=== PATIENT | male | born 1985 | race Caucasian/White ===

== ENCOUNTER 2022-05-22 08:07 | Emergency (ER) | payer BC, SELFPAY ==
[2022-05-22] VITALS (17 sets, daily range): BP systolic 123–155; BP diastolic 80–101; PULSE 76–88; RESP 14–30; TEMP 36.8; O2SAT 95–98; BMI 38.0; BMI 37.7
--- NOTE | 2022-05-22 08:13 | ED.RN ---
DR. ALEXIS AWARE
--- NOTE | 2022-05-22 08:29 | EKG12_ITS ---
Test Reason : DYSRHYTHMIA Blood Pressure : / mmHG Vent. Rate : 077 BPM Atrial Rate : 077 BPM P-R Int : 190 ms QRS Dur : 094 ms QT Int : 368 ms P-R-T Axes : 015 029 013 degrees QTc Int : 416 ms Normal sinus rhythm Normal ECG Confirmed by KESHA REZA, JESSE ([id number]), videotape editor DONNIE MULLER ([id number]) on 05/24/2022 6:23:59 AM Referred By: REUBEN Confirmed By:CIELO REBOLLEDO MD
--- NOTE | 2022-05-22 08:29 | CT_ITS ---
STUDY: CT HEAD STROKE PROTOCOL W/O CONTRAST INJECTION REASON FOR EXAM: Male, 36 years old. Neuro deficit, acute, stroke suspected; RUE weak RADIATION DOSAGE (If Supplied By Facility): CTDIvol = ( ) mGy, DLP = ( ) mGycm TECHNIQUE: Transaxial CT imaging of the brain was performed without administration of intravenous contrast material. Individualized dose optimization techniques were used for this CT. COMPARISON: No relevant priors. FINDINGS: Normal soft tissue structures. Normal calvarium. Normal size ventricles and extra-axial spaces for the patient''s age. Normal white matter tracts of the cerebral hemispheres. There is a 2 cm x 1.4 cm well-defined hematoma in the left basal ganglion in the anterior aspect of the thalamus and posterior aspect of the putamen. Normal brainstem. Normal cerebellum. There is no intracranial hemorrhage. There are no findings of an acute ischemic infarction. Normal visualized paranasal sinuses. ASPECT score: 8 CT/STROKE Brain/Head without Cont IMPRESSION: 2 cm x 1.4 cm well-defined hematoma in the left basal ganglia as described. N.B. : The above Results were Read Back by Rolo Parker MD to Armen Hsieh and understanding confirmed on 05/22/2022 09:15:55 (ET). Electronically Signed: Rolo Parker MD at 9:17 EST ,
--- NOTE | 2022-05-22 08:30 | ED.VIS.STROK ---
HPI History of Present Illness Chief Complaint: Neuro S/Sx Informant: patient and family (mother) Onset/Context/Timing Onset: Yesterday Context: - (Unknown onset, but noticed weakness in his right upper extremity last night 2029) Timing: Continuous Quality and Location: Positive for Right Facial Droop (According to mother) and Right Arm Weakness Current Severity: Moderate Maximum Severity: Moderate Worsened by: Nothing Relieved by: Nothing Associated Symptoms Associated Symptoms: Positive for Headache (Off and on but not unusual for him); Negative for Nausea, Vomiting or Chest Pain Narrative Narrative: Patient is a healthy 36-year-old male, he was normal at work yesterday, but today he was weak with his right upper extremity and having trouble writing. He is right-hand dominant. Mother is noticing a right facial droop, but she, the father, and the patient all agree that he is talking normally. He has had no trouble understand what others are saying or speaking. He has had no trouble walking or leg weakness. He denies any numbness or tingling. He first noticed this last night when he was trying to lift things up over his head, however he does not know when exactly the time of onset was. He has had no falls or injuries. No chest symptoms. He takes no medications and does not know substances/drugs. PFSH PFSH Medical History no medical history no medical history Home Medications NK 05/22/22 [History Last Taken Unknown] Allergy/AdvReac Type Severity Reaction Status Date / Time No Known Allergies Allergy Verified 05/22/22 08:08 Surgical History no surgical history no surgical history Social History Smoking Status: Never smoker ROS ROS ED Constitutional Constitutional ED: Denies chills or fever(s) Eyes Eyes: Denies change in vision or diplopia ENT ENT ED: Denies rhinorrhea or sore throat Cardiovascular Cardiovascular: Denies chest pain or palpitations Respiratory/Chest Respiratory/Chest: Denies cough or dyspnea Gastrointestinal Gastrointestinal: Denies abdominal pain, diarrhea, nausea or vomiting Genitourinary Genitourinary ED: Denies dysuria or hematuria Musculoskeletal Musculoskeletal: Denies back pain or neck pain Integumentary Denies abscess or rash Neurologic Neurologic: Reports as per HPI, headache(s) and weakness; Denies paresthesias Psychiatric Psychiatric: Denies anxiety or suicidal thoughts EXAM Physical Exam Const Vital Signs: 05/22/22 08:09 05/22/22 08:40 05/22/22 08:40 Temperature 98.2 F Temperature Source Temporal Pulse Rate 88 77 Respiratory Rate 14 30 H Blood Pressure 147/96 H 135/94 H Blood Pressure Mean 113 107 Pulse Ox 97 97 97 Oxygen Delivery Method Room Air Room Air Room Air 05/22/22 08:45 05/22/22 08:59 05/22/22 09:28 Temperature Temperature Source Pulse Rate 85 82 Respiratory Rate 20 H 20 H Blood Pressure 135/94 H 132/100 H Blood Pressure Mean 107 110 Pulse Ox 97 96 96 Oxygen Delivery Method Room Air Room Air Room Air 05/22/22 09:31 05/22/22 09:31 05/22/22 09:46 Temperature Temperature Source Pulse Rate 87 86 84 Respiratory Rate 28 H 18 18 Blood Pressure 152/93 H 152/93 H 150/101 H Blood Pressure Mean 112 112 117 Pulse Ox 97 97 97 Oxygen Delivery Method Room Air Room Air 05/22/22 09:59 05/22/22 10:01 05/22/22 10:13 Temperature Temperature Source Pulse Rate 82 78 76 Respiratory Rate 16 20 H 16 Blood Pressure 155/80 H 155/80 H 144/93 H Blood Pressure Mean 105 105 110 Pulse Ox 96 95 95 Oxygen Delivery Method Room Air Room Air Room Air 05/22/22 10:15 05/22/22 10:30 05/22/22 10:48 Temperature Temperature Source Pulse Rate 80 76 76 Respiratory Rate 18 18 18 Blood Pressure 140/88 H 130/93 H 151/99 H Blood Pressure Mean 105 105 116 Pulse Ox 95 98 96 Oxygen Delivery Method Room Air Room Air 05/22/22 10:45 05/22/22 11:00 05/22/22 11:00 Temperature Temperature Source Pulse Rate 76 81 83 Respiratory Rate 20 H 18 18 Blood Pressure 151/99 H 123/84 H 123/84 H Blood Pressure Mean 116 97 97 Pulse Ox 96 95 95 Oxygen Delivery Method Room Air Room Air Room Air 05/22/22 11:15 05/22/22 11:20 Temperature Temperature Source Pulse Rate 78 78 Respiratory Rate 16 16 Blood Pressure 123/81 H 123/81 H Blood Pressure Mean 95 95 Pulse Ox 96 98 Oxygen Delivery Method Room Air Positive well nourished and well developed General Appearance ED: well developed and NAD HEENT Reports moist mucous membranes normocephalic and atraumatic Eyes PERRL and EOMs intact bilaterally Neck full ROM and supple Resp normal respiratory effort and clear to auscultation bilaterally Cardio regular rate, regular rhythm and no murmurs GI non-tender and non-distended Auscultation: normoactive bowel sounds Palpation: soft Back/Spine no CVA tenderness General Back: other FROM Extremity normal to inspection General Extremety ED: Negative for edema, pulses abnormal or tenderness General Extremity: Negative for edema or pulses abnormal Neuro oriented x3, CN's II-XII intact bilaterally and no sensory deficits noted Neuro Narrative: Weakness with drift only, right upper extremity only. Slight right lower facial droop, it corrects when he smiles. Normal neurologic exam otherwise. Sensorium / Orientation: awake and alert Psych mental status grossly normal Skin no rashes or lesions noted and no wounds NIHSS NIHSS Initial: 1a Level of Consciousness: 0 1b LOC Questions (Score 2 if aphasic/stupor): 0 1c LOC Commands (Only score 1st attempt): 0 2 Best Gaze (If aphasic, use reflexive mvmts.): 0 3 Visual: 0 4 Facial Palsy: 1 5 Motor Arm Right (UN = amputation/fusion): 1 5 Motor Arm Left: 0 6 Motor Leg Right: 0 6 Motor Leg Left: 0 7 Limb ataxia (Only + if out of proportion): 0 8 Sensory (Aphasia/stupor=0 or 1, coma=2): 0 9 Best Language: 0 10 Dysarthria (mute, coma=2, intubated=UN): 0 11 Extinction and Inattention (only scored if +): 0 Total Score: 2 MDM MDM MDM Narrative Medical decision making narrative: Emergent stroke CT ordered, it shows a left basal ganglia bleed without mass-effect. I quickly discussed with family, they are okay going to [facility] for this, I discussed with radiologist. My interpretation of the CT agrees with that of the radiologist. Also discussed with Dr. Das on the hemorrhage line at [facility] who accepts the patient, agrees to get the patient there emergently via air, my clinical judgment is that the patient does not need airway protection via intubation at this time since he is awake and communicative and doing very well, and this started last night and there is no evidence of a quickly expanding large hemorrhage. There is no evidence of mass-effect/shift/herniation on the CT. Patient is getting angiography prior to transfer and we are sending the images, and calling for air transport. At this time his blood pressure is 132 systolic, prn antihypertensives are ordered to be given as needed to keep him out of below 140. CTA images reviewed, my interpretation of the CT agrees with that of the radiologist. Patient's blood pressure did end up climbing, so after several doses of antihypertensives were given and he climbed again, patient was placed on a nicardipine drip prior to transfer. Patient left in same condition as prior evaluation, stable airway and level of consciousness, conversive. Lab Data Attestation: I reviewed the patient's lab results. Labs: Laboratory Results - last 24 hr 05/22/22 05/22/22 05/22/22 08:42 08:42 08:42 WBC 7.6 RBC 5.72 Hgb 16.8 H Hct 49.5 MCV 86.5 MCH 29.4 MCHC 33.9 RDW Std Deviation 38.9 RDW Coeff of Jordi 12.4 Plt Count 272 MPV 9.0 Immature Gran % (Auto) 0.300 Neut % (Auto) 64.8 Lymph % (Auto) 23.7 [place] % (Auto) 8.3 Eos % (Auto) 2.1 Baso % (Auto) 0.8 Absolute Neuts (auto) 4.9 Absolute Lymphs (auto) 1.79 Nucleated RBC % 0 PT 13.5 INR 1.1 APTT 31.9 Sodium 139 Potassium 4.4 Chloride 106 Carbon Dioxide 30.0 Anion Gap 3 L BUN 16 Creatinine 1.05 Estim Creat Clear Calc 86.08 Est GFR (MDRD) Af Amer 101 Est GFR (MDRD) Non-Af 84 BUN/Creatinine Ratio 15.2 Glucose 121 H Calcium 9.4 Troponin I High Sens 7 POC Glucose 05/22/22 08:42 WBC RBC Hgb Hct MCV MCH MCHC RDW Std Deviation RDW Coeff of Jordi Plt Count MPV Immature Gran % (Auto) Neut % (Auto) Lymph % (Auto) [place] % (Auto) Eos % (Auto) Baso % (Auto) Absolute Neuts (auto) Absolute Lymphs (auto) Nucleated RBC % PT INR APTT Sodium Potassium Chloride Carbon Dioxide Anion Gap BUN Creatinine Estim Creat Clear Calc Est GFR (MDRD) Af Amer Est GFR (MDRD) Non-Af BUN/Creatinine Ratio Glucose Calcium Troponin I High Sens POC Glucose 117 H Radiography Diagnostic Testing: Clinical Impression(s) from Imaging Studies Brain CT 05/22/22 08:29 IMPRESSION: 2 cm x 1.4 cm well-defined hematoma in the left basal ganglia as described. N.B. : The above Results were Read Back by Rolo Parker MD to Armen Hsieh and understanding confirmed on 05/22/2022 09:15:55 (ET). Electronically Signed: Rolo Parker MD at 9:17 EST , ADDENDUM: 05/22/2224 IMPRESSION: 2 cm x 1.4 cm well-defined hematoma in the left basal ganglia as described. N.B. : The above Results were Read Back by Rolo Parker MD to Armen Hsieh and understanding confirmed on 05/22/2022 09:15:55 (ET). Electronically Signed: Rolo Parker MD at 9:17 EST , Chest X-Ray 05/22/22 09:00 IMPRESSION: Borderline cardiomegaly. The lungs are clear. Electronically Signed: Rolo Parker MD at 9:19 EST , Head/Neck CTA 05/22/22 09:15 IMPRESSION: 1.6 cm x 1.9 cm localized hyperdense mass in the left basal ganglion with the decreased caliber of the left anterior cerebral artery. The hyperdensity is fed by branches from the left middle cerebral artery. The differential diagnosis should include either localized bleed versus mass lesion. Less likely. This represents an aneurysm. N.B. : The above Results were Read Back by Rolo Parker MD to Armen Hsieh MD, and understanding confirmed on 05/22/2022 09:51:51 (ET). Electronically Signed: Rolo Parker MD at 9:53 EST , ADDENDUM: 05/22/22 0959 IMPRESSION: 1.6 cm x 1.9 cm localized hyperdense mass in the left basal ganglion with the decreased caliber of the left anterior cerebral artery. The hyperdensity is fed by branches from the left middle cerebral artery. The differential diagnosis should include either localized bleed versus mass lesion. Less likely. This represents an aneurysm. N.B. : The above Results were Read Back by Rolo Parker MD to Armen Hsieh MD, and understanding confirmed on 05/22/2022 09:51:51 (ET). Electronically Signed: Rolo Parker MD at 9:53 EST , Rhythm Strip Rhythm Strip: Sinus Rhythm Rate: 75 Ectopy: None EKG Initial EKG: Attestation: I personally reviewed and interpreted this EKG as follows: Interpretation: Sinus Rhythm and No Acute Injury Pattern Comments: normal EKG Stroke Documentation Questions Stroke Team Activated: No (Out of tPA window, no cortical symptoms) Was Patient considered for Endovascular Intervention?: No-CTA not indicated IV Alteplase (t-PA) Administered: No (Due to timing) Critical Care Time Critical Care Time: Yes Critical care time (excluding procedures): 30-74 minutes (40 min), Including time spent:, Discussing w/Patient &/or Family/Insect Control Aide, Discussing w/Consultants, Arranging Admission or Transfer and Performing Direct Patient Care at Bedside Discharge Plan Triage Chief Complaint: Neuro S/Sx ED Provider: Armen Hsieh Dx/Rx/DC Orders Clinical Impression: Hemorrhagic stroke Prescriptions: No Action NK Primary Care Provider: Mario Moreira Referrals: Mario Moreira DO [Primary Care Provider] - Disposition Disposition: Acute Care Hospital Discharge Location: [facility] Discharge Date/Time: 05/22/22 11:29
[2022-05-22 08:53] LABS: Absolute Lymphocyte Count 1.79 X10^3/uL (0.83-4.51); Absolute Neutrophil Count 4.9 X10^3/uL (2.0-7.7); Basophil# 0.06 X10^3/uL; Basophil% 0.8 % (0-1); Eosinophil# 0.16 X10^3/uL; Eosinophils% 2.1 % (0-5); Hematocrit 49.5 % (40-54); Hemoglobin 16.8 g/dL (13.0-16.5); Lymphocyte # 1.79 X10^3/ul (0.83-4.51); Lymphocyte % 23.7 % (19-41); Mean Corp Hgb Conc 33.9 g/dL (32-36); Mean Corpuscular Hgb 29.4 pg (27.0-32.0); Mean Corpuscular Volume 86.5 fL (80-94); Monocyte# 0.63 X10^3/uL; Monocyte% 8.3 % (0-10); NRBC Flagged by Analyzer 0 % (0-5); Neutrophil # 4.89 X10^3/uL (2.7-7.7); Neutrophil % 64.8 % (47-70); Platelet Count 272 K/mm3 (150-450); RBC Distribution Width CV 12.4 % (11.6-14.6); RBC Distribution Width SD 38.9 fl (35.1-43.9); Red Blood Count 5.72 M/mm3 (4.6-6.2); White Blood Count 7.6 K/mm3 (4.4-11.0)
--- NOTE | 2022-05-22 09:00 | RAD_ITS ---
STUDY: X-RAY CHEST REASON FOR EXAM: Male, 36 years old. Neuro deficit, acute, stroke suspected TECHNIQUE: Single AP portable view of the chest. COMPARISON: None. FINDINGS: EKG electrodes are seen. The lungs are clear and expanded. There is no demonstrated pleural abnormality. There is borderline cardiomegaly. Normal mediastinum and guilherme. Normal visualized pulmonary arteries. Normal visualized aortic arch and descending thoracic aorta. Normal visualized thoracic spine. Normal visualized ribs, clavicles, and shoulders. There is no demonstrated abnormality of the visualized soft tissue structures of the upper abdomen. RAD/Chest 1 View IMPRESSION: Borderline cardiomegaly. The lungs are clear. Electronically Signed: Rolo Parker MD at 9:19 EST ,
[2022-05-22 09:01] LABS: Bedside Glucose 117 mg/dL (74-106); International Normalized Ratio 1.1; Partial Thromboplast Time 31.9 Seconds (24.1-36.2); Prothrombin Time (Protime)PT. 13.5 SECONDS (11.7-14.9)
[2022-05-22 09:11] LABS: Anion Gap 3 (5-15); BUN 16 mg/dL (7-18); BUN/Creat Ratio 15.2 RATIO (10-20); Calcium,Total 9.4 mg/dL (8.5-10.1); Chloride 106 mmol/L (98-107); Creatinine, Serum 1.05 mg/dL (0.70-1.30); EST Glomerular Filtration Rate 84 mL/min (>60); Est Glom Filt Rate - Afr Amer 101 mL/min (>60); Estimated Creatinine Clearance 86.08 ml/min; Glucose 121 mg/dL (74-106); Potassium 4.4 mmol/L (3.5-5.1); Sodium Level 139 mmol/L (136-145); Troponin-I HS 7 pg/mL (3.0-78.0)
--- NOTE | 2022-05-22 09:15 | CT_ITS ---
STUDY: CTA HEAD AND NECK WITH CONTRAST REASON FOR EXAM: Male, 36 years old. ICH RADIATION DOSAGE (If Supplied By Facility): CTDIvol = ( 18.08 ) mGy, DLP = ( 755.19 ) mGycm TECHNIQUE: CT angiography was performed with a multi-detector CT scanner. Data acquisition was obtained from the skull base through the vertex following intravenous administration of IV 100mL [id number]-[id number]. MIP images were reconstructed from the axial data set. Post-processing of the angiographic images was performed, with multiplanar reformation and 3D reconstruction. Individualized dose optimization techniques were used for this CT. COMPARISON: No relevant priors. FINDINGS: Normal bilateral petrous carotid arteries. Normal right cavernous carotid artery with a normal supraclinoid bifurcation. Normal left cavernous carotid artery with a normal supraclinoid bifurcation. Normal right A1 segments of the anterior cerebral artery. There is hypoplastic development of the left A1 segment of the anterior cerebral arteries with an atretic but intact artery. Normal intact anterior communicating artery (ACOM). Normal bilateral A2 segments of the anterior cerebral arteries. Normal right M1 and M2 segments of the middle cerebral arteries, with a normal M1 bifurcation. Normal left M1 and M2 segments of the middle cerebral arteries, with a normal M1 bifurcation. Normal right posterior communicating artery (PCOM). Normal left posterior communicating artery (PCOM). Normal bilateral vertebral arteries. Normal basilar artery with a normal basilar bifurcation. The visualized bilateral superior cerebellar (SCA) arteries are normal. Normal bilateral P1, P2 and visualized P3 segments of the posterior cerebral arteries. There is no demonstrated aneurysm of the [place]. There is a 1.6 x 1.9 cm localized hyperdense mass in the left thalamus. This hyperdensity is fed by the left M1 segment. Correlation with MRI is recommended. AORTIC ARCH: Normal visualized aortic arch. Normal origins of the brachiocephalic, left common carotid, and left subclavian arteries. RIGHT CAROTID ARTERIES: Normal right common carotid artery (CCA). Normal right common carotid bulb. Normal origin of the right internal carotid (ICA) artery without a hemodynamically significant stenosis. Normal visualized cervical portion of the right internal carotid artery. Normal origin of the right external carotid artery (ECA). LEFT CAROTID ARTERIES: Normal left common carotid artery (CCA). Normal left common carotid bulb. Normal origin of the left internal carotid (ICA) artery without a hemodynamically significant stenosis. Normal visualized cervical portion of the left internal carotid artery. Normal origin of the left external carotid artery (ECA). VERTEBRAL ARTERIES: Normal bilateral vertebral arteries. CT/STROKE CTA Head AND Neck W/Con IMPRESSION: 1.6 cm x 1.9 cm localized hyperdense mass in the left basal ganglion with the decreased caliber of the left anterior cerebral artery. The hyperdensity is fed by branches from the left middle cerebral artery. The differential diagnosis should include either localized bleed versus mass lesion. Less likely. This represents an aneurysm. N.B. : The above Results were Read Back by Rolo Parker MD to Armen Hsieh MD, and understanding confirmed on 05/22/2022 09:51:51 (ET). Electronically Signed: Rolo Parker MD at 9:53 EST ,
[2022-05-22] MEDS: Labetalol (Prefilled) 20 MG/4 ML IV ×2 (09:56→10:12)
[2022-05-22] MEDS: Nicardipine HCl-0.9% Sod Chlor 20 MG/200 ML IV.SOLN 50 MG CONT INF (10:48)
== END 2022-05-22 11:29 | disposition short-term general hospital (02) ==
PROVIDERS: Emergency Provider Emergency Medicine; PCP Family Medicine; Visit Provider Emergency Medicine
DX: I63.9 Cerebral infarction, unspecified (principal); G83.21 Monoplegia of upper limb affecting right dominant side; R29.810 Facial weakness; R29.702 NIHSS score 2
CPT/HCPCS: 70450; 70496; 70498; 71045; 80048; 82962; 84484; 85025; 85610; 85730; 87426; 93005; 96365; 96375; 99285; Q9967; A4216

== ENCOUNTER 2022-06-07 16:42 | Inpatient (IN) | payer BC, SELFPAY ==
[2022-06-07 16:52] VITALS: BP 112/75; PULSE 84; RESP 16; TEMP 36.7; O2SAT 97; BMI 39.2
[2022-06-07 19:36] VITALS: BP 109/74; PULSE 83; RESP 16; TEMP 36.8; O2SAT 98
[2022-06-07] MEDS: Acetaminophen 325 MG Tablet 650 MG PO ×2 (20:04→23:00)
[2022-06-07] MEDS: 0.9% Saline Lock 10 ML Syringe IV ×2 (20:15→23:00)
[2022-06-07 22:00] VITALS: PULSE 83; RESP 16; O2SAT 98
[2022-06-07] MEDS: Menthol/Lanolin/Calamine/Znox 113 GM Tube 1 APPLIC TOPICAL (22:43)
[2022-06-07] MEDS: Atorvastatin Calcium 20 MG Tablet GT (22:46)
[2022-06-07] MEDS: APIXABAN 5 MG TABLET 10 MG GT (22:46)
[2022-06-07] MEDS: Carvedilol 3.125 MG TABLET GT (22:46)
[2022-06-08] MEDS: Acetaminophen 325 MG Tablet 650 MG PO ×4 (05:31→23:13)
[2022-06-08 06:53] LABS: Hemoglobin 11.8 g/dL (13.0-16.5); Mean Corp Hgb Conc 32.8 g/dL (32-36); Mean Corpuscular Hgb 30.5 pg (27.0-32.0); Mean Platelet Vol. 8.7 fl (6.2-12.0); Platelet Count 533 K/mm3 (150-450); RBC Distribution Width CV 15.3 % (11.6-14.6); RBC Distribution Width SD 51.1 fl (35.1-43.9); Red Blood Count 3.87 M/mm3 (4.6-6.2); White Blood Count 9.1 K/mm3 (4.4-11.0)
[2022-06-08 07:25] LABS: ALB/GLOB Ratio 0.7 RATIO (0.9-2.4); AST(SGOT) 52 U/L (15-37); Alanine Aminotransfer ALT/SGPT 59 U/L (16-61); Albumin, Serum 2.8 g/dL (3.2-5.0); Alkaline Phosphatase 99 U/L (45-117); Anion Gap 4 (5-15); BUN 21 mg/dL (7-18); BUN/Creat Ratio 30.1 RATIO (10-20); Calcium,Total 9.1 mg/dL (8.5-10.1); Chloride 100 mmol/L (98-107); EST Glomerular Filtration Rate 134 mL/min (>60); Est Glom Filt Rate - Afr Amer 163 mL/min (>60); Estimated Creatinine Clearance 129.12 ml/min; Glucose 113 mg/dL (74-106); Magnesium 2.2 mg/dL (1.6-2.6); Phosphorus 4.3 mg/dL (2.5-4.9); Potassium 4.3 mmol/L (3.5-5.1); Protein, Total 6.8 g/dL (6.4-8.2); Sodium Level 135 mmol/L (136-145)
[2022-06-08 07:56] VITALS: BP 111/75; PULSE 80; RESP 15; TEMP 36.4; O2SAT 97
[2022-06-08] MEDS: Carvedilol 3.125 MG TABLET GT ×2 (08:17→21:17)
[2022-06-08] MEDS: APIXABAN 5 MG TABLET 10 MG GT ×2 (08:17→21:18)
[2022-06-08] MEDS: Menthol/Lanolin/Calamine/Znox 113 GM Tube 1 APPLIC TOPICAL ×2 (08:17→21:16)
[2022-06-08] MEDS: Lisinopril 40 MG Tablet GT (08:17)
--- NOTE | 2022-06-08 11:38 | HP.PCM_ITS ---
[facility] - General General Date of Admission: 06/07/22 Date of Service: 06/08/22 Chief Complaint: Debility due to SAH, L MCA stroke, craniectomy. HPI Narrative ROMEO MARTÍNEZ, is a 36 M YO with no significant PMH and on no prescription medications who presented to the ED at [facility] on 05/22/22 With ANGUIANO and new onset R facial droop and R side weakness. the RUE weakness had started the preceding evening. Initial blood pressure was 147/96. Initial NIHSS score was 2 right facial droop and right upper extremity drift. Emergent noncontrast CT brain showed a left basal ganglia hematoma measuring 2cm X 1.4cm without mass-effect. CTA of the head and neck showed a 1.6 cm x 1.9 cm localized hyperdense mass in the left basal ganglion with decreased caliber of the left anterior cerebral artery. There was a broad necked unruptured L MCA aneurysm. The ER physician communicated with the cerebral hemorrhage hotline at [facility] and the pt was emergently transferred to [facility] by [facility]. He had been having intermittent ANGUIANO's for months prior to the bleed. There is no FH of cerebral aneurysms. He was immediately evaluated at [facility] by neurosurgery and was taken to surgery emergently. Clipping of the aneurysm was attempted but, failed. Noncontrast CT brain on 05/23/2022 showed hemorrhage in the fourth ventricle with some hydrocephalus and possible LF CVA. There was complete occlusion of the L MCA with distal reconstruction. Followup in 6H showed worsening edema and mass- effect with a midline shift of 7 mm. There was mild generalized herniation. On [address] head showed a midline shift that had increased up to 8.6 mm and the patient was taken to surgery for craniectomy. Postoperatively MRI of the brain showed a large left middle cerebral artery ischemic stroke. CT brain on 05/28/22 was stable with suspected mild petechial hemorrhage. Antiplatelet therapy with aspirin was started on 05/25/2022 per neurosurgery due to ischemic complication during an attempted aneurysm clipping. On 05/28/22 he passed a spontaneous breathing trial and was extubated. He had been intubated for 7 days. Significant lab at [facility] included a LDL of 178 and a HGBA1C of 5.5. He was started on a statin and SSI for stress hyperglycemia. He was started on Lisin opril to manage HTN. A transthoracic echocardiogram showed a normal left ventricular ejection fraction with no PFO or source of stroke identified. While on the ventilator he developed pneumonia and cultures were positive for Klebsiella Aerogenes. He was treated with 7 days of Cefepime. He had a Sheffield catheter which was inserted on 05/25/22 and removed on 05/29/22. PEG tube was inserted on 06/04/2022. [facility] Medical History (Updated 06/10/22 @ 19:[address] Kristyn Wallace DO) Aneurysm of middle cerebral artery Arterial ischemic stroke, MCA (middle cerebral artery), left, acute Hypertension Obesity (BMI 30-39.9) Stroke/cerebrovascular accident Subarachnoid hemorrhage Home Medications acetaminophen 325 mg tablet (Tylenol) 650 mg feeding tube Q6H pain 06/07/22 [History Last Taken Unknown] apixaban 5 mg tablet (Eliquis) 10 mg feeding tube BID blood thinner 06/07/22 [History Last Taken Unknown] atorvastatin 20 mg tablet 20 mg feeding tube QHS reduce cholesterol 06/07/22 [History Last Taken Unknown] carvedilol 3.125 mg tablet 3.125 mg feeding tube BID bp 06/07/22 [History Last Taken Unknown] lisinopril 40 mg tablet 40 mg feeding tube DAILY bp 06/07/22 [History Last Taken Unknown] senna-docusate sodium tablet 2 tab PO BID PRN Constipation 06/07/22 [History Last Taken Unknown] Allergy/AdvReac Type Severity Reaction Status Date / Time No Known Allergies Allergy Verified 05/22/22 08:08 Surgical History (Updated 06/08/22 @ 13:[address] Kristyn Wallace DO) Status post aneurysm repair Status post craniotomy Social History Smoking Status: Never smoker ROS Review of Systems ROS Unobtainable: other Details: due to severe global aphasia Vital Signs Vital Signs Vital Signs: 06/07/22 16:52 06/07/22 19:36 06/07/22 22:00 Temperature 98.0 F 98.2 F Temperature Source Oral Temporal Pulse Rate 84 83 83 Respiratory Rate 16 16 16 Respiratory Effort Normal Respiratory Depth Normal Respiratory Pattern Normal Blood Pressure 112/75 109/74 Blood Pressure Mean 87 85 Blood Pressure Source Monitor Monitor Blood Pressure Position Semi-Fowlers Sitting Blood Pressure Location Left Arm Left Arm Pulse Ox 97 98 98 Oxygen Delivery Method Room Air Room Air Room Air 06/08/22 07:56 06/08/22 10:00 Temperature 97.6 F L Temperature Source Oral Pulse Rate 80 Respiratory Rate 15 Respiratory Effort Normal Non-Labored Respiratory Depth Normal Respiratory Pattern Normal Blood Pressure 111/75 Blood Pressure Mean 87 Blood Pressure Source Monitor Blood Pressure Position Semi-Fowlers Blood Pressure Location Left Arm Pulse Ox 97 Oxygen Delivery Method Room Air Room Air Weight Weight: 243 lb Body Mass Index (BMI) 39.2 Indicators for Scoring Admitted with or Primary Diagnosis of CVA/Stroke: Yes Hx of CVA/Stroke: No Modified Mildred Score MRS Score at time of Evaluation: 5-Severe disability NIHSS NIHSS 1a. Level of Consciousness: Alert; keenly responsive 1b. LOC Questions: Answers neither question correctly. (he is aphasic) 1c. LOC Commands: Performs both tasks correctly. 2. Best Gaze: Normal 3. Visual: No visual loss 4. Facial Palsy: Minor paralysis (flattened nasolabial fold, asymmetry on smiling) 5a. Left Arm: No drift; arm holds 90 (or 45) degrees for full 10 seconds 5b. Right Arm: No movement 6a. Left Leg: No drift; leg holds 30-degree position for full 5 seconds 6b. Right Leg: No movement 8. Sensory: [id number] sensory loss; (R side) 9. Best Language: Severe aphasia; 10. Dysarthria: [id number]-[id number] dysarthria; 11. Extinction and Inattention: Visual, tactile, auditory, spatial, or personal inattention Total: 16 Stroke Questions Stroke Team Activated: No Physical Exam Const alert and no apparent distress Constitutional Narrative: No SOB lying almost flat in bed. Tearful during my exam. Pt and family ag reeable to an antidepressant. General Appearance: cooperative HEENT HEENT Narrative: L frontotemporal craniotomy scar - intact with no lorenza-incisional erythema, no dehiscence, no purulent DC. He has some cerebral edema. Mouth: dry mucous membranes Eyes PERRL and EOMs intact bilaterally Eyes Narrative: No discharge from the eyes, no scleral injection, no mattering of the eyelids, no scleral icterus. Neck no JVD, No nodes and no carotid bruits General: trachea midline Resp normal respiratory effort and clear to auscultation bilaterally Effort and Inspection: Negative for tachypneic or respiratory distress Auscultation: Negative for rales, rhonchi or wheezes Cardio regular rate, regular rhythm and no gallops GI normal to inspection, nondistended, normoactive bowel sounds, soft to palpation and non-tender GI Narrative: .No guarding with palpation. PEG site has no discharge and there is no erythema. He had no pain with palpation around the site. Extremity normal capillary refill General Extremity: Negative for clubbing, cyanosis or edema Skin Rashes: no rashes Wounds: wounds noted other He has a stage II decubitus ulcer on the right buttock with no odor and no increased warmth to touch or DC. I suspect this is related to friction/shear from pulling him up in bed. Neuro Neuro Narrative: Right side neglect. Leans heavily to the right when sitting edge of bed. Able to follow simple commands most of the time......some slowness in processing time. No gaze preference. No nystagmus. R facial droop, R hemiparesis. See NIHSS scoring Psych cooperative; Negative for thought process normal Attitude: No agitated Mood & Affect: flat affect Results Lab / Micro Data Result Diagrams: 06/11/22 05:19 06/11/22 05:19 Labs: Laboratory Results - last 24 hr 06/08/22 06:16: WBC 9.1, RBC 3.87 L, Hgb 11.8 L, Hct 36.0 L, MCV 93.0, MCH 30.5, MCHC 32.8, RDW Std Deviation 51.1 H, RDW Coeff of Jordi 15.3 H, Plt Count 533 H, MPV 8.7 06/08/22 06:16: Sodium 135 L, Potassium 4.3, Chloride 100, Carbon Dioxide 31.0, Anion Gap 4 L, BUN 21 H, Creatinine 0.70, Estim Creat Clear Calc 129.12, Est GFR (MDRD) Af Amer 163, Est GFR (MDRD) Non-Af 134, BUN/Creatinine Ratio 30.1 H, Glucose 113 H, Calcium 9.1, Phosphorus 4.3, Magnesium 2.2, Total Bilirubin 0.30, AST 52 H, ALT 59, Alkaline Phosphatase 99, Total Protein 6.8, Albumin 2.8 L, Globulin 4.0, Albumin/Globulin Ratio 0.7 L Assessment & Plan Assessment/Plan (1) Debility: (2) Subarachnoid hemorrhage: PLAN: Presented with this to the ED due to a leaking L MCA aneurysm. (3) Status post aneurysm repair: PLAN: There was an attempt to clip LMCA aneurysm but, it failed and the artery dissected. (4) Arterial ischemic stroke, MCA (middle cerebral artery), left, acute: PLAN: Due to dissection of the L MCA during attempt to clip aneurysm of the L MCA. (5) Dissection of cerebral artery: PLAN: L MCA causing an ischemic CVA (6) Status post craniotomy: (7) Acquired skull defect: (8) Cerebral edema: (9) Cognitive dysfunction due to stroke: (10) Raymond-inattention: (11) Dysphagia: (12) Global aphasia: (13) Acute blood loss anemia: (14) DVT (deep venous thrombosis): (15) Current use of intermediate manager anticoagulation: PLAN: For DVT (16) Hypertension: (17) Elevated blood sugar: (18) Hyponatremia: (19) Thrombocytosis: (20) Obesity (BMI 30-39.9): (21) Presence of externally removable percutaneous endoscopic gastrostomy (PEG) tube: PLAN: Plan PLAN PT for gait stability OT for ADL's ST for evaluation Analgesics as needed Bowel protocol Fall precautions Assess for Anxiety/Depression GI prophylaxis-not at this time however if the hemoglobin drops we will check a Hemoccult stool and if it is positive start a PPI. DVT prophylaxis -he is currently on Eliquis with a loading dose for DVT Follow up with neurosurgery, neurology, PCP following DC from [facility] AM lab including CMP, CBC, Mag and Phos - was personally reviewed NACL tabs for hyponatremia Recheck an HH and a BMP on 06/11 I discussed starting an antidepressant with the pt and the family and they are agreeable. Romeo is tearful and I would expect him to be depressed......his has had a catastrophic change in his life and likely will always be disabled to some degree. Charges/Coding Visit Charges Inpatient E&M: 54321 Init Hosp L3
--- NOTE | 2022-06-08 13:32 | REHABEVAL_ITS ---
Admission Information Primary Diagnosis:: Post stroke debility with R hemiparesis, dysphagia, aphasia and R side neglect. Status Changes from Prescreening?: No changes Identified Actual Problem List:: Pain, ALteration in Cmfrt, Cognitve Impr/Memory Loss, Depression, Bladder Incontinence, Alteration in Sleep, Mobility Impaired, Self Care Deficit, BP, Hypertension and Alteration-Leisure Activ. Potential Problem List:: DVT, Bleeding, Infection, UTI, Aspiration, Falls, Skin Integrity and Depression Risk of Complications DVT: ABNER Hose and - (Eliquis 5 mg twice daily following loading doses) Bleeding: Monitor Lab Values, Nursing to Teach Precautions for anti-coagulation therapy., Wound, if applicable, to be assessed every shift. and Stroke patients assessed for lethargy or change in status. Infection: Clinical Staff to Monitor for S/S of infection: and S/S of infection include fever, redness, warmth, etc. Urinary Tract Infection: Monitor for frequency, burning, discomfort, or incontinence. and Nursing will obtain urine sample for urinalysis and C&S when ordered. Aspiration: Clinical staff will monitor for coughing, drooling, congestion., Speech will evaluate swallowing and dsyphasia. and Nursing will monitor patient swallowing during meals. Falls: Patient will be evaluated for Fall Precautions and Patient will be placed on Fall Precautions as indicated per protocol. Skin Breakdown: Nursing will assess skin daily using assessment tool. and Nursing will place on Skin Breakdown Precautions as indicated. Pain: Clinical staff will assess patient's pain level per protocol., Medications will be given, if needed, and the pain level reassessed. and Other methods: Massage, distraction, decrease stimulus, etc. used PRN. Plan of Care Patient requires physician specializing in physical medicine and rehab oversight to provide close medical supervision of rehab issues including: Pain Management, Sleep Problems, Bowel and Bladder, Medical and co-morbidity Management, DVT prophylaxis, Rehabilitation Leadership and Coordination of treatment team Patient needs Physical Therapy: For a minimum of 1 hour and At least 5 out of 7 days Patient needs Physical Therapy to improve:: Mobility, Strengthening, Transfers, Stretching, ROM, Endurance, Stairs, Gait and Balance Patient needs Occupational Therapy: For a minimum of 1 hour and At least 5 out of 7 days Patient needs Occupational Therapy to improve ADL's incl.: Eating, Grooming, Bathing, Dressing, Toileting, Toilet transfers, Community Reintegration, Higher functioning activities, Household tasks, Adaptive Equipment, Splinting and Other activities as determined Patient requires speech therapy: For a minimum of 1 hour and At least 5 out of 7 days Patient requires speech therapy for: Swallowing, Cognition, Language Skills and Compensatory Strategies Patient requires 24/ Rehabilitation Nursing for: Pain Issues, Identifying and preventing risk factors, Monitoring and reporting current medical conditions, Assisting with ambulation, transfer, and all ADL's, Teaching patients about disease process and medications, Family teaching, Providing safe environment, Bowel and Bladder Issues, Skin integrity and Medication Management Patient needs Network Control Supervisor/ Case Management for: Discharge Planning, Arranging Home Equipment or Services and Family Interventions Patient needs Dietary and Nutrition Services for: Adequate Nutrition, Nutritional Supplements and Nutritional Education Goals Patient will remain: free from falls Patient will perform bed mobility at: - (Min assist of 1 person) Patient will complete transfers from bed to chair at: - (Min assist x1) Patient will ambulate: - (25 feet with a hemiwalker at mod assist x1) Patient will propel wheelchair: - (150 feet with left upper extremity and left lower extremity at contact-guard assist of 1) Patient will complete upper body dressing at: - (Contact-guard assist at edge of bed) Patient will complete lower body dressing at: - (Mod assist) Patient will complete toileting at: - (Moderate assistance) Patient will perform bathing at: - (Moderate assistance) Patient will complete grooming at: - (Contact-guard assist) Patient will have pain level of: of 3 or less Patient's skin will: remain intact Patient will receive: adequate nutrition. Discharge Planning Pt Prognosis for Sig. Practical Improv. w/in Reasonable Time: Good Estimated Length of stay (days): 42 Anticipated D/C Destination: Home w/ family or friends (And home health care) Was Preadmission Assessment Accurate?: Yes
[2022-06-08 16:37] LABS: Bacteria 0 SEEN /hpf (None Seen); Mucous, Urine 0 SEEN /hpf (<or=2+); Squamous Epithelial Cells - UA 0 SEEN /hpf (0-5); White Blood Cells 0 SEEN /hpf (0-5)
[2022-06-08 16:56] LABS: Color, Urine Straw (Yellow); Glucose, Dipstick Normal (Normal); Ketone-Dipstick Negative (Negative); Leukocyte Esterase-Dipstick Negative /ul (Negative); Nitrite-Dipstick Negative (Negative); Occult Blood-Urine 50 /ul (Negative); Protein-Dipstick Negative (Negative); Urine Bilirubin Dipstick Negative (Negative); Urine Clarity Clear (Clear); Urine Urobilinogen Normal (Normal); Urine pH 6.5 (5.0 - 8.0)
[2022-06-08 17:06] LABS: Red Blood Cells-Urine 0-5 SEEN /hpf (0-5)
[2022-06-08 20:04] VITALS: O2SAT 96
[2022-06-08 20:09] VITALS: BP 103/67; PULSE 87; RESP 16; TEMP 36.5; O2SAT 96
[2022-06-08 21:00] VITALS: O2SAT 96
[2022-06-08] MEDS: Sodium Chloride 1 GM Tablet PO (21:16)
[2022-06-08] MEDS: Atorvastatin Calcium 20 MG Tablet GT (21:17)
[2022-06-09] MEDS: Acetaminophen 325 MG Tablet 650 MG PO ×4 (05:07→23:16)
[2022-06-09 07:55] VITALS: BP 118/71; PULSE 85; RESP 16; TEMP 36.6; O2SAT 97
[2022-06-09] MEDS: APIXABAN 5 MG TABLET 10 MG GT ×2 (08:21→21:00)
[2022-06-09] MEDS: Carvedilol 3.125 MG TABLET GT ×2 (08:21→17:06)
[2022-06-09] MEDS: Sodium Chloride 1 GM Tablet PO ×2 (08:21→21:00)
[2022-06-09] MEDS: Lisinopril 40 MG Tablet GT (08:21)
[2022-06-09] MEDS: Sertraline 100 MG Tablet PO (08:21)
[2022-06-09] MEDS: Menthol/Lanolin/Calamine/Znox 113 GM Tube 1 APPLIC TOPICAL ×2 (12:33→20:59)
[2022-06-09 19:44] VITALS: BP 116/81; PULSE 97; RESP 18; TEMP 36.9; O2SAT 92
[2022-06-09 21:00] VITALS: O2SAT 93
[2022-06-09] MEDS: Atorvastatin Calcium 20 MG Tablet GT (21:00)
[2022-06-10] MEDS: Acetaminophen 325 MG Tablet 650 MG PO ×4 (05:08→23:50)
[2022-06-10 07:04] VITALS: BP 127/83; PULSE 81; RESP 15; TEMP 36.4; O2SAT 98
--- NOTE | 2022-06-10 10:55 | CASEMGMT ---
Social Work Unable to complete assessment with pt. Contacted mother to complete. Mother answered questions but stated father is more involved in the medical and financial aspect. Offered for father to contact this worker after his work hours to ask questions. Educated to [facility] insurance and continued stay is not guaranteed with each review. Educated to Team meetings. Family anticipates being present, but if not, mother requests to be involved via conference call. SW confirmed. SW broached topic if pt is unable to DC home directly from , SW to assist with alternate plan. Mother stated family works at [employer] and that would be first choice. SW inquired about financial situation with not currently working. 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 SW noted pt will be eligible for Medicaid, but will discuss further financial liability for SNF when family is more acclimated from stay. Mother stated father would ask those questions. Mother appreciative. SW contacted [employer] to notify of pt's admission and several family members are employees. Admissions aware of situation and agreeable to referral at the time. Educated to no JAYLENE, but unknown financial situation to apy privately. SW to continue to follow. See SW assessment for further details. Fabienne Peter, [employer] COUPLER [employer] CRUSHER
[2022-06-10] MEDS: Sodium Chloride 1 GM Tablet PO ×2 (11:14→22:05)
[2022-06-10] MEDS: Lisinopril 40 MG Tablet GT (11:14)
[2022-06-10] MEDS: Carvedilol 3.125 MG TABLET GT ×2 (11:14→18:14)
[2022-06-10] MEDS: APIXABAN 5 MG TABLET 10 MG GT ×2 (11:14→22:05)
[2022-06-10] MEDS: Menthol/Lanolin/Calamine/Znox 113 GM Tube 1 APPLIC TOPICAL (11:20)
--- NOTE | 2022-06-10 19:20 | PCM.PROGNOTE ---
Subjective Subjective Afebrile VSS Maintaining appropriate oxygen saturation on RA Oral intake is good. Oral intake was 1320 yesterday. Incontinent of urine Discussed with nursing - no problems that need addressed Reviewed the PT/OT/ST notes Medication list reviewed. ROS not possible due to severe aphasia. does not appear to be in pain. He is alert. Not restless. not grimacing. Not tachypneic and does not appear to be in any resp distress. Objective Data Objective Data Vital Signs: Vital Signs Temp Pulse Resp BP Pulse Ox O2 Del Method 97.5 F L 81 15 127/83 H 98 Room Air 06/10/22 07:04 06/10/22 07:04 06/10/22 07:04 06/10/22 07:04 06/10/22 07:04 06/10/22 08:29 Oxygen Delivery Method Room Air Weight: 211 lb 3.245 oz Body Mass Index (BMI) 39.2 Intake & Output: Intake and Output for Last 24 Hours 06/08/22 06/09/22 06/10/22 23:59 23:59 23:59 Intake Total 1480 / 1480 1750 / 1750 1350 / 1350 Output Total 300 / 300 Balance 1180 / 1180 1750 / 1750 1350 / 1350 Lab / Micro Data Result Diagrams: 06/11/22 05:19 06/11/22 05:19 Physical Exam Const alert and no apparent distress General Appearance: cooperative HEENT HEENT Narrative: He has marked muscle spasm in the R trapezius and SCM leading to torticollis to the Right. Mouth: dry mucous membranes Eyes PERRL and EOMs intact bilaterally Resp normal respiratory effort and clear to auscultation bilaterally Effort and Inspection: Negative for tachypneic or respiratory distress Cardio regular rate, regular rhythm and no gallops GI normal to inspection, nondistended, normoactive bowel sounds and soft to palpation GI Narrative: .No guarding with palpation. PEG site has no discharge and there is no erythema. He had no pain with palpation around the site. Extremity General Extremity: Negative for edema Skin Rashes: no rashes Wound Narrative: stage II decub on the R buttock......turning Q 2H to offload and has a Mepilex to cover the area and Calmoseptine around that. Psych cooperative Assessment & Plan Assessment/Plan (1) Debility: (2) Subarachnoid hemorrhage: PLAN: Presented with this to the ED due to a leaking L MCA aneurysm. (3) Status post aneurysm repair: PLAN: There was an attempt to clip LMCA aneurysm but, it failed and the artery dissected. (4) Arterial ischemic stroke, MCA (middle cerebral artery), left, acute: PLAN: Due to dissection of the L MCA during attempt to clip aneurysm of the L MCA. (5) Dissection of cerebral artery: PLAN: L MCA causing an ischemic CVA (6) Status post craniotomy: (7) Acquired skull defect: (8) Cerebral edema: (9) Cognitive dysfunction due to stroke: (10) Raymond-inattention: (11) Dysphagia: (12) Global aphasia: (13) Acute blood loss anemia: (14) DVT (deep venous thrombosis): (15) Current use of medical terminologist anticoagulation: PLAN: For DVT (16) Hypertension: (17) Elevated blood sugar: (18) Hyponatremia: (19) Thrombocytosis: (20) Obesity (BMI 30-39.9): (21) Presence of externally removable percutaneous endoscopic gastrostomy (PEG) tube: PLAN: Plan 1. Continue therapy 2. Consider a trigger point injection into the trapezius if this persists after we try stretching and repositioning 3. Recheck an HH and a BMP in the AM Charges/Coding Visit Charges Inpatient E&M: 98347 Subs Hosp L2
[2022-06-10 19:37] VITALS: BP 121/76; PULSE 79; RESP 14; TEMP 36.3; O2SAT 98
[2022-06-10] MEDS: Atorvastatin Calcium 20 MG Tablet GT (22:05)
[2022-06-11] MEDS: Acetaminophen 325 MG Tablet 650 MG PO ×4 (05:05→23:47)
[2022-06-11 05:44] LABS: Hematocrit 37.3 % (40-54); Hemoglobin 12.3 g/dL (13.0-16.5)
[2022-06-11 06:07] LABS: Anion Gap 7 (5-15); BUN 20 mg/dL (7-18); BUN/Creat Ratio 25.4 RATIO (10-20); Calcium,Total 9.2 mg/dL (8.5-10.1); Chloride 101 mmol/L (98-107); Creatinine, Serum 0.79 mg/dL (0.70-1.30); EST Glomerular Filtration Rate 117 mL/min (>60); Est Glom Filt Rate - Afr Amer 142 mL/min (>60); Estimated Creatinine Clearance 114.41 ml/min; Glucose 102 mg/dL (74-106); Potassium 4.3 mmol/L (3.5-5.1); Sodium Level 138 mmol/L (136-145)
[2022-06-11 06:34] VITALS: O2SAT 97
[2022-06-11 07:49] VITALS: BP 109/75; PULSE 87; RESP 174; TEMP 37.1; O2SAT 97
[2022-06-11] MEDS: APIXABAN 5 MG TABLET 10 MG GT ×2 (08:57→21:20)
[2022-06-11] MEDS: Sodium Chloride 1 GM Tablet PO ×2 (08:57→21:21)
[2022-06-11] MEDS: Lisinopril 40 MG Tablet GT (08:57)
[2022-06-11] MEDS: Carvedilol 3.125 MG TABLET GT ×2 (08:57→18:26)
[2022-06-11] MEDS: Menthol/Lanolin/Calamine/Znox 113 GM Tube 1 APPLIC TOPICAL ×2 (09:10→21:23)
--- NOTE | 2022-06-11 13:48 | PCM.PROGNOTE ---
Subjective Subjective Afebrile VSS Maintaining appropriate oxygen saturation on RA Oral intake is good. Discussed with nursing - no problems that need addressed Reviewed the PT/OT/ST notes Medication list reviewed. All lab was personally reviewed. Hemoglobin is stable at 12.3 with a hematocrit of 37.3. Sodium is 138 today and the potassium is 4.3. BUN is stable at 20 with a creatinine of 0.79. Romeo has severe expressive aphasia > receptive aphasia. He answers everything I ask him with no or a little bit. He does not appear to be in any distress. He is not in respiratory distress. He is not restless and there is no facial grimacing when I examine him. Objective Data Objective Data Vital Signs: Vital Signs Temp Pulse Resp BP Pulse Ox O2 Del Method 98.7 F 87 174 H 109/75 97 Room Air 06/11/22 07:49 06/11/22 07:49 06/11/22 07:49 06/11/22 07:49 06/11/22 07:49 06/11/22 07:49 Oxygen Delivery Method Room Air Weight: 213 lb 2.992 oz Body Mass Index (BMI) 39.2 Intake & Output: Intake and Output for Last 24 Hours 06/09/22 06/10/22 06/11/22 23:59 23:59 23:59 Intake Total 1750 / 1750 1525 / 1625 755 / 755 Balance 1750 / 1750 1525 / 1625 755 / 755 Lab / Micro Data Result Diagrams: 06/11/22 05:19 06/11/22 05:19 Labs: Laboratory Results - last 24 hr 06/11/22 05:19: Hgb 12.3 L, Hct 37.3 L 06/11/22 05:19: Sodium 138, Potassium 4.3, Chloride 101, Carbon Dioxide 30.0, Anion Gap 7, BUN 20 H, Creatinine 0.79, Estim Creat Clear Calc 114.41, Est GFR (MDRD) Af Amer 142, Est GFR (MDRD) Non-Af 117, BUN/Creatinine Ratio 25.4 H, Glucose 102, Calcium 9.2 Physical Exam Const alert and no apparent distress General Appearance: cooperative Resp normal respiratory effort and clear to auscultation bilaterally Effort and Inspection: Negative for tachypneic or respiratory distress Cardio regular rate, regular rhythm and no gallops GI normal to inspection, nondistended, normoactive bowel sounds and soft to palpation Extremity General Extremity: Negative for edema Skin Rashes: no rashes Wound Narrative: stage II decub on the R buttock......turning Q 2H to offload and has a Mepilex to cover the area and Calmoseptine around that. Assessment & Plan Assessment/Plan (1) Debility: (2) Arterial ischemic stroke, MCA (middle cerebral artery), left, acute: PLAN: Due to dissection of the L MCA during attempt to clip aneurysm of the L MCA. (3) Status post craniotomy: (4) Acquired skull defect: (5) Cerebral edema: (6) Cognitive dysfunction due to stroke: (7) Raymond-inattention: (8) Dysphagia: (9) Global aphasia: (10) Acute blood loss anemia: PLAN: Stable (11) DVT (deep venous thrombosis): PLAN: On Eliquis (12) Current use of continuous churn buttermaker anticoagulation: PLAN: For DVT (13) Hyponatremia: PLAN: resolved (14) Obesity (BMI 30-39.9): (15) Presence of externally removable percutaneous endoscopic gastrostomy (PEG) tube: (16) Torticollis, acquired: PLAN: This is less today than yesterday. Continue passive stretching PLAN: Plan 1. Continue therapy 2. Receiving very little TF. BUN is increased. May need to add some regular water flushes. 3. I received a VM from his mother stating she changed her mind and she would like the antidepressant discontinued. Done. 4. Continue to monitor for any refusal of therapy, lack of motivation, frequent crying, loss of appetite and if any of these occur will revisit antidepressants with the pt and the family. Charges/Coding Visit Charges Inpatient E&M: 95296 Subs Hosp L2
[2022-06-11 20:55] VITALS: O2SAT 97
[2022-06-11] MEDS: Atorvastatin Calcium 20 MG Tablet GT (21:20)
[2022-06-11 22:00] VITALS: BP 114/77; PULSE 89; RESP 15; TEMP 37.1; O2SAT 96
[2022-06-12] MEDS: Acetaminophen 325 MG Tablet 650 MG PO ×4 (06:26→22:53)
[2022-06-12 07:28] VITALS: BP 107/68; PULSE 72; RESP 16; TEMP 36.1; O2SAT 100
[2022-06-12] MEDS: Carvedilol 3.125 MG TABLET GT ×2 (09:03→16:56)
[2022-06-12] MEDS: Menthol/Lanolin/Calamine/Znox 113 GM Tube 1 APPLIC TOPICAL ×2 (09:03→22:53)
[2022-06-12] MEDS: APIXABAN 5 MG TABLET PO ×2 (09:05→22:53)
[2022-06-12] MEDS: Sodium Chloride 1 GM Tablet PO ×2 (09:05→22:53)
[2022-06-12] MEDS: Lisinopril 40 MG Tablet GT (09:05)
--- NOTE | 2022-06-12 10:51 | PCM.PROGNOTE ---
Subjective Subjective Afebrile VSS Maintaining appropriate oxygen saturation on RA Oral intake - He took 1320 yesterday He is incontinent of urine Discussed with nursing - no problems that need addressed Reviewed the PT/OT/ST notes Medication list reviewed. Objective Data Objective Data Vital Signs: Vital Signs Temp Pulse Resp BP Pulse Ox O2 Del Method 97 F L 72 16 107/68 100 Room Air 06/12/22 07:28 06/12/22 07:28 06/12/22 07:28 06/12/22 07:28 06/12/22 07:28 06/12/22 07:28 Oxygen Delivery Method Room Air Weight: 209 lb 3.499 oz Body Mass Index (BMI) 39.2 Intake & Output: Intake and Output for Last 24 Hours 06/10/22 06/11/22 06/12/22 23:59 23:59 23:59 Intake Total 1525 / 1625 1935 / 1935 200 / 200 Balance 1525 / 1625 1935 / 1935 200 / 200 Lab / Micro Data Result Diagrams: 06/11/22 05:19 06/11/22 05:19
[2022-06-12 22:45] VITALS: BP 101/73; PULSE 86; RESP 18; TEMP 36.5; O2SAT 96
[2022-06-12] MEDS: Atorvastatin Calcium 20 MG Tablet GT (22:52)
[2022-06-12] MEDS: Senna/Docusate Sodium 1 Tablet 2 TABLET PO (22:53)
--- NOTE | 2022-06-13 04:04 | NURSING ---
Reviewed and agree with Atiya BAR, documentation and assessment charting.
[2022-06-13] MEDS: Acetaminophen 325 MG Tablet 650 MG PO ×3 (06:30→17:06)
[2022-06-13 07:50] VITALS: BP 147/66; PULSE 94; RESP 16; TEMP 36.9; O2SAT 97
[2022-06-13] MEDS: Senna/Docusate Sodium 1 Tablet 2 TABLET PO (08:15)
[2022-06-13] MEDS: Lisinopril 40 MG Tablet GT (08:15)
[2022-06-13] MEDS: Menthol/Lanolin/Calamine/Znox 113 GM Tube 1 APPLIC TOPICAL ×2 (08:16→20:32)
[2022-06-13] MEDS: Sodium Chloride 1 GM Tablet PO ×2 (08:16→20:32)
[2022-06-13] MEDS: Carvedilol 3.125 MG TABLET GT ×2 (08:16→17:06)
[2022-06-13] MEDS: APIXABAN 5 MG TABLET PO ×2 (08:16→20:32)
--- NOTE | 2022-06-13 15:01 | CASEMGMT ---
Social Work IDT met with patient, mother and family friend for Team meeting. Discussed patient's progress in PT/OT/ST/SN. Educated to [facility] insurance with NRD 06/14 and continued stay is not guaranteed with each review.? If pt is unable to return home at [place], goal is for pt to DC to [facility]. SW educated to private pay if insurance does not approve skilled stay. Mother expressed understanding. The goal remains ongoing therapy in [place], but IDT noting pt can have difficulty participating in all three hours/day of therapy. educated family to pt being apathetic and depressed. Pt agreed to some depression. requested to start pt on antidepressant, and educated to benefits of improved mood, i.e. increase in energy, increase in participation in therapy, etc. stated to get full effects of medication, it takes about 4-6 weeks of being on medication and Dr prefers to start meds in the beginning of pt's stay. Mother responded with hesitation and requested pt pursue holistic, natural approaches prior to starting new medications. Mother inquired to about natural supplement that promotes benefits to improve depression and it is sprinkled on pt's food each day. . hesitant about health supplement and discussed antidepressant further with the potential benefit to help increase energy and motivation. reviewed again the RU requirement for three hours of therapy and if unable to tolerate will need to pursue discharge. Mother expressed understanding and still requesting to pursue natural approaches, stating especially if the med will take 4-6 weeks to affect, she would like the pt to start with the supplement. educated to [facility] needing to approve supplement first, and if approved, it will be administered to pt. Mother expressed appreciation. SW to continue to follow for DC planning and support as needed. Will ReTeam weekly. Fabienne Peter, DARIEN PRODUCTION EDITOR
--- NOTE | 2022-06-13 19:19 | PN_ITS ---
Subjective Subjective Romeo was seen on team rounds today. His mother and [id number] were present in the room. All questions were answered to their satisfaction. Afebrile VSS Maintaining appropriate oxygen saturation on RA Oral intake is good. He is eating 75 to 100% of his meals but he is a total feed. He is able to use his left hand and the occupational therapist is encouraging nursing and his family to allow Romeo to attempt to feed himself. Discussed with nursing - no problems that need addressed Reviewed the PT/OT/ST notes - OT reports that Romeo did not want to participate in bathing today and he would not feed himself or even attempt with the left hand. He is off and on Apathetic which may be related to the L frontal lobe component of the stroke and also to depression. Medication list reviewed. Romeo admits to feeling a little depressed. His mother continues to refuse an antidepressant. I explained why it is important and that if he does not participate with therapy and does not progress he can not stay in the rehab unit. She takes a Life Factor Extract - It is composed of some Vitamins and peptides and supposedly will fix him right up. It says it promotes immune health. We sent it to pharmacy and they could find no literature about this product and they do not recommend using it. I do not have any objection but, I can not see that anything contained in this product is going to help depression. Romeo is embarrassed at being incontinent and needing help to clean himself. He seems kind of withdrawn. He denies ANGUIANO, CP, SOB, lightheadedness, nausea and abdominal pain. Objective Data Objective Data Vital Signs: Vital Signs Temp Pulse Resp BP Pulse Ox O2 Del Method 98.4 F 94 16 147/66 H 97 Room Air 06/13/22 07:50 06/13/22 07:50 06/13/22 07:50 06/13/22 07:50 06/13/22 07:50 06/13/22 07:50 Oxygen Delivery Method Room Air Weight: 207 lb 7.28 oz Body Mass Index (BMI) 39.2 Intake & Output: Intake and Output for Last 24 Hours 06/11/22 06/12/22 06/13/22 23:59 23:59 23:59 Intake Total 1934 2910 / 2910 1530 / 1530 Balance 1934 2910 / 2910 1530 / 1530 Lab / Micro Data Result Diagrams: 06/11/22 05:19 06/11/22 05:19 Physical Exam Const alert and no apparent distress Constitutional Narrative: he is sitting in the recliner at the bedside.....he slides down in the chair often and needs to be repostioned. General Appearance: cooperative HEENT HEENT Narrative: torticollis continues to improve. Eyes PERRL and EOMs intact bilaterally Eyes Narrative: no gaze preference Resp clear to auscultation bilaterally Resp Narrative: No cough. Not tachypneic. No labored breathing. Cardio regular rate, regular rhythm, no murmurs and no gallops GI normal to inspection, nondistended, normoactive bowel sounds, soft to palpation and non-tender GI Narrative: No guarding with palpation. The PEG site is free of erythema and there is no purulent discharge surrounding the tube. Extremity General Extremity: Negative for edema Skin Skin Narrative: the stage 2 decub on the R buttock is improving.....will continue the Mepilex. 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 Continue therapy 2. Continue to observe for lack of motivation/depression Charges/Coding Visit Charges Inpatient E&M: 58433 [facility] Hosp L1
[2022-06-13 19:48] VITALS: BP 102/71; PULSE 87; RESP 14; TEMP 36.8; O2SAT 98
[2022-06-13 20:00] VITALS: PULSE 87; RESP 14; O2SAT 98
[2022-06-13] MEDS: Atorvastatin Calcium 20 MG Tablet GT (20:32)
[2022-06-14] MEDS: Acetaminophen 325 MG Tablet 650 MG PO ×5 (00:52→20:44)
[2022-06-14 07:24] VITALS: BP 109/81; PULSE 77; RESP 16; TEMP 36.6; O2SAT 99
[2022-06-14] MEDS: Carvedilol 3.125 MG TABLET GT ×2 (08:42→17:23)
[2022-06-14] MEDS: Lisinopril 40 MG Tablet GT (08:42)
[2022-06-14] MEDS: Sodium Chloride 1 GM Tablet PO ×2 (08:42→20:44)
[2022-06-14] MEDS: APIXABAN 5 MG TABLET PO ×2 (08:42→20:44)
[2022-06-14] MEDS: Menthol/Lanolin/Calamine/Znox 113 GM Tube 1 APPLIC TOPICAL ×2 (08:45→20:45)
--- NOTE | 2022-06-14 09:44 | CASEMGMT ---
Addendum entered by Fabienne Peter 06/14/22 15:00: SW spoke with pt and updated him on NRD. Nurse confirmed pharmacy did not approve natural supplement. SW updated pt and inquired if he would like an antidepressant or not. SW broke down question and asked if pt would like mother to make that decision, pt replied yes. SW updated nursing. Original Note: Social Work Contacted mother to update on insurance approval with NRD 06/21. Mother appreciative. Fabienne Peter, DARIEN EDGER HAND
[2022-06-14 19:50] VITALS: BP 113/76; PULSE 88; RESP 14; TEMP 36.2; O2SAT 100
[2022-06-14] MEDS: Atorvastatin Calcium 20 MG Tablet GT (20:45)
[2022-06-15] MEDS: Acetaminophen 325 MG Tablet 650 MG PO ×4 (05:22→21:45)
[2022-06-15 07:25] VITALS: BP 110/74; PULSE 79; RESP 16; TEMP 36.7; O2SAT 98
[2022-06-15] MEDS: Carvedilol 3.125 MG TABLET GT ×2 (07:50→17:22)
[2022-06-15] MEDS: APIXABAN 5 MG TABLET PO ×2 (10:55→21:46)
[2022-06-15] MEDS: Lisinopril 40 MG Tablet GT (10:55)
[2022-06-15] MEDS: Sodium Chloride 1 GM Tablet PO ×2 (10:55→21:46)
[2022-06-15] MEDS: Menthol/Lanolin/Calamine/Znox 113 GM Tube 1 APPLIC TOPICAL ×2 (10:56→21:46)
[2022-06-15 19:00] VITALS: BP 105/74; PULSE 93; RESP 17; TEMP 37.1; O2SAT 97
[2022-06-15] MEDS: Senna/Docusate Sodium 1 Tablet 2 TABLET PO (21:45)
[2022-06-15] MEDS: Atorvastatin Calcium 20 MG Tablet GT (21:45)
[2022-06-16] MEDS: Carvedilol 3.125 MG TABLET GT ×2 (06:54→17:40)
[2022-06-16] MEDS: Acetaminophen 325 MG Tablet 650 MG PO ×4 (06:54→22:45)
[2022-06-16 07:41] VITALS: BP 124/68; PULSE 66; RESP 18; TEMP 36.8; O2SAT 97
[2022-06-16] MEDS: Sodium Chloride 1 GM Tablet PO (08:37)
[2022-06-16] MEDS: Menthol/Lanolin/Calamine/Znox 113 GM Tube 1 APPLIC TOPICAL ×2 (08:37→22:45)
[2022-06-16] MEDS: Lisinopril 40 MG Tablet GT (08:37)
[2022-06-16] MEDS: APIXABAN 5 MG TABLET PO (08:37)
--- NOTE | 2022-06-16 14:31 | NURSING ---
Nursing staff has offered to get patient up in recliner to visit with visitors several times today and patient has refused. Patient is comfortable in his bed and has been turned and repositioned by nursing staff today. Bed scale weight not working and weight not completed today.
[2022-06-16 21:01] VITALS: BP 101/72; PULSE 83; RESP 16; TEMP 36.2; O2SAT 98
[2022-06-16] MEDS: APIXABAN 5 MG TABLET GT (22:44)
[2022-06-16] MEDS: Senna/Docusate Sodium 1 Tablet 2 TABLET GT (22:44)
[2022-06-16] MEDS: Atorvastatin Calcium 20 MG Tablet GT (22:45)
[2022-06-17] MEDS: Acetaminophen 325 MG Tablet 650 MG PO ×3 (06:48→17:43)
[2022-06-17 07:42] VITALS: BP 114/77; PULSE 82; RESP 16; TEMP 37.2; O2SAT 97
[2022-06-17] MEDS: Lisinopril 40 MG Tablet GT (09:32)
[2022-06-17] MEDS: APIXABAN 5 MG TABLET GT ×2 (09:32→20:21)
[2022-06-17] MEDS: Sodium Chloride 1 GM Tablet PO ×2 (09:32→20:22)
[2022-06-17] MEDS: Carvedilol 3.125 MG TABLET GT ×2 (09:32→17:22)
[2022-06-17] MEDS: Menthol/Lanolin/Calamine/Znox 113 GM Tube 1 APPLIC TOPICAL ×2 (09:47→20:22)
--- NOTE | 2022-06-17 12:03 | PCM.PROGNOTE ---
Subjective Subjective Afebrile VSS Maintaining appropriate oxygen saturation on RA Oral intake is good Weight is down approximately 6 pounds since admission. Discussed with nursing - no problems that need addressed Reviewed the PT/OT/ST notes Medication list reviewed. Aphasic so not able to do ROS verbally. Objective Data Objective Data Vital Signs: Vital Signs Temp Pulse Resp BP Pulse Ox O2 Del Method 98.9 F 82 16 114/77 97 Room Air 06/17/22 07:42 06/17/22 07:42 06/17/22 07:42 06/17/22 07:42 06/17/22 07:42 06/17/22 07:42 Oxygen Delivery Method Room Air Weight: 207 lb 3.752 oz Body Mass Index (BMI) 39.2 Intake & Output: Intake and Output for Last 24 Hours 06/15/22 06/16/22 06/17/22 23:59 23:59 23:59 Intake Total 1805 / 1905 1760 / 1760 360 / 360 Output Total 700 / 1200 1950 / 2450 1300 / 1300 Balance 1105 / 705 -190 / -690 -940 / -940 Lab / Micro Data Result Diagrams: 06/11/22 05:19 06/11/22 05:19 Physical Exam Const alert and no apparent distress Constitutional Narrative: He is sitting in the recliner at the bedside.....he slides down in the chair often and needs to be repositioned. This is likely what caused the stage II decub on the R buttock. General Appearance: cooperative HEENT Mouth: dry mucous membranes Eyes PERRL and EOMs intact bilaterally Eyes Narrative: no gaze preference Neck Neck Narrative: Still with some torticollis........head is more often than not tilted to the R but, he is able to hold his head up straighter when asked to. Resp clear to auscultation bilaterally Resp Narrative: No cough. Not tachypneic. No labored breathing. Cardio regular rate, regular rhythm and no gallops Cardio Narrative: No ectopy GI normal to inspection, nondistended, normoactive bowel sounds, soft to palpation and non-tender GI Narrative: No guarding with palpation. The PEG site is free of erythema and there is no purulent discharge surrounding the tube. Having regular BM's but, remains incontinent of both urine and stool. Extremity Extremity Narrative: No grimacing with compression of the calf. Good cap refill. General Extremity: Negative for edema Skin Skin Narrative: the decub on the R buttock is shrinking. There is no increased warmth to touch and no DC. Continue with Calmoseptine and Mepilex. Rashes: no rashes Psych cooperative Psych Narrative: Affect is normal and not flat. He is no longer tearful. No agitation, not restless, smiling at times. Assessment & Plan Assessment/Plan (1) Debility: (2) Arterial ischemic stroke, MCA (middle cerebral artery), left, acute: (3) Status post craniotomy: (4) Acquired skull defect: (5) Cognitive dysfunction due to stroke: (6) Raymond-inattention: (7) Dysphagia: (8) Global aphasia: PLAN: Plan 1. Continue therapy 2. Continue the current medication regimen 3. Continue Calmoseptine in the perianal area and Mepilex to the stage II decub on the right buttock. Charges/Coding Visit Charges Inpatient E&M: 50661 Subs Hosp L2
[2022-06-17] MEDS: Metoclopramide 10 MG Tablet PO (17:37)
[2022-06-17 19:45] VITALS: BP 96/58; PULSE 77; RESP 18; TEMP 36.8; O2SAT 99
[2022-06-17] MEDS: Atorvastatin Calcium 20 MG Tablet GT (20:22)
[2022-06-18] MEDS: Acetaminophen 325 MG Tablet 650 MG PO ×3 (00:21→16:12)
[2022-06-18 07:11] VITALS: BP 109/77; PULSE 82; RESP 16; TEMP 36.8; O2SAT 97
[2022-06-18] MEDS: APIXABAN 5 MG TABLET GT ×2 (08:34→22:17)
[2022-06-18] MEDS: Carvedilol 3.125 MG TABLET GT ×2 (08:34→16:12)
[2022-06-18] MEDS: Sodium Chloride 1 GM Tablet PO ×2 (08:34→22:17)
[2022-06-18] MEDS: Lisinopril 40 MG Tablet GT (08:34)
[2022-06-18] MEDS: Menthol/Lanolin/Calamine/Znox 113 GM Tube 1 APPLIC TOPICAL ×2 (08:39→22:18)
[2022-06-18 21:45] VITALS: BP 139/68; PULSE 78; PULSE 81; RESP 17; RESP 18; TEMP 36.1; O2SAT 97; O2SAT 99
[2022-06-18] MEDS: Atorvastatin Calcium 20 MG Tablet GT (22:17)
[2022-06-19] MEDS: Acetaminophen 325 MG Tablet 650 MG PO ×5 (00:14→23:00)
--- NOTE | 2022-06-19 02:51 | NURSING ---
Reviewed and agree with Atiya BAR, documentation and assessment charting.
[2022-06-19] MEDS: Carvedilol 3.125 MG TABLET GT ×2 (08:05→17:59)
[2022-06-19 08:11] VITALS: BP 113/74; PULSE 76; RESP 18; TEMP 36.3; O2SAT 98
[2022-06-19] MEDS: Lisinopril 40 MG Tablet GT (10:01)
[2022-06-19] MEDS: Menthol/Lanolin/Calamine/Znox 113 GM Tube 1 APPLIC TOPICAL ×2 (10:01→23:01)
[2022-06-19] MEDS: Sodium Chloride 1 GM Tablet PO ×2 (10:01→23:00)
[2022-06-19] MEDS: APIXABAN 5 MG TABLET GT ×2 (10:01→23:00)
--- NOTE | 2022-06-19 17:14 | PCM.PROGNOTE ---
Subjective Subjective Afebrile VSS Maintaining appropriate oxygen saturation on RA Oral intake is good. He is eating 75 to 100% of his meals. Family wants to know if they can bring food in from home........He is not ready for that yet.......possibly after the next MBS. Still on thickened liquids and minced and moist foods. Still incontinent of both feces and urine. Can not tell when he has to go. Getting better with having the nurses clean him up......not as embarrassed. Discussed with nursing - no problems that need addressed Reviewed the PT/OT/ST notes Medication list reviewed. Romeo remains aphasic and I am not sure his yes and no answers are consistently what he truly means. He does not appear to be in any distress. No grimacing as if he is in pain. Eating well with no vomiting or apparent nausea. No cough and he is not tachypneic. Objective Data Objective Data Vital Signs: Vital Signs Temp Pulse Resp BP Pulse Ox O2 Del Method 97.3 F L 76 18 113/74 98 Room Air 06/19/22 08:11 06/19/22 08:11 06/19/22 08:11 06/19/22 08:11 06/19/22 08:11 06/19/22 08:11 Oxygen Delivery Method Room Air Weight: 205 lb 0.478 oz Body Mass Index (BMI) 39.2 Intake & Output: Intake and Output for Last 24 Hours 06/17/22 06/18/22 06/19/22 23:59 23:59 23:59 Intake Total 1620 / 1620 2600 / 2600 570 / 570 Output Total 1999 2450 / 2450 600 / 600 Balance -380 / -380 150 / 150 -30 / -30 Lab / Micro Data Result Diagrams: 06/11/22 05:19 06/11/22 05:19 Physical Exam Const alert and no apparent distress Constitutional Narrative: he is sitting in the recliner at the bedside.....he slides down in the chair often and needs to be repostioned. General Appearance: cooperative HEENT HEENT Narrative: torticollis continues to improve. Eyes PERRL and EOMs intact bilaterally Eyes Narrative: no gaze preference Resp clear to auscultation bilaterally Resp Narrative: No cough. Not tachypneic. No labored breathing. Cardio regular rate, regular rhythm, no murmurs and no gallops GI normal to inspection, nondistended, normoactive bowel sounds, soft to palpation and non-tender GI Narrative: No guarding with palpation. The PEG site is free of erythema and there is no purulent discharge surrounding the tube. Extremity General Extremity: Negative for edema Skin Skin Narrative: the stage 2 decub on the R buttock is improving.....will continue the Mepilex. 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 Continue therapy 2. Romeo is young and healthy prior to the stroke. He is doing well and progressing in therapy. Family is very happy with his progress and committed to Romeo going home with them when he has reached his plateau. Will discuss TCU with the SW as a possibility after he is cut from rehab if he is still needing additional therapy prior to going home. 3. No changes to the drug regimen at this time 4. Continue to monitor for any signs of depression. Charges/Coding Visit Charges Inpatient E&M: 43475 Subs Hosp L1
[2022-06-19 19:23] VITALS: BP 98/70; PULSE 75; RESP 17; TEMP 36.8; O2SAT 98
[2022-06-19 22:00] VITALS: PULSE 75; RESP 17; O2SAT 98
[2022-06-19] MEDS: Atorvastatin Calcium 20 MG Tablet GT (23:00)
[2022-06-20] MEDS: Acetaminophen 325 MG Tablet 650 MG PO ×3 (08:02→17:52)
[2022-06-20] MEDS: Carvedilol 3.125 MG TABLET GT ×2 (08:03→17:52)
[2022-06-20] MEDS: APIXABAN 5 MG TABLET GT ×2 (08:03→21:16)
[2022-06-20] MEDS: Lisinopril 40 MG Tablet GT (08:04)
[2022-06-20] MEDS: Sodium Chloride 1 GM Tablet PO ×2 (08:04→21:16)
[2022-06-20] MEDS: Menthol/Lanolin/Calamine/Znox 113 GM Tube 1 APPLIC TOPICAL ×2 (08:54→21:16)
[2022-06-20 09:06] VITALS: BP 118/68; PULSE 99; RESP 16; TEMP 36.6; O2SAT 98
--- NOTE | 2022-06-20 13:12 | CASEMGMT ---
Social Work IDT met with patient, mother, dtr then dtr via conference call for Team meeting. Discussed patient's progress in PT/OT/ST/SN. Educated to [facility] insurance with NRD 2/3 and continued stay is not guaranteed with each review. Pt is making progress and ST to complete MBS 2/3. DC plan remains transfer to SNF. Family requested referral to TCU as first choice then [facility] second. SW educated to precert for insurance and private pay costs for both facilities. Educated to TCU may not accept pt's insurance. Family expressed understanding. Will ReTeam weekly. SW to continue to follow. Fabienne Peter, SAIL CUTTER PANTOGRAPH OPERATOR
[2022-06-20 19:56] VITALS: BP 108/68; PULSE 95; RESP 16; TEMP 37.1; O2SAT 97
[2022-06-20] MEDS: Atorvastatin Calcium 20 MG Tablet GT (21:16)
--- NOTE | 2022-06-20 21:31 | PN_ITS ---
Subjective Subjective Romeo was seen on team rounds today. His mother and sister were present in the room and his other sister participated by phone. Afebrile VSS Maintaining appropriate oxygen saturation on RA Oral intake is good Remains incontinent. Discussed with nursing - no problems that need addressed Reviewed the PT/OT/ST notes - making excellent progress. Was able to put his shirt on by himself. Walking 18 ft on the wall rail 2 X's during every PT session. Standing more erect and better able to maintain his balance. Medication list reviewed. Denies pain. He is sleeping well and eating well. Never refuses therapy. Smiling much more than at admission. Follows the conversation when the different therapists are speaking. Making good eye contact. No vomiting. Having regular BM's. Denies lightheadedness. To have a MBS tomorrow. Objective Data Objective Data Vital Signs: Vital Signs Temp Pulse Resp BP Pulse Ox O2 Del Method 98.8 F 95 16 108/68 97 Room Air 06/20/22 19:56 06/20/22 19:56 06/20/22 19:56 06/20/22 19:56 06/20/22 19:56 06/20/22 19:56 Oxygen Delivery Method Room Air Weight: 205 lb 14.588 oz Body Mass Index (BMI) 39.2 Intake & Output: Intake and Output for Last 24 Hours 06/18/22 06/19/22 06/20/22 23:59 23:59 23:59 Intake Total 2600 / 2600 1070 / 1070 1380 / 1380 Output Total 2450 / 2450 1700 / 1700 900 / 900 Balance 150 / 150 -630 / -630 480 / 480 Lab / Micro Data Result Diagrams: 06/11/22 05:19 06/11/22 05:19 Physical Exam Const alert and no apparent distress Constitutional Narrative: he is sitting in the recliner at the bedside.....he slides down in the chair often and needs to be repostioned. General Appearance: cooperative HEENT HEENT Narrative: torticollis continues to improve. Eyes PERRL and EOMs intact bilaterally Eyes Narrative: no gaze preference Resp clear to auscultation bilaterally Resp Narrative: No cough. Not tachypneic. No labored breathing. Cardio regular rate, regular rhythm, no murmurs and no gallops GI normal to inspection, nondistended, normoactive bowel sounds, soft to palpation and non-tender GI Narrative: No guarding with palpation. The PEG site is free of erythema and there is no purulent discharge surrounding the tube. Extremity General Extremity: Negative for edema Skin Skin Narrative: the stage 2 decub on the R buttock is improving.....will continue the Mepilex. 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 Continue therapy 2. Romeo is making excellent progress. 3. His family wants him to be home when he reaches a plateau. They are very supportive and are agreeable to come in for family training prior to DC. 4. No sign of depression. Eating well, sleeping well, smiling a lot, motivated to do therapy and get better, attitude/affect is more upbeat now that he sees that he has gotten better and there is potential for good quality of life post stroke. 5. check lab on Friday. Charges/Coding Visit Charges Inpatient E&M: 08532 Subs Hosp L2
[2022-06-21] MEDS: Acetaminophen 325 MG Tablet 650 MG PO ×3 (06:05→17:40)
[2022-06-21 07:49] VITALS: BP 110/76; PULSE 77; RESP 16; TEMP 36.8; O2SAT 98
[2022-06-21] MEDS: Sodium Chloride 1 GM Tablet PO ×2 (09:42→21:31)
[2022-06-21] MEDS: Carvedilol 3.125 MG TABLET GT ×2 (09:42→17:40)
[2022-06-21] MEDS: Lisinopril 40 MG Tablet GT (09:42)
[2022-06-21] MEDS: APIXABAN 5 MG TABLET GT ×2 (09:43→21:32)
--- NOTE | 2022-06-21 09:45 | SP.MBSS_ITS ---
Modified Barium Swallow - Patient Information Study Date: 06/21/22 Study Time: 09:00 Direct Billable Minutes: 80 Total Minutes procedure & reportin Diagnosis: Dysphagia/CVA Referring Physician: Kristyn Wallace Reason for Referral: Referred for objective assessment of swallow function under fluoroscopy prior to liquid advancement d/t known history of silent aspiration w/ FEES Medical History: ANAND MARTÍNEZ, is a 36 M YO with no significant PMH and on no prescription medications who presented to the ED at [facility] on 05/22/22 With ANGUIANO and new onset R facial droop and R side weakness. the RUE weakness had started the preceding evening. Initial blood pressure was 147/96. Initial NIHSS score was 2 right facial droop and right upper extremity drift. Emergent noncontrast CT brain showed a left basal ganglia hematoma measuring 2cm X 1.4cm without mass-effect. CTA of the head and neck showed a 1.6 cm x 1.9 cm localized hyperdense mass in the left basal ganglion with decreased caliber of the left anterior cerebral artery. There was a broad necked unruptured L MCA aneurysm. The ER physician communicated with the cerebral hemorrhage hotline at [facility] and the pt was emergently transferred to [facility] by [facility]. He had been having intermittent ANGUIANO's for months prior to the bleed. There is no FH of cerebral aneurysms. He was immediately evaluated at [facility] by neurosurgery and was taken to surgery emergently. Clipping of the aneurysm was attempted but, failed. Noncontrast CT brain on 05/23/2022 showed hemorrhage in the fourth ventricle with some hydrocephalus and possible LF CVA. There was complete occlusion of the L MCA with distal reconstruction. Followup in 6H showed worsening edema and mass- effect with a midline shift of 7 mm. There was mild generalized herniation. On [address] head showed a midline shift that had increased up to 8.6 mm and the patient was taken to surgery for craniectomy. Postoperatively MRI of the brain showed a large left middle cerebral artery ischemic stroke. CT brain on 05/28/22 was stable with suspected mild petechial hemorrhage. Antiplatelet therapy with aspirin was started on 05/25/2022 per neurosurgery due to ischemic complication during an attempted aneurysm clipping. On 05/28/22 he passed a spontaneous breathing trial and was extubated. He had been intubated for 7 days. Significant lab at [facility] included a LDL of 178 and a HGBA1C of 5.5. He was started on a statin and SSI for stress hyperglycemia. He was started on Lisinopril to manage HTN. A transthoracic echocardiogram showed a normal left ventricular ejection fraction with no PFO or source of stroke identified. While on the ventilator he developed pneumonia and cultures were positive for Klebsiella Aerogenes. He was treated with 7 days of Cefepime. He had a Sheffield catheter which was inserted on 05/25/22 and removed on 05/29/22. PEG tube was inserted on 06/04/2022. PT underwent FEES while at [facility] and was placed on a pureed texture/mildly thick liquid diet w/ recommendation for MBS to be compelted prior to advancing liquid consistency d/t observation of silent aspiration w/ thin liquids during FEES. Current Diet Ordered: minced & moist/mildly thick Dentition: Natural Teeth Mental Status: Impaired - able to sufficiently follow commands for participation in MBS Respiratory Status: Oxygenating on Room Air - Penetration-Aspiration Scale Penetration-Aspiration Scale: OBJECTIVE ASSESSMENT OF SWALLOW FUNCTION (QUANTITATIVE ? PER TRIAL): PENETRATION / ASPIRATION SCALE (VILLEGAS): 1 = does not enter airway 2 = enters airway/above vocal folds/ejected 3 = enters airway/above vocal folds/not ejected 4 = enters airway/contacts vocal folds/ejected 5 = enters airway/contacts vocal folds/not ejected 6 = enters airway/below vocal folds/ejected 7 = enters airway/below vocal folds/not ejected despite effort 8 = enters airway/below vocal folds/no effort VIDEOFLOROSCOPIC SCALE SCORE (VILLEGAS): Grade I = aspiration of material that has penetrated into the laryngeal vestibule, intact cough reflex Grade II = aspiration < 10 % of the bolus, intact cough reflex Grade III = aspiration of < 10 % of the bolus, reduced cough reflex or aspiration of > 10 % of the bolus, intact cough reflex Grade IV = aspiration of > 10 % of the bolus, reduced cough reflex - Penetration-Aspiration Scale Score Thin Liquid via teaspoon Result: 1= does not enter airway Thin Liquid via teaspoon Trial 2 Result: 1= does not enter airway Thin Liquid via small single sip from cup Result: 2= enter airway/above vocal folds/ejected Thin Liquid via small single sip from cup Trial 2 Result: 4= enters airway/contacts vocal folds/ejected Thin Liquid via small single sip from cup Effortful swallow Result: 1= does not enter airway Thin Liquid via small single sip from cup Effortful swallow Trial 2 Result: 1= does not enter airway Thin Liquid via single sip from straw Result: 1= does not enter airway Pudding Result: 1= does not enter airway Cookie Result: 1= does not enter airway Thin Liquid via small single sip from cup Trial 3 Result: 1= does not enter airway Thin Liquid via sequential sips from cup Result: 1= does not enter airway - Oral Phase Labial Seal: Escape progressing to mid-chin Tongue Control During Bolus Hold: Cohesive bolus between tongue to palatal seal Bolus Preparation/Mastication: Timely and efficient chewing and mashing Bolus Transport/Lingual Motion: Slowed tongue motion Oral Residue: Trace residue lining oral structures - Pharyngeal Phase Initiation of Pharyngeal Swallow: Bolus head in pyriforms Soft Palate Elevation: No bolus between soft palate and pharyngeal wall Laryngeal Elevation: Comp. Superior move thyroid cart w/comp. apprx arytenoid cart-epig pet Anterior Hyoid Excursion: Partial anterior movement Epiglottic Movement: Complete inversion Laryngeal Vestibule Closure at Height of Swallow: Incomplete; narrow column of air/contrast in laryngeal vestibule Pharyngeal Stripping Wave: Present - complete Pharyngoesophageal Segment Opening: Complete distension and complete duration; no obstruction of flow Tongue Base Retraction: Trace column of contrast between tongue base & post. pharyngeal wall Pharyngeal Residue: Complete pharyngeal clearance - Esophageal Phase Esophageal Clearance: Complete clearance - Diagnosis/Impression Diagnosis: mild oropharyngeal dysphagia Impression: The oral phase is characterized by: -impaired labial seal w/ anterior liquid bolus leakage -timely mastication -somewhat slowed lingual motion for A-P bolus transportation -trace oral residue lining the oral tongue The pharyngeal/esophageal phase is characterized by: - delayed pharyngeal swallow onset timing w/ thin liquid boluses spilling to the pyriforms prior to swallow onset and subsequently resulting in laryngeal vestibule penetration from the pyriform sinuses into the laryngeal vestibule during the swallow inconsistently -reduced anterior hyoid movement -use of an effortful swallow was effective to improve swallow onset timing w/ the bolus head in the valleculae rather than pyriforms at swallow onset, effectively eliminating laryngeal vestibule penetration -adequate pharyngeal contraction w/ complete pharyngeal bolus clearance -the esophageal phase was unremarkable - Recommendations Comment: Soft & Bite Sized Textures/Thin Liquids Compensatory Strategies: No Straws, Sitting upright, Assist with verbal cues to use recommended strategies - EFFORTFUL SWALLLOW with liquids Supervision: 1:1 Close Supervision Recommend Repeat Modified Barium Swallow: No Need for Skilled Speech Therapy Services: Yes Comment: This patient requires continued skilled ST intervention to assess diet tolerance, use of compensatory strategies and instruct w/ oropharyngeal strengthening exercises (targeting labial/lingual strength and swallow onset timing). Education Completed: 1. Described result of evaluation., 2. Pt understands evaluation & agrees with goals and treatment plan. - Status Active ST Patient: Active - Contact Information [facility] Speech Therapy:: Raeann Lawson M.A., CCC-DOPE HEATER [address] [place] [address] x [phone] [email or web address]
[2022-06-21] MEDS: Menthol/Lanolin/Calamine/Znox 113 GM Tube 1 APPLIC TOPICAL ×2 (09:49→21:33)
[2022-06-21] MEDS: Atorvastatin Calcium 20 MG Tablet GT (21:32)
[2022-06-21] MEDS: Senna/Docusate Sodium 1 Tablet 2 TABLET GT (21:32)
[2022-06-21 21:35] VITALS: BP 112/76; PULSE 70; RESP 17; TEMP 36.9; O2SAT 95
[2022-06-22] MEDS: Acetaminophen 325 MG Tablet 650 MG PO ×5 (00:32→23:13)
[2022-06-22 06:52] LABS: Mean Corp Hgb Conc 32.5 g/dL (32-36); Mean Corpuscular Hgb 29.2 pg (27.0-32.0); Mean Corpuscular Volume 89.9 fL (80-94); Mean Platelet Vol. 9.3 fl (6.2-12.0); Platelet Count 206 K/mm3 (150-450); RBC Distribution Width CV 13.8 % (11.6-14.6); RBC Distribution Width SD 45.8 fl (35.1-43.9); Red Blood Count 4.45 M/mm3 (4.6-6.2); White Blood Count 6.2 K/mm3 (4.4-11.0)
[2022-06-22 07:24] LABS: Anion Gap 9 (5-15); BUN 20 mg/dL (7-18); BUN/Creat Ratio 28.4 RATIO (10-20); Calcium,Total 9.2 mg/dL (8.5-10.1); Chloride 102 mmol/L (98-107); EST Glomerular Filtration Rate 133 mL/min (>60); Est Glom Filt Rate - Afr Amer 161 mL/min (>60); Estimated Creatinine Clearance 129.12 ml/min; Glucose 96 mg/dL (74-106); Potassium 4.1 mmol/L (3.5-5.1); Sodium Level 138 mmol/L (136-145)
[2022-06-22 08:26] VITALS: BP 110/75; PULSE 76; RESP 16; TEMP 36.6; O2SAT 97
[2022-06-22] MEDS: Carvedilol 3.125 MG TABLET GT ×2 (08:48→17:20)
[2022-06-22] MEDS: Sodium Chloride 1 GM Tablet PO ×2 (08:48→23:14)
[2022-06-22] MEDS: APIXABAN 5 MG TABLET GT ×2 (08:49→23:14)
[2022-06-22] MEDS: Lisinopril 40 MG Tablet GT (08:50)
[2022-06-22] MEDS: Senna/Docusate Sodium 1 Tablet 2 TABLET GT (08:51)
[2022-06-22] MEDS: Menthol/Lanolin/Calamine/Znox 113 GM Tube 1 APPLIC TOPICAL (08:51)
[2022-06-22 20:29] VITALS: BP 101/72; PULSE 91; RESP 16; TEMP 36.8; O2SAT 97
[2022-06-22] MEDS: Atorvastatin Calcium 20 MG Tablet GT (23:14)
[2022-06-23] MEDS: Acetaminophen 325 MG Tablet 650 MG PO ×4 (05:57→23:11)
[2022-06-23 08:00] VITALS: BP 105/80; PULSE 68; RESP 15; TEMP 36.6; O2SAT 99
[2022-06-23] MEDS: Sodium Chloride 1 GM Tablet PO ×2 (08:09→21:24)
[2022-06-23] MEDS: Lisinopril 40 MG Tablet GT (08:09)
[2022-06-23] MEDS: Carvedilol 3.125 MG TABLET GT ×2 (08:09→17:42)
[2022-06-23] MEDS: Menthol/Lanolin/Calamine/Znox 113 GM Tube 1 APPLIC TOPICAL ×3 (08:10→21:24)
[2022-06-23] MEDS: APIXABAN 5 MG TABLET GT ×2 (08:11→21:23)
[2022-06-23 19:39] VITALS: BP 105/65; PULSE 95; RESP 16; TEMP 36.7; O2SAT 98
[2022-06-23] MEDS: Atorvastatin Calcium 20 MG Tablet GT (21:23)
[2022-06-24] MEDS: Acetaminophen 325 MG Tablet 650 MG PO ×3 (06:00→16:48)
[2022-06-24 07:43] VITALS: BP 98/68; PULSE 72; RESP 16; TEMP 36.8; O2SAT 97
[2022-06-24] MEDS: Lisinopril 40 MG Tablet GT (08:07)
[2022-06-24] MEDS: Sodium Chloride 1 GM Tablet PO ×2 (08:07→22:13)
[2022-06-24] MEDS: APIXABAN 5 MG TABLET GT ×2 (08:07→22:13)
[2022-06-24] MEDS: Carvedilol 3.125 MG TABLET GT ×2 (08:07→16:47)
[2022-06-24] MEDS: Menthol/Lanolin/Calamine/Znox 113 GM Tube 1 APPLIC TOPICAL ×2 (08:08→22:13)
--- NOTE | 2022-06-24 18:46 | PN_ITS ---
Subjective Subjective Afebrile VSS Maintaining appropriate oxygen saturation on RA Oral intake is [] Discussed with nursing - no problems that need addressed Reviewed the PT/OT/ST notes Medication list reviewed. Romeo has no complaints today and he does not look to be in any distress. Objective Data Objective Data Vital Signs: Vital Signs Temp Pulse Resp BP Pulse Ox O2 Del Method 98.2 F 72 16 98/68 97 Room Air 06/24/22 07:43 06/24/22 07:43 06/24/22 07:43 06/24/22 07:43 06/24/22 07:43 06/24/22 07:43 Oxygen Delivery Method Room Air Weight: 206 lb 9.17 oz Body Mass Index (BMI) 39.2 Intake & Output: Intake and Output for Last 24 Hours 06/22/22 06/23/22 06/24/22 23:59 23:59 23:59 Intake Total 1500 / 1500 1620 / 1620 1480 / 1480 Output Total 700 / 950 2200 / 2200 300 / 300 Balance 800 / 550 -580 / -580 1180 / 1180 Lab / Micro Data Result Diagrams: 07/16/22 05:18 07/16/22 05:18 Physical Exam Const alert and no apparent distress General Appearance: cooperative Resp clear to auscultation bilaterally Cardio regular rate, regular rhythm and no gallops GI normal to inspection, nondistended, normoactive bowel sounds, soft to palpation and non-tender Extremity General Extremity: Negative for edema Skin Rashes: no rashes Assessment & Plan Assessment/Plan (1) Debility: (2) Cerebral aneurysm: PLAN: L MCA - unruptured at presentation to [facility] ED. He also had a L basal ganglia hematoma at presentation to [facility] ED. (3) Cerebral aneurysm rupture: PLAN: t The rupture occurred during failed attempt to clip the aneurysm of the L MCA . (4) Status post aneurysm repair: PLAN: Failed attempt to clip the aneurysm. (5) Subarachnoid hemorrhage: (6) Dissection of cerebral artery: PLAN: This occurred during the procedure to clip the aneurysm. (7) Status post craniotomy: PLAN: On 05/24/22 for increasing cerebral edema with a 8.6 midline shift and generalized herniation. Post op an MRI showed a large L MCA ischemic stroke. (8) Arterial ischemic stroke, MCA (middle cerebral artery), left, acute: PLAN: Due to complete occlusion of the L MCA. There was distal reconstruction of the MCA. (9) Acquired skull defect: PLAN: Will follow up at for replacement of the bone flap. (10) Global aphasia: PLAN: He understands more than he can speak. Has a limited vocabulary but, has made progress with speech therapy and he will need to continue with ST going forward. 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 (16) Urinary incontinence: PLAN: Uses a condom cath at night to keep him dry. Recent UA negative for infection and has not had a urinary tract infection during his time on rehab. (17) DVT (deep venous thrombosis): PLAN: The clot was in the R brachial vein. Would repeat a venous US of the R arm in mid August and if the clot has resolved would DC Eliquis. I suspect he had a PICC at [facility] and this caused the DVT. (18) Current use of senior care anticoagulation: PLAN: He is on Eliquis currently for provoked DVT in the R brachial vein. (19) Hypertension: PLAN: Lisinopril was discontinued. He remains on Coreg 3.125 mg BID. BP on the day of DC is 118/82. May be able to DC the Coreg if the BP stays in this range post DC. PLAN: Plan 1. Continue therapy Charges/Coding Visit Charges Inpatient E&M: 52451 Subs Hosp L1
[2022-06-24 20:14] VITALS: BP 121/71; PULSE 92; RESP 16; TEMP 36.9; O2SAT 100
[2022-06-24] MEDS: Atorvastatin Calcium 20 MG Tablet GT (22:13)
[2022-06-25] MEDS: Acetaminophen 325 MG Tablet 650 MG PO ×4 (00:38→18:20)
[2022-06-25] MEDS: Sodium Chloride 1 GM Tablet PO ×2 (07:57→21:51)
[2022-06-25] MEDS: Carvedilol 3.125 MG TABLET GT ×2 (07:57→18:20)
[2022-06-25] MEDS: Senna/Docusate Sodium 1 Tablet 2 TABLET GT (07:57)
[2022-06-25] MEDS: APIXABAN 5 MG TABLET GT ×2 (07:57→21:51)
[2022-06-25] MEDS: Lisinopril 40 MG Tablet GT (07:57)
[2022-06-25] MEDS: Menthol/Lanolin/Calamine/Znox 113 GM Tube 1 APPLIC TOPICAL ×2 (08:06→21:51)
[2022-06-25 08:43] VITALS: BP 107/72; PULSE 79; RESP 16; TEMP 36.9; O2SAT 94
[2022-06-25] MEDS: Atorvastatin Calcium 20 MG Tablet GT (21:50)
[2022-06-25 22:00] VITALS: BP 138/75; PULSE 95; RESP 18; TEMP 36.6; O2SAT 96
[2022-06-26] MEDS: Acetaminophen 325 MG Tablet 650 MG PO ×5 (00:47→23:34)
[2022-06-26 07:27] VITALS: BP 103/70; PULSE 81; RESP 16; TEMP 36.9; O2SAT 96
[2022-06-26] MEDS: Carvedilol 3.125 MG TABLET GT ×2 (08:18→16:05)
[2022-06-26] MEDS: Senna/Docusate Sodium 1 Tablet 2 TABLET GT (08:18)
[2022-06-26] MEDS: Lisinopril 40 MG Tablet GT (08:19)
[2022-06-26] MEDS: APIXABAN 5 MG TABLET GT ×2 (08:19→20:34)
[2022-06-26] MEDS: Sodium Chloride 1 GM Tablet PO ×2 (08:19→20:34)
[2022-06-26] MEDS: Menthol/Lanolin/Calamine/Znox 113 GM Tube 1 APPLIC TOPICAL ×2 (08:25→20:44)
[2022-06-26] MEDS: Atorvastatin Calcium 20 MG Tablet GT (20:34)
[2022-06-26 20:35] VITALS: BP 103/71; PULSE 80; RESP 14; TEMP 36.6; O2SAT 99
[2022-06-27] MEDS: Acetaminophen 325 MG Tablet 650 MG PO ×4 (05:20→23:43)
[2022-06-27 07:39] VITALS: BP 113/77; PULSE 77; RESP 16; TEMP 36.2; O2SAT 98
[2022-06-27] MEDS: Carvedilol 3.125 MG TABLET GT ×2 (07:52→17:02)
[2022-06-27] MEDS: APIXABAN 5 MG TABLET GT ×2 (10:10→20:01)
[2022-06-27] MEDS: Sodium Chloride 1 GM Tablet PO ×2 (10:11→20:00)
[2022-06-27] MEDS: Senna/Docusate Sodium 1 Tablet 2 TABLET GT (10:11)
[2022-06-27] MEDS: Lisinopril 40 MG Tablet GT (10:11)
[2022-06-27] MEDS: Menthol/Lanolin/Calamine/Znox 113 GM Tube 1 APPLIC TOPICAL ×2 (13:06→20:01)
--- NOTE | 2022-06-27 13:41 | CASEMGMT ---
Social Work IDT met with patient, mother and sister for Team meeting. Discussed patient's progress in PT/OT/ST/SN. Educated to [employer] insurance with [employer]D 06/27 and continued stay is not guaranteed. If pt is denied, the plan is for TCU to submit precert. If denied, pt to transfer to [facility] private pay. SW educated to daily rate. Will ReTeam weekly. SW to continue to follow. Fabienne Peter, SENIOR TELECOMMUNICATIONS ENGINEER [employer]IEF
--- NOTE | 2022-06-27 19:37 | PCM.PROGNOTE ---
Subjective Subjective Romeo was seen on team rounds today. His mother and sister were present in the room. Afebrile VSS Maintaining appropriate oxygen saturation on RA Oral intake is good and Romeo is feeding himself. Still incontinent of both urine and stool. Discussed with nursing - no problems that need addressed Reviewed the PT/OT/ST notes -Romeo was able to stand for 7 minutes without losing his balance today and while doing a puzzle with his left hand. He is now ambulating at the wall rail with no wheelchair follow and has better exercise tolerance. Medication list reviewed. Review of systems is abbreviated due to severe expressive aphasia but patient understands what I am saying to him and he denies chest pain, shortness of breath, cough, abdominal pain and burning with urination. Objective Data Objective Data Vital Signs: Vital Signs Temp Pulse Resp BP Pulse Ox O2 Del Method 97.2 F L 77 16 113/77 98 Room Air 06/27/22 07:39 06/27/22 07:39 06/27/22 07:39 06/27/22 07:39 06/27/22 07:39 06/27/22 07:39 Oxygen Delivery Method Room Air Weight: 206 lb 5.643 oz Body Mass Index (BMI) 39.2 Intake & Output: Intake and Output for Last 24 Hours 06/25/22 06/26/22 06/27/22 23:59 23:59 23:59 Intake Total 1740 / 1740 2140 / 2140 1580 / 1580 Output Total 300 / 300 1200 / 1200 300 / 300 Balance 1440 / 1440 940 / 940 1280 / 1280 Lab / Micro Data Result Diagrams: 06/22/22 06:20 06/22/22 06:20 Physical Exam Const alert and no apparent distress General Appearance: cooperative Resp clear to auscultation bilaterally Resp Narrative: No cough. Not tachypneic. No labored breathing. Cardio regular rate, regular rhythm, no murmurs and no gallops GI normal to inspection, nondistended, normoactive bowel sounds, soft to palpation and non-tender GI Narrative: No guarding with palpation. The PEG site is free of erythema and there is no purulent discharge surrounding the tube. Extremity General Extremity: Negative for edema Skin Rashes: no rashes Wound Narrative: The craniotomy incision is intact with no lorenza-incisional erythema and no discharge. Cerebral edema has decreased significantly since admission. There is some dried blood crusts over the incision which will fall off on their own. Neuro Neuro Narrative: Vocabulary is increasing. When given printed words and asked to point to the picture he is doing so >50% of the time. Strength is improving and he is ambulating at the wall rail with no wheelchair follow and is able to do it a few times with each physical therapy session. Less right side neglect. Psych Psych Narrative: Affect is good and he is smiling often and communicating with staff regularly. Assessment & Plan Assessment/Plan (1) Debility: (2) Arterial ischemic stroke, MCA (middle cerebral artery), left, acute: (3) Status post craniotomy: (4) Acquired skull defect: (5) Cognitive dysfunction due to stroke: (6) Raymond-inattention: (7) Dysphagia: (8) Global aphasia: PLAN: Plan 1. Continue therapy. Romeo is making great progress and is working very hard in therapy. 2. Recheck a BMP in the a.m. 3. Blood pressure is adequate but is a little on the low side at times. Will decrease the lisinopril to 30 mg daily from 40 mg daily. Continue Coreg 3.125 mg twice daily. Charges/Coding Visit Charges Inpatient E&M: 72555 Subs Hosp L2
[2022-06-27 19:55] VITALS: BP 103/68; PULSE 68; RESP 18; TEMP 36.7; O2SAT 97
[2022-06-27] MEDS: Atorvastatin Calcium 20 MG Tablet GT (20:00)
[2022-06-28] MEDS: Acetaminophen 325 MG Tablet 650 MG PO ×4 (05:20→23:26)
[2022-06-28 05:57] LABS: Hematocrit 43.6 % (40-54); Hemoglobin 13.7 g/dL (13.0-16.5)
[2022-06-28 06:29] LABS: Anion Gap 6 (5-15); BUN 18 mg/dL (7-18); BUN/Creat Ratio 21.3 RATIO (10-20); Calcium,Total 9.5 mg/dL (8.5-10.1); Chloride 103 mmol/L (98-107); Creatinine, Serum 0.85 mg/dL (0.70-1.30); EST Glomerular Filtration Rate 107 mL/min (>60); Est Glom Filt Rate - Afr Amer 130 mL/min (>60); Estimated Creatinine Clearance 106.33 ml/min; Glucose 104 mg/dL (74-106); Potassium 4.5 mmol/L (3.5-5.1); Sodium Level 139 mmol/L (136-145)
[2022-06-28 07:22] VITALS: BP 108/73; PULSE 77; RESP 16; TEMP 36.8; O2SAT 97
[2022-06-28] MEDS: APIXABAN 5 MG TABLET GT ×2 (10:26→22:24)
[2022-06-28] MEDS: Carvedilol 3.125 MG TABLET GT ×2 (10:26→17:53)
[2022-06-28] MEDS: Sodium Chloride 1 GM Tablet PO ×2 (10:26→22:24)
[2022-06-28] MEDS: Lisinopril 10 MG Tablet 30 MG GT (10:27)
[2022-06-28] MEDS: Menthol/Lanolin/Calamine/Znox 113 GM Tube 1 APPLIC TOPICAL ×2 (12:53→21:00)
[2022-06-28 19:37] VITALS: BP 118/70; PULSE 80; RESP 17; TEMP 36.4; O2SAT 97
[2022-06-28 20:10] VITALS: O2SAT 97
[2022-06-28] MEDS: Atorvastatin Calcium 20 MG Tablet GT (22:24)
[2022-06-29] MEDS: Acetaminophen 325 MG Tablet 650 MG PO ×4 (06:06→23:07)
[2022-06-29 07:40] VITALS: BP 103/71; PULSE 64; RESP 14; TEMP 36.8; O2SAT 98
[2022-06-29] MEDS: Carvedilol 3.125 MG TABLET GT ×2 (08:18→17:41)
[2022-06-29] MEDS: Senna/Docusate Sodium 1 Tablet 2 TABLET GT (08:18)
[2022-06-29] MEDS: Lisinopril 10 MG Tablet 30 MG GT (08:18)
[2022-06-29] MEDS: Sodium Chloride 1 GM Tablet PO ×2 (08:19→21:07)
[2022-06-29] MEDS: APIXABAN 5 MG TABLET GT ×2 (08:19→21:07)
[2022-06-29] MEDS: Menthol/Lanolin/Calamine/Znox 113 GM Tube 1 APPLIC TOPICAL ×2 (08:20→21:07)
[2022-06-29 21:00] VITALS: BP 114/78; PULSE 82; RESP 16; TEMP 36.4; O2SAT 97
[2022-06-29] MEDS: Atorvastatin Calcium 20 MG Tablet GT (21:07)
[2022-06-30] MEDS: Acetaminophen 325 MG Tablet 650 MG PO ×4 (06:12→23:27)
[2022-06-30 07:05] VITALS: BP 118/77; PULSE 74; RESP 14; TEMP 36.6; O2SAT 97
[2022-06-30] MEDS: Carvedilol 3.125 MG TABLET GT ×2 (09:34→17:16)
[2022-06-30] MEDS: APIXABAN 5 MG TABLET GT ×2 (09:35→20:45)
[2022-06-30] MEDS: Menthol/Lanolin/Calamine/Znox 113 GM Tube 1 APPLIC TOPICAL ×2 (09:35→20:45)
[2022-06-30] MEDS: Sodium Chloride 1 GM Tablet PO ×2 (09:35→20:45)
[2022-06-30] MEDS: Lisinopril 10 MG Tablet 30 MG GT (09:35)
[2022-06-30] MEDS: Senna/Docusate Sodium 1 Tablet 2 TABLET GT (09:36)
[2022-06-30] MEDS: Tobram/Dexam 2.5ML OPTH.BTL 1 DRP RIGHT EYE ×3 (14:50→20:46)
--- NOTE | 2022-06-30 17:40 | NURSING ---
pt stated his eye was hurting and right eye noted to be red slightly swollen, dr was notified.
[2022-06-30 20:25] VITALS: BP 102/77; PULSE 78; RESP 18; TEMP 36.8; O2SAT 97
[2022-06-30] MEDS: Atorvastatin Calcium 20 MG Tablet GT (20:45)
[2022-07-01] MEDS: Acetaminophen 325 MG Tablet 650 MG PO ×4 (06:16→23:18)
[2022-07-01] MEDS: Tobram/Dexam 2.5ML OPTH.BTL 1 DRP RIGHT EYE ×5 (06:16→22:09)
[2022-07-01] MEDS: Sodium Chloride 1 GM Tablet PO ×2 (09:58→22:09)
[2022-07-01] MEDS: APIXABAN 5 MG TABLET GT ×2 (09:58→22:09)
[2022-07-01] MEDS: Carvedilol 3.125 MG TABLET GT ×2 (09:58→19:06)
[2022-07-01] MEDS: Lisinopril 10 MG Tablet 30 MG GT (09:59)
[2022-07-01 10:00] VITALS: BP 110/81; PULSE 78; RESP 16; TEMP 36.7; O2SAT 96
[2022-07-01] MEDS: Menthol/Lanolin/Calamine/Znox 113 GM Tube 1 APPLIC TOPICAL ×2 (10:03→22:09)
--- NOTE | 2022-07-01 16:12 | PCM.PROGNOTE ---
Subjective Subjective Afebrile VSS Maintaining appropriate oxygen saturation on RA Oral intake is good Remains incontinent of both urine and stool and has no perception of when he has to go. Discussed with nursing - no problems that need addressed Reviewed the PT/OT/ST notes - Today I observed him ambulating in the norton with a hemiwalker and asist of 1. PT moves the R foot forward but, Romeo was able to move the hemiwalker and his left foot forward without assist. On the first trial he needed voice cues to move the hemiwalker and his left foot forward but on the second trial he received no voice cues and he was able to move the walker and his left foot with no cues. Still not able to follow simple commands consistently. Does not use the call light. Medication list reviewed. No complaints today. Vocabulary is still limited and he mostly says A little bit. He does not seem to be in any distress. He is not tachypneic and has no tachycardia. He is eating well and feeding himself. He is sleeping well at night. He never refuses therapy. He smiles a lot. Objective Data Objective Data Vital Signs: Vital Signs Temp Pulse Resp BP Pulse Ox O2 Del Method 98.0 F 78 16 110/81 H 96 Room Air 07/01/22 10:00 07/01/22 10:00 07/01/22 10:07/01/22 10:00 07/01/22 10:00 06/30/22 20:25 Oxygen Delivery Method Room Air Weight: 209 lb 3.499 oz Body Mass Index (BMI) 39.2 Intake & Output: Intake and Output for Last 24 Hours 06/29/22 06/30/22 07/01/22 23:59 23:59 23:59 Intake Total 1680 / 1680 750 / 750 780 / 780 Output Total 2650 / 2650 850 / 850 600 / 600 Balance -970 / -970 -100 / -100 180 / 180 Lab / Micro Data Result Diagrams: 06/28/22 05:43 06/28/22 05:43 Micro: Microbiology 07/01/22 06:15 Other - Eye Gram Stain - Final Physical Exam Const alert and no apparent distress General Appearance: cooperative Resp clear to auscultation bilaterally Resp Narrative: No cough. Not tachypneic. No labored breathing. Cardio regular rate, regular rhythm, no murmurs and no gallops Cardio Narrative: No ectopy GI normal to inspection, nondistended, normoactive bowel sounds, soft to palpation and non-tender GI Narrative: No guarding with palpation. The PEG site is free of erythema and there is no purulent discharge surrounding the tube. Extremity Extremity Narrative: No grimacing with compression of the calf. Good cap refill. General Extremity: Negative for edema Skin Rashes: no rashes Assessment & Plan Assessment/Plan (1) Debility: (2) Arterial ischemic stroke, MCA (middle cerebral artery), left, acute: (3) Status post craniotomy: (4) Acquired skull defect: (5) Cognitive dysfunction due to stroke: (6) Raymond-inattention: (7) Dysphagia: PLAN: Much improved. We have not been using the PEG. (8) Global aphasia: PLAN: Plan 1. Continue therapy. He is making progress and today was standing tall and walking in the norton, not on the wall rail with a hemiwalker and assist of 1. the second walk he did not even require voice cuing to move the left foot forward and the hemiwalker forward. 2. Lisinopril was decreased to 30 mg daily last Friday and his blood pressure remains well controlled. His family is alarmed when the systolic blood pressure is less than 110 but Romeo has no lightheadedness and is functioning well. May be able to decrease to 20 mg daily if blood pressures remain where they are for the remainder of the week. Charges/Coding Visit Charges Inpatient E&M: 27107 Subs Hosp L2
[2022-07-01 21:00] VITALS: BP 121/80; PULSE 72; RESP 16; TEMP 36.1; O2SAT 98
[2022-07-01] MEDS: Atorvastatin Calcium 20 MG Tablet GT (22:08)
--- NOTE | 2022-07-02 04:06 | NURSING ---
Reviewed and agree with Atiya BAR, documentation and assessment charting.
[2022-07-02] MEDS: Tobram/Dexam 2.5ML OPTH.BTL 1 DRP RIGHT EYE ×5 (06:51→20:57)
[2022-07-02] MEDS: Acetaminophen 325 MG Tablet 650 MG PO ×4 (06:52→23:29)
[2022-07-02] MEDS: Carvedilol 3.125 MG TABLET GT ×2 (08:05→16:56)
[2022-07-02 10:00] VITALS: BP 99/55; PULSE 81; RESP 15; TEMP 36.9; O2SAT 97
[2022-07-02] MEDS: Lisinopril 10 MG Tablet 30 MG GT (10:00)
[2022-07-02] MEDS: Sodium Chloride 1 GM Tablet PO ×2 (10:01→20:57)
[2022-07-02] MEDS: Senna/Docusate Sodium 1 Tablet 2 TABLET GT (10:01)
[2022-07-02] MEDS: Menthol/Lanolin/Calamine/Znox 113 GM Tube 1 APPLIC TOPICAL ×2 (10:09→20:58)
[2022-07-02] MEDS: APIXABAN 5 MG TABLET GT ×2 (10:09→20:57)
--- NOTE | 2022-07-02 11:58 | PCM.PN.BLA ---
Progress Note Afebrile VSS - BP is 99/55 this AM. Maintaining appropriate oxygen saturation on RA Oral intake is good Discussed with nursing - no problems that need addressed Reviewed the PT/OT/ST notes Medication list reviewed. Culture of discharge from the right eye is growing 1+ gram-positive cocci, final report pending. Continue TobraDex. Romeo denies painful right eye, itchy right eye, change in vision. He denies pain. Physical Exam Const alert Constitutional Narrative: Sitting in the recliner at the bedside dressed and appears in no acute distress. He is smiling and responds to me quickly when I ask him a question. HEENT HEENT Narrative: Conjunctiva on the right is clear now with no injection. There is no discharge from the eye and there is no mattering of the eyelids. This is day 3 of TobraDex. Resp clear to auscultation bilaterally Cardio Rate: regular rate Rhythm: regular rhythm GI normal to inspection, nondistended, normoactive bowel sounds, soft to palpation and non-tender GI Narrative: No guarding with palpation Extremity no calf tenderness and no pedal edema Assessment & Plan Assessment/Plan (1) Debility: (2) Arterial ischemic stroke, MCA (middle cerebral artery), left, acute: (3) Status post craniotomy: (4) Acquired skull defect: (5) Cognitive dysfunction due to stroke: (6) Raymond-inattention: (7) Dysphagia: (8) Global aphasia: (9) Conjunctivitis: (10) Hypertension: PLAN: Plan 1. Continue therapy 2. Continue TobraDex until final culture is available. 3. Decrease lisinopril to 20 mg daily Visit Charges Inpatient E&M: 30066 Subs Hosp L1
[2022-07-02 20:29] VITALS: BP 105/68; PULSE 78; RESP 14; TEMP 37.2; O2SAT 97
[2022-07-02 20:50] VITALS: PULSE 78; RESP 14
[2022-07-02] MEDS: Atorvastatin Calcium 20 MG Tablet GT (20:57)
[2022-07-03] MEDS: Tobram/Dexam 2.5ML OPTH.BTL 1 DRP RIGHT EYE ×5 (05:36→20:39)
[2022-07-03] MEDS: Acetaminophen 325 MG Tablet 650 MG PO ×4 (05:37→23:14)
[2022-07-03] MEDS: Sodium Chloride 1 GM Tablet PO ×2 (07:58→20:38)
[2022-07-03] MEDS: Carvedilol 3.125 MG TABLET GT ×2 (07:59→17:30)
[2022-07-03] MEDS: Menthol/Lanolin/Calamine/Znox 113 GM Tube 1 APPLIC TOPICAL ×2 (07:59→20:40)
[2022-07-03] MEDS: APIXABAN 5 MG TABLET GT ×2 (07:59→20:38)
[2022-07-03] MEDS: Lisinopril 20 MG Tablet GT (08:00)
[2022-07-03 09:13] VITALS: BP 104/72; PULSE 68; RESP 16; TEMP 36.4; O2SAT 98
[2022-07-03 19:39] VITALS: BP 96/66; PULSE 80; RESP 16; TEMP 37; O2SAT 100
[2022-07-03] MEDS: Atorvastatin Calcium 20 MG Tablet GT (20:38)
[2022-07-03] MEDS: Senna/Docusate Sodium 1 Tablet 2 TABLET GT (20:39)
[2022-07-04] MEDS: Tobram/Dexam 2.5ML OPTH.BTL 1 DRP RIGHT EYE ×5 (05:58→22:09)
[2022-07-04] MEDS: Acetaminophen 325 MG Tablet 650 MG PO ×4 (06:00→23:03)
[2022-07-04 07:34] VITALS: BP 105/73; PULSE 70; RESP 15; TEMP 36.4; O2SAT 98
[2022-07-04] MEDS: APIXABAN 5 MG TABLET GT (08:49)
[2022-07-04] MEDS: Lisinopril 20 MG Tablet GT (08:49)
[2022-07-04] MEDS: Carvedilol 3.125 MG TABLET GT (08:49)
[2022-07-04] MEDS: Sodium Chloride 1 GM Tablet PO ×2 (08:49→22:10)
[2022-07-04] MEDS: Menthol/Lanolin/Calamine/Znox 113 GM Tube 1 APPLIC TOPICAL ×2 (09:17→22:13)
--- NOTE | 2022-07-04 12:57 | CASEMGMT ---
Social Work IDT met with patient and family for Team meeting. Discussed patient's progress in PT/OT/ST/SN. Educated to [place] insurance with NRD 07/04 and continued stay is not guaranteed with each review. Reviewed DC plans as family is expressing more interest in taking pt home. Sister stated she quit her job to become pt's primary caregiver. Family would like pt to DC home if insurance does not cover continued therapy. Pt continues to progress with intensive therapy. Once insurance issues DC, submit precert for TCU, if approved, pt to transfer to TCU. If denied, family will take pt home vs paying privately at [facility]. Offered to begin shared care with sister. Sister can begin 07/10. Answered sister's questions. SW to coordinate hospital bed, HHC vs OP at DC. Will ReTeam weekly. SW to continue to follow for DC planning. DARIEN HillW
--- NOTE | 2022-07-04 15:24 | PCM.PROGNOTE ---
Subjective Subjective Romeo was seen on team rounds today. His mother and 2 sisters were present in the room for rounds. All questions were answered. Afebrile VSS Maintaining appropriate oxygen saturation on RA Oral intake is good Discussed with nursing - no problems that need addressed Reviewed the PT/OT/ST notes Medication list reviewed. Objective Data Objective Data Vital Signs: Vital Signs Temp Pulse Resp BP Pulse Ox O2 Del Method 97.6 F L 70 15 105/73 98 Room Air 07/04/22 07:34 07/04/22 07:34 07/04/22 07:34 07/04/22 07:34 07/04/22 07:34 07/04/22 07:34 Oxygen Delivery Method Room Air Weight: 206 lb 12.697 oz Body Mass Index (BMI) 39.2 Intake & Output: Intake and Output for Last 24 Hours 07/02/22 07/03/22 07/04/22 23:59 23:59 23:59 Intake Total 1520 / 1520 1870 / 1870 1020 / 1020 Output Total 1400 / 1400 1250 / 1250 200 / 200 Balance 120 / 120 620 / 620 820 / 820 Lab / Micro Data Result Diagrams: 06/28/22 05:43 06/28/22 05:43 Micro: Microbiology 07/01/22 06:15 Other - Eye Gram Stain - Final 07/01/22 06:15 Other - Eye Eye Culture - Final Staphylococcus epidermidis#2 Staphylococcus epidermidis Physical Exam Const alert and no apparent distress General Appearance: cooperative HEENT HEENT Narrative: No conjunctival injection, no discharge from the right eye and no mattering of the eyelashes. Conjunctivitis has resolved. Eyes PERRL and EOMs intact bilaterally Eyes Narrative: no gaze preference Resp clear to auscultation bilaterally Resp Narrative: No cough. Not tachypneic. No labored breathing. Cardio regular rate, regular rhythm, no murmurs and no gallops Cardio Narrative: No ectopy GI normal to inspection, nondistended, normoactive bowel sounds, soft to palpation and non-tender GI Narrative: No guarding with palpation Extremity no calf tenderness and no pedal edema Extremity Narrative: No grimacing with compression of the calf. Good cap refill. Skin Rashes: no rashes Wound Narrative: The craniotomy incision is intact with no lorenza-incisional erythema and no discharge. Cerebral edema has decreased significantly since admission. There is some dried blood crusts over the incision which will fall off on their own. Psych cooperative Psych Narrative: Affect is good and he is smiling often and communicating with staff regularly. 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 Continue therapy, he is making progress 2. Get him up in the chair with meals - he prefers to be in bed. Not initiating activity. He was able to have a BM on the toilet once but, he does not notify nursing when he has to go. Will have nursing put him on the toilet twice a day.......in the morning and after supper to try and have a BM. 3. Family wants to take him home if he insurance will not pay for TCU and they are going to start family training. His sister has quit her job to take care of Romeo. 4. Check a BMP on Friday. If the BP is still less than 120 on Friday will decrease the Lisinopril to 10 mg daily. 5. DC the Tobradex after the last dose tomorrow. Conjunctivitis has resolved. Charges/Coding Visit Charges Inpatient E&M: 83291 Subs Hosp L2
[2022-07-04] MEDS: Carvedilol 3.125 MG TABLET PO (17:24)
[2022-07-04 19:20] VITALS: BP 104/67; PULSE 81; RESP 16; TEMP 37; O2SAT 96
[2022-07-04 22:00] VITALS: RESP 16; O2SAT 98
[2022-07-04] MEDS: Senna/Docusate Sodium 1 Tablet 2 TABLET PO (22:11)
[2022-07-04] MEDS: APIXABAN 5 MG TABLET PO (22:12)
[2022-07-04] MEDS: Atorvastatin Calcium 20 MG Tablet PO (22:13)
[2022-07-05] MEDS: Acetaminophen 325 MG Tablet 650 MG PO ×3 (06:52→17:17)
[2022-07-05] MEDS: Tobram/Dexam 2.5ML OPTH.BTL 1 DRP RIGHT EYE ×5 (06:52→21:12)
[2022-07-05 07:41] VITALS: BP 114/78; PULSE 85; RESP 16; TEMP 36.2; O2SAT 97
[2022-07-05] MEDS: Menthol/Lanolin/Calamine/Znox 113 GM Tube 1 APPLIC TOPICAL ×2 (08:02→21:11)
[2022-07-05] MEDS: Lisinopril 20 MG Tablet PO (08:02)
[2022-07-05] MEDS: APIXABAN 5 MG TABLET PO ×2 (08:03→21:11)
[2022-07-05] MEDS: Carvedilol 3.125 MG TABLET PO ×2 (08:03→17:14)
[2022-07-05] MEDS: Sodium Chloride 1 GM Tablet PO ×2 (08:03→21:11)
--- NOTE | 2022-07-05 08:27 | CASEMGMT ---
Social Work Left voicemail for sister to update on insurance approval with [employer]D 07/11. SW updated [facility] that the plan is pt for to DC home vs TCU and can be removed from waiting list. Fabienne Peter, FINISHER SCREWDOWN METER MAKER
[2022-07-05 20:30] VITALS: BP 110/76; PULSE 77; RESP 15; TEMP 36.4; O2SAT 97
[2022-07-05] MEDS: Atorvastatin Calcium 20 MG Tablet PO (21:11)
[2022-07-06] MEDS: Acetaminophen 325 MG Tablet 650 MG PO ×4 (00:06→18:06)
[2022-07-06] MEDS: Lisinopril 20 MG Tablet PO (08:04)
[2022-07-06] MEDS: Carvedilol 3.125 MG TABLET PO ×2 (08:04→18:06)
[2022-07-06] MEDS: APIXABAN 5 MG TABLET PO ×2 (08:04→21:04)
[2022-07-06] MEDS: Sodium Chloride 1 GM Tablet PO ×2 (08:04→21:04)
[2022-07-06] MEDS: Menthol/Lanolin/Calamine/Znox 113 GM Tube 1 APPLIC TOPICAL ×2 (08:05→21:05)
[2022-07-06 08:17] VITALS: BP 111/76; PULSE 68; RESP 17; TEMP 36.2; O2SAT 98
[2022-07-06 20:13] VITALS: BP 97/66; PULSE 82; RESP 18; TEMP 37.1; O2SAT 98
[2022-07-06] MEDS: Atorvastatin Calcium 20 MG Tablet PO (21:03)
[2022-07-07] MEDS: Acetaminophen 325 MG Tablet 650 MG PO ×5 (00:03→23:53)
[2022-07-07 07:27] VITALS: BP 111/80; PULSE 74; RESP 16; TEMP 36.2; O2SAT 97
[2022-07-07] MEDS: Carvedilol 3.125 MG TABLET PO ×2 (08:27→18:10)
[2022-07-07] MEDS: APIXABAN 5 MG TABLET PO ×2 (08:27→20:54)
[2022-07-07] MEDS: Sodium Chloride 1 GM Tablet PO ×2 (08:27→20:54)
[2022-07-07] MEDS: Lisinopril 20 MG Tablet PO (08:27)
[2022-07-07] MEDS: Menthol/Lanolin/Calamine/Znox 113 GM Tube 1 APPLIC TOPICAL ×2 (08:28→20:53)
[2022-07-07 19:45] VITALS: BP 108/68; PULSE 81; RESP 17; TEMP 37; O2SAT 98
[2022-07-07] MEDS: Atorvastatin Calcium 20 MG Tablet PO (20:54)
[2022-07-08] MEDS: Acetaminophen 325 MG Tablet 650 MG PO ×3 (05:18→18:03)
[2022-07-08 05:54] LABS: Anion Gap 6 (5-15); BUN 20 mg/dL (7-18); BUN/Creat Ratio 25.9 RATIO (10-20); Calcium,Total 9.5 mg/dL (8.5-10.1); Chloride 101 mmol/L (98-107); Creatinine, Serum 0.77 mg/dL (0.70-1.30); EST Glomerular Filtration Rate 120 mL/min (>60); Est Glom Filt Rate - Afr Amer 145 mL/min (>60); Estimated Creatinine Clearance 117.38 ml/min; Glucose 108 mg/dL (74-106); Potassium 4.1 mmol/L (3.5-5.1); Sodium Level 137 mmol/L (136-145)
[2022-07-08] MEDS: Sodium Chloride 1 GM Tablet PO ×2 (07:44→21:31)
[2022-07-08] MEDS: APIXABAN 5 MG TABLET PO ×2 (07:44→21:30)
[2022-07-08] MEDS: Carvedilol 3.125 MG TABLET PO ×2 (07:44→18:03)
[2022-07-08] MEDS: Lisinopril 20 MG Tablet PO (07:45)
[2022-07-08] MEDS: Menthol/Lanolin/Calamine/Znox 113 GM Tube 1 APPLIC TOPICAL ×2 (07:45→21:31)
[2022-07-08 10:00] VITALS: BP 109/76; PULSE 96; RESP 16; TEMP 36.1; O2SAT 97
--- NOTE | 2022-07-08 12:17 | PCM.PROGNOTE ---
Subjective Subjective Afebrile VSS Maintaining appropriate oxygen saturation on RA Oral intake is good Discussed with nursing - no problems that need addressed. He is still incontinent of urine and stool. Reviewed the PT/OT/ST notes Medication list reviewed. All lab from today was personally reviewed. The sodium is normal at 137 and potassium is normal at 4.1. The BUN is 20 with a stable creatinine of 0.77. Romeo has no complaints. He denies pain, nausea, SOB. He does not look to be in any distress. Objective Data Objective Data Vital Signs: Vital Signs Temp Pulse Resp BP Pulse Ox O2 Del Method 97 F L 96 16 109/76 97 Room Air 07/08/22 10:00 07/08/22 10:00 07/08/22 10:00 07/08/22 10:00 07/08/22 10:00 07/08/22 10:00 Oxygen Delivery Method Room Air Weight: 208 lb 15.971 oz Body Mass Index (BMI) 39.2 Intake & Output: Intake and Output for Last 24 Hours 07/06/22 07/07/22 07/08/22 23:59 23:59 23:59 Intake Total 900 / 900 1090 / 1090 600 / 600 Output Total 2550 / 2550 1300 / 1300 600 / 600 Balance -1650 / -1650 -210 / -210 0 / 0 Lab / Micro Data Result Diagrams: 06/28/22 05:43 07/08/22 05:25 Labs: Laboratory Results - last 24 hr 07/08/22 05:25: Sodium 137, Potassium 4.1, Chloride 101, Carbon Dioxide 30.0, Anion Gap 6, BUN 20 H, Creatinine 0.77, Estim Creat Clear Calc 117.38, Est GFR (MDRD) Af Amer 145, Est GFR (MDRD) Non-Af 120, BUN/Creatinine Ratio 25.9 H, Glucose 108 H, Calcium 9.5 Micro: Microbiology 07/01/22 06:15 Other - Eye Gram Stain - Final 07/01/22 06:15 Other - Eye Eye Culture - Final Staphylococcus epidermidis#2 Staphylococcus epidermidis 07/01/22 06:15 Other - Eye Anaerobic Culture - Final Anaerobic cocci Physical Exam Const alert General Appearance: cooperative HEENT HEENT Narrative: Moist MM. No thrush Resp normal respiratory effort and clear to auscultation bilaterally Cardio regular rate, regular rhythm and no gallops GI normal to inspection, nondistended, normoactive bowel sounds, soft to palpation and non-tender GI Narrative: No guarding with palpation. Extremity Extremity Narrative: No grimacing when I squeeze his calves and he denies pain General Extremity: Negative for edema Skin General Skin Exam: no breakdown Rashes: no rashes Neuro Neuro Narrative: no obvious edema where the craniotomy bone flap was removed. Usually with 1 word answers or a 3-4 word phrase. Stilling saying a little bit Assessment & Plan Assessment/Plan (1) Debility: (2) Arterial ischemic stroke, MCA (middle cerebral artery), left, acute: (3) Status post craniotomy: (4) Acquired skull defect: (5) Cognitive dysfunction due to stroke: (6) Raymond-inattention: (7) Dysphagia: (8) Global aphasia: (9) Conjunctivitis: PLAN: Resolved (10) Hypertension: PLAN: I have been weaning the meds down and the BP is still a bit on the low side although he is asymptomatic. Will DC the Lisinopril today and if the BP increases will increase the Coreg and try to maintain on only 1 antihypertensive medication. PLAN: Plan 1. Continue therapy 2. Begin a toileting routine and get him on the BSC or the toilet after meals. 3. Continue the NACL tabs Charges/Coding Visit Charges Inpatient E&M: 37133 Subs Hosp L2
[2022-07-08 19:26] VITALS: BP 111/76; PULSE 79; RESP 18; TEMP 36.6; O2SAT 99
[2022-07-08] MEDS: Atorvastatin Calcium 20 MG Tablet PO (21:30)
[2022-07-08 22:00] VITALS: RESP 17
[2022-07-09 06:00] VITALS: BMI 33.7
[2022-07-09 07:21] VITALS: BP 97/73; PULSE 89; RESP 16; TEMP 36.3; O2SAT 97
[2022-07-09] MEDS: APIXABAN 5 MG TABLET PO ×2 (08:13→21:28)
[2022-07-09] MEDS: Lisinopril 20 MG Tablet PO (08:13)
[2022-07-09] MEDS: Sodium Chloride 1 GM Tablet PO ×2 (08:13→21:28)
[2022-07-09] MEDS: Carvedilol 3.125 MG TABLET PO ×2 (08:13→16:33)
[2022-07-09 19:18] VITALS: BP 100/60; PULSE 78; RESP 16; TEMP 36.6; O2SAT 99
[2022-07-09] MEDS: Atorvastatin Calcium 20 MG Tablet PO (21:28)
[2022-07-09 22:00] VITALS: PULSE 78; RESP 15; O2SAT 99
[2022-07-10 06:00] VITALS: BMI 33.6
[2022-07-10 07:37] VITALS: BP 116/68; PULSE 78; RESP 17; TEMP 36.6; O2SAT 100
[2022-07-10] MEDS: Sodium Chloride 1 GM Tablet PO ×2 (08:20→20:46)
[2022-07-10] MEDS: Carvedilol 3.125 MG TABLET PO ×2 (08:21→16:04)
[2022-07-10] MEDS: APIXABAN 5 MG TABLET PO ×2 (08:21→20:46)
--- NOTE | 2022-07-10 14:51 | PCM.PN.BLA ---
Progress Note Afebrile VSS -lisinopril was discontinued and the blood pressure is 116/68 this morning. Maintaining appropriate oxygen saturation on RA Oral intake is good Discussed with nursing - no problems that need addressed Reviewed the PT/OT/ST notes - He is able to advance his R foot without the PT pushing it forward for him. He was placed on the toilet 2 times today and did not go either time. He is incontinent of urine. Medication list reviewed. Romeo denies chest pain, shortness of breath, cough, nausea, lightheadedness. He has no complaints today. Also denies cephalgia. Physical Exam Const alert, oriented x3 and no apparent distress General Appearance: cooperative and comfortable Resp normal respiratory effort, no use of accessory muscles and clear to auscultation bilaterally Cardio regular rate, regular rhythm, S1 normal heart sound, S2 normal heart sound, no murmurs, no rub and no gallops GI normal to inspection, nondistended, normoactive bowel sounds, non-tender and non-distended GI Narrative: no guarding with palpation Extremity no clubbing, cyanosis or edema Skin no rashes or lesions noted, no wounds and no jaundice Neuro oriented x3, CN's II-XII intact bilaterally and no focal motor deficits Sensorium / Orientation: alert Psych affect normal Psych Narrative: appropriate, makes good eye contact Assessment & Plan Assessment/Plan (1) Debility: (2) Arterial ischemic stroke, MCA (middle cerebral artery), left, acute: (3) Status post craniotomy: (4) Acquired skull defect: (5) 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 Continue therapy. Family will be coming in several days this week for family training on how best to assist Romeo. 2. I have been weaning the meds down and the BP is still a bit on the low side although he is asymptomatic. Will DC the Lisinopril today and if the BP increases will increase the Coreg and try to maintain on only 1 antihypertensive medication. 3. We will trial Romeo with Car transfers later this week. 4. Plan is for home at [place]. Visit Charges Inpatient E&M: 87687 Subs Hosp L2
[2022-07-10 19:36] VITALS: BP 108/69; PULSE 83; RESP 17; TEMP 36.2; O2SAT 98
[2022-07-10] MEDS: Senna/Docusate Sodium 1 Tablet 2 TABLET PO (20:46)
[2022-07-10] MEDS: Atorvastatin Calcium 20 MG Tablet PO (20:46)
[2022-07-10 21:00] VITALS: O2SAT 98
[2022-07-11 06:04] VITALS: BMI 33.7
[2022-07-11 07:49] VITALS: BP 109/79; PULSE 78; RESP 16; TEMP 36.8; O2SAT 97
[2022-07-11] MEDS: Carvedilol 3.125 MG TABLET PO ×2 (08:29→15:37)
[2022-07-11] MEDS: Sodium Chloride 1 GM Tablet PO ×2 (08:29→21:14)
[2022-07-11] MEDS: APIXABAN 5 MG TABLET PO ×2 (08:29→21:14)
--- NOTE | 2022-07-11 12:24 | PCM.PROGNOTE ---
Subjective Subjective Romeo was seen on team rounds today. His family was present in the room and they have been coming in this week for family training in preparation for Romeo going home. Afebrile VSS Maintaining appropriate oxygen saturation on RA Oral intake is very good Discussed with nursing - no problems that need addressed Reviewed the PT/OT/ST notes Medication list reviewed. No complaints from Romeo. therapy tells me that Romeo is very regular with BM's and goes almost every day after breakfast......will make every effort to get him on the toilet or BSC prior to him being incontinent. Objective Data Objective Data Vital Signs: Vital Signs Temp Pulse Resp BP Pulse Ox O2 Del Method 98.2 F 78 16 109/79 97 Room Air 07/11/22 07:49 07/11/22 07:49 07/11/22 07:49 07/11/22 07:49 07/11/22 07:49 07/11/22 07:49 Oxygen Delivery Method Room Air Weight: 208 lb 15.971 oz Body Mass Index (BMI) 33.7 Intake & Output: Intake and Output for Last 24 Hours 07/09/22 07/10/22 07/11/22 23:59 23:59 23:59 Intake Total 1770 / 1770 1300 / 1300 760 / 760 Output Total 1925 / 1925 400 / 400 800 / 800 Balance -155 / -155 900 / 900 -40 / -40 Lab / Micro Data Result Diagrams: 06/28/22 05:43 07/08/22 05:25 Micro: Microbiology 07/01/22 06:15 Other - Eye Gram Stain - Final 07/01/22 06:15 Other - Eye Eye Culture - Final Staphylococcus epidermidis#2 Staphylococcus epidermidis 07/01/22 06:15 Other - Eye Anaerobic Culture - Final Anaerobic cocci Physical Exam Const alert and no apparent distress Constitutional Narrative: Sitting in the recliner at the bedside dressed and appears in no acute distress. He is smiling and responds to me quickly when I ask him a question. General Appearance: cooperative and comfortable Eyes PERRL and EOMs intact bilaterally Eyes Narrative: no gaze preference Neck Neck Narrative: Still with some torticollis........head is more often than not tilted to the R but, he is able to hold his head up straighter when asked to. Resp normal respiratory effort, no use of accessory muscles and clear to auscultation bilaterally Resp Narrative: No cough. Not tachypneic. No labored breathing. Cardio regular rate, regular rhythm, S1 normal heart sound, S2 normal heart sound, no murmurs, no rub and no gallops Cardio Narrative: No ectopy Rate: regular rate Rhythm: regular rhythm GI normal to inspection, nondistended, normoactive bowel sounds, non-tender and non-distended GI Narrative: no guarding with palpation Extremity no clubbing, cyanosis or edema Extremity Narrative: No grimacing when I squeeze his calves and he denies pain General Extremity: Negative for edema Skin no rashes or lesions noted, no wounds and no jaundice Skin Narrative: the decub on the R buttock is shrinking. There is no increased warmth to touch and no DC. Continue with Calmoseptine and Mepilex. General Skin Exam: no breakdown Rashes: no rashes Wound Narrative: The craniotomy incision is intact with no lorenza-incisional erythema and no discharge. Cerebral edema has decreased significantly since admission. There is some dried blood crusts over the incision which will fall off on their own. Neuro oriented x3, CN's II-XII intact bilaterally and no focal motor deficits Neuro Narrative: no obvious edema where the craniotomy bone flap was removed. Usually with 1 word answers or a 3-4 word phrase. 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 Continue therapy. Family will be coming in several days this week for family training on how best to assist Romeo. 2. Blood pressure remains good off lisinopril and on Coreg 3.125 mg twice daily. If the systolic stays in the 100-110 range will try discontinuing Coreg prior to discharge to see if the blood pressure remains within normal limits. 3. The family has a hemiwalker at home but will need a hospital bed and a 3 in 1 commode. 4. Plan is for discharge home, possibly near the end of next week if he continues to improve. 5. He was able to successfully complete getting into a car today. Family is very supportive. (10) Fecal incontinence: (11) Urinary incontinence: (12) Hyponatremia:
--- NOTE | 2022-07-11 13:20 | CASEMGMT ---
Social Work IDT met with patient and family for Team meeting. Discussed patient's progress in PT/OT/ST/SN. Educated to [place] CM insurance with [employer] 07/11 and continued to stay is not guaranteed. Discussed DC plans. Family is helping patient during the day. Offered to begin planning for transition home. Family agrees they would like to take him straight home. Reviewed DC needs: hospital bed, BSC, and skilled HHC. SW to begin coordinating those needs. If insurance approves another week, pt will DC shortly after that timeframe. SW to continue to follow. Fabienne Peter, SCALE RECLAMATION TENDER THROUGH FREIGHT ENGINEER
[2022-07-11] MEDS: Atorvastatin Calcium 20 MG Tablet PO (21:14)
[2022-07-11 21:15] VITALS: BP 113/78; PULSE 82; RESP 17; TEMP 36.6; O2SAT 97
[2022-07-11] MEDS: Ipratropium Bromide 0.06% NASAL SPRAY 2 SPRAY NASAL (21:15)
[2022-07-12 06:00] VITALS: BMI 34.0
[2022-07-12 08:28] VITALS: BP 114/81; PULSE 80; RESP 16; TEMP 36; O2SAT 97
[2022-07-12] MEDS: Ipratropium Bromide 0.06% NASAL SPRAY 2 SPRAY NASAL ×2 (08:30→21:14)
[2022-07-12] MEDS: APIXABAN 5 MG TABLET PO ×2 (08:30→21:14)
[2022-07-12] MEDS: Sodium Chloride 1 GM Tablet PO ×2 (08:30→21:14)
[2022-07-12] MEDS: Carvedilol 3.125 MG TABLET PO ×2 (08:30→16:28)
--- NOTE | 2022-07-12 16:03 | CASEMGMT ---
Addendum entered by Fabienne Peter 07/15/22 11:21: Error in dates: NRD 07/18, DC 07/19 Original Note: Social Work Spoke with pt's sister and insurance approved with [employer]D 07/19. Offered to set DC 07/20. Sister and family in agreement. Confirmed DME needs. Referral sent to [facility] [place] via [employer]. SW made several referrals for [facility] d/t to insurance and location, via [employer]. Many denied but [facility] can accept. Family stated they can transport pt. IDT updated. Plan: DC home with family 07/20, [facility] PT/OT/ST/SN, hospital bed, BSC Fabienne Peter, BIOINFORMATICS ENGINEER NUTRITION COUNSELOR
[2022-07-12 19:46] VITALS: BP 114/74; PULSE 81; RESP 18; TEMP 37.3; O2SAT 99
[2022-07-12 21:00] VITALS: PULSE 81; RESP 18; TEMP 36.6; O2SAT 99
[2022-07-12] MEDS: Atorvastatin Calcium 20 MG Tablet PO (21:14)
[2022-07-12] MEDS: Menthol/Lanolin/Calamine/Znox 113 GM Tube 1 APPLIC TOPICAL (21:15)
[2022-07-13 06:00] VITALS: BMI 34.0
[2022-07-13 07:37] VITALS: BP 126/61; PULSE 83; RESP 17; TEMP 36.7; O2SAT 100
[2022-07-13] MEDS: Carvedilol 3.125 MG TABLET PO ×2 (08:17→17:02)
[2022-07-13] MEDS: Ipratropium Bromide 0.06% NASAL SPRAY 2 SPRAY NASAL ×2 (08:17→22:21)
[2022-07-13] MEDS: APIXABAN 5 MG TABLET PO ×2 (08:18→22:21)
[2022-07-13] MEDS: Sodium Chloride 1 GM Tablet PO ×2 (08:19→22:22)
[2022-07-13] MEDS: Senna/Docusate Sodium 1 Tablet 2 TABLET PO ×2 (08:21→22:22)
[2022-07-13] MEDS: Menthol/Lanolin/Calamine/Znox 113 GM Tube 1 APPLIC TOPICAL ×2 (08:22→22:22)
[2022-07-13 19:01] VITALS: BP 105/75; PULSE 90; RESP 16; TEMP 36.5; O2SAT 96
[2022-07-13 21:59] VITALS: PULSE 90; RESP 16; O2SAT 96
[2022-07-13] MEDS: Atorvastatin Calcium 20 MG Tablet PO (22:22)
[2022-07-14 06:00] VITALS: BMI 34.0
[2022-07-14 07:37] VITALS: BP 110/81; PULSE 76; RESP 15; TEMP 36.3; O2SAT 98
[2022-07-14] MEDS: Carvedilol 3.125 MG TABLET PO ×2 (09:00→18:13)
[2022-07-14] MEDS: Ipratropium Bromide 0.06% NASAL SPRAY 2 SPRAY NASAL ×2 (09:00→22:24)
[2022-07-14] MEDS: Senna/Docusate Sodium 1 Tablet 2 TABLET PO ×2 (09:01→22:25)
[2022-07-14] MEDS: APIXABAN 5 MG TABLET PO ×2 (09:01→22:24)
[2022-07-14] MEDS: Sodium Chloride 1 GM Tablet PO ×2 (09:02→22:25)
[2022-07-14] MEDS: Menthol/Lanolin/Calamine/Znox 113 GM Tube 1 APPLIC TOPICAL ×2 (09:04→22:30)
[2022-07-14 19:18] VITALS: BP 116/83; PULSE 83; RESP 14; TEMP 36.3; O2SAT 99
[2022-07-14 22:00] VITALS: PULSE 83; RESP 15; O2SAT 97
[2022-07-14] MEDS: Atorvastatin Calcium 20 MG Tablet PO (22:25)
[2022-07-15 06:00] VITALS: BMI 34.0
[2022-07-15 07:38] VITALS: BP 115/85; PULSE 77; RESP 16; TEMP 36.2; O2SAT 100
[2022-07-15] MEDS: Ipratropium Bromide 0.06% NASAL SPRAY 2 SPRAY NASAL ×2 (08:01→22:58)
[2022-07-15] MEDS: Senna/Docusate Sodium 1 Tablet 2 TABLET PO (08:02)
[2022-07-15] MEDS: Carvedilol 3.125 MG TABLET PO ×2 (08:02→16:14)
[2022-07-15] MEDS: APIXABAN 5 MG TABLET PO ×2 (08:02→22:58)
[2022-07-15] MEDS: Sodium Chloride 1 GM Tablet PO ×2 (08:02→22:58)
[2022-07-15] MEDS: Menthol/Lanolin/Calamine/Znox 113 GM Tube 1 APPLIC TOPICAL ×2 (08:03→22:58)
--- NOTE | 2022-07-15 11:31 | PN_ITS ---
Subjective Subjective Afebrile VSS Maintaining appropriate oxygen saturation on RA Oral intake is good Discussed with nursing - no problems that need addressed Reviewed the PT/OT/ST notes Medication list reviewed. Family is here for training once again today. His Sister Gege has quit her job and will take care of Romeo. Family feels comfortable with taking Romeo home this coming Friday. Romeo has no complaints today. He denies pain, shortness of breath, lightheadedness. He appears comfortable and he is smiling and in no apparent distress. He is sleeping well at night and appetite is good. Objective Data Objective Data Vital Signs: Vital Signs Temp Pulse Resp BP Pulse Ox O2 Del Method 97.1 F L 77 16 115/85 H 100 Room Air 07/15/22 07:38 07/15/22 07:38 07/15/22 07:38 07/15/22 07:38 07/15/22 07:38 07/15/22 07:38 Oxygen Delivery Method Room Air Weight: 210 lb 15.718 oz Body Mass Index (BMI) 34.0 Intake & Output: Intake and Output for Last 24 Hours 07/13/22 07/14/22 07/15/22 23:59 23:59 23:59 Intake Total 1870 / 1870 1570 / 1830 800 / 800 Output Total 1400 / 1400 450 / 450 250 / 250 Balance 470 / 470 1120 / 1380 550 / 550 Lab / Micro Data Result Diagrams: 07/16/22 05:18 07/16/22 05:18 Micro: Microbiology 07/14/22 17:15 Gastric Tube (Gastrostomy) Wound Culture - Preliminary Coag Negative Staph 07/01/22 06:15 Other - Eye Gram Stain - Final 07/01/22 06:15 Other - Eye Eye Culture - Final Staphylococcus epidermidis#2 Staphylococcus epidermidis 07/01/22 06:15 Other - Eye Anaerobic Culture - Final Anaerobic cocci Physical Exam Const alert, no apparent distress and well nourished General Appearance: cooperative HEENT moist oral mucous membranes Resp clear to auscultation bilaterally Cardio regular rate, regular rhythm, no murmurs and no gallops GI normal to inspection, nondistended, normoactive bowel sounds and soft to palpation GI Narrative: No guarding with palpation and no grimacing. Extremity Extremity Narrative: No peripheral edema. Skin General Skin Exam: no breakdown Rashes: no rashes Psych affect normal Assessment & Plan Assessment/Plan (1) Debility: (2) Arterial ischemic stroke, MCA (middle cerebral artery), left, acute: (3) Status post craniotomy: (4) Acquired skull defect: (5) Cognitive dysfunction due to stroke: (6) Raymond-inattention: (7) Dysphagia: (8) Global aphasia: (9) Hypertension: (10) Fecal incontinence: (11) Urinary incontinence: (12) Hyponatremia: PLAN: Plan 1. Continue therapy 2. CBC with no differential and CMP in the AM. 3. Plan discharge for this coming Friday-Home with family. 4. Hospital bed for home is being arranged. He will also need a hemiwalker and a 3 in 1 commode. Romeo's family is very supportive and they have arranged for most of the equipment he will need. spinning room worker is arranging for the remainder. 5. Romeo has an upcoming appt at [facility] to arrange for replacement of the bone flap. I assured his family that if Romeo needs additional rehab following the surgery we will accept him back. Charges/Coding Visit Charges Inpatient E&M: 75470 Subs Hosp L2
[2022-07-15 19:42] VITALS: BP 119/85; PULSE 76; RESP 16; TEMP 36.1; O2SAT 99
[2022-07-15] MEDS: Atorvastatin Calcium 20 MG Tablet PO (22:58)
[2022-07-16 05:52] VITALS: BMI 33.6
[2022-07-16 06:00] LABS: Hematocrit 43.5 % (40-54); Hemoglobin 13.9 g/dL (13.0-16.5); Mean Corpuscular Hgb 28.8 pg (27.0-32.0); Mean Corpuscular Volume 90.1 fL (80-94); Mean Platelet Vol. 9.1 fl (6.2-12.0); Platelet Count 294 K/mm3 (150-450); RBC Distribution Width CV 12.5 % (11.6-14.6); RBC Distribution Width SD 41.4 fl (35.1-43.9); Red Blood Count 4.83 M/mm3 (4.6-6.2); White Blood Count 9.7 K/mm3 (4.4-11.0)
[2022-07-16 06:40] LABS: ALB/GLOB Ratio 0.9 RATIO (0.9-2.4); AST(SGOT) 16 U/L (15-37); Alanine Aminotransfer ALT/SGPT 68 U/L (16-61); Albumin, Serum 3.4 g/dL (3.2-5.0); Alkaline Phosphatase 146 U/L (45-117); Anion Gap 7 (5-15); BUN 21 mg/dL (7-18); BUN/Creat Ratio 23.6 RATIO (10-20); Calcium,Total 9.7 mg/dL (8.5-10.1); Chloride 104 mmol/L (98-107); Creatinine, Serum 0.89 mg/dL (0.70-1.30); EST Glomerular Filtration Rate 101 mL/min (>60); Est Glom Filt Rate - Afr Amer 123 mL/min (>60); Estimated Creatinine Clearance 101.55 ml/min; Globulin 3.8 g/dL (2.2-4.2); Glucose 101 mg/dL (74-106); Protein, Total 7.2 g/dL (6.4-8.2); Sodium Level 141 mmol/L (136-145)
[2022-07-16 07:24] VITALS: BP 125/85; PULSE 77; RESP 16; TEMP 37; O2SAT 97
[2022-07-16] MEDS: Ipratropium Bromide 0.06% NASAL SPRAY 2 SPRAY NASAL ×2 (08:25→20:47)
[2022-07-16] MEDS: Sodium Chloride 1 GM Tablet PO (08:25)
[2022-07-16] MEDS: Carvedilol 3.125 MG TABLET PO ×2 (08:25→16:44)
[2022-07-16] MEDS: APIXABAN 5 MG TABLET PO ×2 (08:26→20:47)
[2022-07-16] MEDS: Menthol/Lanolin/Calamine/Znox 113 GM Tube 1 APPLIC TOPICAL ×2 (08:34→20:48)
--- NOTE | 2022-07-16 10:46 | PCM.PROGNOTE ---
Subjective Subjective Afebrile VSS Maintaining appropriate oxygen saturation on RA Oral intake is good Remains incontinent of both stool and urine. We have been using a pure-Wick catheter to keep him dry at night. Will get a UA prior to DC. Discussed with nursing - A culture was taken from drainage around the PEG site on Friday and the results are still pending. We have not been using the PEG but we are still flushing. Reviewed the PT/OT/ST notes Medication list reviewed. All lab from this AM was personally reviewed. Hemoglobin is stable and within normal limits. White blood cell count and platelets are also within normal limits. Sodium is 141 and the potassium is within normal limits. BUN is increased and there is an increased BUN/creatinine ratio but the creatinine is stable. There is a mild elevation of ALT and alkaline phosphatase but the AST and bilirubin are normal. The elevations are mild and may be secondary to the statin which was added at the time of the stroke. No need to change medication at this time but would recheck liver profile and a lipid profile in 3 months. Romeo denies pain at the PEG site. He has no complaints today and he appears comfortable and in no distress. He is sleeping well at night and has a good appetite and intake. Objective Data Objective Data Vital Signs: Vital Signs Temp Pulse Resp BP Pulse Ox O2 Del Method 98.6 F 77 16 125/85 H 97 Room Air 07/16/22 07:24 07/16/22 07:24 07/16/22 07:24 07/16/22 07:24 07/16/22 07:24 07/16/22 07:24 Oxygen Delivery Method Room Air Weight: 208 lb 5.389 oz Body Mass Index (BMI) 33.6 Intake & Output: Intake and Output for Last 24 Hours 07/14/22 07/15/22 07/16/22 23:59 23:59 23:59 Intake Total 1570 / 1830 1740 / 1740 720 / 720 Output Total 450 / 450 750 / 750 Balance 1120 / 1380 990 / 990 720 / 720 Lab / Micro Data Result Diagrams: 07/16/22 05:18 07/16/22 05:18 Labs: Laboratory Results - last 24 hr 07/16/22 05:18: WBC 9.7, RBC 4.83, Hgb 13.9, Hct 43.5, MCV 90.1, MCH 28.8, MCHC 32.0, RDW Std Deviation 41.4, RDW Coeff of Jordi 12.5, Plt Count 294, MPV 9.1 07/16/22 05:18: Sodium 141, Potassium 4.0, Chloride 104, Carbon Dioxide 30.0, Anion Gap 7, BUN 21 H, Creatinine 0.89, Estim Creat Clear Calc 101.55, Est GFR (MDRD) Af Amer 123, Est GFR (MDRD) Non-Af 101, BUN/Creatinine Ratio 23.6 H, Glucose 101, Calcium 9.7, Total Bilirubin 0.60, AST 16, ALT 68 H, Alkaline Phosphatase 146 H, Total Protein 7.2, Albumin 3.4, Globulin 3.8, Albumin/Globulin Ratio 0.9 Micro: Microbiology 07/14/22 17:15 Gastric Tube (Gastrostomy) Gram Stain - Final 07/14/22 17:15 Gastric Tube (Gastrostomy) Wound Culture - Preliminary Coag Negative Staph Staphylococcus species 07/01/22 06:15 Other - Eye Gram Stain - Final 07/01/22 06:15 Other - Eye Eye Culture - Final Staphylococcus epidermidis#2 Staphylococcus epidermidis 07/01/22 06:15 Other - Eye Anaerobic Culture - Final Anaerobic cocci Physical Exam Const alert Constitutional Narrative: Able to follow simple commands. Smiling. NAD. General Appearance: cooperative HEENT HEENT Narrative: No thrush Mouth: dry mucous membranes Eyes PERRL and EOMs intact bilaterally Eyes Narrative: No conjunctival injection, no scleral icterus, no mattering of the eyelashes and no eye discharge. Neck Neck Narrative: Torticollis is much improved. Resp clear to auscultation bilaterally Auscultation: diminished lung sounds bilateral (Only moderate respiratory effort. No cough and he is not tachypneic.) Cardio regular rate, regular rhythm, no murmurs and no gallops GI normal to inspection, nondistended, normoactive bowel sounds, soft to palpation and non-tender GI Narrative: The PEG site is not reddened and there is only a small amount of DC. Awaiting the results of the culture of the drainage taken on 07/14/22. No odor to the discharge. Extremity General Extremity: Negative for edema Skin General Skin Exam: no breakdown Rashes: no rashes Assessment & Plan Assessment/Plan (1) Debility: (2) Arterial ischemic stroke, MCA (middle cerebral artery), left, acute: (3) Status post craniotomy: (4) Acquired skull defect: (5) Cognitive dysfunction due to stroke: (6) Global aphasia: (7) Hypertension: (8) Fecal incontinence: (9) Urinary incontinence: PLAN: Plan 1. Continue therapy 2. Continue atorvastatin despite mild elevations in ALT and alkaline phosphatase. They are not even twice the upper limits of normal. Will recommend recheck in 3 months of a lipid panel and liver panel. 3. Decrease the sodium chloride tablet to 1 p.o. daily. We may be able to discontinue this if the sodium remains normal. 4. Plan on discharge home this coming Friday. 5. BMP Friday AM 6. Will inquire whether there is a way to use a condom cath at night when he goes home to keep him dry at night and prevent skin breakdown. Charges/Coding Visit Charges Inpatient E&M: 87889 Subs Hosp L2
[2022-07-16 19:24] VITALS: BP 109/74; PULSE 74; RESP 14; TEMP 36.7; O2SAT 99
[2022-07-16 19:45] VITALS: O2SAT 98
[2022-07-16] MEDS: Atorvastatin Calcium 20 MG Tablet PO (20:47)
[2022-07-16] MEDS: Senna/Docusate Sodium 1 Tablet 2 TABLET PO (20:47)
[2022-07-17 05:46] VITALS: BMI 33.8
[2022-07-17 07:30] VITALS: BP 121/85; PULSE 73; RESP 16; TEMP 36.8; O2SAT 98
[2022-07-17] MEDS: Carvedilol 3.125 MG TABLET PO ×2 (07:59→17:11)
[2022-07-17] MEDS: Ipratropium Bromide 0.06% NASAL SPRAY 2 SPRAY NASAL ×2 (08:00→20:13)
[2022-07-17] MEDS: APIXABAN 5 MG TABLET PO ×2 (08:01→20:15)
[2022-07-17] MEDS: Menthol/Lanolin/Calamine/Znox 113 GM Tube 1 APPLIC TOPICAL ×2 (08:01→20:15)
[2022-07-17] MEDS: Sodium Chloride 1 GM Tablet PO (08:01)
[2022-07-17 14:17] LABS: Bacteria 0 SEEN /hpf (None Seen); Mucous, Urine 0 SEEN /hpf (<or=2+); Red Blood Cells-Urine 0 SEEN /hpf (0-5); Squamous Epithelial Cells - UA 0 SEEN /hpf (0-5); White Blood Cells 0 SEEN /hpf (0-5)
[2022-07-17 14:20] LABS: Color, Urine Yellow (Yellow); Glucose, Dipstick Normal (Normal); Ketone-Dipstick Negative (Negative); Leukocyte Esterase-Dipstick Negative /ul (Negative); Nitrite-Dipstick Negative (Negative); Occult Blood-Urine Negative /ul (Negative); Protein-Dipstick Negative (Negative); Specific Gravity, Urine 1.025 (1.002-1.030); Urine Bilirubin Dipstick Negative (Negative); Urine Clarity Clear (Clear); Urine Urobilinogen Normal (Normal)
[2022-07-17 20:06] VITALS: BP 121/71; PULSE 85; RESP 14; TEMP 36.8; O2SAT 97
[2022-07-17 20:07] VITALS: O2SAT 97
[2022-07-17] MEDS: Atorvastatin Calcium 20 MG Tablet PO (20:15)
[2022-07-17] MEDS: Senna/Docusate Sodium 1 Tablet 2 TABLET PO (20:15)
[2022-07-18 06:06] VITALS: BMI 34.0
[2022-07-18 08:19] VITALS: BP 115/85; PULSE 80; RESP 17; TEMP 36.9; O2SAT 97
[2022-07-18] MEDS: Ipratropium Bromide 0.06% NASAL SPRAY 2 SPRAY NASAL ×2 (08:25→21:09)
[2022-07-18] MEDS: Carvedilol 3.125 MG TABLET PO ×2 (08:26→16:12)
[2022-07-18] MEDS: Sodium Chloride 1 GM Tablet PO (08:26)
[2022-07-18] MEDS: APIXABAN 5 MG TABLET PO ×2 (08:26→21:09)
[2022-07-18] MEDS: Menthol/Lanolin/Calamine/Znox 113 GM Tube 1 APPLIC TOPICAL ×2 (08:27→21:09)
--- NOTE | 2022-07-18 12:24 | PN_ITS ---
Subjective Subjective Afebrile VSS -blood pressure is within goal with Coreg 3.125 mg twice daily. Maintaining appropriate oxygen saturation on RA Oral intake is very good Weight is stable. Discussed with nursing - no problems that need addressed Reviewed the PT/OT/ST notes Medication list reviewed. The UA from 07/17/2022 was negative for infection. Objective Data Objective Data Vital Signs: Vital Signs Temp Pulse Resp BP Pulse Ox O2 Del Method 98.4 F 80 17 115/85 H 97 Room Air 07/18/22 08:19 07/18/22 08:19 07/18/22 08:19 07/18/22 08:19 07/18/22 08:19 07/18/22 08:19 Oxygen Delivery Method Room Air Weight: 210 lb 12.191 oz Body Mass Index (BMI) 34.0 Intake & Output: Intake and Output for Last 24 Hours 07/16/22 07/17/22 07/18/22 23:59 23:59 23:59 Intake Total 1810 / 1810 3080 / 3080 210 / 210 Output Total 500 / 500 700 / 700 500 / 500 Balance 1310 / 1310 2380 / 2380 -290 / -290 Lab / Micro Data Result Diagrams: 07/16/22 05:18 07/16/22 05:18 Labs: Laboratory Results - last 24 hr 07/17/22 14:10: Urine Color Yellow, Urine Clarity Clear, Urine pH 5.0, Ur Specific [place] 1.025, Urine Protein Negative, Urine Glucose (UA) Normal, Urine Ketones Negative, Urine Occult Blood Negative, Urine Nitrite Negative, Urine Bilirubin Negative, Urine Urobilinogen Normal, Ur Leukocyte Esterase Negative, Urine RBC 0 SEEN, Urine WBC 0 SEEN, Ur Squamous Epith Cells 0 SEEN, Urine Bacteria 0 SEEN, Urine Mucus 0 SEEN Micro: Microbiology 07/14/22 17:15 Gastric Tube (Gastrostomy) Gram Stain - Final 07/14/22 17:15 Gastric Tube (Gastrostomy) Wound Culture - Final Staphylococcus epidermidis Marielyria rosea 07/01/22 06:15 Other - Eye Gram Stain - Final 07/01/22 06:15 Other - Eye Eye Culture - Final Staphylococcus epidermidis#2 Staphylococcus epidermidis 07/01/22 06:15 Other - Eye Anaerobic Culture - Final Anaerobic cocci Physical Exam Const alert Constitutional Narrative: Able to follow simple commands. Smiling. NAD. General Appearance: cooperative HEENT moist oral mucous membranes and oropharynx normal Eyes PERRL and EOMs intact bilaterally Eyes Narrative: No nystagmus. Conjunctiva is clear and there is no discharge from the eye. There is no mattering of the eyelids. Neck supple, no JVD, No nodes and no carotid bruits Neck Narrative: Torticollis is much improved. General: trachea midline Resp clear to auscultation bilaterally Resp Narrative: Airflow is diminished but I believe this is secondary to poor inspiratory effort. Romeo has some difficulty in following some commands and others he can do well. Taking a deep breath is 1 he does not do very well. He is not tachypneic and breathing is not labored. There is no accessory muscle use. Auscultation: diminished lung sounds bilateral (Only moderate respiratory effort. No cough and he is not tachypneic.) Cardio regular rate, regular rhythm and no gallops Cardio Narrative: No ectopy Rate: regular rate Rhythm: regular rhythm GI normal to inspection, nondistended, normoactive bowel sounds, soft to palpation and non-tender GI Narrative: No guarding with palpation. The PEG tube site has no erythema and no purulent discharge. Extremity no calf tenderness Extremity Narrative: No peripheral edema. General Extremity: Negative for edema Skin no rashes or lesions noted, no wounds and no jaundice Skin Narrative: the decub on the R buttock is shrinking. There is no increased warmth to touch and no DC. Continue with Calmoseptine and Mepilex. General Skin Exam: no breakdown Rashes: no rashes Wounds: Negative for wounds noted Wound Narrative: The craniotomy incision is intact with no lorenza-incisional erythema and no discharge. Cerebral edema has decreased significantly since admission. There is some dried blood crusts over the incision which will fall off on their own. Neuro oriented x3, CN's II-XII intact bilaterally and no focal motor deficits Neuro Narrative: Mild right facial droop. Flaccid right hemiplegia. Right foot drop. Expressive and receptive aphasia. Decreased sensation right face, right arm and right leg. No ataxia. Neglect is much better than at admission. Dysarthria has significantly improved and I can clearly understand what he is saying and he has good projection of his voice now. Remains incontinent of urine and stool. Sensorium / Orientation: alert Psych cooperative, affect normal, denies homicidal ideation and denies suicidal ideation Psych Narrative: appropriate, makes good eye contact Appearance: appropriate Assessment & Plan Assessment/Plan (1) Debility: (2) Cerebral aneurysm: PLAN: L MCA - unruptured at presentation to [facility] ED. He also had a L basal ganglia hematoma at presentation to [facility] ED. (3) Cerebral aneurysm rupture: PLAN: t The rupture occurred during failed attempt to clip the aneurysm of the L MCA . (4) Status post aneurysm repair: PLAN: Failed attempt to clip the aneurysm. (5) Subarachnoid hemorrhage: (6) Dissection of cerebral artery: PLAN: This occurred during the procedure to clip the aneurysm. (7) Status post craniotomy: PLAN: On 05/24/22 for increasing cerebral edema with a 8.6 midline shift and generalized herniation. Post op an MRI showed a large L MCA ischemic stroke. (8) Arterial ischemic stroke, MCA (middle cerebral artery), left, acute: PLAN: Due to complete occlusion of the L MCA. There was distal reconstruction of the MCA. (9) Acquired skull defect: PLAN: Will follow up at for replacement of the bone flap. (10) Global aphasia: PLAN: He understands more than he can speak. Has a limited vocabulary but, has made progress with speech therapy and he will need to continue with ST going forward. 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 (16) Urinary incontinence: PLAN: Uses a condom cath at night to keep him dry. Recent UA negative for infection and has not had a urinary tract infection during his time on rehab. (17) DVT (deep venous thrombosis): PLAN: The clot was in the R brachial vein. Would repeat a venous US of the R arm in mid August and if the clot has resolved would DC Eliquis. I suspect he had a PICC at [facility] and this caused the DVT. 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 (19) Hypertension: PLAN: Lisinopril was discontinued. He remains on Coreg 3.125 mg BID. BP on the day of DC is 118/82. May be able to DC the Coreg if the BP stays in this range post DC. PLAN: Plan 1. Continue therapy Charges/Coding Visit Charges Inpatient E&M: 57417 Subs Hosp L1
--- NOTE | 2022-07-18 14:11 | DCINST_ITS ---
Discharge Instructions Diet Discharge Diet: Low fat / Low cholesterol, 4000 mg Sodium Diet and - (small bites, no straws, encourage good fluid intake.....I would like him to drink 50 ounces of water a day......that is 1,500 cc) Activity Discharge Activity: May Not Drive, May Shower and - (use Hemiwalker for ambulation) Weight Bearing Status: Full weight bearing Dressing / Incision Call your doctor if you observe: Fever of 101 or Higher, Inability to urinate, Inability to have a bowel movement, Shortness of breath, Dizziness, Fainting spells, Chest pain, Increased palpitations (irregular heartbeat), Calf discomfort, Uncontrolled pain and - (any change in behavior such as lethargy, increased agitation, confusion. Nausea/vomiting. Cloudy urine. ) Cleanse incision/area with: - (Clean around the PEG tube with soap and water......if there is increasing redness around the PEG site call the doctor) Catheter: - (Condom cath to a [place] bag at night. Remove during the day. ) Drain: [place] Follow Up Care Please Follow Up With: Mario Moreira When: 07/24/22 Test Results: Test results from this visit will be discussed in further detail at your follow- up appointment, if applicable. You also have appts for the surgeon to put the bone flap back on the head. Pending Tests Upon Discharge: none Discharge Plan Admission Admit Date/Time: 06/07/22 16:42 Primary Reason for Your Visit: Debility due to SAH, L MCA stroke, craniectomy. Attending Provider: Kristyn Wallace Primary Care Provider: Mario Moreira Instructions Patient Instructions: Bleeding Brain Aneurysms, Discharge Instructions for Stroke, ED Bladder Infection, Male (Adult), Booklet - Understanding Stroke Additional Instructions / Restrictions: 1. There are 2 kinds of stroke. The most common is an ischemic stroke and this accounts for at least 80% of all strokes. With an ischemic stroke the artery becomes blocked with either clot or plaque and no blood flow gets past the blockage. The brain cells past the blockage do not get blood flow and oxygen and the cells and this causes neurologic deficits. The other kind of stroke is a hemorrhagic stroke where an artery bursts, either due to an aneurysm or to a very elevated BP and you bleed into your brain. When the artery bursts the blood flow to all brain cells distal to the rupture do not get enough blood flow or oxygen and the brain cells and cause neurologic deficits. 2. Romeo had 2 different kinds of stroke. The first stroke was a hemorrhagic stroke due to a ruptured aneurysm. The doctors tried to coil the aneurysm through a catheter to stop it from bleeding. This caused a dissection of the artery which occluded one of the arteries in his brain and he had a ischemic stroke. There were no other aneurysms in the brain when they looked at all the arteries in the head and neck. 3. I have stopped 1 of Romeo's BP medications and his BP is good. He is still on a low dose of a BP medication called Coreg (carvedilol). Oftentimes when people go home their blood pressure changes. Some people are more relaxed and the blood pressure goes down. Other people are more anxious when going home and their blood pressure goes up. I would like to continue Romeo's blood pressure m edication for 1 month and if his blood pressure is less than 120/80 at that time I think we should try and stop the Coreg. It would be a good idea to have a BP cuff at home and take Marisols BP a few times a day at different times of the day to see how it is trending. 4. We are trying to get Romeo to a point where he knows when he has to have a BM and he can get on the toilet rather than being incontinent. This will take some training. Iris taught Romeo how to bear down and which muscles he has to use but, he is not consistently doing this when we put him on the toilet........when Iris and Romeo were in the therapy unit and she was teaching him which muscles to contract he had a BM so this works......we have to keep up with the education/training and I suspect with some more coaching while he is on the toilet to bear down he will be successful at going on the toilet. 5. When urine first came to rehab the sodium in his blood was low. We have had him on salt tablets (also called sodium chloride) and I have been able to decrease the dose to 1 tablet a day. Would recheck the sodium in his blood in 2 to 4 weeks and if the sodium is good I would discontinue the sodium chloride tablets. 6. Romeo is on a blood thinner called Eliquis (also called apixaban). He takes this medication every 12 hours and it is an anticoagulant. This is because he had a blood clot in one of his veins. He will need to stay on this medication until mid August and then he will need another venous US to see if the clot has resolved. 7. Romeo has high cholesterol. This is a risk factor for a strokes. He is on a medication called Atorvastatin (also called Lipitor). This medication helps to control the cholesterol. He will need to have a lipid panel and a liver panel checked in 4-[address] Moreira can order this for you. 8. We have not been using the PEG tube but, it still needs to be flushed regularly. I has been 6 weeks since the PEG was inserted so it is safe to remove it. Please ask the surgeon who is going to replace the bone flap if Romeo can have the PEG removed while he is at . If not then you can follow up with Dr. Multani, Dr. Barr or Dr. Rodríguez here at the [facility] to remove the tube.......this can be done in the office. 9. Romeo has done exceptionally well in therapy.......much better than any of us expected. 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 Your attention to Romeo is truly heartwarming for all of us who work in rehab. If you have any questions are Romeo leaves rehab please do not hesitate to call me. OFFICE: [phone] CELL: [phone] I will send a copy of the discharge instructions to Dr. Moreira and also a copy of the discharge summary. You will also receive a copy of the discharge summary. We will make 2-3 copies so you can take a copy to the surgeon who is going to replace the bone flap. If Romeo needs additional therapy after the flap is replced We would be happy to have him back for a few weeks. Discharge Orders/Prescriptions Prescriptions: New atorvastatin 20 mg Tablet 20 mg PO QHS Qty: 30 0RF carvedilol 3.125 mg Tablet 3.125 mg PO BIDCM Qty: 60 0RF sennosides-docusate sodium [Lax Stool Softener With Senna] 8.6-50 mg tablet 1 tab-cap PO BID Qty: 60 0RF apixaban 5 mg tablet 5 mg PO BID Qty: 60 0RF Rx Instructions: 1 tab every 12 hours. ipratropium bromide 42 mcg (0.06 %) [place],Non-Aerosol 2 spray NASAL BID Qty: 1 0RF DermaSeptin 0.5-20.65 % ointment See Rx Instructions .ROUTE .COMPLEX Qty: 720 6RF Rx Instructions: apply topically to the lorenza-rectal area BID and after BM's sodium chloride 1,000 mg Tablet,Soluble 1,000 mg PO DAILY Qty: 30 0RF acetaminophen [Acetaminophen Pain Relief] 500 mg tablet 500 mg PO Q6H PRN (Reason: fever or pain) Qty: 90 6RF Rx Instructions: 1-2 tabs PO every 6 hours as needed for pain or fever Discontinued acetaminophen [Tylenol] 325 mg Tablet 650 mg feeding tube Q6H atorvastatin 20 mg Tablet 20 mg feeding tube QHS carvedilol 3.125 mg Tablet 3.125 mg feeding tube BID Rx Instructions: must administer with a meal/food lisinopril 40 mg Tablet 40 mg feeding tube DAILY senna-docusate sodium Tablet 2 tab PO BID PRN (Reason: Constipation) Eliquis 5 mg Tablet 10 mg feeding tube BID Referrals / Follow Up: [facility] [Other] - 07/30/22 11:00 am (Ct Scan ) Dr Anatoly Das [Other] - 07/30/22 12:45 pm [facility] [Other] - 08/02/22 5:30 am Mario Moreira DO [Primary Care Provider] - 07/24/22 10:00 am Disposition Disposition (needs filled in before D/C Order can be placed): Home Health Service
[2022-07-18 19:31] VITALS: BP 115/76; PULSE 81; RESP 17; TEMP 37.1; O2SAT 100
[2022-07-18 20:17] VITALS: PULSE 85; RESP 17; O2SAT 100
[2022-07-18] MEDS: Atorvastatin Calcium 20 MG Tablet PO (21:10)
[2022-07-18] MEDS: Senna/Docusate Sodium 1 Tablet 2 TABLET PO (21:10)
[2022-07-19 05:05] VITALS: BMI 34.1
[2022-07-19 08:05] VITALS: BP 118/82; PULSE 89; RESP 16; TEMP 36.7; O2SAT 96
[2022-07-19] MEDS: Menthol/Lanolin/Calamine/Znox 113 GM Tube 1 APPLIC TOPICAL (08:07)
[2022-07-19] MEDS: APIXABAN 5 MG TABLET PO (08:07)
[2022-07-19] MEDS: Carvedilol 3.125 MG TABLET PO (08:07)
[2022-07-19] MEDS: Sodium Chloride 1 GM Tablet PO (08:07)
--- NOTE | 2022-07-19 09:26 | PCM.DC.SUM ---
Providers Date of Admission: 06/07/22 Date of Discharge: 07/19/22 Primary Care Physician: Dr. Mario Moreira DO Reason For Visit: STROKE Diagnosis Discharge Diagnosis (1) Debility: Status: Acute Code(s): R53.81 - Other malaise (2) Cerebral aneurysm: Status: Acute Code(s): I67.1 - Cerebral aneurysm, nonruptured Plan: L MCA - unruptured at presentation to [facility] ED. He also had a L basal ganglia hematoma at presentation to [facility] ED. (3) Cerebral aneurysm rupture: Status: Acute Code(s): I60.7 - Nontraumatic subarachnoid hemorrhage from unspecified intracranial artery Plan: t The rupture occurred during failed attempt to clip the aneurysm of the L MCA . (4) Status post aneurysm repair: Status: Acute Code(s): Z98.890 - Other specified postprocedural states; Z86.79 - Personal history of other diseases of the circulatory system Plan: Failed attempt to clip the aneurysm. (5) Subarachnoid hemorrhage: Status: Acute Code(s): I60.9 - Nontraumatic subarachnoid hemorrhage, unspecified (6) Dissection of cerebral artery: Status: Acute Code(s): I67.0 - Dissection of cerebral arteries, nonruptured Plan: This occurred during the procedure to clip the aneurysm. (7) Status post craniotomy: Status: Acute Code(s): Z98.890 - Other specified postprocedural states Plan: On 05/24/22 for increasing cerebral edema with a 8.6 midline shift and generalized herniation. Post op an MRI showed a large L MCA ischemic stroke. (8) Arterial ischemic stroke, MCA (middle cerebral artery), left, acute: Status: Acute Code(s): I63.512 - Cerebral infarction due to unspecified occlusion or stenosis of left middle cerebral artery Plan: Due to complete occlusion of the L MCA. There was distal reconstruction of the MCA. (9) Acquired skull defect: Status: Acute Code(s): M95.2 - Other acquired deformity of head Plan: Will follow up at for replacement of the bone flap. (10) Global aphasia: Status: Acute Code(s): R47.01 - Aphasia Plan: He understands more than he can speak. Has a limited vocabulary but, has made progress with speech therapy and he will need to continue with ST going forward. (11) Flaccid hemiplegia: Status: Acute Code(s): G81.00 - Flaccid hemiplegia affecting unspecified side (12) Right foot drop: Status: Acute Code(s): M21.371 - Foot drop, right foot (13) Dysphagia: Status: Resolved Code(s): R13.10 - Dysphagia, unspecified (14) Cognitive dysfunction due to stroke: Status: Acute (15) Fecal incontinence: Status: Acute Code(s): R15.9 - Full incontinence of feces Plan: Working on toilet training. (16) Urinary incontinence: Status: Acute Code(s): R32 - Unspecified urinary incontinence Plan: Uses a condom cath at night to keep him dry. Recent UA negative for infection and has not had a urinary tract infection during his time on rehab. (17) Acute blood loss anemia: Status: Resolved Code(s): D62 - Acute posthemorrhagic anemia Plan: The last HGB was 13.9 on 07/16/22. (18) DVT (deep venous thrombosis): Status: Acute Code(s): I82.409 - Acute embolism and thrombosis of unspecified deep veins of unspecified lower extremity Plan: The clot was in the R brachial vein. Would repeat a venous US of the R arm in mid August and if the clot has resolved would DC Eliquis. I suspect he had a PICC at [facility] and this caused the DVT. 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 (20) Presence of externally removable percutaneous endoscopic gastrostomy (PEG) tube: Status: Acute Code(s): Z93.1 - Gastrostomy status Plan: The PEG can now be safely removed because it has been 6 weeks since it was placed. Hopefully they will remove when he is at to replace the bone flap but, if not he can follow up with Dr. Multani, Dr. Barr or Dr. Rodríguez to have it removed. This can be done in the office. (21) Hyponatremia: Status: Acute Code(s): E87.1 - Hypo-osmolality and hyponatremia Plan: Likely due to cerebral salt wasting. Resolved with salt tabs which we have been weaning down. He is currently on only 1GM daily of NACL. Would recheck a BMP in 1-2 weeks and if the sodium is within normal limits would DC the salt tab daily. (22) Hypertension: Status: Chronic Code(s): I10 - Essential (primary) hypertension Plan: Lisinopril was discontinued. He remains on Coreg 3.125 mg BID. BP on the day of DC is 118/82. May be able to DC the Coreg if the BP stays in this range post DC. Plan 1. DC home with family. His sister Gege will be caring for Romeo multimedia authoring specialist and she has had extensive family training prior to DC from rehab. 2. [facility] 3. Follow up with Dt. Moreira. 4. Follow up with surgeon at for replacement of the bone flap. 5. Venous US of JOSE in mid August and if no clot present can DC Eliquis. 6. Repeat a Lipid panel and a liver panel in 4-6 weeks. He has a mild increase in ALT and AP but, less than 2 times the highest normal value and he is asymptomatic. 7. Repeat a BMP in 1-2 weeks and if the Sodium is still WNL would DC the NACL tab and recheck in 1-2 weeks. 8. PEG can be removed at any time now. It has been 6 weeks since it was inserted and can be safely removed. We have not been using it. Romeo is eating well and dysphagia has resolved. 9. Return to [facility] acute rehab if additional tx is needed after replacing the bone flap. Medications at Discharge Home Medications acetaminophen 500 mg tablet (Acetaminophen Pain Relief) 500 mg PO Q6H PRN fever or pain #90 tabs 07/18/22 apixaban 5 mg tablet 5 mg PO BID #60 tabs 07/18/22 atorvastatin 20 mg tablet 20 mg PO QHS #30 tabs 07/18/22 carvedilol 3.125 mg tablet 3.125 mg PO BIDCM #60 tabs 07/18/22 ipratropium bromide 42 mcg (0.06 %) nasal spray 2 spray NASAL BID #1 BOTTLE 07/18/22 menthol-zinc oxide 0.5 %-20.65 % topical ointment (DermaSeptin) See Rx Instructions .Route .COMPLEX #720 grams 07/18/22 sennosides 8.6 mg-docusate sodium 50 mg tablet (Laxative Stool Softener With Senna) 1 tab-cap PO BID #60 tabs 07/18/22 sodium chloride 1,000 mg soluble tablet 1,000 mg PO DAILY #30 tabs 07/18/22 Hospital Course Operations None Procedures - (Modified barium swallow on 06/21/2022.) Summary of Care Provided Minutes Spent on Discharge: 50 Hospital Course: ? ROMEO MARTÍNEZ, is a 36 M YO with no significant PMH and on no prescription medications who presented to the ED at [facility] on 05/22/22 With ANGUIANO and new onset R facial droop and R side weakness.? The RUE weakness had started the preceding evening.?He had been having intermittent ANGUIANO's for months prior to presenting to the ED. Initial blood pressure was 147/96.? Initial NIHSS score was 2 for right facial droop and right upper extremity drift.? Emergent noncontrast CT brain showed a left basal ganglia hematoma measuring 2 cm X 1.4 cm? without mass-effect.? CTA of the head and neck showed a 1.6 cm x 1.9 cm localized hyperdense mass in the left basal ganglion (hematoma) with decreased caliber of the left anterior cerebral artery.? There was a broad necked unruptured L MCA aneurysm.? The ER physician communicated with the cerebral hemorrhage hotline at [facility] and the pt was emergently transferred to [facility] by [facility].? ? There is no FH of cerebral aneurysms.? He was immediately evaluated at [facility] by neurosurgery and was taken to surgery emergently.? Clipping of the aneurysm was attempted but, failed.? Noncontrast CT brain on 05/23/2022 showed hemorrhage in the fourth ventricle with some hydrocephalus and possible L frontal CVA.? There was complete occlusion of the L MCA with distal reconstruction. Followup in 6 hours showed worsening edema and mass-effect with a midline shift of 7 mm.? There was mild generalized herniation.? On 05/24/22 CT head showed a midline shift that had increased up to 8.6 mm and the patient was taken to surgery for craniectomy.? Postoperatively MRI of the brain showed a large left middle cerebral artery ischemic stroke.? CT brain on 05/28/22 was stable with suspected mild petechial hemorrhage.? Antiplatelet therapy with aspirin was started on 05/25/2022 per neurosurgery due to ischemic complication during attempted aneurysm clipping. Post op he remained intubated. While on the ventilator he developed pneumonia and cultures were positive for Klebsiella Aerogenes.? He was treated with appropriate antibiotics. On 05/28/22 he passed a spontaneous breathing trial and was extubated.? He had been intubated for 7 days. During his stay at [facility] he developed a DVT in the R Brachial vein and was started on anticoagulation. ?? ? Significant lab at [facility] included a LDL of 178 and a HGBA1C of 5.5. Mild hyperglycemia was likely due to stress. He was started on a statin and SSI for stress hyperglycemia. He was started on Lisinopril 40 mg and Coreg 3.125 mg BID to manage HTN.? A transthoracic echocardiogram showed a normal left ventricular ejection fraction with no PFO or source of stroke identified.? He was treated with 7 days of Cefepime.? He had a Sheffield catheter which was inserted on 05/25/22 and removed on 05/29/22. A PEG tube was inserted on 06/04/2022. While at [facility] Romeo was seen and evaluated by PT/OT/ST and acute inpt rehab was recommended at [facility]. He was transferred to [facility] acute inpt rehab on 06/07/22 for 3 hours of therapy daily to restore function at or near his level prior to the SAH and LMCA ischemic infarct. NIHSS at presentation to rehab was 16. While on rehab the sodium was low and work up was consistent with cerebral salt wasting. He was started on NACL tabs and the sodium normalized. We have been weaning the salt tabs down and at the time of DC he was on 1,000 mg of oral NACL per day. Romeo had a hemoglobin of 11.8 at presentation to rehab and at the time of discharge his hemoglobin had increased to 13.9. At presentation to rehab the liver panel showed an elevated AST at 52 with the other liver tests being within normal limits. On 07/16/2022 he had a repeat liver panel and the bilirubin and AST were normal but the ALT was elevated at 68, with the highest normal being 61, and the alkaline phosphatase was 146 with the highest normal being 117. The BUN/creatinine ratio is always elevated due to poor fluid intake. He has to be reminded to increase his fluids. He has excellent food intake and his weight has been stable. Blood sugars were initially mildly elevated and hemoglobin A1c was obtained and was normal at 5.5. He will need a repeat liver panel and lipid panel checked as an outpatient in 4 to 6 weeks. He has no complaints of muscle pain on atorvastatin 40 mg p.o. nightly. Romeo is a hard worker and has done amazingly well in therapy. Better than anyone expected at the time of admission. Prior to [facility] Romeo was supervision/set up for eating and required only minimal assistance with grooming. He requires moderate assistance with bathing and moderate assistance with tub/shower transfer. He is standby assist with upper body dressing but maximum assistance with lower body dressing. We able to get him on a 3 in 1 bedside toilet but he remains incontinent of both stool and urine. We have begun a toileting program and put him on the toilet every day after he eats breakfast. He occasionally has a bowel movement on the toilet. He needs to be reminded to bear down to have a bowel movement. At night we are using a condom catheter to keep him dry and protect his skin. He has had no urinary tract infections while in rehab and a urine analysis on 07/17/2022 was negative for infection. The specific gravity is increased at 1.025 because Romeo does not drink enough fluid. Romeo is able to do 11 sit to stands in 30 seconds at contact-guard assist/min assist from the wheelchair. He has ambulated 50 feet with a hemiwalker at contact-guard assist/min assist. We are still wrapping the right lower extremity into dorsiflexion but an AFO has been ordered for him. Therapist is still advancing his right lower extremity but no longer blocking the knee with ambulation. Romeo's family has been very supportive and his sister Gege has quit her job to be Romeo's caregiver. Gege has been coming in everyday for the past 2 weeks for family training. Romeo will be going home at [facility] and will have [facility]. He has an appt scheduled with his primary care provider, Dr. Mario Moreira, scheduled for 07/24/2022 at 10 AM. He has an appointment scheduled at the outpatient [facility] on 07/30/2022 at [address] scan and will follow-up with Dr. Anatoly Das at 12:45 PM. He also has an appointment scheduled with [facility] on 08/02/2022 at 5:30 AM in preparation for replacement of the left cerebral bone flap removed at the time of craniotomy. Physical Exam Const alert and no apparent distress General Appearance: cooperative and well developed HEENT moist oral mucous membranes and oropharynx normal HEENT Narrative: skull defect left cerebrum due to removal of a bone flap at the time of craniotomy. Eyes PERRL and EOMs intact bilaterally Eyes Narrative: No nystagmus. Conjunctiva is clear and there is no discharge from the eye. There is no mattering of the eyelids. Neck supple, no JVD, No nodes and no carotid bruits General: trachea midline Resp normal respiratory effort and clear to auscultation bilaterally Resp Narrative: Airflow is diminished but I believe this is secondary to poor inspiratory effort. Romeo has some difficulty in following some commands and others he can do well. Taking a deep breath is 1 he does not do very well. He is not tachypneic and breathing is not labored. There is no accessory muscle use. Cardio regular rate, regular rhythm, S1 normal heart sound, S2 normal heart sound, no murmurs, no rub and no gallops Cardio Narrative: No ectopy GI normal to inspection, nondistended, normoactive bowel sounds, soft to palpation and non-tender GI Narrative: No guarding with palpation. The PEG tube site has no erythema and no purulent discharge. Extremity no calf tenderness General Extremity: Negative for edema Skin General Skin Exam: no breakdown Rashes: no rashes Wounds: Negative for wounds noted Neuro Neuro Narrative: Mild right facial droop. Flaccid right hemiplegia. Right foot drop. Expressive and receptive aphasia. Decreased sensation right face, right arm and right leg. No ataxia. Neglect is much better than at admission. Dysarthria has significantly improved and I can clearly understand what he is saying and he has good projection of his voice now. Remains incontinent of urine and stool. Psych affect normal, denies homicidal ideation and denies suicidal ideation Appearance: appropriate Weight / BMI Weight Weight: 211 lb 10.3 oz Body Mass Index (BMI) 34.1 ABG / Lab / Microbiology Data Result Diagrams: 07/16/22 05:18 07/16/22 05:18 Microbiology: Microbiology 07/14/22 17:15 Gastric Tube (Gastrostomy) Gram Stain - Final 07/14/22 17:15 Gastric Tube (Gastrostomy) Wound Culture - Final Staphylococcus epidermidis Tricia craft 07/01/22 06:15 Other - Eye Gram Stain - Final 07/01/22 06:15 Other - Eye Eye Culture - Final Staphylococcus epidermidis#2 Staphylococcus epidermidis 07/01/22 06:15 Other - Eye Anaerobic Culture - Final Anaerobic cocci D/C Instructions Discharge Diet: Low fat / Low cholesterol, 4000 mg Sodium Diet and - (small bites, no straws, encourage good fluid intake.....I would like him to drink 50 ounces of water a day......that is 1,500 cc) Weight Bearing Status: Full weight bearing Call your doctor if you observe: Fever of 101 or Higher, Inability to urinate, Inability to have a bowel movement, Shortness of breath, Dizziness, Fainting spells, Chest pain, Increased palpitations (irregular heartbeat), Calf discomfort, Uncontrolled pain and - (any change in behavior such as lethargy, increased agitation, confusion. Nausea/vomiting. Cloudy urine. ) Cleanse incision/area with: - (Clean around the PEG tube with soap and water......if there is increasing redness around the PEG site call the doctor) Catheter: - (Condom cath to a Sheffield bag at night. Remove during the day. ) Drain: Flippin Pending Tests Upon Discharge: none Please Follow Up With: Mario Moreira When: 07/24/22 Meaningful Use Info Meaningful Use Diagnoses (Choose all that apply): Hemorrhagic CVA (Subarachnoid hemorrhage due to leaking/ruptured left MCA aneurysm followed by complete occlusion of the left MCA and ischemic stroke.), Ischemic CVA and VTE CVA Therapy Assessed for PT,OT and/or ST?: Yes Ischemic Stroke Antithrombotic order at d/c?: No Reason antithrombotic not ordered: Medical Contraindication (Going for surgery to replace a cerebral bone flap in the near future. ASA is being held for upcoming surgery. ) Dx of Atrial fib/flutter?: No Anticoagulant at discharge?: Yes Reason anticoagulant not ordered: Treatment not Indicated (The anticoagulant is for DVT ot the RUE and not for AF) Statins at discharge?: Yes Primary Dx Acute Ischemic CVA?: Yes IV tPA ordered during stay?: No Reason IV t-PA not ordered: Medical Contraindication (He had a SAH at the time of the L MCA ischemic stroke. ) VTE Anticoag overlap given w/in hospital stay or rx'd at dc?: No Pt receive overlap for 5 days?: No Reason overlap not ordered, prescribed, or given for 5 days: Treatment Not Indicated (Came to us on Eliquis 10 mg BID and then decreased to 5 mg BID after the loading doses were completed. The Eliquis is for DVT of the R Brachial vein. ) Discharge Plan Admission Admit Date/Time: 06/07/22 16:42 Primary Reason for Your Visit: Debility due to SAH, L MCA stroke, craniectomy. Attending Provider: Kristyn Wallace Primary Care Provider: Mario Moreira Instructions Patient Instructions: Bleeding Brain Aneurysms, Discharge Instructions for Stroke, ED Bladder Infection, Male (Adult), Booklet - Understanding Stroke Additional Instructions / Restrictions: 1. There are 2 kinds of stroke. The most common is an ischemic stroke and this accounts for at least 80% of all strokes. With an ischemic stroke the artery becomes blocked with either clot or plaque and no blood flow gets past the blockage. The brain cells past the blockage do not get blood flow and oxygen and the cells and this causes neurologic deficits. The other kind of stroke is a hemorrhagic stroke where an artery bursts, either due to an aneurysm or to a very elevated BP and you bleed into your brain. When the artery bursts the blood flow to all brain cells distal to the rupture do not get enough blood flow or oxygen and the brain cells and cause neurologic deficits. 2. Romeo had 2 different kinds of stroke. The first stroke was a hemorrhagic stroke due to a ruptured aneurysm. The doctors tried to coil the aneurysm through a catheter to stop it from bleeding. This caused a dissection of the artery which occluded one of the arteries in his brain and he had a ischemic stroke. There were no other aneurysms in the brain when they looked at all the arteries in the head and neck. 3. I have stopped 1 of Romeo's BP medications and his BP is good. He is still on a low dose of a BP medication called Coreg (carvedilol). Oftentimes when people go home their blood pressure changes. Some people are more relaxed and the blood pressure goes down. Other people are more anxious when going home and their blood pressure goes up. I would like to continue Romeo's blood pressure medication for 1 month and if his blood pressure is less than 120/80 at that time I think we should try and stop the Coreg. It would be a good idea to have a BP cuff at home and take Romeo's BP a few times a day at different times of the day to see how it is trending. 4. We are trying to get Romeo to a point where he knows when he has to have a BM and he can get on the toilet rather than being incontinent. This will take some training. Iris taught Romeo how to bear down and which muscles he has to use but, he is not consistently doing this when we put him on the toilet........when Iris and Romeo were in the therapy unit and she was teaching him which muscles to contract he had a BM so this works......we have to keep up with the education/training and I suspect with some more coaching while he is on the toilet to bear down he will be successful at going on the toilet. 5. When urine first came to rehab the sodium in his blood was low. We have had him on salt tablets (also called sodium chloride) and I have been able to decrease the dose to 1 tablet a day. Would recheck the sodium in his blood in 2 to 4 weeks and if the sodium is good I would discontinue the sodium chloride tablets. 6. Romeo is on a blood thinner called Eliquis (also called apixaban). He takes this medication every 12 hours and it is an anticoagulant. This is because he had a blood clot in one of his veins. He will need to stay on this medication until mid August and then he will need another venous US to see if the clot has resolved. 7. Romeo has high cholesterol. This is a risk factor for a strokes. He is on a medication called Atorvastatin (also called Lipitor). This medication helps to control the cholesterol. He will need to have a lipid panel and a liver panel checked in 4-[address] Moreira can order this for you. 8. We have not been using the PEG tube but, it still needs to be flushed regularly. I has been 6 weeks since the PEG was inserted so it is safe to remove it. Please ask the surgeon who is going to replace the bone flap if Romeo can have the PEG removed while he is at . If not then you can follow up with Dr. Multani, Dr. Barr or Dr. Rodríguez here at the [facility] to remove the tube.......this can be done in the office. 9. Romeo has done exceptionally well in therapy.......much better than any of us expected. 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 Your attention to Romeo is truly heartwarming for all of us who work in rehab. If you have any questions are Romeo leaves rehab please do not hesitate to call me. OFFICE: [phone] CELL: [phone] I will send a copy of the discharge instructions to Dr. Moreira and also a copy of the discharge summary. You will also receive a copy of the discharge summary. We will make 2-3 copies so you can take a copy to the surgeon who is going to replace the bone flap. If Romeo needs additional therapy after the flap is replced We would be happy to have him back for a few weeks. Discharge Orders/Prescriptions Prescriptions: New atorvastatin 20 mg Tablet 20 mg PO QHS Qty: 30 0RF carvedilol 3.125 mg Tablet 3.125 mg PO BIDCM Qty: 60 0RF sennosides-docusate sodium [Lax Stool Softener With Senna] 8.6-50 mg tablet 1 tab-cap PO BID Qty: 60 0RF apixaban 5 mg tablet 5 mg PO BID Qty: 60 0RF Rx Instructions: 1 tab every 12 hours. ipratropium bromide 42 mcg (0.06 %) [place],Non-Aerosol 2 spray NASAL BID Qty: 1 0RF DermaSeptin 0.5-20.65 % ointment See Rx Instructions .ROUTE .COMPLEX Qty: 720 6RF Rx Instructions: apply topically to the lorenza-rectal area BID and after BM's sodium chloride 1,000 mg Tablet,Soluble 1,000 mg PO DAILY Qty: 30 0RF acetaminophen [Acetaminophen Pain Relief] 500 mg tablet 500 mg PO Q6H PRN (Reason: fever or pain) Qty: 90 6RF Rx Instructions: 1-2 tabs PO every 6 hours as needed for pain or fever Discontinued acetaminophen [Tylenol] 325 mg Tablet 650 mg feeding tube Q6H atorvastatin 20 mg Tablet 20 mg feeding tube QHS carvedilol 3.125 mg Tablet 3.125 mg feeding tube BID Rx Instructions: must administer with a meal/food lisinopril 40 mg Tablet 40 mg feeding tube DAILY senna-docusate sodium Tablet 2 tab PO BID PRN (Reason: Constipation) Eliquis 5 mg Tablet 10 mg feeding tube BID Referrals / Follow Up: [facility] [Other] - 07/30/22 11:00 am (Ct Scan ) Dr Anatoly Das [Other] - 07/30/22 12:45 pm [facility] [Other] - 08/02/22 5:30 am Mario Moreira DO [Primary Care Provider] - 07/24/22 10:00 am Disposition Disposition (needs filled in before D/C Order can be placed): Home Health Service Charges/Coding Visit Charges Inpatient E&M: 28891 Disch Hosp >30min NIHSS NIHSS 1a. Level of Consciousness: Alert; keenly responsive 1b. LOC Questions: Answers BOTH questions correctly. 1c. LOC Commands: Performs both tasks correctly. 2. Best Gaze: Normal 3. Visual: No visual loss 4. Facial Palsy: Minor paralysis (flattened nasolabial fold, asymmetry on smiling) (Right side) 5a. Left Arm: No drift; arm holds 90 (or 45) degrees for full 10 seconds 5b. Right Arm: No movement 6a. Left Leg: No drift; leg holds 30-degree position for full 5 seconds 6b. Right Leg: No movement 7. Limb Ataxia: Absent 8. Sensory: Vzbm-xh-bbedapke sensory loss; (Right face, right leg, right arm.) 9. Best Language: Severe aphasia; 10. Dysarthria: Normal 11. Extinction and Inattention: Visual, tactile, auditory, spatial, or personal inattention (Tactile) Total: 13 Stroke Questions Stroke Team Activated: No Indicators for Scoring Admitted with or Primary Diagnosis of CVA/Stroke: Yes Hx of CVA/Stroke: No Modified Ferrum Score MRS Score at time of Evaluation: 4-Moderate/severe disability
[2022-07-19 13:30] VITALS: BP 118/82; PULSE 89; RESP 16; TEMP 36.7; O2SAT 96
--- NOTE | 2022-07-19 13:30 | NURSING ---
Family properly demonstrated transfer from bed to w/c for this nurse for patient to be discharged and patient did well. Family verbalized understanding of dc instruct and aware of appointments coming up. Script given for condom cath to sister.
== END 2022-07-19 13:30 | disposition home health service (06) | DRG 56 ==
PROVIDERS: Admitting Provider Internal Medicine; PCP Family Medicine; Visit Provider Internal Medicine
DX: I69.351 Hemiplegia and hemiparesis following cerebral infarction affecting right dominant side (principal); I67.0 Dissection of cerebral arteries, nonruptured; I82.621 Acute embolism and thrombosis of deep veins of right upper extremity; D62 Acute posthemorrhagic anemia; E87.1 Hypo-osmolality and hyponatremia; L89.312 Pressure ulcer of right buttock, stage 2; Z93.1 Gastrostomy status; M43.6 Torticollis; H10.9 Unspecified conjunctivitis; I10 Essential (primary) hypertension; I69.392 Facial weakness following cerebral infarction; I69.319 Unspecified symptoms and signs involving cognitive functions following cerebral infarction; I69.320 Aphasia following cerebral infarction; I69.322 Dysarthria following cerebral infarction; I69.30 Unspecified sequelae of cerebral infarction; M21.371 Foot drop, right foot; R15.9 Full incontinence of feces; Z79.01 Long term (current) use of anticoagulants; R73.9 Hyperglycemia, unspecified; E66.9 Obesity, unspecified; Z79.899 Other long term (current) drug therapy; Z68.39 Body mass index [BMI] 39.0-39.9, adult; R13.10 Dysphagia, unspecified; Z98.890 Other specified postprocedural states; R32 Unspecified urinary incontinence
CPT/HCPCS: 36415; 74230; 80048; 80053; 81001; 83735; 84100; 85014; 85018; 85027; 87070; 87075; 87077; 87186; 87205; 92507; 92523; 92526; 92610; 92611; 96125; 97110; 97112; 97116; 97140; 97163; 97167; 97530; 97535; 97542; 97802; 97803; 99252; A4216; G0463

== ENCOUNTER → 2022-07-24 | Outpatient (CLI) | payer BC, SELFPAY ==
[2022-07-24 10:40] LABS: Anion Gap 7 (5-15); BUN 12 mg/dL (7-18); BUN/Creat Ratio 14.4 RATIO (10-20); Calcium,Total 9.8 mg/dL (8.5-10.1); Chloride 101 mmol/L (98-107); Creatinine, Serum 0.83 mg/dL (0.70-1.30); EST Glomerular Filtration Rate 109 mL/min (>60); Est Glom Filt Rate - Afr Amer 132 mL/min (>60); Glucose 129 mg/dL (74-106); Potassium 4.6 mmol/L (3.5-5.1); Sodium Level 137 mmol/L (136-145)
== END | disposition home or self-care (01) ==
LOC: BFHLAB 09:24
PROVIDERS: PCP Family Medicine; Visit Provider Family Medicine
DX: E87.1 Hypo-osmolality and hyponatremia (principal)
CPT/HCPCS: 36415; 80048

== ENCOUNTER 2022-08-05 16:30 | Inpatient (IN) | payer BC, SELFPAY ==
[2022-08-05 16:50] VITALS: BP 130/91; PULSE 88; RESP 16; TEMP 37.2; O2SAT 99; BMI 34.0
[2022-08-05 19:28] VITALS: BP 131/84; PULSE 84; RESP 16; TEMP 37.1; O2SAT 98
[2022-08-05] MEDS: Ipratropium Bromide 0.06% NASAL SPRAY 2 SPRAY NASAL (21:43)
[2022-08-05] MEDS: Menthol/Lanolin/Calamine/Znox 113 GM Tube 1 APPLIC TOPICAL (21:44)
[2022-08-05] MEDS: Atorvastatin Calcium 20 MG Tablet PO (21:45)
[2022-08-05] MEDS: Acetaminophen 325 MG Tablet 650 MG PO (21:45)
[2022-08-05] MEDS: APIXABAN 5 MG TABLET PO (21:45)
[2022-08-06 01:27] VITALS: BP 128/88; PULSE 86; RESP 16; TEMP 36.9; O2SAT 98
[2022-08-06 05:51] LABS: Absolute Lymphocyte Count 1.65 X10^3/uL (0.83-4.51); Absolute Neutrophil Count 4.8 X10^3/uL (2.0-7.7); Basophil# 0.05 X10^3/uL; Basophil% 0.6 % (0-1); Eosinophil# 0.29 X10^3/uL; Eosinophils% 3.7 % (0-5); Hematocrit 40.3 % (40-54); Lymphocyte # 1.65 X10^3/ul (0.83-4.51); Lymphocyte % 21.1 % (19-41); Mean Corp Hgb Conc 32.3 g/dL (32-36); Mean Corpuscular Hgb 28.3 pg (27.0-32.0); Mean Corpuscular Volume 87.8 fL (80-94); Mean Platelet Vol. 8.4 fl (6.2-12.0); Monocyte# 1.05 X10^3/uL; Monocyte% 13.4 % (0-10); NRBC Flagged by Analyzer 0 % (0-5); Neutrophil # 4.75 X10^3/uL (2.7-7.7); Neutrophil % 60.9 % (47-70); Platelet Count 324 K/mm3 (150-450); RBC Distribution Width CV 12.1 % (11.6-14.6); RBC Distribution Width SD 38.9 fl (35.1-43.9); Red Blood Count 4.59 M/mm3 (4.6-6.2); White Blood Count 7.8 K/mm3 (4.4-11.0)
[2022-08-06 06:23] LABS: ALB/GLOB Ratio 0.8 RATIO (0.9-2.4); AST(SGOT) 26 U/L (15-37); Alanine Aminotransfer ALT/SGPT 72 U/L (16-61); Albumin, Serum 3.1 g/dL (3.2-5.0); Alkaline Phosphatase 148 U/L (45-117); Anion Gap 6 (5-15); BUN 15 mg/dL (7-18); BUN/Creat Ratio 16.3 RATIO (10-20); Calcium,Total 9.2 mg/dL (8.5-10.1); Chloride 100 mmol/L (98-107); Creatinine, Serum 0.92 mg/dL (0.70-1.30); EST Glomerular Filtration Rate 98 mL/min (>60); Est Glom Filt Rate - Afr Amer 118 mL/min (>60); Globulin 4.1 g/dL (2.2-4.2); Glucose 106 mg/dL (74-106); Magnesium 2.2 mg/dL (1.6-2.6); Phosphorus 4.8 mg/dL (2.5-4.9); Potassium 4.1 mmol/L (3.5-5.1); Protein, Total 7.2 g/dL (6.4-8.2); Sodium Level 136 mmol/L (136-145)
[2022-08-06] MEDS: Ipratropium Bromide 0.06% NASAL SPRAY 2 SPRAY NASAL ×2 (08:34→20:42)
[2022-08-06] MEDS: Carvedilol 3.125 MG TABLET PO ×2 (08:34→17:17)
[2022-08-06] MEDS: APIXABAN 5 MG TABLET PO ×2 (08:35→20:42)
[2022-08-06] MEDS: Menthol/Lanolin/Calamine/Znox 113 GM Tube 1 APPLIC TOPICAL ×2 (08:35→20:42)
[2022-08-06 09:50] VITALS: O2SAT 98
[2022-08-06 10:00] VITALS: BP 119/92; PULSE 87; RESP 18; TEMP 36.5; O2SAT 96
--- NOTE | 2022-08-06 10:05 | EX.PCM.HP.RE ---
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 Romeo returned to [facility] and had an elective surgery on 08/01/2022 to replace the bone flap and remove the PEG tube. Romeo's past medical history is significant for hypertension, obesity, hyperlipidemia, incontinence of urine and stool, right upper extremity DVT, chronic anticoagulation with Eliquis for DVT and aphasia. Post op course was unremarkable but, Romeo had declined since being discharged from rehab on 07/19/22. He had been ambulating and he was no longer doing that. His family did not feel that they could care for him at home without further PT/OT. They requested he be transferred from [facility] to [facility] acute rehab and PT/OT at [facility] was in agreement. Romeo was transferred to the acute inpt rehab unit at [facility] on 08/05/22 for 3 hours of therapy daily to restore function at his level prior to the recent cranioplasty to replace the bone flap. Lab at DC from [facility] showed a normal white blood cell count and hemoglobin of 13.4. Platelets were within normal limits. Sodium was 136 and the potassium was 4.1. Creatinine was 0.65 with a BUN of 14. LFTs were normal. Eliquis was restarted prior to discharge. All DC paperwork from [facility] was personally reviewed, including the therapy notes. All lab drawn this morning was personally reviewed. White blood cell count and platelets are within normal limits and the hemoglobin is 13. Sodium was 136 and the potassium was 4.1. BUN is 15 with a creatinine of 0.92. Phosphorus and magnesium are within normal limits. LFTs show an elevated ALT at 72 with a normal AST of 26 and an elevated alkaline phosphatase of 148. Interesting that the ALT and AP were elevated when they were normal at [facility] 1 day prior? [facility] Medical History (Updated 08/12/22 @ 10:[address] Kristyn Wallace, DO) Aphasia as late effect of stroke Arterial ischemic stroke, MCA (middle cerebral artery), left, acute Current use of termination clerk anticoagulation Debility Dissection of cerebral artery DVT (deep venous thrombosis) Fecal incontinence Hemiparesis affecting right side as late effect of cerebrovascular accident Hyperlipidemia Hypertension Ischemic cerebrovascular accident (CVA) Obesity (BMI 30-39.9) Stroke/cerebrovascular accident Subarachnoid hemorrhage Urinary incontinence Home Medications acetaminophen 500 mg tablet (Acetaminophen Pain Relief) 500 mg PO Q6H PRN fever or pain #90 tabs 07/18/22 [Rx Last Taken Unknown] sennosides 8.6 mg-docusate sodium 50 mg tablet (Laxative Stool Softener With Senna) 1 tab-cap PO BID #60 tabs 07/18/22 [Rx Last Taken Unknown] sodium chloride 1,000 mg soluble tablet 1,000 mg PO DAILY #30 tabs 07/18/22 [Rx Last Taken Unknown] acetaminophen 325 mg tablet (Tylenol) 650 mg PO Q4H PRN Pain 08/05/22 [History Last Taken Unknown] apixaban 5 mg tablet 5 mg PO BID Blood clots 08/05/22 [History Last Taken Unknown] atorvastatin 20 mg tablet 20 mg PO QHS cholesterol 08/05/22 [History Last Taken Unknown] carvedilol 3.125 mg tablet 3.125 mg PO BIDCM blood pressure 08/05/22 [History Last Taken Unknown] ipratropium bromide 42 mcg (0.06 %) nasal spray 2 spray NASAL BID airway 08/05/22 [History Last Taken Unknown] menthol 0.44 %-zinc oxide 20.6 % topical ointment (Calmoseptine) 1 applic topical BID redness 08/05/22 [History Last Taken Unknown] menthol-zinc oxide 0.5 %-20.65 % topical ointment (DermaSeptin) See Rx Instructions .ROUTE .COMPLEX redness 08/05/22 [History Last Taken Unknown] oxycodone-acetaminophen 5 mg-325 mg tablet 1 tab PO Q6H PRN Pain 08/05/22 [History Last Taken Unknown] Allergy/AdvReac Type Severity Reaction Status Date / Time No Known Allergies Allergy Verified 05/22/22 08:08 no significant family history Surgical History (Updated 08/12/22 @ 10:[address] Kristyn Wallace DO) Status post aneurysm repair Status post craniectomy Status post craniotomy Social History (Updated 08/12/22 @ 10:[address] Kristyn Wallace DO) adopted: No household members: family housing: house number of children: 0 current occupational status: disabled Smoking Status: Never smoker alcohol intake: never substance use type: does not use ROS Review of Systems ROS Unobtainable: other Details: Limited due to aphasia Constitutional Constitutional: Reports weakness; Denies anorexia, chills or fever(s) Eyes Eyes: Denies change in vision, double vision or eye pain ENT HEENT: Reports nasal discharge; Denies headache(s) Cardiovascular Cardiovascular: Denies chest pain Respiratory/Chest Respiratory/Chest: Denies cough or shortness of breath at rest Gastrointestinal Gastrointestinal: Reports other Details: Chronic fecal incontinence ; Denies abdominal pain, nausea or vomiting Musculoskeletal Musculoskeletal: Reports neck pain Integumentary Integumentary: Reports other Details: He has an incision Left cranium from the craniectomy to replace the bone flap on 08/01/22 ; Denies jaundice or rash Neurologic Neurologic: Reports abnormal speech and weakness; Denies headache(s) or seizures Psychiatric Psychiatric: Reports other; Denies anxiety or depression Endocrine Endocrinology: Denies change in body appearance Hematologic/Lymphatic Hematologic/Lymphatic: Reports easy bleeding and easy bruising Vital Signs Vital Signs Vital Signs: 08/05/22 16:50 08/05/22 18:56 08/05/22 19:28 Temperature 98.9 F 98.8 F Temperature Source Oral Temporal Pulse Rate 88 84 Respiratory Rate 16 16 Respiratory Effort Normal Non-Labored Respiratory Depth Normal Respiratory Pattern Normal Blood Pressure 130/91 H 131/84 H Blood Pressure Mean 104 99 Blood Pressure Source Monitor Monitor Blood Pressure Position Semi-Fowlers Semi-Fowlers Blood Pressure Location Left Arm Left Arm Pulse Ox 99 98 Oxygen Delivery Method Room Air Room Air Room Air 08/05/22 21:45 08/06/22 01:27 08/06/22 09:50 Temperature 98.5 F Temperature Source Temporal Pulse Rate 86 Respiratory Rate 16 Respiratory Effort Normal Non-Labored Respiratory Depth Respiratory Pattern Blood Pressure 128/88 H Blood Pressure Mean 101 Blood Pressure Source Blood Pressure Position Blood Pressure Location Pulse Ox 98 98 Oxygen Delivery Method Room Air Room Air Indicators for Scoring Admitted with or Primary Diagnosis of CVA/Stroke: No (Admitted for debility following left craniectomy to replace bone flap.) Hx of CVA/Stroke: Yes Modified Kenneth Score MRS Score at time of Evaluation: 4-Moderate/severe disability NIHSS NIHSS 1a. Level of Consciousness: Alert; keenly responsive 1b. LOC Questions: Answers BOTH questions correctly. 1c. LOC Commands: Performs both tasks correctly. 2. Best Gaze: Normal 3. Visual: No visual loss 4. Facial Palsy: Minor paralysis (flattened nasolabial fold, asymmetry on smiling) 5a. Left Arm: No drift; arm holds 90 (or 45) degrees for full 10 seconds 5b. Right Arm: No effort against gravity; arm falls 6a. Left Leg: No drift; leg holds 30-degree position for full 5 seconds 6b. Right Leg: Some effort against gravity; 7. Limb Ataxia: Absent 8. Sensory: Yldb-ip-sjwvzxcj sensory loss; 9. Best Language: Bjdx-vq-silreurc aphasia; 10. Dysarthria: Normal 11. Extinction and Inattention: Visual, tactile, auditory, spatial, or personal inattention Total: 9 Stroke Questions Stroke Team Activated: No Physical Exam Const alert and no apparent distress Constitutional Narrative: Lying in bed and his father is at the bedside and he is able to answer some of my questions when Romeo is not. euthymic, pleasant, smiling and tearful. General Appearance: cooperative and well developed HEENT normocephalic HEENT Narrative: There is an incision on the left side of the skull from the recent craniectomy to replace the bone flap. Having rhinorrhea........Atrovent nasal spray was not given at [facility] and Romeo has seasonal allergies. Mouth: dry mucous membranes Eyes PERRL and EOMs intact bilaterally Eyes Narrative: The conjunctiva is clear and he has no discharge from the eyes. There is no mattering of the eyelids. Neck Neck Narrative: He has torticollis of the neck and his head is rotated and side bent to the R. General: trachea midline; Negative for lymphadenopathy Resp normal respiratory effort, normal air movement and clear to auscultation bilaterally Effort and Inspection: Negative for tachypneic Cardio regular rate, regular rhythm, S1 normal heart sound, S2 normal heart sound, no murmurs, no rub and no gallops Cardio Narrative: No ectopy GI normal to inspection, nondistended, normoactive bowel sounds, soft to palpation and non-tender GI Narrative: No guarding with palpation Extremity no calf tenderness General Extremity: Negative for edema Skin No no jaundice Skin Narrative: The incision in the left side of the skull is intact with no discharge, no lorenza-incisional erythema and no significant increased warmth to touch. There is a small amount of edema around the incision. General Skin Exam: Negative for no breakdown Rashes: no rashes Neuro Neuro Narrative: Mild right facial droop. Persistent aphasia but more verbal than at his initial presentation to acute rehab. He is appropriate. Flaccid right upper extremity and right lower extremity with some effort against gravity. Sensory loss on the right side and still with some right-sided neglect. No visual loss. PERRLA and the EOMI Speech: speech abnormal Psych cooperative and denies suicidal ideation Appearance: appropriate Attitude: No agitated Mood & Affect: Negative for depressed, anxious or flat affect Results Lab / Micro Data Result Diagrams: 08/06/22 05:43 08/06/22 05:43 Labs: Laboratory Results - last 24 hr 08/06/22 05:43: WBC 7.8, RBC 4.59 L, Hgb 13.0, Hct 40.3, MCV 87.8, MCH 28.3, MCHC 32.3, RDW Std Deviation 38.9, RDW Coeff of Jordi 12.1, Plt Count 324, MPV 8.4, Immature Gran % (Auto) 0.300, Neut % (Auto) 60.9, Lymph % (Auto) 21.1, Casey % (Auto) 13.4 H, Eos % (Auto) 3.7, Baso % (Auto) 0.6, Absolute Neuts (auto) 4.8, Absolute Lymphs (auto) 1.65, Nucleated RBC % 0 08/06/22 05:43: Sodium 136, Potassium 4.1, Chloride 100, Carbon Dioxide 30.0, Anion Gap 6, BUN 15, Creatinine 0.92, Est GFR (MDRD) Af Amer 118, Est GFR (MDRD) Non-Af 98, BUN/Creatinine Ratio 16.3, Glucose 106, Calcium 9.2, Phosphorus 4.8, Magnesium 2.2, Total Bilirubin 0.40, AST 26, ALT 72 H, Alkaline Phosphatase 148 H, Total Protein 7.2, Albumin 3.1 L, Globulin 4.1, Albumin/Globulin Ratio 0.8 L Assessment & Plan Assessment/Plan (1) Debility: (2) Status post craniectomy: (3) Generalized weakness: (4) Hemiparesis affecting right side as late effect of cerebrovascular accident: (5) Urinary incontinence: (6) Fecal incontinence: (7) Cognitive dysfunction due to stroke: (8) Raymond-inattention: (9) Aphasia as late effect of stroke: (10) Hyperlipidemia: (11) DVT (deep venous thrombosis): (12) Current use of termination clerk anticoagulation: (13) Hypertension: (14) Torticollis, acquired: PLAN: Plan PLAN PT for gait stability OT for ADL's ST for evaluation Analgesics as needed Bowel protocol Fall precautions Assess for Anxiety/Depression GI prophylaxis not necessary at this time. He has no history of peptic ulcer disease and he denies nausea, epigastric pain, vomiting. DVT prophylaxis -he is currently on Eliquis 5 mg p.o. twice daily for treatment of a right upper extremity deep vein thrombosis of the brachial vein. Follow up with Dr. Mario Moreira and neurosurgery at [facility] following DC from [facility] AM lab including CMP, CBC, Mag and Phos-personally reviewed Charges/Coding Visit Charges Inpatient E&M: 16319 Init Hosp L3
--- NOTE | 2022-08-06 10:07 | PCM.RU.PYE ---
Admission Information Primary Diagnosis:: Post stroke debility. Status Changes from Prescreening?: No changes Identified Actual Problem List:: Cognitve Impr/Memory Loss, Bladder Incontinence, Bowel, Incontinence, Mobility Impaired, Self Care Deficit, Ineffective Communication, BP, Hypertension and Alteration-Leisure Activ. Potential Problem List:: DVT, Bleeding, Infection, UTI, Aspiration, Falls, Skin Integrity and Depression Risk of Complications DVT: ABNER Hose and Sequential Compression Device Bleeding: Monitor Lab Values, Nursing to Teach Precautions for anti-coagulation therapy., Wound, if applicable, to be assessed every shift. and Stroke patients assessed for lethargy or change in status. Infection: Clinical Staff to Monitor for S/S of infection: and S/S of infection include fever, redness, warmth, etc. Urinary Tract Infection: Monitor for frequency, burning, discomfort, or incontinence. and Nursing will obtain urine sample for urinalysis and C&S when ordered. Aspiration: Clinical staff will monitor for coughing, drooling, congestion., Speech will evaluate swallowing and dsyphasia. and Nursing will monitor patient swallowing during meals. Falls: Patient will be evaluated for Fall Precautions and Patient will be placed on Fall Precautions as indicated per protocol. Skin Breakdown: Nursing will assess skin daily using assessment tool. and Nursing will place on Skin Breakdown Precautions as indicated. Pain: Clinical staff will assess patient's pain level per protocol., Medications will be given, if needed, and the pain level reassessed. and Other methods: Massage, distraction, decrease stimulus, etc. used PRN. Plan of Care Patient requires physician specializing in physical medicine and rehab oversight to provide close medical supervision of rehab issues including: Pain Management, Sleep Problems, Bowel and Bladder, Medical and co-morbidity Management, DVT prophylaxis, Rehabilitation Leadership and Coordination of treatment team Patient needs Physical Therapy: For a minimum of 1 hour and At least 5 out of 7 days Patient needs Physical Therapy to improve:: Mobility, Strengthening, Transfers, Stretching, ROM, Endurance, Stairs, Gait and Balance Patient needs Occupational Therapy: For a minimum of 1 hour and At least 5 out of 7 days Patient needs Occupational Therapy to improve ADL's incl.: Eating, Grooming, Bathing, Dressing, Toileting, Toilet transfers, Community Reintegration, Higher functioning activities, Household tasks, Adaptive Equipment, Splinting and Other activities as determined Patient requires speech therapy: For a minimum of 1 hour and At least 5 out of 7 days Patient requires speech therapy for: Swallowing, Cognition, Language Skills and Compensatory Strategies Patient requires 24/ Rehabilitation Nursing for: Pain Issues, Identifying and preventing risk factors, Monitoring and reporting current medical conditions, Assisting with ambulation, transfer, and all ADL's, Teaching patients about disease process and medications, Family teaching, Providing safe environment, Bowel and Bladder Issues, Skin integrity and Medication Management Patient needs Manager Of Transportation/ Case Management for: Discharge Planning, Arranging Home Equipment or Services and Family Interventions Patient needs Dietary and Nutrition Services for: Adequate Nutrition, Nutritional Supplements and Nutritional Education Goals Patient will remain: free from falls Patient will perform bed mobility at: MOD I level of assist. Patient will complete transfers from bed to chair at: - (Contact-guard assist/standby assist) Patient will ambulate: 100 feet (With least restrictive device at contact-guard assist on various surfaces.) Patient will complete upper body dressing at: - (Minimal assistance) Patient will complete lower body dressing at: - (Moderate assistance with adaptive equipment as necessary.) Patient will complete toileting at: - (He is incontinent of both stool and urine and this is likely not going to change) Patient will perform bathing at: - (min assist) Patient will complete grooming at: - (Supervision/set up) Patient will achieve: - (1 curb step with least restrictive device at min assist) Patient will have pain level of: of 3 or less Patient's skin will: remain intact Patient will receive: adequate nutrition. Discharge Planning Pt Prognosis for Sig. Practical Improv. w/in Reasonable Time: Good Estimated Length of stay (days): 21 Anticipated D/C Destination: Home w/ family or friends Was Preadmission Assessment Accurate?: Yes
[2022-08-06 11:34] VITALS: BMI 34.0
[2022-08-06 11:41] VITALS: BMI 34.0
[2022-08-06] MEDS: Ensure Plus High Protein 120 ML LIQUID PO ×2 (12:09→17:17)
[2022-08-06 19:34] VITALS: BP 102/68; PULSE 99; RESP 18; TEMP 36.4; O2SAT 95
[2022-08-06] MEDS: oxyCODONE 5 MG Tablet PO (20:41)
[2022-08-06] MEDS: Atorvastatin Calcium 20 MG Tablet PO (20:42)
[2022-08-07] MEDS: Ipratropium Bromide 0.06% NASAL SPRAY 2 SPRAY NASAL ×3 (05:24→21:29)
[2022-08-07 07:33] VITALS: BP 122/85; PULSE 78; RESP 15; TEMP 37.2; O2SAT 97
[2022-08-07] MEDS: APIXABAN 5 MG TABLET PO ×2 (09:06→21:29)
[2022-08-07] MEDS: Carvedilol 3.125 MG TABLET PO ×2 (09:07→15:50)
[2022-08-07] MEDS: Ensure Plus High Protein 120 ML LIQUID PO ×3 (09:07→15:49)
[2022-08-07] MEDS: Menthol/Lanolin/Calamine/Znox 113 GM Tube 1 APPLIC TOPICAL ×2 (09:15→21:31)
[2022-08-07 09:26] VITALS: BMI 34.0
[2022-08-07 19:17] VITALS: BP 118/81; PULSE 89; RESP 18; TEMP 37.3; O2SAT 96
[2022-08-07 21:15] VITALS: O2SAT 95
[2022-08-07] MEDS: Atorvastatin Calcium 20 MG Tablet PO (21:28)
[2022-08-07] MEDS: Senna/Docusate Sodium 1 Tablet 2 TABLET PO (21:29)
[2022-08-08] MEDS: Ipratropium Bromide 0.06% NASAL SPRAY 2 SPRAY NASAL ×3 (05:32→21:28)
[2022-08-08 07:32] VITALS: BP 116/81; PULSE 84; RESP 16; TEMP 36.9; O2SAT 96
[2022-08-08] MEDS: Ensure Plus High Protein 120 ML LIQUID PO ×3 (07:51→16:44)
[2022-08-08] MEDS: Carvedilol 3.125 MG TABLET PO ×2 (07:51→16:44)
[2022-08-08] MEDS: Senna/Docusate Sodium 1 Tablet 2 TABLET PO ×2 (10:07→21:15)
[2022-08-08] MEDS: APIXABAN 5 MG TABLET PO ×2 (10:07→21:15)
[2022-08-08] MEDS: Menthol/Lanolin/Calamine/Znox 113 GM Tube 1 APPLIC TOPICAL ×2 (10:15→21:29)
[2022-08-08 10:49] VITALS: BMI 34.0
--- NOTE | 2022-08-08 12:25 | PN_ITS ---
Subjective Subjective Romeo was seen on team rounds today. His family was present in the room. Afebrile VSS-blood pressure is within goal. Maintaining appropriate oxygen saturation on RA Oral intake is good Discussed with nursing - no problems that need addressed Reviewed the PT/OT/ST notes Medication list reviewed. Romeo is complaining of some pain in the neck......torticollis is improving but, he still has some rotation to the R and side bending to the R. PT is utilizing massage. Romeo denies shortness of breath, chest pain, extremity pain, dysuria and lightheadedness. Objective Data Objective Data Vital Signs: Vital Signs Temp Pulse Resp BP Pulse Ox O2 Del Method 98.5 F 84 16 116/81 H 96 Room Air 08/08/22 07:32 08/08/22 07:32 08/08/22 07:32 08/08/22 07:32 08/08/22 07:32 08/08/22 07:32 Oxygen Delivery Method Room Air Weight: 211 lb 13.828 oz Body Mass Index (BMI) 34.0 Intake & Output: Intake and Output for Last 24 Hours 08/06/22 08/07/22 08/08/22 23:59 23:59 23:59 Intake Total 1590 / 1590 980 / 980 480 / 480 Output Total 250 / 250 400 / 400 350 / 350 Balance 1340 / 1340 580 / 580 130 / 130 Lab / Micro Data Result Diagrams: 08/06/22 05:43 08/06/22 05:43 Physical Exam Const alert and no apparent distress General Appearance: cooperative HEENT normocephalic Eyes PERRL and EOMs intact bilaterally Neck Neck Narrative: He has torticollis of the neck and his head is rotated and side bent to the R. Resp normal respiratory effort, normal air movement and clear to auscultation bilaterally Effort and Inspection: Negative for tachypneic Cardio regular rate, regular rhythm, no murmurs, no rub and no gallops Cardio Narrative: No ectopy GI normal to inspection, nondistended, normoactive bowel sounds, soft to palpation and non-tender GI Narrative: No guarding with palpation Extremity no calf tenderness General Extremity: Negative for edema Skin Skin Narrative: The incision in the left side of the skull is intact with no discharge, no lorenza- incisional erythema and no significant increased warmth to touch. There is a small amount of edema around the incision. General Skin Exam: Negative for no breakdown Rashes: no rashes Assessment & Plan Assessment/Plan (1) Debility: (2) Status post craniectomy: (3) Generalized weakness: (4) Hemiparesis affecting right side as late effect of cerebrovascular accident: (5) Urinary incontinence: (6) Fecal incontinence: (7) Cognitive dysfunction due to stroke: (8) Raymond-inattention: (9) Aphasia as late effect of stroke: (10) Hyperlipidemia: (11) DVT (deep venous thrombosis): (12) Current use of watermelon inspector anticoagulation: (13) Hypertension: (14) Torticollis, acquired: PLAN: Improving with massage. does not look to be in that much discomfort. Has only taking one dose of Oxy since admission and that was on the 21rst. PLAN: Plan 1. Continue therapy 2. Atrovent nasal spray has been restarted and he has less rhinorrhea. He is not coughing. 3. No changes to the drug regimen at this time. 4. Recheck LFTs and a lipid panel prior to discharge. Charges/Coding Visit Charges Inpatient E&M: 77965 Subs Hosp L2
--- NOTE | 2022-08-08 12:45 | CASEMGMT ---
Addendum entered by Fabienne Peter 08/08/22 13:50: Sister requesting transport w/c at DC and a list of respite stay options. SW provided printed list of SNFs and ALs in the area for respite stay options. Original Note: Social Work IDT met with patient, mother and sister then sister via conference call for Team meeting. Discussed patient's progress in PT/OT/ST/SN. Educated to [facility] insurance with [employer] 08/12 and continued stay is not guaranteed with each review. Pt's goal is to return home with family / care. Will ReTeam weekly. SW to continue to follow for DC planning. Fabienne Peter, [employer] ELECT[employer] CONTAINER TESTER
[2022-08-08 19:33] VITALS: BP 120/78; PULSE 78; RESP 16; TEMP 36.6; O2SAT 95
[2022-08-08] MEDS: Atorvastatin Calcium 20 MG Tablet PO (21:14)
[2022-08-08 21:25] VITALS: BMI 34.0
[2022-08-08 22:00] VITALS: PULSE 78; RESP 16; O2SAT 96
[2022-08-09] MEDS: Ipratropium Bromide 0.06% NASAL SPRAY 2 SPRAY NASAL ×3 (05:29→21:25)
[2022-08-09 07:28] VITALS: BP 121/94; PULSE 75; RESP 16; TEMP 36.5; O2SAT 97
[2022-08-09] MEDS: APIXABAN 5 MG TABLET PO ×2 (08:08→21:25)
[2022-08-09] MEDS: Carvedilol 3.125 MG TABLET PO ×2 (08:08→17:37)
[2022-08-09] MEDS: Ensure Plus High Protein 120 ML LIQUID PO ×3 (08:09→17:37)
[2022-08-09] MEDS: Menthol/Lanolin/Calamine/Znox 113 GM Tube 1 APPLIC TOPICAL ×2 (08:11→21:26)
[2022-08-09 16:51] VITALS: BMI 34.0
[2022-08-09] MEDS: Senna/Docusate Sodium 1 Tablet 2 TABLET PO (21:24)
[2022-08-09] MEDS: Atorvastatin Calcium 20 MG Tablet PO (21:24)
[2022-08-09 21:52] VITALS: BP 119/87; PULSE 78; RESP 18; TEMP 37.1; O2SAT 98
[2022-08-10 05:00] VITALS: BMI 34.0
[2022-08-10] MEDS: Ipratropium Bromide 0.06% NASAL SPRAY 2 SPRAY NASAL ×3 (05:30→20:52)
[2022-08-10 07:58] VITALS: BP 110/80; PULSE 72; RESP 16; TEMP 36.6; O2SAT 97
[2022-08-10] MEDS: Carvedilol 3.125 MG TABLET PO ×2 (08:44→16:59)
[2022-08-10] MEDS: Menthol/Lanolin/Calamine/Znox 113 GM Tube 1 APPLIC TOPICAL ×2 (08:44→21:05)
[2022-08-10] MEDS: Ensure Plus High Protein 120 ML LIQUID PO ×2 (08:44→16:59)
[2022-08-10] MEDS: APIXABAN 5 MG TABLET PO ×2 (08:46→20:53)
[2022-08-10] MEDS: Acetaminophen 325 MG Tablet 650 MG PO (12:15)
[2022-08-10 13:26] VITALS: BMI 34.0
[2022-08-10 19:43] VITALS: BP 117/82; PULSE 87; RESP 16; TEMP 37.1; O2SAT 98
[2022-08-10] MEDS: Atorvastatin Calcium 20 MG Tablet PO (20:53)
[2022-08-11 04:58] VITALS: BMI 34.0
[2022-08-11] MEDS: Ipratropium Bromide 0.06% NASAL SPRAY 2 SPRAY NASAL ×3 (05:48→20:55)
[2022-08-11 07:33] VITALS: BP 115/79; PULSE 84; RESP 16; TEMP 36.7; O2SAT 95
[2022-08-11 07:36] VITALS: O2SAT 95
[2022-08-11] MEDS: Menthol/Lanolin/Calamine/Znox 113 GM Tube 1 APPLIC TOPICAL ×2 (07:54→20:57)
[2022-08-11] MEDS: APIXABAN 5 MG TABLET PO ×2 (07:54→20:55)
[2022-08-11] MEDS: Ensure Plus High Protein 120 ML LIQUID PO ×3 (07:54→16:45)
[2022-08-11] MEDS: Carvedilol 3.125 MG TABLET PO ×2 (07:55→16:45)
[2022-08-11 09:29] VITALS: BMI 34.0
[2022-08-11 19:28] VITALS: BP 115/78; PULSE 85; RESP 16; TEMP 37.7; O2SAT 96
[2022-08-11] MEDS: Atorvastatin Calcium 20 MG Tablet PO (20:56)
[2022-08-12] MEDS: Ipratropium Bromide 0.06% NASAL SPRAY 2 SPRAY NASAL ×3 (05:50→21:54)
[2022-08-12 06:18] VITALS: BMI 34.0
[2022-08-12 07:11] VITALS: BP 123/84; PULSE 81; RESP 16; TEMP 36.9; O2SAT 98
[2022-08-12] MEDS: APIXABAN 5 MG TABLET PO ×2 (08:07→21:55)
[2022-08-12] MEDS: Menthol/Lanolin/Calamine/Znox 113 GM Tube 1 APPLIC TOPICAL ×2 (08:07→21:55)
[2022-08-12] MEDS: Carvedilol 3.125 MG TABLET PO ×2 (08:07→17:05)
[2022-08-12] MEDS: Ensure Plus High Protein 120 ML LIQUID PO ×2 (08:07→17:05)
[2022-08-12 17:00] VITALS: BMI 34.0
[2022-08-12 19:35] VITALS: BP 112/80; PULSE 81; RESP 16; TEMP 36.9; O2SAT 98
[2022-08-12] MEDS: Atorvastatin Calcium 20 MG Tablet PO (21:55)
[2022-08-13] MEDS: Ipratropium Bromide 0.06% NASAL SPRAY 2 SPRAY NASAL ×3 (06:13→21:25)
[2022-08-13 08:29] VITALS: BP 112/80; PULSE 82; RESP 18; TEMP 36.6; O2SAT 97
[2022-08-13] MEDS: APIXABAN 5 MG TABLET PO ×2 (09:08)
[2022-08-13] MEDS: Ensure Plus High Protein 120 ML LIQUID PO ×3 (09:08→17:12)
[2022-08-13] MEDS: Carvedilol 3.125 MG TABLET PO ×2 (09:09→17:12)
[2022-08-13] MEDS: Menthol/Lanolin/Calamine/Znox 113 GM Tube 1 APPLIC TOPICAL ×2 (09:15→21:24)
[2022-08-13 15:14] VITALS: BMI 34.0
[2022-08-13 21:15] VITALS: PULSE 84; RESP 18; O2SAT 96
[2022-08-13] MEDS: Atorvastatin Calcium 20 MG Tablet PO (21:25)
[2022-08-13 22:00] VITALS: BP 115/77; PULSE 84; RESP 18; TEMP 37.4; O2SAT 96; BMI 34.0
[2022-08-14 06:00] VITALS: BMI 34.1
[2022-08-14] MEDS: Ipratropium Bromide 0.06% NASAL SPRAY 2 SPRAY NASAL ×3 (06:02→21:21)
[2022-08-14 08:02] VITALS: BP 128/79; PULSE 74; RESP 17; TEMP 36.7; O2SAT 97
[2022-08-14] MEDS: APIXABAN 5 MG TABLET PO ×2 (08:29→21:21)
[2022-08-14] MEDS: Menthol/Lanolin/Calamine/Znox 113 GM Tube 1 APPLIC TOPICAL ×2 (08:29→21:22)
[2022-08-14] MEDS: Ensure Plus High Protein 120 ML LIQUID PO ×3 (08:29→16:07)
[2022-08-14] MEDS: Carvedilol 3.125 MG TABLET PO ×2 (08:29→15:58)
[2022-08-14 10:57] VITALS: BMI 34.1
--- NOTE | 2022-08-14 13:13 | PCM.PN.BLA ---
Progress Note This is a late entry note from 08/12/22......The note was documented on the wrong chart. Romeo has a low-grade increase in temperature occasionally and it usually occurs in the evenings. He has no evidence of infection. Blood pressure is well controlled. Currently he is only taking carvedilol 3.125 mg BID for HTN. Family asked if is able to come off this medication. Will DC while he is in rehab so that I can observe his BP's daily and restart if the BP shoots up. Romeo's only complaint today is neck pain/spasm. Denies shortness of breath, chest pain, lightheadedness, racing heart, painful urination, nausea/vomiting/abdominal pain and calf pain. Physical Exam Const alert Constitutional Narrative: Romeo is pleasant and smiling. He is always cooperative. Neck Neck Narrative: He has trapezius muscle spasms, R>L. He has decrease ROM with cervical rotation L and SB left. The head is side bent to the right although not as much as it was at admission. He has some tenderness to palpation of the R trap. Resp clear to auscultation bilaterally Cardio regular rate, regular rhythm, no murmurs, no rub and no gallops GI normal to inspection, nondistended, normoactive bowel sounds, soft to palpation and non-tender GI Narrative: No guarding with palpation. No suprapubic pain with palpation. Extremity no calf tenderness and no pedal edema Skin General Skin Exam: no breakdown Rashes: no rashes Wound Narrative: The cranial incision is intact with no significant swelling, no lorenza-incisional erythema and no purulent discharge. Psych cooperative, affect normal and activity/motor behavior normal Appearance: grossly normal Assessment & Plan Assessment/Plan (1) Debility: (2) Status post craniectomy: (3) Generalized weakness: (4) Hemiparesis affecting right side as late effect of cerebrovascular accident: (5) Urinary incontinence: (6) Fecal incontinence: (7) Cognitive dysfunction due to stroke: (8) Raymond-inattention: (9) Aphasia as late effect of stroke: (10) Hyperlipidemia: (11) DVT (deep venous thrombosis): (12) Current use of joint terminal attack controller anticoagulation: (13) Hypertension: (14) Torticollis, acquired: PLAN: Plan 1. Continue therapy 2. Add baclofen 5 mg BID for muscle spasms 3. Discuss a topical cream containing muscle relaxers only with the retail pharmacist in the a.m. Visit Charges Inpatient E&M: 94558 Subs Hosp L2
[2022-08-14 21:00] VITALS: BP 120/80; PULSE 78; RESP 18; TEMP 36.9; O2SAT 96; BMI 34.1
[2022-08-14] MEDS: Baclofen 10 MG Tablet 5 MG PO (21:21)
[2022-08-14] MEDS: Atorvastatin Calcium 20 MG Tablet PO (21:22)
--- NOTE | 2022-08-14 22:47 | PCM.PROGNOTE ---
Subjective Subjective Afebrile VSS Maintaining appropriate oxygen saturation on RA Oral intake is good Discussed with nursing - no problems that need addressed Reviewed the PT/OT/ST notes Medication list reviewed. Romeo's only complaint continues to be some stiffness in his neck and some neck discomfort. He continues to hold his head side bent to the right and mildly rotated to the right. It is not as bad as it was at admission. He denies lightheadedness, chest pain, shortness of breath, cough, abdominal pain, dysuria, calf pain and he is sleeping well. Objective Data Objective Data Vital Signs: Vital Signs Temp Pulse Resp BP Pulse Ox O2 Del Method 98.0 F 74 17 128/79 H 97 Room Air 08/14/22 08:02 08/14/22 08:02 08/14/22 08:02 08/14/22 08:02 08/14/22 08:02 08/14/22 08:02 Oxygen Delivery Method Room Air Weight: 212 lb 8.41 oz Body Mass Index (BMI) 34.1 Intake & Output: Intake and Output for Last 24 Hours 08/12/22 08/13/22 08/14/22 23:59 23:59 23:59 Intake Total 1710 / 1710 50 / 50 960 / 960 Output Total 300 / 300 450 / 450 450 / 450 Balance 1410 / 1410 -400 / -400 510 / 510 Lab / Micro Data Result Diagrams: 08/06/22 05:43 08/06/22 05:43 Physical Exam Const alert General Appearance: cooperative Resp clear to auscultation bilaterally Cardio regular rate, regular rhythm, no murmurs and no gallops GI normal to inspection, nondistended, normoactive bowel sounds, soft to palpation and non-tender Extremity no calf tenderness General Extremity: Negative for edema Skin General Skin Exam: no breakdown Rashes: no rashes Wound Narrative: The sutures have been removed and the incision remains intact with no erythema, no swelling and no purulent discharge. Assessment & Plan Assessment/Plan (1) Debility: (2) Status post craniectomy: (3) Generalized weakness: (4) Hemiparesis affecting right side as late effect of cerebrovascular accident: (5) Urinary incontinence: (6) Fecal incontinence: (7) Cognitive dysfunction due to stroke: (8) Ramyond-inattention: (9) Aphasia as late effect of stroke: (10) Hyperlipidemia: (11) DVT (deep venous thrombosis): (12) Current use of oil heaterman anticoagulation: (13) Hypertension: (14) Torticollis, acquired: PLAN: Plan 1. Continue therapy 2. Change baclofen to 5 mg nightly for muscle spasms 3. Prescribe arthritis compounded formula containing baclofen, lidocaine and Voltaren 3 times daily to the trapezius muscles and in the posterior cervical area to help with muscle spasm/pain/torticollis. I am okay with the baclofen at night but it makes him sleepy during the day and I think it affects his cognition. Would like to be able to control the torticollis/muscle spasm/pain with topical medications only. We are far enough away from the intracerebral hemorrhage that he should be able to tolerate a topical nonsteroidal anti-inflammatory without adverse side effects. Charges/Coding Visit Charges Inpatient E&M: 85056 [facility] Hosp L1
--- NOTE | 2022-08-15 02:32 | NURSING ---
REVIEWED AND AGREE WITH Atiya BAR, DOCUMENTATION AND ASSESSMENT CHARTING.
[2022-08-15] MEDS: Ipratropium Bromide 0.06% NASAL SPRAY 2 SPRAY NASAL ×3 (05:55→20:58)
[2022-08-15] MEDS: APIXABAN 5 MG TABLET PO ×2 (07:54→20:59)
[2022-08-15] MEDS: Baclofen 10 MG Tablet 5 MG PO ×2 (07:54→20:59)
[2022-08-15] MEDS: Carvedilol 3.125 MG TABLET PO (07:54)
[2022-08-15] MEDS: Ensure Plus High Protein 120 ML LIQUID PO ×3 (07:55→17:18)
[2022-08-15] MEDS: Menthol/Lanolin/Calamine/Znox 113 GM Tube 1 APPLIC TOPICAL ×2 (07:55→20:20)
[2022-08-15 07:58] VITALS: BP 110/75; PULSE 74; RESP 15; TEMP 36.8; O2SAT 95
[2022-08-15 10:54] VITALS: BMI 34.1
--- NOTE | 2022-08-15 12:37 | CASEMGMT ---
Social Work IDT met with patient, mother, sister Gege, then sister Joan, via conference call for Team meeting. Discussed patient's progress in PT/OT/ST/SN. Educated to [place] CM insurance with [employer] 08/16 and continued stay is not guaranteed with each review. All disciplines reporting pt progressing closer to baseline. Family requesting outpatient therapy at [facility] and IDT agreeable. SW to coordinate outpatient therapy at [facility] PT/OT/ST and a transport w/c at time of DC. Sister, Gege, has scheduled therapy training in preparation for DC home. Will continue to follow. Fabienne Peter, DARIEN REPLACER
[2022-08-15] MEDS: Arthritis Pain Compound 60 CLICK TUBE TOPICAL ×2 (14:53→20:57)
--- NOTE | 2022-08-15 15:33 | PN_ITS ---
Subjective Subjective Romeo was seen on team rounds today. His mother and his Sister Gege were present in the room and his Sister Joan participated by phone. All questions were answered. Afebrile VSS Maintaining appropriate oxygen saturation on RA Oral intake is good Discussed with nursing - no problems that need addressed Reviewed the PT/OT/ST notes - Romeo had a BM on the toilet today and told the OT he could of feel something while he was going. He has walked up to 60 ft and today he was able to do a step. Medication list reviewed. Romeo tells me that his neck still hurts but it is better with Baclofen. The arthritis cream helps. He still has some torticollis and the head is SB R and rotated L at rest. He is restricted ROM with rotation to the R and SB to the left. There is a lot of paracervical spasm in the neck.....amberly on the R. HRRR L - CTA ABD -soft, NT, ND, regular bowel function no calf tenderness with palpation and no edema Incision remains intact with no dehiscence, no erythema and no discharge. Impressions 1. Debility due to recent craniotomy to replace the bone flap from the craniectomy in June for ruptured L MCA aneurysm. 2. aphasia Expressive> receptive. 3. Fecal and urinary incontinence. He was able to have a bowel movement on the toilet today and said that he could feel something. 4. Right upper extremity is flaccid. Right lower extremity is weak but he is ambulating much better now and was able to do 1 step today. 5. He is progressing with speech therapy and the speech therapist discussed using a board so that Romeo could communicate with his family better because he is able to read. 6. Massage to the cervical area and the trapezius muscles BL and gentle stretch ing. Following tx his neck was straight and the chin was on the midline. Will re-evaluate in the AM. Objective Data Objective Data Vital Signs: Vital Signs Temp Pulse Resp BP Pulse Ox O2 Del Method 98.2 F 74 15 110/75 95 Room Air 08/15/22 07:58 08/15/22 07:58 08/15/22 07:58 08/15/22 07:58 08/15/22 07:58 08/15/22 07:58 Oxygen Delivery Method Room Air Weight: 212 lb 8.41 oz Body Mass Index (BMI) 34.1 Intake & Output: Intake and Output for Last 24 Hours 08/13/22 08/14/22 08/15/22 23:59 23:59 23:59 Intake Total 50 / 50 960 / 960 1230 / 1230 Output Total 450 / 450 450 / 450 250 / 250 Balance -400 / -400 510 / 510 980 / 980 Lab / Micro Data Result Diagrams: 08/06/22 05:43 08/06/22 05:43 Charges/Coding Visit Charges Inpatient E&M: 17007 Subs Hosp L2
[2022-08-15 19:14] VITALS: BP 111/76; PULSE 86; RESP 18; TEMP 37.1; O2SAT 98
[2022-08-15] MEDS: Atorvastatin Calcium 20 MG Tablet PO (20:59)
[2022-08-15] MEDS: Senna/Docusate Sodium 1 Tablet 2 TABLET PO (20:59)
[2022-08-16] MEDS: Arthritis Pain Compound 60 CLICK TUBE TOPICAL ×3 (05:17→21:18)
[2022-08-16] MEDS: Ipratropium Bromide 0.06% NASAL SPRAY 2 SPRAY NASAL ×3 (05:17→21:21)
[2022-08-16 07:38] VITALS: BP 117/78; PULSE 69; RESP 15; TEMP 36.5; O2SAT 97
[2022-08-16] MEDS: Ensure Plus High Protein 120 ML LIQUID PO ×3 (08:52→16:57)
[2022-08-16] MEDS: APIXABAN 5 MG TABLET PO ×2 (08:52→21:18)
[2022-08-16] MEDS: Senna/Docusate Sodium 1 Tablet 2 TABLET PO (08:52)
[2022-08-16] MEDS: Menthol/Lanolin/Calamine/Znox 113 GM Tube 1 APPLIC TOPICAL ×2 (08:53→21:18)
[2022-08-16 10:34] VITALS: BMI 34.1
[2022-08-16 19:31] VITALS: BP 112/71; PULSE 80; RESP 16; TEMP 36.7; O2SAT 97
[2022-08-16] MEDS: Baclofen 10 MG Tablet 5 MG PO (21:17)
[2022-08-16] MEDS: Atorvastatin Calcium 20 MG Tablet PO (21:18)
[2022-08-17] MEDS: Arthritis Pain Compound 60 CLICK TUBE TOPICAL ×3 (05:22→21:25)
[2022-08-17] MEDS: Ipratropium Bromide 0.06% NASAL SPRAY 2 SPRAY NASAL ×3 (05:23→21:26)
[2022-08-17 08:05] VITALS: BP 120/83; PULSE 78; RESP 16; TEMP 36.8; O2SAT 94
[2022-08-17] MEDS: Ensure Plus High Protein 120 ML LIQUID PO ×3 (08:09→16:52)
[2022-08-17] MEDS: APIXABAN 5 MG TABLET PO ×2 (08:09→21:26)
[2022-08-17] MEDS: Menthol/Lanolin/Calamine/Znox 113 GM Tube 1 APPLIC TOPICAL ×2 (08:10→21:26)
[2022-08-17 11:06] VITALS: BMI 34.1
[2022-08-17 19:01] VITALS: BP 123/83; PULSE 85; RESP 18; TEMP 36.8; O2SAT 98
[2022-08-17] MEDS: Baclofen 10 MG Tablet 5 MG PO (21:27)
[2022-08-17] MEDS: Atorvastatin Calcium 20 MG Tablet PO (21:29)
[2022-08-18] MEDS: Ipratropium Bromide 0.06% NASAL SPRAY 2 SPRAY NASAL ×3 (05:33→20:49)
[2022-08-18] MEDS: Arthritis Pain Compound 60 CLICK TUBE TOPICAL ×3 (05:34→20:48)
[2022-08-18 07:38] VITALS: BP 111/83; PULSE 72; RESP 15; TEMP 36.5; O2SAT 96
[2022-08-18] MEDS: Ensure Plus High Protein 120 ML LIQUID PO ×2 (08:29→17:24)
[2022-08-18] MEDS: APIXABAN 5 MG TABLET PO ×2 (08:30→20:48)
[2022-08-18] MEDS: Menthol/Lanolin/Calamine/Znox 113 GM Tube 1 APPLIC TOPICAL ×2 (08:30→20:49)
--- NOTE | 2022-08-18 10:30 | NURSING ---
Patient adjusted on his side to relieve pressure to buttocks (right) due to pressure area still there which was present on admit. Approximately 20 minutes later, this nurse went in room and patient had all the pillows thrown on the floor and he was back on his back on buttocks. Educated and readjusted again in bed.
[2022-08-18 13:40] VITALS: BMI 34.1
[2022-08-18 19:31] VITALS: BP 122/82; PULSE 94; RESP 17; TEMP 37; O2SAT 99
[2022-08-18] MEDS: Baclofen 10 MG Tablet 5 MG PO (20:47)
[2022-08-18] MEDS: Atorvastatin Calcium 20 MG Tablet PO (20:47)
[2022-08-19] MEDS: Arthritis Pain Compound 60 CLICK TUBE TOPICAL ×3 (05:06→20:25)
[2022-08-19] MEDS: Ipratropium Bromide 0.06% NASAL SPRAY 2 SPRAY NASAL ×3 (05:07→20:26)
[2022-08-19 07:38] VITALS: BP 119/86; PULSE 77; RESP 16; TEMP 36.3; O2SAT 95
[2022-08-19] MEDS: APIXABAN 5 MG TABLET PO ×2 (08:19→20:26)
[2022-08-19] MEDS: Ensure Plus High Protein 120 ML LIQUID PO ×2 (08:20→16:22)
[2022-08-19] MEDS: Menthol/Lanolin/Calamine/Znox 113 GM Tube 1 APPLIC TOPICAL ×2 (08:22→20:27)
--- NOTE | 2022-08-19 11:51 | PCM.PROGNOTE ---
Subjective Subjective Afebrile VSS-blood pressure has remained within goal with the discontinuation of Coreg. Heart rate is within normal limits. Maintaining appropriate oxygen saturation on RA Oral intake is very good Discussed with nursing - I am told he has an open area on the buttocks now. Reviewed the PT/OT/ST notes Medication list reviewed. Romeo is answering all my questions with the answer a little bit today. Expressive aphasia is worse than the receptive. He does not appear to be in any pain. He is not having labored breathing, he is not coughing and is not restless in the bed. He is smiling and in a good mood. Objective Data Objective Data Vital Signs: Vital Signs Temp Pulse Resp BP Pulse Ox O2 Del Method 97.4 F L 77 16 119/86 H 95 Room Air 08/19/22 07:38 08/19/22 07:38 08/19/22 07:38 08/19/22 07:38 08/19/22 07:38 08/19/22 07:38 Oxygen Delivery Method Room Air Weight: 212 lb 8.41 oz Body Mass Index (BMI) 34.1 Intake & Output: Intake and Output for Last 24 Hours 08/17/22 08/18/22 08/19/22 23:59 23:59 23:59 Intake Total 60 / 60 1520 / 1520 530 / 530 Output Total 500 / 500 750 / 750 200 / 200 Balance -440 / -440 770 / 770 330 / 330 Lab / Micro Data Result Diagrams: 08/06/22 05:43 08/06/22 05:43 Physical Exam Const alert, no apparent distress and well nourished Resp clear to auscultation bilaterally Cardio regular rate, regular rhythm and no gallops GI normal to inspection, nondistended, normoactive bowel sounds, soft to palpation and non-tender GI Narrative: No guarding with palpation Inspection: Negative for abdominal distention Extremity no calf tenderness General Extremity: Negative for edema Skin Rashes: no rashes Wound Narrative: He has an abrasion on the left buttock......more of an abrasion rather than a decub. It is more likely than not due to friction from pulling him up in bed. There is no erythema around the area and it is not swollen. There is an linear eschar present and there is no discharge. The wound is linear. Neuro Neuro Narrative: R arm is still flaccid. He is able to move his R leg forward while ambulating now. Facial droop is still present. He is able to pull himself over onto his R side by grabbing onto the bed rail with his left hand and pulling. He is able to get his shirt on without assist. Psych cooperative and affect normal Psych Narrative: Romeo does not look stressed or depressed. He is always smiling and attempts everything the therapists ask of him. He does not initiate activities on his own. Assessment & Plan Assessment/Plan (1) Debility: (2) Status post craniectomy: (3) Generalized weakness: PLAN: much improved since admission. (4) Hemiparesis affecting right side as late effect of cerebrovascular accident: (5) Urinary incontinence: (6) Fecal incontinence: (7) Cognitive dysfunction due to stroke: (8) Raymond-inattention: (9) Aphasia as late effect of stroke: (10) Hyperlipidemia: (11) DVT (deep venous thrombosis): (12) Current use of correction anticoagulation: (13) Hypertension: (14) Torticollis, acquired: PLAN: better.....he is now able to get his chin to the midline and the muscles of the posterior cervical area and the trapezius muscles are no longer in spasm. Romeo Sister Gege came in for family training today and she was taught therapeutic massage by the physical therapist. Romeo prefers to keep his head SB to the R and rotated to the left........Gege will try and get him to straighten his neck at home and avoid the SB and rotation. PLAN: Plan 1. Continue therapy 2. Plan discharge for this Friday to home with his family. 3. Gege had several questions for me. a. Can Romeo go to a chiropracter to help with his neck......YES b. Should he be put back on an antihypertensive when he is going home because she feels that he might be more stressed. I explained to her that Romeo exhibits no signs of anxiety. Since the stroke he has lost the ability to initiate activity but is able to follow instructions. His blood pressure off Coreg for the past 4 days has ranged from 110/77 to 123/83. I asked her to obtain a BP cuff and start taking Romeo's BP a few times a day and then take the record to his next visit with his PCP. If the systolic is consistently > 130 or the diastolic > 80 she will call me. The goal for Romeo's BP is < 130/80. c. Can Romeo have the US of his R arm to see if the DVT has resolved while he is in rehab. NO but, I did tell her I will give him a requisition to obtain an venous US as an OP following DC from rehab. d. I explained to Gege that she needs to let Romeo do the things he can do for himself to maintain his strength and function or he will decline. She is not to help with the things Romeo is able to do. This was explained by PT as well today. Charges/Coding Visit Charges Inpatient E&M: 66489 Subs Hosp L2
--- NOTE | 2022-08-19 16:22 | CASEMGMT ---
Addendum entered by Fabienne Peter 08/20/22 12:34: Faxed referral to [facility] and sent referral via [facility] to [facility]. Original Note: Social Work SW met with IDT to discuss pt's discharge plan. Pt has progressed with therapy and team feels pt will be ready for discharge on Friday. RAMSEY met with pt sister Gege and discussed discharge plan at length. After discussion and weighing options Gege is agreeable for d/c on Friday. Therapy is recommending continued therapy at [facility] and Gege is agreeable. Pt will need transport wheelchair at time of d/c. SW to arrange for continue therapy and DME. Gege states family Easter gathering is Friday and requesting d/c at 1000 so pt can be home for the holiday with family. IDT updated. Discharge Date: 08/24/22 NEREYDA Conley
[2022-08-19 17:00] VITALS: BMI 34.1
[2022-08-19 19:23] VITALS: BP 121/83; PULSE 66; RESP 14; TEMP 37.1; O2SAT 100
[2022-08-19 20:10] VITALS: PULSE 66; RESP 14; O2SAT 100; BMI 34.1
[2022-08-19] MEDS: Atorvastatin Calcium 20 MG Tablet PO (20:26)
[2022-08-19] MEDS: Baclofen 10 MG Tablet 5 MG PO (20:27)
--- NOTE | 2022-08-20 01:38 | NURSING ---
Reviewed and agree with Atiya BAR's documentation and assessment charting.
[2022-08-20] MEDS: Arthritis Pain Compound 60 CLICK TUBE TOPICAL ×3 (05:48→20:30)
[2022-08-20] MEDS: Ipratropium Bromide 0.06% NASAL SPRAY 2 SPRAY NASAL ×3 (05:48→20:30)
[2022-08-20 07:26] VITALS: BP 110/77; PULSE 66; RESP 15; TEMP 36.4; O2SAT 98
[2022-08-20] MEDS: Menthol/Lanolin/Calamine/Znox 113 GM Tube 1 APPLIC TOPICAL ×2 (08:21→20:31)
[2022-08-20] MEDS: APIXABAN 5 MG TABLET PO ×2 (08:21→20:29)
[2022-08-20] MEDS: Ensure Plus High Protein 120 ML LIQUID PO ×3 (08:21→16:53)
[2022-08-20 13:48] VITALS: BMI 34.1
[2022-08-20] MEDS: Senna/Docusate Sodium 1 Tablet 2 TABLET PO (20:27)
[2022-08-20] MEDS: Baclofen 10 MG Tablet 5 MG PO (20:28)
[2022-08-20] MEDS: Atorvastatin Calcium 20 MG Tablet PO (20:29)
[2022-08-20 22:00] VITALS: BP 114/75; PULSE 86; RESP 18; TEMP 36.8; O2SAT 96
[2022-08-20 22:53] VITALS: BMI 34.1
--- NOTE | 2022-08-21 02:10 | NURSING ---
Reviewed and agree with Syd BAR, documentation and assessment charting.
[2022-08-21 05:32] LABS: Hematocrit 43.5 % (40-54); Hemoglobin 14.2 g/dL (13.0-16.5); Mean Corp Hgb Conc 32.6 g/dL (32-36); Mean Corpuscular Volume 85.6 fL (80-94); Mean Platelet Vol. 8.8 fl (6.2-12.0); Platelet Count 337 K/mm3 (150-450); RBC Distribution Width CV 12.2 % (11.6-14.6); RBC Distribution Width SD 38.4 fl (35.1-43.9); Red Blood Count 5.08 M/mm3 (4.6-6.2)
[2022-08-21] MEDS: Ipratropium Bromide 0.06% NASAL SPRAY 2 SPRAY NASAL ×3 (05:55→21:24)
[2022-08-21] MEDS: Arthritis Pain Compound 60 CLICK TUBE TOPICAL ×3 (05:55→21:24)
[2022-08-21 06:00] LABS: ALB/GLOB Ratio 0.8 RATIO (0.9-2.4); AST(SGOT) 17 U/L (15-37); Alanine Aminotransfer ALT/SGPT 84 U/L (16-61); Albumin, Serum 3.2 g/dL (3.2-5.0); Alkaline Phosphatase 143 U/L (45-117); Anion Gap 3 (5-15); BUN 20 mg/dL (7-18); BUN/Creat Ratio 20.6 RATIO (10-20); Calcium,Total 9.2 mg/dL (8.5-10.1); Chloride 107 mmol/L (98-107); Creatinine, Serum 0.97 mg/dL (0.70-1.30); EST Glomerular Filtration Rate 92 mL/min (>60); Est Glom Filt Rate - Afr Amer 111 mL/min (>60); Estimated Creatinine Clearance 93.18 ml/min; Globulin 3.9 g/dL (2.2-4.2); Glucose 102 mg/dL (74-106); Potassium 4.2 mmol/L (3.5-5.1); Protein, Total 7.1 g/dL (6.4-8.2); Sodium Level 140 mmol/L (136-145)
[2022-08-21 07:58] VITALS: BMI 34.2
[2022-08-21 07:59] VITALS: BP 116/75; PULSE 75; RESP 16; TEMP 36.7; O2SAT 95
[2022-08-21] MEDS: Senna/Docusate Sodium 1 Tablet 2 TABLET PO (08:03)
[2022-08-21] MEDS: APIXABAN 5 MG TABLET PO ×2 (08:03→21:24)
[2022-08-21] MEDS: Ensure Plus High Protein 120 ML LIQUID PO ×3 (08:04→17:38)
[2022-08-21] MEDS: Menthol/Lanolin/Calamine/Znox 113 GM Tube 1 APPLIC TOPICAL ×2 (08:09→21:25)
[2022-08-21 09:03] LABS: Hemoglobin A1c 5.7 % (3.8-5.6)
[2022-08-21 14:36] VITALS: BMI 34.2
[2022-08-21 21:00] VITALS: BP 112/78; PULSE 91; RESP 14; TEMP 37; O2SAT 98; BMI 34.2
[2022-08-21] MEDS: Baclofen 10 MG Tablet 5 MG PO (21:24)
[2022-08-21] MEDS: Atorvastatin Calcium 20 MG Tablet PO (21:24)
[2022-08-22] MEDS: Arthritis Pain Compound 60 CLICK TUBE TOPICAL ×2 (05:24→14:42)
[2022-08-22] MEDS: Ipratropium Bromide 0.06% NASAL SPRAY 2 SPRAY NASAL ×3 (05:24→21:15)
[2022-08-22 07:19] VITALS: BP 124/83; PULSE 69; TEMP 36.4; O2SAT 97
[2022-08-22] MEDS: Menthol/Lanolin/Calamine/Znox 113 GM Tube 1 APPLIC TOPICAL ×2 (08:19→21:16)
[2022-08-22] MEDS: APIXABAN 5 MG TABLET PO ×2 (08:19→21:16)
[2022-08-22] MEDS: Ensure Plus High Protein 120 ML LIQUID PO ×3 (08:19→14:42)
[2022-08-22 10:48] VITALS: BMI 34.2
--- NOTE | 2022-08-22 12:04 | PCM.PROGNOTE ---
Subjective Subjective Romeo was seen on team rounds today. His Sister Gege was present in the room and has been coming in all week for family training. Afebrile VSS-blood pressure has remained within goal 1 week after discontinuing Coreg. Maintaining appropriate oxygen saturation on RA Oral intake is good Discussed with nursing - no problems that need addressed Reviewed the PT/OT/ST notes Medication list reviewed. All labs from 08/21/2022 was personally reviewed. The CBC is normal. The BMP is unremarkable with the exception of an elevated BUN at 20 with a creatinine of 0.97. The BUN/creatinine ratio is 20.6. Hemoglobin A1c is 5.7 which is consistent with glucose intolerance. He is currently on a regular diet. No complaints from Romeo. He appears comfortable and is smiling. Has had a few BM's on the toilet! Remains incontinent of urine. Objective Data Objective Data Vital Signs: Vital Signs Temp Pulse Resp BP Pulse Ox O2 Del Method 97.5 F L 69 14 124/83 H 97 Room Air 08/22/22 07:19 08/22/22 07:19 08/21/22 21:00 08/22/22 07:19 08/22/22 07:19 08/22/22 07:19 Oxygen Delivery Method Room Air Weight: 212 lb 15.465 oz Body Mass Index (BMI) 34.2 Intake & Output: Intake and Output for Last 24 Hours 08/20/22 08/21/22 08/22/22 23:59 23:59 23:59 Intake Total 340 / 340 820 / 820 Output Total 350 / 350 250 / 250 Balance -10 / -10 570 / 570 Lab / Micro Data Result Diagrams: 08/21/22 05:26 08/21/22 05:26 Physical Exam Const alert, oriented x3 and no apparent distress General Appearance: cooperative Eyes PERRL and EOMs intact bilaterally Neck Neck Narrative: more supple than at admission. Still wants to hold his head SB R and rotated L. Therapists have been doing daily massage and taught Gege what to do. Family plans on taking Romeo to a chiropractor after DC and I think this is an excellent idea. Resp normal respiratory effort, normal air movement and clear to auscultation bilaterally Effort and Inspection: Negative for tachypneic or labored Cardio regular rate, regular rhythm, no murmurs, no rub and no gallops GI normal to inspection, nondistended, normoactive bowel sounds, soft to palpation and non-tender GI Narrative: No guarding with palpation. No suprapubic pain. Denies dysuria. Extremity no calf tenderness General Extremity: Negative for edema Skin Rashes: no rashes Wound Narrative: The abrasion on the R buttock is smaller and healing. There is no erythema around the abrasion and there is no purulent drainage. There is a small amount of serosanguineous drainage on the dressing. He denies pain. Neuro Neuro Narrative: Still with facial droop. No drooling. No visual deficits. RUE flaccid. RLE weak but he is ambulating and requiring only minimal assistance with advancing the R LE. Yesterday he ambulated 72'. Can dress his UE's with supervision/st up. Max assist for lower body dressing. He requires only moderate assistance for showering and/bathing now. He is min assist with toilet transfer but total assist with toileting. 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 Continue therapy. 2. the HGBA1C is elevated at 5.7. Romeo is not very mobile due to the stroke and he is in bed a lot. He has glucose intolerance and his wt is gradually increasing. He is on Lipitor but, he is not on a low fat, low salt diet. Will discuss with the certified pharmacy technician changing the diet order and ask that she educate Gege about what Romeo should be eating. 3. Plan DC home Friday. 4. No antihypertensives needed at discharge but his Sister Gege will take his blood pressure at home and keep a record to take to his primary care doctor. Charges/Coding Visit Charges Inpatient E&M: 53268 Subs Hosp L2
--- NOTE | 2022-08-22 12:25 | CASEMGMT ---
Social Work IDT met with patient, sister and mother for Team meeting. Discussed patient's progress in PT/OT/ST/SN. Confirmed DC plan remains home with [email or web address] PT/OT/ST, transport w/c on 08/24. RAMSEY amin Yris is getting w/c shipped to [facility] and will update this worker on arrival. No other issues noted. Plan: DC home with family 08/24, [facility] PT/OT/ST, transport w/c DARIEN [facility]
[2022-08-22] MEDS: Baclofen 10 MG Tablet 5 MG PO (21:16)
[2022-08-22] MEDS: Atorvastatin Calcium 20 MG Tablet PO (21:17)
[2022-08-22 21:48] VITALS: BP 114/76; PULSE 81; RESP 16; TEMP 36.9; O2SAT 97
[2022-08-23] MEDS: Arthritis Pain Compound 60 CLICK TUBE TOPICAL ×3 (05:32→21:27)
[2022-08-23] MEDS: Ipratropium Bromide 0.06% NASAL SPRAY 2 SPRAY NASAL ×3 (05:32→21:26)
[2022-08-23 07:31] VITALS: BP 116/63; PULSE 75; RESP 16; TEMP 36.1; O2SAT 96
[2022-08-23] MEDS: Menthol/Lanolin/Calamine/Znox 113 GM Tube 1 APPLIC TOPICAL ×2 (08:00→21:28)
[2022-08-23] MEDS: APIXABAN 5 MG TABLET PO ×2 (08:00→21:28)
[2022-08-23 09:43] VITALS: BMI 34.2
--- NOTE | 2022-08-23 10:27 | PCM.DC ---
Discharge Instructions Diet Discharge Diet: - (2,000-2,200 calorie diet, carb consistent, low salt and low fat. ) Activity Discharge Activity: Return to Normal Activity, May Not Drive, May Shower and Use Walker (Use hemiwalker.) Weight Bearing Status: Full weight bearing Keep extremity elevated above heart level: Right Arm Dressing / Incision Call your doctor if your incision/area has: Increased Pain/ Swelling, Increased Redness, Foul Smelling Discharge and Swelling at the incision site Call your doctor if you observe: Fever of 101 or Higher, Inability to urinate, Inability to have a bowel movement, Shortness of breath, Dizziness, Fainting spells, Chest pain, Increased palpitations (irregular heartbeat), Calf discomfort, Uncontrolled pain and - (STROKE symptoms: facial droop, slurred speech, inability to get words out, weakness on 1 side of the body and not the other, numbness on 1 side of the body and not the other, inability to maintain your balance sitting or standing, vertigo. ) Suture Line Care: Avoid Pulling/Pushing and Avoid Pinching/Bending Change Dressing in: do not change dressing (No dressing needed on the incision. Change the Mepilex dressing on the abrasion of the R Buttock every 3 days and as needed for soiling) Cleanse incision/area with: Soap & Water and Keep Dressing Clean & Dry Follow Up Care Please Follow Up With: Mario Moreira DO When: 1-2 weeks Test Results: Test results from this visit will be discussed in further detail at your follow-up appointment, if applicable. Pending Tests Upon Discharge: none Discharge Plan Admission Admit Date/Time: 08/05/22 16:30 Primary Reason for Your Visit: Debility post craniotomy to replace bone flap. Attending Provider: Kristyn Wallace Primary Care Provider: Mario Moreira Instructions Additional Instructions / Restrictions: 1. It has been a pleasure getting to see you and your family again. You have done very well in therapy and we all look forward to your great smile. With stroke improvement takes time and is a gradual process with baby step improvement but, You are doing better all the time. I love your positive attitude. 2. Since you do need a significant amount of assistance for certain activities yet and Gege is a small person I would like you to try and lose some weight. Weight loss will also help with keep you off blood pressure medication and help prevent you from having diabetes since it does run in your family. It will also help control the cholesterol to consume a low fat diet. 3. You have a very mild elevation in your liver tests. I suspect this may be related to Atorvastatin. It is not so elevated that I would stop Atorvastatin but, it needs to be monitored every 3 months for the next year and if it continues to increase I would consider changing to another lipid lowering agent. 4. We have been using a compounded cream the pharmacist mixes up to help with the neck pain and muscle spasms. This cream contains a medication for pain control, a muscle relaxer and an anesthetic. Unfortunately insurance usually does not pay for this. I sent a prescription to the retail pharmacy for the cream. If you can not afford the medication you could use Voltaren Gel which is available over the counter at any pharmacy. 5. I am giving you a requisition to get an ultrasound of the R arm to see if the clot is still there or it has resolved. If there is no longer any clot you can stop the Eliquis. 6. Take care Romeo and Karan Coombs to you and your wonderful family. Please do not hesitate to call me with any questions after you leave rehab. I will send Dr. Moreira a copy of my discharge summary so he will know what progress you have made in rehab and some of the things we are still working on. OFFICE: [phone] CELL: [phone] Discharge Orders/Prescriptions Prescriptions: New Arthritis Pain Compound 3 click topical TID Qty: 2 3RF Continued acetaminophen [Acetaminophen Pain Relief] 500 mg tablet 500 mg PO Q6H PRN (Reason: fever or pain) Qty: 90 6RF Rx Instructions: 1-2 tabs PO every 6 hours as needed for pain or fever atorvastatin 20 mg tablet 20 mg PO QHS ipratropium bromide 42 mcg (0.06 %) spray,non-aerosol 2 spray NASAL BID DermaSeptin 0.5-20.65 % ointment See Rx Instructions .ROUTE .COMPLEX Rx Instructions: apply topically to the lorenza-rectal area BID and after BM's apixaban 5 mg tablet 5 mg PO BID Rx Instructions: 1 tab every 12 hours. Discontinued sennosides-docusate sodium [Lax Stool Softener With Senna] 8.6-50 mg tablet 1 tab-cap PO BID Qty: 60 0RF sodium chloride 1,000 mg Tablet,Soluble 1,000 mg PO DAILY Qty: 30 0RF acetaminophen [Tylenol] 325 mg Tablet 650 mg PO Q4H PRN (Reason: Pain) oxycodone-acetaminophen 5-325 mg Tablet 1 tab PO Q6H PRN (Reason: Pain) menthol-zinc oxide [Calmoseptine] 0.44-20.6 % Ointment 1 applic TOPICAL BID carvedilol 3.125 mg tablet 3.125 mg PO BIDCM Other Ambulatory Orders: Venous Duplex US, Unilateral (Routine) Facility: [facility] - Location: [facility] Ordered By: Dr. Kristyn Wallace Referrals / Follow Up: Anatoly Das-Neuro [Other] - 09/17/22 1:00 pm Mario Moreira DO [Primary Care Provider] - Disposition Disposition (needs filled in before D/C Order can be placed): Home, Self Care
--- NOTE | 2022-08-23 11:13 | PCM.DC.SUM ---
Providers Date of Admission: 08/05/22 Date of Discharge: 08/24/22 Primary Care Physician: Dr. Mario Moreira, DO none Reason For Visit: Debility due to craniotomy to replace bone flap Diagnosis Discharge Diagnosis (1) Debility: Status: Acute Code(s): R53.81 - Other malaise Plan: Back to baseline prior to recent craniotomy and is actually been able to improve some things. (2) Status post craniectomy: Status: Inactive Code(s): Z98.890 - Other specified postprocedural states Plan: To replace bone flap from the original craniotomy in May. (3) Generalized weakness: Status: Acute Code(s): R53.1 - Weakness Plan: This has improved since admission to rehab. We will continue outpatient therapy at [facility]. (4) Hemiparesis affecting right side as late effect of cerebrovascular accident: Status: Acute Code(s): I69.351 - Hemiplegia and hemiparesis following cerebral infarction affecting right dominant side Plan: Still with flaccid right upper extremity but he is now able to move the right leg forward with only minimal assistance when ambulating with a hemiwalker now. (5) Urinary incontinence: Status: Chronic Code(s): R32 - Unspecified urinary incontinence Plan: Due to neurogenic bladder which will likely be lifelong since it has persisted this long. (6) Fecal incontinence: Status: Chronic Code(s): R15.9 - Full incontinence of feces Plan: He is now able to have a bowel movement on the toilet sometimes. (7) Cognitive dysfunction due to stroke: Status: Acute Plan: Expressive aphasia is greater than receptive aphasia and Romeo is able to understand more than he can express. 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 Has been on Eliquis for almost 3 months now and will order an outpatient ultrasound of the right upper extremity. If there is no longer any clot would discontinue Eliquis. (12) Current use of fci anticoagulation: Status: Chronic Code(s): Z79.01 - prison (current) use of anticoagulants (13) Hypertension: Status: Chronic Code(s): I10 - Essential (primary) hypertension Plan: Romeo has been gradually weaned off all antihypertensives. His blood pressure is within goal and he is being discharged on no antihypertensives. His Sister Gege will be taking his blood pressure at home and keeping a record to present to Dr. Moreira at his next office visit. Goal for blood pressure is less than 130/80. (14) Torticollis, acquired: Status: Acute Code(s): M43.6 - Torticollis Plan: Some improvement with massage and a compounded pain cream applied to the neck and the upper trapezius muscles. Family plans to take him to a chiropractor and I certainly agree with this. (15) Elevated hemoglobin A1c: Status: Acute Code(s): R73.09 - Other abnormal glucose Plan: Hemoglobin A1c is 5.7% which is just above the normal cutoff. There is a family history of diabetes and Romeo's weight has been increasing. Romeo and his Sister Gege were counseled by the dietitian in a weight loss, carb consistent diet. 2000 to 2200 thalia a day was recommended with carb consistent intake and low-fat, low salt. Losing weight will make it easier for his Family to provide the care he needs. (16) Obesity (BMI 30.0-34.9): Status: Acute Code(s): E66.9 - Obesity, unspecified (17) Abnormal LFTs: Status: Acute Code(s): R79.89 - Other specified abnormal findings of blood chemistry Plan: ALT and alkaline phosphatase are both mildly elevated, less than 1-1/2 times the highest normal results. I suspect this is likely due to the atorvastatin. Would recheck liver enzymes every 3 months x1 year and if the values start to increase would discontinue the statin and consider other treatment for hyperlipidemia. He also needs to have a lipid panel as an outpatient. His last lipid panel at [facility] was in February 2017 and at that time his LDL was 97 with an HDL of 39. Plan 1. Discharge home on 08/24/2022 with outpatient PT/OT/ST at [facility]. The social work therapist has arranged delivery of a transport wheelchair on 08/24/2022. 2. Lipid panel as an OP. 3. Repeat LFT's every 3 months for 1 year and if they continue to trend up would get a US of the liver and consider discontinuing Atorvastatin and replacing it with another lipid lowering agent. 4. Advise weight loss to facilitate ability of family to care for him. Also needs carb consistent diet. HGBA1C is mildly elevated but, there is a + FH of DM and if he continues to gain weight I am fearful he may develop DM. 5. Given a requisition to obtain a venous US of the RUE to determine if DVT has resolved. It has been 3 months since he was placed on Eliquis for a right brachial vein DVT and if it has resolved Eliquis can be discontinued. 6. Gege will monitor Romeo's blood pressures at home and keep a record to take to Dr. Moreira at Romeo's next appointment. Medications at Discharge Home Medications acetaminophen 500 mg tablet (Acetaminophen Pain Relief) 500 mg PO Q6H PRN fever or pain #90 tabs 07/18/22 apixaban 5 mg tablet 5 mg PO BID Blood clots 08/05/22 atorvastatin 20 mg tablet 20 mg PO QHS cholesterol 08/05/22 ipratropium bromide 42 mcg (0.06 %) nasal spray 2 spray NASAL BID airway 08/05/22 menthol-zinc oxide 0.5 %-20.65 % topical ointment (DermaSeptin) See Rx Instructions .ROUTE .COMPLEX redness 08/05/22 Arthritis Pain Compound 3 click topical TID #2 BOTTLES 08/23/22 Hospital Course Operations - (08/01/22 craniotomy to replace the bone flap removed in craniotomy late May for decompression. ) Procedures None Summary of Care Provided Minutes Spent on Discharge: 45 Hospital Course: ? 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 Romeo returned to [facility] and had an elective surgery on 08/01/2022 to replace the bone flap and remove the PEG tube.? Romeo's past medical history is significant for hypertension, obesity, hyperlipidemia, incontinence of urine and stool, right upper extremity DVT, chronic anticoagulation with Eliquis for DVT and aphasia.? Post op course was unremarkable but, Romeo had declined since being discharged from rehab on 07/19/22.? He had been ambulating and he was no longer doing that. His family did not feel that they could care for him at home without further PT/OT.? They requested he be transferred from [facility] to [facility] acute rehab and PT/OT at [facility] was in agreement.? Romeo was transferred to the acute inpt rehab unit at [facility] on 08/05/22 for 3 hours of therapy daily to restore function at his level prior to the recent cranioplasty to replace the bone flap.? Lab at DC from [facility] showed a normal white blood cell count and hemoglobin of 13.4.? Platelets were within normal limits.? Sodium was 136 and the potassium was 4.1.? Creatinine was 0.65 with a BUN of 14.? LFTs were normal.?LFT'S done at discharge from rehab in July were mildly elevated with an ALT of 72 and an alkaline phosphatase of 148. AST and total bilirubin were within normal limits. Eliquis for right upper extremity brachial vein DVT was restarted prior to discharge from [facility].? All DC paperwork from [facility] was personally reviewed, including the therapy notes.? Repeat Lab done while he was on acute rehab shows a normal CBC. Serum sodium is 140 and he is off the salt tablets. Potassium is stable at 4.2. The BUN is elevated at 20 and the creatinine is 0.97 which is within his baseline. Hemoglobin A1c is elevated at 5.7% and Romeo has been gaining weight and has a family history of diabetes mellitus. Bilirubin and AST were normal but the ALT is now 84 and the alkaline phosphatase 143 which is stable. Since the AP and ALT were normal on 06/08/22 I presume the elevations are due to Atorvastatin. They are elevated but, less than 2 X's normal so no need to discontinue atorvastatin at this time. Would recheck a liver panel every 3 months for the next year and if the abnormal LFTs are greater than twice normal would give consideration to changing the lipid-lowering agent. Would also obtain an ultrasound of the liver. Romeo has been gaining weight since his first discharge from acute rehab. The current BMI is 34.4. Would like to see his BMI less than 30 to assist his family with being caring for him and will also help wo keep BP controlled and prevent development of DM II. The HGBA1C is only mildly elevated at 5.7 but, there is a FH of DM II. Both Romeo and Gege received education from the returns clerk about a carb controlled, heart healthy, wt loss diet. Further education as an OP is available if needed. Gege came in for family training several times during Romeo's stay on rehab. We encouraged her to allow Romeo to do the things he is able to do to involve Romeo in his own care and keep him active. As part of the stroke deficit Romeo lacks the motivation to initiate activity on his own. He must be told what to do but, then he happily does it. Romeo did quite well in rehab and is back to ambulating with no LOB. He sometimes requires assistance to advance the R leg with ambulation but, he is progressing toward moving the R leg by himself if given enough time. He is still incontinent of urine but, he is now sometimes able to have a BM on the toilet if you place him on the toilet after breakfast. Romeo was discharged home on 08/24/22 and will continue with OP PT/OT/ST at [facility]. HE will follow up with Dr. Moreira in the next 1-2 weeks. Physical Exam Const alert, no apparent distress and well nourished Constitutional Narrative: Romeo is pleasant and smiling. He is always cooperative. HEENT normocephalic Eyes PERRL and EOMs intact bilaterally Eyes Narrative: The conjunctiva is clear and he has no discharge from the eyes. There is no mattering of the eyelids. Neck Neck Narrative: more supple than at admission. Still wants to hold his head SB R and rotated L. Therapists have been doing daily massage and taught Gege what to do. Family plans on taking Romeo to a chiropractor after DC and I think this is an excellent idea. General: trachea midline; Negative for lymphadenopathy Resp normal respiratory effort, normal air movement and clear to auscultation bilaterally Effort and Inspection: Negative for tachypneic or labored Cardio regular rate, regular rhythm, S1 normal heart sound, S2 normal heart sound, no murmurs, no rub and no gallops Cardio Narrative: No ectopy GI normal to inspection, nondistended, normoactive bowel sounds, soft to palpation and non-tender GI Narrative: No guarding with palpation. No suprapubic pain. Denies dysuria. Extremity no calf tenderness and no pedal edema Skin No no jaundice Skin Narrative: The incision in the left side of the skull is intact with no discharge, no lorenza-incisional erythema and no significant increased warmth to touch. General Skin Exam: no breakdown Rashes: no rashes Wound Narrative: The abrasion on the R buttock is smaller and healing. There is no erythema around the abrasion and there is no purulent drainage. There is a small amount of serosanguineous drainage on the dressing. He denies pain. Neuro Neuro Narrative: Still with facial droop. No drooling. No visual deficits. RUE flaccid. RLE weak but he is ambulating and requiring only minimal assistance with advancing the R LE. Yesterday he ambulated 72'. Can dress his UE's with supervision/st up. Max assist for lower body dressing. He requires only moderate assistance for showering and/bathing now. He is min assist with toilet transfer but total assist with toileting. Speech: speech abnormal Psych cooperative, affect normal and activity/motor behavior normal Psych Narrative: Romeo does not look stressed or depressed. He is always smiling and attempts everything the therapists ask of him. He does not initiate activities on his own. Appearance: grossly normal and appropriate Attitude: No agitated Mood & Affect: Negative for depressed, anxious or flat affect Weight / BMI Weight Weight: 212 lb 15.465 oz Body Mass Index (BMI) 34.2 ABG / Lab / Microbiology Data Result Diagrams: 08/21/22 05:26 08/21/22 05:26 D/C Instructions Discharge Diet: - (2,000-2,200 calorie diet, carb consistent, low salt and low fat. ) Weight Bearing Status: Full weight bearing Keep extremity elevated above heart level: Right Arm Call your doctor if your incision/area has: Increased Pain/ Swelling, Increased Redness, Foul Smelling Discharge and Swelling at the incision site Call your doctor if you observe: Fever of 101 or Higher, Inability to urinate, Inability to have a bowel movement, Shortness of breath, Dizziness, Fainting spells, Chest pain, Increased palpitations (irregular heartbeat), Calf discomfort, Uncontrolled pain and - (STROKE symptoms: facial droop, slurred speech, inability to get words out, weakness on 1 side of the body and not the other, numbness on 1 side of the body and not the other, inability to maintain your balance sitting or standing, vertigo. ) Suture Line Care: Avoid Pulling/Pushing and Avoid Pinching/Bending Cleanse incision/area with: Soap & Water and Keep Dressing Clean & Dry Pending Tests Upon Discharge: none Please Follow Up With: Mario Moreira, DO When: 1-2 weeks Meaningful Use Info Meaningful Use Diagnoses (Choose all that apply): None applicable Discharge Plan Admission Admit Date/Time: 08/05/22 16:30 Primary Reason for Your Visit: Debility post craniotomy to replace bone flap. Attending Provider: Kristyn Wallace Primary Care Provider: Mario Moreira Instructions Additional Instructions / Restrictions: 1. It has been a pleasure getting to see you and your family again. You have done very well in therapy and we all look forward to your great smile. With stroke improvement takes time and is a gradual process with baby step improvement but, You are doing better all the time. I love your positive attitude. 2. Since you do need a significant amount of assistance for certain activities yet and Gege is a small person I would like you to try and lose some weight. Weight loss will also help with keep you off blood pressure medication and help prevent you from having diabetes since it does run in your family. It will also help control the cholesterol to consume a low fat diet. 3. You have a very mild elevation in your liver tests. I suspect this may be related to Atorvastatin. It is not so elevated that I would stop Atorvastatin but, it needs to be monitored every 3 months for the next year and if it continues to increase I would consider changing to another lipid lowering agent. 4. We have been using a compounded cream the pharmacist mixes up to help with the neck pain and muscle spasms. This cream contains a medication for pain control, a muscle relaxer and an anesthetic. Unfortunately insurance usually does not pay for this. I sent a prescription to the retail pharmacy for the cream. If you can not afford the medication you could use Voltaren Gel which is available over the counter at any pharmacy. 5. I am giving you a requisition to get an ultrasound of the R arm to see if the clot is still there or it has resolved. If there is no longer any clot you can stop the Eliquis. 6. Take care Romeo and Karan Matthieuer to you and your wonderful family. Please do not hesitate to call me with any questions after you leave rehab. I will send Dr. Moreira a copy of my discharge summary so he will know what progress you have made in rehab and some of the things we are still working on. OFFICE: [phone] CELL: [phone] Discharge Orders/Prescriptions Prescriptions: New Arthritis Pain Compound 3 click topical TID Qty: 2 3RF Continued acetaminophen [Acetaminophen Pain Relief] 500 mg tablet 500 mg PO Q6H PRN (Reason: fever or pain) Qty: 90 6RF Rx Instructions: 1-2 tabs PO every 6 hours as needed for pain or fever atorvastatin 20 mg tablet 20 mg PO QHS ipratropium bromide 42 mcg (0.06 %) spray,non-aerosol 2 spray NASAL BID DermaSeptin 0.5-20.65 % ointment See Rx Instructions .ROUTE .COMPLEX Rx Instructions: apply topically to the lorenza-rectal area BID and after BM's apixaban 5 mg tablet 5 mg PO BID Rx Instructions: 1 tab every 12 hours. Discontinued sennosides-docusate sodium [Lax Stool Softener With Senna] 8.6-50 mg tablet 1 tab-cap PO BID Qty: 60 0RF sodium chloride 1,000 mg Tablet,Soluble 1,000 mg PO DAILY Qty: 30 0RF acetaminophen [Tylenol] 325 mg Tablet 650 mg PO Q4H PRN (Reason: Pain) oxycodone-acetaminophen 5-325 mg Tablet 1 tab PO Q6H PRN (Reason: Pain) menthol-zinc oxide [Calmoseptine] 0.44-20.6 % Ointment 1 applic TOPICAL BID carvedilol 3.125 mg tablet 3.125 mg PO BIDCM Other Ambulatory Orders: Venous Duplex US, Unilateral (Routine) [facility] Location: [facility] Ordered By: Dr. Kristyn Wallace Referrals / Follow Up: Anatoly Das-Neuro [Other] - 09/17/22 1:00 pm Mario Moreira DO [Primary Care Provider] - Disposition Disposition (needs filled in before D/C Order can be placed): Home, Self Care Charges/Coding Visit Charges Inpatient E&M: 24275 Disch Hosp >30min
[2022-08-23 20:12] VITALS: BP 119/81; PULSE 92; RESP 18; TEMP 36.7; O2SAT 96
[2022-08-23] MEDS: Atorvastatin Calcium 20 MG Tablet PO (21:28)
[2022-08-23] MEDS: Baclofen 10 MG Tablet 5 MG PO (21:28)
[2022-08-24] MEDS: Arthritis Pain Compound 60 CLICK TUBE TOPICAL (05:40)
[2022-08-24] MEDS: Ipratropium Bromide 0.06% NASAL SPRAY 2 SPRAY NASAL (05:40)
[2022-08-24 07:32] VITALS: BP 113/79; PULSE 75; RESP 16; TEMP 36.7; O2SAT 99
[2022-08-24 08:40] VITALS: BMI 34.2
[2022-08-24] MEDS: APIXABAN 5 MG TABLET PO (09:15)
[2022-08-24] MEDS: Menthol/Lanolin/Calamine/Znox 113 GM Tube 1 APPLIC TOPICAL (09:28)
[2022-08-24 10:15] VITALS: BP 113/79; PULSE 88; RESP 18; TEMP 36.6; O2SAT 99
--- NOTE | 2022-08-24 10:15 | NURSING ---
Patient discharged home with family. Sister and patient verbalized understanding to dc instruct and family will make follow up PCP appointment.
== END 2022-08-24 10:15 | disposition home or self-care (01) | DRG 57 ==
PROVIDERS: Admitting Provider Internal Medicine; PCP Family Medicine; Visit Provider Internal Medicine
DX: I69.351 Hemiplegia and hemiparesis following cerebral infarction affecting right dominant side (principal); E66.9 Obesity, unspecified; I69.319 Unspecified symptoms and signs involving cognitive functions following cerebral infarction; M43.6 Torticollis; E78.5 Hyperlipidemia, unspecified; I10 Essential (primary) hypertension; I69.320 Aphasia following cerebral infarction; R15.9 Full incontinence of feces; Z79.01 Long term (current) use of anticoagulants; Z68.34 Body mass index [BMI] 34.0-34.9, adult; N31.9 Neuromuscular dysfunction of bladder, unspecified; Z79.899 Other long term (current) drug therapy; R32 Unspecified urinary incontinence; Z86.718 Personal history of other venous thrombosis and embolism; S30.810D Abrasion of lower back and pelvis, subsequent encounter; X58.XXXD Exposure to other specified factors, subsequent encounter
CPT/HCPCS: 36415; 80053; 83036; 83735; 84100; 85025; 85027; 92507; 92523; 97110; 97112; 97116; 97140; 97162; 97166; 97530; 97535; 97802; 97803

== ENCOUNTER → 2022-09-02 | Outpatient (CLI) | payer BC, SELFPAY ==
--- NOTE | 2022-09-02 09:43 | VDUE_ITS ---
Reason For Study: DVT Rt brachial vein 3 months prior Right Proximal Right jugular vein is spontaneous, widely patent, phasic, with no intraluminal echogenicity noted. Right subclavian vein is spontaneous, widely patent, phasic, with no intraluminal echogenicity noted. Right Lower Arm Right radial vein is compressible. Right ulnar vein is compressible. Right Arm Right axillary vein is spontaneous, patent, phasic, competent, compressible and demonstrates augmentation. Right brachial vein is compressible. Right cephalic vein is compressible. Right basilic vein is compressible. Patient Safety Preliminary report to PCP: Harish. VL/Venous Duplex US, Unilateral Interpretation Summary Deep veins of the right upper extremity are patent and compressible segmentally . There is no evidence of deep vein thrombosis. Superficial veins of the right upper extremity are patent and compressible segm entally. There is no evidence of superficial vein thrombosis. Ordering Physician: Kristyn Wallace Referring Physician: Mario Moreira Performed By: Angelika Martines RVT ???
--- NOTE | 2022-09-03 10:56 | PCM.PN.BLA ---
Progress Note Romeo had a venous US of the R arm yesterday and it is negative for clot. I called Gege and told her that Romeo can discontinue the Eliquis now. She told me that Romeo is now letting them know when he has to use the restroom now......more often than not. He is being more verbal.
== END | disposition home or self-care (01) ==
LOC: CVS 09:42
PROVIDERS: PCP Family Medicine; Referring Provider Internal Medicine; Visit Provider Internal Medicine
DX: Z03.89 Encounter for observation for other suspected diseases and conditions ruled out (principal); Z79.01 Long term (current) use of anticoagulants
CPT/HCPCS: 93971

== ENCOUNTER → 2022-10-19 | Outpatient (CLI) | payer BC, SELFPAY ==
[2022-10-19 09:20] LABS: Cholesterol 194 mg/dL (200); High Density Lipoprotein 38 mg/dL; Triglycerides 144 mg/dL; Very Low Density Lipoprotein 29 mg/dL (5-40)
== END | disposition home or self-care (01) ==
LOC: LAB 08:04
PROVIDERS: PCP Family Medicine; Referring Provider Family Medicine; Visit Provider Family Medicine
DX: Z00.00 Encounter for general adult medical examination without abnormal findings (principal)
CPT/HCPCS: 36415; 80061

== ENCOUNTER 2022-12-14 03:38 | Emergency (ER) | payer BC, SELFPAY ==
[2022-12-14 03:39] VITALS: BP 111/85; PULSE 83; RESP 18; TEMP 36.8; O2SAT 98; BMI 35.3
--- NOTE | 2022-12-14 03:55 | CT_ITS ---
We are attempting to reach an attending provider to discuss findings. An addendum with communication details will be sent when the communication is complete. EXAM: CT ABDOMEN AND PELVIS WITH INTRAVENOUS CONTRAST CLINICAL INDICATION: upper abd pain, n/v TECHNIQUE: Helically acquired images were obtained of the abdomen and pelvis with intravenous contrast. This CT exam was performed using one or more of the following dose reduction techniques: automated exposure control, adjustment of the mA and/or kV according to patient size, and/or use of iterative reconstruction technique. CONTRAST: IV 100mL Isovue-370 RADIATION DOSE: Total DLP: 1434.55 mGy-cm. COMPARISON: No relevant prior studies available. FINDINGS: LOWER THORAX: Dependent atelectasis noted at both lung bases. Wedge-shaped focus of groundglass opacity noted laterally within the lingula, suspicious for small pulmonary infarction. No pleural effusion. No coronary artery calcification is visualized. No significant pericardial effusion. ABDOMEN: LIVER: Unremarkable. Homogeneous. No focal mass. GALLBLADDER AND BILE DUCTS: Absent gallbladder. No biliary ductal dilatation. PANCREAS: Unremarkable. No focal cystic or solid mass. SPLEEN: Unremarkable. Normal size without focal cystic or solid mass. ADRENALS: Unremarkable. No nodules. KIDNEYS AND URETERS: Normal size kidneys with symmetric nephrograms. Small simple renal cysts which require no follow-up. No hydronephrosis or obstructing ureteral stone. STOMACH AND BOWEL: Unremarkable. No stomach or bowel distention. No focal inflammatory change. PELVIS: APPENDIX: Absent. BLADDER: Urinary bladder is nearly empty. REPRODUCTIVE: Unremarkable as visualized. No mass. ABDOMEN and PELVIS: INTRAPERITONEAL SPACE: Unremarkable. No ascites or other fluid collection. No free air. BONES/JOINTS: Lower lumbar degenerative disc space narrowing with broad-based annular bulges and surrounding posterior osteophytes. No acute osseous abnormality. No suspicious lytic or blastic abnormality. SOFT TISSUES: Small-moderate bilateral fat-filled inguinal hernias are present. Psoas muscles are symmetric. VASCULATURE: Even though motion artifact is present, a tubular filling defect is seen within the right middle lobe pulmonary artery and extending into its medial segmental branch. Additional branching filling defect noted within a posterior basilar segmental branch of the right lower lobe pulmonary artery, extending into subsegmental branches. On the left, hypodense thrombus is noted within segmental and subsegmental branches of the left lower lobe pulmonary artery. No findings of right ventricular strain. LYMPH NODES: A few small pericecal lymph nodes are present but these do not fulfill the size criteria for mesenteric adenitis. No para-aortic adenopathy. Additional scattered tiny lymph nodes are seen within these jejunal mesentery. CT/Abdomen/Pelvis W IV Cont ONLY IMPRESSION: 1. Findings of pulmonary thromboembolic disease identified within the right middle lobe and both lower lobes. No right ventricular strain. 2. No acute intra-abdominal abnormality identified. Nonstandard communication protocol initiated. Electronically Signed: Luis Jimenez MD at 5:43 EDT ,
--- NOTE | 2022-12-14 03:56 | ED.VIS.GI ---
HPI HPI - GI History of Present Illness Chief Complaint: Abd Pain Informant: patient Narrative Narrative: Patient with 1.5 hours of upper abdominal pain, nausea, dry heaving. Woke him up in the middle the night. He was sweaty. He states his abdomen is not hurting him anymore. Family concerned, he has a history of a stroke from a subarachnoid hemorrhage/ruptured cerebral aneurysm that was clipped, he is at baseline neurologically. History of cholecystectomy and appendectomy, some of the history is from the patient but most is from family. [facility] Medical History (Updated 12/14/22 @ 06:[address] Armen Hsieh MD) Aphasia as late effect of stroke Arterial ischemic stroke, MCA (middle cerebral artery), left, acute Current use of snf anticoagulation Debility Dissection of cerebral artery DVT (deep venous thrombosis) Fecal incontinence Generalized weakness Hemiparesis affecting right side as late effect of cerebrovascular accident Hyperlipidemia Hypertension Ischemic cerebrovascular accident (CVA) Obesity (BMI 30-39.9) Stroke/cerebrovascular accident Subarachnoid hemorrhage Urinary incontinence Home Medications acetaminophen 500 mg tablet (Acetaminophen Pain Relief) 500 mg PO Q6H PRN fever or pain #90 tabs 07/18/22 [Rx Last Taken Unknown] apixaban 5 mg tablet 5 mg PO BID Blood clots 08/05/22 [History Last Taken Unknown] atorvastatin 20 mg tablet 20 mg PO QHS cholesterol 08/05/22 [History Last Taken Unknown] ipratropium bromide 42 mcg (0.06 %) nasal spray 2 spray NASAL BID airway 08/05/22 [History Last Taken Unknown] menthol-zinc oxide 0.5 %-20.65 % topical ointment (DermaSeptin) See Rx Instructions .ROUTE .COMPLEX redness 08/05/22 [History Last Taken Unknown] Arthritis Pain Compound 3 click topical TID #2 BOTTLES 08/23/22 [Rx Last Taken Unknown] apixaban 5 mg (74 tabs) tablets in a dose pack (Eliquis DVT-PE Treat 30D Start) 5 mg PO BID #74 tabs 12/14/22 [Rx Last Taken Unknown] dicyclomine 10 mg capsule 20 mg (2 x 10 mg) PO Q6H PRN PRN abdominal pain #20 CAPSULES 12/14/22 [Rx Last Taken Unknown] ondansetron 4 mg disintegrating tablet 8 mg (2 x 4 mg) PO Q8H PRN PRN Nausea #20 tabs 12/14/22 [Rx Last Taken Unknown] Allergy/AdvReac Type Severity Reaction Status Date / Time No Known Allergies Allergy Verified 12/14/22 03:41 Surgical History (Updated 12/14/22 @ 03:[address] Armen Hsieh MD) History of appendectomy History of cholecystectomy Status post aneurysm repair Status post craniectomy Status post craniotomy Social History adopted: No household members: family housing: house number of children: 0 current occupational status: disabled Smoking Status: Never smoker alcohol intake: never substance use type: does not use ROS ROS ED Constitutional Constitutional ED: Reports sweats; Denies chills or fever(s) Eyes Eyes: Denies change in vision ENT ENT ED: Denies sore throat Cardiovascular Cardiovascular: Denies chest pain or palpitations Respiratory/Chest Respiratory/Chest: Denies cough or dyspnea Gastrointestinal Gastrointestinal: Reports abdominal pain, nausea and vomiting; Denies diarrhea Genitourinary Genitourinary ED: Denies dysuria or hematuria Musculoskeletal Musculoskeletal: Denies back pain or neck pain Integumentary Denies abscess or rash Neurologic Neurologic: Reports as per HPI and weakness; Denies headache(s) Psychiatric Psychiatric: Denies anxiety or suicidal thoughts EXAM Physical Exam Const Vital Signs: 12/14/22 03:39 Temperature 98.2 F Temperature Source Temporal Pulse Rate 83 Respiratory Rate 18 Blood Pressure 111/85 H Blood Pressure Mean 93 Pulse Ox 98 Oxygen Delivery Method Room Air Positive well nourished and well developed General Appearance ED: well developed and NAD HEENT Reports moist mucous membranes normocephalic and atraumatic Eyes PERRL and EOMs intact bilaterally Neck full ROM and supple Resp normal respiratory effort and clear to auscultation bilaterally Cardio regular rate, regular rhythm and no murmurs Rate: Negative for tachycardic GI GI Narrative: No distention. Subjectively tender throughout, nonfocal. No objective tenderness or wincing/guarding or rebound tenderness. Normal inspection no Mal[place] sign or Waller Fuentes sign. Auscultation: normoactive bowel sounds Palpation: soft Back/Spine no CVA tenderness General Back: other FROM Extremity normal to inspection General Extremety ED: Negative for edema, pulses abnormal or tenderness General Extremity: Negative for edema or pulses abnormal Neuro CN's II-XII intact bilaterally Neuro Narrative: Weak throughout right side worse in the arm than the leg, some trouble speaking, at baseline according to family. Sensorium / Orientation: awake and alert Skin no rashes or lesions noted and no wounds MDM MDM MDM Narrative Medical decision making narrative: Patient difficult to evaluate given his history of cognitive dysfunction from his stroke from subarachnoid hemorrhage, family in agreement. Subjectively tender diffusely with vomiting, which is apparently unusual for him. Labs obtained he does have a leukocytosis with a leftward trend/shift, no bandemia, and the rest of his labs are unremarkable including urinalysis. Sent him for CT of the abdomen/pelvis with IV contrast, bowel obstruction and differential as is multiple causes of intestinal pain, pancreatitis ruled out with normal lipase, hernias, etc. I reviewed the images of the CT as well as the radiologist's report, and I discussed with the radiologist and agree with him. Basically the abdomen/pelvis is unremarkable for anything acute, but incidentally he has luminal defects in branches of pulmonary arteries in both lower lobes, and radiology was able to confirm that there is no sign of any right heart strain. In discussing with the patient and family, he had a history of blood clots in the right upper extremity due to it being paralyzed, a couple months ago he had a negative ultrasound showing resolution of the clot and so his Eliquis was discontinued, and he no longer is on it. Given this, and the fact that we already gave him contrast for CT abdomen/pelvis, I am not obtaining an emergent CTA, however we have enough information with his normal vital signs, pulse ox 98% on room air, lack of any pulmonary symptoms even, and lack of any right heart strain that I think it would be reasonable to simply anticoagulate him and have him follow-up regarding this. Regarding his abdomen/pelvis, he was treated here with IV fluids, Zofran, dicyclomine. He felt better and rested the majority of the rest of his stay without any vomiting. Likely functional cause of his abdominal pain, constipation is a possibility as well as infectious gastroenteritis. Supportive care advised for now close a patient follow-up, he was given a 1.5 mg/kg subcutaneous injection of Lovenox anticoagulate him now, and that we will give them the day to get his Eliquis and start that tomorrow morning. Also given prescriptions for Zofran and dicyclomine to use as needed, we discussed reasons to return they are comfortable with that plan of following up. History & Record Review Discussion w/independent historian: Patient and Family Lab Data Attestation: I reviewed the patient's lab results. Labs: Laboratory Results - last 24 hr 12/14/22 12/14/22 04:12 04:28 WBC 15.1 H RBC 5.50 Hgb 14.9 Hct 46.0 MCV 83.6 MCH 27.1 MCHC 32.4 RDW Std Deviation 40.9 RDW Coeff of Jordi 13.4 Plt Count 325 MPV 8.7 Immature Gran % (Auto) 0.300 Neut % (Auto) 81.1 H Lymph % (Auto) 11.4 L [place] % (Auto) 5.4 Eos % (Auto) 1.3 Baso % (Auto) 0.5 Absolute Neuts (auto) 12.3 H Absolute Lymphs (auto) 1.72 Nucleated RBC % 0 Sodium 139 Potassium 4.2 Chloride 106 Carbon Dioxide 28.0 Anion Gap 5 BUN 15 Creatinine 1.03 Estim Creat Clear Calc 86.89 Est GFR (MDRD) Af Amer 103 Est GFR (MDRD) Non-Af 85 BUN/Creatinine Ratio 14.6 Glucose 147 H Calcium 9.4 Total Bilirubin 0.40 AST 12 L ALT 38 Alkaline Phosphatase 139 H Total Protein 7.9 Albumin 3.5 Globulin 4.4 H Albumin/Globulin Ratio 0.8 L Lipase 39 Urine Color Yellow Urine Clarity Clear Urine pH 5.0 Ur Specific [place] 1.030 Urine Protein 30 H Urine Glucose (UA) Normal Urine Ketones 5 H Urine Occult Blood Negative Urine Nitrite Negative Urine Bilirubin Negative Urine Urobilinogen 1 H Ur Leukocyte Esterase 25 H Urine RBC 0-5 SEEN Urine WBC 0 SEEN Ur Squamous Epith Cells 0 SEEN Urine Bacteria 1+ Urine Mucus 1+ Radiography Diagnostic Testing: Clinical Impression(s) from Imaging Studies Abdomen/Pelvis CT 12/14/22 03:55 IMPRESSION: 1. Findings of pulmonary thromboembolic disease identified within the right middle lobe and both lower lobes. No right ventricular strain. 2. No acute intra-abdominal abnormality identified. Nonstandard communication protocol initiated. Electronically Signed: Luis Jimenez MD at 5:43 EDT , ADDENDUM: 12/14/22 0602 IMPRESSION: 1. Findings of pulmonary thromboembolic disease identified within the right middle lobe and both lower lobes. No right ventricular strain. 2. No acute intra-abdominal abnormality identified. Nonstandard communication protocol initiated. N.B. : The above Results were Read Back by Luis Jimenez MD to Armen Hsieh MD, and understanding confirmed on 12/14/2022 05:56:02 (ET). Electronically Signed: Luis Jimenez MD at 5:43 EDT , Discharge Plan Triage Chief Complaint: Abd Pain ED Provider: Armen Hsieh Dx/Rx/DC Orders Clinical Impression: Abdominal pain, diffuse, Pulmonary embolism, Vomiting Instructions: Embolism Pulmonary Dc, ED Vomiting (Adult) Prescriptions: New Eliquis DVT-PE Treat 30D Start 5 mg (74 tabs) tablets,dose pack 5 mg PO BID Qty: 74 0RF Rx Instructions: use as directed dicyclomine 10 mg capsule 20 mg PO Q6H PRN PRN (Reason: abdominal pain) Qty: 20 0RF ondansetron [ondansetron] 4 mg tablet,disintegrating 8 mg PO Q8H PRN PRN (Reason: Nausea) Qty: 20 0RF No Action acetaminophen [Acetaminophen Pain Relief] 500 mg tablet 500 mg PO Q6H PRN (Reason: fever or pain) Qty: 90 6RF Rx Instructions: 1-2 tabs PO every 6 hours as needed for pain or fever atorvastatin 20 mg tablet 20 mg PO QHS ipratropium bromide 42 mcg (0.06 %) spray,non-aerosol 2 spray NASAL BID DermaSeptin 0.5-20.65 % ointment See Rx Instructions .ROUTE .COMPLEX Rx Instructions: apply topically to the lorenza-rectal area BID and after BM's apixaban 5 mg tablet 5 mg PO BID Rx Instructions: 1 tab every 12 hours. Arthritis Pain Compound 3 click topical TID Qty: 2 3RF Primary Care Provider: Mario Moreira Referrals: Mario Moreira, DO [Primary Care Provider] - As soon as possible (call Friday for an appt) Activity Restrictions/Additional Instructions: Start Eliquis tomorrow morning, 12/15 Disposition Disposition: Home, Self Care
[2022-12-14] MEDS: Dicyclomine 10 MG Capsule 20 MG PO (04:14)
[2022-12-14] MEDS: Ondansetron 4 MG/2 ML Vial IV (04:14)
[2022-12-14] MEDS: 0.9% Normal Saline 1,000 ML 15 ML IV (04:15)
[2022-12-14 04:18] LABS: Absolute Lymphocyte Count 1.72 X10^3/uL (0.83-4.51); Absolute Neutrophil Count 12.3 X10^3/uL (2.0-7.7); Basophil# 0.07 X10^3/uL; Basophil% 0.5 % (0-1); Eosinophils% 1.3 % (0-5); Hemoglobin 14.9 g/dL (13.0-16.5); Lymphocyte # 1.72 X10^3/ul (0.83-4.51); Lymphocyte % 11.4 % (19-41); Mean Corp Hgb Conc 32.4 g/dL (32-36); Mean Corpuscular Hgb 27.1 pg (27.0-32.0); Mean Corpuscular Volume 83.6 fL (80-94); Mean Platelet Vol. 8.7 fl (6.2-12.0); Monocyte# 0.81 X10^3/uL; Monocyte% 5.4 % (0-10); NRBC Flagged by Analyzer 0 % (0-5); Neutrophil # 12.26 X10^3/uL (2.7-7.7); Neutrophil % 81.1 % (47-70); Platelet Count 325 K/mm3 (150-450); RBC Distribution Width CV 13.4 % (11.6-14.6); RBC Distribution Width SD 40.9 fl (35.1-43.9); White Blood Count 15.1 K/mm3 (4.4-11.0)
[2022-12-14 04:37] LABS: Color, Urine Yellow (Yellow); Glucose, Dipstick Normal (Normal); Ketone-Dipstick 5 mg/dl (Negative); Leukocyte Esterase-Dipstick 25 /ul (Negative); Nitrite-Dipstick Negative (Negative); Occult Blood-Urine Negative /ul (Negative); Protein-Dipstick 30 mg/dl (Negative); Squamous Epithelial Cells - UA 0 SEEN /hpf (0-5); Urine Bilirubin Dipstick Negative (Negative); Urine Clarity Clear (Clear); Urine Urobilinogen 1 mg/dl (Normal); White Blood Cells 0 SEEN /hpf (0-5)
[2022-12-14 04:47] LABS: Bacteria 1+ /hpf (None Seen); Mucous, Urine 1+ /hpf (<or=2+); Red Blood Cells-Urine 0-5 SEEN /hpf (0-5)
[2022-12-14 04:53] LABS: ALB/GLOB Ratio 0.8 RATIO (0.9-2.4); AST(SGOT) 12 U/L (15-37); Alanine Aminotransfer ALT/SGPT 38 U/L (16-61); Albumin, Serum 3.5 g/dL (3.2-5.0); Alkaline Phosphatase 139 U/L (45-117); Anion Gap 5 (5-15); BUN 15 mg/dL (7-18); BUN/Creat Ratio 14.6 RATIO (10-20); Calcium,Total 9.4 mg/dL (8.5-10.1); Chloride 106 mmol/L (98-107); Creatinine, Serum 1.03 mg/dL (0.70-1.30); EST Glomerular Filtration Rate 85 mL/min (>60); Est Glom Filt Rate - Afr Amer 103 mL/min (>60); Estimated Creatinine Clearance 86.89 ml/min; Globulin 4.4 g/dL (2.2-4.2); Glucose 147 mg/dL (74-106); Lipase 39 U/L (13-75); Potassium 4.2 mmol/L (3.5-5.1); Protein, Total 7.9 g/dL (6.4-8.2); Sodium Level 139 mmol/L (136-145)
[2022-12-14] MEDS: Enoxaparin 150 MG/ML Syringe SC (06:13)
== END 2022-12-14 06:34 | disposition home or self-care (01) ==
PROVIDERS: Emergency Provider Emergency Medicine; PCP Family Medicine; Visit Provider Emergency Medicine
DX: R10.84 Generalized abdominal pain (principal); I69.351 Hemiplegia and hemiparesis following cerebral infarction affecting right dominant side; I26.99 Other pulmonary embolism without acute cor pulmonale; R11.10 Vomiting, unspecified; I69.320 Aphasia following cerebral infarction; I10 Essential (primary) hypertension; E78.5 Hyperlipidemia, unspecified; Z90.49 Acquired absence of other specified parts of digestive tract; Z79.899 Other long term (current) drug therapy
CPT/HCPCS: 74177; 80053; 81001; 83690; 85025; 96372; 96374; 99283; J7030; Q9967; A4216; J2405

== ENCOUNTER 2023-02-12 10:30 | Outpatient (RCR) | payer BC, SELFPAY ==
--- NOTE | 2022-08-26 16:50 | HP.OTEVAL_ITS ---
Patient's Visit Information ROMEO MARTÍNEZ is a 36 year old M, referred to Occupational Therapy by Dr. Kristyn Wallace DO, with a diagnosis of acquired skull defect, cerebral aneurysm rupture. Date of Evaluation: 08/26/22 Occupational Therapist: Natalia Chen - Subjective Lives with family and two sisters. Discharged from inpatient rehab 08/24/22. Lives in [place]. Arrived with sister Gege who provided information and is caregiving for Romeo at home. ADL's: able to don/doff shirt independently, toileting incontient completely, max assist for lower body help. Bathing - bed bath, patient able to help with stomach and right arm. They have a sliding tub transfer bench that he uses for bathing. Eating - regular diet, able to use utensils and drink from an open cup (sometimes difficulty telling if fork or spoon). 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 Drove independently. equipment: give ruddy sling for R hand, wheelchair, tub bench, kyalene cane, gait belt, hospital bed (electric), R AFO, scoop plate and bowls. home set-up: lives with parents and two sisters, ramp to enter, first floor set-up. - ROM ROM Comments: R side: no active range of motion noted. Some involuntary movements on the right side. 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 Disoriented when at [facility] hospital. - Transfers Transfers: Able to do stand pivot transfers with about moderate assistance with kaylene cane and gait belt. - Quick DASH-Disab of Arm,Shoulder& Hand Quick DASH Score: 61.3625 - Goals Goal:: Patient will demonstrate increased active range of motion of right upper extremity, evidenced by ability to palpate muscle contraction of any arm muscle on at least 5 different occasions. Goal:: Patient will demonstrate improved bimanual skills, evidenced by ability to use right arm as helper arm to stabilizer materials/containers 75% of the time. Goal:: Patient will improve visual attention to right side evidenced by attending to right side with mobility or seated work with less than 2 verbal cues on at least 3 separate occasions. Goal:: Patient will improve LB dressing independence, evidenced by ability to thread L LE and pull up pants without assistance by d/c. Goal:: Patient will participate in novel cognitive activity/game and provide teachback on a different date with less than 2 verbal cues. - Rehabilitation General Assessment: Arrived with sister after recently being discharged from [facility] for L CVA resulting in right-sided hemiparesis. Romeo presents in a wheelchair with no active movement of the right side. He has varying sensation in the right side as well. He has some difficulty managing secretions, cognitive deficits, right visual neglect, and complete bowel/bladder incontinen ce as well. He requires around the clock assistance for care. He does not need any equipment at this time. He intact passive range of motion in R arm up to 90 degrees shoulder flexion/abduction before he reports disomfort. No need for splinting R hand at this time. His right shoulder has begun to sublux and he is at risk for further subluxation and decreased range of motion due to lack of mobility. He would benefit from skilled occupational therapy to provide neuro re-education to improve right sided function, improve independence with ADL's, and improve independence with functional transfers. Rehabilitation Potential: Fair - Anticipated Interventions A/AAROM/PROM, Strengthening, Joint Protection/Energy Conservation, Fine Motor Coord/Jaguar, Neuro Reeducation, Sensory Stimulation, Visual/Perceptual Skills, Caregiver Training, Home Program Other Interventions: e-stim, mirror therapy - Visit Plan Frequency: 2x /Week Duration: 3 Months General Plan: 2x/week for 12 weeks - awaiting speech and PT evaluations to coordinate visits TEXT: Thank you for the opportunity to evaluate your patient. For Medicare and Medicare HMO plans, please review the plan of care and approve it. It will need to be FAXED BACK to us at [phone] for Medicare purposes. Please let me know if there are questions or concerns regarding this plan of care. Physician Signature: Date:
--- NOTE | 2022-08-28 14:02 | HP.PTEVAL_ITS ---
Patient's Visit Information ANAND MARTÍNEZ is a 36 year old M referred to Physical Therapy by Dr. Kristyn Wallace DO with a diagnosis of CVA, R hemiparesis. Date of Evaluation: 08/28/22 Physical Therapist: Fabian Conrad PT, ATC - Visit Plan Frequency: 2-3x /Week Duration: 4-6 Weeks Plan: R LE stretching and strengthening, core stab ex's, balance and proprio ex's, gait training, nustep, and HEP - Subjective CVA: 05/22/22. Pt was having surgery at the time secondary to an aneurysm when he had a stroke, which left him with speech deficits and R hemiparesis. 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 No prior Hx of CVA. Pt reports no deficits prior to having the surgery. Pt does not have any stairs he needs to negotiate at the home. Pt lives with with family including his mother and sister that help to take care of him. Pt feels weak in his R leg. Pt has been attempting to walk with the use of a hemiwalker but continues to have difficulty with advancing his R LE. Pt notes his R LE is pretty numb throughout. Pt is not in pain today. - Objective Neuro: R LE is numb to light touch. L LE sensation is WNL to light touch. ROM: B LE's are WNL with PROM. MMT: R LE 0/5 throughout. L LE is grossly 5/5 throughout. Gait: Pt is not able to ambulate at this time without assist. Pn needs help with progressing R LE. Transfers: Pt is able to perform sit to stand transfers with use of 1 UE and CGA - Balance/Special Test Scores Lower Extremity Functional Score: 7 - Goals Goal 1:: Increase R LE strength x 1 grade to aid with improving ease with ambulation Goal Time Frame: 4-6 Weeks Goal 2:: Pt will be able to ambulate 100 feet without help of propelling R LE to aid with I ambulation Goal Time Frame: 4-6 Weeks Goal 3:: Increase core strength x 1 grade to aid with ambulation Goal Time Frame: 4-6 Weeks Goal 4:: I with HEP Goal Time Frame: 4-6 Weeks - Rehabilitation Potential Physical Therapy Diagnosis: Pt has R LE weakness, difficulty with transfers, and inability to ambulate secondary to CVA Rehabilitation Potential: Good - Anticipated Interventions Patient/Client Instruction: Educate patient on: Condition, Plan of Care For the Purpose of:: To improve self management Therapeutic Exercise to Include: Strength training, Endurance training, Balance training, Flexibilty training, Gait and locomotor training, Dynamic Lumbar Stabilization For the Purpose of:: To increase ROM, To improve muscle performance and motor function, To improve balance Thank you for the opportunity to evaluate your patient. For Medicare and Medicare HMO plans, please review the plan of care and approve it. It will need to be FAXED BACK to us at [phone] for Medicare purposes. For Medicare only, by signing this I certify the plan of care. Please let me know if there are questions or concerns regarding this plan of care. Physician Signature: Date:
--- NOTE | 2022-08-28 16:59 | HP.SP.EV_ITS ---
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 The patient is fully alert and oriented consistently. Convergent naming w/ 5/12 accuracy independently, improving to 11/12 w/ cues. Completing 1 step commands w/ 90% accuracy when given extra time to process and execute, 100% w/ min cues. Confrontation naming w/ up to 60% accuracy this date, ranging from 40-60% t/o the week. Greatly benefits from initial phoneme cueing to assist w/ word retrieval. Able to read to himself and select the correct word to complete a sentence w/ 84% accuracy. Reading comprehension skills are greater than verbal expression skills. This patient requires continued skilled ST intervention as an outpatient following discharge to address remaining deficits in expressive language, and cognitive function. Extensive family education has taken place w/ sister and mother who will be this patient's primary caregivers upon discharge. Provided family w/ a packet of materials to work on at home outside of planned OP ST sessions. PT ADMITTED TO [facility] FOR SURGERY THEREFORE TWO INPATIENT REHAB ADMISSIONS. 07/18/22: Pt has participated in [address] intervention targeting expressive/receptive aphasia, oral apraxia and oropharyngeal dysphagia. Pt able to named up to 14/25 pictures independently (average 11-12). Answering complex/comparison ?s w/ 86-100% accuracy. Executing 1 step commands w/ 80% accuracy when given extra time to process and revise executions, increased to 100% w/ cues and [employer]ELOPER model. Pt's diet has been advanced to regular textures/thin liquids and is tolerating it well. Pt continues to require verbal/tactile cues for oral motor ROM exercises d/t apraxia. 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 This resulting in dx of acquired skull defect, cognitive dysfunction, craniotomy, hemiparesis, aphasia, and dysphagia. Romeo's sister and mom were present during session to help serve as historian - he also lives with them. Family reporting expressive language is still a barrier for Romeo along with cognitive skills such as problem solving and memory tasks. Romeo has completed a total of 7 weeks in inpatient rehab at [facility]. See above for speech therapy d/c summaries during both admissions and recommendations for co nt'd therapy. Family reporting his dysphagia is managed with a regular and thin liquid diet with no complications at this time - PEG has been removed. Pt will be receiving OP speech, OT, and PT at [facility]. 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 Smoking Status: Never smoker - Diagnosis Diagnosis: Moderate Expressive Aphasia; Cognitive Dysfunction - Pain Is pain an issue with your current prescribed condition?: No - Personal Preferred language: Telugu History - Pain Is pain an issue with your current prescribed condition?: No Patient Allergies - Allergies Allergies No Known Allergies Allergy (Verified 05/22/22 08:08) Subjective Dysphagia - Symptoms Reported Symptoms/Problems with: Drooling - Current Diet Solids Current Diet: Regular Other: Upgraded during hospital rehab - has been tolerating at home. - Current Diet Liquids Current Liquids: Thin Other: Upgraded during hospital rehab - has been tolerating at home. BDAE-3 - [place] Diagnostic Aphasia Examination BDAE-3 Administered: Yes BDAE-3: The BDAE-3 assesses communication in the areas of: conversational and expository speech, auditory comprehension, oral expression, reading and writing. Date: 08/28/22 - Rating Scale Profile of speech character Articulation Agility: 4 Detail: Facility at phoneme and syllable level ranges from 1 being unable to form speech sounds to 7 being never impaired Phrase length: 5 Detail: Longest occasional uninterrupted word runs Grammatical form: 5 Detail: Variety of grammatical constructions; use of grammatical mophemes: 1=nosyntactic word groupings ranging to 7 being normal range of syntax; normal facility with grammatical words Melodic Line (Prosody): 4 Detail: 1=word b word or aprosodic speech ranging to 7 being normal speech m elody Paraphasia in running speech: 5 Detail: 1 present in evrey utterance ranging to 7 s absent Word finding relative to fluency: 4 Detail: 1 is fluent but empty speech ranging to 7 as output primarily content words - Summary Profile Auditory Comprehension Basic word discrimination Percentile: 30 Commands Percentile: 20 Complex Ideational Material Percentile: 50 - Summary Profile Recitation Recitation automatized sequences Percentile: 100 - Summary Profile Repitition Words Percentile: 100 Sentences Percentile: 60 - Summary Profile Naming Responsive Naming Percentile: 100 [place] Naming Test Percentile: 55 Special Categories Percentile: 25 - Summary Profile Reading Matching cases and scripts: 100 Number matchin Picture - word matchin Oral word readin Oral sentence readin Oral sentence comprehension: 100 Sentences/Paragraph comprehension: 70 - Summary Profile Writing Form: to be continued Letter choice: to be continued Motor faclility: to be continued Primer words: to be continued Regular phonics: to be continued Common irregular words: to be continued Written picture naming: to be continued Narrative writing: to be continued - BDAE-3 Comments Free Conversation - Verbatim Transcript when asked what kind of work he was doing before --- Um. A. Oh what was it called? [cue given] [employer]. [cue] Parts calls. [cue] Pretty much just that.. - Verbatim Transcript when asked what he likes to do for fun --- Not sure. [cue] Singing.. - Verbatim Transcript when asked what happened to bring him here --- Had an aneurysm. [cue] At home. [cue] Had a stroke on the right side to make it fall down. Picture Description 'Karin [employer]' Verbatim Transcript --- [There's two] a boy and a girl. Holding a j-jar...candy. Looks like there's some spilling water onto the floor. [cue pointing to stool] Broken leg. The hand is...oh no. [cued name for stool] It's wobbling. Going to tip over. [cue] He's probably going to fall down. You already said about the broken handle (points to sink). [cue pointing to mom] Br-or uh what is that, mother, looks like he's sinking. [cue what is she doing] Not sure....drying dishes. Item Analysis Commands: 2 components (2/2 followed); 3 components (2/3 followed); 5 components (1/5 followed). Yes/No: Vidal questions with 75% acc. Auditory Comprehension following a short-story: 75% acc. Automatic Sentences: VALDEZ = 100%; Counting 1-21 = 100% (did count through to 25 demonstrating difficulty following directions). Repetition: Single Words = 100%; Sentences = 3 words was 100% and 9 words was 33% with Pt repeating only last 3 words. Naming: Responsive (What do we tell time with?) = 100%; Confrontation = 53% acc (octopus = sea turtle; [place] = chipmunk; palette = chipewwa which is a paraphasia for easel). Naming in Special Categories: Letters = 25% acc; Numbers = 100% acc; Colors = 75% acc. Basic Symbol Recognition: performing with 100% acc across matching cases and scripts, matching fingers to khmer numbers, and khmer numbers to dot patterns. Word Identification with Matching Picture: 50% acc. Reading: Single words = 60% acc benefiting from min visual and semantic cue to improve to 80%; Sentences = between 0-50% acc pending sentence length. Reading Comprehension = between 75 and 100% acc Plan - Plan Plan: Will recommend Pt for weekly outpatient speech therapy intervention address moderate expressive and receptive aphasia. Pt would benefit from skilled intervention to target fluency of expressive language. He would benefit from circumlocution training and immediate feedback to identify instances of paraphasia. Without skilled intervention Pt is at risk for difficulty returning to work at a level deemed appropriate for answering phone calls or communicating basic, medical, emergent, social wants & needs, and interacting with family/friends at home, during social interactions, and at work. 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 - Recommendations Treatment Warranted: Yes Treatment Warranted: Receptive/ Expressive Language, Dysphagia, Cognition Comment: Dysphagia PRN - Progress Prognosis: Good - Frequency Frequency: 2x /Week Additional (Frequency): 60 min. sessions for 2x/week for 12 weeks Duration: 3 Months - Goals that are Established Determination:: Goals will be added/modified as deemed necessary and appropriate. Therapy will be discontinued when results of re-evaluation indicate therapy is no longer needed or lack of progress has been documented. - Goal #1-5 Goal #1: Romeo will generate 3 sentences when given a target verb following WHO+verb+WHAT structure with 60% acc independently across 3 consecutively measured sessions. Goal #2: Romeo will generate 3 additional pieces of information answering WHERE/WHEN/WHY of one self-created WHO+verb+WHAT sentence with 2 of the 3 questions answered independently across 3 consecutively measured sessions. Goal #3: Romeo will demonstrate use of word finding strategies to complete biographical information and complex convergent/divergent naming tasks with 70% acc independently across 3 measured opportunities to improve word retrieval. Goal #4: Romeo will answer comprehension questions with 80% acc independently following either an orally presented short-story or reading it himself across 3 measured opportunities. Goal #5: Romeo will follow basic 3 or more component directions with 70% acc with min A verbal cues across 3 measured sessions. - Goal #6-10 Goal #6: Romeo will participate in cognitive testing to determine areas of need since inpatient admission. Education - Patient has Indicated that the Following Identified Educational Needs: None The Patient has indicated that they have no educational or learning abilities that may effect their care.: Yes - Patient Instruction Patient Education: Diagnosis, Treatment Plan, Goals Person Taught: Patient, Family Teaching Method: Discussion, Demonstration Response to teaching: Return demonstration, Verbalize understanding, Reinforcement needed
--- NOTE | 2022-09-26 14:02 | HP.PTREVAL ---
Dr. Kristyn Wallace, DO, It has been my pleasure to treat ANAND MARTÍNEZ over the last 8 visits for CVA, R hemiparesis. Please see the progress note below for an update on the physical therapy plan of care! Subjective: Pt reports no pain today. Feels like he is really improving. Objective/Function: Pt is now able to ambulate 170 feet with hemiwalker and no LE assist until feeling fatigued and needing to rest. L LE MMT is grossly 1/5 throughout. Pt still requires A with R LE while performing sit to stand transfers. Pt has made significant progress at this time but requires much needed PT for improvements in functional mobility at home and in community. Plan Plan: Continue with R LE stretching and strengthening. With gait, eliminate assistance with R LE. Work on sit to stand transfers from wheelchair to improve R LE strength. Continue with core strengthening. Balance/Gait/Functional tests - Balance/Special Test Scores Lower Extremity Functional Score: 11 Goals Goal 1:: Increase R LE strength x 1 grade to aid with improving ease with ambulation Goal Time Frame: 4-6 Weeks Goal Progress: Not Progressing Goal 2:: Pt will be able to ambulate 100 feet without help of propelling R LE to aid with I ambulation Goal Time Frame: 4-6 Weeks Goal Progress: Goal Met Goal 3:: Increase core strength x 1 grade to aid with ambulation Goal Time Frame: 4-6 Weeks Goal Progress: Goal Met Goal 4:: I with HEP Goal Time Frame: 4-6 Weeks Goal Progress: Goal Met Goal 5:: Pt will be able to ambulate greater than 300 feet with hemiwalker and no R LE assistance to aid with community ambulation Goal Progress: New goal Goal 6:: Pt will be able to sit to stand from wheelchair to hemiwalker I to aid with I at home Goal Progress: New goal Anticipated Interventions Patient/Client Instruction: Educate patient on: Condition, Plan of Care For the Purpose of:: To improve self management Therapeutic Exercise to Include: Strength training, Endurance training, Balance training, Flexibilty training, Gait and locomotor training, Dynamic Lumbar Stabilization For the Purpose of:: To increase ROM, To improve muscle performance and motor function, To improve balance Please do not hesitate to contact me at [phone] by phone or if you have questions or concerns regarding this new plan of care! Sincerely, Fabian Conrad, PT, ATC
--- NOTE | 2022-10-16 10:04 | HP.PTREVAL ---
Dr. Kristyn Wallace, DO, It has been my pleasure to treat ANAND MARTÍNEZ over the last 13 visits for CVA, R hemiparesis. Please see the progress note below for an update on the physical therapy plan of care! Subjective: Caregiver and pt both report significant improvements with pt at this time. Pt is now able to stand up and ambulate from his chair at home with SBAx1 Objective/Function: R hip flexion is now rated at 2-/5. Pt is able to ambulate 418 feet with CGAx1 and hemicane until needing to rest secondary to fatigue. Pt is able to negotiate 10 stairs with min Ax1 and VCing throughout for proper foot placement. Pt is showing significant functional improvements at this time but would benefit from further skilled therapy to focus on I with ambulation on even and uneven surfaces, and stair negotiation to aid with I at home and throughout community Plan Plan: Attempt to gain 12 more visits to focus on gait training and stair negotiation Balance/Gait/Functional tests - Balance/Special Test Scores Lower Extremity Functional Score: 15 Goals Goal 1:: Pt will be able to ambulate greater than 600 feet with SBA and LRD to aid with community ambulation Goal Time Frame: 4-6 Weeks Goal Progress: New goal Goal 2:: Pt will be able to negotiate 10 stairs with CGAx1 to aid with mobility in community and home Goal Time Frame: 4-6 Weeks Goal Progress: Goal Met Goal 3:: Increase core strength x 1 grade to aid with ambulation Goal Time Frame: 4-6 Weeks Goal Progress: Goal Met Goal 4:: I with HEP Goal Time Frame: 4-6 Weeks Goal Progress: Goal Met Goal 5:: Pt will be able to ambulate greater than 300 feet with hemiwalker and no R LE assistance to aid with community ambulation Goal Progress: Goal Met Goal 6:: Pt will be able to sit to stand from wheelchair to hemiwalker I to aid with I at home Goal Progress: Goal Met Anticipated Interventions Patient/Client Instruction: Educate patient on: Condition, Plan of Care For the Purpose of:: To improve self management Therapeutic Exercise to Include: Strength training, Endurance training, Balance training, Flexibilty training, Gait and locomotor training, Dynamic Lumbar Stabilization For the Purpose of:: To increase ROM, To improve muscle performance and motor function, To improve balance Please do not hesitate to contact me at [phone] by phone or if you have questions or concerns regarding this new plan of care! Sincerely, Fabian Conrad, PT, ATC
--- NOTE | 2022-10-24 11:32 | OTREVAL_ITS ---
Dr. Kristyn Wallace, DO, It has been my pleasure to treat ANAND MARTÍNEZ over the last 16 visits for acquired skull defect, cerebral aneurysm rupture. Please see the progress note below for an update on the occupational therapy plan of care! Subjective: Patient arrived on time with sister. Reports they went to PCP yesterday and the visit went well, they are happy with the progress. Submitted recert this date for additional visits. Objective/Function: Patient seen for last scheduled visit this date. This therapist going to request more visit approval due to patient continues to have need for therapy and demonstrating progress. Patient is able to activate R upper trap and rhomboid. He continues to have good function in the L side. He is now ambulating with SBA with use of kaylene cane with R UE in a givmohr sling. He continues to progress with independence with ADL's but is still requiring mostly moderate assistance with ADL's at home. He demonstrates deficits in sensation in the R UE as well as some flexor tone. He would benefit from continued occupational therapy services to continue to improve ADL independence, f unctional use of R side, and compensatory strategies to improve overall independence and cognitive performance. ROM: patient able to achieve full PROM in R side with the exception of R wrist/hand composite extension and external rotation of the shoulder. Patient is currently not using his R UE as a second assist for opening containers but he can use it for paper/pencil tasks to stablize paper. Plan Frequency: 2x /Week Duration: 3 Months Visits in this POC: 3 months (2x- week) Plan: CONT POC Goals - Goals Patient Goals: Regain Strength, Decrease Swelling/Stiffness, Improve Fine Motor Skills, Use Hand/Wrist/Arm Normally Again, Be More Independent in ADLS, Improve Visual/Perceptual Skills, Improve Transfer Skills Goal:: Patient will demonstrate increased active range of motion of right upper extremity, evidenced by ability to palpate muscle contraction of any arm muscle on at least 5 different occasions. Goal:: Patient will demonstrate improved bimanual skills, evidenced by ability to use right arm as helper arm to stabilizer materials/containers 75% of the time. Goal:: Patient will improve visual attention to right side evidenced by attending to right side with mobility or seated work with less than 2 verbal cues on at least 3 separate occasions. Goal:: Patient will improve LB dressing independence, evidenced by ability to thread L LE and pull up pants without assistance by d/c. Goal:: Patient will participate in novel cognitive activity/game and provide teachback on a different date with less than 2 verbal cues. Anticipated Interventions Anticipated Interventions: A/AAROM/PROM, Strengthening, Joint Protection/Energy Conservation, Fine Motor Coord/Jaguar, Neuro Reeducation, Sensory Stimulation, Visual/Perceptual Skills, Caregiver Training, Home Program Other Interventions: e-stim, mirror therapy Please do not hesitate to contact me at [phone] by phone or if you have questions or concerns regarding this new plan of care! Sincerely, Natalia Chen
--- NOTE | 2022-10-24 11:38 | OTREVAL_ITS ---
Dr. Kristyn Wallace, DO, It has been my pleasure to treat ANAND MARTÍNEZ over the last 16 visits for acquired skull defect, cerebral aneurysm rupture. Please see the progress note below for an update on the occupational therapy plan of care! Subjective: Patient arrived on time with sister. Reports they went to PCP yesterday and the visit went well, they are happy with the progress. Submitted recert this date for additional visits. Objective/Function: Patient seen for last scheduled visit this date. This therapist going to request more visit approval due to patient continues to have need for therapy and demonstrating progress. Patient is able to activate R upper trap and rhomboid. He continues to have good function in the L side. He is now ambulating with SBA with use of kaylene cane with R UE in a givmohr sling. He continues to progress with independence with ADL's but is still requiring mostly moderate assistance with ADL's at home. He demonstrates deficits in sensation in the R UE as well as some flexor tone. He would benefit from continued occupational therapy services to continue to improve ADL independence, f unctional use of R side, and compensatory strategies to improve overall independence and cognitive performance. ROM: patient able to achieve full PROM in R side with the exception of R wrist/hand composite extension and external rotation of the shoulder. Patient is currently not using his R UE as a second assist for opening containers but he can use it for paper/pencil tasks to stablize paper. Plan Frequency: 2x /Week Duration: 3 Months Visits in this POC: 3 months (2x- week) Plan: CONT POC Goals - Goals Patient Goals: Regain Strength, Decrease Swelling/Stiffness, Improve Fine Motor Skills, Use Hand/Wrist/Arm Normally Again, Be More Independent in ADLS, Improve Visual/Perceptual Skills, Improve Transfer Skills Goal:: Patient will participate in 2-3 part cognitive activity with ability to maintain sustained attention for at least 10 minutes and complete the activity with 100% accuracy with less than min A. Goal:: Patient will demonstrate increased active range of motion of right upper extremity, evidenced by ability to palpate muscle contraction of any arm muscle on at least 5 different occasions. Goal:: Patient will demonstrate improved bimanual skills, evidenced by ability to use right arm as helper arm to stabilizer materials/containers 75% of the time. Goal:: Patient will improve visual attention to right side evidenced by attending to right side with mobility or seated work with less than 2 verbal cues on at least 3 separate occasions. Goal:: Patient will improve LB dressing independence, evidenced by ability to thread L LE and pull up pants without assistance by d/c. Goal:: Patient will participate in novel cognitive activity/game and provide teachback on a different date with less than 2 verbal cues. Anticipated Interventions Anticipated Interventions: A/AAROM/PROM, Strengthening, Joint Protection/Energy Conservation, Fine Motor Coord/Jaguar, Neuro Reeducation, Sensory Stimulation, Visual/Perceptual Skills, Caregiver Training, Home Program Other Interventions: e-stim, mirror therapy Please do not hesitate to contact me at [phone] by phone or if you have questions or concerns regarding this new plan of care! Sincerely, Natalia Chen
--- NOTE | 2022-11-12 11:22 | HP.PTREVAL ---
Dr. Kristyn Wallace, DO, It has been my pleasure to treat ANAND MARTÍNEZ over the last 17 visits for CVA, R hemiparesis. Please see the progress note below for an update on the physical therapy plan of care! Subjective: Pt reports he has improved a lot, but still is limited with IADL's such as getting dressed Objective/Function: Gait: Pt is able to ambulate 984 feet with CGAx1 and hemiwalker. Pt can negotiate 10 stairs with 1 UE and one step at a time. Pt is still limited with most IADL's Plan Plan: Attempt to get 12 more visits approved to focus on ambulation on uneven terrain, stair negotiation, and progressive ex's Balance/Gait/Functional tests - Balance/Special Test Scores Lower Extremity Functional Score: 15 Goals Goal 1:: Pt will be able to ambulate greater than 600 feet with SBA and LRD to aid with community ambulation Goal Time Frame: 4-6 Weeks Goal Progress: Goal Met Goal 2:: Pt will be able to negotiate 10 stairs with CGAx1 to aid with mobility in community and home Goal Time Frame: 4-6 Weeks Goal Progress: Goal Met Goal 3:: Increase core strength x 1 grade to aid with ambulation Goal Time Frame: 4-6 Weeks Goal Progress: Goal Met Goal 4:: I with HEP Goal Time Frame: 4-6 Weeks Goal Progress: Goal Met Goal 5:: Pt will be able to ambulate greater than 300 feet with hemiwalker and no R LE assistance to aid with community ambulation Goal Progress: Goal Met Goal 6:: Pt will be able to sit to stand from wheelchair to hemiwalker I to aid with I at home Goal Progress: Goal Met Anticipated Interventions Patient/Client Instruction: Educate patient on: Condition, Plan of Care For the Purpose of:: To improve self management Therapeutic Exercise to Include: Strength training, Endurance training, Balance training, Flexibilty training, Gait and locomotor training, Dynamic Lumbar Stabilization For the Purpose of:: To increase ROM, To improve muscle performance and motor function, To improve balance Please do not hesitate to contact me at [phone] by phone or if you have questions or concerns regarding this new plan of care! Sincerely, Fabian Conrad, PT, ATC
--- NOTE | 2023-03-28 10:40 | HP.OT.NRP ---
Patient Information Patient Information: ANAND MARTÍNEZ was seen in my office for initial evaluation on 08/26/22. The following Plan of Care was established for this patient: POC Established Initial Frequency: 2x /Week Initial Duration: 3 Months Plan: cont POC, encouraged at home stretching program and considering botox in long finger flexors if tightness worsens Anticipated Interventions Anticipated Interventions: A/AAROM/PROM, Strengthening, Joint Protection/Energy Conservation, Fine Motor Coord/Jaguar, Neuro Reeducation, Sensory Stimulation, Visual/Perceptual Skills, Caregiver Training and Home Program Other Interventions: e-stim, mirror therapy Last Seen Last Seen: This patient was last seen in our office 08/26/22. Pertinent comments regarding their Occupational therapy will appear below: No further apts scheduled since august- pt on HEP Due to time lapse in services pt d/c. At this point I will be discontinuing this patient from occupational therapy. I would be happy to see this patient again in the future if found appropriate by the physician. Thank you! Erika Mercado, OTR/L, CHT
--- NOTE | 2023-04-29 11:53 | HP.SP.DC ---
ST Discharge Summary Discharged: Discharge: Romeo Gonzales was discharged from speech therapy at [facility] as of 04/29/23 as he requested discharge from therapy along with his family. He has a history of brain surgery and aneurysm clipping and suffered a stroke during the aneurysm surgery. He was evaluated on 08/28/22 with therapy completed from October to January twice weekly or once weekly. Family requested patient be placed on hold to determine if they wished to continue therapy after a two-month break. No further therapy sessions were scheduled. Therapy focused on increasing communication due to aphasia. His goal to create three sentences for complete sentences was met when he was given moderate cues. He could create a 6 word sentence independently given extra time. His next goal focused on giving answers to who/when/where questions in self-created sentences with ?who verb what?. He was able to give biographical information using this structure which was an additional goal. Romeo continues to have great difficulty in following multistep directions. Family was educated on giving him single steps at a time. Romeo continues to have significant deficits in communication and continues to exhibit receptive/expressive aphasia. Thank you for allowing me to participate in the care of this patient.
== END 2023-02-12 19:00 | disposition home or self-care (01) ==
LOC: SP 10:30
PROVIDERS: PCP Family Medicine; Referring Provider Internal Medicine; Visit Provider Internal Medicine
DX: M95.2 Other acquired deformity of head (principal); I69.392 Facial weakness following cerebral infarction; I69.351 Hemiplegia and hemiparesis following cerebral infarction affecting right dominant side; I69.320 Aphasia following cerebral infarction; I69.321 Dysphasia following cerebral infarction
CPT/HCPCS: 92507; 92523; 97110; 97112; 97116; 97161; 97164; 97166; 97530; 97760

== ENCOUNTER → 2023-02-17 | Outpatient (CLI) | payer BC, SELFPAY ==
[2023-02-17 12:08] LABS: Absolute Lymphocyte Count 1.95 X10^3/uL (0.83-4.51); Absolute Neutrophil Count 4.4 X10^3/uL (2.0-7.7); Basophil# 0.06 X10^3/uL; Basophil% 0.8 % (0-1); Eosinophil# 0.17 X10^3/uL; Eosinophils% 2.4 % (0-5); Hematocrit 48.5 % (40-54); Hemoglobin 15.5 g/dL (13.0-16.5); Lymphocyte # 1.95 X10^3/ul (0.83-4.51); Lymphocyte % 27.3 % (19-41); Mean Corpuscular Hgb 27.3 pg (27.0-32.0); Mean Corpuscular Volume 85.5 fL (80-94); Mean Platelet Vol. 9.1 fl (6.2-12.0); Monocyte# 0.58 X10^3/uL; Monocyte% 8.1 % (0-10); NRBC Flagged by Analyzer 0 % (0-5); Neutrophil # 4.37 X10^3/uL (2.7-7.7); Neutrophil % 61.1 % (47-70); Platelet Count 307 K/mm3 (150-450); RBC Distribution Width CV 13.6 % (11.6-14.6); RBC Distribution Width SD 42.5 fl (35.1-43.9); Red Blood Count 5.67 M/mm3 (4.6-6.2); White Blood Count 7.2 K/mm3 (4.4-11.0)
== END | disposition home or self-care (01) ==
LOC: BFHLAB 10:13
PROVIDERS: PCP Family Medicine; Referring Provider Family Medicine; Visit Provider Family Medicine
DX: Z51.81 Encounter for therapeutic drug level monitoring (principal)
CPT/HCPCS: 36415; 85025

== ENCOUNTER → 2023-03-27 | Outpatient (CLI) | payer BC, SELFPAY ==
--- NOTE | 2023-03-27 09:16 | RAD_ITS ---
STUDY: X-RAY - RIGHT HUMERUS REASON FOR EXAM: Male, 37 years old. FALL, TRAUMA TECHNIQUE: 2 view(s) of the humerus. COMPARISON: None. FINDINGS: Nondisplaced impacted fracture of the surgical neck of the proximal humerus with the extension to the greater tuberosity. Soft tissue swelling. RAD/Humerus min 2 Views IMPRESSION: Nondisplaced impacted fracture through the surgical neck of the proximal humerus with extension into the greater tuberosity. Electronically Signed: Rolo Parker MD at 10:12 EST ,
--- NOTE | 2023-03-27 09:17 | RAD_ITS ---
STUDY: X-RAY - RIGHT WRIST REASON FOR EXAM: Male, 37 years old. PAIN, FALL TECHNIQUE: 3 view(s) of the wrist were obtained. COMPARISON: None. FINDINGS: Normal visualized distal radius and ulna. Normal radiocarpal articulation. Normal distal radioulnar articulation. Normal carpal bones. Normal carpal articulations. Normal carpometacarpal articulation of the thumb. Normal second through fifth carpometacarpal articulations. Normal visualized metacarpal bones. Soft tissue swelling. RAD/Wrist min 3 Views IMPRESSION: Soft tissue swelling. Electronically Signed: Rolo Parker MD at 10:11 EST ,
--- NOTE | 2023-03-27 09:17 | RAD_ITS ---
STUDY: X-RAY - RIGHT RADIUS AND ULNA REASON FOR EXAM: Male, 37 years old. FALL, PAIN TECHNIQUE: 2 view(s) of the forearm. COMPARISON: None. FINDINGS: Soft tissue swelling. Normal visualized radius. Normal visualized ulna. RAD/Forearm 2 Views IMPRESSION: Normal x-ray examination of the radius and ulna. Electronically Signed: Rolo Parker MD at 10:11 EST ,
== END | disposition home or self-care (01) ==
LOC: MTRAD 09:14
PROVIDERS: PCP Family Medicine; Referring Provider Family Medicine; Visit Provider Family Medicine
DX: M79.601 Pain in right arm (principal); M25.531 Pain in right wrist
CPT/HCPCS: 73060; 73090; 73110

== ENCOUNTER 2023-04-08 16:57 | Emergency (ER) | payer BC, SELFPAY ==
[2023-04-08 16:58] VITALS: BP 130/100; BP 133/92; PULSE 92; RESP 18; TEMP 37; O2SAT 97
[2023-04-08 17:27] VITALS: BMI 35.5
--- NOTE | 2023-04-08 17:44 | CT_ITS ---
EXAMINATION : Head CT w/out contrast HISTORY : Head injury COMPARISON : None. TECHNIQUE : Multiple contiguous axial images were obtained from the skull base to the vertex without intravenous contrast. A radiation dose optimization technique was used for this scan. FINDINGS : There is no evidence for acute intracranial hemorrhage, mass effect, or midline shift. There is no extra-axial fluid collection. There are periventricular white matter changes consistent with chronic microvascular ischemic disease. There is sulcal widening and ventricular enlargement consistent with cerebral atrophy. There is normal forrest-white differentiation, without CT evidence of acute ischemia or infarct. Left hemispheric encephalomalacia. The skull base and calvarium are unremarkable. The orbits are unremarkable. The paranasal sinuses are clear. The mastoid air cells are well-aerated. The soft tissues are unremarkable. CT/Brain/Head without Contrast IMPRESSION: No acute intracranial abnormality. Left hemispheric encephalomalacia. Chronic involutional and ischemic changes of the brain. Electronically Signed: Edenilson Bailey MD at 19:03 [facility] ,
--- NOTE | 2023-04-08 17:52 | EX.ED.GENINJ ---
HPI History of Present Illness Chief Complaint: Head Injury Informant: patient and family Onset/Context/Timing Onset: Weeks (2) Mechanism/Context: Fall Worsened by: Nothing Relieved by: Nothing Associated Symptoms Associated Symptoms: Positive for Weakness; Negative for Parasthesias, Loss of consciousness or Amnesia Narrative Narrative: Presents after a fall that occurred 2 weeks ago. Patient fell and injured his right arm. Patient was diagnosed with a proximal humerus fracture at that time. Patient has been in a sling and swath. Family states that the patient has been less alert and aware over the past few days. Family states patient is having more difficulty with his balance. Patient has a history of brain surgery and aneurysm clipping. Patient suffered a stroke during the aneurysm surgery. Patient has right hemiparesis from this. Patient also has a history of pulmonary embolism and is on Eliquis. Because of this, family is concerned for intracranial bleeding. [facility] Medical History Aphasia as late effect of stroke Arterial ischemic stroke, MCA (middle cerebral artery), left, acute Current use of snf anticoagulation Debility Dissection of cerebral artery DVT (deep venous thrombosis) Fecal incontinence Generalized weakness Hemiparesis affecting right side as late effect of cerebrovascular accident Hyperlipidemia Hypertension Ischemic cerebrovascular accident (CVA) Obesity (BMI 30-39.9) Stroke/cerebrovascular accident Subarachnoid hemorrhage Urinary incontinence Home Medications acetaminophen 500 mg tablet (Acetaminophen Pain Relief) 500 mg PO Q6H PRN fever or pain #90 tabs 07/18/22 [Rx Last Taken Unknown] apixaban 5 mg tablet 5 mg PO BID Blood clots 08/05/22 [History Last Taken Unknown] atorvastatin 20 mg tablet 20 mg PO QHS cholesterol 08/05/22 [History Last Taken Unknown] ipratropium bromide 42 mcg (0.06 %) nasal spray 2 spray NASAL BID airway 08/05/22 [History Last Taken Unknown] menthol-zinc oxide 0.5 %-20.65 % topical ointment (DermaSeptin) See Rx Instructions .ROUTE .COMPLEX redness 08/05/22 [History Last Taken Unknown] Arthritis Pain Compound 3 click topical TID #2 BOTTLES 08/23/22 [Rx Last Taken Unknown] apixaban 5 mg (74 tabs) tablets in a dose pack (Eliquis DVT-PE Treat 30D Start) 5 mg PO BID #74 tabs 12/14/22 [Rx Last Taken Unknown] dicyclomine 10 mg capsule 20 mg (2 x 10 mg) PO Q6H PRN PRN abdominal pain #20 CAPSULES 12/14/22 [Rx Last Taken Unknown] ondansetron 4 mg disintegrating tablet 8 mg (2 x 4 mg) PO Q8H PRN PRN Nausea #20 tabs 12/14/22 [Rx Last Taken Unknown] Allergy/AdvReac Type Severity Reaction Status Date / Time No Known Allergies Allergy Verified 04/08/23 16:58 Surgical History History of appendectomy History of cholecystectomy Status post aneurysm repair Status post craniectomy Status post craniotomy Social History adopted: No household members: family housing: house number of children: 0 current occupational status: disabled Smoking Status: Never smoker alcohol intake: never substance use type: does not use ROS ROS ED Constitutional Constitutional ED: Denies chills or fever(s) Eyes Eyes: Denies blurry vision or change in vision ENT ENT ED: Denies rhinorrhea or sore throat Cardiovascular Cardiovascular: Denies chest pain or palpitations Respiratory/Chest Respiratory/Chest: Denies cough or dyspnea Gastrointestinal Gastrointestinal: Denies nausea or vomiting Genitourinary Genitourinary ED: Denies dysuria or hematuria Musculoskeletal Musculoskeletal: Denies back pain or neck pain Integumentary Denies abscess or rash Neurologic Neurologic: Reports headache(s) and weakness Allergic/Immunologic Allergic/Immunologic ED: Denies mouth swelling or urticaria EXAM Physical Exam Const Vital Signs: 04/08/23 16:58 04/08/23 17:27 04/08/23 16:58 Temperature 98.6 F Temperature Source Temporal Pulse Rate 92 Respiratory Rate 18 18 Blood Pressure 130/100 H 133/92 H Blood Pressure Mean 110 105 Pulse Ox 97 97 Oxygen Delivery Method Room Air Room Air Room Air Positive well nourished and well developed General Appearance ED: well developed and NAD Neck full ROM General: Negative for tenderness Resp normal respiratory effort and clear to auscultation bilaterally Cardio regular rhythm Rate: regular rate GI non-tender and non-distended Palpation: soft Neuro CN's II-XII intact bilaterally and no sensory deficits noted Neuro Narrative: There is right-sided hemiparesis due to prior stroke. Strength is 5/5 bilaterally in the left upper and lower extremities. There are no apparent sensory deficits noted. Sensorium / Orientation: alert Skin no rashes or lesions noted and no wounds MDM MDM MDM Narrative Medical decision making narrative: Differential diagnosis includes closed head injury, concussion, and intracranial bleeding. CT scan of the brain will be obtained to assess for intracranial bleeding. Radiography Diagnostic Testing: Clinical Impression(s) from Imaging Studies Brain CT 04/08/23 17:44 IMPRESSION: No acute intracranial abnormality. Left hemispheric encephalomalacia. Chronic involutional and ischemic changes of the brain. Electronically Signed: Edenilson Bailey MD at 19:03 EST , CT scan of the brain was obtained. There is no intracranial bleeding. There are chronic changes noted. This was interpreted by the radiologist and was also independently reviewed by myself. Treatment and Re-Evaluation Narrative: Patient and family were advised of the findings. Patient was instructed to follow-up with his primary care physician in 5 to 7 days. Patient was instructed return if worse in any way. Patient and family understood and were agreeable with the plan. All questions were answered. Discharge Plan Triage Chief Complaint: Head Injury ED Provider: Yovany Wheeler Dx/Rx/DC Orders Clinical Impression: Hemiparesis affecting right side as late effect of cerebrovascular accident, Closed head injury Instructions: ED Head Injury (Adult) Prescriptions: No Action acetaminophen [Acetaminophen Pain Relief] 500 mg tablet 500 mg PO Q6H PRN (Reason: fever or pain) Qty: 90 6RF Rx Instructions: 1-2 tabs PO every 6 hours as needed for pain or fever atorvastatin 20 mg tablet 20 mg PO QHS ipratropium bromide 42 mcg (0.06 %) spray,non-aerosol 2 spray NASAL BID DermaSeptin 0.5-20.65 % ointment See Rx Instructions .ROUTE .COMPLEX Rx Instructions: apply topically to the lorenza-rectal area BID and after BM's apixaban 5 mg tablet 5 mg PO BID Rx Instructions: 1 tab every 12 hours. Arthritis Pain Compound 3 click topical TID Qty: 2 3RF Eliquis DVT-PE Treat 30D Start 5 mg (74 tabs) tablets,dose pack 5 mg PO BID Qty: 74 0RF Rx Instructions: use as directed dicyclomine 10 mg capsule 20 mg PO Q6H PRN PRN (Reason: abdominal pain) Qty: 20 0RF ondansetron [ondansetron] 4 mg tablet,disintegrating 8 mg PO Q8H PRN PRN (Reason: Nausea) Qty: 20 0RF Primary Care Provider: Mario Moreira Referrals: Mario Moreira DO [Primary Care Provider] - 5-7 Days Disposition Disposition: Home, Self Care
[2023-04-08 19:25] VITALS: BP 132/91; O2SAT 97
== END 2023-04-08 19:41 | disposition home or self-care (01) ==
PROVIDERS: Emergency Provider Emergency Medicine; PCP Family Medicine; Visit Provider Emergency Medicine
DX: G81.91 Hemiplegia, unspecified affecting right dominant side (principal); S09.90XA Unspecified injury of head, initial encounter; Z79.01 Long term (current) use of anticoagulants; Z86.711 Personal history of pulmonary embolism; W19.XXXA Unspecified fall, initial encounter; Z86.718 Personal history of other venous thrombosis and embolism
CPT/HCPCS: 70450; 99282

== ENCOUNTER → 2023-05-07 | Outpatient (CLI) | payer BC, SELFPAY ==
--- NOTE | 2023-05-07 10:06 | MRI_ITS ---
STUDY: MRA OF THE HEAD WITHOUT CONTRAST REASON FOR EXAM: Male, 37 years old. MCA ANEURYSM TECHNIQUE: 3-D [id number] (TOF) imaging was performed with MIPs. The study was performed unenhanced. No contrast imaging. Contrast: No contrast administered. COMPARISON: CT of 04/08/2023 FINDINGS: CAROTID VESSELS: Normal bilateral petrous carotid arteries. Normal right cavernous carotid artery with a normal supraclinoid bifurcation. [Cavernous and petrous carotid vessels are small in size however no focal stenosis. ANTERIOR CEREBRAL ARTERIES: Normal right A1 segments of the anterior cerebral artery. Normal left A1 segments of the anterior cerebral artery. Normal intact anterior communicating artery (ACOM). Normal bilateral A2 segments of the anterior cerebral arteries. MIDDLE CEREBRAL ARTERIES: Normal right M1 and M2 segments of the middle cerebral arteries, with a normal M1 bifurcation. The LEFT MCA is occluded and corresponds to the areas of extensive encephalomalacic change involving the LEFT hemisphere. POSTERIOR COMMUNICATING ARTERIES: Posterior communicating vessels are not visualized. VERTEBRAL BASILAR SYSTEM: Normal bilateral vertebral arteries. Normal basilar artery with a normal basilar bifurcation. The visualized bilateral superior cerebellar (SCA) arteries are normal. POSTERIOR CEREBRAL ARTERIES Normal bilateral P1, P2 and visualized P3 segments of the posterior cerebral arteries. There is no demonstrated aneurysm of the nez perce of [place]. There is absence of the LEFT MCA corresponding to the area of remote infarct and encephalomalacia involving the LEFT hemisphere. The remaining elements of the nez perce of [place] are patent. MRI/MRA Head ONLY without Contrast IMPRESSION: 1. Chronic occlusion of the LEFT MCA. 2. Remaining elements of the nez perce of [place] are widely patent. No acute LVO identified. 3. No aneurysm identified. Electronically Signed: Maxx Sam MD at 23:43 EST ,
== END | disposition home or self-care (01) ==
LOC: MRI 10:03
PROVIDERS: PCP Family Medicine
DX: I67.1 Cerebral aneurysm, nonruptured (principal)
CPT/HCPCS: 70544

== ENCOUNTER 2023-09-10 10:00 | Outpatient (RCR) | payer BC, SELFPAY ==
--- NOTE | 2023-07-16 15:03 | HP.PTEVAL_ITS ---
Patient's Visit Information Visit Information Visit Information: ANAND MARTÍNEZ is a 37 year old M referred to Physical Therapy by Dr. Mario Moreira DO with a diagnosis of R hemiparesis. Date of Evaluation: 07/16/23 Physical Therapist: Fabian Conrad, PT, ATC Visit Plan Frequency: 1x/Week Duration: 2-4 Months Plan: R LE strengthening, balance and proprio, gait training with LRD, stair negotiation, core strengthening, and HEP Subjective Subjective: CVA: 06/11/22. Pt reports he has had R sided hemiparesis since that date. Pt notes he has had PT in the past for this issue, which has really helped, but notes he continues to experience falls and LOB as a result. Pt reports his last fall was on 03/26/23, which resulted in a R shoulder fracture. Pt notes he has fallen at least 3 times over the past year. Pt has been ambulating with a cane, but attempts to ambulate with no AD at home. Pt reports hsi major complaints at this time are standing up from a chair, balance with ambulation, and tolerance for ambulation. Pt reports he can feel his foot hit the ground, but he definitely has decreased sensation. Pt has stairs at home that he has to negotiate one step at a time to get to his basement. Pt reports another functional goal he is here for is to strengthen his mobility so he can return to work one day. Objective Objective: Neuro: B LE sensation is WNL to light touch. B patellar reflex= 2/3 Gait: Pt is able to ambulate 680 feet until needing to rest Sit to stand: Pt is able to perform 9 sit to stands in 30 seconds MMT: R LE is grossly 3/5 while L LE is grossly 5/5 throughout Balance/Special Test Scores Lower Extremity Functional Score: 19 Goals Goal 1:: Increase R LE strength x 1/2 muscle grade to aid with sit to stand transfers Goal Time Frame: 8-12 Weeks Goal 2:: Pt will perform 12 sit to stand transfers in 30 seconds Goal Time Frame: 8-12 Weeks Goal 3:: Pt will be able to ambulate greater than 1000' with LRD to aid with community ambulation Goal Time Frame: 8-12 Weeks Goal 4:: I with HEP Goal Time Frame: 8-12 Weeks Rehabilitation Potential Physical Therapy Diagnosis: Pt has R LE weakness, intolerance for prolonged ambulation, and difficulty with sit to stand transfers secondary to R hemiparesis Rehabilitation Potential: Good Anticipated Interventions Patient/Client Instruction: Educate patient on: Condition and Plan of Care For the Purpose of:: To improve self management Therapeutic Exercise to Include: Strength training, Endurance training, Balance training, Gait and locomotor training, Active ROM and Dynamic Lumbar Stabilization For the Purpose of:: To improve muscle performance and motor function, To increase tolerance to activity/condition/position and To improve ability of physical actions for home/community/work/leisure Text: Thank you for the opportunity to evaluate your patient. For Medicare and Medicare HMO plans, please review the plan of care and approve it. It will need to be FAXED BACK to us at [phone] for Medicare purposes. For Medicare only, by signing this I certify the plan of care. Please let me know if there are questions or concerns regarding this plan of care. Physician Signature: Date:
--- NOTE | 2023-09-10 10:56 | HP.PTDCSUM ---
Discharge Summary D/C summary: It has been my pleasure to treat ANAND MARTÍNEZ referred by Dr. Mario Moreira DO, with the diagnosis of R hemiparesis for a total of 8 visit(s). Discharge Date: Please see the following information for a summary of their discharge status. Subjective Subjective: Pt feels like he is ready to be finished with PT Overall Improvement % Improvement: 85 Objective Objective/Function: Pt is now I with HEP Pt is able to ambulate greater than 1000 feet with SBA and cane without difficulty Pt is able to perform 9 sit to stand transfers in 30 sec R LE strength 3/5 Goals Goal 1:: Increase R LE strength x 1/2 muscle grade to aid with sit to stand transfers Goal Progress: Not Progressing Goal 2:: Pt will perform 12 sit to stand transfers in 30 seconds Goal Progress: Not Progressing Goal 3:: Pt will be able to ambulate greater than 1000' with LRD to aid with community ambulation Goal Progress: Goal Met Goal 4:: I with HEP Goal Progress: Goal Met Plan Plan: Discontinue to HEP D/C Information d/c sentence: If there are questions or concerns regarding this patient's physical therapy, please feel free to call me at [phone]. Thank you for the referral of this patient. Sincerely, Fabian Conrad, PT, ATC Balance/Gait/Functional tests Balance/Special Test Scores Lower Extremity Functional Score: 32 Improvement % Improvement: 85
== END 2023-09-10 19:00 | disposition home or self-care (01) ==
LOC: PT 10:00
PROVIDERS: PCP Family Medicine; Referring Provider Family Medicine; Visit Provider Family Medicine
DX: I69.351 Hemiplegia and hemiparesis following cerebral infarction affecting right dominant side (principal)
CPT/HCPCS: 97110; 97161; 97164

== ENCOUNTER → 2024-01-01 | Outpatient (CLI) | payer BC, SELFPAY ==
[2024-01-01 10:37] LABS: Cholesterol 168 mg/dL (200); Glucose 108 mg/dL (74-106); High Density Lipoprotein 35 mg/dL; Triglycerides 153 mg/dL; Very Low Density Lipoprotein 31 mg/dL (5-40)
[2024-01-01 14:08] LABS: Hemoglobin A1c 5.3 % (3.8-5.6)
== END | disposition home or self-care (01) ==
PROVIDERS: PCP Family Medicine; Referring Provider Family Medicine; Visit Provider Family Medicine
DX: Z00.00 Encounter for general adult medical examination without abnormal findings (principal); R73.01 Impaired fasting glucose
CPT/HCPCS: 36415; 80061; 82947; 83036

== ENCOUNTER 2024-10-09 16:12 | Emergency (ER) | payer BC, SELFPAY ==
[2024-10-09 16:13] VITALS: BP 138/104; PULSE 89; RESP 15; TEMP 36.4; O2SAT 96
[2024-10-09 16:22] VITALS: BMI 35.4
--- NOTE | 2024-10-09 16:38 | EX.ED.GENINJ ---
HPI History of Present Illness Chief Complaint: Fall Informant: patient and family Narrative Narrative: Patient is a 38-year-old male with history of cerebral aneurysm status post rupture with secondary stroke with right sided deficits presenting from home after what sounds like mechanical fall. Patient was doing his daily exercises of walking up and down the driveway. Family found him kneeling on the driveway trying to get up. It seems like he slipped and fell. Patient does not remember exactly why he fell but states he just fell really fast. He denies hitting his head. He did not scratch his glasses or break them. He initially was complaining mostly of pain in his right ankle but since then he has had pain in his right knee as well. Addition he has some pain to his right hand and abrasion/milder pain to his left knee. 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 DVT (deep venous thrombosis) Subarachnoid hemorrhage Dissection of cerebral artery Obesity (BMI 30-39.9) Arterial ischemic stroke, MCA (middle cerebral artery), left, acute Stroke/cerebrovascular accident Hypertension Home Medications ?Medication ?Instructions ?Recorded ?Last Taken ?Type acetaminophen 500 mg tablet 500 mg PO Q6H PRN fever or pain 07/18/22 Unknown Rx (Acetaminophen Pain Relief) #90 tabs apixaban 5 mg tablet 5 mg PO BID Blood clots 08/05/22 Unknown History atorvastatin 20 mg tablet 20 mg PO QHS cholesterol 08/05/22 Unknown History ipratropium bromide 42 mcg (0.06 2 spray NASAL BID airway 08/05/22 Unknown History %) nasal spray menthol-zinc oxide 0.5 %-20.65 % See Rx Instructions .ROUTE 08/05/22 Unknown History topical ointment (DermaSeptin) .COMPLEX redness Arthritis Pain Compound 3 click topical TID #2 BOTTLES 08/23/22 Unknown Rx dicyclomine 10 mg capsule 20 mg (2 x 10 mg) PO Q6H PRN PRN 12/14/22 Unknown Rx abdominal pain #20 CAPSULES ondansetron 4 mg disintegrating 8 mg (2 x 4 mg) PO Q8H PRN PRN 12/14/22 Unknown Rx tablet Nausea #20 tabs hydrocodone-acetaminophen 5-325mg 1 tab PO Q6H PRN PRN Pain 3 days 10/09/24 Unknown Rx 5mg-325mg #12 TABLETS Allergy/AdvReac Type Severity Reaction Status Date / Time No Known Allergies Allergy Verified 10/09/24 16:13 Surgical History History of cholecystectomy History of appendectomy Status post craniectomy Status post aneurysm repair Status post craniotomy Social History adopted: No household members: family housing: house number of children: 0 current occupational status: disabled Smoking Status: Never smoker alcohol intake: never substance use type: does not use ROS ROS ED Constitutional Constitutional ED: Denies chills or fever(s) Eyes Eyes: Denies blurry vision Cardiovascular Cardiovascular: Denies chest pain Respiratory/Chest Respiratory/Chest: Denies dyspnea Gastrointestinal Gastrointestinal: Denies abdominal pain, nausea or vomiting Musculoskeletal Musculoskeletal: Reports arthralgias, myalgias and other Details: right hand, knee and ankle pain, left knee pain ; Denies back pain or neck pain Integumentary Reports Abrasions Neurologic Neurologic: Reports weakness; Denies headache(s) or paresthesias Hematologic/Lymphatic Hematologic/Lymphatic: Denies easy bleeding or easy bruising EXAM Physical Exam Const Vital Signs: 10/09/24 16:13 10/09/24 16:24 Temperature 97.5 F L Temperature Source Temporal Pulse Rate 89 Respiratory Rate 15 Respiratory Effort Normal Non-Labored Respiratory Depth Normal Respiratory Pattern Normal Blood Pressure 138/104 H Blood Pressure Mean 115 Pulse Ox 96 Oxygen Delivery Method Room Air Room Air Positive well nourished and well developed General Appearance ED: well developed and NAD HEENT Reports TM's clear atraumatic Tympanic Membrane ED: Yes TM's clear Eyes PERRL Chest Wall inspection of chest normal and palpation of chest normal Chest Narrative: No chest wall crepitus Resp normal respiratory effort and clear to auscultation bilaterally Cardio regular rhythm Cardio Narrative: 2+ radial DP pulses present Rate: regular rate GI normal to inspection, nondistended, normoactive bowel sounds and non-tender Back/Spine normal to inspection and no thoracic nor lumbar tenderness Extremity Extremity Narrative: Contracture of the right hand?chronic. No obvious deformity otherwise. Scattered abrasions over the fingers. No tenderness or deformity of the right upper extremity. Normal left upper extremity with sustained abrasions to the palm of the left hand. Pelvis is stable. Left lower extremity?mild abrasions over the left knee but normal range of motion. No pinpoint bony tenderness. No joint effusion present. No pain with range of motion of the hip with normal logroll. Normal range of motion of the ankle and foot. No bony tenderness. Normal extensor mechanism. Right lower extremity?abrasions over the right knee. Normal range of motion but pain with range of motion of the right knee. Joint effusion present of the right knee. Mild tenderness over the inferior aspect of the right knee but not specifically over the tibial plateau. No pain with range of motion of the right hip. Normal Nguyễn test. Normal extensor mechanism. Mild tenderness of the right ankle but no pinpoint bony tenderness over the medial lateral malleolus. No specific tenderness to the right foot. No obvious deformity of the foot. Neuro oriented x3 Neuro Narrative: Slightly slurred speech neurologic deficits consistent with prior stroke to the right side. No acute neurologic deficit per patient and family. Sensation intact in all extremities. Psych mental status grossly normal and thought process normal Skin Skin Narrative: Scattered abrasions to the right hand, bilateral knees and left palm Trauma: abrasion MDM MDM MDM Narrative Medical decision making narrative: Patient evaluated after mechanical fall. Patient is a good historian. Does have neurologic deficits at baseline from prior stroke. Differential includes tibial plateau fracture, right hand fracture, abrasions, patellar fracture on the right and right ankle fracture/right ankle sprain. X-ray of the right hand, right knee and ankle are obtained. These were reviewed by myself as well as radiology. Patient does have an acute horizontal fracture of the patella with a moderate joint effusion but no other acute fractures. Patient is given Tylenol and tetanus is obtained in the emergency room. He states his pain is improved with Tylenol. I did speak with Dr. Alexander, orthopedics on-call. He recommends weightbearing as tolerated, knee immobilizer will follow-up with the patient in office in a week. Patient and family agreeable with this. They feel comfortable being discharged home. They feel they have enough resources to take care of him at home and did not require admission. Will prescribe a short course of [place]field as needed for breakthrough pain but otherwise he can alternate ibuprofen and Tylenol. They are comfortable with this. Given return precautions. Discharged home in stable condition. Radiography Diagnostic Testing: Clinical Impression(s) from Imaging Studies Hand X-Ray 10/09/24 16:50 IMPRESSION: No obvious acute fracture. Reading Location: [facility] Knee X-Ray 10/09/24 16:50 IMPRESSION: Acute horizontal fracture of the patella. Moderate joint effusion. Reading Location: [facility] Ankle X-Ray 10/09/24 16:54 IMPRESSION: Severe diffuse osseous demineralization. No obvious acute fracture. Reading Location: [facility] Discharge Plan Triage Chief Complaint: Fall ED Provider: Fadia Warren Dx/Rx/DC Orders Clinical Impression: Closed fracture of right patella, Abrasions of multiple sites, Need for [id number] (Tdap) vaccine Instructions: ED Abrasion, ED Knee Immobilizer, ED Patella Fracture Prescriptions: New hydrocodone-acetaminophen 5-325 mg tablet 1 tab PO Q6H PRN PRN (Reason: Pain) 3 Days Qty: 12 0RF No Action acetaminophen [Acetaminophen Pain Relief] 500 mg tablet 500 mg PO Q6H PRN (Reason: fever or pain) Qty: 90 6RF Rx Instructions: 1-2 tabs PO every 6 hours as needed for pain or fever atorvastatin 20 mg tablet 20 mg PO QHS ipratropium bromide 42 mcg (0.06 %) spray,non-aerosol 2 spray NASAL BID DermaSeptin 0.5-20.65 % ointment See Rx Instructions .ROUTE .COMPLEX Rx Instructions: apply topically to the lorenza-rectal area BID and after BM's apixaban 5 mg tablet 5 mg PO BID Rx Instructions: 1 tab every 12 hours. Arthritis Pain Compound 3 click topical TID Qty: 2 3RF dicyclomine 10 mg capsule 20 mg PO Q6H PRN PRN (Reason: abdominal pain) Qty: 20 0RF ondansetron [ondansetron] 4 mg tablet,disintegrating 8 mg PO Q8H PRN PRN (Reason: Nausea) Qty: 20 0RF Primary Care Provider: Mario Moreira Referrals: Mario Moreira DO [Primary Care Provider] - Adonay Alexander MD [Med Staff - Active Staff] - Activity Restrictions/Additional Instructions: You have a break to your right patella. Please follow-up with Dr. Alexander, our orthopedist. Call the office on Friday to arrange follow-up. You might require surgery to your knee. In the meantime you need to wear the knee immobilizer at all times (accept when showering or changing) and keep your leg straight at all times. You may ice the area is much as you would like through the immobilizer. Alternate ibuprofen and Tylenol. If needed you may also take the G[place]field (hydrocodone with 325 mg of Tylenol) for breakthrough pain. Has been sent to your pharmacy. Print Language: Afghan
[2024-10-09] MEDS: Acetaminophen 325 MG Tablet 650 MG PO (16:40)
--- NOTE | 2024-10-09 16:50 | RAD_ITS ---
PROCEDURE: KNEE 1 OR 2 VIEWS 10/09/2024 REASON FOR EXAM: INJURY/PAIN TECHNIQUE: 2 view(s) of the right knee COMPARISON: None. FINDINGS: Bones: Acute horizontal fracture of the patella with mild distraction of the fracture fragments. No suspicious osseous lesion. Joints: Normal alignment. Mild degenerative changes. Effusion: Moderate joint effusion. Soft tissues: Mild soft tissue swelling. RAD/Knee 1 or 2 Views IMPRESSION: Acute horizontal fracture of the patella. Moderate joint effusion. Reading Location: [id number]
--- NOTE | 2024-10-09 16:50 | RAD_ITS ---
PROCEDURE: HAND MIN 3 VIEWS 10/09/2024 REASON FOR EXAM: INJURY/PAIN TECHNIQUE: 3 view(s) of the right hand COMPARISON: None. FINDINGS: Visualization is limited by patient positioning from chronic stroke. Bones: No obvious acute fracture. No aggressive osseous lesions. Joints: Normal alignment. Mild degenerative changes. Soft tissues: Soft tissues are unremarkable. RAD/Hand Min 3 Views IMPRESSION: No obvious acute fracture. Reading Location: [id number]
--- NOTE | 2024-10-09 16:54 | RAD_ITS ---
PROCEDURE: ANKLE MIN 3 VIEWS 10/09/2024 REASON FOR EXAM: INJURY/PAIN TECHNIQUE: 3 views of the right ankle COMPARISON: None. FINDINGS: Bones: Severe diffuse osseous demineralization. No obvious acute fracture. No aggressive osseous lesions. Joints: Normal alignment. Mortise appears grossly intact. Soft tissues: Soft tissues are unremarkable. RAD/Ankle min 3 Views IMPRESSION: Severe diffuse osseous demineralization. No obvious acute fracture. Reading Location: [id number]
--- NOTE | 2024-10-09 17:33 | CONS.ORTHO ---
HPI Consult Data Date of Consult: 10/09/24 HPI Narrative HPI Narrative: ANAND MARTÍNEZ, is a 38 M who presents with a patella fracture in a kaylene plegic patient. [facility] Medical History (Updated 10/09/24 @ 17:34 by Adonay Alexander MD) Patella fracture Aphasia as late effect of stroke Hemiparesis affecting right side as late effect of cerebrovascular accident Generalized weakness Hyperlipidemia Ischemic cerebrovascular accident (CVA) Fecal incontinence Urinary incontinence Debility Current use of long-term anticoagulation DVT (deep venous thrombosis) Subarachnoid hemorrhage Dissection of cerebral artery Obesity (BMI 30-39.9) Arterial ischemic stroke, MCA (middle cerebral artery), left, acute Stroke/cerebrovascular accident Hypertension Home Medications ?Medication ?Instructions ?Recorded ?Last Taken ?Type acetaminophen 500 mg tablet 500 mg PO Q6H PRN fever or pain 07/18/22 Unknown Rx (Acetaminophen Pain Relief) #90 tabs apixaban 5 mg tablet 5 mg PO BID Blood clots 08/05/22 Unknown History atorvastatin 20 mg tablet 20 mg PO QHS cholesterol 08/05/22 Unknown History ipratropium bromide 42 mcg (0.06 2 spray NASAL BID airway 08/05/22 Unknown History %) nasal spray menthol-zinc oxide 0.5 %-20.65 % See Rx Instructions .ROUTE 08/05/22 Unknown History topical ointment (DermaSeptin) .COMPLEX redness Arthritis Pain Compound 3 click topical TID #2 BOTTLES 08/23/22 Unknown Rx dicyclomine 10 mg capsule 20 mg (2 x 10 mg) PO Q6H PRN PRN 12/14/22 Unknown Rx abdominal pain #20 CAPSULES ondansetron 4 mg disintegrating 8 mg (2 x 4 mg) PO Q8H PRN PRN 12/14/22 Unknown Rx tablet Nausea #20 tabs Allergy/AdvReac Type Severity Reaction Status Date / Time No Known Allergies Allergy Verified 10/09/24 16:13 Surgical History History of cholecystectomy History of appendectomy Status post craniectomy Status post aneurysm repair Status post craniotomy Social History adopted: No household members: family housing: house number of children: 0 current occupational status: disabled Smoking Status: Never smoker alcohol intake: never substance use type: does not use Vital Signs Vital Signs Vital Signs: 10/09/24 16:13 10/09/24 16:24 Temperature 97.5 F L Temperature Source Temporal Pulse Rate 89 Respiratory Rate 15 Respiratory Effort Normal Non-Labored Respiratory Depth Normal Respiratory Pattern Normal Blood Pressure 138/104 H Blood Pressure Mean 115 Pulse Ox 96 Oxygen Delivery Method Room Air Room Air Weight Weight: 219 lb 5.759 oz Body Mass Index (BMI) 35.4 Imaging Radiology Impression Hand X-Ray 10/09/24 16:50 IMPRESSION: No obvious acute fracture. Reading Location: [facility] Knee X-Ray 10/09/24 16:50 IMPRESSION: Acute horizontal fracture of the patella. Moderate joint effusion. Reading Location: [facility] Ankle X-Ray 10/09/24 16:54 IMPRESSION: Severe diffuse osseous demineralization. No obvious acute fracture. Reading Location: [facility] Assessment & Plan Assessment/Plan (1) Patella fracture: PLAN: 38 yr M with patella fracture, transverse and displaced. Recommended for surgery. Asked Dr. Warren to arrange follow up this coming week to discuss with the patient his options. For now knee immobilizer and WBAT in full extension.
[2024-10-09] MEDS: Diphth,Pertuss(Acell),Tet Vac 0.5 ML Vial IM (17:46)
[2024-10-09 17:51] VITALS: BP 125/78; PULSE 98; RESP 16; TEMP 36.7; O2SAT 99
== END 2024-10-09 18:20 | disposition home or self-care (01) ==
PROVIDERS: Emergency Provider Emergency Medicine; PCP Family Medicine; Visit Provider Emergency Medicine
DX: S82.001A Unspecified fracture of right patella, initial encounter for closed fracture (principal); S80.212A Abrasion, left knee, initial encounter; S60.511A Abrasion of right hand, initial encounter; W01.0XXA Fall on same level from slipping, tripping and stumbling without subsequent striking against object, initial encounter; Z86.718 Personal history of other venous thrombosis and embolism; Z86.73 Personal history of transient ischemic attack (TIA), and cerebral infarction without residual deficits
CPT/HCPCS: 73130; 73560; 73610; 90471; 99284

== ENCOUNTER 2024-10-27 12:37 | Observation (INO) | payer OTHER, SELFPAY ==
--- NOTE | 2024-10-26 08:54 | EKG12_ITS ---
Test Reason : PREOP Blood Pressure : */* mmHG Vent. Rate : 82 BPM Atrial Rate : 82 BPM P-R Int : 178 ms QRS Dur : 94 ms QT Int : 360 ms P-R-T Axes : 23 60 2 degrees QTcB Int : 420 ms Normal sinus rhythm Normal ECG Confirmed by Roney Howell ([id number]), editorial assistant CORRINE QUIGLEY ([id number]) on 10/27/2024 10:13:54 AM Referred By: Adonay Alexander Confirmed By: Roney Howell
[2024-10-26 09:30] LABS: Hematocrit 47.6 % (40-54); Hemoglobin 16.2 g/dL (13.0-16.5); Mean Corpuscular Hgb 29.3 pg (27.0-32.0); Mean Corpuscular Volume 86.1 fL (80-94); Mean Platelet Vol. 8.7 fl (6.2-12.0); Platelet Count 271 K/mm3 (150-450); RBC Distribution Width CV 13.1 % (11.6-14.6); RBC Distribution Width SD 40.6 fl (35.1-43.9); Red Blood Count 5.53 M/mm3 (4.6-6.2); White Blood Count 8.6 K/mm3 (4.4-11.0)
[2024-10-26 10:03] LABS: Anion Gap 11 (5-15); BUN 16 mg/dL (4-19); BUN/Creat Ratio 17.1 RATIO (10-20); Calcium,Total 9.6 mg/dL (7.6-11.0); Carbon Dioxide 26.6 mmol/L (21.0-32.0); Chloride 104 mmol/L (98-108); Creatinine, Serum 0.93 mg/dL (0.70-1.20); EST Glomerular Filtration Rate 107 (>60); Glucose 82 mg/dL (70-99); Sodium Level 141 mmol/L (133-145)
[2024-10-27] VITALS (14 sets, daily range): BP systolic 124–143; BP diastolic 83–101; PULSE 77–110; RESP 16–18; TEMP 36.2–37.4; O2SAT 93–99; BMI 36.3
--- NOTE | 2024-10-27 09:51 | PCM.PRE.AN2 ---
ASA Classification* ASA Classification ASA Classification: 3 Assessment & Plan Anesthesia* Anesthesia Assessment Anesthesia Assessment: Discussed sedation and/or anesthesia options, risks, benefits, and alternatives with patient/parents/legal guardian/POA. Questions invited. The patient/parents/legal guardian/POA seems to understand and agrees to proceed with anesthesia plan. Reviewed the physical assessment, medical history, allergy history and patient home medications list prior to surgery/procedure/anesthetic and documented any changes. Performed airway and anesthesia risk assessments. Anesthesia Type Anesthesia Type: General (Block if requested by surgeon) Anesthesia Focused Assessment* Temperature: 98.8 F Pulse Rate: 77 Blood Pressure: 126/85 Respiratory Rate: 18 Pulse Ox: 98 Airway Assessment Mouth opens: >3 cm Mallampati Score: II Labs Anesthesia Preop lab: CBC WBC 8.6 K/mm3 (4.4-11.0) 10/26/24 09:10 10/26/24 RBC 5.53 M/mm3 (4.6-6.2) 10/26/24 09:10/26/24 Hgb 16.2 g/dL (13.0-16.5) 10/26/24 09:10 10/26/24 Hct 47.6 % (40-54) 10/26/24 09:10 10/26/24 Plt Count 271 K/mm3 (150-450) 10/26/24 09:10 10/26/24 CHEMISTRY Potassium 4.0 mmol/L (3.3-5.1) 10/26/24 09:10 10/26/24 Sodium 141 mmol/L (133-145) 10/26/24 09:10 10/26/24 Magnesium 2.2 mg/dL (1.6-2.6) 08/06/22 05:43 08/06/22 Phosphorus 4.8 mg/dL (2.5-4.9) 08/06/22 05:43 08/06/22 BUN 16 mg/dL (4-19) 10/26/24 09:10 10/26/24 Creatinine 0.93 mg/dL (0.70-1.20) 10/26/24 09:10 10/26/24 Glucose 82 mg/dL (70-99) 10/26/24 09:10 10/26/24 POC Glucose 117 mg/dL (74-106) H 05/22/22 08:42 05/22/22 COAG PT 13.5 SECONDS (11.7-14.9) 05/22/22 08:42 05/22/22 Pre-Assessment Diagnosis/Proposed Procedure Planned Operative Procedure(s): RIGHT PATELLA ORIF Anesthesia History 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 When Was Last Pacemaker Check QUESTION #4 FULL TEXT: You/Your Family Experience fever (hyperthermia) with Anesthesia Last Oral Intake Last Oral intake: Last Oral Intake NPO since Meds taken in AM with sips of water? Meds patient instructed to take am of surgery PONV PONV - agricultural agent: PONV - agricultural agent Female No 10/20/24 10:55 HX of Motion Sickness No 10/20/24 10:55 HX of N/V After Surgery No 10/20/24 10:55 Non-Smoker Yes 10/20/24 10:55 Duration of Surgery greater Yes 10/20/24 10:55 than 60 minutes Number of Risk Factors 2 10/20/24 10:55 PONV Score Moderate Risk 10/20/24 10:55 Height & Weight Height & Weight: Anesthesia: Height & Weight Height 5 ft 6 in 10/27/24 09:42 Weight: 102.058 kg 10/27/24 09:42 Body Mass Index (BMI) 36.3 10/27/24 09:42 Respiratory Assessment Respiratory Assessment - agricultural agent: Respiratory Tract Infection Hx - agricultural agent Hx Respiratory Tract Infection No 10/20/24 10:55 STOP Sleep Apnea STOP Sleep Apnea - agricultural agent: STOP Sleep Apnea - agricultural agent Hx Hypertension Yes: NO MEDS FOR 1 YR 10/20/24 10:55 Hx Sleep Apnea No 10/20/24 10:55 CPAP BIPAP Do you snore loudly (louder No 10/20/24 10:55 than talking or can be heard Do you often feel tired/ Yes 10/20/24 10:55 fatigued/ sleepy during daytime? Has anyone observed you stop No 10/20/24 10:55 breathing during sleep? STOP Results Positive 10/20/24 10:55 QUESTION #5 FULL TEXT : Do you snore loudly (louder than talking or can be heard through closed doors)? 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 Specify any problems Hx of Preganancy in last 3 N/A 10/20/24 10:55 Months Nurse Filling Out Transfusion DSCHRIBER 10/20/24 10:55 & Questions: Date: 10/20/24 10/20/24 10:55 Time: 10:58 10/20/24 10:55 Patient unable to answer at this time (ie. confused, unrespo /Reproduction History /Reproductive History - agricultural agent: /Reproductive Hx- agricultural agent Hx Now No 10/20/24 10:55 Gestational Age (in weeks): EDC: Hx Hx Para Hx Section SAB No 10/20/24 10:55 Active Medications Active Medications: Current Medications Generic Name Dose Route Start Last Admin Trade Name Freq PRN Reason Stop Dose Admin Cefazolin Sodium 2 gm/ Sodium 110 mls @ 150 mls/hr 10/27/24 11:00 Chloride IV 10/27/24 11:43 INTRAOP ONE Lactated Ringer's 1,000 mls @ 15 mls/hr 10/27/24 09:45 IV .Q48H FRANKLYN PFSH Medical History Wears glasses Anxiety Abrasion High cholesterol Pulmonary embolism Migraine headache Non-smoker History of pain when walking History of edema Ambulates with cane Patella fracture Aphasia as late effect of stroke Hemiparesis affecting right side as late effect of cerebrovascular accident Generalized weakness Hyperlipidemia Ischemic cerebrovascular accident (CVA) Fecal incontinence Urinary incontinence Debility Current use of assisted anticoagulation DVT (deep venous thrombosis) Subarachnoid hemorrhage Dissection of cerebral artery Obesity (BMI 30-39.9) Arterial ischemic stroke, MCA (middle cerebral artery), left, acute Stroke/cerebrovascular accident Hypertension Home Medications ?Medication ?Instructions ?Recorded ?Last Taken ?Type acetaminophen 500 mg tablet 500 mg PO Q6H PRN fever or pain 07/18/22 10/26/24 18:00 Rx (Acetaminophen Pain Relief) #90 tabs ipratropium bromide 42 mcg (0.06 2 spray NASAL BID airway 08/05/22 10/27/24 History %) nasal spray cholecalciferol (vitamin D3) 125 125 mcg PO QDAY 10/14/24 10/26/24 History mcg (5,000 unit) capsule omega 6-opz-lev-fish oil 60 mg-90 1 cap PO QDAY 10/14/24 10/26/24 History mg-500 mg capsule (Fish Oil) FOUR LIFE 2 tab PO DAILY 10/20/24 10/26/24 History TRANSFACTOR 1 tab PO DAILY 10/20/24 10/26/24 History multivitamin (Daily Multi-Vitamin 1 tab PO DAILY 10/20/24 10/26/24 History tablet) Allergy/AdvReac Type Severity Reaction Status Date / Time No Known Allergies Allergy Verified 10/27/24 09:33 Surgical History History of cholecystectomy History of appendectomy Status post craniectomy Status post aneurysm repair Status post craniotomy Social History adopted: No household members: family housing: house number of children: 0 current occupational status: disabled Smoking Status: Never smoker alcohol intake: never substance use type: does not use Review of Systems (Anesthesia) ROS Narrative System reviewed and no additional complaints, except as documented.
[2024-10-27] MEDS: Lactated Ringers 1,000 ML 15 ML IV (09:53)
--- NOTE | 2024-10-27 10:00 | RAD_ITS ---
PROCEDURE: KNEE 1 OR 2 VIEWS 10/27/2024 REASON FOR EXAM: RT PATELLA ORIF TECHNIQUE: 6 fluoroscopic views. Fluoroscopy time: 70.2 seconds. Radiation: 2.18 mGy. COMPARISON: 10/09/2024. FINDINGS: Fluoroscopic images are provided. Open reduction internal fixation of patellar fracture in good alignment. Unremarkable metallic hardware. RAD/Knee 1 or 2 Views IMPRESSION: Open reduction internal fixation of patellar fracture in good alignment. Reading Location: [facility]
--- NOTE | 2024-10-27 10:18 | PCM.HP.STD ---
HPI - General HPI Narrative ANAND MARTÍNEZ, is a 38 M who presents for right patella open reduction internal fixation. no change to h and p. here with mom and dad. rab, post op instructions and narcotic counselling. tends to avoid narcotics. getting SW involved they want to do inpatient rehab / PT since very familiar with them. pending full post op plan regarding coming into hospital. right knee marked. ok to proceed. MR#: [id number] Acct: [id number] Name: ANAND MARTÍNEZ Rep #: [id number] : 1985 Provider: Dr. Adonay Alexander MD Age/Sex: 38/M [place] [facility] [place]: Signed Intake Vital Signs 10/10/2515:13 Height 5 ft 6 in BP 138/104 H Respiration 15 Pulse 89 Temp 97.5 F L Temp Source Temporal Pulse Oximetry (%) 96 Intake Visit Reasons: RIGHT KNEE Chief Complaint: Right Knee ER Follow-Up Is patient in pain?: Yes Pain scale (1-10): 6 Allergies No Known Allergies Allergy (Verified 10/14/24 13:33) Medications ?Medication ?Instructions ?Recorded ?Confirmed ?Type acetaminophen 500 mg tablet 500 mg PO Q6H PRN fever or pain 07/18/22 10/14/24 Rx (Acetaminophen Pain Relief) #90 tabs ipratropium bromide 42 mcg (0.06 2 spray NASAL BID airway 08/05/22 10/14/24 History %) nasal spray cholecalciferol (vitamin D3) 125 125 mcg PO QDAY 10/14/24 10/14/24 History mcg (5,000 unit) capsule multivitamin combination no.56 tab PO DAILY 10/14/24 10/14/24 History omega 5-les-ljw-fish oil 60 mg-90 1 cap PO QDAY 10/14/24 10/14/24 History mg-500 mg capsule (Fish Oil) PFSH Medical History Patella fracture Aphasia as late effect of stroke Hemiparesis affecting right side as late effect of cerebrovascular accident Generalized weakness Hyperlipidemia Ischemic cerebrovascular accident (CVA) Fecal incontinence Urinary incontinence Debility Current use of termite helper anticoagulation DVT (deep venous thrombosis) Subarachnoid hemorrhage Dissection of cerebral artery Obesity (BMI 30-39.9) Arterial ischemic stroke, MCA (middle cerebral artery), left, acute Stroke/cerebrovascular accident Hypertension Surgical History History of cholecystectomy History of appendectomy Status post craniectomy Status post aneurysm repair Status post craniotomy Social History adopted: No household members: family housing: house number of children: 0 current occupational status: disabled Smoking Status: Never smoker alcohol intake: never substance use type: does not use HPI RIGHT KNEE Details: This documentation accurately reflects the service provided and the decisions made by me, Dr. Adonay Alexander MD 10/14/24 0922. Part of today?s visit was documented by [ ], acting as scribe. ANAND MARTÍNEZ is a 38 year old M here today for right patella fracture. Patient fell. He has right-sided weakness. He normally walks with a cane here with his dad who is his power of patent prosecution attorney. He normally uses a ankle brace. Patient continues to have the ankle pain as well as signficant knee pain. per ED 38-year-old male with history of cerebral aneurysm status post rupture with secondary stroke with right sided deficits presenting from home after what sounds like mechanical fall. Patient was doing his daily exercises of walking up and down the driveway. Family found him kneeling on the driveway trying to get up. It seems like he slipped and fell. Patient does not remember exactly why he fell but states he just fell really fast. He denies hitting his head. He did not scratch his glasses or break them. He initially was complaining mostly of pain in his right ankle but since then he has had pain in his right knee as well. Addition he has some pain to his right hand and abrasion/milder pain to his left knee. Supplemental Info [facility] Imaging Services [address], [place] [id number] Knee 1 or 2 Views MR#: [id number] Acct: [id number] Name: ANAND MARTÍNEZ Rep #: [id number] : 1985 M 38 From: Sarika Boucher MD PCP: Dr. Mario Moreira, DO Status: REG ER Study: Knee 1 or 2 Views Date of Exam: 10/09/24 Exam# [id number] Ordering Dr: Fadia Warren DO PROCEDURE: KNEE 1 OR 2 VIEWS 10/09/2024 REASON FOR EXAM: INJURY/PAIN TECHNIQUE: 2 view(s) of the right knee COMPARISON: None. FINDINGS: Bones: Acute horizontal fracture of the patella with mild distraction of the fracture fragments. No suspicious osseous lesion. Joints: Normal alignment. Mild degenerative changes. Effusion: Moderate joint effusion. Soft tissues: Mild soft tissue swelling. RAD/Knee 1 or 2 Views IMPRESSION: Acute horizontal fracture of the patella. Moderate joint effusion. Reading Location: [facility] I independently reviewed the imaging. Concur with radiologist report. Coding Level of Care Code Off vis,new,level 4 Diagnoses Closed fracture of right patella S82.001A Assessment and Plan Assessment and Plan (1) Closed fracture of right patella: Status: Acute Plan: 38-year-old man with a R knee transverse displaced right patella fracture. Given the disruption of the extensor mechanism this is recommended for surgical fixation. Conservative management nonoperative treatment not typically recommended this would be in the form of a extension brace or long-leg cast. Typically without surgery result in delayed or nonunion or weakness of the extensor mechanism. Higher chance of osteoarthritis that being said surgery has its own set of risks as well. There would be a higher chance of complications as this patient has chronic weakness on the right side from a hemorrhagic stroke. Not on any blood thinners. The his dad does want to go ahead with and signed the consent form for right patella open reduction internal fixation. Remain in the knee immobilizer until then he can be weightbearing as tolerated he can remove the knee immobilizer at rest and will get a preoperative clearance to go ahead with the surgery. Pros and cons risks and benefits were discussed with the patient including but not limited to infection, pain, stiffness, bleeding, damage to surrounding structures, neurovascular injury, recurrence or retear, failure or wear of hardware or fixation, instability, fracture, deep vein thrombosis and pulmonary embolism, anesthetic risks, , patient dissatisfaction, need for further surgery and other risks. Patient understood and wished to proceed with surgery, and signed the informed consent documentation. Ortho Exam General General: Yes no acute distress Neurologic: Yes alert and Yes oriented x3 Psychologic: Yes reasonable and appropriate Right Knee Skin/Wound: Yes CDI, No erythema, No ecchymosis and Yes swelling Examination: Yes Med jt line tenderness, Yes Lat jt line tenderness, Yes TTP inf pole patella and Yes TTP Patellar tendon Quad Atrophy: No Stability: NML: Anterior Drawer, NML: Valgus 0, NML: Valgus 30, NML: Varus 0 and NML: Varus 30 Patellar Tilt Normal: Yes KNEE: NVI, using a knee immobilizer wears an ankle brace. He is able to just have a flicker of motion at the ankle. [facility] Medical History Wears glasses Anxiety Abrasion High cholesterol Pulmonary embolism Migraine headache Non-smoker History of pain when walking History of edema Ambulates with cane Patella fracture Aphasia as late effect of stroke Hemiparesis affecting right side as late effect of cerebrovascular accident Generalized weakness Hyperlipidemia Ischemic cerebrovascular accident (CVA) Fecal incontinence Urinary incontinence Debility Current use of care home anticoagulation DVT (deep venous thrombosis) Subarachnoid hemorrhage Dissection of cerebral artery Obesity (BMI 30-39.9) Arterial ischemic stroke, MCA (middle cerebral artery), left, acute Stroke/cerebrovascular accident Hypertension Home Medications ?Medication ?Instructions ?Recorded ?Last Taken ?Type acetaminophen 500 mg tablet 500 mg PO Q6H PRN fever or pain 07/18/22 10/26/24 18:00 Rx (Acetaminophen Pain Relief) #90 tabs ipratropium bromide 42 mcg (0.06 2 spray NASAL BID airway 08/05/22 10/27/24 History %) nasal spray cholecalciferol (vitamin D3) 125 125 mcg PO QDAY 10/14/24 10/26/24 History mcg (5,000 unit) capsule omega 5-gel-mdp-fish oil 60 mg-90 1 cap PO QDAY 10/14/24 10/26/24 History mg-500 mg capsule (Fish Oil) FOUR LIFE 2 tab PO DAILY 10/20/24 10/26/24 History TRANSFACTOR 1 tab PO DAILY 10/20/24 10/26/24 History multivitamin (Daily Multi-Vitamin 1 tab PO DAILY 10/20/24 10/26/24 History tablet) Allergy/AdvReac Type Severity Reaction Status Date / Time No Known Allergies Allergy Verified 10/27/24 09:33 Surgical History History of cholecystectomy History of appendectomy Status post craniectomy Status post aneurysm repair Status post craniotomy Social History adopted: No household members: family housing: house number of children: 0 current occupational status: disabled Smoking Status: Never smoker alcohol intake: never substance use type: does not use Vital Signs Vital Signs Vital Signs: 10/27/24 09:35 10/27/24 09:42 10/27/24 09:52 Temperature 98.8 F 98.8 F Temperature Source Temporal Pulse Rate 77 77 Respiratory Rate 18 18 Respiratory Pattern Normal Blood Pressure 126/85 H 126/85 H Blood Pressure Mean 98 Blood Pressure Source Monitor Blood Pressure Position Semi-Fowlers Blood Pressure Location Left Arm Pulse Ox 98 98 Oxygen Delivery Method Room Air Weight Weight: 225 lb Body Mass Index (BMI) 36.3 Results Lab / Micro Data 10/26/24 09:10 10/26/24 09:10
[2024-10-27] MEDS: Cefazolin 2 GM in 0.9% Normal Saline (100mL Bag) 100 ML IV (10:45)
--- NOTE | 2024-10-27 12:23 | PCM.OPRPT ---
Problems Associated Problem List Diagnoses (1) Patella fracture: Procedures Musculoskeletal 20xxx-29xxx: Other Procedure See Report Operative Report (Standard) Operative Information Date of Procedure: 10/27/24 Pre-Operative Diagnosis: Right patella fracture Post-Operative Diagnosis: Same Surgery/Procedure Performed: Right patella open reduction internal fixation, knee arthroscopy diagnostic turkey picker: Yes Vending Machine Technician: yajaira Tasks completed by airline pilot/first officer: Retracting Additional assistant athletic trainer?: No Type of Anesthesia: Block,Regional and General RN Documented Start/Stop Times: Operation Date: 10/27/24 11:00 Case Time Into Pre-Op 10/27/24 09:32 Anesthesia Start 10/27/24 10:45 Into Room 10/27/24 10:45 Procedure Start 10/27/24 11:05 Procedure End 10/27/24 12:17 Procedure Start Time: 11:05 Procedure Stop Time: 12:17 Select all DRAINS/GRAFTS/IMPLANTS that apply: Implanted device Implanted device details: Arthrex 46 mm long patella screws 4.0 mm with suture cerclage tape x 2 Estimated Blood Loss: 50 Specimen collected: No Description of surgery: Patient brought to the operating room theater. Placed supine on table. General anesthesia induced. 2 g IV Ancef administered prior to the start of the case. Bump under the right hip. Tourniquet applied the right thigh appropriately padded. All bony prominences padded. SCD on the nonoperative leg. Lower extremity prepped and draped in the usual sterile fashion with chlorhexidine-based prep solution allowing over 3 minutes drying time prior to draping. Preoperative timeout performed to confirm the site patient and the surgery. Began by limiting limb inflated the tourniquet to 250 mmHg. Made a standard anterior midline incision. The dissection down through skin and subcutaneous tissue to meticulous hemostasis. Dissected down to the level of the patella fracture. Removed any interposed hematoma and fracture periosteal tissue. Thoroughly irrigated the joint. Extended the knee used 2 fracture reduction clamps with the knee in full extension. Took AP lateral and oblique x-rays to ensure appropriate reduction of the articular surface of the patella. The next passed 2 wires from the Arthrex set from inferior to superior pole co-linear through the mid aspect of the patella. Used the Arthrex Itzel scope intra-articularly did a thorough washout irrigation exam of the fracture site this appeared to have no steps or gaps. Next I overdrilled the wires and then passed 2 46 mm long 4.0 mm diameter screws from inferior to superior ensure that they were not overly long and that they achieve good compression of the fracture site. Next use the Arthrex cerclage suture tape 1 through each screw with the suture stack knot at the proximal end of the quads tendon. Appropriately tensioned the sutures using the intraoperative tensioner to 2 landon lines. Final radiographs were taken AP and lateral. Fracture appropriately reduced with good hardware placement. Tourniquet let down meticulous hemostasis achieved. The retinaculum closed with 2-0 Vicryl sutures as well as the split in the quadriceps tendon and the patellar tendon areas were closed. Subcutaneous tissue closed with 2-0 Vicryl suture and skin with 3-0 Monocryl. Skin cleaned with wet dry dressing followed application of Steri-Strips Adaptic 4 x 4 gauze ABD dressing and Jett wrap with a hinged knee brace locked in full extension. Patient woken up from the general anesthetic transferred off the operating table taken to postanesthetic care unit in stable condition. All sponge and measured counts were correct no complications found the patient likely to be admitted for inpatient rehabilitation due to difficulties with care in the chronic hemiplegic weakness. PLAN WBAT in full extension with brace locked. CPT 73751, 28601 Surgical Findings: As above Complications Complications: No Admit VTE Documentation VTE Present on Admission: Yes VTE Mechan Device Prophylaxis: SCD's VTE Pharm Prophylaxis ordered?: No Reason prophylaxis not ordered: Treatment Not Indicated
--- NOTE | 2024-10-27 12:30 | PCM.POST.ANE ---
Anesthesia: Postop Eval I Current Vital Signs Temperature: 97.8 F Pulse Rate: 82 Blood Pressure: 129/90 Respiratory Rate: 16 Pulse Ox: 96 Assessment Airway patent: Yes Spontaneous unlabored respirations: Yes nausea: No Vomiting: No Anesthesia Complication: No Fluid Hydration Crystalloid volume administer (ml): 1,100 Total IV fluid infused: 1,100 Progress Note Anesthesia document: Postop Eval 1 completed: Yes
--- NOTE | 2024-10-27 12:42 | CASEMGMT ---
Care Management Received call from WILL Clements in , that patient's family requesting to speak to a social security assessor. This designer/writer aware of this patient and family, as this designer/writer had received communication from Raysa, media services director of [facility] and RU, that patient/family had been in contact with media services director prior to surgery, of wish for patient to go to some type of post acute rehab after surgery. -Met with patient's parents in room. Patient in surgery with Dr. Alexander. -Parents remembered this designer/writer from prior interactions for this patient at [facility]. -Patient's parents, whom the patient lives with, report the family have been trying to assist patient at home, with the the help of patient's sister too. Reports patient fell on the driveway a couple of weeks ago, the fracture was reset but became displaced and now having surgery for correction. -[facility] in place with patient's father, mother, and sister respectively listed. -Parents expresses concern for patient post surgery, looking for some additional help to support patient's healing and recovery, and would like to see patient have a short term placement for rehab - to help manage/monitor pain control and mobility. -Family reports patient has been to [facility] RU before with good outcomes, and would feel comfortable with patient going to RU (preferred) and if not to TCU as a second choice. -No patient list choices provided as family had done pre-planning on disposition, prior to patient coming into the hospital, and have clearly expressed their wishes for disposition. -Educated that patient will need PT/OT evaluations and from there media services director can review for acceptance/precertification of post acute level of care. -Father reports, should insurance deny patient for RU or SNF LOC then would look at private paying. -Note, patient currently has [place] insurance, but on 11-16-2024 patient's Medicare will become effective with [place] as secondary supplement. Dr. Alexander to room as SW was ending conversation. Provider aware of and agreement with trying to seek out post acute rehab for this patient. Message to [facility] [employer] Secretary, Vivek Fuentes, with update. Referral to Raysa in admissions for RU/TCU, indicating preference for RU. Handoff to acute SW team of anticipated plan. Will need to follow up with patient to ensure patient has no additional thoughts or concerns regarding requested plan. -JEROMY Aguirre
--- NOTE | 2024-10-27 12:42 | PCM.CONS.GEN ---
Assessment & Plan Assessment/Plan (1) Status post open reduction and internal fixation (ORIF) of fracture of right patella: PLAN: Plan Patient is a 38-year-old male who presented [facility] on 10/27/2024 for planned patellar fracture repair. Medicine consulted postoperatively for medical management. 1. Right patellar fracture ? Orthopedic surgery primary. Recent mechanical fall with right patella fracture. S/p right patella ORIF with Dr. Alexander on 10/27. Tolerated procedure well, no intraoperative complications. Pain control, DVT prophylaxis and other postoperative management per orthopedics. PT/OT/case management following. 2. 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 Per history. Currently stable at baseline. Complicates hospital course, care and prognosis. 3. Class II obesity ? BMI 36. Complicates hospital course, care and prognosis. DVT prophylaxis: Defer to orthopedics Total clinical time spent by myself addressing the patient's medical issues, reviewing all the data, and collaborating with patient's care team: 35 minutes. HPI Consult Data Date of Consult: 10/27/24 HPI Narrative Reason for Consultation: Postoperative medical management HPI Narrative: ANAND MARTÍNEZ, is a 38 M who presented to [facility] on 10/27/2024 for planned patellar fracture repair. Medicine consulted postoperatively for medical management. S/p right patella ORIF with Dr. Alexander today. Patient tolerated well, no intraoperative complications noted. Saw patient at bedside this afternoon, mother and father present. Patient was sitting up comfortably in bedside chair, conversing normally and in no acute distress. Reported very mild knee pain currently and otherwise reported generalized weakness but no other pain or discomfort. Had just eaten a good late lunch when I saw him and tolerated this without issue. No other acute concerns at this time. [facility] Medical History Wears glasses Anxiety Abrasion High cholesterol Pulmonary embolism Migraine headache Non-smoker History of pain when walking History of edema Ambulates with cane Patella fracture Aphasia as late effect of stroke Hemiparesis affecting right side as late effect of cerebrovascular accident Generalized weakness Hyperlipidemia Ischemic cerebrovascular accident (CVA) Fecal incontinence Urinary incontinence Debility Current use of snf anticoagulation DVT (deep venous thrombosis) Subarachnoid hemorrhage Dissection of cerebral artery Obesity (BMI 30-39.9) Arterial ischemic stroke, MCA (middle cerebral artery), left, acute Stroke/cerebrovascular accident Hypertension Home Medications ?Medication ?Instructions ?Recorded ?Last Taken ?Type acetaminophen 500 mg tablet 500 mg PO Q6H PRN fever or pain 07/18/22 10/26/24 18:00 Rx (Acetaminophen Pain Relief) #90 tabs ipratropium bromide 42 mcg (0.06 2 spray NASAL BID airway 08/05/22 10/27/24 History %) nasal spray cholecalciferol (vitamin D3) 125 125 mcg PO QDAY 10/14/24 10/26/24 History mcg (5,000 unit) capsule omega 0-nnj-izk-fish oil 60 mg-90 1 cap PO QDAY 10/14/24 10/26/24 History mg-500 mg capsule (Fish Oil) FOUR LIFE 2 tab PO DAILY 10/20/24 10/26/24 History TRANSFACTOR 1 tab PO DAILY 10/20/24 10/26/24 History multivitamin (Daily Multi-Vitamin 1 tab PO DAILY 10/20/24 10/26/24 History tablet) Allergy/AdvReac Type Severity Reaction Status Date / Time No Known Allergies Allergy Verified 10/27/24 09:33 Surgical History History of cholecystectomy History of appendectomy Status post craniectomy Status post aneurysm repair Status post craniotomy Social History adopted: No household members: family housing: house number of children: 0 current occupational status: disabled Smoking Status: Never smoker alcohol intake: never substance use type: does not use ROS Constitutional Constitutional: Denies chills, fatigue, fever(s) or weakness Eyes Eyes: Denies change in vision Cardiovascular Cardiovascular: Denies chest pain Respiratory/Chest Respiratory/Chest: Denies shortness of breath at rest Gastrointestinal Gastrointestinal: Denies abdominal pain Musculoskeletal Musculoskeletal: Denies arthralgias or myalgias Physical Exam Const alert, oriented x3 and no apparent distress Constitutional Narrative: Pleasant middle-age male, sitting up comfortably in bedside chair, answering questions appropriately, in no acute distress. General Appearance: cooperative and comfortable HEENT normocephalic, head/scalp atraumatic, hearing grossly normal bilaterally, nasal mucous membranes and turbinates normal and moist oral mucous membranes Eyes PERRL, EOMs intact bilaterally and conjunctivae normal Neck full ROM Chest inspection of chest normal Resp normal respiratory effort, normal air movement, no use of accessory muscles and clear to auscultation bilaterally Cardio regular rate, regular rhythm, no murmurs and peripheral pulses 2+ throughout GI normal to inspection, nondistended, normoactive bowel sounds, soft to palpation, non-tender and non-distended Skin no rashes or lesions noted Neuro Neuro Narrative: Chronic right-sided hemiparesis noted. Psych mental status grossly normal Lab / Micro Data 10/26/24 09:10 10/26/24 09:10 Charges/Coding Visit Charges Inpatient E&M: 13776 Subs Hosp L2
--- NOTE | 2024-10-27 13:55 | POSTOPAN2_ITS ---
Anesthesia Postop Eval I Sum Postop Eval Completion status Anesthesia document: Postop Eval 1 completed: Yes Anesthesia Postop Eval I Summary Anesthesia Postop Eval I Summary: Anesthesia Postop Eval I: Assessment Summary Airway patent Yes 10/27/24 12:30 HEALTH CARE [email or web address] Spontaneous unlabored Yes 10/27/24 12:30 HEALTH CARE [email or web address] respirations Mental status nausea No 10/27/24 12:30 HEALTH CARE [email or web address] Vomiting No 10/27/24 12:30 HEALTH CARE [email or web address] Anesthesia Postop Eval I: Fluid Summary Crystalloid volume administer 1,100 10/27/24 12:30 HEALTH CARE [email or web address] (ml) Colloids volume administered ( ml) Blood Product volume administered (ml) Total IV fluid infused 1,100 10/27/24 12:30 HEALTH CARE [email or web address] Anesthesia Postop Eval I: Summary Notes Anesthesia Complication No 10/27/24 12:30 HEALTH CARE [email or web address] Anesthesia Complication Comment: Post-operative progress note Anesthesia: Postop Eval II Evaluation Mental status: Awake Pain Level: 2 nausea: No Vomiting: No
--- NOTE | 2024-10-27 13:55 | PCM.POSTANE2 ---
Anesthesia Postop Eval I Sum Postop Eval Completion status Anesthesia document: Postop Eval 1 completed: Yes Anesthesia Postop Eval I Summary Anesthesia Postop Eval I Summary: Anesthesia Postop Eval I: Assessment Summary Airway patent Yes 10/27/24 12:30 [email or web address] Spontaneous unlabored Yes 10/27/24 12:30 [email or web address] respirations Mental status nausea No 10/27/24 12:30 [email or web address] Vomiting No 10/27/24 12:30 [email or web address] Anesthesia Postop Eval I: Fluid Summary Crystalloid volume administer 1,100 10/27/24 12:30 [email or web address] (ml) Colloids volume administered ( ml) Blood Product volume administered (ml) Total IV fluid infused 1,100 10/27/24 12:30 [email or web address] Anesthesia Postop Eval I: Summary Notes Anesthesia Complication No 10/27/24 12:30 [email or web address] [email or web address] Anesthesia Complication Comment: Post-operative progress note Anesthesia: Postop Eval II Evaluation Mental status: Awake Pain Level: 2 nausea: No Vomiting: No
[2024-10-27] MEDS: HYDROcodone Bitartrate/Apap 5/325 Tablet PO ×2 (14:50→20:52)
[2024-10-28] VITALS (7 sets, daily range): BP systolic 126–132; BP diastolic 79–91; PULSE 89–96; RESP 16; TEMP 36.4–37.1; O2SAT 95–97
[2024-10-28 06:16] LABS: Hematocrit 44.2 % (40-54); Hemoglobin 15.1 g/dL (13.0-16.5); Mean Corp Hgb Conc 34.2 g/dL (32-36); Mean Corpuscular Volume 84.8 fL (80-94); Mean Platelet Vol. 8.9 fl (6.2-12.0); Platelet Count 290 K/mm3 (150-450); RBC Distribution Width CV 13.1 % (11.6-14.6); RBC Distribution Width SD 40.2 fl (35.1-43.9); Red Blood Count 5.21 M/mm3 (4.6-6.2); White Blood Count 12.2 K/mm3 (4.4-11.0)
[2024-10-28 06:51] LABS: Anion Gap 11 (5-15); BUN 12 mg/dL (4-19); BUN/Creat Ratio 15.1 RATIO (10-20); Calcium,Total 9.2 mg/dL (7.6-11.0); Carbon Dioxide 23.2 mmol/L (21.0-32.0); Chloride 104 mmol/L (98-108); Creatinine, Serum 0.79 mg/dL (0.70-1.20); EST Glomerular Filtration Rate 115 (>60); Estimated Creatinine Clearance 139.07 ml/min (50-250); Glucose 111 mg/dL (70-99); Potassium 4.3 mmol/L (3.3-5.1); Sodium Level 138 mmol/L (133-145)
[2024-10-28] MEDS: Multivitamins,Therapeutic Tablet 1 TABLET PO (08:12)
[2024-10-28] MEDS: Cholecalciferol (Vit D3) 125 MCG CAPSULE (5,000 UNITS) PO (08:12)
[2024-10-28] MEDS: Ipratropium Bromide 0.06% NASAL SPRAY 2 SPRAY NASAL ×2 (08:15→20:02)
[2024-10-28] MEDS: HYDROcodone Bitartrate/Apap 5/325 Tablet PO ×2 (08:15→20:09)
[2024-10-28] MEDS: Acetaminophen 325 MG Tablet 650 MG PO (13:01)
--- NOTE | 2024-10-28 13:52 | CASEMGMT ---
Social Work- RAMSEY collaborated with [facility] admissions regarding pt precert. RAMSEY met with pt and pt mother to provide updates on pending status. RAMSEY called pt sister to update. RAMSEY remains available to follow. NEREYDA Martin
--- NOTE | 2024-10-28 14:58 | CASEMGMT ---
Social Work- SW received notification that precert has been obtained. SW updated pt and family, as well as surgeon. SW remains available to follow. Plan: [facility]; skilled level of care NEREYDA Martin
[2024-10-29 02:58] VITALS: BP 126/96; PULSE 80; RESP 16; TEMP 36.5; O2SAT 95
[2024-10-29] MEDS: Cholecalciferol (Vit D3) 125 MCG CAPSULE (5,000 UNITS) PO (08:02)
[2024-10-29] MEDS: Ipratropium Bromide 0.06% NASAL SPRAY 2 SPRAY NASAL (08:02)
[2024-10-29] MEDS: Acetaminophen 325 MG Tablet 650 MG PO (08:02)
[2024-10-29] MEDS: Multivitamins,Therapeutic Tablet 1 TABLET PO (08:03)
[2024-10-29] MEDS: Lactated Ringers 1,000 ML 15 ML IV (08:19)
[2024-10-29] MEDS: 0.9% Saline Lock 10 ML Syringe IV (08:19)
--- NOTE | 2024-10-29 08:38 | NURSING ---
attempted to reach dr urbina for emelialy dc to rehab unit. left brief msg that pt in 319 needed to be dc'd early this am to rehab.
--- NOTE | 2024-10-29 08:53 | DCINST_ITS ---
Discharge Instructions Diet Discharge Diet: No restrictions DC O2, CPAP, BIPAP needs Home O2 Discharge instructions: No Dressing / Incision Discharge Activity: Use Crutches Weight Bearing Status: Weight bearing as tolerated Lifting Restrictions: weight bearing as tolerated with knee straight (in full extension in brace) Keep extremity elevated above heart level: Operative Extremity Additional Activity Instructions:: OK for passive ROM 0-30 week 0-2, then increase by 15 degrees a week Dressing / Incision Call your doctor if your incision/area has: Continuous Slow Oozing, Sudden Increased Bleeding, Increased Pain/ Swelling, Increased Redness, Foul Smelling Discharge and Swelling at the incision site Call your doctor if you observe: Fever of 101 or Higher, Coldness, Increased Pain and Numbness or Tingling Change Dressing in: 2 days Cleanse incision/area with: Do not get Incision Wet Follow Up Care Please Follow Up With: Adonay Alexander MD When: 2 weeks Test Results: Test results from this visit will be discussed in further detail at your follow- up appointment, if applicable. Discharge Plan Admission Admit Date/Time: 10/27/24 12:37 Primary Reason for Your Visit: post op patella ORIF needs rehab bed Attending Provider: Adonay Alexander Primary Care Provider: Mario Moreira Consulting Providers: Vinnie Felder; Jerry Lujan Discharge Orders/Prescriptions Prescriptions: No Action omega 0-ghu-hbi-fish oil [Fish Oil] 60-90-500 mg capsule 1 cap PO QDAY cholecalciferol (vitamin D3) 125 mcg (5,000 unit) capsule 125 mcg PO QDAY acetaminophen [Acetaminophen Pain Relief] 500 mg tablet 500 mg PO Q6H PRN (Reason: fever or pain) Qty: 90 6RF Rx Instructions: 1-2 tabs PO every 6 hours as needed for pain or fever ipratropium bromide 42 mcg (0.06 %) spray,non-aerosol 2 spray NASAL BID multivitamin [Daily Multi-Vitamin] Tablet 1 tab PO DAILY TRANSFACTOR 1 tab PO DAILY FOUR LIFE 2 tab PO DAILY Referrals / Follow Up: Mario Moreira DO [Primary Care Provider] - Adonay Alexander MD [Med Staff - Active Staff] - Disposition Disposition (needs filled in before D/C Order can be placed): [facility]
--- NOTE | 2024-10-29 08:59 | DS.PCM_ITS ---
Providers Date of Admission: 10/27/24 Primary Care Physician: Dr. Mario Moreira DO Consultations 10/27/24 12:40 Consult: Hospitalist Routine Consulting Provider: Jerry Lujan Reason for Consult: medical management post op EMERGENT Consult: No MD Notified: Yes Date Notified: 10/27/24 Time Notified: 12:40 Method of Notification: Verbal Reason For Visit: Right patella open reduction internal fixation Diagnosis Discharge Diagnosis (1) Status post open reduction and internal fixation (ORIF) of fracture of right patella: Status: Acute Code(s): Z98.890 - Other specified postprocedural states; Z87.81 - Personal history of (healed) traumatic fracture Medications at Discharge Home Medications acetaminophen 500 mg tablet (Acetaminophen Pain Relief) 500 mg PO Q6H PRN fever or pain #90 tabs 07/18/22 ipratropium bromide 42 mcg (0.06 %) nasal spray 2 spray NASAL BID airway 08/05/22 cholecalciferol (vitamin D3) 125 mcg (5,000 unit) capsule 125 mcg PO QDAY 10/14/24 omega 9-mmh-icc-fish oil 60 mg-90 mg-500 mg capsule (Fish Oil) 1 cap PO QDAY 10/14/24 FOUR LIFE 2 tab PO DAILY 10/20/24 TRANSFACTOR 1 tab PO DAILY 10/20/24 multivitamin (Daily Multi-Vitamin tablet) 1 tab PO DAILY 10/20/24 Hospital Course Summary of Care Provided Minutes Spent on Discharge: 15 Hospital Course: benign Physical Exam Narrative no concerns Weight / BMI Weight Weight: 225 lb Body Mass Index (BMI) 36.3 ABG / Lab / Microbiology Data 10/28/24 05:50 10/28/24 05:50 D/C Instructions Discharge Diet: No restrictions Weight Bearing Status: Weight bearing as tolerated Keep extremity elevated above heart level: Operative Extremity Additional Activity Instructions: OK for passive ROM 0-30 week 0-2, then increase by 15 degrees a week Call your doctor if your incision/area has: Continuous Slow Oozing, Sudden Increased Bleeding, Increased Pain/ Swelling, Increased Redness, Foul Smelling Discharge and Swelling at the incision site Call your doctor if you observe: Fever of 101 or Higher, Coldness, Increased Pain and Numbness or Tingling Cleanse incision/area with: Do not get Incision Wet DC O2, CPAP, BIPAP Needs Home O2 Discharge instructions: No Please Follow Up With: Adonay Alexander MD When: 2 weeks Meaningful Use Info Meaningful Use Meaningful Use Diagnoses (Choose all that apply): None applicable Ischemic Stroke Statin Dosing Therapy Reference: STATIN DOSE THERAPY REFERENCE: * Patients > 75 years receive moderate or high dose statin therapy. * Patients 75 years or YOUNGER should receive HIGH intensity statin dose unless contraindicated. You will be required to document reason for non-treatment if statin daily dose does not meet guidelines. HIGH DOSE STATIN THERAPY DAILY Atorvastatin > than or = to 40 mg Rosuvastatin > than or = to 20 mg Amlodipine + Atorvastatin > than or = to 2.5/40 mg Ezetimibe + Simvastatin 10/80 mg Simvastatin 80mg Discharge Plan Admission Admit Date/Time: 10/27/24 12:37 Primary Reason for Your Visit: post op patella ORIF needs rehab bed Attending Provider: Adonay Alexander Primary Care Provider: Mario Moreira Consulting Providers: Vinnie Felder; Jerry Lujan Discharge Orders/Prescriptions Prescriptions: No Action omega 4-jvk-sgk-fish oil [Fish Oil] 60-90-500 mg capsule 1 cap PO QDAY cholecalciferol (vitamin D3) 125 mcg (5,000 unit) capsule 125 mcg PO QDAY acetaminophen [Acetaminophen Pain Relief] 500 mg tablet 500 mg PO Q6H PRN (Reason: fever or pain) Qty: 90 6RF Rx Instructions: 1-2 tabs PO every 6 hours as needed for pain or fever ipratropium bromide 42 mcg (0.06 %) spray,non-aerosol 2 spray NASAL BID multivitamin [Daily Multi-Vitamin] Tablet 1 tab PO DAILY TRANSFACTOR 1 tab PO DAILY FOUR LIFE 2 tab PO DAILY Referrals / Follow Up: Mario Moreira DO [Primary Care Provider] - Adonay Alexander MD [Med Staff - Active Staff] - Disposition Disposition (needs filled in before D/C Order can be placed): [facility]
[2024-10-29 09:00] VITALS: BP 128/94; PULSE 91; RESP 16; TEMP 36.3; O2SAT 95
--- NOTE | 2024-10-29 09:37 | CASEMGMT ---
Social Work Pt has been approved to go to [facility]. Physician feels pt is ready for dc today and dc has been given. RAMSEY met with pt and pt mother Deana and confirmed dc plan and pt is agreeable. Raysa in [facility] notified of dc. RAMSEY updated RN. Disposition: Inpatient Rehab Unit NEREYDA Conley
== END 2024-10-29 13:55 | disposition home or self-care (01) ==
LOC: SDC 13:24 → MS3 13:24
PROVIDERS: Hospitalist; Student in an Organized Health Care Education/Training Program; Admitting Provider Orthopaedic Surgery Sports Medicine; PCP Family Medicine; Referring Provider Orthopaedic Surgery Sports Medicine; Visit Provider Orthopaedic Surgery Sports Medicine
PROC: (CPT 27524; principal; 2024-10-27 10:45)
DX: S82.001A Unspecified fracture of right patella, initial encounter for closed fracture (principal); I69.351 Hemiplegia and hemiparesis following cerebral infarction affecting right dominant side; W01.0XXA Fall on same level from slipping, tripping and stumbling without subsequent striking against object, initial encounter; I10 Essential (primary) hypertension; E78.00 Pure hypercholesterolemia, unspecified; M79.641 Pain in right hand; M25.571 Pain in right ankle and joints of right foot; Z79.899 Other long term (current) drug therapy; I69.320 Aphasia following cerebral infarction; Z86.718 Personal history of other venous thrombosis and embolism
CPT/HCPCS: 29870; 27524; 01392; 36415; 73560; 76000; 80048; 85027; 93005; 94668; 97116; 97162; 97167; 97530; 99221; C1713; A4216; G0378; J2405

== ENCOUNTER 2024-10-29 14:42 | Inpatient (IN) | payer OTHER, SELFPAY ==
[2024-10-29 14:46] VITALS: BP 140/98; PULSE 103; RESP 18; TEMP 37.2; O2SAT 95
--- NOTE | 2024-10-29 15:56 | HP.PCM_ITS ---
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 He returned to rehab in August 2022 following replacement of the bone flap that was removed at the time of the initial craniectomy. 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 Romeo was seen in the emergency room on 10/09/2024 after a mechanical ground- level fall at home while walking up and down his driveway. The right ankle showed severe diffuse osseous demineralization with no obvious fracture or dislocation. He was placed in a knee immobilizer and instructed to follow-up as an outpatient with Dr. Alexander. There was disruption of the extensor mechanism in the right knee and Dr. Alexander recommended surgical fixation. Romeo was admitted to [facility] on 10/27/2024 and underwent open reduction internal fixation of the right patella fracture. Romeo was transferred to the acute inpatient rehab unit at [facility] on 10/29/2024 for 3 hours of therapy daily to restore function/independence at or near his level prior to the recent fracture. He is weightbearing as tolerated and has a TROM brace on the R knee. The knee is braced into extension. [facility] Medical History (Updated 10/29/24 @ 18:[address] 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 DVT (deep venous thrombosis) Subarachnoid hemorrhage Dissection of cerebral artery Obesity (BMI 30-39.9) Arterial ischemic stroke, MCA (middle cerebral artery), left, acute Stroke/cerebrovascular accident Hypertension Home Medications ?Medication ?Instructions ?Recorded ?Last Taken ?Type ipratropium bromide 42 mcg (0.[address] 08/05/22 10/29/24 History %) nasal spray cholecalciferol (vitamin D3) 125 125 mcg PO QDAY suppl ement 10/14/24 10/29/24 History mcg (5,000 unit) capsule omega 6-asu-csz-fish oil 60 mg-90 1 cap PO QDAY supple ment 10/14/24 10/26/24 History mg-500 mg capsule (Fish Oil) FOUR LIFE 2 tab PO DAILY supplement 10/26/24 History Held on 10/29/24. Instructions: bring from home TRANSFACTOR 1 tab PO DAILY supplement 10/26/24 History Held on 10/29/24. Instructions: bring from home multivitamin (Daily Multi-Vitamin 1 tab PO DAILY suppl ement 10/20/24 10/29/24 History tablet) acetaminophen 500 mg tablet 1,000 mg PO Q8 apin 10/29/24 History (Acetaminophen Pain Relief) Allergy/AdvReac Type Severity Reaction Status Date / Time No Known Allergies Allergy Verified 10/27/24 09:33 Family History unable to obtain Surgical History History of cholecystectomy History of appendectomy Status post craniectomy Status post aneurysm repair Status post craniotomy Social History adopted: No household members: family housing: house number of children: 0 current occupational status: disabled Smoking Status: Never smoker alcohol intake: never substance use type: does not use ROS Review of Systems ROS Unobtainable: other Details: Limited due to persistent mild cognitive dysfunction since CVA in 2022. Able to answer simple questions. Constitutional Constitutional: Reports difficulty sleeping and other Details: Having some problems with sleeping now due to pain. ; Denies anorexia, change in weight, chills or frequent falls Vital Signs Vital Signs Vital Signs: 10/29/24 14:46 Temperature 98.9 F Temperature Source Temporal Pulse Rate 103 H Respiratory Rate 18 Blood Pressure 140/98 H Blood Pressure Mean 112 Blood Pressure Source Monitor Blood Pressure Position Sitting Blood Pressure Location Right Arm Pulse Ox 95 Oxygen Delivery Method Room Air Physical Exam Const alert and no apparent distress Constitutional Narrative: Sitting in the recliner with his legs elevated. Pleasant and appropriate. Makes good eye contact with me. General Appearance: cooperative, well kempt and well hydrated HEENT normocephalic, head/scalp atraumatic, hearing grossly normal bilaterally and moist oral mucous membranes Eyes PERRL, EOMs intact bilaterally, conjunctivae normal and no scleral icterus Eyes Narrative: No discharge from the eyes. General Eye: normal appearance of both eyes Neck supple, No nodes and no carotid bruits General: trachea midline Chest Chest: symmetrical chest wall rise Resp normal respiratory effort, normal air movement and clear to auscultation bilaterally Cardio regular rate, regular rhythm, S1 normal heart sound, S2 normal heart sound, no murmurs, no rub and no gallops Cardio Narrative: No ectopy GI normal to inspection, nondistended, normoactive bowel sounds and soft to palpation GI Narrative: No guarding with palpation. Denies nausea/vomiting/abdominal pain. Tells me he has not had a bowel movement in the past 2 days. no CVA tenderness Extremity no calf tenderness Extremity Narrative: No ankle edema. TROM brace is in place RLE Skin no jaundice General Skin Exam: no breakdown Rashes: no rashes Neuro moves all extremities Neuro Narrative: Persistent R hemiparesis since the CVA/intracerebral bleed in May. Alert and pleasant. Speech is slow but, easy to understand. Sensorium / Orientation: oriented to person and oriented to place Psych cooperative, affect normal and denies suicidal ideation Psych Narrative: He was tearful when getting up from the WC with PT......I suspect this was related to pain. Tells us he was only taking Tylenol for pain. Appearance: grossly normal, appropriate and well kempt Attitude: calm and engaged Activity / Motor Behavior: appropriate eye contact Speech: slow Mood & Affect: tearful; Negative for depressed, anxious or constricted affect Assessment & Plan Assessment/Plan (1) Physical debility: (2) Patella fracture: QUALIFIERS: Encounter type: subsequent encounter Fracture type: closed Fracture morphology: unspecified fracture morphology Fracture alignment: nondisplaced Laterality: right (3) Status post open reduction and internal fixation (ORIF) of fracture of right patella: (4) Other acute postprocedural pain: (5) Cognitive dysfunction due to stroke: (6) Obesity (BMI 30.0-34.9): (7) Urinary incontinence as sequela of cerebrovascular accident (CVA): PLAN: Plan PLAN PT for gait stability OT for ADL's Analgesics as needed Bowel protocol Fall precautions Assess for Anxiety/Depression GI prophylaxis -not necessary. Asymptomatic. DVT prophylaxis with aspirin 81 mg twice daily Follow up with PCP, Dr. Alexander following DC from IP Rehab AM lab including CMP, CBC, Mag and Phos Acetaminophen 1000 mg every 8 hours for pain control Oxycodone 5 to 10 mg every 4 hours as needed pain Tizanidine 2 mg 3 times daily for muscle spasms in the right leg Charges/Coding Visit Charges Inpatient E&M: 50354 Init Hosp L2
--- NOTE | 2024-10-29 18:56 | PCM.RU.PYE ---
Admission Information Primary Diagnosis:: Debility secondary to right patella fracture/ORIF Status Changes from Prescreening?: No changes Identified Actual Problem List:: Falls, Skin Intergrity, Pain, ALteration in Cmfrt, Cognitve Impr/Memory Loss, Bladder Incontinence, Alteration in Sleep, Mobility Impaired, Self Care Deficit and Alteration-Leisure Activ. Potential Problem List:: DVT, Bleeding, Infection, UTI, Aspiration, Falls, Skin Integrity and Depression Risk of Complications DVT: ABNER [place] and - (Aspirin 81 mg twice daily) Bleeding: Monitor Lab Values, Nursing to Teach Precautions for anti-coagulation therapy., Wound, if applicable, to be assessed every shift. and Stroke patients assessed for lethargy or change in status. Infection: Clinical Staff to Monitor for S/S of infection: and S/S of infection include fever, redness, warmth, etc. Urinary Tract Infection: Monitor for frequency, burning, discomfort, or incontinence. and Nursing will obtain urine sample for urinalysis and C&S when ordered. Aspiration: Clinical staff will monitor for coughing, drooling, congestion., Speech will evaluate swallowing and dsyphasia. and Nursing will monitor patient swallowing during meals. Falls: Patient will be evaluated for Fall Precautions and Patient will be placed on Fall Precautions as indicated per protocol. Skin Breakdown: Nursing will assess skin daily using assessment tool. and Nursing will place on Skin Breakdown Precautions as indicated. Pain: Clinical staff will assess patient's pain level per protocol., Medications will be given, if needed, and the pain level reassessed. and Other methods: Massage, distraction, decrease stimulus, etc. used PRN. Plan of Care Patient requires physician specializing in physical medicine and rehab oversight to provide close medical supervision of rehab issues including: Pain Management, Sleep Problems, Bowel and Bladder, Medical and co-morbidity Management, DVT prophylaxis, Rehabilitation Leadership and Coordination of treatment team Patient needs Physical Therapy: For a minimum of 1 hour and At least 5 out of 7 days Patient needs Physical Therapy to improve:: Mobility, Strengthening, Transfers, Stretching, ROM, Endurance, Stairs, Gait and Balance Patient needs Occupational Therapy: For a minimum of 1 hour and At least 5 out of 7 days Patient needs Occupational Therapy to improve ADL's incl.: Eating, Grooming, Bathing, Dressing, Toileting, Toilet transfers, Community Reintegration, Higher functioning activities, Household tasks, Adaptive Equipment, Splinting and Other activities as determined Patient requires 24/7 Rehabilitation Nursing for: Pain Issues, Identifying and preventing risk factors, Monitoring and reporting current medical conditions, Assisting with ambulation, transfer, and all ADL's, Teaching patients about disease process and medications, Family teaching, Providing safe environment, Bowel and Bladder Issues, Skin integrity and Medication Management Patient needs Retail 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 Patient will perform bed mobility at: MOD I level of assist. Patient will complete transfers from bed to chair at: - (Contact-guard assist/standby assist) Patient will ambulate: - (165 feet with least restrictive device at standby assist/contact-guard assist on various surfaces) Patient will complete upper body dressing at: - (Set up) Patient will complete lower body dressing at: - (Moderate assistance with adaptive equipment as needed) Patient will complete toilet transfer at: - (Supervision) Patient will complete toileting at: - (Supervision) Patient will perform bathing at: - (Upper body bathing at min assist and lower body bathing at min assist with adaptive equipment as needed) Patient will perform Tub/Shower transfer at: - (Supervision using DME as needed) Patient will complete grooming at: MOD I level of assist. (While seated at the sink) Patient will achieve: - (1 curb step with least restrictive device) Patient will have pain level of: of 3 or less Patient's skin will: remain intact Patient will receive: adequate nutrition. Discharge Planning Pt Prognosis for Sig. Practical Improv. w/in Reasonable Time: Good Estimated Length of stay (days): 28 Anticipated D/C Destination: Home w/ family or friends Was Preadmission Assessment Accurate?: Yes
--- OUTSIDE RECORDS SUMMARY | 2024-10-29 19:44 | XMS RPT_ITS | CCD ---
Author Organization [facility] Care Team Providers Care Director [employer] Name Role Phone KRISTYN WALLACE DO Attending Unava ilable DR ANDER NICHOLSON DO Primary Care Unavailab le Ander Nicholson DO Primary Care Provider Dr. Ander Nicholson Primary Care Provider [phone] Rodrigo, Dr. Kristyn Robles Admit Provider Rodrigo, Dr. Kristyn Robles Attending Provider Semenbea, Dr. Kristyn Robles Other Provider Dr. Yovany Hadley Attending Provider Sementi, Dr. Kristyn Robles Referring Provider Dr. Ander Nicholson Primary Care Provider Rodrigo, Dr. Kristyn Robles Admit Provider Rodrigo, Dr. Kristyn Robles Attending Provider Rodrigo, Dr. Kristyn Robles Other Provider Semenbea, Dr. Kristyn Robles Referring Provider Dr. Ander Nicholson Primary Care Provider Sementi, Dr. Kristyn Robles Admit Provider Semenbea, Dr. Kristyn Robles Attending Provider Rodrigo, Dr. Kristyn Robles Other Provider SELF, SELF Primary Care Unavailable EYAD MUJICA Admitting Unavailable EYAD MUJICA Attending Unavailable EYAD MUJICA Attending Unavailable SELF, SELF Primary Care Unavailable CONSULT, SURGERY - NEURO Consulting Unavail able ARMEN ALEXIS Referring Unavailable JAI KELLY Admitting Unavailable TIFFANIE RONQUILLO Attending Unavailable TIFFANIE RONQUILLO Referring Unavailable BHARAT, ANDER A Primary Care Unavailable LORRAINE PAYAN Referring Unavailable BHARAT, ANDER A Primary Care Unavailable EYAD MUJICA Attending Unavailable BHARAT, ANDER A Primary Care Unavailable BHARAT, ANDER A Referring Unavailable EYAD MUJICA Attending Unavailable Dr. Ander Nicholson DO Primary Care Provider [phone] Dr. Fadia Warren DO Emergency Provider Adonay Alexander MD Attending Provider Dr. Ander Nicholson DO Referring Provider Bharat, Ander Primary Care Unavailable Bharat, Ander Attending Unavailable Bharat, Ander Referring Unavailable Bharat, Ander Primary Care Unavailable Fadia Warren Attending Unavailable Bharat, Ander Referring Unavailable Bharat, Ander Primary Care Unavailable Mollison, Adonay Attending Unavailable Bharat, Ander Primary Care Unavailable Vinnie Felder Consulting Unavailable Adonay Alexander Attending Unavailable Adonay Alexander Referring Unavailable Catherine, Adonay Consulting Unavailable Jerry Lujan Attending Unavailable Bharat, Ander Primary Care Unavailable Vinnie Felder Consulting Unavailable Catherine, Adonay Referring Unavailable Adonay Alexander Admitting Unavailable Jerry Lujan Consulting Unavailable Mollison, Adonay Consulting Unavailable Bharat, Ander Primary Care Unavailable Catherine, Adonay Attending Unavailable Bharat, Ander Primary Care Unavailable Erika Boswell Attending Unavailabl e Bharat, Ander Referring Unavailable Adonay Alexander Attending Unavailable Dr. Fadia Warren DO Attending Provider Adonay Alexander MD Referring Provider [phone] Adonay Alexander MD Other Provider Dr. Vinnie Felder MD Other Provider Unavailable Adonay Alexander MD Admit Provider Dr. Jerry Lujan DO Other Provider Dr. Jerry Lujna DO Attending Provider Medications Current Medications Medication Drug Class(es) Dates Sig (Normalized) Sig (Original) cholecalciferol 0.125 mg oral capsule (3 sources) Vitamin D Start: 10-14-2024 take 1 capsule by mouth once daily Cholecalciferol (Vitamin D3) 125 mcg (5,000 unit) capsule Active 125 ug PO daily October 14, 2024 12:00am take 1 capsule by mouth once fadumo ly Cholecalciferol (vitamin D3) 125 MCG (5000 UT) capsule Take 1 capsule by mouth daily. 0 Active COLOSTRUM PO (1 source) COLOSTRUM PO Rajat e by mouth. 0 Active FOUR LIFE (1 source) Start: 10-20-2024 FOUR LIFE Active 2 {tbl} PO DAILY October 20, 2024 12:00am ipratropium bromide 0.042 mg/actuat metered dose nasal spray (20 sources) Anticholinergic Start: 07-18-2022 take 2 spray(s) nasal route twice daily Ipratropium 0.06 % Solution instill 2 sprays into each nostril twice a day 0 07/18/2022 Active Start: 07-18-2022 End: 08-05-2022 Ipratropium [place] 42 mcg ( 0.06 %) spray,non-aerosol Active 2 NMA NASAL TWICE A DAY August 05, 2022 5:20pm Start: 07-18-2022 End: 08-05-2022 Ipratropium [place] Active 2 SPRAY NASAL TWICE A DAY August 05, 2022 5:20pm lanolin 0.157 mg/mg / menthol 0.0044 mg/mg / petrolatum 0.24 mg/mg / zinc oxide 0.206 mg/mg topical ointment (4 sources) Start: 07-19-2022 Calmoseptine 0 .44-20.6 % Ointment APPLY TOPICALLY TO THE VERENA-RECTAL AREA TWICE A DAY AND AFTER BOWEL MOVEMENTS 0 07/19/2022 Active Multiple Vitamin (multivitamin) capsule (1 source) take 1 capsule by mouth once daily Multiple Vitamin (multivitamin) capsule Take 1 capsule by mouth daily. 0 Active Multivitamin (Daily Multi-Vitamin) tablet (1 source) Start: 10-20-2024 Multivitamin ( Daily Multi-Vitamin) tablet Active 1 {tbl} PO DAILY October 20, 2024 12:00am [place] 0-Imd-Xiv-Fish Oil (Fish Oil) 60-90-500 mg capsule (2 sources) Start: 10-14-2024 [place] 3-Dha-Ep a-Fish Oil (Fish Oil) 60-90-500 mg capsule Active 1 NMA PO daily October 14, 2024 12:00am omega-3 acid ethyl esters (senior living) 1000 mg oral capsule (1 source) take 2 capsules by mouth twice daily omega-3 acid ethyl esters 1 g capsule Take 2 capsules by mouth 2 times daily. 0 Active sennosides, senior living 17.2 mg oral tablet (6 sources) Start: 08-05-2022 take 1 tablet by mouth once daily as needed Sennosides 17.2 MG tablet Take 1 tablet by mouth daily as needed. 0 08/05/2022 Active Start: 08-02-2022 End: 08-05-2022 take 8.6 mg by mouth once daily 8.6 mg, Oral, DAILY, First dose on Fri08/02/22 at 0900, Until Discontinued, Post-op/Post-Proc Start: 06-07-2022 End: 08-05-2022 Senna 17.2 MG tablet 1 table t by Per G Tube route daily as needed. 0 06/07/2022 08/05/2022 Discontinued (Reorder) TRANSFACTOR (1 source) Start: 10-20-2024 TRANSFACTOR Ac tive 1 {tbl} PO DAILY October 20, 2024 12:00am Completed/Discontinued Medications Medication Drug Class(es) Dates Sig (Normalized) Sig (Original) acetaminophen 325 mg oral tablet (20 sources) Start: 08-05-2022 End: 08-23-2022 take 2 tablets by mouth every four hours as needed for pain Acetaminophen (Tylenol) 325 mg Tablet Discontinued 650 mg PO Q4H as needed for Pain August 05, 2022 12:00am August 23, 2022 10:50am Start: 08-01-2022 End: 08-05-2022 take 1 tablet by mouth every four hours as needed Acetaminophen (TYLENOL) tablet 650 mg Start: 07-18-2022 take 1 tablet by shelbi th every six hours as needed Acetaminophen (Acetaminophen Pain Relief) 500 mg tablet Active 500 mg PO EVERY 6 HOURS as needed for fever or pain July 18, 2022 1:00am 1-2 tabs PO every 6 hours as needed for pain or fever Start: 06-07-2022 End: 03-20-2023 Acetaminophen 325 MG tablet 2 tablets by PEG Tube route every 4 hours. 0 06/07/2022 08/05/2022 Discontinued (Stop Taking at Discharge) Start: 06-07-2022 End: 07-18-2022 Acetaminophen (Tylenol) 325 mg Tablet Discontinued 650 mg feeding tube EVERY 6 HOURS June 07, 2022 1:00am July 18, 2022 4:08pm acetaminophen 325 mg / HYDROcodone bitartrate 5 mg oral tablet (2 sources) Opioid Agonist Start: 10-09-2024 End: 10-14-2024 Hydrocodone-Acetaminophen 5- 325 mg tablet Discontinued 1 {tbl} PO EVERY 6 HOURS NEEDED as needed for Pain 04 20October 09, 2024 October 14, 2024 1:36pm acetaminophen 325 mg / oxyCODONE hydrochloride 5 mg oral tablet (14 sources) Opioid Agonist Start: 08-05-2022 End: 09-17-2022 Oxycodone-Acetaminophen 5-32 5 mg Tablet Discontinued 1 {tbl} PO EVERY 6 HOURS as needed for Pain August 05, 2022 12:00am August 23, 2022 10:52am Start: 08-05-2022 End: 08-23-2022 take 1 tablet by mouth every six hours Oxycodone-Acetaminophen Discontinued 1 TABLET PO EVERY 6 HOURS August 05, 2022 12:00am August 23, 2022 10:52am Start: 08-01-2022 End: 08-05-2022 take 1 tablet by mouth every six hours as needed oxyCODONE-acetaminophen (PERCOCET) 5-325 MG per tablet 1 tablet amoxicillin 500 mg oral tablet (2 sources) Penicillin-class Antibacterial Start: 02-14-2024 End: 02-24-2024 take 1 tablet by mouth twice daily Amoxicillin 500 mg tablet Discontinued 500 mg PO TWICE A DAY 07 03February 14, 2024 12:00am February 23, 2024 12:00am February 24, 2024 12:08am apixaban 5 mg oral tablet (20 sources) Factor Xa Inhibitor Start: 12-14-2022 End: 04-08-2023 take 1 tablet by mouth twice daily Apixaban (Eliquis Dvt-Pe Treat 30d Start) 5 mg (74 tabs) tablets,dose pack Discontinued 5 mg PO TWICE A DAY December 14, 2022 12:00am April 08, 2023 8:27pm use as directed Start: 08-05-2022 End: 08-05-2022 apixaban (ELIQUIS) tablet 5 mg Start: 07-18-2022 End: 10-14-2024 take 1 tablet by mouth every twelve hours Apixaban 5 mg tablet Discontinued 5 mg PO TWICE A DAY August 05, 2022 5:20pm October 14, 2024 1:34pm 1 tab every 12 hours. Start: 06-12-2022 End: 08-05-2022 apixaban 5 MG tablet Indicat ions: Venous Thromboembolism 1 tablet by Per G Tube route every 12 hours. 0 06/12/2022 08/05/2022 Discontinued (Reorder) Start: 06-07-2022 apixaban 5 MG tablet Indications: Venous Thromboembolism 2 tablets by Per G Tube route every 12 hours for 5 days. 20 tablet 0 06/07/2022 Active Start: 06-07-2022 End: 07-18-2022 Apixaban (Eliquis) 5 mg Tabl et Discontinued 10 mg feeding tube TWICE A DAY June 07, 2022 1:00am July 18, 2022 4:09pm Arthritis Pain Compound (11 sources) Start: 08-23-2022 End: 10-14-2024 Arthritis Pain Compound Disc ontinued 3 NMA TOPICAL THREE TIMES A DAY 2 August 23, 2022 12:00am October 14, 2024 1:36pm Start: 08-23-2022 Arthritis Pain Compound Active 3 CLICK topical THREE TIMES A DAY 2 August 22, 2022 11:00pm Start: 08-23-2022 Arthritis Pain Compound Active 3 CLICK topical THREE TIMES A DAY 2 August 23, 2022 12:00am atorvastatin 20 mg oral tablet (20 sources) HMG-CoA Reductase Inhibitor Start: 06-07-2022 End: 08-05-2022 atorvastatin 20 MG tablet 1 tablet by Per G Tube route at bedtime. 0 06/07/2022 08/05/2022 Discontinued (Reorder) Start: 06-07-2022 End: 10-14-2024 take 1 tablet by mouth at bedtime Atorvastatin 20 mg tablet Discontinued 20 mg PO AT BEDTIME August 05, 2022 5:20pm October 14, 2024 1:34pm carvedilol 3.125 mg oral tablet (20 sources) alpha-Adrenergic Julio, beta-Adrenergic Julio Start: 08-01-2022 End: 09-17-2022 take 1 tablet by mouth every twelve hours carveDILOL 3.125 MG tablet Take 1 tablet by mouth every 12 hours. 0 08/05/2022 09/17/2022 Discontinued Start: 06-07-2022 End: 08-05-2022 carveDILOL 3.125 MG tablet 1 tablet by Per G Tube route every 12 hours. 0 06/07/2022 08/05/2022 Discontinued (Reorder) Start: 06-07-2022 End: 08-23-2022 take 1 tablet by mouth twice daily at mealtime Carvedilol 3.125 mg tablet Discontinued 3.125 mg PO TWICE DAILY WITH MEALS August 05, 2022 5:20pm August 23, 2022 10:52am ceFAZolin 2000 mg injection (2 sources) Cephalosporin Antibacterial Start: 08-02-2022 End: 08-02-2022 ceFAZolin (ANCEF) 2 g in dextrose 100 mL premix IVPB Start: 08-01-2022 End: 08-01-2022 2 g, Intravenous, Administer over 30 Minutes, EVERY 8 HOURS, 3 doses, First dose on Carie 08/01/22 at 1700, Last dose on Fri08/02/22 at 0600, Post-op/Post-Proc dicyclomine hydrochloride 10 mg oral capsule (8 sources) Anticholinergic Start: 12-14-2022 End: 10-14-2024 take 2 capsules by mouth every six hours as needed for pain Dicyclomine 10 mg capsule Discontinued 20 mg PO EVERY 6 HOURS NEEDED as needed for abdominal pain December 14, 2022 6:05am October 14, 2024 1:36pm Start: 12-14-2022 take 20 mg by mouth every six hours as needed Dicyclomine Active 20 MG PO EVERY 6 HOURS NEEDED December 14, 2022 6:05am docusate sodium 100 mg oral capsule (1 source) Start: 08-01-2022 End: 08-05-2022 take 100 mg by mouth twice daily 100 mg, Oral, 2 TIMES DAILY, First dose on Carie 08/01/22 at 1700, Until Discontinued, Post-op/Post-Proc docusate sodium 50 mg / sennosides, senior living 8.6 mg oral tablet (11 sources) Start: 07-18-2022 End: 08-23-2022 Sennosides-Docusate Sodium (Lax Stool Softener With Senna) 8.6-50 mg tablet Discontinued 1 NMA PO TWICE A DAY 60 July 18, 2022 1:00am August 23, 2022 10:50am 0.4 ml enoxaparin sodium 100 mg/ml prefilled syringe (1 source) Low Molecular Weight Heparin Start: 08-02-2022 End: 08-05-2022 inject 40 mg by subcutaneous injection every twenty-four hours 40 mg, Subcutaneous, EVERY 24 HOURS, First dose on Fri08/02/22 at 0900, Until Discontinued Indications: DVT/PE prophylaxis, Post-op/Post-Proc 2 ml famotidine 10 mg/ml injection (1 source) Histamine-2 Receptor Antagonist Start: 08-01-2022 End: 08-01-2022 famotidine (PF) (PEPCID) injection 20 mg lisinopril 40 mg oral tablet (12 sources) Angiotensin Converting Enzyme Inhibitor Start: 06-08-2022 End: 07-30-2022 Lisinopril 40 MG tablet 1 tablet by Per G Tube route daily. 0 06/08/2022 07/30/2022 Discontinued (Therapy completed) Start: 06-07-2022 End: 07-18-2022 Lisinopril 40 mg Tablet Disc ontinued 40 mg feeding tube DAILY June 07, 2022 1:00am July 18, 2022 4:10pm magnesium oxide 400 mg oral tablet (2 sources) Start: 08-03-2022 End: 08-04-2022 magnesium oxide (MAG-OX) tab let 400 mg menthol 0.005 mg/mg / zinc oxide 0.207 mg/mg topical ointment (20 sources) Start: 08-05-2022 End: 08-23-2022 Menthol-Zinc Oxide (Calmosep viviana) 0.44-20.6 % Ointment Discontinued 1 NMA TOPICAL TWICE A DAY August 05, 2022 12:00am August 23, 2022 10:53am Start: 08-05-2022 End: 08-23-2022 Menthol-Zinc Oxide (Calmosep viviana) 0.44-20.6 % Ointment Discontinued 1 APPLIC TOPICAL TWICE A DAY August 04, 2022 11:00pm August 23, 2022 9:53am Start: 08-05-2022 End: 08-23-2022 Menthol-Zinc Oxide (Calmosep viviana) 0.44-20.6 % Ointment Discontinued 1 APPLIC TOPICAL TWICE A DAY August 05, 2022 12:00am August 23, 2022 10:53am Start: 07-18-2022 End: 10-14-2024 Menthol-Zinc Oxide (Dermasep tin) 0.5-20.65 % ointment Discontinued 0 .Route .COMPLEX August 05, 2022 5:20pm October 14, 2024 1:36pm apply topically to the verena-rectal area BID and after BM's Multivitamin Combination No. 56 tablet,chewable (2 sources) Start: 10-14-2024 End: 10-20-2024 Multivitamin Combination No. 56 tablet,chewable Discontinued {tbl} PO DAILY October 14, 2024 12:00am October 20, 2024 10:52am Start: 10-14-2024 Multivitamin C ombination No.56 tablet,chewable Active {tbl} PO DAILY October 14, 2024 12:00am Nutritional Supplements (Osmolite 1.2 thalia) Liquid (1 source) Start: 06-07-2022 End: 07-30-2022 Nutritional Supplements (Osmolite 1.2 thalia) Liquid 65 mL/hr by PEG Tube route continuous. 0 06/07/2022 07/30/2022 Discontinued (Therapy completed) ondansetron 4 mg disintegrating oral tablet (8 sources) Serotonin-3 Receptor Antagonist Start: 12-14-2022 End: 10-14-2024 take 2 tablets by mouth every eight hours as needed for nausea Ondansetron 4 mg tablet,disintegrat ing Discontinued 8 mg PO EVERY 8 HOURS NEEDED as needed for Nausea December 14, 2022 12:00am October 14, 2024 1:36pm Start: 12-14-2022 take 8 mg by mouth e very eight hours as needed Ondansetron Active 8 MG PO EVERY 8 HOURS NEEDED December 14, 2022 12:00am Ondansetron 4mg/2ml (ZOFRAN) injection 4 mg (1 source) Start: 08-01-2022 End: 08-05-2022 take 4 mg intravenously every six hours as needed Ondansetron 4mg/2ml (ZOFRAN) injection 4 mg polyethylene glycol [id number] mg powder for oral solution (1 source) Osmotic Laxative Start: 08-04-2022 End: 08-05-2022 Polyethylene glycol (MIRALAX) packet 17 g 1000 ml potassium chloride 0.02 meq/ml / sodium chloride 9 mg/ml injection (1 source) Start: 08-01-2022 End: 08-02-2022 Intravenous, at 75 mL/hr, CONTINUOUS, Starting on Carie 08/01/22 at 1600, Until 08/02/22 at 0729, Post-op/Post-Proc povidone-iodine (3M SKIN and NASAL ANTISEPTIC) 5 % topical solution 1 Application (1 source) Start: 08-01-2022 End: 08-01-2022 povidone-iodine (3M SKIN and NASAL ANTISEPTIC) 5 % topical solution 1 Application Senna-Docusate Sodium (9 sources) Start: 06-07-2022 End: 07-18-2022 take 2 tablets by mouth twice daily Senna-Docusate Sodium Discontinued 2 TABLET PO TWICE A DAY June 07, 2022 12:00am July 18, 2022 3:10pm Start: 06-07-2022 End: 07-18-2022 take 2 tablets by mouth twice daily Senna-Docusate Sodium Discontinued 2 TABLET PO TWICE A DAY June 07, 2022 1:00am July 18, 2022 4:10pm Senna-Docusate Sodium Tablet (2 sources) Start: 06-07-2022 End: 07-18-2022 Senna-Docusate Sodium Tablet Discontinued 2 {tbl} PO TWICE A DAY as needed for Constipation June 07, 2022 1:00am July 18, 2022 4:10pm 1000 ml sodium chloride 9 mg /ml injection (14 sources) Start: 08-01-2022 End: 08-05-2022 Intravenous, at 20 mL/hr, NEEDED, Starting on Carie 08/01/22 at 1527, Until 08/05/22 at 1629, Carrier Fluid - See Admin. Inst 250mL 0.9NS to be used as carrier fluid for intermittent small volume or piggyback medication administration as needed. Infusion rate of the carrier fluid should be set at 20 mL/hr unless the rate as the intermittent medication is less than 20 mL/hr. For intermittent medications with a rate less than 20 mL/hr set the carrier fluid at that rate of the intermittent or piggy back medication. Post-op/Post-Proc Start: 08-01-2022 End: 08-01-2022 Sodium chloride 0.9% IV solu tion Start: 07-18-2022 End: 07-30-2022 take 1 tablet by mouth once daily Sodium chloride 1 g tablet Take 1 tablet by mouth daily. 0 07/18/2022 07/30/2022 Discontinued Start: 07-18-2022 End: 08-23-2022 take 1 tablet by mouth once daily Sodium Chloride 1,000 mg Tablet,Soluble Discontinued 1000 mg PO DAILY July 18, 2022 1:00am August 23, 2022 10:50am Vancomycin HCl in NaCl (Vancocin) 1,250 mg 287.5 ml premade IVPB (1 source) Start: 08-01-2022 End: 08-01-2022 Vancomycin HCl in NaCl (Vancocin) 1,250 mg 287.5 ml premade IVPB water 1000 mg/ml irrigation solution (3 sources) Start: 06-07-2022 End: 08-05-2022 Water For Irrigation, Steril e (Water po liquid, free water,) Solution 120 mL by PEG Tube route 5 times daily. 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 hemorrhage, unspecified] Onset: 05-22-2022 05-30-2022 Chronic Comment on above: Due to leakage from a left MCA aneurysm Acute posthemorrhagic anemia (14 sources) Acute posthemorrhagic anemia; Translations: [Acute posthemorrhagic anemia] 07-27-2022 Episodic Aortic; peripheral; and visceral artery aneurysms (11 sources) Dissection of cerebral artery; 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, nonruptured] 08-12-2022 Chronic Comment on above: L MCA during attempt at clipping an aneurysm of the L MCA - causing an ischemic stroke Diabetes mellitus without complication (20 sources) Hyperglycemia; Translations: [Hyperglycemia, unspecified] 07-27-2022 Episodic Disorders of lipid metabolism (17 sources) Hyperlipidemia; Translations: [Hyperlipidemia, unspecified] Onset: 05-22-2022 06-07-2022 Chronic Disorders of teeth and jaw (4 sources) Dental caries; Translations: [Dental caries, unspecified] Onset: 02-14-2024 02-14-2024 Episodic Essential hypertension (20 sources) Hypertensive disorder; Translations: [Essential (primary) hypertension] Onset: 05-30-2022 06-03-2022 Chronic Comment on above: NO MEDS FOR 1 YR Fluid and electrolyte disorders (18 sources) Disorder of electrolytes; Translations: [Other disorders of electrolyte and fluid balance, not elsewhere classified] Onset: 05-24-2022 05-24-2022 Episodic Fracture of lower limb (8 sources) Fracture of patella; Translations: [Unspecified fracture of unspecified patella, initial encounter for closed fracture] Onset: 10-27-2024 10-09-2024 Episodic Genitourinary symptoms and ill-defined conditions (20 sources) Incontinence without sensory awareness; Translations: [Incontinence without sensory awareness] Onset: 08-05-2022 Chronic Comment on above: WEARS DEPENDS Immunizations and screening for infectious disease (2 sources) Requires diphtheria, tetanus and pertussis vaccination; Translations: [Encounter for immunization] 10-09-2024 Episodic Inflammation; infection of eye (except that caused by tuberculosis or sexually transmitteddisease) (14 sources) Conjunctivitis; Translations: [Unspecified conjunctivitis] 07-27-2022 Episodic Late effects of cerebrovascular disease (20 sources) Hemiparesis as late effect of cerebrovascular accident; Translations: [Hemiplegia and hemiparesis following cerebral infarction affecting right dominant side] Onset: 05-22-2022 Resolved: 09-17-2022 05-30-2022 Chronic Malaise and fatigue (20 sources) Asthenia; Translations: [Weakness] 08-12-2022 Episodic Nausea and vomiting (8 sources) Vomiting; Translations: [Vomiting, unspecified] 12-14-2022 Episodic Neoplasms of unspecified nature or uncertain behavior (14 sources) Thrombocytosis; Translations: [Thrombocythemia] 07-27-2022 Episodic Other acquired deformities (19 sources) Acquired defect of skull; Translations: [Other acquired deformity of head] Onset: 05-22-2022 Episodic Other aftercare (16 sources) Long-term current use of anticoagulant; Translations: [nursing home (current) use of anticoagulants] Onset: 06-05-2022 Resolved: 09-17-2022 06-05-2022 Episodic Comment on above: For DVT right brachi al vein Other aftercare (7 sources) pharmacist intern (current) use of anticoagulants; Translations: [Long-term (current) use of anticoagulants] 07-19-2022 Episodic Other and ill-defined cerebrovascular disease (5 sources) Aneurysm of middle cerebral artery; Translations: [Cerebral aneurysm, nonruptured] Onset: 05-22-2022 06-06-2022 Chronic Other and ill-defined cerebrovascular disease (11 sources) Intracranial aneurysm; Translations: [Cerebral aneurysm, nonruptured] 08-12-2022 Chronic Other gastrointestinal disorders (11 sources) PEG externally removable; Translations: [Gastrostomy status] 08-12-2022 Chronic Other gastrointestinal disorders (3 sources) Gastrostomy status; Translations: [Gastrostomy status] 07-19-2022 Chronic Other gastrointestinal disorders (11 sources) Dysphagia; Translations: [Dysphagia, unspecified] 07-27-2022 Episodic Other gastrointestinal disorders (11 sources) Incontinence of feces; Translations: [Full incontinence of feces] 08-12-2022 Episodic Comment on above: WEARS DEPENDS Other gastrointestinal disorders (7 sources) Full incontinence of feces; Translations: [Full incontinence of feces] 07-19-2022 Episodic Other gastrointestinal disorders (3 sources) Dysphagia, unspecified; Translations: [Dysphagia, unspecified] 07-19-2022 Episodic Other injuries and conditions due to external causes (5 sources) Closed injury of head; Translations: [Unspecified injury of head, initial encounter] 04-08-2023 Episodic Other injuries and conditions due to external causes (2 sources) Abrasion and/or friction burn of multiple sites; Translations: [Unspecified multiple injuries, initial encounter] 10-09-2024 Episodic Other injuries and conditions due to external causes (1 source) Personal history of (healed) traumatic fracture; Translations: [Personal history of (healed) traumatic fracture] Onset: 10-27-2024 Episodic Other nervous system disorders (12 sources) Cerebral edema; Translations: [Cerebral edema] Onset: 05-22-2022 07-27-2022 Chronic Other nervous system disorders (4 sources) Cerebral edema; Translations: [Cerebral edema] Onset: 05-22-2022 07-19-2022 Chronic Other nervous system disorders (11 sources) Kaylene-neglect; 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] 06-08-2022 Episodic Comment on above: R side Other nervous system disorders (7 sources) Neurologic neglect syndrome; 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] 07-19-2022 Episodic Other nervous system disorders (2 sources) Impaired cognition 06-08-2022 Episodic Other non-traumatic joint disorders (1 source) Pain in right ankle and joints of right foot; Translations: [Pain in right ankle and joints of right foot] Onset: 10-26-2024 Episodic Other nutritional; endocrine; and metabolic disorders (16 sources) Body mass index 30+ - obesity; Translations: [Obesity, unspecified] Onset: 05-30-2022 05-30-2022 Chronic Other nutritional; endocrine; and metabolic disorders (11 sources) Obese class I; Translations: [Obesity, unspecified] 08-23-2022 Chronic Other nutritional; endocrine; and metabolic disorders (4 sources) Obesity, unspecified; Translations: [Obesity, unspecified] 08-24-2022 Chronic Other screening for suspected conditions (not mental disorders or infectious disease) (16 sources) Liver function tests abnormal; Translations: [Other specified abnormal findings of blood chemistry] Onset: 05-22-2022 08-23-2022 Episodic Phlebitis; thrombophlebitis and thromboembolism (18 sources) Acute deep venous thrombosis of upper extremity; Translations: [Acute embolism and thrombosis of deep veins of right upper extremity] Onset: 06-05-2022 06-05-2022 Episodic Comment on above: Brachial vein right upper extremity Pulmonary heart disease (8 sources) Pulmonary embolism; Translations: [Other pulmonary embolism without acute cor pulmonale] 12-14-2022 Episodic Residual codes; unclassified (11 sources) History of cardiovascular surgery; Translations: [Other specified postprocedural states] 07-27-2022 Episodic Comment on above: Left middle cerebral artery-failed. R MCA dissected during the procedure. Residual codes; unclassified (20 sources) History of craniotomy; Translations: [Other specified postprocedural states] 08-12-2022 Episodic Comment on above: May 2022 08/01/2022 to replace the bone flap removed at the time of the first craniectomy in May 2022. Residual codes; unclassified (1 source) Other specified postprocedural states; Translations: [Other specified postprocedural states] Onset: 10-27-2024 Episodic Spondylosis; intervertebral disc disorders; other back problems (20 sources) Torticollis; Translations: [Torticollis] 08-12-2022 Episodic Unclassified (16 sources) Impaired cognition; Translations: [Cognitive dysfunction due to cerebrovascular accident (CVA)] 06-08-2022 Past or Other Problems Problem Classification Problem Date Documented Da te Episodic/Chronic Deficiency and other anemia (4 sources) Anemia; Translations: [Anemia, unspecified] Onset: 05-24-2022 05-24-2022 Episodic Other acquired deformities (4 sources) Other acquired deformity of head; Translations: [Other specified acquired deformity of head] Onset: 08-01-2022 07-19-2022 Episodic Other gastrointestinal disorders (3 sources) Complete fecal incontinence; Translations: [Full incontinence of feces] Onset: 08-05-2022 Resolved: 09-17-2022 Episodic Unclassified (1 source) Other acquired deformity of head; Translations: [Other acquired deformity of head] Onset: 08-01-2022 Unclassified (1 source) Nontraumatic intracranial hemorrhage, unspecified; Translations: [Nontraumatic intracranial hemorrhage, unspecified] Onset: 05-22-2022 Unclassified (1 source) Other abnormal findings on diagnostic imaging of central nervous system; Translations: [Other abnormal findings on diagnostic imaging of central nervous system] Onset: 05-22-2022 Results Test Name Value Interpretation Reference Range Facility Anion gap in Serum or Plasma Ordered By: Jerry Lujan on 10-28-2024 Anion gap [Moles/Vol] 11 mmol/L 5-15 [facility] BUN/creatinine ratioOrdered By: Jerry Lujan on 10-28-2024 Urea nitrogen/Creatinine [Mass ratio] 15.1 mg/mg 10-20 [facility] CBC-Complete Blood Cnt No Xochilt renee 10-28-2024 Erythrocyte distribution width (RBC) [Ratio] 13.1 % Normal 11.6-14.6 [facility] Comment on above: Performed By: #### L 100.0500 #### [facility] [address] [place], [address] Hematocrit (Bld) [Volume fraction] 44.2 % Normal 40-54 [facility] Comment on above: Performed By: #### L 100.0500 #### [facility] [address] [place], [address] Hemoglobin (Bld) [Mass/Vol] 15.1 g/dL Normal 13.0-16.5 [facility] Comment on above: Performed By: #### L 100.0500 #### [facility] [address] [place], [address] MCH (RBC) [Entitic mass] 29.0 pg Normal 27.0-32.0 [facility] Comment on above: Performed By: #### L 100.0500 #### [facility] [address] [place], [address] MCHC (RBC) [Mass/Vol] 34.2 g/dL Normal 32-36 [facility] Comment on above: Performed By: #### L 100.0500 #### [facility] [address] [place], [address] MCV (RBC) [Entitic vol] 84.8 fL Normal 80-94 [facility] Comment on above: Performed By: #### L 100.0500 #### [facility] [address] [place], [address] Platelet mean volume (Bld) [Entitic vol] 8.9 fL Normal 6.2-12.0 [facility] Comment on above: Performed By: #### L 100.0500 #### [facility] [address], [address] Platelets (Bld) [#/Vol] 290 10*3/uL Normal 150-450 [facility] Comment on above: Performed By: #### L 100.0500 #### [facility] [address] [place], [address] RBC (Bld) [#/Vol] 5.21 10*6/uL Normal 4.6-6.2 [facility] Comment on above: Performed By: #### L 100.0500 #### [facility] [address] [place], [address] RDW SD 40.2 fl Normal 35.1-43.9 [facility] Comment on above: Performed By: #### L 100.0500 #### [facility] [address] [place], [address] WBC (Bld) [#/Vol] 12.2 10*3/uL High 4.4-11.0 [facility] Comment on above: Performed By: #### L 100.0500 #### [facility] [address] [place], [address] Carbon dioxide, total [Moles /volume] in Central venous bloodOrdered By: Jerry Lujan on 10-28-2024 CO2 [Moles/Vol] 23.2 mmol/L 21.0-32.0 [facility] Chloride assayOrdered By: Chente Lujan on 10-28-2024 Chloride [Moles/Vol] 104 mmol/L 98-108 [facility] Erythrocyte distribution wid th ratioOrdered By: Jerry Lujan on 10-28-2024 Erythrocyte distribution width (RBC) [Ratio] 13.1 % 11.6-14.6 [facility] Erythrocyte distribution wid th standard deviationOrdered By: Jerry Lujan on 10-28-2024 Erythrocyte distribution width (RBC) [Ratio] 40.2 fl 35.1-43.9 [facility] Glomerular filtration rate ( GFR) estimation/1.73 sq m using serum, plasma, or whole bOrdered By: Jerry Lujan on 10-28-2024 GFR/1.73 sq M.predicted among non-blacks MDRD (S/P/Bld) [Vol rate/Area] 115 mL/min/{1.73_m2} >60 [facility] Comment on above: mL/min/1.73m2 CKD-EP I Creatinine Equation (2020) Hematocrit Auto (Bld) [Volum e fraction]Ordered By: Jerry Lujan on 10-28-2024 Hematocrit (Bld) [Volume fraction] 44.2 % 40-54 [facility] Hemoglobin measurementOrdere d By: Jerry Lujan on 10-28-2024 Hemoglobin (Bld) [Mass/Vol] 15.1 g/dL 13.0-16.5 [facility] MCV (mean corpuscular volume ) determinationOrdered By: Jerry Lujan on 10-28-2024 MCV (RBC) [Entitic vol] 84.8 fL 80-94 [facility] Mean corpuscular hemoglobin (MCH) determinationOrdered By: Jerry Lujan on 10-28-2024 MCH (RBC) [Entitic mass] 29.0 pg 27.0-32.0 [facility] Mean corpuscular hemoglobin concentration (MCHC) determinationOrdered By: Jerry Lujan on 10-28-2024 MCHC (RBC) [Mass/Vol] 34.2 g/dL 32-36 [facility] Mean platelet volume determi nationOrdered By: Jerry Lujan on 10-28-2024 Platelet mean volume (Bld) [Entitic vol] 8.9 fL 6.2-12.0 [facility] Platelet countOrdered By: Chente Lujan on 10-28-2024 Platelets (Bld) [#/Vol] 290 10*3/uL 150-450 [facility] Potassium measurement (mass/ volume)Ordered By: Jerry Lujan on 10-28-2024 Potassium (Unsp spec) [Mass/Vol] 4.3 mmol/L 3.3-5.1 [facility] RBC Auto (Bld) [#/Vol]Ordere d By: Jerry Lujan on 10-28-2024 RBC (Bld) [#/Vol] 5.21 10*6/uL 4.6-6.2 [facility] Serum creatinine measurement (mass/volume)Ordered By: Jerry Lujan on 10-28-2024 Creatinine [Mass/Vol] 0.79 mg/dL 0.70-1.20 [facility] Serum glucose measurement (m ass/volume)Ordered By: Jerry Lujan on 10-28-2024 Glucose [Mass/Vol] 111 mg/dL High 70-99 [facility] Serum or plasma calcium crystal urement (mass/volume)Ordered By: Jerry Lujan on 10-28-2024 Calcium [Mass/Vol] 9.2 mg/dL 7.6-11.0 [facility] Serum or plasma urea nitroge n measurement (mass/volume)Ordered By: Jerry Lujan on 10-28-2024 Urea nitrogen [Mass/Vol] 12 mg/dL 4-19 [facility] Sodium levelOrdered By: Titi Lujan on 10-28-2024 Sodium [Moles/Vol] 138 mmol/L 133-145 [facility] White blood cell (WBC) count Ordered By: Jerry Lujan on 10-28-2024 WBC (Bld) [#/Vol] 12.2 10*3/uL High 4.4-11.0 [facility] Consultation - [place] 10-27-2024 Consultation - Hospitalist [facility] Medical Records Department [address] [place] [address] Consultation - Hospitalist 10/27/24 1242 MR#: [id number] Acct: [id number] Name: ROMEO GONZALES Marilee Rep #: [id number] : 1985 38 From: Jerry Lujan DO PCP: Dr. Ander Nicholson, DO Status:ADM REINA [facility] Plan Assessment/Plan (1) Status post open reduction and internal fixation (ORIF) of fracture of right patella: PLAN: Plan Patient is a 38-year-old male who presented [facility] on 10/27/2024 for planned patellar fracture repair. Medicine consulted postoperatively for medical management. 1. Right patellar fracture ??? Orthopedic surgery primary. Recent mechanical fall with right patella fracture. S/p right patella ORIF with Dr. Alexander on 10/27. Tolerated procedure well, no intraoperative complications. Pain control, DVT prophylaxis and other postoperative management per orthopedics. PT/OT/case management following. 2. 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 Per history. Currently stable at baseline. Complicates hospital course, care and prognosis. 3. Class II obesity ??? BMI 36. Complicates hospital course, care and prognosis. DVT prophylaxis: Defer to orthopedics Total clinical time spent by myself addressing the patient's medical issues, reviewing all the data, and collaborating with patient's care team: 35 minutes. HPI Consult Data Date of Consult: 10/27/24 HPI Narrative Reason for Consultation: Postoperative medical management HPI Narrative: ROMEO GONZALES, is a 38 M who presented to [facility] on 10/27/2024 for planned patellar fracture repair. Medicine consulted postoperatively for medical management. S/p right patella ORIF with Dr. Alexander today. Patient tolerated well, no intraoperative complications noted. Saw patient at bedside this afternoon, mother and father present. Patient was sitting up comfortably in bedside chair, conversing normally and in no acute distress. Reported very mild knee pain currently and otherwise reported generalized weakness but no other pain or discomfort. Had just eaten a good late lunch when I saw him and tolerated this without issue. No other acute concerns at this time. [facility] Medical History Wears glasses Anxiety Abrasion High cholesterol Pulmonary embolism Migraine headache Non-smoker History of pain when walking History of edema Ambulates with cane Patella fracture Aphasia as late effect of stroke Hemiparesis affecting right side as late effect of cerebrovascular accident Generalized weakness Hyperlipidemia Ischemic cerebrovascular accident (CVA) Fecal incontinence Urinary incontinence Debility Current use of retirement anticoagulation DVT (deep venous thrombosis) Subarachnoid hemorrhage Dissection of cerebral artery Obesity (BMI 30-39.9) Arterial ischemic stroke, MCA (middle cerebral artery), left, acute Stroke/cerebrovascular accident Hypertension Home Medications ???Medication ???Instructions ???Recorded ???Last Taken ???Type acetaminophen 500 mg tablet 500 mg PO Q6H PRN fever or pain 10/26/24 18:00 Rx (Acetaminophen Pain Relief) #90 tabs ipratropium bromide 42 mcg (0.06 2 spray NASAL BID airway 08/05/22 10/27/24 History %) nasal spray cholecalciferol (vitamin D3) 125 125 mcg PO QDAY 10/14/24 10/26/24 History mcg (5,000 unit) capsule omega 4-upj-qfh-fish oil 60 mg-90 1 cap PO QDAY 10/14/24 10/26/24 H istory mg-500 mg capsule (Fish Oil) FOUR LIFE 2 tab PO DAILY 10/20/24 10/26/24 H istory TRANSFACTOR 1 tab PO DAILY 10/20/24 10/26/24 H istory multivitamin (Daily Multi-Vitamin 1 tab PO DAILY 10/20/24 10/26/24 History tablet) Allergy/AdvReac Type Severity Reaction Status Date / Time No Known Allergies Allergy Verified 10/27/24 09:33 Surgical History History of cholecystectomy History of appendectomy Status post craniectomy Status post aneurysm repair Status post craniotomy Social History adopted: No household members: family housing: house number of children: 0 current occupational status: disabled Smoking Status: Never smoker alcohol intake: never substance use type: does not use ROS Constitutional Constitutional: Denies chills, fatigue, fever(s) or weakness Eyes Eyes: Denies change in vision Cardiovascular Cardiovascular: Denies chest pain Respiratory/Chest Respiratory/Chest: Denies shortness of breath at rest Gastrointestinal Gastrointestinal: Denies abdominal pain Musculoskeletal Musculoskeletal: Denies arthralgias or myal (more content not included)... Normal [facility] Electrocardiogram reportOrde red By: Roney Howell on 10-27-2024 EKG study [facility] Services [address] [place] [address] 12 Lead EKG 10/26/24 0858 MR#: [id number] Acct: [id number] Name: ROMEO GONZALES Rep #:[id number] : 1985 38 From: Roney porter MD Attending Dr: Dr. Adonay Alexander MD [facility] Ordering Dr: Vinnie Felder MD Date: Location: Sex: M C Admitted: Test Reason : PREOP Blood Pressure : */* mmHG Vent. Rate : 82 BPM Atrial Rate : 82 BPM P-R Int : 178 ms QRS Dur : 94 ms QT Int : 360 ms P-R-T Axes : 23 60 2 degrees QTcB Int : 420 ms Normal sinus rhythm Normal ECG Confirmed by Roney Howell ([id number]), videotape editor CORRINE QUIGLEY ([id number]) on 10/27/2024 10:13:54 AM Referred By: Adonay Alexander Confirmed By: Roney Howell 10/27/24 1013 Date _ Roney Howell MD CC: Dr. Vinnie Felder MD; Dr. Ander Nicholson DO; Dr. Adonay Alexander MD ~ [facility] Other Phone: MR/POSTOP.[facility] 10-27-2024 MR/POSTOP.[facility] Medical Records Department [address] [place] [address] Anesthesia Postop Eval I 10/27/24 1230 MR#: [id number] Acct: [id number] Name: ROMEO GONZALES Rep #: [id number] : 1985 38 From: Jason Eduardo CRNA PCP: Dr. Ander Nicholson DO Status:REG SDC Y Race: C Location: [facility]07-17 Anesthesia: Postop Eval I Current Vital Signs Temperature: 97.8 F Pulse Rate: 82 Blood Pressure: 129/90 Respiratory Rate: 16 Pulse Ox: 96 Assessment Airway patent: Yes Spontaneous unlabored respirations: Yes nausea: No Vomiting: No Anesthesia Complication: No Fluid Hydration Crystalloid volume administer (ml): 1,100 Total IV fluid infused: 1,100 Progress Note Anesthesia document: Postop Eval 1 completed: Yes 10/27/24 1230 Date Jason Eduardo BEAD FORMING MACHINE OPERATOR Cosigner Signature: Date CC: Signed Normal [facility] MR/[id number] 10-27-2024 MR/POSTOPAN2 [facility] Medical Records Department [address] [place] [address] Anesthesia Postop Eval II 10/27/24 1355 MR#: [id number] Acct: [id number] Name: ROMEO GONZALES Rep #: [id number] : 1985 38 From: Ridge Kirby MD PCP: Dr. Ander Nicholson, DO Status:ADM REINA Y Race: C Location: [place] [id number] Anesthesia Postop Eval I Sum Postop Eval Completion status Anesthesia document: Postop Eval 1 completed: Yes Anesthesia Postop Eval I Summary Anesthesia Postop Eval I Summary: Anesthesia Postop Eval I: Assessment Summary Airway patent Yes 10/27/24 12:30 BEAD FORMING MACHINE OPERATOR.TNES Spontaneous unlabored Yes 10/27/24 12:30 BEAD FORMING MACHINE OPERATOR.TNES respirations Mental status nausea No 10/27/24 12:30 BEAD FORMING MACHINE OPERATOR.TNES Vomiting No 10/27/24 12:30 BEAD FORMING MACHINE OPERATOR.TNES Anesthesia Postop Eval I: Fluid Summary Crystalloid volume administer 1,100 10/27/24 12:30 BEAD FORMING MACHINE OPERATOR.TNES (ml) Colloids volume administered ( ml) Blood Product volume administered (ml) Total IV fluid infused 1,100 10/27/24 12:30 BEAD FORMING MACHINE OPERATOR.TNES Anesthesia Postop Eval I: Summary Notes Anesthesia Complication No 10/27/24 12:30 BEAD FORMING MACHINE OPERATOR.TNES Anesthesia Complication Comment: Post-operative progress note Anesthesia: Postop Eval II Evaluation Mental status: Awake Pain Level: 2 nausea: No Vomiting: No 10/27/24 135 Date Ridge Kirby MD Cosigner Signature: Date CC: Signed Normal [facility] Operative Reporton 5 Operative Report [facility] Medical Records Department [address] [place] [address] Operative Report 10/27/24 1223 MR#: [id number] Acct: [id number] Name: ROMEO GONZALES Rep #: [id number] : 1985 38 From: Adonay Alexander MD PCP: Dr. Ander Nicholson, DO Status:[facility] Location: [place] [address] Problems Associated Problem List Diagnoses (1) Patella fracture: Procedures Musculoskeletal 20xxx-29xxx: Other Procedure See Report Operative Report (Standard) Operative Information Date of Procedure: 10/27/24 Pre-Operative Diagnosis: Right patella fracture Post-Operative Diagnosis: Same Surgery/Procedure Performed: Right patella open reduction internal fixation, knee arthroscopy diagnostic custodial supervisor: Yes Wire Rope Sales Representative: yajaira Tasks completed by assistant credit manager: Retracting Additional legal support assistant?: No Type of Anesthesia: Block,Regional and General RN Documented Start/Stop Times: Operation Date: 10/27/24 11:00 Case Time Into Pre-Op 10/27/24 09:32 Anesthesia Start 10/27/24 10:45 Into Room 10/27/24 10:45 Procedure Start 10/27/24 11:05 Procedure End 10/27/24 12:17 Procedure Start Time: 11:05 Procedure Stop Time: 12:17 Select all DRAINS/GRAFTS/IMPLANTS that apply: Implanted device Implanted device details: Arthrex 46 mm long patella screws 4.0 mm with suture cerclage tape x 2 Estimated Blood Loss: 50 Specimen collected: No Description of surgery: Patient brought to the operating room theater. Placed supine on table. General anesthesia induced. 2 g IV Ancef administered prior to the start of the case. Bump under the right hip. Tourniquet applied the right thigh appropriately padded. All bony prominences padded. SCD on the nonoperative leg. Lower extremity prepped and draped in the usual sterile fashion with chlorhexidine-based prep solution allowing over 3 minutes drying time prior to draping. Preoperative timeout performed to confirm the site patient and the surgery. Began by limiting limb inflated the tourniquet to 250 mmHg. Made a standard anterior midline incision. The dissection down through skin and subcutaneous tissue to meticulous hemostasis. Dissected down to the level of the patella fracture. Removed any interposed hematoma and fracture periosteal tissue. Thoroughly irrigated the joint. Extended the knee used 2 fracture reduction clamps with the knee in full extension. Took AP lateral and oblique x-rays to ensure appropriate reduction of the articular surface of the patella. The next passed 2 wires from the Arthrex set from inferior to superior pole co-linear through the mid aspect of the patella. Used the Arthrex Itzel scope intra-articularly did a thorough washout irrigation exam of the fracture site this appeared to have no steps or gaps. Next I overdrilled the wires and then passed 2 46 mm long 4.0 mm diameter screws from inferior to superior ensure that they were not overly long and that they achieve good compression of the fracture site. Next use the Arthrex cerclage suture tape 1 through each screw with the suture stack knot at the proximal end of the quads tendon. Appropriately tensioned the sutures using the intraoperative tensioner to 2 landon lines. Final radiographs were taken AP and lateral. Fracture appropriately reduced with good hardware placement. Tourniquet let down meticulous hemostasis achieved. The retinaculum closed with 2-0 Vicryl sutures as well as the split in the quadriceps tendon and the patellar tendon areas were closed. Subcutaneous tissue closed with 2-0 Vicryl suture and skin with 3-0 Monocryl. Skin cleaned with wet dry dressing followed application of Steri-Strips Adaptic 4 x 4 gauze ABD dressing and Jett wrap with a hinged knee brace locked in full extension. Patient woken up from the general anesthetic transferred off the operating table taken to postanesthetic care unit in stable condition. All sponge and measured counts were correct no complications found the patient likely to be admitted for inpatient rehabilitation due to difficulties with care in the chronic hemiplegic weakness. PLAN WBAT in full extension with brace locked. CPT 59893, 66630 Surgical Findings: As above Complications Complications: No Admit VTE Documentation VTE Present on Admission: Yes VTE Mechan Device Prophylaxis: SCD's VTE Pharm Prophylaxis ordered?: No Reason prophylaxis not ordered: Treatment Not Indicated 10/27/24 1230 Cosigner Signature (if applicable): CC: Dr. Vinnie Felder MD; Dr. Ander Nicholson DO; Dr. Adonay Alexander MD Signed Normal [facility] 12 Lead EKGon 10-26-2024 12 Lead EKG [facility] [address] [place] [address] 12 Lead EKG 10/26/24 0858 MR#: [id number] Acct: [id number] Name: ROMEO GONZALES Rep #: [id number] : 1985 38 From: Roney Howell MD Attending Dr: Dr. Adonay Alexander MD Status: [facility] Ordering Dr: Vinnie Felder MD Date: 10/26/24 Location: Sex: M C Admitted: Test Reason : PREOP Blood Pressure : */* mmHG Vent. Rate : 82 BPM Atrial Rate : 82 BPM P-R Int : 178 ms QRS Dur : 94 ms QT Int : 360 ms P-R-T Axes : 23 60 2 degrees QTcB Int : 420 ms Normal sinus rhythm Normal ECG Confirmed by Roney Howell ([id number]), videotape editor CORRINE QUIGLEY ([id number]) on 10/27/2024 10:13:54 AM Referred By: Adonay Alexander Confirmed By: Roney Howell 10/27/24 1013 Date Roney Howell MD CC: Dr. Vinnie Felder MD; Dr. Ander Nicholson DO; Dr. Adonay Alexander MD Signed Normal [facility] Basic Metabolic Profile (BMP )on 10-26-2024 BUN/CRE 17.1 RATIO Normal 10-20 [facility] Comment on above: Performed By: #### L 100.0500, L500.2500 #### [facility] [address] [place], [address] Calcium [Mass/Vol] 9.6 mg/dL Normal 7.6-11.0 [facility] Comment on above: Performed By: #### L 100.0500, L500.2500 #### [facility] [address] [place], [address] Chloride [Moles/Vol] 104 mmol/L Normal 98-108 [facility] Comment on above: Performed By: #### L 100.0500, L500.2500 #### [facility] [address] [place], [address] CO2 [Moles/Vol] 26.6 mmol/L Normal 21.0-32.0 [facility] Comment on above: Performed By: #### L 100.0500, L500.2500 #### [facility] [address] [place], [address] Creatinine [Mass/Vol] 0.93 mg/dL Normal 0.70-1.20 [facility] Comment on above: Performed By: #### L 100.0500, L500.2500 #### [facility] [address] [place], [address] GAP 11 Normal 5-15 [facility] Comment on above: Performed By: #### L 100.0500, L500.2500 #### [facility] [address] [place], [address] GFR/1.73 sq M.predicted among non-blacks MDRD (S/P/Bld) [Vol rate/Area] 107 mL/min/{1.73_m2} Normal >60 [facility] Comment on above: Result Comment: mL/m in/1.73m2 CKD-EPI Creatinine Equation (2020) Performed By: #### L 100.0500, L500.2500 #### [facility] [address] [place], [address] Glucose [Mass/Vol] 82 mg/dL Normal 70-99 [facility] Comment on above: Performed By: #### L 100.0500, L500.2500 #### [facility] [address] [place], [address] Potassium [Moles/Vol] 4.0 mmol/L Normal 3.3-5.1 [facility] Comment on above: Performed By: #### L 100.0500, L500.2500 #### [facility] [address] [place], [address] Sodium [Moles/Vol] 141 mmol/L Normal 133-145 [facility] Comment on above: Performed By: #### L 100.0500, L500.2500 #### [facility] [facility] [address] [place], [address] Urea nitrogen [Mass/Vol] 16 mg/dL Normal 4-19 [facility] Comment on above: Performed By: #### L 100.0500, L500.2500 #### [facility] [address] [place], [address] CBC-Complete Blood Cnt No Di ffon 10-26-2024 Erythrocyte distribution width (RBC) [Ratio] 13.1 % Normal 11.6-14.6 [facility] Comment on above: Performed By: #### L 100.0500, L500.2500 #### [facility] [address] [place], [address] Hematocrit (Bld) [Volume fraction] 47.6 % Normal 40-54 [facility] Comment on above: Performed By: #### L 100.0500, L500.2500 #### [facility] [address] [place], [address] Hemoglobin (Bld) [Mass/Vol] 16.2 g/dL Normal 13.0-16.5 [facility] Comment on above: Performed By: #### L 100.0500, L500.2500 #### [facility] [address] [place], [address] MCH (RBC) [Entitic mass] 29.3 pg Normal 27.0-32.0 [facility] Comment on above: Performed By: #### L 100.0500, L500.2500 #### [facility] [address] [place], [address] MCHC (RBC) [Mass/Vol] 34.0 g/dL Normal 32-36 [facility] Comment on above: Performed By: #### L 100.0500, L500.2500 #### [facility] [address] [place], [address] MCV (RBC) [Entitic vol] 86.1 fL Normal 80-94 [facility] Comment on above: Performed By: #### L 100.0500, L500.2500 #### [facility] [address] [place], [address] Platelet mean volume (Bld) [Entitic vol] 8.7 fL Normal 6.2-12.0 [facility] Comment on above: Performed By: #### L 100.0500, L500.2500 #### [facility] [address] [place], [address] Platelets (Bld) [#/Vol] 271 10*3/uL Normal 150-450 [facility] Comment on above: Performed By: #### L 100.0500, L500.2500 #### [facility] [address] [place], [address] RBC (Bld) [#/Vol] 5.53 10*6/uL Normal 4.6-6.2 [facility] Comment on above: Performed By: #### L 100.0500, L500.2500 #### [facility] [address] [place], [address] RDW SD 40.6 fl Normal 35.1-43.9 [facility] Comment on above: Performed By: #### L 100.0500, L500.2500 #### [facility] [address] [place], [address] WBC (Bld) [#/Vol] 8.6 10*3/uL Normal 4.4-11.0 [facility] Comment on above: Performed By: #### L 100.0500, L500.2500 #### [facility] [address] [place], [address] Orthopedic Visit Reporton Orthopedic Visit Report [facility] [facility] [address] [place] [address] OFFICE VISIT Date of Service: 10/14/24 MR#: [id number] Acct: [id number] Name: ROMEO GONZALES Rep #: [id number] : 1985 Provider: Dr. Adonay terry MD Age/Sex: 38/M Location: [facility] [place] Status: Signed Intake Vital Signs 10/09/24 16:13 Height 5 ft 6 in BP 138/104 H Respiration 15 Pulse 89 Temp 97.5 F L Temp Source Temporal Pulse Oximetry (%) 96 Intake Visit Reasons: RIGHT KNEE Chief Complaint: Right Knee ER Follow-Up Is patient in pain?: Yes Pain scale (1-10): 6 Allergies No Known Allergies Allergy (Verified 10/14/24 13:33) Medications ???Medication ???Instructions ???Recorded ???Confirmed ???Type acetaminophen 500 mg tablet 500 mg PO Q6H PRN fever or pain 10/14/24 Rx (Acetaminophen Pain Relief) #90 tabs ipratropium bromide 42 mcg (0.06 2 spray NASAL BID airway 08/05/22 10/14/24 History %) nasal spray cholecalciferol (vitamin D3) 125 125 mcg PO QDAY 10/14/24 10/14/24 History mcg (5,000 unit) capsule multivitamin combination no.56 tab PO DAILY 10/14/24 10/14/24 His tory omega 5-emj-kdo-fish oil 60 mg-90 1 cap PO QDAY 10/14/24 10/14/24 H istory mg-500 mg capsule (Fish Oil) PFSH Medical History Patella fracture Aphasia as late effect of stroke Hemiparesis affecting right side as late effect of cerebrovascular accident Generalized weakness Hyperlipidemia Ischemic cerebrovascular accident (CVA) Fecal incontinence Urinary incontinence Debility Current use of retirement anticoagulation DVT (deep venous thrombosis) Subarachnoid hemorrhage Dissection of cerebral artery Obesity (BMI 30-39.9) Arterial ischemic stroke, MCA (middle cerebral artery), left, acute Stroke/cerebrovascular accident Hypertension Surgical History History of cholecystectomy History of appendectomy Status post craniectomy Status post aneurysm repair Status post craniotomy Social History adopted: No household members: family housing: house number of children: 0 current occupational status: disabled Smoking Status: Never smoker alcohol intake: never substance use type: does not use HPI RIGHT KNEE Details: This documentation accurately reflects the service provided and the decisions made by me, Dr. Adonay Alexander MD 10/14/24921. Part of today???s visit was documented by [ ], acting as scribe. ROMEO GONZALES is a 38 year old M here today for right patella fracture. Patient fell. He has right- sided weakness. He normally walks with a cane here with his dad who is his power of claims attorney. He normally uses a ankle brace. Patient continues to have the ankle pain as well as signficant knee pain. per ED 38-year-old male with history of cerebral aneurysm status post rupture with secondary stroke with right sided deficits presenting from home after what sounds like mechanical fall. Patient was doing his daily exercises of walking up and down the driveway. Family found him kneeling on the driveway trying to get up. It seems like he slipped and fell. Patient does not remember exactly why he fell but states he just fell really fast. He denies hitting his head. He did not scratch his glasses or break them. He initially was complaining mostly of pain in his right ankle but since then he has had pain in his right knee as well. Addition he has some pain to his right hand and abrasion/milder pain to his left knee. Supplemental Info [facility] [address] [place], [place] [id number] Knee 1 or 2 Views MR#: [id number] Acct: [id number] Name: ROMEO GONZALES Rep #: [id number] : 1985 M 38 From: Sarika Boucher MD PCP: Dr. Ander Nicholson DO Status: REG ER Study: Knee 1 or 2 Views Date of Exam: 10/09/24 Exam# [id number] Ordering Dr: Fadia Warren DO PROCEDURE: KNEE 1 OR 2 VIEWS 10/09/2024 REASON FOR EXAM: INJURY/PAIN TECHNIQUE: 2 view(s) of the right knee COMPARISON: None. FINDINGS: Bones: Acute horizontal fracture of the patella with mild distraction of the fracture fragments. No suspicious osseous lesion. Joints: Normal alignment. Mild degenerative changes. Effusion: Moderate joint effusion. Soft tissues: Mild soft tissue swelling. RAD/Knee 1 or 2 Views IMPRESSION: Acute horizontal fracture of the patella. Moderate joint effusion. Readin (more content not included)... Normal [facility] Ankle min 3 Viewson 10-10-19 Ankle min 3 Views [facility] [address] [place] [address] Ankle min 3 Views MR#: [id number] Acct: [id number] Name: ROMEO GONZALES Rep #: [id number] : 1985 M 38 From: Sarika Nelson nd, MD PCP: Dr. Ander Nicholson DO Status: REG ER Study: Ankle min 3 Views Date of Exam: 10/09/24 Exam# [id number] Ordering Dr: Fadia Warren DO PROCEDURE: ANKLE MIN 3 VIEWS 10/09/2024 REASON FOR EXAM: INJURY/PAIN TECHNIQUE: 3 views of the right ankle COMPARISON: None. FINDINGS: Bones: Severe diffuse osseous demineralization. No obvious acute fracture. No aggressive osseous lesions. Joints: Normal alignment. [place] appears grossly intact. Soft tissues: Soft tissues are unremarkable. RAD/Ankle min 3 Views IMPRESSION: Severe diffuse osseous demineralization. No obvious acute fracture. Reading Location: [id number] CC: Dr. Fadia Warren DO; Dr. Ander Nicholson DO Instructor Military Science: Signed Normal [facility] Consultation - Orthopedicson 10-09-2024 Consultation - Orthopedics [facility] Medical Records Department [address] [place] [address] Consultation - Orthopedics 10/09/24 1733 MR#: [id number] Acct: [id number] Name: ROMEO GONZALES Rep #: [id number] : 1985 38 From: Adonay Alexander MD PCP: Dr. Ander Nicholson, Status:REG ER Location: ED HPI Consult Data Date of Consult: 10/09/24 HPI Narrative HPI Narrative: ROMEO GONZALES, is a 38 M who presents with a patella fracture in a kaylene plegic patient. [facility] Medical History (Updated 10/09/24 @ 17:34 by Adonay Alexander MD) Patella fracture Aphasia as late effect of stroke Hemiparesis affecting right side as late effect of cerebrovascular accident Generalized weakness Hyperlipidemia Ischemic cerebrovascular accident (CVA) Fecal incontinence Urinary incontinence Debility Current use of retirement anticoagulation DVT (deep venous thrombosis) Subarachnoid hemorrhage Dissection of cerebral artery Obesity (BMI 30-39.9) Arterial ischemic stroke, MCA (middle cerebral artery), left, acute Stroke/cerebrovascular accident Hypertension Home Medications ???Medication ???Instructions ???Recorded ???Last Taken ???Type acetaminophen 500 mg tablet 500 mg PO Q6H PRN fever or pain Unknown Rx (Acetaminophen Pain Relief) #90 tabs apixaban 5 mg tablet 5 mg PO BID Blood clots 08/05/22 U nknown History atorvastatin 20 mg tablet 20 mg PO QHS cholesterol 08/05/22 Unknown History ipratropium bromide 42 mcg (0.06 2 spray NASAL BID airway 08/05/22 Unknown History %) nasal spray menthol-zinc oxide 0.5 %-20.65 % See Rx Instructions .ROUTE 3 Unknown History topical ointment (DermaSeptin) .COMPLEX redness Arthritis Pain Compound 3 click topical TID #2 BOTTLES 12/08 Unknown Rx dicyclomine 10 mg capsule 20 mg (2 x 10 mg) PO Q6H PRN PRN 0 12/14/22 Unknown Rx abdominal pain #20 CAPSULES ondansetron 4 mg disintegrating 8 mg (2 x 4 mg) PO Q8H PRN PRN Unknown Rx tablet Nausea #20 tabs Allergy/AdvReac Type Severity Reaction Status Date / Time No Known Allergies Allergy Verified 10/09/24 16:13 Surgical History History of cholecystectomy History of appendectomy Status post craniectomy Status post aneurysm repair Status post craniotomy Social History adopted: No household members: family housing: house number of children: 0 current occupational status: disabled Smoking Status: Never smoker alcohol intake: never substance use type: does not use Vital Signs Vital Signs Vital Signs: 10/09/24 16:13 10/09/24 16:24 Temperature 97.5 F L Temperature Source Temporal Pulse Rate 89 Respiratory Rate 15 Respiratory Effort Normal Non-Labored Respiratory Depth Normal Respiratory Pattern Normal Blood Pressure 138/104 H Blood Pressure Mean 115 Pulse Ox 96 Oxygen Delivery Method Room Air Room Air Weight Weight: 219 lb 5.759 oz Body Mass Index (BMI) 35.4 Imaging Radiology Impression Hand X-Ray 10/09/24 16:50 IMPRESSION: No obvious acute fracture. Reading Location: [facility] Knee X-Ray 10/09/24 16:50 IMPRESSION: Acute horizontal fracture of the patella. Moderate joint effusion. Reading Location: [facility] Ankle X-Ray 10/09/24 16:54 IMPRESSION: Severe diffuse osseous demineralization. No obvious acute fracture. Reading Location: [facility] Assessment Plan Assessment/Plan (1) Patella fracture: PLAN: 38 yr M with patella fracture, transverse and displaced. Recommended for surgery. Asked Dr. Warren to arrange follow up this coming week to discuss with the patient his options. For now knee immobilizer and WBAT in full extension. 10/09/24 4288 Cosigner Signature (if applicable): CC: Dr. Ander Nicholson DO Signed Normal [facility] Emergency Department Summary on 10-09-2024 Emergency Department Summary [facility] Medical Records Department [address] [place] [address] Emergency Department Summary 10/09/24 MR#: [id number] Acct: [id number] Name: ROMEO GONZALES Rep #: [id number] : 1985 38 From: Fadia Warren DO PCP: Dr. Ander Nicholson DO Status:REG ER Location: ED HPI History of Present Illness Chief Complaint: Fall Informant: patient and family Narrative Narrative: Patient is a 38-year-old male with history of cerebral aneurysm status post rupture with secondary stroke with right sided deficits presenting from home after what sounds like mechanical fall. Patient was doing his daily exercises of walking up and down the driveway. Family found him kneeling on the driveway trying to get up. It seems like he slipped and fell. Patient does not remember exactly why he fell but states he just fell really fast. He denies hitting his head. He did not scratch his glasses or break them. He initially was complaining mostly of pain in his right ankle but since then he has had pain in his right knee as well. Addition he has some pain to his right hand and abrasion/milder pain to his left knee. 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 DVT (deep venous thrombosis) Subarachnoid hemorrhage Dissection of cerebral artery Obesity (BMI 30-39.9) Arterial ischemic stroke, MCA (middle cerebral artery), left, acute Stroke/cerebrovascular accident Hypertension Home Medications ???Medication ???Instructions ???Recorded ???Last Taken ???Type acetaminophen 500 mg tablet 500 mg PO Q6H PRN fever or pain Unknown Rx (Acetaminophen Pain Relief) #90 tabs apixaban 5 mg tablet 5 mg PO BID Blood clots 08/05/22 U nknown History atorvastatin 20 mg tablet 20 mg PO QHS cholesterol 08/05/22 Unknown History ipratropium bromide 42 mcg (0.06 2 spray NASAL BID airway 08/05/22 Unknown History %) nasal spray menthol-zinc oxide 0.5 %-20.65 % See Rx Instructions .ROUTE 3 Unknown History topical ointment (DermaSeptin) .COMPLEX redness Arthritis Pain Compound 3 click topical TID #2 BOTTLES 12/08 Unknown Rx dicyclomine 10 mg capsule 20 mg (2 x 10 mg) PO Q6H PRN PRN 0 12/14/22 Unknown Rx abdominal pain #20 CAPSULES ondansetron 4 mg disintegrating 8 mg (2 x 4 mg) PO Q8H PRN PRN Unknown Rx tablet Nausea #20 tabs hydrocodone-acetaminophen 5-325mg 1 tab PO Q6H PRN PRN Pain 3 days 10/09/24 Unknown Rx 5mg-325mg #12 TABLETS Allergy/AdvReac Type Severity Reaction Status Date / Time No Known Allergies Allergy Verified 10/09/24 16:13 Surgical History History of cholecystectomy History of appendectomy Status post craniectomy Status post aneurysm repair Status post craniotomy Social History adopted: No household members: family housing: house number of children: 0 current occupational status: disabled Smoking Status: Never smoker alcohol intake: never substance use type: does not use ROS ROS ED Constitutional Constitutional ED: Denies chills or fever(s) Eyes Eyes: Denies blurry vision Cardiovascular Cardiovascular: Denies chest pain Respiratory/Chest Respiratory/Chest: Denies dyspnea Gastrointestinal Gastrointestinal: Denies abdominal pain, nausea or vomiting Musculoskeletal Musculoskeletal: Reports arthralgias, myalgias and other Details: right hand, knee and ankle pain, left knee pain ; Denies back pain or neck pain Integumentary Reports Abrasions Neurologic Neurologic: Reports weakness; Denies headache(s) or paresthesias Hematologic/Lymphatic Hematologic/Lymphatic: Denies easy bleeding or easy bruising EXAM Physical Exam Const Vital Signs: 10/09/24 16:13 10/09/24 16:24 Temperature 97.5 F L Temperature Source Temporal Pulse Rate 89 Respiratory Rate 15 Respiratory Effort Normal Non-Labored Respiratory Depth Normal Respiratory Pattern Normal Blood Pressure 138/104 H Blood Pressure Mean 115 Pulse Ox 96 Oxygen Delivery Method Room Air Room Air Positive well nourished and well developed General Appearance ED: well developed and NAD HEENT Reports TM's clear atraumatic Tympanic Membrane ED: Yes TM's clear Eyes PERRL Chest Wall inspection of chest normal and palpation of chest normal Chest Narrative: No chest wall crepitus Resp normal respiratory effort and clear to auscu (more content not included)... Normal [facility] Hand Min 3 Viewson Hand Min 3 Views [facility] [address] [place] [address] Hand Min 3 Views MR#: [id number] Acct: [id number] Name: ROMEO GONZALES Rep #: [id number] : 1985 M 38 From: Sarika Nelson nd, MD PCP: Dr. Ander Nicholson DO Status: REG ER Study: Hand Min 3 Views Date of Exam: 10/09/24 Exam# [id number] Ordering Dr: Fadia Warren DO PROCEDURE: HAND MIN 3 VIEWS 10/09/2024 REASON FOR EXAM: INJURY/PAIN TECHNIQUE: 3 view(s) of the right hand COMPARISON: None. FINDINGS: Visualization is limited by patient positioning from chronic stroke. Bones: No obvious acute fracture. No aggressive osseous lesions. Joints: Normal alignment. Mild degenerative changes. Soft tissues: Soft tissues are unremarkable. RAD/Hand Min 3 Views IMPRESSION: No obvious acute fracture. Reading Location: [facility] CC: Dr. Fadia Warren DO; Dr. Ander Nicholson DO Instructor Military Science: Signed Normal [facility] Knee 1 or 2 Viewson 10-10-19 Knee 1 or 2 Views [facility] [address] [place], [place] [id number] Knee 1 or 2 Views MR#: [id number] Acct: [id number] Name: ROMEO GONZALES Rep #: [id number] : 1985 M 38 From: Sarika Nelson nd, MD PCP: Dr. Ander Nicholson DO Status: REG ER Study: Knee 1 or 2 Views Date of Exam: 10/09/24 Exam# [id number] Ordering Dr: Fadia Warren DO PROCEDURE: KNEE 1 OR 2 VIEWS 10/09/2024 REASON FOR EXAM: INJURY/PAIN TECHNIQUE: 2 view(s) of the right knee COMPARISON: None. FINDINGS: Bones: Acute horizontal fracture of the patella with mild distraction of the fracture fragments. No suspicious osseous lesion. Joints: Normal alignment. Mild degenerative changes. Effusion: Moderate joint effusion. Soft tissues: Mild soft tissue swelling. RAD/Knee 1 or 2 Views IMPRESSION: Acute horizontal fracture of the patella. Moderate joint effusion. Reading Location: [id number] CC: Dr. Fadia Warren DO; Dr. Ander Nicholson DO Instructor Military Science: Signed Normal [facility] Office Visit Reporton 2023 Office Visit Report [facility] [address] [place] [address] OFFICE VISIT Date of Service: 02/14/24 MR#: [id number] Acct: [id number] Patient: ROMEO GONZALES Rep #: [id number] : 1985 Provider: IRENA Ernst Age/Sex: 38/M Location: [facility] [place] Status: Signed Intake Vital Signs 04/08/23 16:58 02/14/24 09:17 Height 5 ft 6 in 5 ft 6 in Weight: 218 lb BMI 35.2 BP 126/82 H Blood Pressure Location Lt brachial Position Sitting Respiration 14 Pulse 88 Pulse Source Monitor Temp 99.1 F Temp Source Temporal Pulse Oximetry (%) 97 Oxygen Delivery Method room air Intake Visit Reasons: L SIDED FACIAL SWELLING/PAIN Chief Complaint: acquired skull defect Allergies No Known Allergies Allergy (Verified 02/14/24 09:18) [facility] Medical History Aphasia as late effect of stroke Arterial ischemic stroke, MCA (middle cerebral artery), left, acute 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 Debility Dissection of cerebral artery DVT (deep venous thrombosis) Fecal incontinence Generalized weakness Hemiparesis affecting right side as late effect of cerebrovascular accident Hyperlipidemia Hypertension Ischemic cerebrovascular accident (CVA) Obesity (BMI 30-39.9) Stroke/cerebrovascular accident Subarachnoid hemorrhage Urinary incontinence Surgical History History of appendectomy History of cholecystectomy Status post aneurysm repair Status post craniectomy Status post craniotomy Social History adopted: No household members: family housing: house number of children: 0 current occupational status: disabled Smoking Status: Never smoker alcohol intake: never substance use type: does not use HPI HPI Chief Complaint: acquired skull defect Details: ROMEO GONZALES, is a 38 M who presents to the office today for left-sided facial swelling. Patient does have a history of dental caries with infections. He awoke this morning with the swelling on the left side of his face. It is slightly painful. They have not done anything else for this. He denies fevers, chills, body aches, fatigue. ROS Const Constitutional: Positive for other (ROS negative x 6 except what is described above) Exam Const General: cooperative, healthy appearing and no acute distress Nutritional Appearance: average body habitus Orientation: alert, awake and oriented x3 Other: right-sided weakness from stroke. HENMT Head: normal to inspection and atraumatic Ears: hearing grossly normal bilaterally Nose: external nose normal Face and sinus: other (Left-sided facial swelling) Mouth: oral mucosae normal Teeth and gingiva: gingiva abnormal (Redness and swelling on left upper jaw, dental caries noted around teeth th) and poor dentition Eyes General: appearance normal, both eyes and all related structures Resp Effort Inspection: normal respiratory effort Auscultation: Bilateral: Clear to Auscultation Cardio Palpation: normal PMI Rate: regular rate Rhythm: regular rhythm Heart Sounds: S1 normal, S2 normal, no gallops, no murmurs and no rubs GI Inspection: normal to inspection Auscultation: normal bowel sounds Palpation: soft, no hepatosplenomegaly and nontender Neuro General: patient alert, patient awake, patient oriented x3 and CN's II-XI intact bilaterally Coding Level of Care Code Off vis,est,level 3 Diagnoses Infected dental caries K02.9; K04.7 Assessment and Plan Assessment and Plan (1) Infected dental caries: Status: Acute Plan: Will treat with amoxicillin. Advised to call dentist on Friday. 02/14/24 0924 A> Date Erika Robison Signature: Date (if applicable) CC: Normal [facility] Glucoseon 01-01-2024 Glucose [Mass/Vol] 108 mg/dL High 74-106 [facility] Comment on above: Result Comment: Fast ing Glucose result from 100 to 125 mg/dL suggests IMPAIRED HOMEOSTASIS per A.D.A. criteria. Performed By: #### L 500.4100, L501.0100, L501.9985 #### [facility] [address] [place], [place], [id number] Hemoglobin A1con 01-01-2024 HbA1c (Bld) [Mass fraction] 5.3 % Normal 3.8-5.6 [facility] Comment on above: Result Comment: Norm al < 5.7 % Prediabetic 5.7 - 6.4 % Diabetic >or= 6.5 % Please note range changes. Performed By: #### L 500.4100, L501.0100, L501.9985 #### [facility] [address] [place], [place], [id number] Lipid Profileon 01-01-2024 Cholesterol [Mass/Vol] 168 mg/dL Normal 200 [facility] Comment on above: Result Comment: <200 mg/dL Desirable 200-240 mg/dL Borderline >240 mg/dL High Risk Performed By: #### L 500.4100, L501.0100, L501.9985 #### [facility] [address] [place], [place], [address] Cholesterol in HDL [Mass/Vol] 35 mg/dL Low [facility] Comment on above: Result Comment: The drugs N-Acetylcysteine and Metamizole may falsely depress this assay. Reference Range HDL <40 mg/dL Low HDL Cholesterol HDL >or= 60 mg/dL High HDL Cholesterol Performed By: #### L 500.4100, L501.0100, L501.9985 #### [facility] [address] [place], [address] Cholesterol in LDL [Mass/Vol] 102 mg/dL Normal 0-130 [facility] Comment on above: Performed By: #### L 500.4100, L501.0100, L501.9985 #### [facility] [address] [place], [address] Cholesterol in VLDL [Mass/Vol] 31 mg/dL Normal 5-40 [facility] Comment on above: Performed By: #### L 500.4100, L501.0100, L501.9985 #### [facility] [address] [place], [address] Triglyceride [Mass/Vol] 153 mg/dL Normal [facility] Comment on above: Result Comment: The drugs N-Acetylcysteine and Metamizole may falsely depress this assay. Serum Triglycerides Reference Interval Normal <150 mg/dL Borderline high 150 - 199 mg/dL High 200 - 499 mg/dL Very High > or = 500 mg/dL Performed By: #### L 500.4100, L501.0100, L501.9985 #### [facility] [address] [place], [address] Absolute lymphocyte countOrd ered By: Ander Nicholson on 02-17-2023 Lymphocytes Auto (Unsp spec) [#/Vol] 1.95 10*3/uL 0.83-4.51 [facility] Basophil percentageOrdered B y: Ander KoBharat on 02-17-2023 Basophils/100 WBC (Bld) 0.8 % 0-1 [facility] Eosinophils/100 WBC (Bld) 2.4 % 0-5 [facility] Neutrophils (Bld) [#/Vol] 4.4 10*3/uL 2.0-7.7 [facility] Neutrophils/100 WBC (Bld) 61.1 % 47-70 [facility] WBC (Bld) [#/Vol] 7.2 10*3/uL 4.4-11.0 [facility] Blood erythrocytes count (nu mber/volume)Ordered By: Ander Nicholson on 02-17-2023 RBC (Bld) [#/Vol] 5.67 10*6/uL 4.6-6.2 [facility] Blood hemoglobin measurement (mass/volume)Ordered By: Adner Nicholson on 02-17-2023 Hemoglobin (Bld) [Mass/Vol] 15.5 g/dL 13.0-16.5 [facility] Blood lymphocytes/100 leukoc ytesOrdered By: Ander Nicholson on 02-17-2023 Lymphocytes/100 WBC (Bld) 27.3 % 19-41 [facility] Blood monocytes/100 leukocyt esOrdered By: Ander Nicholson on 02-17-2023 Monocytes/100 WBC (Bld) 8.1 % 0-10 [facility] Blood platelet mean volumeOr dered By: Ander Nicholson on 02-17-2023 Platelet mean volume (Bld) [Entitic vol] 9.1 fL 6.2-12.0 [facility] Determination of erythrocyte mean corpuscular volume (MCV)Ordered By: Ander Nicholson on 02-17-2023 MCV (RBC) [Entitic vol] 85.5 fL 80-94 [facility] Hematocrit Auto (Bld) [Volum e fraction]Ordered By: Ander Nicholson on 02-17-2023 Hematocrit (Bld) [Volume fraction] 48.5 % 40-54 [facility] Laboratory - Hematology and Cell countsOrdered By: Ander Nicholson on 02-17-2023 Erythrocyte distribution width (RBC) [Entitic vol] 42.5 fL 35.1-43.9 [facility] Erythrocyte distribution width (RBC) [Ratio] 13.6 % 11.6-14.6 [facility] Immature granulocytes/100 WBC (Bld) 0.300 % 0.0-0.9 [facility] Comment on above: IG% - Immature Granu locytes (promyelocytes, myelocytes and metamyelocytes) > 1% indicates that a LEFT SHIFT is Present. MCH (RBC) [Entitic mass] 27.3 pg 27.0-32.0 [facility] Nucleated RBC/100 WBC (Bld) [Ratio] 0 % 0-5 [facility] MCHC Auto (RBC) [Mass/Vol]Or dered By: Ander Bharat on 02-17-2023 MCHC (RBC) [Mass/Vol] 32.0 g/dL 32-36 [facility] Platelets bldOrdered By: Caity Nicholson on 02-17-2023 Platelets (Bld) [#/Vol] 307 10*3/uL 150-450 [facility] Absolute lymphocyte countOrd ered By: Armen Alexis on 12-14-2022 Lymphocytes Auto (Unsp spec) [#/Vol] 1.72 10*3/uL 0.83-4.51 [facility] Basophil percentageOrdered B y: Armen Alexis on 12-14-2022 Basophil percentage 0 SEEN /hpf 0-5 [facility] Basophils/100 WBC (Bld) 0.5 % 0-1 [facility] Bilirubin [Mass/Vol] 0.40 mg/dL 0.20-1.00 [facility] Comment on above: For patients on eltr ombopag therapy, use of Dimension [place] TBIL is not recommended. Chloride [Moles/Vol] 106 mmol/L 98-107 [facility] Eosinophils/100 WBC (Bld) 1.3 % 0-5 [facility] Glucose [Mass/Vol] 147 mg/dL 74-106 [facility] Comment on above: Fasting Glucose resu lt greater than or equal to 126 mg/dL suggests DIABETES MELLITUS per A.D.A. criteria. Neutrophils (Bld) [#/Vol] 12.3 10*3/uL 2.0-7.7 [facility] Neutrophils/100 WBC (Bld) 81.1 % 47-70 [facility] Potassium [Moles/Vol] 4.2 mmol/L 3.5-5.1 [facility] Protein [Mass/Vol] 7.9 g/dL 6.4-8.2 [facility] Sodium [Moles/Vol] 139 mmol/L 136-145 [facility] WBC (Bld) [#/Vol] 15.1 10*3/uL 4.4-11.0 [facility] Bilirubin Test strip Ql (U)O rdered By: Armen Alexis on 12-14-2022 Bilirubin Ql (U) Negative Negative [facility] Blood erythrocytes count (nu mber/volume)Ordered By: Armen Alexis on 12-14-2022 RBC (Bld) [#/Vol] 5.50 10*6/uL 4.6-6.2 [facility] Blood hemoglobin measurement (mass/volume)Ordered By: Armen Alexis on 12-14-2022 Hemoglobin (Bld) [Mass/Vol] 14.9 g/dL 13.0-16.5 [facility] Blood lymphocytes/100 leukoc ytesOrdered By: Armen Alexis on 12-14-2022 Lymphocytes/100 WBC (Bld) 11.4 % 19-41 [facility] Blood monocytes/100 leukocyt esOrdered By: Armen Alexis on 12-14-2022 Monocytes/100 WBC (Bld) 5.4 % 0-10 [facility] Blood platelet mean volumeOr dered By: Armen Alexis on 12-14-2022 Platelet mean volume (Bld) [Entitic vol] 8.7 fL 6.2-12.0 [facility] Determination of erythrocyte mean corpuscular volume (MCV)Ordered By: Armen Alexis on 12-14-2022 MCV (RBC) [Entitic vol] 83.6 fL 80-94 [facility] Hematocrit Auto (Bld) [Volum e fraction]Ordered By: Armen Alexis on 12-14-2022 Hematocrit (Bld) [Volume fraction] 46.0 % 40-54 [facility] Ketones Test strip Ql (U)Ord ered By: Armen Alexis on 12-14-2022 Ketones Ql (U) 5 mg/dl Negative [facility] Laboratory - Chemistry and C hemistry - challengeOrdered By: Armen Alexis on 12-14-2022 ALP [Catalytic activity/Vol] 139 U/L 45-117 [facility] ALT [Catalytic activity/Vol] 38 U/L 16-61 [facility] CO2 [Moles/Vol] 28.0 mmol/L 21.0-32.0 [facility] Globulin (S) [Mass/Vol] 4.4 g/dL 2.2-4.2 [facility] Lipase [Catalytic activity/Vol] 39 U/L 13-75 [facility] Comment on above: Please note:LIPASE r evised reference range effective 22. New Lipase methodology. Expected to produce lower values than the previous assay method. NEW Reference Range: 13 - 75 U/L Urea nitrogen/Creatinine [Mass ratio] 14.6 mg/mg 10-20 [facility] - Hematology and Cell countsOrdered By: Armen Alexis on 12-14-2022 Erythrocyte distribution width (RBC) [Entitic vol] 40.9 fL 35.1-43.9 [facility] Erythrocyte distribution width (RBC) [Ratio] 13.4 % 11.6-14.6 [facility] Immature granulocytes/100 WBC (Bld) 0.300 % 0.0-0.9 [facility] Comment on above: IG% - Immature Granu locytes (promyelocytes, myelocytes and metamyelocytes) > 1% indicates that a LEFT SHIFT is Present. MCH (RBC) [Entitic mass] 27.1 pg 27.0-32.0 [facility] Nucleated RBC/100 WBC (Bld) [Ratio] 0 % 0-5 [facility] MCHC Auto (RBC) [Mass/Vol]Or dered By: Armen Alexis on 12-14-2022 MCHC (RBC) [Mass/Vol] 32.4 g/dL 32-36 [facility] Mucus LM Ql (Urine sed)Order ed By: Armen Alexis on 12-14-2022 Mucus Ql (Urine sed) 1+ /hpf [facility] Nitrite Test strip Ql (U)Ord ered By: Armen Alexis on 12-14-2022 Nitrite Ql (U) Negative Negative [facility] No Panel InformationOrdered By: Armen Alexis on 12-14-2022 Estimated Creatinine Clearance Calc 86.89 ml/min [facility] Estimated GFR (MDRD) Amer 103 mL/min >60 [facility] Comment on above: GFR Calc Estimated GFR (MDRD) Non-Af Amer 85 mL/min >60 [facility] Comment on above: Non- GFR Calc Platelets bldOrdered By: Nikky Alexis on 12-14-2022 Platelets (Bld) [#/Vol] 325 10*3/uL 150-450 [facility] Protein Test strip Ql (U)Ord ered By: Armen Alexis on 12-14-2022 Protein Ql (U) 30 mg/dl Negative [facility] Serum or plasma albumin crystal urement (mass/volume)Ordered By: Armen Alexis on 12-14-2022 Albumin [Mass/Vol] 3.5 g/dL 3.2-5.0 [facility] Serum or plasma albumin/glob ulin mass ratioOrdered By: Armen Alexis on 12-14-2022 Albumin/Globulin [Mass ratio] 0.8 {ratio} 0.9-2.4 [facility] Serum or plasma calcium crystal urement (mass/volume)Ordered By: Armen Alexis on 12-14-2022 Calcium [Mass/Vol] 9.4 mg/dL 8.5-10.1 [facility] Serum or plasma creatinine m easurement (mass/volume)Ordered By: Armen Alexis on 12-14-2022 Creatinine [Mass/Vol] 1.03 mg/dL 0.70-1.30 [facility] Comment on above: The validity of the calculated GFR & GFRAA in patients over 70 years has not been determined. Clinical correlation is essential. Serum or plasma urea nitroge n measurement (mass/volume)Ordered By: Armen Alexis on 12-14-2022 Urea nitrogen [Mass/Vol] 15 mg/dL 7-18 [facility] Squamous epithelial cells de tection in urine sediment by light microscopyOrdered By: Armen Alexis on 12-14-2022 Epithelial cells.squamous LM Ql (Urine sed) 0 SEEN /hpf 0-5 [facility] Thin prep Papanicolaou smear with manual screeningOrdered By: Armen Alexis on 12-14-2022 Thin prep Papanicolaou smear with manual screening 12 U/L 15-37 [facility] Thin prep Papanicolaou smear with manual screening 5 5-15 [facility] Urine blood detectionOrdered By: Armen Alexis on 12-14-2022 RBC Ql (U) Negative Negative [facility] RBC Ql (U) 0-5 SEEN /hpf 0-5 [facility] Urine clarityOrdered By: Nikky Alexis on 12-14-2022 Clarity (U) Clear Clear [facility] Urine color determinationOrd ered By: Armen Alexis on 12-14-2022 Color (U) Yellow Yellow [facility] Urine glucose detectionOrder ed By: Armen Alexis on 12-14-2022 Glucose Ql (U) Normal mg/dl Normal [facility] Urine leukocyte esterase det ection by dipstickOrdered By: Armen Alexis on 12-14-2022 Leukocyte esterase Test strip Ql (U) 25 /ul Negative [facility] Urine pHOrdered By: Armen Alexis on 12-14-2022 pH (U) 5.0 [pH] 5.0 - 8.0 [facility] Urine sediment bacteria coun t by microscopy (number/high power field)Ordered By: Armen Alexis on 12-14-2022 Bacteria LM.HPF (Urine sed) [#/Area] 1 /[HPF] None Seen [facility] Urine specific gravity measu rementOrdered By: Armen Alexis on 12-14-2022 Specific gravity (U) [Rel density] 1.030 1.002-1.030 [facility] Urobilinogen Auto test strip Ql (U)Ordered By: Armen Alexis on 12-14-2022 Urobilinogen Ql (U) 1 mg/dl Normal [facility] Basophil percentageOrdered B y: Dr. Nicholson on 10-19-2022 Cholesterol [Mass/Vol] 194 mg/dL <200 [facility] Comment on above: <200 mg/dL Desirable 200-240 mg/dL Borderline >240 mg/dL High Risk Triglyceride [Mass/Vol] 144 mg/dL <199 [facility] Comment on above: The drugs N-Acetylcy steine and Metamizole may falsely depress this assay.Serum Triglycerides Reference Interval Normal <150 mg/dL Borderline high 150 - 199 mg/dL High 200 - 499 mg/dL Very High > or = 500 mg/dL Serum or plasma cholesterol in HDL measurement (mass/volume)Ordered By: Dr. Nicholson on 10-19-2022 Cholesterol in HDL [Mass/Vol] 38 mg/dL >40 [facility] Comment on above: The drugs N-Acetylcy steine and Metamizole may falsely depress this assay. Reference Range HDL <40 mg/dL Low HDL Cholesterol HDL >or= 60 mg/dL High HDL Cholesterol Serum or plasma cholesterol in VLDL measurement (mass/volume)Ordered By: Dr. Nicholson on 10-19-2022 Cholesterol in VLDL [Mass/Vol] 29 mg/dL 5-40 [facility] Serum or plasma low density lipoprotein (LDL) cholesterol measurement (mass/volume)Ordered By: Dr. Nicholson on 10-19-2022 Cholesterol in LDL [Mass/Vol] 127 mg/dL 0-130 [facility] Basophil percentageOrdered B y: Dr. Wallace on 08-21-2022 Bilirubin [Mass/Vol] 0.40 mg/dL 0.20-1.00 [facility] Comment on above: For patients on eltr ombopag therapy, use of Dimension [place] TBIL is not recommended. Chloride [Moles/Vol] 107 mmol/L 98-107 [facility] Glucose [Mass/Vol] 102 mg/dL 74-106 [facility] Comment on above: Fasting Glucose resu lt from 100 to 125 mg/dL suggests IMPAIRED HOMEOSTASIS per A.D.A. criteria. Potassium [Moles/Vol] 4.2 mmol/L 3.5-5.1 [facility] Protein [Mass/Vol] 7.1 g/dL 6.4-8.2 [facility] Sodium [Moles/Vol] 140 mmol/L 136-145 [facility] WBC (Bld) [#/Vol] 8.0 10*3/uL 4.4-11.0 [facility] Blood erythrocytes count (nu mber/volume)Ordered By: Dr. Wallace on 08-21-2022 RBC (Bld) [#/Vol] 5.08 10*6/uL 4.6-6.2 [facility] Blood hemoglobin measurement (mass/volume)Ordered By: Dr. Wallace on 08-21-2022 Hemoglobin (Bld) [Mass/Vol] 14.2 g/dL 13.0-16.5 [facility] Blood platelet mean volumeOr dered By: Dr. Wallace on 08-21-2022 Platelet mean volume (Bld) [Entitic vol] 8.8 fL 6.2-12.0 [facility] Determination of erythrocyte mean corpuscular volume (MCV)Ordered By: Dr. Wallace on 08-21-2022 MCV (RBC) [Entitic vol] 85.6 fL 80-94 [facility] Hematocrit Auto (Bld) [Volum e fraction]Ordered By: Dr. Wallace on 08-21-2022 Hematocrit (Bld) [Volume fraction] 43.5 % 40-54 [facility] Laboratory - Chemistry and C hemistry - challengeOrdered By: Dr. Wallace on 08-21-2022 ALP [Catalytic activity/Vol] 143 U/L 45-117 [facility] ALT [Catalytic activity/Vol] 84 U/L 16-61 [facility] CO2 [Moles/Vol] 30.0 mmol/L 21.0-32.0 [facility] Globulin (S) [Mass/Vol] 3.9 g/dL 2.2-4.2 [facility] Urea nitrogen/Creatinine [Mass ratio] 20.6 mg/mg 10-20 [facility] - Hematology and Cell countsOrdered By: Dr. Wallace on 08-21-2022 Erythrocyte distribution width (RBC) [Entitic vol] 38.4 fL 35.1-43.9 [facility] Erythrocyte distribution width (RBC) [Ratio] 12.2 % 11.6-14.6 [facility] MCH (RBC) [Entitic mass] 28.0 pg 27.0-32.0 [facility] MCHC Auto (RBC) [Mass/Vol]Or dered By: Dr. Wallace on 08-21-2022 MCHC (RBC) [Mass/Vol] 32.6 g/dL 32-36 [facility] No Panel InformationOrdered By: Dr. Wallace on 08-21-2022 Estimated Creatinine Clearance Calc 93.18 ml/min [facility] Estimated GFR (MDRD) Amer 111 mL/min >60 [facility] Comment on above: GFR Calc Estimated GFR (MDRD) Non-Af Amer 92 mL/min >60 [facility] Comment on above: Non- GFR Calc Platelets bldOrdered By: Dr. Wallace on 08-21-2022 Platelets (Bld) [#/Vol] 337 10*3/uL 150-450 [facility] Serum or plasma albumin crystal urement (mass/volume)Ordered By: Dr. Wallace on 08-21-2022 Albumin [Mass/Vol] 3.2 g/dL 3.2-5.0 [facility] Serum or plasma albumin/glob ulin mass ratioOrdered By: Dr. Wallace on 08-21-2022 Albumin/Globulin [Mass ratio] 0.8 {ratio} 0.9-2.4 [facility] Serum or plasma calcium crystal urement (mass/volume)Ordered By: Dr. Wallace on 08-21-2022 Calcium [Mass/Vol] 9.2 mg/dL 8.5-10.1 [facility] Serum or plasma creatinine m easurement (mass/volume)Ordered By: Dr. Wallace on 08-21-2022 Creatinine [Mass/Vol] 0.97 mg/dL 0.70-1.30 [facility] Comment on above: The validity of the calculated GFR & GFRAA in patients over 70 years has not been determined. Clinical correlation is essential. Serum or plasma urea nitroge n measurement (mass/volume)Ordered By: Dr. Wallace on 08-21-2022 Urea nitrogen [Mass/Vol] 20 mg/dL 7-18 [facility] Thin prep Papanicolaou smear with manual screeningOrdered By: Dr. Wallace on 08-21-2022 Thin prep Papanicolaou smear with manual screening 17 U/L 15-37 [facility] Thin prep Papanicolaou smear with manual screening 3 5-15 [facility] Whole blood hemoglobin A1c/t otal hemoglobin ratio (mass fraction)Ordered By: Dr. Wallace on 08-21-2022 HbA1c (Bld) [Mass fraction] 5.7 % 3.8-5.6 [facility] Comment on above: Normal < 5.7 % Predi abetic 5.7 - 6.4 % Diabetic >or= 6.5 % Please note range changes. Absolute lymphocyte countOrd ered By: Dr. Wallace on 08-06-2022 Lymphocytes Auto (Unsp spec) [#/Vol] 1.65 10*3/uL 0.83-4.51 [facility] Basophil percentageOrdered B y: Dr. Wallace on 08-06-2022 Basophil percentage 4.8 mg/dL 2.5-4.9 [facility] Basophils/100 WBC (Bld) 0.6 % 0-1 [facility] Eosinophils/100 WBC (Bld) 3.7 % 0-5 [facility] Neutrophils (Bld) [#/Vol] 4.8 10*3/uL 2.0-7.7 [facility] Neutrophils/100 WBC (Bld) 60.9 % 47-70 [facility] Blood lymphocytes/100 leukoc ytesOrdered By: Dr. Wallace on 08-06-2022 Lymphocytes/100 WBC (Bld) 21.1 % 19-41 [facility] Blood monocytes/100 leukocyt esOrdered By: Dr. Wallace on 08-06-2022 Monocytes/100 WBC (Bld) 13.4 % 0-10 [facility] - Chemistry and C hemistry - challengeOrdered By: Dr. Wallace on 08-06-2022 Magnesium [Mass/Vol] 2.2 mg/dL 1.6-2.6 [facility] Laboratory - Hematology and Cell countsOrdered By: Dr. Wallace on 08-06-2022 Immature granulocytes/100 WBC (Bld) 0.300 % 0.0-0.9 [facility] Comment on above: IG% - Immature Granu locytes (promyelocytes, myelocytes and metamyelocytes) > 1% indicates that a LEFT SHIFT is Present. Nucleated RBC/100 WBC (Bld) [Ratio] 0 % 0-5 [facility] CALCIUMon 08-05-2022 Calcium [Mass/Vol] 9.3 mg/dL Normal 8.6-10.5 [facility] Comment on above: Performed By: #### I PB, MGO, CA, CHM7 ####[facility] (DEFAULT)[address] [place] [address] Calcium [Mass/Vol] 9.3 mg/dL 8.6 - 10. 5 mg/dL [facility] CBC AND ELECTRONIC DIFFon Basophils (Bld) [#/Vol] 0.06 10*3/uL Normal 0.00-0.09 [facility] Comment on above: Performed By: #### L [id number] ####[facility] (DEFAULT)[address] [place] [address] Basophils/100 WBC (Bld) 0.8 % Normal [facility] Comment on above: Performed By: #### L [id number] ####[facility] (DEFAULT)[address] [facility] [place] [address] DIFF STATUS Electronic Differential Normal [facility] Comment on above: Performed By: #### L [id number] ####[facility] (DEFAULT)[address] [facility] [place] [address] Eosinophils (Bld) [#/Vol] 0.30 10*3/uL Normal 0.00-0.48 [facility] Comment on above: Performed By: #### L [id number] ####[facility] (DEFAULT)[address] [facility] [place] [address] Eosinophils/100 WBC (Bld) 4.0 % Normal [facility] Comment on above: Performed By: #### L [id number] ####[facility] (DEFAULT)[address] [facility] [place] [address] Hematocrit (Bld) [Volume fraction] 39.6 % Normal 39.6-48.8 [facility] Comment on above: Performed By: #### L [id number] ####[facility] (DEFAULT)[address] [facility] [place] [address] Hemoglobin (Bld) [Mass/Vol] 13.4 g/dL Normal 13.4-16.8 [facility] Comment on above: Performed By: #### L [id number] ####[facility] (DEFAULT)[address] [facility] [place] [address] Immature Grans % 0.3 % Normal [facility] Comment on above: Performed By: #### L [id number] ####[facility] (DEFAULT)[address] [facility] [place] [address] Immature Grans Absolute < Normal <=0.07 [facility] Comment on above: Performed By: #### L [id number] ####[facility] (DEFAULT)[address] [facility] [place] [address] Lymphocytes (Bld) [#/Vol] 1.47 10*3/uL Normal 0.83-3.57 [facility] Comment on above: Performed By: #### L [id number] ####[facility] (DEFAULT)[address] [facility] [place] [address] Lymphocytes/100 WBC (Bld) 19.4 % Normal [facility] Comment on above: Performed By: #### L [id number] ####[facility] (DEFAULT)[address] [facility] [place] [address] MCV (RBC) [Entitic vol] 84.8 fL Normal 79.0-94.5 [facility] Comment on above: Performed By: #### L [id number] ####[facility] (DEFAULT)[address] [facility] [place] [address] Mean Cell Hgb 28.7 pg Normal 26.1-33.3 [facility] Comment on above: Performed By: #### L [id number] ####[facility] (DEFAULT)[address] [facility] [place] [address] Mean Cell Hgb Conc 33.8 g/dL Normal 31.9-36.5 [facility] Comment on above: Performed By: #### L [id number] ####[facility] (DEFAULT)[address] [place] [address] Monocytes (Bld) [#/Vol] 1.02 10*3/uL High 0.24-0.93 [facility] Comment on above: Performed By: #### L [id number] ####[facility] (DEFAULT)[address] [place] [address] Monocytes/100 WBC (Bld) 13.5 % Normal [facility] Comment on above: Performed By: #### L [id number] ####[facility] (DEFAULT)[address] [place] [address] Nucleated RBC 0.0 /100 WBC Normal <=0.2 [facility] Comment on above: Performed By: #### L [id number] ####[facility] (DEFAULT)[address] [facility] [place] [place] [address] Platelet mean volume (Bld) [Entitic vol] 8.6 fL Low 8.7-12.3 [facility] Comment on above: Performed By: #### L [id number] ####[facility] (DEFAULT)[address] [facility] [place] [place] [address] Platelets (Bld) [#/Vol] 320 10*3/uL Normal 146-337 [facility] Comment on above: Performed By: #### L [id number] ####[facility] (DEFAULT)[address] [facility] [place] [address] RBC (Bld) [#/Vol] 4.67 10*6/uL Normal 4.38-5.83 [facility] Comment on above: Performed By: #### L [id number] ####[facility] (DEFAULT)[address] [facility] [place] [address] RBC Distribution 12.4 % Normal 10.9-14.3 [facility] Comment on above: Performed By: #### L [id number] ####[facility] (DEFAULT)[address] [facility] [place] [address] Segs + Bands Auto 62.0 % Normal [facility] Comment on above: Performed By: #### L [id number] ####[facility] (DEFAULT)[address] [facility] [place] [address] Segs + Bands,Absolute Auto 4.70 K/uL Normal 1.57-6.19 [facility] Comment on above: Performed By: #### L [id number] ####[facility] (DEFAULT)[address] [place] [address] WBC (Bld) [#/Vol] 7.57 10*3/uL Normal 3.73-10.10 [facility] Comment on above: Performed By: #### L [id number] ####[facility] (DEFAULT)[address] [place] [address] Basophils (Bld) [#/Vol] 0.06 10*3/uL 0.00 - 0.09 K/uL [facility] Basophils/100 WBC (Bld) 0.8 % [facility] Differential cell count method Nom (Bld) Electronic Differential [facility] Eosinophils (Bld) [#/Vol] 0.30 10*3/uL 0.00 - 0.48 K/uL [facility] Eosinophils/100 WBC (Bld) 4.0 % [facility] Erythrocyte distribution width (RBC) [Ratio] 12.4 % 10.9 - 14.3 % [facility] Hematocrit (Bld) [Volume fraction] 39.6 % 39.6 - 48.8 % [facility] Hemoglobin (Bld) [Mass/Vol] 13.4 g/dL 13.4 - 16.8 g/dL [facility] Immature granulocytes (Bld) [#/Vol] K/uL NINF - 0.07 K/uL [facility] Immature granulocytes/100 WBC (Bld) 0.3 % [facility] Interpretation and review of laboratory results Abnormal [facility] Lymphocytes (Bld) [#/Vol] 1.47 10*3/uL 0.83 - 3.57 K/uL [facility] Lymphocytes/100 WBC (Bld) 19.4 % [facility] MCH (RBC) [Entitic mass] 28.7 pg 26.1 - 33.3 pg [facility] MCHC (RBC) [Mass/Vol] 33.8 g/dL 31.9 - 36.5 g/dL [facility] MCV (RBC) [Entitic vol] 84.8 fL 79.0 - 94.5 fL [facility] Monocytes (Bld) [#/Vol] 1.02 10*3/uL High 0.24 - 0.93 K/uL [facility] Monocytes/100 WBC (Bld) 13.5 % [facility] Neutrophils (Bld) [#/Vol] 4.70 10*3/uL 1.57 - 6.19 K/uL [facility] Nucleated RBC/100 WBC (Bld) [Ratio] 0.0 % NINF [facility] Platelet mean volume (Bld) [Entitic vol] 8.6 fL Low 8.7 - 12.3 fL [facility] Platelets (Bld) [#/Vol] 320 10*3/uL 146 - 337 K/uL [facility] RBC (Bld) [#/Vol] 4.67 10*6/uL [facility] Segmented neutrophils/100 WBC (Bld) 62.0 % [facility] WBC (Bld) [#/Vol] 7.57 10*3/uL 3.73 - 10. 10 K/uL [facility] CHEM 7 (LYTES,BUN,CREA,GLUC) on 08-05-2022 Anion gap [Moles/Vol] 15 mmol/L Normal 7-17 [facility] Comment on above: Performed By: #### I PB, MGO, CA, CHM7 ####[facility] (DEFAULT)[address] [place] [address] Chloride [Moles/Vol] 102 mmol/L Normal 98-108 [facility] Comment on above: Performed By: #### I PB, MGO, [place], CHM7 ####[facility] (DEFAULT)[address] [place] [address] CO2 [Moles/Vol] 23 mmol/L Normal 21-31 [facility] Comment on above: Performed By: #### I PB, MGO, CA, CHM7 ####[facility] (DEFAULT)[address] [facility] [place] [address] Creatinine [Mass/Vol] 0.65 mg/dL Low 0.70-1.30 [facility] Comment on above: Performed By: #### I PB, MGO, CA, CHM7 ####[facility] (DEFAULT)[address] [place] [address], [place] [address] eGFR, CKD-EPI, Male > Normal >=60 [facility] Comment on above: Result Comment: Repo rted eGFR is based on the CKD-EPI 2020 equation using creatinine, age, and sex. Performed By: #### I PB, MGO, CA, CHM7 ####[facility] (DEFAULT)[address] [place] [id number] Glucose [Mass/Vol] 98 mg/dL Normal 70-99 [facility] Comment on above: Performed By: #### I PB, MGO, CA, CHM7 ####[facility] (DEFAULT)[address] [place] [address], [place] [address] Osmolality [Osmolality] 286 mosm/kg Normal 278-305 [facility] Comment on above: Performed By: #### I PB, MGO, CA, CHM7 ####[facility] (DEFAULT)[address] [place] [address], [place] [address] Potassium [Moles/Vol] 4.1 mmol/L Normal 3.5-5.0 [facility] Comment on above: Performed By: #### I PB, MGO, CA, CHM7 ####[facility] (DEFAULT)[address] [place] [address], [place] [address] Sodium [Moles/Vol] 136 mmol/L Normal 135-145 [facility] Comment on above: Performed By: #### I PB, MGO, CA, CHM7 ####[facility] (DEFAULT)[address] [facility] [place] [address] Urea nitrogen [Mass/Vol] 14 mg/dL Normal 7-25 [facility] Comment on above: Performed By: #### I PB, MGO, CA, CHM7 ####[facility] (DEFAULT)[address] [facility] [place] [address] Urea nitrogen/Creatinine [Mass ratio] 22 mg/mg Normal [facility] Comment on above: Performed By: #### I PB, MGO, CA, CHM7 ####[facility] (DEFAULT)[address] [place] [address] Anion gap [Moles/Vol] 15 mmol/L 7 - 17 [facility] Chloride [Moles/Vol] 102 mmol/L 98 - 10 8 mmol/L [facility] CO2 [Moles/Vol] 23 mmol/L 21 - 31 mmol/L [facility] Creatinine [Mass/Vol] 0.65 mg/dL Low 0.70 - 1.30 mg/dL [facility] GFR/1.73 sq M.predicted CKD-EPI (S/P/Bld) [Vol rate/Area] - PINF [facility] Comment on above: Reported eGFR is bas ed on the CKD-EPI 2020 equation using creatinine, age, and sex. Glucose [Mass/Vol] 98 mg/dL 70 - 99 mg/dL [facility] Interpretation and review of laboratory results Abnormal [facility] Osmolality Calc [Osmolality] 286 [facility] Potassium [Moles/Vol] 4.1 mmol/L 3.5 - 5.0 mmol/L [facility] Sodium [Moles/Vol] 136 mmol/L 135 - 145 mmol/L [facility] Urea nitrogen [Mass/Vol] 14 mg/dL 7 - 25 mg/dL [facility] Urea nitrogen/Creatinine [Mass ratio] 22 mg/mg [facility] CT HEAD WITHOUT CONTRASTon 0 08-05-2022 CT HEAD WITHOUT CONTRAST Normal [facility] CT Head WO contraston 2022 IMPRESSION: 1. Evolving changes status post left hemispheric cranioplasty, as interval removal of the subgaleal drains. 2. A small focus of recent hemorrhage along the anterior margin of the chronic left MCA infarct has become less dense. No progressing intracranial hemorrhage. 3. Stable ventriculomegaly. OLOGY EXAM: CT HEAD WITHOU T CONTRAST, 08/05/2022 5:07 AM COMPARISON: CT head dated August 01, 2022 CLINICAL INDICATIONS: 36 years Male follow up; RELEVANT CLINICAL HISTORY: TECHNIQUE: A series of transaxial computerized tomographic images are obtained from base of skull to vertex without intravenous contrast. Axial whole-head and thin section posterior fossa slices are provided. Reformats: Sagittal and coronal. FINDINGS: Postoperative changes are again present following left hemispheric cranioplasty. Soft tissue swelling over the cranioplasty site has improved. The subgaleal drain is been removed and there is no enlarging soft tissue fluid collection. Tiny focus of pneumocephalus over the left hemisphere. No enlarging extra-axial fluid collection. Large focus of encephalomalacia is again present in the left MCA. The small curvilinear focus of recent hemorrhage along the far anterior margin has mildly improved as seen on series 3 image 9. No progressing intracranial hemorrhage is present. No interval loss of landon-white differentiation. No progressing parenchymal edema. 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 Stable size and configuration of the lateral ventricles with diffuse ventriculomegaly. No progressing hydrocephalus. Intracranial structures are otherwise unremarkable. RADIOLOGY Yovany Rust MD - 08/05/2022 EXAM: CT HEAD WITHOUT CONTRAST, 08/05/2022 5:07 AM COMPARISON: CT head dated August 01, 2022 CLINICAL INDICATIONS: 36 years Male follow up; RELEVANT CLINICAL HISTORY: TECHNIQUE: A series of transaxial computerized tomographic images are obtained from base of skull to vertex without intravenous contrast. Axial whole-head and thin section posterior fossa slices are provided. Reformats: Sagittal and coronal. FINDINGS: Postoperative changes are again present following left hemispheric cranioplasty. Soft tissue swelling over the cranioplasty site has improved. The subgaleal drain is been removed and there is no enlarging soft tissue fluid collection. Tiny focus of pneumocephalus over the left hemisphere. No enlarging extra-axial fluid collection. Large focus of encephalomalacia is again present in the left MCA. The small curvilinear focus of recent hemorrhage along the far anterior margin has mildly improved as seen on series 3 image 9. No progressing intracranial hemorrhage is present. No interval loss of landon-white differentiation. No progressing parenchymal edema. 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 Stable size and configuration of the lateral ventricles with diffuse ventriculomegaly. No progressing hydrocephalus. Intracranial structures are otherwise unremarkable. IMPRESSION IMPRESSION: 1. Evolving changes status post left hemispheric cranioplasty, as interval removal of the subgaleal drains. 2. A small focus of recent hemorrhage along the anterior margin of the chronic left MCA infarct has become less dense. No progressing intracranial hemorrhage. 3. Stable ventriculomegaly. [facility] Radiology Study observation (narrative) [facility] MAGNESIUMon 08-05-2022 Magnesium [Mass/Vol] 1.9 mg/dL Normal 1.6-2.6 [facility] Comment on above: Performed By: #### I PB, MGO, CA, CHM7 ####[facility] (DEFAULT)[address] [place] [address] Magnesium [Mass/Vol] 1.9 mg/dL 1.6 - 2 .6 mg/dL [facility] No Panel Informationon 08-05 Interpretation and review of laboratory results Normal [facility] PHOSPHATE, INORGANICon 08-05 Phosphorous 4.3 mg/dL Normal 2.2-4.6 [facility] Comment on above: Performed By: #### I PB, MGO, CA, CHM7 ####[facility] (DEFAULT)[address] [place] [address] Phosphate [Mass/Vol] 4.3 mg/dL 2.2 - 4 .6 mg/dL [facility] CALCIUMon 08-04-2022 Calcium [Mass/Vol] 9.3 mg/dL Normal 8.6-10.5 [facility] Comment on above: Performed By: #### C HM7, IPB, MGO, CA ####[facility] (DEFAULT)[address] [facility] [place] [address] Calcium [Mass/Vol] 9.3 mg/dL 8.6 - 10. 5 mg/dL [facility] CBC AND ELECTRONIC DIFFon Basophils (Bld) [#/Vol] 0.04 10*3/uL Normal 0.00-0.09 [facility] Comment on above: Performed By: #### L AB980 ####[facility] (DEFAULT)[address] [facility] [place] [address] Basophils/100 WBC (Bld) 0.4 % Normal [facility] Comment on above: Performed By: #### L AB980 ####[facility] (DEFAULT)[address] [facility] [place] [address] DIFF STATUS Electronic Differential Normal [facility] Comment on above: Performed By: #### L [id number] ####[facility] (DEFAULT)[address] [place] [address] Eosinophils (Bld) [#/Vol] 0.24 10*3/uL Normal 0.00-0.48 [facility] Comment on above: Performed By: #### L AB980 ####[facility] (DEFAULT)[address] [facility] [place] [address] Eosinophils/100 WBC (Bld) 2.2 % Normal [facility] Comment on above: Performed By: #### L AB980 ####[facility] (DEFAULT)[address] [place] [address] Hematocrit (Bld) [Volume fraction] 39.7 % Normal 39.6-48.8 [facility] Comment on above: Performed By: #### L AB980 ####[facility] (DEFAULT)[address] [place] [address] Hemoglobin (Bld) [Mass/Vol] 13.1 g/dL Low 13.4-16.8 [facility] Comment on above: Performed By: #### L AB980 ####[facility] (DEFAULT)[address] [facility] [place] [address] Immature Grans % 0.4 % Normal [facility] Comment on above: Performed By: #### L AB980 ####[facility] (DEFAULT)[address] [facility] [place] [address] Immature Grans Absolute 0.04 K/uL Normal <=0.07 [facility] Comment on above: Performed By: #### L AB980 ####[facility] (DEFAULT)[address] [facility] [place] [address] Lymphocytes (Bld) [#/Vol] 1.68 10*3/uL Normal 0.83-3.57 [facility] Comment on above: Performed By: #### L AB980 ####[facility] (DEFAULT)[address] [facility] [place] [address] Lymphocytes/100 WBC (Bld) 15.3 % Normal [facility] Comment on above: Performed By: #### L AB980 ####[facility] (DEFAULT)[address] [facility] [place] [address] MCV (RBC) [Entitic vol] 84.8 fL Normal 79.0-94.5 [facility] Comment on above: Performed By: #### L AB980 ####[facility] (DEFAULT)[address] [facility] [place] [address] Mean Cell Hgb 28.0 pg Normal 26.1-33.3 [facility] Comment on above: Performed By: #### L AB980 ####[facility] (DEFAULT)[address] [facility] [place] [address] Mean Cell Hgb Conc 33.0 g/dL Normal 31.9-36.5 [facility] Comment on above: Performed By: #### L AB980 ####[facility] (DEFAULT)[address] [facility] [place] [address] Monocytes (Bld) [#/Vol] 1.06 10*3/uL High 0.24-0.93 [facility] Comment on above: Performed By: #### L AB980 ####[facility] (DEFAULT)[address] [facility] [place] [address] Monocytes/100 WBC (Bld) 9.6 % Normal [facility] Comment on above: Performed By: #### L AB980 ####[facility] (DEFAULT)[address] [facility] [place] [address] Nucleated RBC 0.0 /100 WBC Normal <=0.2 [facility] Comment on above: Performed By: #### L AB980 ####[facility] (DEFAULT)[address] [facility] [place] [address] Platelet mean volume (Bld) [Entitic vol] 8.7 fL Normal 8.7-12.3 [facility] Comment on above: Performed By: #### L AB980 ####[facility] (DEFAULT)[address] [facility] [place] [address] Platelets (Bld) [#/Vol] 303 10*3/uL Normal 146-337 [facility] Comment on above: Performed By: #### L AB980 ####[facility] (DEFAULT)[address] [facility] [place] [address] RBC (Bld) [#/Vol] 4.68 10*6/uL Normal 4.38-5.83 [facility] Comment on above: Performed By: #### L AB980 ####[facility] (DEFAULT)[address] [place] [address] RBC Distribution 12.4 % Normal 10.9-14.3 [facility] Comment on above: Performed By: #### L AB980 ####[facility] (DEFAULT)[address] [facility] [place] [address] Segs + Bands Auto 72.1 % Normal [facility] Comment on above: Performed By: #### L AB980 ####[facility] (DEFAULT)[address] [facility] [place] [address] Segs + Bands,Absolute Auto 7.94 K/uL High 1.57-6.19 [facility] Comment on above: Performed By: #### L AB980 ####[facility] (DEFAULT)[address] [facility] [place] [address] WBC (Bld) [#/Vol] 11.00 10*3/uL High 3.73-10.10 [facility] Comment on above: Performed By: #### L AB980 ####[facility] (DEFAULT)[address] [place] [address] Basophils (Bld) [#/Vol] 0.04 10*3/uL 0.00 - 0.09 K/uL [facility] Basophils/100 WBC (Bld) 0.4 % [facility] Differential cell count method Nom (Bld) Electronic Differential [facility] Eosinophils (Bld) [#/Vol] 0.24 10*3/uL 0.00 - 0.48 K/uL [facility] Eosinophils/100 WBC (Bld) 2.2 % [facility] Erythrocyte distribution width (RBC) [Ratio] 12.4 % 10.9 - 14.3 % [facility] Hematocrit (Bld) [Volume fraction] 39.7 % 39.6 - 48.8 % [facility] Hemoglobin (Bld) [Mass/Vol] 13.1 g/dL Low 13.4 - 16.8 g/dL [facility] Immature granulocytes (Bld) [#/Vol] 0.04 10*3/uL NINF - 0.07 K/uL [facility] Immature granulocytes/100 WBC (Bld) 0.4 % [facility] Interpretation and review of laboratory results Abnormal [facility] Lymphocytes (Bld) [#/Vol] 1.68 10*3/uL 0.83 - 3.57 K/uL [facility] Lymphocytes/100 WBC (Bld) 15.3 % [facility] MCH (RBC) [Entitic mass] 28.0 pg 26.1 - 33.3 pg [facility] MCHC (RBC) [Mass/Vol] 33.0 g/dL 31.9 - 36.5 g/dL [facility] MCV (RBC) [Entitic vol] 84.8 fL 79.0 - 94.5 fL [facility] Monocytes (Bld) [#/Vol] 1.06 10*3/uL High 0.24 - 0.93 K/uL [facility] Monocytes/100 WBC (Bld) 9.6 % [facility] Neutrophils (Bld) [#/Vol] 7.94 10*3/uL High 1.57 - 6.19 K/uL [facility] Nucleated RBC/100 WBC (Bld) [Ratio] 0.0 % NINF [facility] Platelet mean volume (Bld) [Entitic vol] 8.7 fL 8.7 - 12.3 fL [facility] Platelets (Bld) [#/Vol] 303 10*3/uL 146 - 337 K/uL [facility] RBC (Bld) [#/Vol] 4.68 10*6/uL [facility] Segmented neutrophils/100 WBC (Bld) 72.1 % [facility] WBC (Bld) [#/Vol] 11.00 10*3/uL High 3.73 - 10 .10 K/uL [facility] CHEM 7 (LYTES,BUN,CREA,GLUC) on 08-04-2022 Anion gap [Moles/Vol] 13 mmol/L Normal 7-17 [facility] Comment on above: Performed By: #### C HM7, IPB, MGO, CA ####[facility] (DEFAULT)[address] [place] [address] Chloride [Moles/Vol] 102 mmol/L Normal 98-108 [facility] Comment on above: Performed By: #### C HM7, IPB, MGO, CA ####[facility] (DEFAULT)[address] [place] [address] CO2 [Moles/Vol] 25 mmol/L Normal 21-31 [facility] Comment on above: Performed By: #### C HM7, IPB, MGO, CA ####U [facility] (DEFAULT)[address] [place] [address] Creatinine [Mass/Vol] 0.69 mg/dL Low 0.70-1.30 [facility] Comment on above: Performed By: #### C HM7, IPB, MGO, CA ####[facility] (DEFAULT)[address] [place] [address] eGFR, CKD-EPI, Male > Normal >=60 [facility] Comment on above: Result Comment: Repo rted eGFR is based on the CKD-EPI 2020 equation using creatinine, age, and sex. Performed By: #### C HM7, IPB, MGO, CA ####Ena [facility] (DEFAULT)[address] [place] [address] Glucose [Mass/Vol] 114 mg/dL High 70-99 [facility] Comment on above: Performed By: #### C HM7, IPB, MGO, CA ####U [facility] (DEFAULT)[address] [place] [address] Osmolality [Osmolality] 287 mosm/kg Normal 278-305 [facility] Comment on above: Performed By: #### C HM7, IPB, MGO, CA ####[facility] (DEFAULT)[address] [place] [address] Potassium [Moles/Vol] 4.1 mmol/L Normal 3.5-5.0 [facility] Comment on above: Performed By: #### C DAYANA DELACRUZ MGO, CA ####[facility] (DEFAULT)[address] [place] [address] Sodium [Moles/Vol] 136 mmol/L Normal 135-145 [facility] Comment on above: Performed By: #### DAYANA VALDERRAMA MGO, CA ####[facility] (DEFAULT)[address] [facility] [place] [address] Urea nitrogen [Mass/Vol] 14 mg/dL Normal 7-25 [facility] Comment on above: Performed By: #### DAYANA VALDERRAMA MGO, CA ####[facility] (DEFAULT)[address] [facility] [place] [address] Urea nitrogen/Creatinine [Mass ratio] 20 mg/mg Normal [facility] Comment on above: Performed By: #### DAYANA VALDERRAMA MGO, CA ####[facility] (DEFAULT)[address] [facility] [place] [address] Anion gap [Moles/Vol] 13 mmol/L 7 - 17 mmol/L [facility] Chloride [Moles/Vol] 102 mmol/L 98 - 10 8 mmol/L [facility] CO2 [Moles/Vol] 25 mmol/L 21 - 31 mmol/L [facility] Creatinine [Mass/Vol] 0.69 mg/dL Low 0.70 - 1.30 mg/dL [facility] GFR/1.73 sq M.predicted CKD-EPI (S/P/Bld) [Vol rate/Area] - PINF [facility] Comment on above: Reported eGFR is bas ed on the CKD-EPI 2020 equation using creatinine, age, and sex. Glucose [Mass/Vol] 114 mg/dL High 70 - 99 mg/dL [facility] Interpretation and review of laboratory results Abnormal [facility] Osmolality Calc [Osmolality] 287 [facility] Potassium [Moles/Vol] 4.1 mmol/L 3.5 - 5.0 mmol/L [facility] Sodium [Moles/Vol] 136 mmol/L 135 - 145 mmol/L [facility] Urea nitrogen [Mass/Vol] 14 mg/dL 7 - 25 mg/dL [facility] Urea nitrogen/Creatinine [Mass ratio] 20 mg/mg [facility] MAGNESIUMon 08-04-2022 Magnesium [Mass/Vol] 1.9 mg/dL Normal 1.6-2.6 [facility] Comment on above: Performed By: #### C HM7, IPB, MGO, CA ####[facility] (DEFAULT)[address] [place] [address] Magnesium [Mass/Vol] 1.9 mg/dL 1.6 - 2 .6 mg/dL [facility] No Panel Informationon 08-04 Interpretation and review of laboratory results Normal [facility] PHOSPHATE, INORGANICon 08-04 Phosphorous 3.7 mg/dL Normal 2.2-4.6 [facility] Comment on above: Performed By: #### C HM7, IPB, MGO, CA ####[facility] (DEFAULT)[address] [facility] [place] [address] Phosphate [Mass/Vol] 3.7 mg/dL 2.2 - 4 .6 mg/dL [facility] CALCIUMon 08-03-2022 Calcium [Mass/Vol] 8.7 mg/dL Normal 8.6-10.5 [facility] Comment on above: Performed By: #### C HM7, CA, MGO, IPB ####[facility] (DEFAULT)[address] [facility] [place] [address] Calcium [Mass/Vol] 8.7 mg/dL 8.6 - 10. 5 mg/dL [facility] CBC AND ELECTRONIC DIFFon Basophils (Bld) [#/Vol] 0.05 10*3/uL Normal 0.00-0.09 [facility] Comment on above: Performed By: #### L AB980 ####[facility] (DEFAULT)[address] [facility] [place] [address] Basophils/100 WBC (Bld) 0.4 % Normal [facility] Comment on above: Performed By: #### L AB980 ####[facility] (DEFAULT)[address] [facility] [place] [address] DIFF STATUS Electronic Differential Normal [facility] Comment on above: Performed By: #### L AB980 ####[facility] (DEFAULT)[address] [facility] [place] [address] Eosinophils (Bld) [#/Vol] 0.19 10*3/uL Normal 0.00-0.48 [facility] Comment on above: Performed By: #### L AB980 ####[facility] (DEFAULT)[address] [facility] [place] [address] Eosinophils/100 WBC (Bld) 1.7 % Normal [facility] Comment on above: Performed By: #### L AB980 ####[facility] (DEFAULT)[address] [facility] [place] [address] Hematocrit (Bld) [Volume fraction] 38.4 % Low 39.6-48.8 [facility] Comment on above: Performed By: #### L AB980 ####[facility] (DEFAULT)[address] [facility] [place] [address] Hemoglobin (Bld) [Mass/Vol] 12.3 g/dL Low 13.4-16.8 [facility] Comment on above: Performed By: #### L AB980 ####[facility] (DEFAULT)[address] [facility] [place] [address] Immature Grans % 0.3 % Normal [facility] Comment on above: Performed By: #### L AB980 ####[facility] (DEFAULT)[address] [place] [address] Immature Grans Absolute 0.04 K/uL Normal <=0.07 [facility] Comment on above: Performed By: #### L AB980 ####[facility] (DEFAULT)[address] [facility] [place] [address] Lymphocytes (Bld) [#/Vol] 2.12 10*3/uL Normal 0.83-3.57 [facility] Comment on above: Performed By: #### L AB980 ####[facility] (DEFAULT)[address] [facility] [place] [address] Lymphocytes/100 WBC (Bld) 18.5 % Normal [facility] Comment on above: Performed By: #### L AB980 ####[facility] (DEFAULT)[address] [facility] [place] [address] MCV (RBC) [Entitic vol] 87.3 fL Normal 79.0-94.5 [facility] Comment on above: Performed By: #### L AB980 ####[facility] (DEFAULT)[address] [facility] [place] [address] Mean Cell Hgb 28.0 pg Normal 26.1-33.3 [facility] Comment on above: Performed By: #### L AB980 ####[facility] (DEFAULT)[address] [facility] [place] [address] Mean Cell Hgb Conc 32.0 g/dL Normal 31.9-36.5 [facility] Comment on above: Performed By: #### L AB980 ####[facility] (DEFAULT)[address] [facility] [place] [address] Monocytes (Bld) [#/Vol] 1.05 10*3/uL High 0.24-0.93 [facility] Comment on above: Performed By: #### L AB980 ####[facility] (DEFAULT)[address] [facility] [place] [address] Monocytes/100 WBC (Bld) 9.2 % Normal [facility] Comment on above: Performed By: #### L AB980 ####[facility] (DEFAULT)[address] [facility] [place] [address] Nucleated RBC 0.0 /100 WBC Normal <=0.2 [facility] Comment on above: Performed By: #### L [id number] ####[facility] (DEFAULT)[address] [facility] [place] [address] Platelet mean volume (Bld) [Entitic vol] 8.7 fL Normal 8.7-12.3 [facility] Comment on above: Performed By: #### L [id number] ####[facility] (DEFAULT)[address] [facility] [place] [address] Platelets (Bld) [#/Vol] 286 10*3/uL Normal 146-337 [facility] Comment on above: Performed By: #### L AB980 ####[facility] (DEFAULT)[address] [facility] [place] [address] RBC (Bld) [#/Vol] 4.40 10*6/uL Normal 4.38-5.83 [facility] Comment on above: Performed By: #### L AB980 ####[facility] (DEFAULT)[address] [facility] [place] [address] RBC Distribution 12.5 % Normal 10.9-14.3 [facility] Comment on above: Performed By: #### L AB980 ####[facility] (DEFAULT)[address] [facility] [place] [address] Segs + Bands Auto 69.9 % Normal [facility] Comment on above: Performed By: #### L [id number] ####[facility] (DEFAULT)[address] [address] [facility] [place] [address] Segs + Bands,Absolute Auto 8.02 K/uL High 1.57-6.19 [facility] Comment on above: Performed By: #### L AB980 ####[facility] (DEFAULT)[address] [place] [address] WBC (Bld) [#/Vol] 11.47 10*3/uL High 3.73-10.10 [facility] Comment on above: Performed By: #### L AB980 ####[facility] (DEFAULT)[address] [place] [address] Basophils (Bld) [#/Vol] 0.05 10*3/uL 0.00 - 0.09 K/uL [facility] Basophils/100 WBC (Bld) 0.4 % [facility] Differential cell count method Nom (Bld) Electronic Differential [facility] Eosinophils (Bld) [#/Vol] 0.19 10*3/uL 0.00 - 0.48 K/uL [facility] Eosinophils/100 WBC (Bld) 1.7 % [facility] Erythrocyte distribution width (RBC) [Ratio] 12.5 % 10.9 - 14.3 % [facility] Hematocrit (Bld) [Volume fraction] 38.4 % Low 39.6 - 48.8 % [facility] Hemoglobin (Bld) [Mass/Vol] 12.3 g/dL Low 13.4 - 16.8 g/dL [facility] Immature granulocytes (Bld) [#/Vol] 0.04 10*3/uL NINF - 0.07 K/uL [facility] Immature granulocytes/100 WBC (Bld) 0.3 % [facility] Interpretation and review of laboratory results Abnormal [facility] Lymphocytes (Bld) [#/Vol] 2.12 10*3/uL 0.83 - 3.57 K/uL [facility] Lymphocytes/100 WBC (Bld) 18.5 % [facility] MCH (RBC) [Entitic mass] 28.0 pg 26.1 - 33.3 pg [facility] MCHC (RBC) [Mass/Vol] 32.0 g/dL 31.9 - 36.5 g/dL [facility] MCV (RBC) [Entitic vol] 87.3 fL 79.0 - 94.5 fL [facility] Monocytes (Bld) [#/Vol] 1.05 10*3/uL High 0.24 - 0.93 K/uL [facility] Monocytes/100 WBC (Bld) 9.2 % [facility] Neutrophils (Bld) [#/Vol] 8.02 10*3/uL High 1.57 - 6.19 K/uL [facility] Nucleated RBC/100 WBC (Bld) [Ratio] 0.0 % [facility] Platelet mean volume (Bld) [Entitic vol] 8.7 fL 8.7 - 12.3 fL [facility] Platelets (Bld) [#/Vol] 286 10*3/uL 146 - 337 K/uL [facility] RBC (Bld) [#/Vol] 4.40 10*6/uL [facility] Segmented neutrophils/100 WBC (Bld) 69.9 % [facility] WBC (Bld) [#/Vol] 11.47 10*3/uL High 3.73 - 10 .10 K/uL [facility] CHEM 7 (LYTES,BUN,CREA,GLUC) on 08-03-2022 Anion gap [Moles/Vol] 14 mmol/L Normal 7-17 [facility] Comment on above: Performed By: #### C HM7, CA, MGO, IPB ####[facility] (DEFAULT)[address] [place] [address] Chloride [Moles/Vol] 103 mmol/L Normal 98-108 [facility] Comment on above: Performed By: #### C HM7, CA, MGO, IPB ####[facility] (DEFAULT)[address] [place] [address] CO2 [Moles/Vol] 22 mmol/L Normal 21-31 [facility] Comment on above: Performed By: #### C HM7, CA, MGO, IPB ####[facility] (DEFAULT)[address] [place] [address] Creatinine [Mass/Vol] 0.57 mg/dL Low 0.70-1.30 [facility] Comment on above: Performed By: #### C HM7, CA, MGO, IPB ####[facility] (DEFAULT)[address] [place] [address] eGFR, CKD-EPI, Male > Normal >=60 [facility] Comment on above: Result Comment: Repo rted eGFR is based on the CKD-EPI 2020 equation using creatinine, age, and sex. Performed By: #### C HM7, CA, MGO, IPB ####[facility] (DEFAULT)[address] [facility] [place] [address] Glucose [Mass/Vol] 99 mg/dL Normal 70-99 [facility] Comment on above: Performed By: #### C HM7, CA, MGO, IPB ####[facility] (DEFAULT)[address] [place] [address] Osmolality [Osmolality] 285 mosm/kg Normal 278-305 [facility] Comment on above: Performed By: #### C HM7, CA, MGO, IPB ####[facility] (DEFAULT)[address] [place] [address] Potassium [Moles/Vol] 4.2 mmol/L Normal 3.5-5.0 [facility] Comment on above: Performed By: #### C HM7, CA, MGO, IPB ####[facility] (DEFAULT)[address] [place] [address] Sodium [Moles/Vol] 135 mmol/L Normal 135-145 [facility] Comment on above: Performed By: #### C HM7, CA, MGO, IPB ####[facility] (DEFAULT)[address] [place] [address] Urea nitrogen [Mass/Vol] 15 mg/dL Normal 7-25 [facility] Comment on above: Performed By: #### C JAYME, CA, MGO, DOMONIQUEB ####[facility] (DEFAULT)[address] [place] [address] Urea nitrogen/Creatinine [Mass ratio] 26 mg/mg Normal [facility] Comment on above: Performed By: #### C HM7, CA, MGO, IPB ####U [facility] (DEFAULT)[address] [place] [address] Anion gap [Moles/Vol] 14 mmol/L 7 - 17 mmol/L [facility] Chloride [Moles/Vol] 103 mmol/L 98 - 10 8 mmol/L [facility] CO2 [Moles/Vol] 22 mmol/L 21 - 31 mmol/L [facility] Creatinine [Mass/Vol] 0.57 mg/dL Low 0.70 - 1.30 mg/dL [facility] GFR/1.73 sq M.predicted CKD-EPI (S/P/Bld) [Vol rate/Area] - PINF [facility] Comment on above: Reported eGFR is bas ed on the CKD-EPI 2020 equation using creatinine, age, and sex. Glucose [Mass/Vol] 99 mg/dL 70 - 99 mg/dL [facility] Interpretation and review of laboratory results Abnormal [facility] Osmolality Calc [Osmolality] 285 [facility] Potassium [Moles/Vol] 4.2 mmol/L 3.5 - 5.0 mmol/L [facility] Sodium [Moles/Vol] 135 mmol/L 135 - 145 mmol/L [facility] Urea nitrogen [Mass/Vol] 15 mg/dL 7 - 25 mg/dL [facility] Urea nitrogen/Creatinine [Mass ratio] 26 mg/mg [facility] MAGNESIUMon 08-03-2022 Magnesium [Mass/Vol] 1.9 mg/dL Normal 1.6-2.6 [facility] Comment on above: Performed By: #### C HM7, CA, MGO, IPB ####[facility] (DEFAULT)[address] [facility] [place] [address] Magnesium [Mass/Vol] 1.9 mg/dL 1.6 - 2 .6 mg/dL [facility] No Panel Informationon 08-03 Interpretation and review of laboratory results Normal [facility] PHOSPHATE, INORGANICon 08-03 Phosphorous 3.2 mg/dL Normal 2.2-4.6 [facility] Comment on above: Performed By: #### C HM7, CA, MGO, IPB ####[facility] (DEFAULT)[address] [facility] [place] [address] Phosphate [Mass/Vol] 3.2 mg/dL 2.2 - 4 .6 mg/dL [facility] CALCIUMon 08-02-2022 Calcium [Mass/Vol] 8.8 mg/dL Normal 8.6-10.5 [facility] Comment on above: Performed By: #### M GO, IPB, CHM7, CA ####[facility] (DEFAULT)[address] [facility] [place] [address] Calcium [Mass/Vol] 8.8 mg/dL 8.6 - 10. 5 mg/dL [facility] CBC AND ELECTRONIC DIFFon Abs Baso Auto < Normal 0.00-0.09 [facility] Comment on above: Performed By: #### L AB980 ####[facility] (DEFAULT)[address] [facility] [place] [address] Basophils/100 WBC (Bld) 0.3 % Normal [facility] Comment on above: Performed By: #### L AB980 ####[facility] (DEFAULT)[address] [facility] [place] [address] DIFF STATUS Electronic Differential Normal [facility] Comment on above: Performed By: #### L AB980 ####[facility] (DEFAULT)[address] [facility] [place] [address] Eosinophils (Bld) [#/Vol] 0.09 10*3/uL Normal 0.00-0.48 [facility] Comment on above: Performed By: #### L AB980 ####[facility] (DEFAULT)[address] [place] [address] Eosinophils/100 WBC (Bld) 0.8 % Normal [facility] Comment on above: Performed By: #### L AB980 ####[facility] (DEFAULT)[address] [facility] [place] [address] Hematocrit (Bld) [Volume fraction] 38.6 % Low 39.6-48.8 [facility] Comment on above: Performed By: #### L AB980 ####[facility] (DEFAULT)[address] [facility] [place] [address] Hemoglobin (Bld) [Mass/Vol] 12.9 g/dL Low 13.4-16.8 [facility] Comment on above: Performed By: #### L AB980 ####[facility] (DEFAULT)[address] [place] [address], [place] [address] Immature Grans % 0.4 % Normal [facility] Comment on above: Performed By: #### L AB980 ####[facility] (DEFAULT)[address] [facility] [place] [address] Immature Grans Absolute 0.04 K/uL Normal <=0.07 [facility] Comment on above: Performed By: #### L AB980 ####[facility] (DEFAULT)[address] [facility] [place] [address] Lymphocytes (Bld) [#/Vol] 1.52 10*3/uL Normal 0.83-3.57 [facility] Comment on above: Performed By: #### L AB980 ####[facility] (DEFAULT)[address] [facility] [place] [address] Lymphocytes/100 WBC (Bld) 13.3 % Normal [facility] Comment on above: Performed By: #### L AB980 ####[facility] (DEFAULT)[address] [facility] [place] [address] MCV (RBC) [Entitic vol] 85.8 fL Normal 79.0-94.5 [facility] Comment on above: Performed By: #### L AB980 ####[facility] (DEFAULT)[address] [facility] [place] [address] Mean Cell Hgb 28.7 pg Normal 26.1-33.3 [facility] Comment on above: Performed By: #### L AB980 ####[facility] (DEFAULT)[address] [facility] [place] [address] Mean Cell Hgb Conc 33.4 g/dL Normal 31.9-36.5 [facility] Comment on above: Performed By: #### L AB980 ####[facility] (DEFAULT)[address] [facility] [place] [address] Monocytes (Bld) [#/Vol] 1.10 10*3/uL High 0.24-0.93 [facility] Comment on above: Performed By: #### L AB980 ####[facility] (DEFAULT)[address] [facility] [place] [address] Monocytes/100 WBC (Bld) 9.7 % Normal [facility] Comment on above: Performed By: #### L AB980 ####[facility] (DEFAULT)[address] [facility] [place] [address] Nucleated RBC 0.0 /100 WBC Normal <=0.2 [facility] Comment on above: Performed By: #### L AB980 ####[facility] (DEFAULT)[address] [facility] [place] [address] Platelet mean volume (Bld) [Entitic vol] 8.9 fL Normal 8.7-12.3 [facility] Comment on above: Performed By: #### L AB980 ####[facility] (DEFAULT)[address] [facility] [place] [address] Platelets (Bld) [#/Vol] 319 10*3/uL Normal 146-337 [facility] Comment on above: Performed By: #### L AB980 ####[facility] (DEFAULT)[address] [facility] [place] [address] RBC (Bld) [#/Vol] 4.50 10*6/uL Normal 4.38-5.83 [facility] Comment on above: Performed By: #### L AB980 ####[facility] (DEFAULT)[address] [facility] [place] [address] RBC Distribution 12.3 % Normal 10.9-14.3 [facility] Comment on above: Performed By: #### L AB980 ####[facility] (DEFAULT)[address] [facility] [place] [address] Segs + Bands Auto 75.5 % Normal [facility] Comment on above: Performed By: #### L AB980 ####[facility] (DEFAULT)[address] [facility] [place] [address] Segs + Bands,Absolute Auto 8.61 K/uL High 1.57-6.19 [facility] Comment on above: Performed By: #### L AB980 ####[facility] (DEFAULT)[address] [facility] [place] [address] WBC (Bld) [#/Vol] 11.39 10*3/uL High 3.73-10.10 [facility] Comment on above: Performed By: #### L AB980 ####[facility] (DEFAULT)[address] [facility] [place] [address] Basophils (Bld) [#/Vol] K/uL 0.00 - 0.09 K/uL [facility] Basophils/100 WBC (Bld) 0.3 % [facility] Differential cell count method Nom (Bld) Electronic Differential [facility] Eosinophils (Bld) [#/Vol] 0.09 10*3/uL 0.00 - 0.48 K/uL [facility] Eosinophils/100 WBC (Bld) 0.8 % [facility] Erythrocyte distribution width (RBC) [Ratio] 12.3 % 10.9 - 14.3 % [facility] Hematocrit (Bld) [Volume fraction] 38.6 % Low 39.6 - 48.8 % [facility] Hemoglobin (Bld) [Mass/Vol] 12.9 g/dL Low 13.4 - 16.8 g/dL [facility] Immature granulocytes (Bld) [#/Vol] 0.04 10*3/uL NINF - 0.07 K/uL [facility] Immature granulocytes/100 WBC (Bld) 0.4 % [facility] Interpretation and review of laboratory results Abnormal [facility] Lymphocytes (Bld) [#/Vol] 1.52 10*3/uL 0.83 - 3.57 K/uL [facility] Lymphocytes/100 WBC (Bld) 13.3 % [facility] MCH (RBC) [Entitic mass] 28.7 pg 26.1 - 33.3 pg [facility] MCHC (RBC) [Mass/Vol] 33.4 g/dL 31.9 - 36.5 g/dL [facility] MCV (RBC) [Entitic vol] 85.8 fL 79.0 - 94.5 fL [facility] Monocytes (Bld) [#/Vol] 1.10 10*3/uL High 0.24 - 0.93 K/uL [facility] Monocytes/100 WBC (Bld) 9.7 % [facility] Neutrophils (Bld) [#/Vol] 8.61 10*3/uL High 1.57 - 6.19 K/uL [facility] Nucleated RBC/100 WBC (Bld) [Ratio] 0.0 % [facility] Platelet mean volume (Bld) [Entitic vol] 8.9 fL 8.7 - 12.3 fL [facility] Platelets (Bld) [#/Vol] 319 10*3/uL 146 - 337 K/uL [facility] RBC (Bld) [#/Vol] 4.50 10*6/uL [facility] Segmented neutrophils/100 WBC (Bld) 75.5 % [facility] WBC (Bld) [#/Vol] 11.39 10*3/uL High 3.73 - 10 .10 K/uL [facility] CHEM 7 (LYTES,BUN,CREA,GLUC) on 08-02-2022 Anion gap [Moles/Vol] 13 mmol/L Normal - [facility] Comment on above: Performed By: #### DAYANA PRATT, CHM7, CA ####[facility] (DEFAULT)[address] [place] [address] Chloride [Moles/Vol] 105 mmol/L Normal 98-108 [facility] Comment on above: Performed By: #### DAYANA PRATT, CHM7, CA ####[facility] (DEFAULT)[address] [place] [address] CO2 [Moles/Vol] 23 mmol/L Normal 21-31 [facility] Comment on above: Performed By: #### DAYANA PRATT, CHM7, CA ####[facility] (DEFAULT)[address] [place] [address] Creatinine [Mass/Vol] 0.62 mg/dL Low 0.70-1.30 [facility] Comment on above: Performed By: #### DOMONIQUE PRATTB, CHM7, CA ####[facility] (DEFAULT)[address] [place] [address] eGFR, CKD-EPI, Male > Normal >=60 [facility] Comment on above: Result Comment: Repo rted eGFR is based on the CKD-EPI 2020 equation using creatinine, age, and sex. Performed By: #### M GO IPB, CHM7, CA ####[facility] (DEFAULT)[address] [place] [address] Glucose [Mass/Vol] 112 mg/dL High 70-99 [facility] Comment on above: Performed By: #### M GO IPB, CHM7, CA ####[facility] (DEFAULT)[address] [place] [address] Osmolality [Osmolality] 289 mosm/kg Normal 278-305 [facility] Comment on above: Performed By: #### M GO IPB, CHM7, CA ####[facility] (DEFAULT)[address] [place] [address] Potassium [Moles/Vol] 4.2 mmol/L Normal 3.5-5.0 [facility] Comment on above: Performed By: #### M GO IPB, CHM7, CA ####[facility] (DEFAULT)[address] [place] [address] Sodium [Moles/Vol] 137 mmol/L Normal 135-145 [facility] Comment on above: Performed By: #### M GO IPB, CHM7, CA ####[facility] (DEFAULT)[address] [place] [address] Urea nitrogen [Mass/Vol] 14 mg/dL Normal 7-25 [facility] Comment on above: Performed By: #### M GO, IPB, CHM7, CA ####[facility] (DEFAULT)[address] [place] [address] Urea nitrogen/Creatinine [Mass ratio] 23 mg/mg Normal [facility] Comment on above: Performed By: #### M GO, IPB, CHM7, CA ####[facility] (DEFAULT)[address] [place] [address] Anion gap [Moles/Vol] 13 mmol/L 7 - 17 mmol/L [facility] Chloride [Moles/Vol] 105 mmol/L 98 - 10 8 mmol/L [facility] CO2 [Moles/Vol] 23 mmol/L 21 - 31 mmol/L [facility] Creatinine [Mass/Vol] 0.62 mg/dL Low 0.70 - 1.30 mg/dL [facility] GFR/1.73 sq M.predicted CKD-EPI (S/P/Bld) [Vol rate/Area] - PINF [facility] Comment on above: Reported eGFR is bas ed on the CKD-EPI 2020 equation using creatinine, age, and sex. Glucose [Mass/Vol] 112 mg/dL High 70 - 99 mg/dL [facility] Interpretation and review of laboratory results Abnormal [facility] Osmolality Calc [Osmolality] 289 [facility] Potassium [Moles/Vol] 4.2 mmol/L 3.5 - 5.0 mmol/L [facility] Sodium [Moles/Vol] 137 mmol/L 135 - 145 mmol/L [facility] Urea nitrogen [Mass/Vol] 14 mg/dL 7 - 25 mg/dL [facility] Urea nitrogen/Creatinine [Mass ratio] 23 mg/mg [facility] MAGNESIUMon 08-02-2022 Magnesium [Mass/Vol] 1.8 mg/dL Normal 1.6-2.6 [facility] Comment on above: Performed By: #### M DAYANA PALUMBO, DIMA, CA ####[facility] (DEFAULT)[address] [place] [address] Magnesium [Mass/Vol] 1.8 mg/dL 1.6 - 2 .6 mg/dL [facility] No Panel Informationon 08-02 Interpretation and review of laboratory results Normal [facility] PHOSPHATE, INORGANICon 08-02 Phosphorous 4.1 mg/dL Normal 2.2-4.6 [facility] Comment on above: Performed By: #### M DAYANA PALUMBO, DIMA, CA ####[facility] (DEFAULT)[address] [place] [address] Phosphate [Mass/Vol] 4.1 mg/dL 2.2 - 4 .6 mg/dL [facility] CALCIUMon 08-01-2022 Calcium [Mass/Vol] 9.5 mg/dL Normal 8.6-10.5 [facility] Comment on above: Performed By: #### M GO, CA, IPB, CHM7 ####[facility] (DEFAULT)[address] [place] [address] Calcium [Mass/Vol] 9.5 mg/dL 8.6 - 10. 5 mg/dL [facility] CBC AND ELECTRONIC DIFFon Abs Baso Auto < Normal 0.00-0.09 [facility] Comment on above: Performed By: #### L AB980 ####[facility] (DEFAULT)[address] [facility] [place] [address] Abs Eos Auto < Normal 0.00-0.48 [facility] Comment on above: Performed By: #### L AB980 ####[facility] (DEFAULT)[address] [facility] [place] [address] Basophils/100 WBC (Bld) 0.2 % Normal [facility] Comment on above: Performed By: #### L AB980 ####[facility] (DEFAULT)[address] [facility] [place] [address] DIFF STATUS Electronic Differential Normal [facility] Comment on above: Performed By: #### L AB980 ####[facility] (DEFAULT)[address] [place] [address], [place] [address] Eosinophils/100 WBC (Bld) 0.1 % Normal [facility] Comment on above: Performed By: #### L AB980 ####[facility] (DEFAULT)[address] [facility] [place] [address] Hematocrit (Bld) [Volume fraction] 42.6 % Normal 39.6-48.8 [facility] Comment on above: Performed By: #### L AB980 ####[facility] (DEFAULT)[address] [facility] [place] [address] Hemoglobin (Bld) [Mass/Vol] 14.2 g/dL Normal 13.4-16.8 [facility] Comment on above: Performed By: #### L AB980 ####[facility] (DEFAULT)[address] [facility] [place] [address] Immature Grans % 0.3 % Normal [facility] Comment on above: Performed By: #### L AB980 ####[facility] (DEFAULT)[address] [facility] [place] [address] Immature Grans Absolute 0.05 K/uL Normal <=0.07 [facility] Comment on above: Performed By: #### L AB980 ####[facility] (DEFAULT)[address] [place] [address], [place] [address] Lymphocytes (Bld) [#/Vol] 1.14 10*3/uL Normal 0.83-3.57 [facility] Comment on above: Performed By: #### L AB980 ####[facility] (DEFAULT)[address] [facility] [place] [address] Lymphocytes/100 WBC (Bld) 7.9 % Normal [facility] Comment on above: Performed By: #### L AB980 ####[facility] (DEFAULT)[address] [place] [address], [place] [address] MCV (RBC) [Entitic vol] 85.4 fL Normal 79.0-94.5 [facility] Comment on above: Performed By: #### L AB980 ####[facility] (DEFAULT)[address] [facility] [place] [address] Mean Cell Hgb 28.5 pg Normal 26.1-33.3 [facility] Comment on above: Performed By: #### L AB980 ####[facility] (DEFAULT)[address] [facility] [place] [address] Mean Cell Hgb Conc 33.3 g/dL Normal 31.9-36.5 [facility] Comment on above: Performed By: #### L AB980 ####[facility] (DEFAULT)[address] [facility] [place] [address] Monocytes (Bld) [#/Vol] 0.56 10*3/uL Normal 0.24-0.93 [facility] Comment on above: Performed By: #### L AB980 ####[facility] (DEFAULT)[address] [facility] [place] [address] Monocytes/100 WBC (Bld) 3.9 % Normal [facility] Comment on above: Performed By: #### L AB980 ####[facility] (DEFAULT)[address] [facility] [place] [address] Nucleated RBC 0.0 /100 WBC Normal <=0.2 [facility] Comment on above: Performed By: #### L AB980 ####[facility] (DEFAULT)[address] [facility] [place] [address] Platelet mean volume (Bld) [Entitic vol] 8.8 fL Normal 8.7-12.3 [facility] Comment on above: Performed By: #### L AB980 ####[facility] (DEFAULT)[address] [facility] [place] [address] Platelets (Bld) [#/Vol] 346 10*3/uL High 146-337 [facility] Comment on above: Performed By: #### L AB980 ####[facility] (DEFAULT)[address] [facility] [place] [address] RBC (Bld) [#/Vol] 4.99 10*6/uL Normal 4.38-5.83 [facility] Comment on above: Performed By: #### L AB980 ####[facility] (DEFAULT)[address] [facility] [place] [address] RBC Distribution 12.5 % Normal 10.9-14.3 [facility] Comment on above: Performed By: #### L AB980 ####[facility] (DEFAULT)[address] [facility] [place] [address] Segs + Bands Auto 87.6 % Normal [facility] Comment on above: Performed By: #### L AB980 ####[facility] (DEFAULT)[address] [facility] [place] [address] Segs + Bands,Absolute Auto 12.69 K/uL High 1.57-6.19 [facility] Comment on above: Performed By: #### L AB980 ####[facility] (DEFAULT)[address] [facility] [place] [address] WBC (Bld) [#/Vol] 14.48 10*3/uL High 3.73-10.10 [facility] Comment on above: Performed By: #### L AB980 ####[facility] (DEFAULT)[address] [facility] [place] [address] Basophils (Bld) [#/Vol] K/uL 0.00 - 0.09 K/uL [facility] Basophils/100 WBC (Bld) 0.2 % [facility] Differential cell count method Nom (Bld) Electronic Differential [facility] Eosinophils (Bld) [#/Vol] K/uL 0.00 - 0.48 K/uL [facility] Eosinophils/100 WBC (Bld) 0.1 % [facility] Erythrocyte distribution width (RBC) [Ratio] 12.5 % 10.9 - 14.3 % [facility] Hematocrit (Bld) [Volume fraction] 42.6 % 39.6 - 48.8 % [facility] Hemoglobin (Bld) [Mass/Vol] 14.2 g/dL 13.4 - 16.8 g/dL [facility] Immature granulocytes (Bld) [#/Vol] 0.05 10*3/uL NINF - 0.07 K/uL [facility] Immature granulocytes/100 WBC (Bld) 0.3 % [facility] Interpretation and review of laboratory results Abnormal [facility] Lymphocytes (Bld) [#/Vol] 1.14 10*3/uL 0.83 - 3.57 K/uL [facility] Lymphocytes/100 WBC (Bld) 7.9 % [facility] MCH (RBC) [Entitic mass] 28.5 pg 26.1 - 33.3 pg [facility] MCHC (RBC) [Mass/Vol] 33.3 g/dL 31.9 - 36.5 g/dL [facility] MCV (RBC) [Entitic vol] 85.4 fL 79.0 - 94.5 fL [facility] Monocytes (Bld) [#/Vol] 0.56 10*3/uL 0.24 - 0.93 K/uL [facility] Monocytes/100 WBC (Bld) 3.9 % [facility] Neutrophils (Bld) [#/Vol] 12.69 10*3/uL High 1.57 - 6.19 K/uL [facility] Nucleated RBC/100 WBC (Bld) [Ratio] 0.0 % [facility] Platelet mean volume (Bld) [Entitic vol] 8.8 fL 8.7 - 12.3 fL [facility] Platelets (Bld) [#/Vol] 346 10*3/uL High 146 - 337 K/uL [facility] RBC (Bld) [#/Vol] 4.99 10*6/uL [facility] Segmented neutrophils/100 WBC (Bld) 87.6 % [facility] WBC (Bld) [#/Vol] 14.48 10*3/uL High 3.73 - 10 .10 K/uL [facility] Basophils (Bld) [#/Vol] 0.05 10*3/uL Normal 0.00-0.09 [facility] Comment on above: Performed By: #### L [id number] ####[facility] (DEFAULT)[address] [place] [address] Basophils/100 WBC (Bld) 0.6 % Normal [facility] Comment on above: Performed By: #### L [id number] ####[facility] (DEFAULT)[address] [facility] [place] [address] DIFF STATUS Electronic Differential Normal [facility] Comment on above: Performed By: #### L [id number] ####[facility] (DEFAULT)[address] [facility] [place] [address] Eosinophils (Bld) [#/Vol] 0.24 10*3/uL Normal 0.00-0.48 [facility] Comment on above: Performed By: #### L [id number] ####[facility] (DEFAULT)[address] [facility] [place] [address] Eosinophils/100 WBC (Bld) 2.9 % Normal [facility] Comment on above: Performed By: #### L [id number] ####[facility] (DEFAULT)[address] [facility] [place] [address] Hematocrit (Bld) [Volume fraction] 43.9 % Normal 39.6-48.8 [facility] Comment on above: Performed By: #### L [id number] ####[facility] (DEFAULT)[address] [facility] [place] [address] Hemoglobin (Bld) [Mass/Vol] 14.4 g/dL Normal 13.4-16.8 [facility] Comment on above: Performed By: #### L [id number] ####[facility] (DEFAULT)[address] [facility] [place] [address] Immature Grans % 0.2 % Normal [facility] Comment on above: Performed By: #### L [id number] ####[facility] (DEFAULT)[address] [facility] [place] [address] Immature Grans Absolute < Normal <=0.07 [facility] Comment on above: Performed By: #### L [id number] ####[facility] (DEFAULT)[address] [facility] [place] [address] Lymphocytes (Bld) [#/Vol] 1.80 10*3/uL Normal 0.83-3.57 [facility] Comment on above: Performed By: #### L [id number] ####[facility] (DEFAULT)[address] [facility] [place] [address] Lymphocytes/100 WBC (Bld) 21.7 % Normal [facility] Comment on above: Performed By: #### L [id number] ####[facility] (DEFAULT)[address] [facility] [place] [address] MCV (RBC) [Entitic vol] 86.2 fL Normal 79.0-94.5 [facility] Comment on above: Performed By: #### L [id number] ####[facility] (DEFAULT)[address] [facility] [place] [address] Mean Cell Hgb 28.3 pg Normal 26.1-33.3 [facility] Comment on above: Performed By: #### L AB980 ####[facility] (DEFAULT)[address] [facility] [place] [address] Mean Cell Hgb Conc 32.8 g/dL Normal 31.9-36.5 [facility] Comment on above: Performed By: #### L [id number] ####[facility] (DEFAULT)[address] [facility] [place] [address] Monocytes (Bld) [#/Vol] 0.56 10*3/uL Normal 0.24-0.93 [facility] Comment on above: Performed By: #### L [id number] ####[facility] (DEFAULT)[address] [facility] [place] [address] Monocytes/100 WBC (Bld) 6.8 % Normal [facility] Comment on above: Performed By: #### L [id number] ####[facility] (DEFAULT)[address] [facility] [place] [address] Nucleated RBC 0.0 /100 WBC Normal <=0.2 [facility] Comment on above: Performed By: #### L [id number] ####[facility] (DEFAULT)[address] [facility] [place] [address] Platelet mean volume (Bld) [Entitic vol] 8.8 fL Normal 8.7-12.3 [facility] Comment on above: Performed By: #### L [id number] ####[facility] (DEFAULT)[address] [place], [place] [address], [place] [address] Platelets (Bld) [#/Vol] 320 10*3/uL Normal 146-337 [facility] Comment on above: Performed By: #### L [id number] ####[facility] (DEFAULT)[address] [facility] [place] [address] RBC (Bld) [#/Vol] 5.09 10*6/uL Normal 4.38-5.83 [facility] Comment on above: Performed By: #### L [id number] ####[facility] (DEFAULT)[address] [facility] [place] [address] RBC Distribution 12.3 % Normal 10.9-14.3 [facility] Comment on above: Performed By: #### L [id number] ####[facility] (DEFAULT)[address] [facility] [place] [address] Segs + Bands Auto 67.8 % Normal [facility] Comment on above: Performed By: #### L [id number] ####[facility] (DEFAULT)[address] [facility] [place] [address] Segs + Bands,Absolute Auto 5.62 K/uL Normal 1.57-6.19 [facility] Comment on above: Performed By: #### L [id number] ####[facility] (DEFAULT)[address] [place] [address] WBC (Bld) [#/Vol] 8.29 10*3/uL Normal 3.73-10.10 [facility] Comment on above: Performed By: #### L [id number] ####[facility] (DEFAULT)[address] [place] [address] Basophils (Bld) [#/Vol] 0.05 10*3/uL 0.00 - 0.09 K/uL [facility] Basophils/100 WBC (Bld) 0.6 % [facility] Differential cell count method Nom (Bld) Electronic Differential [facility] Eosinophils (Bld) [#/Vol] 0.24 10*3/uL 0.00 - 0.48 K/uL [facility] Eosinophils/100 WBC (Bld) 2.9 % [facility] Erythrocyte distribution width (RBC) [Ratio] 12.3 % 10.9 - 14.3 % [facility] Hematocrit (Bld) [Volume fraction] 43.9 % 39.6 - 48.8 % [facility] Hemoglobin (Bld) [Mass/Vol] 14.4 g/dL 13.4 - 16.8 g/dL [facility] Immature granulocytes (Bld) [#/Vol] K/uL NINF - 0.07 K/uL [facility] Immature granulocytes/100 WBC (Bld) 0.2 % [facility] Lymphocytes (Bld) [#/Vol] 1.80 10*3/uL 0.83 - 3.57 K/uL [facility] Lymphocytes/100 WBC (Bld) 21.7 % [facility] MCH (RBC) [Entitic mass] 28.3 pg 26.1 - 33.3 pg [facility] MCHC (RBC) [Mass/Vol] 32.8 g/dL 31.9 - 36.5 g/dL [facility] MCV (RBC) [Entitic vol] 86.2 fL 79.0 - 94.5 fL [facility] Monocytes (Bld) [#/Vol] 0.56 10*3/uL 0.24 - 0.93 K/uL [facility] Monocytes/100 WBC (Bld) 6.8 % [facility] Neutrophils (Bld) [#/Vol] 5.62 10*3/uL 1.57 - 6.19 K/uL [facility] Nucleated RBC/100 WBC (Bld) [Ratio] 0.0 % NINF [facility] Platelet mean volume (Bld) [Entitic vol] 8.8 fL 8.7 - 12.3 fL [facility] Platelets (Bld) [#/Vol] 320 10*3/uL 146 - 337 K/uL [facility] RBC (Bld) [#/Vol] 5.09 10*6/uL [facility] Segmented neutrophils/100 WBC (Bld) 67.8 % [facility] WBC (Bld) [#/Vol] 8.29 10*3/uL 3.73 - 10. 10 K/uL [facility] CHEM 7 (LYTES,BUN,CREA,GLUC) on 08-01-2022 Anion gap [Moles/Vol] 16 mmol/L Normal 7-17 [facility] Comment on above: Performed By: #### M GO, CA, IPB, CHM7 ####[facility] (DEFAULT)[address] [place] [address] Chloride [Moles/Vol] 102 mmol/L Normal 98-108 [facility] Comment on above: Performed By: #### M GO, CA, IPB, CHM7 ####[facility] (DEFAULT)[address] [place] [address] CO2 [Moles/Vol] 26 mmol/L Normal 21-31 [facility] Comment on above: Performed By: #### M GO, CA, IPB, CHM7 ####[facility] (DEFAULT)[address] [place] [address] Creatinine [Mass/Vol] 0.70 mg/dL Normal 0.70-1.30 [facility] Comment on above: Performed By: #### M LINWOOD CA, IPB, CHM7 ####[facility] (DEFAULT)[address] [place] [address] eGFR, CKD-EPI, Male > Normal >=60 [facility] Comment on above: Result Comment: Repo rted eGFR is based on the CKD-EPI 2020 equation using creatinine, age, and sex. Performed By: #### M GO CA, IPB, CHM7 ####Ena [facility] (DEFAULT)[address] [facility] [place] [address] Glucose [Mass/Vol] 130 mg/dL High 70-99 [facility] Comment on above: Performed By: #### Aneta PALUMBO CA, IPB, CHM7 ####Ena [facility] (DEFAULT)[address] [place] [address] Osmolality [Osmolality] 294 mosm/kg Normal 278-305 [facility] Comment on above: Performed By: #### Aneta PALUMBO CA, IPB, CHM7 ####U [facility] (DEFAULT)[address] [place] [address] Potassium [Moles/Vol] 4.5 mmol/L Normal 3.5-5.0 [facility] Comment on above: Performed By: #### Aneta GO CA, IPB, CHM7 ####U [facility] (DEFAULT)[address] [facility] [place] [address] Sodium [Moles/Vol] 139 mmol/L Normal 135-145 [facility] Comment on above: Performed By: #### M GO CA, IPB, CHM7 ####U [facility] (DEFAULT)[address] [facility] [place] [address] Urea nitrogen [Mass/Vol] 13 mg/dL Normal 7-25 [facility] Comment on above: Performed By: #### M CHRISTINA PALUMBO, IPB, CHM7 ####[facility] (DEFAULT)[address] [place] [address] Urea nitrogen/Creatinine [Mass ratio] 19 mg/mg Normal [facility] Comment on above: Performed By: #### M CHRISTINA PALUMBO, IPB, CHM7 ####[facility] (DEFAULT)[address] [place] [address] Anion gap [Moles/Vol] 16 mmol/L 7 - 17 [facility] Chloride [Moles/Vol] 102 mmol/L 98 - 10 8 mmol/L [facility] CO2 [Moles/Vol] 26 mmol/L 21 - 31 mmol/L [facility] Creatinine [Mass/Vol] 0.70 mg/dL 0.70 - 1.30 mg/dL [facility] GFR/1.73 sq M.predicted CKD-EPI (S/P/Bld) [Vol rate/Area] - [facility] Comment on above: Reported eGFR is bas ed on the CKD-EPI 2020 equation using creatinine, age, and sex. Glucose [Mass/Vol] 130 mg/dL High 70 - 99 mg/dL [facility] Osmolality Calc [Osmolality] 294 [facility] Potassium [Moles/Vol] 4.5 mmol/L 3.5 - 5.0 mmol/L [facility] Sodium [Moles/Vol] 139 mmol/L 135 - 145 mmol/L [facility] Urea nitrogen [Mass/Vol] 13 mg/dL 7 - 25 mg/dL [facility] Urea nitrogen/Creatinine [Mass ratio] 19 mg/mg [facility] Anion gap [Moles/Vol] 12 mmol/L Normal 7-17 [facility] Comment on above: Performed By: #### C HM7 ####[facility] (DEFAULT)[address] [place] [address] Chloride [Moles/Vol] 103 mmol/L Normal 98-108 [facility] Comment on above: Performed By: #### C HM7 ####[facility] (DEFAULT)[address] [facility] [place] [address] CO2 [Moles/Vol] 30 mmol/L Normal 21-31 [facility] Comment on above: Performed By: #### C HM7 ####[facility] (DEFAULT)[address] [facility] [place] [address] Creatinine [Mass/Vol] 0.84 mg/dL Normal 0.70-1.30 [facility] Comment on above: Performed By: #### C HM7 ####[facility] (DEFAULT)[address] [facility] [place] [address] eGFR, CKD-EPI, Male > Normal >=60 [facility] Comment on above: Result Comment: Repo rted eGFR is based on the CKD-EPI 2020 equation using creatinine, age, and sex. Performed By: #### C HM7 ####[facility] (DEFAULT)[address] [facility] [place] [address] Glucose [Mass/Vol] 97 mg/dL Normal 70-99 [facility] Comment on above: Performed By: #### C HM7 ####U [facility] (DEFAULT)[address] [facility] [place] [address] Osmolality [Osmolality] 296 mosm/kg Normal 278-305 [facility] Comment on above: Performed By: #### C HM7 ####[facility] (DEFAULT)[address] [facility] [place] [address] Potassium [Moles/Vol] 4.4 mmol/L Normal 3.5-5.0 [facility] Comment on above: Performed By: #### C HM7 ####[facility] (DEFAULT)[address] [facility] [place] [address] Sodium [Moles/Vol] 141 mmol/L Normal 135-145 [facility] Comment on above: Performed By: #### C HM7 ####[facility]na [facility] (DEFAULT)[address] [place] [address] Urea nitrogen [Mass/Vol] 15 mg/dL Normal 7-25 [facility] Comment on above: Performed By: #### C HM7 ####[facility] (DEFAULT)[address] [place] [address] Urea nitrogen/Creatinine [Mass ratio] 18 mg/mg Normal [facility] Comment on above: Performed By: #### C HM7 ####U [facility] (DEFAULT)[address] [place] [address] Anion gap [Moles/Vol] 12 mmol/L 7 - 17 mmol/L [facility] Chloride [Moles/Vol] 103 mmol/L 98 - 10 8 mmol/L [facility] CO2 [Moles/Vol] 30 mmol/L 21 - 31 mmol/L [facility] Creatinine [Mass/Vol] 0.84 mg/dL 0.70 - 1.30 mg/dL [facility] GFR/1.73 sq M.predicted CKD-EPI (S/P/Bld) [Vol rate/Area] - [facility] Comment on above: Reported eGFR is bas ed on the CKD-EPI 2020 equation using creatinine, age, and sex. Glucose [Mass/Vol] 97 mg/dL 70 - 99 mg/dL [facility] Osmolality Calc [Osmolality] 296 [facility] Potassium [Moles/Vol] 4.4 mmol/L 3.5 - 5.0 mmol/L [facility] Sodium [Moles/Vol] 141 mmol/L 135 - 145 mmol/L [facility] Urea nitrogen [Mass/Vol] 15 mg/dL 7 - 25 mg/dL [facility] Urea nitrogen/Creatinine [Mass ratio] 18 mg/mg [facility] CT HEAD WITHOUT CONTRASTon 0 08-01-2022 CT HEAD WITHOUT CONTRAST Normal [facility] CT Head WO contraston 2022 IMPRESSION: 1. Postoperative changes are seen following left-sided cranioplasty. Good reapproximation of the calvarium across the prior craniectomy defect. 2. Interval development of a subcentimeter oblong hyperdensity along the anterior margin of the chronic left MCA infarct, possibly a small volume of postoperative blood products. Recommend close attention on follow-up imaging. 3. No significant extra axial fluid collection adjacent to the cranioplasty. OLOGY EXAM: CT HEAD WITHOU T CONTRAST, 08/01/2022 12:45 PM COMPARISON: CT head dated July 30, 2022 CLINICAL INDICATIONS: 36 years Male postop eval; RELEVANT CLINICAL HISTORY: TECHNIQUE: A series of transaxial computerized tomographic images are obtained from base of skull to vertex without intravenous contrast. Axial whole-head and thin section posterior fossa slices are provided. Reformats: Sagittal and coronal. FINDINGS: Postoperative changes are seen following interval left-sided cranioplasty, the calvarium is a proximal aided well to the adjacent calvarium. There is a small amount of pneumocephalus adjacent to the cranium without significant scalp fluid collection. There is a small volume of air deep to the cranioplasty, but no significant extra axial fluid collections are seen adjacent to the cranioplasty. 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 The thrombosed aneurysm sac is again visualized on noncontrast CT but does not appear to have significantly changed from the prior study. 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 There is no interval loss of landon-white differentiation. There is a small oblong hyperdensity along the anterior aspect of the prior left MCA infarct which measures about 9 x 4 mm on series 6 image 45. This may be a small volume of post surgical hemorrhage. The artifact from [employer] preoperative planning acquisition on the prior head CT obscures this area. Stable size and configuration of the ventricles, with ex vacuo dilatation of the left lateral ventricle. Posterior fossa remains unremarkable. Paranasal sinuses mastoid air cells are clear without fluid levels. Orbits are unremarkable. RADIOLOGY Yovany Rust MD - 08/01/2022 EXAM: CT HEAD WITHOUT CONTRAST, 08/01/2022 12:45 PM COMPARISON: CT head dated July 30, 2022 CLINICAL INDICATIONS: 36 years Male postop eval; RELEVANT CLINICAL HISTORY: TECHNIQUE: A series of transaxial computerized tomographic images are obtained from base of skull to vertex without intravenous contrast. Axial whole-head and thin section posterior fossa slices are provided. Reformats: Sagittal and coronal. FINDINGS: Postoperative changes are seen following interval left-sided cranioplasty, the calvarium is a proximal aided well to the adjacent calvarium. There is a small amount of pneumocephalus adjacent to the cranium without significant scalp fluid collection. There is a small volume of air deep to the cranioplasty, but no significant extra axial fluid collections are seen adjacent to the cranioplasty. 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 The thrombosed aneurysm sac is again visualized on noncontrast CT but does not appear to have significantly changed from the prior study. 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 There is no interval loss of landon-white differentiation. There is a small oblong hyperdensity along the anterior aspect of the prior left MCA infarct which measures about 9 x 4 mm on series 6 image 45. This may be a small volume of post surgical hemorrhage. The artifact from [employer] preoperative planning acquisition on the prior head CT obscures this area. Stable size and configuration of the ventricles, with ex vacuo dilatation of the left lateral ventricle. Posterior fossa remains unremarkable. Paranasal sinuses mastoid air cells are clear without fluid levels. Orbits are unremarkable. IMPRESSION IMPRESSION: 1. Postoperative changes are seen following left-sided cranioplasty. Good reapproximation of the calvarium across the prior craniectomy defect. 2. Interval development of a subcentimeter oblong hyperdensity along the anterior margin of the chronic left MCA infarct, possibly a small volume of postoperative blood products. Recommend close attention on follow-up imaging. 3. No significant extra axial fluid collection adjacent to the cranioplasty. [facility] Radiology Study observation (narrative) [facility] CT Head WO contrastOrdered B y: Yovany Rust on 08-01-2022 [facility] Work Phone: GLUCOSE POCon 08-01-2022 Glucose [Mass/Vol] 94 mg/dL 70 - 99 mg/dL [facility] POC Sample Type VENO [place] Test performed at ad dress of the patient encounter. [facility] MAGNESIUMon 08-01-2022 Magnesium [Mass/Vol] 1.9 mg/dL Normal 1.6-2.6 [facility] Comment on above: Performed By: #### M CHRISTINA PALUMBO, DAYANA, CHM7 ####[facility] (DEFAULT)[address] [facility] [place] [address] Magnesium [Mass/Vol] 1.9 mg/dL 1.6 - 2 .6 mg/dL [facility] No Panel Informationon 08-01 Interpretation and review of laboratory results Abnormal [facility] Interpretation and review of laboratory results Normal [facility] PHOSPHATE, INORGANICon 08-01 Phosphorous 4.8 mg/dL High 2.2-4.6 [facility] Comment on above: Performed By: #### M CHRISTINA PALUMBO, DAYANA, CHM7 ####[facility] (DEFAULT)[address] [facility] [place] [address] Phosphate [Mass/Vol] 4.8 mg/dL High 2.2 - 4 .6 mg/dL [facility] PT,INR,PTTon 08-01-2022 aPTT Coag (Bld) [Time] 31.7 s Normal 24.0-34.3 [facility] Comment on above: Performed By: #### P TPTT ####[facility] (DEFAULT)[address] [facility] [place] [address] INR Coag (PPP) [Relative time] 1.0 {INR} Normal 0.9-1.1 [facility] Comment on above: Performed By: #### P TPTT ####[facility] (DEFAULT)[address] [facility] [place] [address] PT Coag (PPP) [Time] 13.7 s Normal 11.9-14.2 [facility] Comment on above: Performed By: #### P TPTT ####[facility] (DEFAULT)[address] [facility] [place] [address] aPTT Coag (PPP) [Time] 31.7 s [facility] INR Coag (Bld) [Relative time] 1.0 {INR} 0.9 - 1.1 [facility] Interpretation and review of laboratory results Normal [facility] PT Coag (PPP) [Time] 13.7 s [facility] SCREEN: MRSA/MSSAOrdered By: Dorian Costa on 08-01-2022 Interpretation and review of laboratory results Normal [facility] Methicillin Resistant S. Aureus By Pcr Negative Negative [facility] Staphylococcus Aureus By Pcr Negative Negative [facility] This test was perfor med using a real time PCR assay. Results should be interpreted in conjunction with other clinical and laboratory findings. A positive result does not necessarily indicate the presence of viable organism. This test should not be used as a test of cure. For E-swab specimens, this test was developed and its performance characteristics determined by the Clinical Microbiology Laboratory at [facility]. It has not been cleared or approved by the FDA.The laboratory is regulated under CLIA as qualified to perform high-complexity testing. This test is used for clinical purposes. It should not be regarded as investigational or for research. [facility] SCREEN: MRSA/MSSAon 08-02-19 Methicillin Resistant S. Aureus By Pcr Negative Normal Negative [facility] Comment on above: Order Comment: Colle ct with an ESWAB - Anterior Nares for MRSA + MSSAThis test was performed using a real time PCR assay. Results should be interpreted in conjunction with other clinical and laboratory findings. A positive result does not necessarily indicate the presence of viable organism. This test should not be used as a test of cure. For E-swab specimens, this test was developed and its performance characteristics determined by the Clinical Microbiology Laboratory at [facility]. It has not been cleared or approved by the FDA.The laboratory is regulated under CLIA as qualified to perform high-complexity testing. This test is used for clinical purposes. It should not be regarded as investigational or for research. Performed By: #### S CRSB ####[facility] (DEFAULT)[address] [place] [id number] Staphylococcus Aureus By Pcr Negative Normal Negative [facility] Comment on above: Order Comment: Colle ct with an ESWAB - Anterior Nares for MRSA + MSSAThis test was performed using a real time PCR assay. Results should be interpreted in conjunction with other clinical and laboratory findings. A positive result does not necessarily indicate the presence of viable organism. This test should not be used as a test of cure. For E-swab specimens, this test was developed and its performance characteristics determined by the Clinical Microbiology Laboratory at [facility]. It has not been cleared or approved by the FDA.The laboratory is regulated under CLIA as qualified to perform high-complexity testing. This test is used for clinical purposes. It should not be regarded as investigational or for research. Performed By: #### S CRSB ####[facility] (DEFAULT)[address] [place] [address] TYPE AND SCREENon 08-01-2022 ABO/RH(D) TYPE Positive Normal [facility] Comment on above: Performed By: #### X M ####[facility] (DEFAULT)[address] [address] ABO/RH(D) TYPE Positive [facility] CT STEALTH HEAD WITHOUT CONT RASTon 07-31-2022 CT STEALTH HEAD WITHOUT CONTRAST Normal [facility] CARDIAC RHYTHM (SCANNED)on 0 07-30-2022 [facility] Basophil percentageOrdered B y: Dr. Nicholson on 07-24-2022 Chloride [Moles/Vol] 101 mmol/L 98-107 [facility] Glucose [Mass/Vol] 129 mg/dL 74-106 [facility] Comment on above: Fasting Glucose resu lt greater than or equal to 126 mg/dL suggests DIABETES MELLITUS per A.D.A. criteria. Potassium [Moles/Vol] 4.6 mmol/L 3.5-5.1 [facility] Sodium [Moles/Vol] 137 mmol/L 136-145 [facility] Laboratory - Chemistry and C hemistry - challengeOrdered By: Dr. Nicholson on 07-24-2022 CO2 [Moles/Vol] 29.0 mmol/L 21.0-32.0 [facility] Urea nitrogen/Creatinine [Mass ratio] 14.4 mg/mg 10-20 [facility] No Panel InformationOrdered By: Dr. Nicholson on 07-24-2022 Estimated GFR (MDRD) Amer 132 mL/min >60 [facility] Comment on above: GFR Calc Estimated GFR (MDRD) Non-Af Amer 109 mL/min >60 [facility] Comment on above: Non- GFR Calc Serum or plasma calcium crystal urement (mass/volume)Ordered By: Dr. Nicholson on 07-24-2022 Calcium [Mass/Vol] 9.8 mg/dL 8.5-10.1 [facility] Serum or plasma creatinine m easurement (mass/volume)Ordered By: Dr. Nicholson on 07-24-2022 Creatinine [Mass/Vol] 0.83 mg/dL 0.70-1.30 [facility] Comment on above: The validity of the calculated GFR & GFRAA in patients over 70 years has not been determined. Clinical correlation is essential. Serum or plasma urea nitroge n measurement (mass/volume)Ordered By: Dr. Nicholson on 07-24-2022 Urea nitrogen [Mass/Vol] 12 mg/dL 7-18 [facility] Thin prep Papanicolaou smear with manual screeningOrdered By: Dr. Nicholson on 07-24-2022 Thin prep Papanicolaou smear with manual screening 7 5-15 [facility] Bacteria identified Cx Nom ( Wound)Ordered By: Dr. Wallace on 07-18-2022 Wound Culture Staphylococcus epidermidis [facility] Wound Culture Kocuria rosea [facility] Basophil percentageOrdered B y: Dr. Wallace on 07-17-2022 Basophil percentage 0 SEEN /hpf 0-5 [facility] Bilirubin Test strip Ql (U)O rdered By: Dr. Wallace on 07-17-2022 Bilirubin Ql (U) Negative Negative [facility] Ketones Test strip Ql (U)Ord ered By: Dr. Wallace on 07-17-2022 Ketones Ql (U) Negative Negative [facility] Mucus LM Ql (Urine sed)Order ed By: Dr. Wallace on 07-17-2022 Mucus Ql (Urine sed) 0 SEEN /hpf [facility] Nitrite Test strip Ql (U)Ord ered By: Dr. Wallace on 07-17-2022 Nitrite Ql (U) Negative Negative [facility] Protein Test strip Ql (U)Ord ered By: Dr. Wallace on 07-17-2022 Protein Ql (U) Negative Negative [facility] Squamous epithelial cells de tection in urine sediment by light microscopyOrdered By: Dr. Wallace on 07-17-2022 Epithelial cells.squamous LM Ql (Urine sed) 0 SEEN /hpf 0-5 [facility] Urine blood detectionOrdered By: Dr. Wallace on 07-17-2022 RBC Ql (U) Negative Negative [facility] RBC Ql (U) 0 SEEN /hpf 0-5 [facility] Urine clarityOrdered By: Dr. Wallace on 07-17-2022 Clarity (U) Clear Clear [facility] Urine color determinationOrd ered By: Dr. Wallace on 07-17-2022 Color (U) Yellow Yellow [facility] Urine glucose detectionOrder ed By: Dr. Wallace on 07-17-2022 Glucose Ql (U) Normal mg/dl Normal [facility] Urine leukocyte esterase det ection by dipstickOrdered By: Dr. Wallace on 07-17-2022 Leukocyte esterase Test strip Ql (U) Negative Negative [facility] Urine pHOrdered By: Dr. Quan hare on 07-17-2022 pH (U) 5.0 [pH] 5.0 - 8.0 [facility] Urine sediment bacteria coun t by microscopy (number/high power field)Ordered By: Dr. Wallace on 07-17-2022 Bacteria LM.HPF (Urine sed) [#/Area] 0 /[HPF] None Seen [facility] Urine specific gravity measu rementOrdered By: Dr. Wallace on 07-17-2022 Specific gravity (U) [Rel density] 1.025 1.002-1.030 [facility] Urobilinogen Auto test strip Ql (U)Ordered By: Dr. Wallace on 07-17-2022 Urobilinogen Ql (U) Normal mg/dl Normal [facility] Basophil percentageOrdered B y: Dr. Wallace on 07-16-2022 Bilirubin [Mass/Vol] 0.60 mg/dL 0.20-1.00 [facility] Comment on above: For patients on eltr ombopag therapy, use of Dimension [place] TBIL is not recommended. Chloride [Moles/Vol] 104 mmol/L 98-107 [facility] Glucose [Mass/Vol] 101 mg/dL 74-106 [facility] Comment on above: Fasting Glucose resu lt from 100 to 125 mg/dL suggests IMPAIRED HOMEOSTASIS per A.D.A. criteria. Potassium [Moles/Vol] 4.0 mmol/L 3.5-5.1 [facility] Protein [Mass/Vol] 7.2 g/dL 6.4-8.2 [facility] Sodium [Moles/Vol] 141 mmol/L 136-145 [facility] WBC (Bld) [#/Vol] 9.7 10*3/uL 4.4-11.0 [facility] Blood erythrocytes count (nu mber/volume)Ordered By: Dr. Wallace on 07-16-2022 RBC (Bld) [#/Vol] 4.83 10*6/uL 4.6-6.2 [facility] Blood hemoglobin measurement (mass/volume)Ordered By: Dr. Wallace on 07-16-2022 Hemoglobin (Bld) [Mass/Vol] 13.9 g/dL 13.0-16.5 [facility] Blood platelet mean volumeOr dered By: Dr. Wallace on 07-16-2022 Platelet mean volume (Bld) [Entitic vol] 9.1 fL 6.2-12.0 [facility] Determination of erythrocyte mean corpuscular volume (MCV)Ordered By: Dr. Wallace on 07-16-2022 MCV (RBC) [Entitic vol] 90.1 fL 80-94 [facility] Hematocrit Auto (Bld) [Volum e fraction]Ordered By: Dr. Wallace on 07-16-2022 Hematocrit (Bld) [Volume fraction] 43.5 % 40-54 [facility] Laboratory - Chemistry and C hemistry - challengeOrdered By: Dr. Wallace on 07-16-2022 ALP [Catalytic activity/Vol] 146 U/L 45-117 [facility] ALT [Catalytic activity/Vol] 68 U/L 16-61 [facility] CO2 [Moles/Vol] 30.0 mmol/L 21.0-32.0 [facility] Globulin (S) [Mass/Vol] 3.8 g/dL 2.2-4.2 [facility] Urea nitrogen/Creatinine [Mass ratio] 23.6 mg/mg 10-20 [facility] Laboratory - Hematology and Cell countsOrdered By: Dr. Wallace on 07-16-2022 Erythrocyte distribution width (RBC) [Entitic vol] 41.4 fL 35.1-43.9 [facility] Erythrocyte distribution width (RBC) [Ratio] 12.5 % 11.6-14.6 [facility] MCH (RBC) [Entitic mass] 28.8 pg 27.0-32.0 [facility] MCHC Auto (RBC) [Mass/Vol]Or dered By: Dr. Wallace on 07-16-2022 MCHC (RBC) [Mass/Vol] 32.0 g/dL 32-36 [facility] No Panel InformationOrdered By: Dr. Wallace on 07-16-2022 Estimated Creatinine Clearance Calc 101.55 ml/min [facility] Estimated GFR (MDRD) Amer 123 mL/min >60 [facility] Comment on above: GFR Calc Estimated GFR (MDRD) Non-Af Amer 101 mL/min >60 [facility] Comment on above: Non- GFR Calc Platelets bldOrdered By: Dr. Wallace on 07-16-2022 Platelets (Bld) [#/Vol] 294 10*3/uL 150-450 [facility] Serum or plasma albumin crystal urement (mass/volume)Ordered By: Dr. Wallace on 07-16-2022 Albumin [Mass/Vol] 3.4 g/dL 3.2-5.0 [facility] Serum or plasma albumin/glob ulin mass ratioOrdered By: Dr. Wallace on 07-16-2022 Albumin/Globulin [Mass ratio] 0.9 {ratio} 0.9-2.4 [facility] Serum or plasma calcium crystal urement (mass/volume)Ordered By: Dr. Wallace on 07-16-2022 Calcium [Mass/Vol] 9.7 mg/dL 8.5-10.1 [facility] Serum or plasma creatinine m easurement (mass/volume)Ordered By: Dr. Wallace on 07-16-2022 Creatinine [Mass/Vol] 0.89 mg/dL 0.70-1.30 [facility] Comment on above: The validity of the calculated GFR & GFRAA in patients over 70 years has not been determined. Clinical correlation is essential. Serum or plasma urea nitroge n measurement (mass/volume)Ordered By: Dr. Wallace on 07-16-2022 Urea nitrogen [Mass/Vol] 21 mg/dL 7-18 [facility] Thin prep Papanicolaou smear with manual screeningOrdered By: Dr. Wallace on 07-16-2022 Thin prep Papanicolaou smear with manual screening 16 U/L 15-37 [facility] Thin prep Papanicolaou smear with manual screening 7 5-15 [facility] Gram stain for investigation of transfusion reactionOrdered By: Dr. Wallace on 07-15-2022 Microscopic observation Gram stain Nom (Unsp spec) [facility] Basophil percentageOrdered B y: Dr. Wallace on 06-08-2022 Basophil percentage 4.3 mg/dL 2.5-4.9 [facility] Laboratory - Chemistry and C hemistry - challengeOrdered By: Dr. Wallace on 06-08-2022 Magnesium [Mass/Vol] 2.2 mg/dL 1.6-2.6 [facility] CBC,PLATELETSon 06-06-2022 Hematocrit (Bld) [Volume fraction] 34.7 % Low 39.6-48.8 [facility] Comment on above: Performed By: #### [facility] ####[facility] (DEFAULT)[address] [place] [address] Hemoglobin (Bld) [Mass/Vol] 11.4 g/dL Low 13.4-16.8 [facility] Comment on above: Performed By: #### H EMOGC ####[facility] (DEFAULT)[address] [place] [address] MCV (RBC) [Entitic vol] 89.9 fL Normal 79.0-94.5 [facility] Comment on above: Performed By: #### H EMOGC ####[facility] (DEFAULT)[address] [facility] [place] [address] Mean Cell Hgb 29.5 pg Normal 26.1-33.3 [facility] Comment on above: Performed By: #### H EMOGC ####[facility] (DEFAULT)[address] [facility] [place] [address] Mean Cell Hgb Conc 32.9 g/dL Normal 31.9-36.5 [facility] Comment on above: Performed By: #### H EMOGC ####[facility] (DEFAULT)[address] [facility] [place] [address] Platelet mean volume (Bld) [Entitic vol] 9.0 fL Normal 8.7-12.3 [facility] Comment on above: Performed By: #### H EMOGC ####[facility] (DEFAULT)[address] [place] [address] Platelets (Bld) [#/Vol] 517 10*3/uL High 146-337 [facility] Comment on above: Performed By: #### H EMOGC ####[facility] (DEFAULT)[address] [facility] [place] [place] [address] RBC (Bld) [#/Vol] 3.86 10*6/uL Low 4.38-5.83 [facility] Comment on above: Performed By: #### H EMOGC ####[facility] (DEFAULT)[address] [facility] [place] [address] RBC Distribution 15.4 % High 10.9-14.3 [facility] Comment on above: Performed By: #### [facility] ####[facility] (DEFAULT)[address] [facility] [place] [address] WBC (Bld) [#/Vol] 14.45 10*3/uL High 3.73-10.10 [facility] Comment on above: Performed By: #### [facility] ####[facility] (DEFAULT)[address] [facility] [place] [address] CHEM 7 (LYTES,BUN,CREA,GLUC) on 06-06-2022 Anion gap [Moles/Vol] 13 mmol/L Normal 7-17 [facility] Comment on above: Performed By: #### C HM7, MGO, IPB ####[facility] (DEFAULT)[address] [facility] [place] [address] Chloride [Moles/Vol] 102 mmol/L Normal 98-108 [facility] Comment on above: Performed By: #### C HM7, MGO, IPB ####[facility] (DEFAULT)[address] [facility] [place] [address] CO2 [Moles/Vol] 25 mmol/L Normal 21-31 [facility] Comment on above: Performed By: #### C HM7, MGO, IPB ####[facility] (DEFAULT)[address] [facility] [place] [address] Creatinine [Mass/Vol] 0.54 mg/dL Low 0.70-1.30 [facility] Comment on above: Performed By: #### C HM7, MGO, IPB ####[facility] (DEFAULT)[address] [facility] [place] [address] eGFR, CKD-EPI, Male > Normal >=60 [facility] Comment on above: Result Comment: Repo rted eGFR is based on the CKD-EPI 2020 equation using creatinine, age, and sex. Performed By: #### C HM7, MGO, IPB ####[facility] (DEFAULT)[address] [place] [address] Glucose [Mass/Vol] 126 mg/dL High 70-99 [facility] Comment on above: Performed By: #### Josette HMCrystal MGO, IPB ####[facility] (DEFAULT)[address] [place] [address] Osmolality [Osmolality] 292 mosm/kg Normal 278-305 [facility] Comment on above: Performed By: #### C JAYME MGO, IPB ####[facility] (DEFAULT)[address] [place] [address] Potassium [Moles/Vol] 4.0 mmol/L Normal 3.5-5.0 [facility] Comment on above: Performed By: #### C JAYME MGO, IPB ####[facility] (DEFAULT)[address] [place] [address] Sodium [Moles/Vol] 136 mmol/L Normal 135-145 [facility] Comment on above: Performed By: #### Josette DELACRUZ MGAnkit, IPB ####[facility] (DEFAULT)[address] [place] [address] Urea nitrogen [Mass/Vol] 28 mg/dL High 7-25 [facility] Comment on above: Performed By: #### Josette HMCrystal MGO, IPB ####[facility] (DEFAULT)[address] [place] [address] Urea nitrogen/Creatinine [Mass ratio] 52 mg/mg Normal [facility] Comment on above: Performed By: #### Josette DELACRUZ MGO, IPB ####[facility] (DEFAULT)[address] [place] [address] FACTOR V MUTATION FACV LEIDE Non 06-06-2022 Receiving Status Accessioned in Lab Normal [facility] Comment on above: Performed By: #### F ACVMB ####[facility] (DEFAULT)[address] [place] [address] IONIZED CALCIUM, WHOLE BLOOD on 06-06-2022 ICA 4.34 mg/dL Low 4.60-5.30 [facility] Comment on above: Performed By: #### I CA ####[facility] (DEFAULT)[address] [place] [address] MAGNESIUMon 06-06-2022 Magnesium [Mass/Vol] 2.2 mg/dL Normal 1.6-2.6 [facility] Comment on above: Performed By: #### C HM7, MGO, IPB ####[facility] (DEFAULT)[address] [place] [address] PHOSPHATE, INORGANICon 06-06 Phosphorous 3.8 mg/dL Normal 2.2-4.6 [facility] Comment on above: Performed By: #### C HM7, MGO, IPB ####[facility] (DEFAULT)[address] [place] [address] ANTI PHOSPHOLIPID ANTIBODYon 06-05-2022 Anti-Cardiolipin Antibody, IgG 33.4 CU High 0.0-20.0 [facility] Comment on above: Performed By: #### P LAB ####[facility] (DEFAULT)[address] [place] [address] Anti-Cardiolipin Antibody, IgM < Normal 0.0-20.0 [facility] Comment on above: Performed By: #### P LAB ####[facility] (DEFAULT)[address] [place] [address] CBC,PLATELETSon 06-05-2022 Hematocrit (Bld) [Volume fraction] 35.4 % Low 39.6-48.8 [facility] Comment on above: Performed By: #### H EMOGC ####[facility] (DEFAULT)[address] [place] [address] Hemoglobin (Bld) [Mass/Vol] 11.7 g/dL Low 13.4-16.8 [facility] Comment on above: Performed By: #### H EMOGC ####[facility] (DEFAULT)[address] [facility] [place] [address] MCV (RBC) [Entitic vol] 90.1 fL Normal 79.0-94.5 [facility] Comment on above: Performed By: #### H EMOGC ####[facility] (DEFAULT)[address] [facility] [place] [address] Mean Cell Hgb 29.8 pg Normal 26.1-33.3 [facility] Comment on above: Performed By: #### H EMOGC ####[facility] (DEFAULT)[address] [facility] [place] [address] Mean Cell Hgb Conc 33.1 g/dL Normal 31.9-36.5 [facility] Comment on above: Performed By: #### H EMOGC ####[facility] (DEFAULT)[address] [facility] [place] [address] Platelet mean volume (Bld) [Entitic vol] 9.1 fL Normal 8.7-12.3 [facility] Comment on above: Performed By: #### H EMOGC ####[facility] (DEFAULT)[address] [facility] [place] [address] Platelets (Bld) [#/Vol] 496 10*3/uL High 146-337 [facility] Comment on above: Performed By: #### H EMOGC ####[facility] (DEFAULT)[address] [facility] [place] [address] RBC (Bld) [#/Vol] 3.93 10*6/uL Low 4.38-5.83 [facility] Comment on above: Performed By: #### H EMOGC ####[facility] (DEFAULT)[address] [facility] [place] [address] RBC Distribution 15.3 % High 10.9-14.3 [facility] Comment on above: Performed By: #### [facility] ####[facility] (DEFAULT)[address] [facility] [place] [address] WBC (Bld) [#/Vol] 15.87 10*3/uL High 3.73-10.10 [facility] Comment on above: Performed By: #### [facility] ####[facility] (DEFAULT)[address] [place] [address] CHEM 7 (LYTES,BUN,CREA,GLUC) on 06-05-2022 Anion gap [Moles/Vol] 14 mmol/L Normal 7-17 [facility] Comment on above: Performed By: #### I PB, CHM7, MGO ####[facility] (DEFAULT)[address] [facility] [place] [address] Chloride [Moles/Vol] 101 mmol/L Normal 98-108 [facility] Comment on above: Performed By: #### I PB, CHM7, MGO ####[facility] (DEFAULT)[address] [facility] [place] [address] CO2 [Moles/Vol] 26 mmol/L Normal 21-31 [facility] Comment on above: Performed By: #### I PB, CHM7, MGO ####[facility] (DEFAULT)[address] [facility] [place] [address] Creatinine [Mass/Vol] 0.55 mg/dL Low 0.70-1.30 [facility] Comment on above: Performed By: #### I PB, CHM7, MGO ####[facility] (DEFAULT)[address] [facility] [place] [address] eGFR, CKD-EPI, Male > Normal >=60 [facility] Comment on above: Result Comment: Repo rted eGFR is based on the CKD-EPI 2020 equation using creatinine, age, and sex. Performed By: #### I PB, CHM7, MGO ####[facility] (DEFAULT)[address] [place] [address] Glucose [Mass/Vol] 131 mg/dL High 70-99 [facility] Comment on above: Performed By: #### I PB, CHM7, MGO ####[facility] (DEFAULT)[address] [place] [address] Osmolality [Osmolality] 295 mosm/kg Normal 278-305 [facility] Comment on above: Performed By: #### I PB, CHM7, MGO ####[facility] (DEFAULT)[address] [place] [address] Potassium [Moles/Vol] 4.0 mmol/L Normal 3.5-5.0 [facility] Comment on above: Performed By: #### I PB, CHM7, MGO ####[facility] (DEFAULT)[address] [facility] [place] [address] Sodium [Moles/Vol] 137 mmol/L Normal 135-145 [facility] Comment on above: Performed By: #### I PB, CHM7, MGO ####[facility] (DEFAULT)[address] [place] [address] Urea nitrogen [Mass/Vol] 28 mg/dL High 7-25 [facility] Comment on above: Performed By: #### I PB, CHM7, MGO ####[facility] (DEFAULT)[address] [facility] [place] [place] [address] Urea nitrogen/Creatinine [Mass ratio] 51 mg/mg Normal [facility] Comment on above: Performed By: #### I PB, CHM7, MGO ####[facility] (DEFAULT)[address] [place] [address] IONIZED CALCIUM, WHOLE BLOOD on 06-05-2022 ICA 4.54 mg/dL Low 4.60-5.30 [facility] Comment on above: Performed By: #### I CA ####[facility] (DEFAULT)[address] [facility] [place] [address] LAWUP-PATHon 06-05-2022 Interpretation By: Tom Hitchcock MD Normal [facility] Comment on above: Performed By: #### L [id number], [id number] ####[facility] (DEFAULT)[address] [facility] [place] [address] Lupus Anticoagulant Interpretation Normal [facility] Comment on above: Result Comment: Coag ulation assays for the presence of a Lupus Anticoagulant (LA) are NEGATIVE at this time. Performed By: #### L [id number], [id number] ####[facility] (DEFAULT)[address] [facility] [place] [address] LAWUP-ROUTon 06-05-2022 INR Coag (PPP) [Relative time] 1.1 {INR} Normal 0.9-1.1 [facility] Comment on above: Performed By: #### L [id number] ####[facility] (DEFAULT)[address] [facility] [place] [address] PT Coag (PPP) [Time] 13.8 s Normal 11.9-14.2 [facility] Comment on above: Performed By: #### L [id number] ####[facility] (DEFAULT)[address] [facility] [place] [address] Thrombin Time 17.3 sec Normal 13.0-20.0 [facility] Comment on above: Performed By: #### L [id number] ####[facility] (DEFAULT)[address] [facility] [place] [address] TT Mixing Study With Protamine Sulfate Not Indicated Normal [facility] Comment on above: Performed By: #### L [id number] ####[facility] (DEFAULT)[address] [facility] [place] [address] LAWUP-SPECon 06-05-2022 dRVVT Confirm Ratio Not Indicated Normal [facility] Comment on above: Performed By: #### L [id number], [id number] ####[facility] (DEFAULT)[address] [facility] [place] [address] dRVVT Normalized Ratio Not Indicated Normal [facility] Comment on above: Performed By: #### L [id number], [id number] ####[facility] [facility] (DEFAULT)[address] [facility] [place] [address] dRVVT Screen Ratio 0.92 Normal <=1.19 [facility] Comment on above: Performed By: #### L [id number], [id number] ####[facility] (DEFAULT)[address] [facility] [place] [address] Neutralization Not Indicated Normal [facility] Comment on above: Performed By: #### L [id number], [id number] ####[facility] (DEFAULT)[address] [facility] [place] [address] PTT-Lupus Sensitive 40.9 sec Normal <=43.9 [facility] Comment on above: Performed By: #### L [id number], [id number] ####[facility] (DEFAULT)[address] [facility] [place] [address] PTT-Lupus Sensitive Mix With Normal Plasma Not Indicated Normal [facility] Comment on above: Performed By: #### L [id number], [id number] ####[facility] (DEFAULT)[address] [place] [address], [place] [address] MAGNESIUMon 06-05-2022 Magnesium [Mass/Vol] 2.2 mg/dL Normal 1.6-2.6 [facility] Comment on above: Performed By: #### I PB, CHM7, MGO ####[facility] (DEFAULT)[address] [facility] [place] [address] PHOSPHATE, INORGANICon 06-05 Phosphorous 4.2 mg/dL Normal 2.2-4.6 [facility] Comment on above: Performed By: #### I PB, CHM7, MGO ####[facility] (DEFAULT)[address] [facility] [place] [address] PROTEIN C ACTIVITYon 023 Protein C Activity 151 % Activity Normal 72-220 [facility] Comment on above: Performed By: #### P ROTC ####[facility] (DEFAULT)[address] [facility] [place] [address] PROTEIN S ACTIVITYon 023 Protein S Activity 108 % Activity Normal 50-168 [facility] Comment on above: Performed By: #### P ROTS ####[facility] (DEFAULT)[address] [place] [address], [place] [address] CBC,PLATELETSon 06-04-2022 Hematocrit (Bld) [Volume fraction] 34.7 % Low 39.6-48.8 [facility] Comment on above: Performed By: #### H EMOGC ####[facility] (DEFAULT)[address] [place] [address], [place] [address] Hemoglobin (Bld) [Mass/Vol] 11.6 g/dL Low 13.4-16.8 [facility] Comment on above: Performed By: #### H EMOGC ####[facility] (DEFAULT)[address] [place] [address], [place] [address] MCV (RBC) [Entitic vol] 89.4 fL Normal 79.0-94.5 [facility] Comment on above: Performed By: #### H EMOGC ####[facility] (DEFAULT)[address] [place] [address], [place] [address] Mean Cell Hgb 29.9 pg Normal 26.1-33.3 [facility] Comment on above: Performed By: #### H EMOGC ####[facility] (DEFAULT)[address] [facility] [place] [address] Mean Cell Hgb Conc 33.4 g/dL Normal 31.9-36.5 [facility] Comment on above: Performed By: #### H EMOGC ####[facility] (DEFAULT)[address] [facility] [place] [address] Platelet mean volume (Bld) [Entitic vol] 9.1 fL Normal 8.7-12.3 [facility] Comment on above: Performed By: #### H EMOGC ####[facility] (DEFAULT)[address] [facility] [place] [address] Platelets (Bld) [#/Vol] 522 10*3/uL High 146-337 [facility] Comment on above: Performed By: #### H EMOGC ####[facility] (DEFAULT)[address] [facility] [place] [address] RBC (Bld) [#/Vol] 3.88 10*6/uL Low 4.38-5.83 [facility] Comment on above: Performed By: #### H EMOGC ####[facility] (DEFAULT)[address] [facility] [place] [address] RBC Distribution 15.4 % High 10.9-14.3 [facility] Comment on above: Performed By: #### H EMOGC ####[facility] (DEFAULT)[address] [facility] [place] [address] WBC (Bld) [#/Vol] 18.38 10*3/uL High 3.73-10.10 [facility] Comment on above: Performed By: #### H EMOGC ####[facility] (DEFAULT)[address] [facility] [place] [address] CHEM 7 (LYTES,BUN,CREA,GLUC) on 06-04-2022 Anion gap [Moles/Vol] 15 mmol/L Normal 7-17 [facility] Comment on above: Performed By: #### C HM7, IPB, MGO ####[facility] (DEFAULT)[address] [facility] [place] [address] Chloride [Moles/Vol] 102 mmol/L Normal 98-108 [facility] Comment on above: Performed By: #### C HM7, IPB, MGO ####[facility] (DEFAULT)[address] [place] [address] CO2 [Moles/Vol] 24 mmol/L Normal 21-31 [facility] Comment on above: Performed By: #### C HM7, IPB, MGO ####[facility] (DEFAULT)[address] [place] [address] Creatinine [Mass/Vol] 0.53 mg/dL Low 0.70-1.30 [facility] Comment on above: Performed By: #### C HM7, IPB, MGO ####[facility] (DEFAULT)[address] [facility] [place] [address] eGFR, CKD-EPI, Male > Normal >=60 [facility] Comment on above: Result Comment: Repo rted eGFR is based on the CKD-EPI 2020 equation using creatinine, age, and sex. Performed By: #### C HM7, IPB, MGO ####[facility] (DEFAULT)[address] [place] [address] Glucose [Mass/Vol] 120 mg/dL High 70-99 [facility] Comment on above: Performed By: #### Josette HM7, IPB, MGO ####[facility] (DEFAULT)[address] [place] [address] Osmolality [Osmolality] 293 mosm/kg Normal 278-305 [facility] Comment on above: Performed By: #### C HM7, IPB, MGO ####[facility] (DEFAULT)[address] [place] [address] Potassium [Moles/Vol] 4.5 mmol/L Normal 3.5-5.0 [facility] Comment on above: Performed By: #### C HM7, IPB, MGO ####[facility] (DEFAULT)[address] [facility] [place] [address] Sodium [Moles/Vol] 136 mmol/L Normal 135-145 [facility] Comment on above: Performed By: #### C DAYANA DELACRUZ, MGO ####[facility] (DEFAULT)[address] [place] [address] Urea nitrogen [Mass/Vol] 27 mg/dL High 7-25 [facility] Comment on above: Performed By: #### DOMONIQUE VALDERRAMAB, MGO ####[facility] (DEFAULT)[address] [facility] [place] [address] Urea nitrogen/Creatinine [Mass ratio] 51 mg/mg Normal [facility] Comment on above: Performed By: #### C DAYANA DELACRUZ, MGO ####[facility] (DEFAULT)[address] [facility] [place] [address] IONIZED CALCIUM, WHOLE BLOOD on 06-04-2022 ICA 4.44 mg/dL Low 4.60-5.30 [facility] Comment on above: Performed By: #### I CA ####[facility] (DEFAULT)[address] [facility] [place] [address] MAGNESIUMon 06-04-2022 Magnesium [Mass/Vol] 2.2 mg/dL Normal 1.6-2.6 [facility] Comment on above: Performed By: #### DOMONIQUE VALDERRAMAB, MGO ####[facility] (DEFAULT)[address] [facility] [place] [address] PHOSPHATE, INORGANICon 06-04 Phosphorous 3.7 mg/dL Normal 2.2-4.6 [facility] Comment on above: Performed By: #### C DOMONIQUE DELACRUZB, MGO ####[facility] (DEFAULT)[address] [place] [address] CBC,PLATELETSon 06-03-2022 Hematocrit (Bld) [Volume fraction] 33.7 % Low 39.6-48.8 [facility] Comment on above: Performed By: #### [facility] ####[facility] (DEFAULT)[address] [facility] [place] [address] Hemoglobin (Bld) [Mass/Vol] 11.2 g/dL Low 13.4-16.8 [facility] Comment on above: Performed By: #### H EMOGC ####[facility] (DEFAULT)[address] [facility] [place] [address] MCV (RBC) [Entitic vol] 88.7 fL Normal 79.0-94.5 [facility] Comment on above: Performed By: #### H EMOGC ####[facility] (DEFAULT)[address] [facility] [place] [address] Mean Cell Hgb 29.5 pg Normal 26.1-33.3 [facility] Comment on above: Performed By: #### H EMOGC ####[facility] (DEFAULT)[address] [facility] [place] [address] Mean Cell Hgb Conc 33.2 g/dL Normal 31.9-36.5 [facility] Comment on above: Performed By: #### H EMOGC ####[facility] (DEFAULT)[address] [facility] [place] [address] Platelet mean volume (Bld) [Entitic vol] 9.1 fL Normal 8.7-12.3 [facility] Comment on above: Performed By: #### H EMOGC ####[facility] (DEFAULT)[address] [facility] [place] [address] Platelets (Bld) [#/Vol] 478 10*3/uL High 146-337 [facility] Comment on above: Performed By: #### H EMOGC ####[facility] (DEFAULT)[address] [facility] [place] [address] RBC (Bld) [#/Vol] 3.80 10*6/uL Low 4.38-5.83 [facility] Comment on above: Performed By: #### H EMOGC ####[facility] (DEFAULT)[address] [place] [address] RBC Distribution 15.0 % High 10.9-14.3 [facility] Comment on above: Performed By: #### [facility] ####[facility] (DEFAULT)[address] [place] [address] WBC (Bld) [#/Vol] 15.19 10*3/uL High 3.73-10.10 [facility] Comment on above: Performed By: #### [facility] ####[facility] (DEFAULT)[address] [place] [address] CHEM 7 (LYTES,BUN,CREA,GLUC) on 06-03-2022 Anion gap [Moles/Vol] 14 mmol/L Normal 7-17 [facility] Comment on above: Performed By: #### DAYANA PRATT, CHM7 ####[facility] (DEFAULT)[address] [place] [address] Chloride [Moles/Vol] 104 mmol/L Normal 98-108 [facility] Comment on above: Performed By: #### DAYANA PRATT, CHM7 ####[facility] (DEFAULT)[address] [place] [address] CO2 [Moles/Vol] 24 mmol/L Normal 21-31 [facility] Comment on above: Performed By: #### DAYANA PRATT, CHM7 ####[facility] (DEFAULT)[address] [place] [address] Creatinine [Mass/Vol] 0.64 mg/dL Low 0.70-1.30 [facility] Comment on above: Performed By: #### DAYANA PRATT, CHM7 ####[facility] (DEFAULT)[address] [place] [address] eGFR, CKD-EPI, Male > Normal >=60 [facility] Comment on above: Result Comment: Repo rted eGFR is based on the CKD-EPI 2020 equation using creatinine, age, and sex. Performed By: #### DAYANA PRATT CHAneta7 ####[facility] (DEFAULT)[address] [place] [address] Glucose [Mass/Vol] 122 mg/dL High 70-99 [facility] Comment on above: Performed By: #### DAYAAN PRATT, CHM7 ####[facility] (DEFAULT)[address] [place] [address] Osmolality [Osmolality] 296 mosm/kg Normal 278-305 [facility] Comment on above: Performed By: #### DAYANA PRATT CHM7 ####[facility] (DEFAULT)[address] [place] [address] Potassium [Moles/Vol] 4.2 mmol/L Normal 3.5-5.0 [facility] Comment on above: Performed By: #### DAYANA PRATT, CHM7 ####[facility] (DEFAULT)[address] [place] [address] Sodium [Moles/Vol] 138 mmol/L Normal 135-145 [facility] Comment on above: Performed By: #### DAYANA PRATT, CHM7 ####[facility] (DEFAULT)[address] [place] [address] Urea nitrogen [Mass/Vol] 26 mg/dL High 7-25 [facility] Comment on above: Performed By: #### DAYANA PRATT, CHM7 ####[facility] (DEFAULT)[address] [place] [address] Urea nitrogen/Creatinine [Mass ratio] 41 mg/mg Normal [facility] Comment on above: Performed By: #### DAYANA PRATT, CHM7 ####[facility] (DEFAULT)[address] [place] [address] IONIZED CALCIUM, WHOLE BLOOD on 06-03-2022 ICA 4.52 mg/dL Low 4.60-5.30 [facility] Comment on above: Performed By: #### I CA ####[facility] (DEFAULT)[address] [facility] [place] [address] MAGNESIUMon 06-03-2022 Magnesium [Mass/Vol] 2.2 mg/dL Normal 1.6-2.6 [facility] Comment on above: Performed By: #### M DAYANA PALUMBO, CHM7 ####[facility] (DEFAULT)[address] [facility] [place] [address] PHOSPHATE, INORGANICon 06-03 Phosphorous 3.5 mg/dL Normal 2.2-4.6 [facility] Comment on above: Performed By: #### DAYANA PRATT, CHM7 ####[facility] (DEFAULT)[address] [place] [address] CBC,PLATELETSon 06-02-2022 Hematocrit (Bld) [Volume fraction] 35.3 % Low 39.6-48.8 [facility] Comment on above: Performed By: #### H EMO ####[facility] (DEFAULT)[address] [place] [address], [place] [address] Hemoglobin (Bld) [Mass/Vol] 11.5 g/dL Low 13.4-16.8 [facility] Comment on above: Performed By: #### H EMO ####[facility] (DEFAULT)[address] [place] [address] MCV (RBC) [Entitic vol] 93.1 fL Normal 79.0-94.5 [facility] Comment on above: Performed By: #### H EMOGC ####[facility] (DEFAULT)[address] [place] [address], [place] [address] Mean Cell Hgb 30.3 pg Normal 26.1-33.3 [facility] Comment on above: Performed By: #### H EMOGC ####[facility] (DEFAULT)[address] [facility] [place] [address] Mean Cell Hgb Conc 32.6 g/dL Normal 31.9-36.5 [facility] Comment on above: Performed By: #### H EMOGC ####[facility] (DEFAULT)[address] [facility] [place] [address] Platelet mean volume (Bld) [Entitic vol] 9.3 fL Normal 8.7-12.3 [facility] Comment on above: Performed By: #### H EMOGC ####[facility] (DEFAULT)[address] [facility] [place] [address] Platelets (Bld) [#/Vol] 458 10*3/uL High 146-337 [facility] Comment on above: Performed By: #### H EMOGC ####[facility] (DEFAULT)[address] [facility] [place] [address] RBC (Bld) [#/Vol] 3.79 10*6/uL Low 4.38-5.83 [facility] Comment on above: Performed By: #### H EMOGC ####[facility] (DEFAULT)[address] [facility] [place] [address] RBC Distribution 14.6 % High 10.9-14.3 [facility] Comment on above: Performed By: #### H EMOGC ####[facility] (DEFAULT)[address] [facility] [place] [address] WBC (Bld) [#/Vol] 15.59 10*3/uL High 3.73-10.10 [facility] Comment on above: Performed By: #### H EMOGC ####[facility] (DEFAULT)[address] [facility] [place] [address] CHEM 7 (LYTES,BUN,CREA,GLUC) on 06-02-2022 Anion gap [Moles/Vol] 18 mmol/L High 7-17 [facility] Comment on above: Performed By: #### I PB, CHM7, MGO ####[facility] (DEFAULT)[address] [place] [address] Chloride [Moles/Vol] 105 mmol/L Normal 98-108 [facility] Comment on above: Performed By: #### I PB, CHM7, MGO ####[facility] (DEFAULT)[address] [place] [address] CO2 [Moles/Vol] 21 mmol/L Normal 21-31 [facility] Comment on above: Performed By: #### I PB, CHM7, MGO ####[facility] (DEFAULT)[address] [facility] [place] [address] Creatinine [Mass/Vol] 0.65 mg/dL Low 0.70-1.30 [facility] Comment on above: Performed By: #### I PB, CHM7, MGO ####[facility] (DEFAULT)[address] [facility] [place] [address] eGFR, CKD-EPI, Male > Normal >=60 [facility] Comment on above: Result Comment: Repo rted eGFR is based on the CKD-EPI 2020 equation using creatinine, age, and sex. Performed By: #### I PB, CHM7, MGO ####[facility] (DEFAULT)[address] [facility] [place] [address] Glucose [Mass/Vol] 111 mg/dL High 70-99 [facility] Comment on above: Performed By: #### I PB, CHM7, MGO ####[facility] (DEFAULT)[address] [facility] [place] [address] Osmolality [Osmolality] 298 mosm/kg Normal 278-305 [facility] Comment on above: Performed By: #### I PB, CHM7, MGO ####[facility] (DEFAULT)[address] [facility] [place] [address] Potassium [Moles/Vol] 4.4 mmol/L Normal 3.5-5.0 [facility] Comment on above: Performed By: #### I PB, CHM7, MGO ####[facility] (DEFAULT)[address] [place] [address] Sodium [Moles/Vol] 140 mmol/L Normal 135-145 [facility] Comment on above: Performed By: #### I PB, CHM7, MGO ####[facility] (DEFAULT)[address] [place] [address] Urea nitrogen [Mass/Vol] 24 mg/dL Normal 7-25 [facility] Comment on above: Performed By: #### I PB, CHM7, MGO ####[facility] (DEFAULT)[address] [place] [address] Urea nitrogen/Creatinine [Mass ratio] 37 mg/mg Normal [facility] Comment on above: Performed By: #### I PB, CHM7, MGO ####[facility] (DEFAULT)[address] [place] [address] IONIZED CALCIUM, WHOLE BLOOD on 06-02-2022 ICA 4.48 mg/dL Low 4.60-5.30 [facility] Comment on above: Performed By: #### I CA ####[facility] (DEFAULT)[address] [facility] [place] [address] MAGNESIUMon 06-02-2022 Magnesium [Mass/Vol] 2.2 mg/dL Normal 1.6-2.6 [facility] Comment on above: Performed By: #### I PB, CHM7, MGO ####[facility] (DEFAULT)[address] [place] [address] PHOSPHATE, INORGANICon 06-02 Phosphorous 3.3 mg/dL Normal 2.2-4.6 [facility] Comment on above: Performed By: #### I PB, CHM7, MGO ####[facility] (DEFAULT)[address] [facility] [place] [address] CBC,PLATELETSon 06-01-2022 Hematocrit (Bld) [Volume fraction] 32.0 % Low 39.6-48.8 [facility] Comment on above: Performed By: #### H EMOGC ####[facility] (DEFAULT)[address] [facility] [place] [address] Hemoglobin (Bld) [Mass/Vol] 10.5 g/dL Low 13.4-16.8 [facility] Comment on above: Performed By: #### H EMOGC ####[facility] (DEFAULT)[address] [place], [place] [address], [place] [address] MCV (RBC) [Entitic vol] 90.4 fL Normal 79.0-94.5 [facility] Comment on above: Performed By: #### H EMOGC ####[facility] (DEFAULT)[address] [facility] [place] [address] Mean Cell Hgb 29.7 pg Normal 26.1-33.3 [facility] Comment on above: Performed By: #### H EMOGC ####[facility] (DEFAULT)[address] [facility] [place] [address] Mean Cell Hgb Conc 32.8 g/dL Normal 31.9-36.5 [facility] Comment on above: Performed By: #### H EMOGC ####[facility] (DEFAULT)[address] [facility] [place] [address] Platelet mean volume (Bld) [Entitic vol] 9.3 fL Normal 8.7-12.3 [facility] Comment on above: Performed By: #### H EMOGC ####[facility] (DEFAULT)[address] [facility] [place] [address] Platelets (Bld) [#/Vol] 381 10*3/uL High 146-337 [facility] Comment on above: Performed By: #### H EMOGC ####[facility] (DEFAULT)[address] [place] [address] RBC (Bld) [#/Vol] 3.54 10*6/uL Low 4.38-5.83 [facility] Comment on above: Performed By: #### [facility] ####[facility] (DEFAULT)[address] [place] [address] RBC Distribution 13.9 % Normal 10.9-14.3 [facility] Comment on above: Performed By: #### H [facility] ####[facility] (DEFAULT)[address] [facility] [place] [address] WBC (Bld) [#/Vol] 13.44 10*3/uL High 3.73-10.10 [facility] Comment on above: Performed By: #### [facility] ####[facility] (DEFAULT)[address] [facility] [place] [address] CHEM 7 (LYTES,BUN,CREA,GLUC) on 06-01-2022 Anion gap [Moles/Vol] 12 mmol/L Normal 7-17 [facility] Comment on above: Performed By: #### I PB, MGO, CHM7 ####[facility] (DEFAULT)[address] [facility] [place] [address] Chloride [Moles/Vol] 108 mmol/L Normal 98-108 [facility] Comment on above: Performed By: #### I PB, MGO, CHM7 ####[facility] (DEFAULT)[address] [facility] [place] [address] CO2 [Moles/Vol] 25 mmol/L Normal 21-31 [facility] Comment on above: Performed By: #### I PB, MGO, CHM7 ####[facility] (DEFAULT)[address] [facility] [place] [address] Creatinine [Mass/Vol] 0.61 mg/dL Low 0.70-1.30 [facility] Comment on above: Performed By: #### I PB MGO CHM7 ####[facility] (DEFAULT)[address] [facility] [place] [address] eGFR, CKD-EPI, Male > Normal >=60 [facility] Comment on above: Result Comment: Repo rted eGFR is based on the CKD-EPI 2020 equation using creatinine, age, and sex. Performed By: #### I PB MGO CHM7 ####[facility] (DEFAULT)[address] [facility] [place] [place] [address] Glucose [Mass/Vol] 142 mg/dL High 70-99 [facility] Comment on above: Performed By: #### I PB MGO CHM7 ####[facility] (DEFAULT)[address] [facility] [place] [address] Osmolality [Osmolality] 301 mosm/kg Normal 278-305 [facility] Comment on above: Performed By: #### I PB MGO, CHM7 ####[facility] (DEFAULT)[address] [facility] [place] [address] Potassium [Moles/Vol] 3.6 mmol/L Normal 3.5-5.0 [facility] Comment on above: Performed By: #### I PB, MGO, CHM7 ####[facility] (DEFAULT)[address] [facility] [place] [address] Sodium [Moles/Vol] 141 mmol/L Normal 135-145 [facility] Comment on above: Performed By: #### I PB, MGO, CHM7 ####[facility] (DEFAULT)[address] [facility] [place] [address] Urea nitrogen [Mass/Vol] 24 mg/dL Normal 7-25 [facility] Comment on above: Performed By: #### I PB, MGO, CHM7 ####[facility] (DEFAULT)[address] [facility] [place] [address] Urea nitrogen/Creatinine [Mass ratio] 39 mg/mg Normal [facility] Comment on above: Performed By: #### I PB, MGO, CHM7 ####[facility] [facility] (DEFAULT)[address] [facility] [place] [address] IONIZED CALCIUM, WHOLE BLOOD on 06-01-2022 ICA 4.53 mg/dL Low 4.60-5.30 [facility] Comment on above: Performed By: #### I CA ####[facility] (DEFAULT)[address] [facility] [place] [address] MAGNESIUMon 06-01-2022 Magnesium [Mass/Vol] 2.1 mg/dL Normal 1.6-2.6 [facility] Comment on above: Performed By: #### I PB, MGO, CHM7 ####U [facility] (DEFAULT)[address] [place] [address], [place] [address] PHOSPHATE, INORGANICon 06-01 Phosphorous 3.1 mg/dL Normal 2.2-4.6 [facility] Comment on above: Performed By: #### I PB, MGO, CHM7 ####[facility] (DEFAULT)[address] [place] [address], [place] [address] BLOOD CULTUREon 05-31-2022 Bacteria identified Cx Nom (Unsp spec) NO GROWTH DAY 5 OF 5 Normal [facility] Comment on above: Order Comment: 2 Bot tles (1 Set - consists of 1 Aerobic bottle and 1 Anaerobic bottle) -1st Peripheral DrawFor syringe method draw:If able to obtain adequate sample (20 ml) inoculate anaerobic bottle firstIf inadequate sample obtained (less than 20 ml) inoculate aerobic bottle firstFor vacutainer method draw: Fill aerobic bottle first, then anaerobic Performed By: #### B LDCULT ####[facility] (DEFAULT)[address] [facility] [place] [address] Bacteria identified Cx Nom (Unsp spec) NO GROWTH DAY 5 OF 5 Normal [facility] Comment on above: Order Comment: 2 Bot tles (1 Set - consists of 1 Aerobic bottle and 1 Anaerobic bottle) -1st Peripheral DrawFor syringe method draw:If able to obtain adequate sample (20 ml) inoculate anaerobic bottle firstIf inadequate sample obtained (less than 20 ml) inoculate aerobic bottle firstFor vacutainer method draw: Fill aerobic bottle first, then anaerobic Performed By: #### B LDCULT ####Ena [facility] (DEFAULT)[address] [place] [address] CBC,PLATELETSon 05-31-2022 Hematocrit (Bld) [Volume fraction] 33.2 % Low 39.6-48.8 [facility] Comment on above: Performed By: #### H EMOGC ####[facility] (DEFAULT)[address] [place] [address] Hemoglobin (Bld) [Mass/Vol] 10.5 g/dL Low 13.4-16.8 [facility] Comment on above: Performed By: #### H EMOGC ####[facility] (DEFAULT)[address] [place] [address] MCV (RBC) [Entitic vol] 92.2 fL Normal 79.0-94.5 [facility] Comment on above: Performed By: #### H EMOGC ####[facility] (DEFAULT)[address] [place] [address] Mean Cell Hgb 29.2 pg Normal 26.1-33.3 [facility] Comment on above: Performed By: #### H EMOGC ####[facility] (DEFAULT)[address] [place] [address] Mean Cell Hgb Conc 31.6 g/dL Low 31.9-36.5 [facility] Comment on above: Performed By: #### H EMOGC ####[facility] (DEFAULT)[address] [place] [address] Platelet mean volume (Bld) [Entitic vol] 9.0 fL Normal 8.7-12.3 [facility] Comment on above: Performed By: #### H EMOGC ####[facility] (DEFAULT)[address] [facility] [place] [address] Platelets (Bld) [#/Vol] 390 10*3/uL High 146-337 [facility] Comment on above: Performed By: #### H EMOGC ####[facility] (DEFAULT)[address] [facility] [place] [address] RBC (Bld) [#/Vol] 3.60 10*6/uL Low 4.38-5.83 [facility] Comment on above: Performed By: #### H EMOGC ####[facility] (DEFAULT)[address] [facility] [place] [address] RBC Distribution 14.1 % Normal 10.9-14.3 [facility] Comment on above: Performed By: #### H EMO ####[facility] (DEFAULT)[address] [facility] [place] [address] WBC (Bld) [#/Vol] 14.43 10*3/uL High 3.73-10.10 [facility] Comment on above: Performed By: #### H EMOGC ####[facility] (DEFAULT)[address] [facility] [place] [address] CHEM 7 (LYTES,BUN,CREA,GLUC) on 05-31-2022 Anion gap [Moles/Vol] 16 mmol/L Normal 7-17 [facility] Comment on above: Performed By: #### C HM7, MGO ####U [facility] (DEFAULT)[address] [facility] [place] [address] Chloride [Moles/Vol] 113 mmol/L High 98-108 [facility] Comment on above: Performed By: #### C HM7, MGO ####U [facility] (DEFAULT)[address] [facility] [place] [address] CO2 [Moles/Vol] 21 mmol/L Normal 21-31 [facility] Comment on above: Performed By: #### C HM7, MGO ####[facility] (DEFAULT)[address] [place] [address] Creatinine [Mass/Vol] 0.71 mg/dL Normal 0.70-1.30 [facility] Comment on above: Performed By: #### C HM7, MGO ####U [facility] (DEFAULT)[address] [place] [address] eGFR, CKD-EPI, Male > Normal >=60 [facility] Comment on above: Result Comment: Repo rted eGFR is based on the CKD-EPI 2020 equation using creatinine, age, and sex. Performed By: #### C JAYME, MGO ####[facility] (DEFAULT)[address] [place] [address] Glucose [Mass/Vol] 137 mg/dL High 70-99 [facility] Comment on above: Performed By: #### C JAYME, MGO ####U [facility] (DEFAULT)[address] [place] [address] Osmolality [Osmolality] 312 mosm/kg High 278-305 [facility] Comment on above: Performed By: #### C HM7, MGO ####U [facility] (DEFAULT)[address] [place] [address] Potassium [Moles/Vol] 4.1 mmol/L Normal 3.5-5.0 [facility] Comment on above: Performed By: #### Josette HM7, MGO ####U [facility] (DEFAULT)[address] [place] [address] Sodium [Moles/Vol] 146 mmol/L High 135-145 [facility] Comment on above: Performed By: #### C HM7, MGO ####U [facility] (DEFAULT)[address] [place] [address] Urea nitrogen [Mass/Vol] 27 mg/dL High 7-25 [facility] Comment on above: Performed By: #### C HM7, MGO ####U [facility] (DEFAULT)[address] [facility] [place] [address] Urea nitrogen/Creatinine [Mass ratio] 38 mg/mg Normal [facility] Comment on above: Performed By: #### C HM7, MGO ####U [facility] (DEFAULT)[address] [facility] [place] [address] IONIZED CALCIUM, WHOLE BLOOD on 05-31-2022 ICA 4.01 mg/dL Low 4.60-5.30 [facility] Comment on above: Performed By: #### I CA ####[facility] (DEFAULT)[address] [facility] [place] [address] MAGNESIUMon 05-31-2022 Magnesium [Mass/Vol] 2.1 mg/dL Normal 1.6-2.6 [facility] Comment on above: Performed By: #### C HM7, MGO ####U [facility] (DEFAULT)[address] [facility] [place] [address] PHOSPHATE, INORGANICon 05-31 Phosphorous 3.2 mg/dL Normal 2.2-4.6 [facility] Comment on above: Performed By: #### I PB ####[facility] (DEFAULT)[address] [facility] [place] [address] PROCALCITONINon 05-31-2022 Procalcitonin 0.16 ng/mL Normal <0.50 [facility] Comment on above: Result Comment: Proc alcitonin is an FDA-approved assay to help manage antibiotic treatment in patients with sepsis/septic shock and lower respiratory tract infections. Specifically, trending procalcitonin in these situations can be used to reduce the duration of antibiotics. Please refer to the Procalcitonin Guide on the Antimicrobial Stewardship Webpage for more guidance on how to use and trend procalcitonin in various clinical settings. [email or web address]?sourcedoc=/departments/[email or web address]/Documents/[email or web address] itonin.docx&action=default&[email or web address] common cutoffs associated with bacterial infections are as follows.Respiratory tract infections: >0.25 ng/mLSepsis/septic shock: >0.5 ng/mLProcalcitonin should not be used alone as a diagnostic tool, however. All procalcitonin results should be interpreted in association with the patients clinical condition and all laboratory findings. Performed By: #### P ROCAL ####U [facility] (DEFAULT)[address] [facility] [place] [place] [address] URINALYSIS REFLEX TO CULTURE PERFORMABLEon 05-31-2022 Appearance (U) Clear Normal Clear [facility] Comment on above: Performed By: #### U [id number] ####[facility] (DEFAULT)[address] [facility] [place] [address] Bacteria ABSENT Normal ABSENT [facility] Comment on above: Performed By: #### U [id number] ####[facility] (DEFAULT)[address] [facility] [place] [address] Blood Urine Trace Abnormal Negative [facility] Comment on above: Performed By: #### U [id number] ####[facility] (DEFAULT)[address] [facility] [place] [address] Color (U) Yellow Normal Yellow [facility] Comment on above: Performed By: #### U [id number] ####[facility] (DEFAULT)[address] [facility] [place] [address] Glucose Ql (U) Negative Normal Negative [facility] Comment on above: Performed By: #### U [id number] ####[facility] (DEFAULT)[address] [facility] [place] [address] Ketones Ql (U) Negative Normal Negative [facility] Comment on above: Performed By: #### U [id number] ####[facility] (DEFAULT)[address] [facility] [place] [address] Leukocyte esterase Test strip Ql (U) Negative Normal Negative [facility] Comment on above: Performed By: #### U [id number] ####[facility] (DEFAULT)[address] [facility] [place] [address] Mucus Ql (Urine sed) PRESENT Normal [facility] Comment on above: Performed By: #### U [id number] ####U [facility] (DEFAULT)[address] [facility] [place] [address] Nitrites Urine Negative Normal Negative [facility] Comment on above: Performed By: #### U [id number] ####U [facility] (DEFAULT)[address] [place] [address], [place] [address] pH (U) 5.5 [pH] Normal 5.0-7.0 [facility] Comment on above: Performed By: #### U [id number] ####[facility] (DEFAULT)[address] [place] [address], [place] [address] Protein Urine Negative Normal Negative [facility] Comment on above: Performed By: #### U [id number] ####U [facility] (DEFAULT)[address] [place] [address], [place] [address] RBC LM.HPF (Urine sed) [#/Area] /[HPF] Abnormal 0-2 [facility] Comment on above: Performed By: #### U [id number] ####[facility] (DEFAULT)[address] [place] [address] Specific [place] Urine 1.031 Normal 1.001-1.035 [facility] Comment on above: Performed By: #### U [id number] ####[facility] (DEFAULT)[address] [place] [address] Squamous/Epithelial Cells 1/hpf = 1+ Normal 1/hpf = 1+, 2-5/hpf = 2+, 0/hpf = 0+, ABSENT [facility] Comment on above: Performed By: #### U [id number] ####[facility] (DEFAULT)[address] [place] [address] Urobilinogen Urine 1.0 E.U./dL Normal 0.2 E.U/d L, 1.0 E.U/dL [facility] Comment on above: Performed By: #### U [id number] ####U [facility] (DEFAULT)[address] [facility] [place] [address] WBC Urine 0-5 Normal 0-5 [facility] Comment on above: Performed By: #### U [id number] ####U [facility] (DEFAULT)[address] [place] [address], [place] [address] XR CHEST PORTABLEon 05-31-19 XR CHEST PORTABLE Normal [facility] CBC,PLATELETSon 05-30-2022 Hematocrit (Bld) [Volume fraction] 31.6 % Low 39.6-48.8 [facility] Comment on above: Performed By: #### H EMOGC ####[facility] (DEFAULT)[address] [place] [address], [place] [address] Hemoglobin (Bld) [Mass/Vol] 9.8 g/dL Low 13.4-16.8 [facility] Comment on above: Performed By: #### H EMOGC ####U [facility] (DEFAULT)[address] [place] [address], [place] [address] MCV (RBC) [Entitic vol] 94.3 fL Normal 79.0-94.5 [facility] Comment on above: Performed By: #### H EMOGC ####U [facility] (DEFAULT)[address] [place] [address], [place] [address] Mean Cell Hgb 29.3 pg Normal 26.1-33.3 [facility] Comment on above: Performed By: #### H EMOGC ####[facility] (DEFAULT)[address] [facility] [place] [address] Mean Cell Hgb Conc 31.0 g/dL Low 31.9-36.5 [facility] Comment on above: Performed By: #### H EMOGC ####[facility] (DEFAULT)[address] [facility] [place] [address] Platelet mean volume (Bld) [Entitic vol] 9.1 fL Normal 8.7-12.3 [facility] Comment on above: Performed By: #### H EMOGC ####[facility] (DEFAULT)[address] [facility] [place] [address] Platelets (Bld) [#/Vol] 320 10*3/uL Normal 146-337 [facility] Comment on above: Performed By: #### H EMOGC ####[facility] (DEFAULT)[address] [facility] [place] [address] RBC (Bld) [#/Vol] 3.35 10*6/uL Low 4.38-5.83 [facility] Comment on above: Performed By: #### H EMO ####[facility] (DEFAULT)[address] [facility] [place] [address] RBC Distribution 14.3 % Normal 10.9-14.3 [facility] Comment on above: Performed By: #### H EMO ####[facility] (DEFAULT)[address] [facility] [place] [address] WBC (Bld) [#/Vol] 11.92 10*3/uL High 3.73-10.10 [facility] Comment on above: Performed By: #### H EMOGC ####[facility] (DEFAULT)[address] [facility] [place] [address] CHEM 7 (LYTES,BUN,CREA,GLUC) on 05-30-2022 Anion gap [Moles/Vol] 11 mmol/L Normal 7-17 [facility] Comment on above: Performed By: #### C HM7, MGO, IPB ####[facility] (DEFAULT)[address] [facility] [place] [address] Chloride [Moles/Vol] 113 mmol/L High 98-108 [facility] Comment on above: Performed By: #### C HMCrystal MGO, IPB ####[facility] (DEFAULT)[address] [facility] [place] [address] CO2 [Moles/Vol] 25 mmol/L Normal 21-31 [facility] Comment on above: Performed By: #### Josette HM7, MGO, IPB ####[facility] (DEFAULT)[address] [facility] [place] [address] Creatinine [Mass/Vol] 0.67 mg/dL Low 0.70-1.30 [facility] Comment on above: Performed By: #### Josette DELACRUZ MGO, IPB ####[facility]na [facility] (DEFAULT)[address] [facility] [place] [address] eGFR, CKD-EPI, Male > Normal >=60 [facility] Comment on above: Result Comment: Repo rted eGFR is based on the CKD-EPI 2020 equation using creatinine, age, and sex. Performed By: #### C JAYME MGO, IPB ####[facility] (DEFAULT)[address] [facility] [place] [address] Glucose [Mass/Vol] 141 mg/dL High 70-99 [facility] Comment on above: Performed By: #### Josette HM7 MGO, IPB ####[facility] (DEFAULT)[address] [facility] [place] [address] Osmolality [Osmolality] 311 mosm/kg High 278-305 [facility] Comment on above: Performed By: #### Josette HM7, MGO, IPB ####U [facility] (DEFAULT)[address] [facility] [place] [address] Potassium [Moles/Vol] 4.1 mmol/L Normal 3.5-5.0 [facility] Comment on above: Performed By: #### Josette HM7, MGO, IPB ####[facility] (DEFAULT)[address] [place] [address] Sodium [Moles/Vol] 145 mmol/L Normal 135-145 [facility] Comment on above: Performed By: #### LACEY VALDERRAMA, IPB ####[facility] (DEFAULT)[address] [place] [address] Urea nitrogen [Mass/Vol] 31 mg/dL High 7-25 [facility] Comment on above: Performed By: #### LACEY VALDERRAMA, IPB ####[facility]na [facility] (DEFAULT)[address] [facility] [place] [address] Urea nitrogen/Creatinine [Mass ratio] 46 mg/mg Normal [facility] Comment on above: Performed By: #### LACEY VALDERRAMA, IPB ####Ena [facility] (DEFAULT)[address] [facility] [place] [address] IONIZED CALCIUM, WHOLE BLOOD on 05-30-2022 ICA 4.45 mg/dL Low 4.60-5.30 [facility] Comment on above: Performed By: #### I CA ####[facility] (DEFAULT)[address] [facility] [place] [address] MAGNESIUMon 05-30-2022 Magnesium [Mass/Vol] 2.1 mg/dL Normal 1.6-2.6 [facility] Comment on above: Performed By: #### LACEY VALDERRAMA, IPB ####[facility] (DEFAULT)[address] [facility] [place] [address] PHOSPHATE, INORGANICon 05-30 Phosphorous 3.8 mg/dL Normal 2.2-4.6 [facility] Comment on above: Performed By: #### Josette DELACRUZ MGAnkit, IPB ####Ena [facility] (DEFAULT)[address] [place] [address] SODIUMon 05-30-2022 Sodium [Moles/Vol] 148 mmol/L High 135-145 [facility] Comment on above: Order Comment: While on HTS Performed By: #### N AO ####[facility] (DEFAULT)[address] [place] [address] AMYLASEon 05-29-2022 Amylase [Catalytic activity/Vol] 53 U/L Normal 20-103 [facility] Comment on above: Performed By: #### A MYB, IPB, HFP, MGO, LIPA, CHM7 ####[facility] (DEFAULT)[address] [place] [address] CBC,PLATELETSon 05-29-2022 Hematocrit (Bld) [Volume fraction] 32.5 % Low 39.6-48.8 [facility] Comment on above: Performed By: #### H EMOGC ####[facility] (DEFAULT)[address] [facility] [place] [address] Hemoglobin (Bld) [Mass/Vol] 10.3 g/dL Low 13.4-16.8 [facility] Comment on above: Performed By: #### H EMOGC ####[facility] (DEFAULT)[address] [facility] [place] [address] MCV (RBC) [Entitic vol] 93.7 fL Normal 79.0-94.5 [facility] Comment on above: Performed By: #### H EMOGC ####[facility] (DEFAULT)[address] [place] [address] Mean Cell Hgb 29.7 pg Normal 26.1-33.3 [facility] Comment on above: Performed By: #### H EMOGC ####[facility] (DEFAULT)[address] [place] [address] Mean Cell Hgb Conc 31.7 g/dL Low 31.9-36.5 [facility] Comment on above: Performed By: #### H EMOGC ####[facility] (DEFAULT)[address] [place] [address] Platelet mean volume (Bld) [Entitic vol] 9.1 fL Normal 8.7-12.3 [facility] Comment on above: Performed By: #### H EMO ####[facility] (DEFAULT)[address] [place] [address] Platelets (Bld) [#/Vol] 357 10*3/uL High 146-337 [facility] Comment on above: Performed By: #### H EMOGC ####[facility] (DEFAULT)[address] [place] [address] RBC (Bld) [#/Vol] 3.47 10*6/uL Low 4.38-5.83 [facility] Comment on above: Performed By: #### H EMOGC ####[facility] (DEFAULT)[address] [place] [address] RBC Distribution 14.2 % Normal 10.9-14.3 [facility] Comment on above: Performed By: #### H EMOGC ####[facility] (DEFAULT)[address] [place] [address] WBC (Bld) [#/Vol] 13.27 10*3/uL High 3.73-10.10 [facility] Comment on above: Performed By: #### H EMOGC ####[facility] (DEFAULT)[address] [place] [address] CHEM 7 (LYTES,BUN,CREA,GLUC) on 05-29-2022 Anion gap [Moles/Vol] 14 mmol/L Normal 7-17 [facility] Comment on above: Performed By: #### A MYB, IPB, HFP, MGO, LIPA, CHM7 ####[facility] (DEFAULT)[address] [place] [address] Chloride [Moles/Vol] 116 mmol/L High 98-108 [facility] Comment on above: Performed By: #### A MYB, IPB, HFP, MGO, LIPA, CHM7 ####[facility] (DEFAULT)[address] [facility] [place] [address] CO2 [Moles/Vol] 23 mmol/L Normal 21-31 [facility] Comment on above: Performed By: #### A MYB, IPB, HFP, MGO, LIPA, CHM7 ####[facility] (DEFAULT)[address] [facility] [place] [address] Creatinine [Mass/Vol] 0.61 mg/dL Low 0.70-1.30 [facility] Comment on above: Performed By: #### A MYB, IPB, HFP, MGO, LIPA, CHM7 ####[facility] (DEFAULT)[address] [facility] [place] [address] eGFR, CKD-EPI, Male > Normal >=60 [facility] Comment on above: Result Comment: Repo rted eGFR is based on the CKD-EPI 2020 equation using creatinine, age, and sex. Performed By: #### A MYB, IPB, HFP, MGO, LIPA, CHM7 ####[facility] (DEFAULT)[address] [facility] [place] [address] Glucose [Mass/Vol] 149 mg/dL High 70-99 [facility] Comment on above: Performed By: #### A MYB, IPB, HFP, MGO, LIPA, CHM7 ####[facility] (DEFAULT)[address] [place] [address], [place] [address] Osmolality [Osmolality] 315 mosm/kg High 278-305 [facility] Comment on above: Performed By: #### A MYB, IPB, HFP, MGO, LIPA, CHM7 ####[facility] (DEFAULT)[address] [facility] [place] [address] Potassium [Moles/Vol] 3.6 mmol/L Normal 3.5-5.0 [facility] Comment on above: Performed By: #### A MYB, IPB, HFP, MGO, LIPA, CHM7 ####[facility] (DEFAULT)[address] [facility] [place] [address] Sodium [Moles/Vol] 149 mmol/L High 135-145 [facility] Comment on above: Performed By: #### A MYB, IPB, HFP, MGO, LIPA, CHM7 ####[facility] (DEFAULT)[address] [facility] [place] [address] Urea nitrogen [Mass/Vol] 22 mg/dL Normal 7-25 [facility] Comment on above: Performed By: #### A MYB, IPB, HFP, MGO, LIPA, CHM7 ####[facility] (DEFAULT)[address] [facility] [place] [address] Urea nitrogen/Creatinine [Mass ratio] 36 mg/mg Normal [facility] Comment on above: Performed By: #### A MYB, IPB, HFP, MGO, LIPA, CHM7 ####[facility] (DEFAULT)[address] [facility] [place] [address] HEPATIC FUNCTION PANELon Albumin [Mass/Vol] 3.3 g/dL Low 3.5-5.0 [facility] Comment on above: Performed By: #### A MYB, IPB, HFP, MGO, LIPA, CHM7 ####[facility] (DEFAULT)[address] [facility] [place] [address] ALP [Catalytic activity/Vol] 60 U/L Normal 32-126 [facility] Comment on above: Performed By: #### A MYB, IPB, HFP, MGO, LIPA, CHM7 ####[facility] (DEFAULT)[address] [facility] [place] [address] ALT [Catalytic activity/Vol] 54 U/L High 10-52 [facility] Comment on above: Performed By: #### A MYB, IPB, HFP, MGO, LIPA, CHM7 ####[facility] (DEFAULT)[address] [place] [address] AST [Catalytic activity/Vol] 49 U/L High 10-39 [facility] Comment on above: Performed By: #### A MYB, IPB, HFP, MGO, LIPA, CHM7 ####[facility] (DEFAULT)[address] [place] [address] Bilirubin [Mass/Vol] 0.5 mg/dL Normal <1.5 [facility] Comment on above: Performed By: #### A MYB, IPB, HFP, MGO, LIPA, CHM7 ####[facility] (DEFAULT)[address] [place] [address] Bilirubin.indirect [Mass/Vol] 0.1 mg/dL Normal <0.3 [facility] Comment on above: Performed By: #### A MYB, IPB, HFP, MGO, LIPA, CHM7 ####[facility] (DEFAULT)[address] [place] [address] Protein [Mass/Vol] 5.9 g/dL Low 6.4-8.3 [facility] Comment on above: Performed By: #### A MYB, IPB, HFP, MGO, LIPA, CHM7 ####[facility] (DEFAULT)[address] [place] [address] IONIZED CALCIUM, WHOLE BLOOD on 05-29-2022 ICA 4.32 mg/dL Low 4.60-5.30 [facility] Comment on above: Performed By: #### I CA ####[facility] (DEFAULT)[address] [place] [address] LIPASEon 05-29-2022 Lipase [Catalytic activity/Vol] 64 U/L Normal -82 [facility] Comment on above: Performed By: #### A MYB, IPB, HFP, MGO, LIPA, CHM7 ####[facility] (DEFAULT)[address] [place] [address] MAGNESIUMon 05-29-2022 Magnesium [Mass/Vol] 2.0 mg/dL Normal 1.6-2.6 [facility] Comment on above: Performed By: #### A MYB, IPB, HFP, MGO, LIPA, CHM7 ####[facility] (DEFAULT)[address] [facility] [place] [address] PHOSPHATE, INORGANICon 05-29 Phosphorous 2.8 mg/dL Normal 2.2-4.6 [facility] Comment on above: Performed By: #### A MYB, IPB, HFP, MGO, LIPA, CHM7 ####[facility] (DEFAULT)[address] [place] [address] PROCALCITONINon 05-29-2022 Procalcitonin 0.13 ng/mL Normal <0.50 [facility] Comment on above: Result Comment: Proc alcitonin is an FDA-approved assay to help manage antibiotic treatment in patients with sepsis/septic shock and lower respiratory tract infections. Specifically, trending procalcitonin in these situations can be used to reduce the duration of antibiotics. Please refer to the Procalcitonin Guide on the Antimicrobial Stewardship Webpage for more guidance on how to use and trend procalcitonin in various clinical settings. [email or web address]?sourcedoc=/[email or web address]/[email or web address]/Documents/[email or web address] [email or web address]&action=[email or web address] common cutoffs associated with bacterial infections are as follows.Respiratory tract infections: >0.25 ng/mLSepsis/septic shock: >0.5 ng/mLProcalcitonin should not be used alone as a diagnostic tool, however. All procalcitonin results should be interpreted in association with the patients clinical condition and all laboratory findings. Performed By: #### P ROCAL ANIL ####[facility] (DEFAULT)[address] [facility] [place] [address] SODIUMon 05-29-2022 Sodium [Moles/Vol] 148 mmol/L High 135-145 [facility] Comment on above: Order Comment: While on HTS Performed By: #### N AO ####[facility] (DEFAULT)[address] [place] [address] Sodium [Moles/Vol] 149 mmol/L High 135-145 [facility] Comment on above: Order Comment: While on HTS Performed By: #### N AO ####[facility] (DEFAULT)[address] [place] [address] Sodium [Moles/Vol] 151 mmol/L High 135-145 [facility] Comment on above: Order Comment: While on HTS Performed By: #### P ANIL FUENTES ####[facility] (DEFAULT)[address] [place] [address] CBC,PLATELETSon 05-28-2022 Hematocrit (Bld) [Volume fraction] 28.9 % Low 39.6-48.8 [facility] Comment on above: Performed By: #### H EMO ####[facility] (DEFAULT)[address] [place] [address] Hemoglobin (Bld) [Mass/Vol] 9.2 g/dL Low 13.4-16.8 [facility] Comment on above: Performed By: #### H EMOGC ####[facility] (DEFAULT)[address] [place] [address] MCV (RBC) [Entitic vol] 92.3 fL Normal 79.0-94.5 [facility] Comment on above: Performed By: #### H EMOGC ####[facility] (DEFAULT)[address] [place] [address] Mean Cell Hgb 29.4 pg Normal 26.1-33.3 [facility] Comment on above: Performed By: #### H EMOGC ####[facility] (DEFAULT)[address] [place] [address] Mean Cell Hgb Conc 31.8 g/dL Low 31.9-36.5 [facility] Comment on above: Performed By: #### H EMOGC ####[facility] (DEFAULT)[address] [facility] [place] [address] Platelet mean volume (Bld) [Entitic vol] 9.3 fL Normal 8.7-12.3 [facility] Comment on above: Performed By: #### H EMOGC ####[facility] (DEFAULT)[address] [facility] [place] [address] Platelets (Bld) [#/Vol] 288 10*3/uL Normal 146-337 [facility] Comment on above: Performed By: #### H EMOGC ####[facility] (DEFAULT)[address] [facility] [place] [address] RBC (Bld) [#/Vol] 3.13 10*6/uL Low 4.38-5.83 [facility] Comment on above: Performed By: #### H EMOGC ####[facility] (DEFAULT)[address] [facility] [place] [address] RBC Distribution 14.2 % Normal 10.9-14.3 [facility] Comment on above: Performed By: #### H EMOGC ####[facility] (DEFAULT)[address] [facility] [place] [address] WBC (Bld) [#/Vol] 12.21 10*3/uL High 3.73-10.10 [facility] Comment on above: Performed By: #### H EMOGC ####[facility] (DEFAULT)[address] [facility] [place] [address] CHEM 7 (LYTES,BUN,CREA,GLUC) on 05-28-2022 Anion gap [Moles/Vol] 10 mmol/L Normal 7-17 [facility] Comment on above: Performed By: #### M GO, IPB, CHM7 ####[facility] (DEFAULT)[address] [place] [address] Chloride [Moles/Vol] 118 mmol/L High 98-108 [facility] Comment on above: Performed By: #### DAYANA PRATT CHM7 ####[facility] (DEFAULT)[address] [facility] [place] [address] CO2 [Moles/Vol] 29 mmol/L Normal 21-31 [facility] Comment on above: Performed By: #### DAYANA PRATT CHM7 ####[facility] (DEFAULT)[address] [facility] [place] [address] Creatinine [Mass/Vol] 0.66 mg/dL Low 0.70-1.30 [facility] Comment on above: Performed By: #### DAYANA PRATT CHM7 ####[facility] (DEFAULT)[address] [facility] [place] [address] eGFR, CKD-EPI, Male > Normal >=60 [facility] Comment on above: Result Comment: Repo rted eGFR is based on the CKD-EPI 2020 equation using creatinine, age, and sex. Performed By: #### DAYANA PRATT CHM7 ####[facility] (DEFAULT)[address] [facility] [place] [address] Glucose [Mass/Vol] 157 mg/dL High 70-99 [facility] Comment on above: Performed By: #### DAYANA PRATT CHM7 ####[facility] (DEFAULT)[address] [place] [address], [place] [address] Osmolality [Osmolality] 324 mosm/kg High 278-305 [facility] Comment on above: Performed By: #### DAYANA PRATT CHM7 ####[facility] (DEFAULT)[address] [facility] [place] [address] Potassium [Moles/Vol] 3.6 mmol/L Normal 3.5-5.0 [facility] Comment on above: Performed By: #### DAYANA PRATT CHM7 ####[facility] (DEFAULT)[address] [place] [address] Sodium [Moles/Vol] 153 mmol/L High 135-145 [facility] Comment on above: Performed By: #### DAYANA PRATT, CHM7 ####[facility] (DEFAULT)[address] [place] [address] Urea nitrogen [Mass/Vol] 23 mg/dL Normal 7-25 [facility] Comment on above: Performed By: #### M DAYANA PALUMBO, CHM7 ####[facility] (DEFAULT)[address] [place] [address] Urea nitrogen/Creatinine [Mass ratio] 35 mg/mg Normal [facility] Comment on above: Performed By: #### DAYANA PRATT, CHM7 ####[facility] (DEFAULT)[address] [place] [address] CT HEAD WITHOUT CONTRASTon 0 05-28-2022 CT HEAD WITHOUT CONTRAST Normal [facility] IONIZED CALCIUM, WHOLE BLOOD on 05-28-2022 ICA 4.71 mg/dL Normal 4.60-5.30 [facility] Comment on above: Performed By: #### I CA ####[facility] (DEFAULT)[address] [place] [address] MAGNESIUMon 05-28-2022 Magnesium [Mass/Vol] 2.1 mg/dL Normal 1.6-2.6 [facility] Comment on above: Performed By: #### M DAYANA PALUMBO, CHM7 ####[facility] (DEFAULT)[address] [place] [address] PHOSPHATE, INORGANICon 05-28 Phosphorous 3.3 mg/dL Normal 2.2-4.6 [facility] Comment on above: Performed By: #### DAYANA PRATT, CHM7 ####[facility] (DEFAULT)[address] [place] [address] SODIUMon 05-28-2022 Sodium [Moles/Vol] 152 mmol/L High 135-145 [facility] Comment on above: Order Comment: While on HTS Performed By: #### N AO ####[facility] (DEFAULT)[address] [place] [address] Sodium [Moles/Vol] 154 mmol/L High 135-145 [facility] Comment on above: Order Comment: While on HTS Performed By: #### N AO ####[facility] (DEFAULT)[address] [facility] [place] [address] Sodium [Moles/Vol] 153 mmol/L High 135-145 [facility] Comment on above: Order Comment: While on HTS Performed By: #### N AO ####[facility] (DEFAULT)[address] [facility] [place] [address] BLOOD CULTUREon 05-27-2022 Bacteria identified Cx Nom (Unsp spec) NO GROWTH DAY 5 OF 5 Normal [facility] Comment on above: Order Comment: 2 Bot tles (1 Set - consists of 1 Aerobic bottle and 1 Anaerobic bottle) -1st Peripheral DrawFor syringe method draw:If able to obtain adequate sample (20 ml) inoculate anaerobic bottle firstIf inadequate sample obtained (less than 20 ml) inoculate aerobic bottle firstFor vacutainer method draw: Fill aerobic bottle first, then anaerobicResults may be compromised due to volume of BACT\ALERT bottle exceeding 10mLs . The optimal blood volume is 8-10 mls per aerobic/anaerobic blood culture bottle. Performed By: #### B LDCULT ####[facility] (DEFAULT)[address] [facility] [place] [address] Bacteria identified Cx Nom (Unsp spec) NO GROWTH DAY 5 OF 5 Normal [facility] Comment on above: Order Comment: 2 Bot tles (1 Set - consists of 1 Aerobic bottle and 1 Anaerobic bottle) -1st Peripheral DrawFor syringe method draw:If able to obtain adequate sample (20 ml) inoculate anaerobic bottle firstIf inadequate sample obtained (less than 20 ml) inoculate aerobic bottle firstFor vacutainer method draw: Fill aerobic bottle first, then anaerobic Performed By: #### B LDCULT ####[facility] (DEFAULT)[address] [facility] [address] CBC,PLATELETSon 05-27-2022 Hematocrit (Bld) [Volume fraction] 28.3 % Low 39.6-48.8 [facility] Comment on above: Performed By: #### H EMOGC ####[facility] (DEFAULT)[address] [facility] [place] [address] Hemoglobin (Bld) [Mass/Vol] 8.9 g/dL Low 13.4-16.8 [facility] Comment on above: Performed By: #### H EMOGC ####[facility] (DEFAULT)[address] [facility] [place] [address] MCV (RBC) [Entitic vol] 91.3 fL Normal 79.0-94.5 [facility] Comment on above: Performed By: #### H EMOGC ####[facility] (DEFAULT)[address] [facility] [place] [address] Mean Cell Hgb 28.7 pg Normal 26.1-33.3 [facility] Comment on above: Performed By: #### H EMOGC ####[facility] (DEFAULT)[address] [facility] [place] [address] Mean Cell Hgb Conc 31.4 g/dL Low 31.9-36.5 [facility] Comment on above: Performed By: #### H EMOGC ####[facility] (DEFAULT)[address] [facility] [place] [address] Platelet mean volume (Bld) [Entitic vol] 9.1 fL Normal 8.7-12.3 [facility] Comment on above: Performed By: #### H EMOGC ####[facility] (DEFAULT)[address] [facility] [place] [address] Platelets (Bld) [#/Vol] 260 10*3/uL Normal 146-337 [facility] Comment on above: Performed By: #### H EMO ####[facility] (DEFAULT)[address] [facility] [place] [address] RBC (Bld) [#/Vol] 3.10 10*6/uL Low 4.38-5.83 [facility] Comment on above: Performed By: #### H EMO ####[facility] (DEFAULT)[address] [facility] [place] [address] RBC Distribution 13.8 % Normal 10.9-14.3 [facility] Comment on above: Performed By: #### H EMO ####[facility] (DEFAULT)[address] [facility] [place] [address] WBC (Bld) [#/Vol] 12.06 10*3/uL High 3.73-10.10 [facility] Comment on above: Performed By: #### H EMO ####[facility] (DEFAULT)[address] [facility] [place] [address] CHEM 7 (LYTES,BUN,CREA,GLUC) on 05-27-2022 Anion gap [Moles/Vol] 11 mmol/L Normal 7-17 [facility] Comment on above: Performed By: #### I PB, CHM7, CKB, MGO ####[facility] (DEFAULT)[address] [facility] [place] [address] Chloride [Moles/Vol] 120 mmol/L High 98-108 [facility] Comment on above: Performed By: #### I PB, CHM7, CKB, MGO ####[facility] (DEFAULT)[address] [facility] [place] [address] CO2 [Moles/Vol] 29 mmol/L Normal 21-31 [facility] Comment on above: Performed By: #### I PB, CHM7, CKB, MGO ####[facility] (DEFAULT)[address] [facility] [place] [address] Creatinine [Mass/Vol] 0.58 mg/dL Low 0.70-1.30 [facility] Comment on above: Performed By: #### I PB, CHM7, CKB, MGO ####[facility] (DEFAULT)[address] [facility] [address] eGFR, CKD-EPI, Male > Normal >=60 [facility] Comment on above: Result Comment: Repo rted eGFR is based on the CKD-EPI 2020 equation using creatinine, age, and sex. Performed By: #### I PB, CHM7, CKB, MGO ####[facility] (DEFAULT)[address] [facility] [place] [address] Glucose [Mass/Vol] 136 mg/dL High 70-99 [facility] Comment on above: Performed By: #### I PB, CHM7, CKB, MGO ####[facility] (DEFAULT)[address] [facility] [place] [place] [address] Osmolality [Osmolality] 328 mosm/kg High 278-305 [facility] Comment on above: Performed By: #### I PB, CHM7, CKB, MGO ####[facility] (DEFAULT)[address] [facility] [place] [address] Potassium [Moles/Vol] 3.4 mmol/L Low 3.5-5.0 [facility] Comment on above: Performed By: #### I PB, CHM7, CKB, MGO ####[facility] (DEFAULT)[address] [facility] [place] [address] Sodium [Moles/Vol] 157 mmol/L High 135-145 [facility] Comment on above: Performed By: #### I PB, CHM7, CKB, MGO ####[facility] (DEFAULT)[address] [facility] [place] [address] Urea nitrogen [Mass/Vol] 19 mg/dL Normal 7-25 [facility] Comment on above: Performed By: #### I PB, CHM7, CKB, MGO ####[facility] (DEFAULT)[address] [place] [address] Urea nitrogen/Creatinine [Mass ratio] 33 mg/mg Normal [facility] Comment on above: Performed By: #### I PB, CHM7, CKB, MGO ####[facility] (DEFAULT)[address] [place] [address] CKon 05-27-2022 CK [Catalytic activity/Vol] 354 U/L High 30-220 [facility] Comment on above: Order Comment: While on Propofol. Performed By: #### I PB, CHM7, CKB, MGO ####[facility] (DEFAULT)[address] [place] [address] IMMUNOCOMPROMISED RESPIRATOR Y PANELon 05-27-2022 Adenovirus - Pcr Not detected Normal Not Detected [facility] Comment on above: Order Comment: Viral transport media (red screw top with red liquid media) or respiratory fluids or tissue - Collection must be done while wearing N-95 mask, eye protection, gown and gloves. Please label ALL specimens as 2019-nCoV rule out and deliver by handResults should not be used in conjunction with other clinical and laboratory findings. This result does not rule out co-infections with pathogens that are not screened for by the Respiratory Panel(RP). This RP assay was performed using a Film Array multiplex nucleic acid assay. This test was developed and its performance characteristics determined by [facility]. It has not been cleared or approved by the FDA. The laboratory is required under CLIA as qualified to perform high-complexity testing. This test is used for clinical purposes. It should not be regarded as investigational or for research. Performed By: #### I CRESP ####[facility] (DEFAULT)[address] [place] [address] Bordetella Parapertussis Not detected Normal Not Detected [facility] Comment on above: Order Comment: Viral transport media (red screw top with red liquid media) or respiratory fluids or tissue - Collection must be done while wearing N-95 mask, eye protection, gown and gloves. Please label ALL specimens as 2019-nCoV rule out and deliver by handResults should not be used in conjunction with other clinical and laboratory findings. This result does not rule out co-infections with pathogens that are not screened for by the Respiratory Panel(RP). This RP assay was performed using a Film Array multiplex nucleic acid assay. This test was developed and its performance characteristics determined by [facility]. It has not been cleared or approved by the FDA. The laboratory is required under CLIA as qualified to perform high-complexity testing. This test is used for clinical purposes. It should not be regarded as investigational or for research. Performed By: #### I CRESP ####[facility] (DEFAULT)[address] [place] [address] Bordetella Pertussis Not detected Normal Not Detected [facility] Comment on above: Order Comment: Viral transport media (red screw top with red liquid media) or respiratory fluids or tissue - Collection must be done while wearing N-95 mask, eye protection, gown and gloves. Please label ALL specimens as 2019-nCoV rule out and deliver by handResults should not be used in conjunction with other clinical and laboratory findings. This result does not rule out co-infections with pathogens that are not screened for by the Respiratory Panel(RP). This RP assay was performed using a Film Array multiplex nucleic acid assay. This test was developed and its performance characteristics determined by [facility]. It has not been cleared or approved by the FDA. The laboratory is required under CLIA as qualified to perform high-complexity testing. This test is used for clinical purposes. It should not be regarded as investigational or for research. Performed By: #### I CRESP ####[facility] (DEFAULT)[address] [place] [address] Chlamydia Pneumoniae Not detected Normal Not Detected [facility] Comment on above: Order Comment: Viral transport media (red screw top with red liquid media) or respiratory fluids or tissue - Collection must be done while wearing N-95 mask, eye protection, gown and gloves. Please label ALL specimens as 2019-nCoV rule out and deliver by handResults should not be used in conjunction with other clinical and laboratory findings. This result does not rule out co-infections with pathogens that are not screened for by the Respiratory Panel(RP). This RP assay was performed using a Film Array multiplex nucleic acid assay. This test was developed and its performance characteristics determined by [facility]. It has not been cleared or approved by the FDA. The laboratory is required under CLIA as qualified to perform high-complexity testing. This test is used for clinical purposes. It should not be regarded as investigational or for research. Performed By: #### I CRESP ####[facility] (DEFAULT)[address] [place] [address] Coronavirus 229E Not detected Normal Not Detected [facility] Comment on above: Order Comment: Viral transport media (red screw top with red liquid media) or respiratory fluids or tissue - Collection must be done while wearing N-95 mask, eye protection, gown and gloves. Please label ALL specimens as 2019-nCoV rule out and deliver by handResults should not be used in conjunction with other clinical and laboratory findings. This result does not rule out co-infections with pathogens that are not screened for by the Respiratory Panel(RP). This RP assay was performed using a Film Array multiplex nucleic acid assay. This test was developed and its performance characteristics determined by [facility]. It has not been cleared or approved by the FDA. The laboratory is required under CLIA as qualified to perform high-complexity testing. This test is used for clinical purposes. It should not be regarded as investigational or for research. Performed By: #### I CRESP ####[facility] (DEFAULT)[address] [place] [address] Coronavirus Hku1 Not detected Normal Not Detected [facility] Comment on above: Order Comment: Viral transport media (red screw top with red liquid media) or respiratory fluids or tissue - Collection must be done while wearing N-95 mask, eye protection, gown and gloves. Please label ALL specimens as 2019-nCoV rule out and deliver by handResults should not be used in conjunction with other clinical and laboratory findings. This result does not rule out co-infections with pathogens that are not screened for by the Respiratory Panel(RP). This RP assay was performed using a Film Array multiplex nucleic acid assay. This test was developed and its performance characteristics determined by The Clinical Microbiology Laboratory at [facility]. It has not been cleared or approved by the FDA. The laboratory is required under CLIA as qualified to perform high-complexity testing. This test is used for clinical purposes. It should not be regarded as investigational or for research. Performed By: #### I CRESP ####[facility] (DEFAULT)[address] [address] Coronavirus Nl63 Not detected Normal Not Detected [facility] Comment on above: Order Comment: Viral transport media (red screw top with red liquid media) or respiratory fluids or tissue - Collection must be done while wearing N-95 mask, eye protection, gown and gloves. Please label ALL specimens as 2019-nCoV rule out and deliver by handResults should not be used in conjunction with other clinical and laboratory findings. This result does not rule out co-infections with pathogens that are not screened for by the Respiratory Panel(RP). This RP assay was performed using a Film Array multiplex nucleic acid assay. This test was developed and its performance characteristics determined by The Clinical Microbiology Laboratory at [facility]. It has not been cleared or approved by the FDA. The laboratory is required under CLIA as qualified to perform high-complexity testing. This test is used for clinical purposes. It should not be regarded as investigational or for research. Performed By: #### I CRESP ####[facility] (DEFAULT)[address] [place] [address] Coronavirus Oc43 Not detected Normal Not Detected [facility] Comment on above: Order Comment: Viral transport media (red screw top with red liquid media) or respiratory fluids or tissue - Collection must be done while wearing N-95 mask, eye protection, gown and gloves. Please label ALL specimens as 2019-nCoV rule out and deliver by handResults should not be used in conjunction with other clinical and laboratory findings. This result does not rule out co-infections with pathogens that are not screened for by the Respiratory Panel(RP). This RP assay was performed using a Film Array multiplex nucleic acid assay. This test was developed and its performance characteristics determined by The Clinical Microbiology Laboratory at [facility]. It has not been cleared or approved by the FDA. The laboratory is required under CLIA as qualified to perform high-complexity testing. This test is used for clinical purposes. It should not be regarded as investigational or for research. Performed By: #### I CRESP ####[facility] (DEFAULT)[address] [place] [id number] Influenza A - Pcr Not detected Normal Not Detected [facility] Comment on above: Order Comment: Viral transport media (red screw top with red liquid media) or respiratory fluids or tissue - Collection must be done while wearing N-95 mask, eye protection, gown and gloves. Please label ALL specimens as 2019-nCoV rule out and deliver by handResults should not be used in conjunction with other clinical and laboratory findings. This result does not rule out co-infections with pathogens that are not screened for by the Respiratory Panel(RP). This RP assay was performed using a Film Array multiplex nucleic acid assay. This test was developed and its performance characteristics determined by The Clinical Microbiology Laboratory at [facility]. It has not been cleared or approved by the FDA. The laboratory is required under CLIA as qualified to perform high-complexity testing. This test is used for clinical purposes. It should not be regarded as investigational or for research. Performed By: #### I CRESP ####[facility] (DEFAULT)[address] [place] [id number] Influenza B - Pcr Not detected Normal Not Detected [facility] Comment on above: Order Comment: Viral transport media (red screw top with red liquid media) or respiratory fluids or tissue - Collection must be done while wearing N-95 mask, eye protection, gown and gloves. Please label ALL specimens as 2019-nCoV rule out and deliver by handResults should not be used in conjunction with other clinical and laboratory findings. This result does not rule out co-infections with pathogens that are not screened for by the Respiratory Panel(RP). This RP assay was performed using a Film Array multiplex nucleic acid assay. This test was developed and its performance characteristics determined by The Clinical Microbiology Laboratory at [facility]. It has not been cleared or approved by the FDA. The laboratory is required under CLIA as qualified to perform high-complexity testing. This test is used for clinical purposes. It should not be regarded as investigational or for research. Performed By: #### I CRESP ####[facility] (DEFAULT)[address] [place] [address] Metapneumovirus - Pcr Not detected Normal Not Detected [facility] Comment on above: Order Comment: Viral transport media (red screw top with red liquid media) or respiratory fluids or tissue - Collection must be done while wearing N-95 mask, eye protection, gown and gloves. Please label ALL specimens as 2019-nCoV rule out and deliver by handResults should not be used in conjunction with other clinical and laboratory findings. This result does not rule out co-infections with pathogens that are not screened for by the Respiratory Panel(RP). This RP assay was performed using a Film Array multiplex nucleic acid assay. This test was developed and its performance characteristics determined by The Clinical [facility]biology Laboratory at [facility]. It has not been cleared or approved by the FDA. The laboratory is required under CLIA as qualified to perform high-complexity testing. This test is used for clinical purposes. It should not be regarded as investigational or for research. Performed By: #### I CRESP ####[facility] (DEFAULT)[address] [place] [address] Mycoplasma Pneumoniae Not detected Normal Not Detected [facility] Comment on above: Order Comment: Viral transport media (red screw top with red liquid media) or respiratory fluids or tissue - Collection must be done while wearing N-95 mask, eye protection, gown and gloves. Please label ALL specimens as 2019-nCoV rule out and deliver by handResults should not be used in conjunction with other clinical and laboratory findings. This result does not rule out co-infections with pathogens that are not screened for by the Respiratory Panel(RP). This RP assay was performed using a Film Array multiplex nucleic acid assay. This test was developed and its performance characteristics determined by The Clinical [facility]biology [facility] at [facility]. It has not been cleared or approved by the FDA. The laboratory is required under CLIA as qualified to perform high-complexity testing. This test is used for clinical purposes. It should not be regarded as investigational or for research. Performed By: #### I CRESP ####[facility] (DEFAULT)[address] [place] [address] Parainfluenza 1 - Pcr Not detected Normal Not Detected [facility] Comment on above: Order Comment: Viral transport media (red screw top with red liquid media) or respiratory fluids or tissue - Collection must be done while wearing N-95 mask, eye protection, gown and gloves. Please label ALL specimens as 2019-nCoV rule out and deliver by handResults should not be used in conjunction with other clinical and laboratory findings. This result does not rule out co-infections with pathogens that are not screened for by the Respiratory Panel(RP). This RP assay was performed using a Film Array multiplex nucleic acid assay. This test was developed and its performance characteristics determined by The Clinical [facility]biology [facility] at [facility]. It has not been cleared or approved by the FDA. The laboratory is required under CLIA as qualified to perform high-complexity testing. This test is used for clinical purposes. It should not be regarded as investigational or for research. Performed By: #### I CRESP ####[facility] (DEFAULT)[address] [place] [address] Parainfluenza 2 - Pcr Not detected Normal Not Detected [facility] Comment on above: Order Comment: Viral transport media (red screw top with red liquid media) or respiratory fluids or tissue - Collection must be done while wearing N-95 mask, eye protection, gown and gloves. Please label ALL specimens as 2019-nCoV rule out and deliver by handResults should not be used in conjunction with other clinical and laboratory findings. This result does not rule out co-infections with pathogens that are not screened for by the Respiratory Panel(RP). This RP assay was performed using a Film Array multiplex nucleic acid assay. This test was developed and its performance characteristics determined by The Clinical [facility]biology [facility] at [facility]. It has not been cleared or approved by the FDA. The laboratory is required under CLIA as qualified to perform high-complexity testing. This test is used for clinical purposes. It should not be regarded as investigational or for research. Performed By: #### I CRESP ####[facility] (DEFAULT)[address] [place] [address] Parainfluenza 3 - Pcr Not detected Normal Not Detected [facility] Comment on above: Order Comment: Viral transport media (red screw top with red liquid media) or respiratory fluids or tissue - Collection must be done while wearing N-95 mask, eye protection, gown and gloves. Please label ALL specimens as 2019-nCoV rule out and deliver by handResults should not be used in conjunction with other clinical and laboratory findings. This result does not rule out co-infections with pathogens that are not screened for by the Respiratory Panel(RP). This RP assay was performed using a Film Array multiplex nucleic acid assay. This test was developed and its performance characteristics determined by The Clinical [facility]biology [facility] at [facility]. It has not been cleared or approved by the FDA. The laboratory is required under CLIA as qualified to perform high-complexity testing. This test is used for clinical purposes. It should not be regarded as investigational or for research. Performed By: #### I CRESP ####[facility] (DEFAULT)[address] [place] [address] Parainfluenza 4 - Pcr Not detected Normal Not Detected [facility] Comment on above: Order Comment: Viral transport media (red screw top with red liquid media) or respiratory fluids or tissue - Collection must be done while wearing N-95 mask, eye protection, gown and gloves. Please label ALL specimens as 2019-nCoV rule out and deliver by handResults should not be used in conjunction with other clinical and laboratory findings. This result does not rule out co-infections with pathogens that are not screened for by the Respiratory Panel(RP). This RP assay was performed using a Film Array multiplex nucleic acid assay. This test was developed and its performance characteristics determined by The Clinical [facility] at [facility]. It has not been cleared or approved by the FDA. The laboratory is required under CLIA as qualified to perform high-complexity testing. This test is used for clinical purposes. It should not be regarded as investigational or for research. Performed By: #### I CRESP ####[facility] (DEFAULT)[address] [place] [address] Rhinovirus/Enteroviru s - PCR Not detected Normal Not Detected [facility] Comment on above: Order Comment: Viral transport media (red screw top with red liquid media) or respiratory fluids or tissue - Collection must be done while wearing N-95 mask, eye protection, gown and gloves. Please label ALL specimens as 2019-nCoV rule out and deliver by handResults should not be used in conjunction with other clinical and laboratory findings. This result does not rule out co-infections with pathogens that are not screened for by the Respiratory Panel(RP). This RP assay was performed using a Film Array multiplex nucleic acid assay. This test was developed and its performance characteristics determined by The Clinical [facility]biology [facility] at [facility]. It has not been cleared or approved by the FDA. The laboratory is required under CLIA as qualified to perform high-complexity testing. This test is used for clinical purposes. It should not be regarded as investigational or for research. Performed By: #### I CRESP ####[facility] (DEFAULT)[address] [place] [address] Rsv - Pcr Not detected Normal Not Detected [facility] Comment on above: Order Comment: Viral transport media (red screw top with red liquid media) or respiratory fluids or tissue - Collection must be done while wearing N-95 mask, eye protection, gown and gloves. Please label ALL specimens as 2019-nCoV rule out and deliver by handResults should not be used in conjunction with other clinical and laboratory findings. This result does not rule out co-infections with pathogens that are not screened for by the Respiratory Panel(RP). This RP assay was performed using a Film Array multiplex nucleic acid assay. This test was developed and its performance characteristics determined by The Clinical [facility]biology [facility] at [facility]. It has not been cleared or approved by the FDA. The laboratory is required under CLIA as qualified to perform high-complexity testing. This test is used for clinical purposes. It should not be regarded as investigational or for research. Performed By: #### I CRESP ####[facility] (DEFAULT)[address] [place] [address] SARS-CoV-2 (COVID-19) RNA GREY+probe Ql (Unsp spec) Not detected Normal NOT DETECTED [facility] Comment on above: Order Comment: Viral transport media (red screw top with red liquid media) or respiratory fluids or tissue - Collection must be done while wearing N-95 mask, eye protection, gown and gloves. Please label ALL specimens as 2019-nCoV rule out and deliver by handResults should not be used in conjunction with other clinical and laboratory findings. This result does not rule out co-infections with pathogens that are not screened for by the Respiratory Panel(RP). This RP assay was performed using a Film Array multiplex nucleic acid assay. This test was developed and its performance characteristics determined by The Clinical Microbiology Laboratory at [facility]. It has not been cleared or approved by the FDA. The laboratory is required under CLIA as qualified to perform high-complexity testing. This test is used for clinical purposes. It should not be regarded as investigational or for research. Performed By: #### I CRESP ####[facility] (DEFAULT)[address] [place] [address] IONIZED CALCIUM, WHOLE BLOOD on 05-27-2022 ICA 4.19 mg/dL Low 4.60-5.30 [facility] Comment on above: Performed By: #### I CA ####[facility] (DEFAULT)[address] [place] [address] LACTATE, BLOODon 05-27-2022 Lactate, Blood 1.0 mmol/L Normal 0.5-1.6 [facility] Comment on above: Performed By: #### L ACT ####[facility] (DEFAULT)[address] [place] [address] MAGNESIUMon 05-27-2022 Magnesium [Mass/Vol] 2.2 mg/dL Normal 1.6-2.6 [facility] Comment on above: Performed By: #### I PB, CHM7, CKB, MGO ####[facility] (DEFAULT)[address] [place] [address] PHOSPHATE, INORGANICon 05-27 Phosphorous 2.5 mg/dL Normal 2.2-4.6 [facility] Comment on above: Performed By: #### I PB, CHM7, CKB, MGO ####[facility] (DEFAULT)[address] [place] [address] PROCALCITONINon 05-27-2022 Procalcitonin 0.08 ng/mL Normal <0.50 [facility] Comment on above: Result Comment: Proc alcitonin is an FDA-approved assay to help manage antibiotic treatment in patients with sepsis/septic shock and lower respiratory tract infections. Specifically, trending procalcitonin in these situations can be used to reduce the duration of antibiotics. Please refer to the Procalcitonin Guide on the Antimicrobial Stewardship Webpage for more guidance on how to use and trend procalcitonin in various clinical settings. [email or web address].[email or web address]/departments/Pharmacy/_[email or web address]/Wop iFrame.aspx?sourcedoc=/departments/Pharmacy/Documents/GDLProcalc itonin.docx&action=default&DefaultItemOpen=1Two common cutoffs associated with bacterial infections are as follows.Respiratory tract infections: >0.25 ng/mLSepsis/septic shock: >0.5 ng/mLProcalcitonin should not be used alone as a diagnostic tool, however. All procalcitonin results should be interpreted in association with the patients clinical condition and all laboratory findings. Performed By: #### P ROCAL ####[facility] (DEFAULT)[address] [place] [address] SCREEN: MRSA/MSSAon 05-27-19 23 Methicillin Resistant S. Aureus By Pcr Negative Normal Negative [facility] Comment on above: Order Comment: Colle ct with an ESWAB - Anterior Nares for MRSA + MSSAThis test was performed using a real time PCR assay. Results should be interpreted in conjunction with other clinical and laboratory findings. A positive result does not necessarily indicate the presence of viable organism. This test should not be used as a test of cure. For E-swab specimens, this test was developed and its performance characteristics determined by the Clinical Microbiology Laboratory at [facility]. It has not been cleared or approved by the FDA.The laboratory is regulated under CLIA as qualified to perform high-complexity testing. This test is used for clinical purposes. It should not be regarded as investigational or for research. Performed By: #### S CRSB ####[facility] (DEFAULT)[address] [place] [address] Staphylococcus Aureus By Pcr Negative Normal Negative [facility] Comment on above: Order Comment: Colle ct with an ESWAB - Anterior Nares for MRSA + MSSAThis test was performed using a real time PCR assay. Results should be interpreted in conjunction with other clinical and laboratory findings. A positive result does not necessarily indicate the presence of viable organism. This test should not be used as a test of cure. For E-swab specimens, this test was developed and its performance characteristics determined by the Clinical Microbiology Laboratory at [facility]. It has not been cleared or approved by the FDA.The laboratory is regulated under CLIA as qualified to perform high-complexity testing. This test is used for clinical purposes. It should not be regarded as investigational or for research. Performed By: #### S CRSB ####[facility] (DEFAULT)[address] [address] SODIUMon 05-27-2022 Sodium [Moles/Vol] 154 mmol/L High 135-145 [facility] Comment on above: Order Comment: While on HTS Performed By: #### N AO ####[facility] (DEFAULT)[address] [address] Sodium [Moles/Vol] 154 mmol/L High 135-145 [facility] Comment on above: Order Comment: While on HTS Performed By: #### N AO ####[facility] (DEFAULT)[address] [place] [address] Sodium [Moles/Vol] 156 mmol/L High 135-145 [facility] Comment on above: Order Comment: While on HTS Performed By: #### N AO ####[facility] (DEFAULT)[address] [place] [address] URINALYSIS REFLEX TO CULTURE PERFORMABLEon 05-27-2022 Amorphous <25% = Slight Abnormal (none) [facility] Comment on above: Order Comment: For i ndwelling catheters, specimen collection is acceptable on catheter day 1 and 2 only. ? Performed By: #### U [id number] ####[facility] (DEFAULT)[address] [facility] [place] [address] Appearance (U) Cloudy Abnormal Clear [facility] Comment on above: Order Comment: For i ndwelling catheters, specimen collection is acceptable on catheter day 1 and 2 only. ? Result Comment: Resu lts may be inaccurate due to color interference. Clinical correlation recommended. Performed By: #### U [id number] ####[facility] (DEFAULT)[address] [facility] [place] [address] Bacteria ABSENT Normal ABSENT [facility] Comment on above: Order Comment: For i ndwelling catheters, specimen collection is acceptable on catheter day 1 and 2 only. ? Performed By: #### U [id number] ####[facility] (DEFAULT)[address] [place] [address] Blood Urine Large Abnormal Negative [facility] Comment on above: Order Comment: For i ndwelling catheters, specimen collection is acceptable on catheter day 1 and 2 only. ? Result Comment: Resu lts may be inaccurate due to color interference. Clinical correlation recommended. Performed By: #### U [id number] ####[facility] (DEFAULT)[address] [place] [address] Color (U) [place] Abnormal Yellow [facility] Comment on above: Order Comment: For i ndwelling catheters, specimen collection is acceptable on catheter day 1 and 2 only. ? Result Comment: Resu lts may be inaccurate due to color interference. Clinical correlation recommended. Performed By: #### U [id number] ####[facility] (DEFAULT)[address] [place] [address] Glucose Ql (U) Negative Normal Negative [facility] Comment on above: Order Comment: For i ndwelling catheters, specimen collection is acceptable on catheter day 1 and 2 only. ? Result Comment: Resu lts may be inaccurate due to color interference. Clinical correlation recommended. Performed By: #### U [id number] ####[facility] (DEFAULT)[address] [facility] [place] [address] Ketones Ql (U) Negative Normal Negative [facility] Comment on above: Order Comment: For i ndwelling catheters, specimen collection is acceptable on catheter day 1 and 2 only. ? Result Comment: Resu lts may be inaccurate due to color interference. Clinical correlation recommended. Performed By: #### U [id number] ####[facility] (DEFAULT)[address] [facility] [place] [address] Leukocyte esterase Test strip Ql (U) Negative Normal Negative [facility] Comment on above: Order Comment: For i ndwelling catheters, specimen collection is acceptable on catheter day 1 and 2 only. ? Result Comment: Resu lts may be inaccurate due to color interference. Clinical correlation recommended. Performed By: #### U [id number] ####[facility] (DEFAULT)[address] [facility] [place] [address] Nitrites Urine Negative Normal Negative [facility] Comment on above: Order Comment: For i ndwelling catheters, specimen collection is acceptable on catheter day 1 and 2 only. ? Result Comment: Resu lts may be inaccurate due to color interference. Clinical correlation recommended. Performed By: #### U [id number] ####[facility] (DEFAULT)[address] [facility] [place] [address] pH (U) 8.5 [pH] Abnormal 5.0-7.0 [facility] Comment on above: Order Comment: For i ndwelling catheters, specimen collection is acceptable on catheter day 1 and 2 only. ? Result Comment: Resu lts may be inaccurate due to color interference. Clinical correlation recommended. Performed By: #### U [id number] ####[facility] (DEFAULT)[address] [place] [address], [place] [address] Protein Urine 30 mg/dL Abnormal Negative [facility] Comment on above: Order Comment: For i ndwelling catheters, specimen collection is acceptable on catheter day 1 and 2 only. ? Result Comment: Resu lts may be inaccurate due to color interference. Clinical correlation recommended. Performed By: #### U [id number] ####U [facility] (DEFAULT)[address] [place], [place] [address], [place] [address] RBC LM.HPF (Urine sed) [#/Area] /[HPF] Abnormal 0-2 [facility] Comment on above: Order Comment: For i ndwelling catheters, specimen collection is acceptable on catheter day 1 and 2 only. ? Performed By: #### U [id number] ####[facility] (DEFAULT)[address] [place] [address], [place] [address] Specific [place] Urine 1.019 Normal 1.001-1.035 [facility] Comment on above: Order Comment: For i ndwelling catheters, specimen collection is acceptable on catheter day 1 and 2 only. ? Result Comment: Resu lts may be inaccurate due to color interference. Clinical correlation recommended. Performed By: #### U [id number] ####U [facility] (DEFAULT)[address] [place] [address], [place] [address] Squamous/Epithelial Cells 1/hpf = 1+ Normal 1/hpf = 1+, 2-5/hpf = 2+, 0/hpf = 0+, ABSENT [facility] Comment on above: Order Comment: For i ndwelling catheters, specimen collection is acceptable on catheter day 1 and 2 only. ? Performed By: #### U [id number] ####[facility] (DEFAULT)[address] [place] [address], [place] [address] Urobilinogen Urine 1.0 E.U./dL Normal 0.2 E.U/d L, 1.0 E.U/dL [facility] Comment on above: Order Comment: For i ndwelling catheters, specimen collection is acceptable on catheter day 1 and 2 only. ? Result Comment: Resu lts may be inaccurate due to color interference. Clinical correlation recommended. Performed By: #### U [id number] ####[facility] (DEFAULT)[address] [place] [address] WBC Urine 0-5 Normal 0-5 [facility] Comment on above: Order Comment: For i ndwelling catheters, specimen collection is acceptable on catheter day 1 and 2 only. ? Performed By: #### U [id number] ####U [facility] (DEFAULT)[address] [place] [address] XR CHEST PORTABLEon 05-27-19 XR CHEST PORTABLE Normal [facility] CBC,PLATELETSon 05-26-2022 Hematocrit (Bld) [Volume fraction] 27.0 % Low 39.6-48.8 [facility] Comment on above: Performed By: #### H EMOGC ####[facility] (DEFAULT)[address] [facility] [place] [address] Hemoglobin (Bld) [Mass/Vol] 8.7 g/dL Low 13.4-16.8 [facility] Comment on above: Performed By: #### H EMOGC ####[facility] (DEFAULT)[address] [place] [address] MCV (RBC) [Entitic vol] 89.7 fL Normal 79.0-94.5 [facility] Comment on above: Performed By: #### H EMOGC ####[facility] (DEFAULT)[address] [facility] [place] [address] Mean Cell Hgb 28.9 pg Normal 26.1-33.3 [facility] Comment on above: Performed By: #### H EMOGC ####[facility] (DEFAULT)[address] [place] [address] Mean Cell Hgb Conc 32.2 g/dL Normal 31.9-36.5 [facility] Comment on above: Performed By: #### H EMOGC ####[facility] (DEFAULT)[address] [facility] [place] [address] Platelet mean volume (Bld) [Entitic vol] 9.5 fL Normal 8.7-12.3 [facility] Comment on above: Performed By: #### H EMOGC ####[facility] (DEFAULT)[address] [facility] [place] [address] Platelets (Bld) [#/Vol] 222 10*3/uL Normal 146-337 [facility] Comment on above: Performed By: #### H EMOGC ####[facility] (DEFAULT)[address] [facility] [place] [address] RBC (Bld) [#/Vol] 3.01 10*6/uL Low 4.38-5.83 [facility] Comment on above: Performed By: #### H EMOGC ####[facility] (DEFAULT)[address] [facility] [place] [address] RBC Distribution 13.3 % Normal 10.9-14.3 [facility] Comment on above: Performed By: #### H EMOGC ####[facility] (DEFAULT)[address] [facility] [place] [address] WBC (Bld) [#/Vol] 11.96 10*3/uL High 3.73-10.10 [facility] Comment on above: Performed By: #### H EMOGC ####[facility] (DEFAULT)[address] [facility] [place] [address] CHEM 7 (LYTES,BUN,CREA,GLUC) on 05-26-2022 Anion gap [Moles/Vol] 10 mmol/L Normal 7-17 [facility] Comment on above: Performed By: #### M GO, CKB, IPB, CHM7 ####[facility] (DEFAULT)[address] [facility] [place] [address] Chloride [Moles/Vol] 117 mmol/L High 98-108 [facility] Comment on above: Performed By: #### M GO, CKB, IPB, CHM7 ####[facility] (DEFAULT)[address] [facility] [place] [address] CO2 [Moles/Vol] 26 mmol/L Normal 21-31 [facility] Comment on above: Performed By: #### M GO, CKB, IPB, CHM7 ####[facility] (DEFAULT)[address] [facility] [place] [address] Creatinine [Mass/Vol] 0.60 mg/dL Low 0.70-1.30 [facility] Comment on above: Performed By: #### M GO, CKB, IPB, CHM7 ####[facility] (DEFAULT)[address] [facility] [place] [address] eGFR, CKD-EPI, Male > Normal >=60 [facility] Comment on above: Result Comment: Repo rted eGFR is based on the CKD-EPI 2020 equation using creatinine, age, and sex. Performed By: #### M LINWOOD, CKB, IPB, CHM7 ####[facility] (DEFAULT)[address] [facility] [place] [address] Glucose [Mass/Vol] 162 mg/dL High 70-99 [facility] Comment on above: Performed By: #### M GO, CKB, IPB, CHM7 ####U [facility] (DEFAULT)[address] [facility] [place] [address] Osmolality [Osmolality] 314 mosm/kg High 278-305 [facility] Comment on above: Performed By: #### M GO, CKB, IPB, CHM7 ####U [facility] (DEFAULT)[address] [facility] [place] [address] Potassium [Moles/Vol] 3.6 mmol/L Normal 3.5-5.0 [facility] Comment on above: Performed By: #### M GO, CKB, IPB, CHM7 ####[facility] (DEFAULT)[address] [facility] [place] [address] Sodium [Moles/Vol] 149 mmol/L High 135-145 [facility] Comment on above: Performed By: #### M GO, CKB, IPB, CHM7 ####[facility] (DEFAULT)[address] [facility] [place] [address] Urea nitrogen [Mass/Vol] 17 mg/dL Normal 7-25 [facility] Comment on above: Performed By: #### M GO, CKB, IPB, CHM7 ####[facility] (DEFAULT)[address] [place] [address], [place] [address] Urea nitrogen/Creatinine [Mass ratio] 28 mg/mg Normal [facility] Comment on above: Performed By: #### M GO, CKB, IPB, CHM7 ####[facility] (DEFAULT)[address] [place] [address] CKon 05-26-2022 CK [Catalytic activity/Vol] 380 U/L High 30-220 [facility] Comment on above: Performed By: #### M GO, CKB, IPB, CHM7 ####U [facility] (DEFAULT)[address] [place] [address] [address] HEAD WITHOUT CONTRASTon 0 05-26-2022 CT HEAD WITHOUT CONTRAST Normal [facility] CT HEAD WITHOUT CONTRAST Normal [facility] IONIZED CALCIUM, WHOLE BLOOD on 05-26-2022 ICA 4.58 mg/dL Low 4.60-5.30 [facility] Comment on above: Performed By: #### I CA ####[facility] (DEFAULT)[address] [place] [address] LOWER RESPIRATORY CULTURE, B ACTERIALon 05-26-2022 Amikacin [Susceptibility] <= Invalid Interpretation Code Susceptible <=16 ug/mL, Intermediate >16 ug/mL, Resistant >32 ug/mL [facility] Comment on above: Performed By: #### R ES ####[facility] (DEFAULT)[address] [place] [address] Cefepime [Susceptibility] <=1 Invalid Interpretation Code Susceptible <=2 ug/mL, Susceptible-D ose Dependent >2 ug/mL, Resistant >8 ug/mL [facility] Comment on above: Performed By: #### R ES ####[facility] (DEFAULT)[address] [place] [address] Ceftriaxone [Susceptibility] <= Invalid Interpretation Code Susceptible <=1 ug/mL, Intermediate >1 ug/mL, Resistant >2 ug/mL [facility] Comment on above: Performed By: #### R ES ####[facility] (DEFAULT)[address] [place] [address] Ciprofloxacin [Susceptibility] <= Invalid Interpretation Code Susceptible <=0.25 ug/mL, Intermediate >.25 ug/mL, Resistant >.5 ug/mL [facility] Comment on above: Performed By: #### R ES ####[facility] (DEFAULT)[address] [place] [address] Ertapenem [Susceptibility] <= Invalid Interpretation Code Susceptible <=0.5 ug/mL, Intermediate >.5 ug/mL, Resistant >1 ug/mL [facility] Comment on above: Performed By: #### R ES ####[facility] (DEFAULT)[address] [place] [address] Gentamicin [Susceptibility] <= Invalid Interpretation Code Susceptible <=4 ug/mL, Intermediate >4 ug/mL, Resistant >8 ug/mL [facility] Comment on above: Performed By: #### R ES ####[facility] (DEFAULT)[address] [place] [address] Piperacillin+Tazobact am [Susceptibility] <= Invalid Interpretation Code Susceptible <=8 ug/mL, Susceptible-D ose Dependent >8 ug/mL, Resistant >=32 ug/mL [facility] Comment on above: Performed By: #### R ES ####[facility] (DEFAULT)[address] [place] [address], [place] [address] Tobramycin [Susceptibility] <= Invalid Interpretation Code Susceptible <=4 ug/mL, Intermediate >4 ug/mL, Resistant >8 ug/mL [facility] Comment on above: Performed By: #### R ES ####[facility] (DEFAULT)[address] [place] [address], [place] [address] Trimethoprim+Sulfamet hoxazole [Susceptibility] <= Invalid Interpretation Code Susceptible <=40 ug/mL, Resistant >40 ug/mL [facility] Comment on above: Performed By: #### R ES ####[facility] (DEFAULT)[address] [facility] [place] [address] MAGNESIUMon 05-26-2022 Magnesium [Mass/Vol] 2.1 mg/dL Normal 1.6-2.6 [facility] Comment on above: Performed By: #### M GO, CKB, IPB, CHM7 ####[facility] (DEFAULT)[address] [place] [address], [place] [address] PHOSPHATE, INORGANICon 05-26 Phosphorous 1.8 mg/dL Low 2.2-4.6 [facility] Comment on above: Performed By: #### M GO, CKB, IPB, CHM7 ####[facility] (DEFAULT)[address] [place], [place] [address], [place] [address] SODIUMon 05-26-2022 Sodium [Moles/Vol] 152 mmol/L High 135-145 [facility] Comment on above: Order Comment: While on 3% Hypertonic Saline. Performed By: #### N AO ####[facility] (DEFAULT)[address] [facility] [place] [address] Sodium [Moles/Vol] 152 mmol/L High 135-145 [facility] Comment on above: Order Comment: While on 3% Hypertonic Saline. Performed By: #### N AO ####[facility] (DEFAULT)[address] [place] [address] Sodium [Moles/Vol] 151 mmol/L High 135-145 [facility] Comment on above: Order Comment: While on 3% Hypertonic Saline. Performed By: #### N AO ####[facility] (DEFAULT)[address] [facility] [place] [address] CBC,PLATELETSon 05-25-2022 Hematocrit (Bld) [Volume fraction] 29.7 % Low 39.6-48.8 [facility] Comment on above: Performed By: #### H EMOGC ####[facility] (DEFAULT)[address] [facility] [place] [place] [address] Hemoglobin (Bld) [Mass/Vol] 9.9 g/dL Low 13.4-16.8 [facility] Comment on above: Performed By: #### H EMOGC ####[facility] (DEFAULT)[address] [facility] [place] [place] [address] MCV (RBC) [Entitic vol] 88.7 fL Normal 79.0-94.5 [facility] Comment on above: Performed By: #### H EMOGC ####[facility] (DEFAULT)[address] [facility] [place] [address] Mean Cell Hgb 29.6 pg Normal 26.1-33.3 [facility] Comment on above: Performed By: #### H EMOGC ####[facility] (DEFAULT)[address] [facility] [place] [address] Mean Cell Hgb Conc 33.3 g/dL Normal 31.9-36.5 [facility] Comment on above: Performed By: #### H EMOGC ####[facility] (DEFAULT)[address] [place] [address] Platelet mean volume (Bld) [Entitic vol] 9.2 fL Normal 8.7-12.3 [facility] Comment on above: Performed By: #### H EMO ####[facility] (DEFAULT)[address] [facility] [place] [address] Platelets (Bld) [#/Vol] 208 10*3/uL Normal 146-337 [facility] Comment on above: Performed By: #### H EMO ####[facility] (DEFAULT)[address] [facility] [place] [address] RBC (Bld) [#/Vol] 3.35 10*6/uL Low 4.38-5.83 [facility] Comment on above: Performed By: #### [facility] ####[facility] (DEFAULT)[address] [facility] [place] [address] RBC Distribution 13.2 % Normal 10.9-14.3 [facility] Comment on above: Performed By: #### H EMO ####[facility] (DEFAULT)[address] [facility] [place] [address] WBC (Bld) [#/Vol] 14.76 10*3/uL High 3.73-10.10 [facility] Comment on above: Performed By: #### H [facility] ####[facility] (DEFAULT)[address] [place] [address] CHEM 7 (LYTES,BUN,CREA,GLUC) on 05-25-2022 Anion gap [Moles/Vol] 12 mmol/L Normal 7-17 [facility] Comment on above: Performed By: #### C HM7, TRIG, CKB, IPB, MGO ####U [facility] (DEFAULT)[address] [facility] [place] [address] Chloride [Moles/Vol] 114 mmol/L High 98-108 [facility] Comment on above: Performed By: #### C HM7, TRIG, CKB, IPB, MGO ####[facility] (DEFAULT)[address] [facility] [place] [address] CO2 [Moles/Vol] 23 mmol/L Normal 21-31 [facility] Comment on above: Performed By: #### C HM7, TRIG, CKB, IPB, MGO ####[facility] (DEFAULT)[address] [facility] [place] [address] Creatinine [Mass/Vol] 0.67 mg/dL Low 0.70-1.30 [facility] Comment on above: Performed By: #### C HM7, TRIG, CKB, IPB, MGO ####[facility] (DEFAULT)[address] [facility] [place] [address] eGFR, CKD-EPI, Male > Normal >=60 [facility] Comment on above: Result Comment: Repo rted eGFR is based on the CKD-EPI 2020 equation using creatinine, age, and sex. Performed By: #### C HM7, TRIG, CKB, IPB, MGO ####[facility] (DEFAULT)[address] [place] [address], [place] [address] Glucose [Mass/Vol] 166 mg/dL High 70-99 [facility] Comment on above: Performed By: #### C HM7, TRIG, CKB, IPB, MGO ####U [facility] (DEFAULT)[address] [facility] [place] [address] Osmolality [Osmolality] 306 mosm/kg High 278-305 [facility] Comment on above: Performed By: #### C HM7, TRIG, CKB, IPB, MGO ####[facility] (DEFAULT)[address] [place] [address], [place] [address] Potassium [Moles/Vol] 3.8 mmol/L Normal 3.5-5.0 [facility] Comment on above: Performed By: #### C HM7, TRIG, CKB, IPB, MGO ####[facility] (DEFAULT)[address] [place] [address] Sodium [Moles/Vol] 145 mmol/L Normal 135-145 [facility] Comment on above: Performed By: #### C HM7, TRIG, CKB, IPB, MGO ####[facility] (DEFAULT)[address] [facility] [place] [address] Urea nitrogen [Mass/Vol] 12 mg/dL Normal 7-25 [facility] Comment on above: Performed By: #### C HM7, TRIG, CKB, IPB, MGO ####[facility] (DEFAULT)[address] [place] [address], [place] [address] Urea nitrogen/Creatinine [Mass ratio] 18 mg/mg Normal [facility] Comment on above: Performed By: #### C HM7, TRIG, CKB, IPB, MGO ####[facility] (DEFAULT)[address] [place] [address], [place] [address] CKon 05-25-2022 CK [Catalytic activity/Vol] 758 U/L Critically high 30-220 [facility] Comment on above: Order Comment: While on Propofol. Performed By: #### C HM7, TRIG, CKB, IPB, MGO ####[facility] (DEFAULT)[address] [place] [address] IONIZED CALCIUM, WHOLE BLOOD on 05-25-2022 ICA 4.32 mg/dL Low 4.60-5.30 [facility] Comment on above: Performed By: #### I CA ####[facility] (DEFAULT)[address] [place] [address] MAGNESIUMon 05-25-2022 Magnesium [Mass/Vol] 2.0 mg/dL Normal 1.6-2.6 [facility] Comment on above: Performed By: #### C HM7, TRIG, CKB, IPB, MGO ####[facility] (DEFAULT)[address] [facility] [place] [address] MRI BRAIN WITHOUT CONTRASTon 05-25-2022 MRI BRAIN WITHOUT CONTRAST Normal [facility] PHOSPHATE, INORGANICon 01-07 -2023 Phosphorous 1.9 mg/dL Low 2.2-4.6 [facility] Comment on above: Performed By: #### C HM7, TRIG, CKB, IPB, MGO ####U [facility] (DEFAULT)[address] [facility] [place] [address] SODIUMon 05-25-2022 Sodium [Moles/Vol] 148 mmol/L High 135-145 [facility] Comment on above: Order Comment: While on 3% Hypertonic Saline. Performed By: #### N AO ####[facility] (DEFAULT)[address] [facility] [place] [address] Sodium [Moles/Vol] 149 mmol/L High 135-145 [facility] Comment on above: Order Comment: While on 3% Hypertonic Saline. Performed By: #### N AO ####[facility] (DEFAULT)[address] [facility] [place] [address] Sodium [Moles/Vol] 147 mmol/L High 135-145 [facility] Comment on above: Order Comment: While on 3% Hypertonic Saline. Performed By: #### N AO ####[facility] (DEFAULT)[address] [facility] [place] [address] Sodium [Moles/Vol] 144 mmol/L Normal 135-145 [facility] Comment on above: Performed By: #### N AO ####[facility] (DEFAULT)[address] [facility] [place] [address] TRIGLYCERIDEon 05-25-2022 Triglyceride [Mass/Vol] 143 mg/dL Normal <150 [facility] Comment on above: Order Comment: While on Propofol. Result Comment: [<15 0 mg/dL: Desirable][150-199 mg/dL: Borderline][200-499 mg/dL: High][>500 mg/dL: Very High] Performed By: #### C HM7, TRIG, CKB, IPB, MGO ####U [facility] (DEFAULT)[address] [facility] [place] [address] CBC,PLATELETSon 05-24-2022 Hematocrit (Bld) [Volume fraction] 34.9 % Low 39.6-48.8 [facility] Comment on above: Performed By: #### H EMOGC ####[facility] (DEFAULT)[address] [facility] [place] [address] Hemoglobin (Bld) [Mass/Vol] 11.6 g/dL Low 13.4-16.8 [facility] Comment on above: Performed By: #### H EMOGC ####[facility] (DEFAULT)[address] [facility] [place] [address] MCV (RBC) [Entitic vol] 87.9 fL Normal 79.0-94.5 [facility] Comment on above: Performed By: #### H EMOGC ####[facility] (DEFAULT)[address] [facility] [place] [address] Mean Cell Hgb 29.2 pg Normal 26.1-33.3 [facility] Comment on above: Performed By: #### H EMOGC ####[facility] (DEFAULT)[address] [facility] [place] [address] Mean Cell Hgb Conc 33.2 g/dL Normal 31.9-36.5 [facility] Comment on above: Performed By: #### H EMOGC ####[facility] (DEFAULT)[address] [facility] [place] [address] Platelet mean volume (Bld) [Entitic vol] 9.2 fL Normal 8.7-12.3 [facility] Comment on above: Performed By: #### H EMOGC ####[facility] (DEFAULT)[address] [facility] [place] [address] Platelets (Bld) [#/Vol] 200 10*3/uL Normal 146-337 [facility] Comment on above: Performed By: #### H EMOGC ####[facility] (DEFAULT)[address] [facility] [place] [address] RBC (Bld) [#/Vol] 3.97 10*6/uL Low 4.38-5.83 [facility] Comment on above: Performed By: #### [facility] ####[facility] (DEFAULT)[address] [facility] [place] [address] RBC Distribution 12.8 % Normal 10.9-14.3 [facility] Comment on above: Performed By: #### H [facility] ####[facility] (DEFAULT)[address] [facility] [place] [address] WBC (Bld) [#/Vol] 13.42 10*3/uL High 3.73-10.10 [facility] Comment on above: Performed By: #### H [facility] ####[facility] (DEFAULT)[address] [place] [address] CHEM 7 (LYTES,BUN,CREA,GLUC) on 05-24-2022 Anion gap [Moles/Vol] 10 mmol/L Normal 7-17 [facility] Comment on above: Performed By: #### C HM7, IPB, MGO ####[facility] (DEFAULT)[address] [facility] [place] [address] Chloride [Moles/Vol] 110 mmol/L High 98-108 [facility] Comment on above: Performed By: #### C HM7, IPB, MGO ####[facility] (DEFAULT)[address] [facility] [place] [address] CO2 [Moles/Vol] 25 mmol/L Normal 21-31 [facility] Comment on above: Performed By: #### C HM7, IPB, MGO ####[facility] (DEFAULT)[address] [place] [address] Creatinine [Mass/Vol] 0.73 mg/dL Normal 0.70-1.30 [facility] Comment on above: Performed By: #### C HM7, IPB, MGO ####[facility] (DEFAULT)[address] [place] [address] eGFR, CKD-EPI, Male > Normal >=60 [facility] Comment on above: Result Comment: Repo rted eGFR is based on the CKD-EPI 2020 equation using creatinine, age, and sex. Performed By: #### Josette HM7, IPB, MGO ####[facility] (DEFAULT)[address] [place] [address] Glucose [Mass/Vol] 132 mg/dL High 70-99 [facility] Comment on above: Performed By: #### C JAYME, IPB, MGO ####U [facility] (DEFAULT)[address] [place] [address] Osmolality [Osmolality] 296 mosm/kg Normal 278-305 [facility] [facility] Comment on above: Performed By: #### Josette HMCrystal, IPB, MGO ####[facility] (DEFAULT)[address] [place] [address] Potassium [Moles/Vol] 3.9 mmol/L Normal 3.5-5.0 [facility] Comment on above: Performed By: #### Josette HM7, IPB, MGO ####[facility] (DEFAULT)[address] [place] [address] Sodium [Moles/Vol] 141 mmol/L Normal 135-145 [facility] Comment on above: Performed By: #### Josette HM7, IPB, MGO ####[facility] (DEFAULT)[address] [place] [address] Urea nitrogen [Mass/Vol] 10 mg/dL Normal 7-25 [facility] Comment on above: Performed By: #### Josette HM7, IPB, MGO ####[facility] (DEFAULT)[address] [place] [address] Urea nitrogen/Creatinine [Mass ratio] 14 mg/mg Normal [facility] Comment on above: Performed By: #### C HM7, IPB, MGO ####[facility] (DEFAULT)[address] [place] [address] CT HEAD WITHOUT CONTRASTon 0 05-24-2022 CT HEAD WITHOUT CONTRAST Normal [facility] CT HEAD WITHOUT CONTRAST Normal [facility] IONIZED CALCIUM, WHOLE BLOOD on 05-24-2022 ICA 4.26 mg/dL Low 4.60-5.30 [facility] Comment on above: Performed By: #### I CA ####[facility] (DEFAULT)[address] [place] [address] MAGNESIUMon 05-24-2022 Magnesium [Mass/Vol] 2.3 mg/dL Normal 1.6-2.6 [facility] Comment on above: Performed By: #### C HM7, IPB, MGO ####[facility] (DEFAULT)[address] [place] [address] PHOSPHATE, INORGANICon 05-24 Phosphorous 2.2 mg/dL Normal 2.2-4.6 [facility] Comment on above: Performed By: #### C HM7, IPB, MGO ####[facility] (DEFAULT)[address] [place] [address] PT,INR,PTTon 05-24-2022 aPTT Coag (Bld) [Time] 33.7 s Normal 24.0-34.3 [facility] Comment on above: Performed By: #### P TPTT ####[facility] (DEFAULT)[address] [place] [address] INR Coag (PPP) [Relative time] 1.2 {INR} High 0.9-1.1 [facility] Comment on above: Performed By: #### P TPTT ####[facility] (DEFAULT)[address] [place] [address] PT Coag (PPP) [Time] 15.6 s High 11.9-14.2 [facility] Comment on above: Performed By: #### P TPTT ####[facility] (DEFAULT)[address] [facility] [place] [address] SODIUMon 05-24-2022 Sodium [Moles/Vol] 145 mmol/L Normal 135-145 [facility] Comment on above: Order Comment: While on 3% Hypertonic Saline. Performed By: #### N AO ####[facility] (DEFAULT)[address] [facility] [place] [address] Sodium [Moles/Vol] 147 mmol/L High 135-145 [facility] Comment on above: Order Comment: While on 3% Hypertonic Saline. Performed By: #### N AO ####[facility] (DEFAULT)[address] [facility] [place] [address] Sodium [Moles/Vol] 146 mmol/L High 135-145 [facility] Comment on above: Order Comment: While on 3% Hypertonic Saline. Performed By: #### N AO ####[facility] (DEFAULT)[address] [place] [address], [place] [address] Sodium [Moles/Vol] 142 mmol/L Normal 135-145 [facility] Comment on above: Order Comment: While on 3% Hypertonic Saline. Performed By: #### N AO ####[facility] (DEFAULT)[address] [place] [address], [place] [address] XR CHEST PORTABLEon 05-24-19 23 XR CHEST PORTABLE Normal [facility] ARTERIAL BLOOD GAS PLUS LACT ATEon 05-23-2022 Base Excess 1.6 mmol/L Normal -3.0-3.0 [facility] Comment on above: Performed By: #### G AS5L ####[facility] (DEFAULT)[address] [place] [address], [place] [address] HCO3 (Bld) [Moles/Vol] 27 mmol/L Normal 22-28 [facility] Comment on above: Performed By: #### G AS5L ####[facility] (DEFAULT)[address] [facility] [place] [address] Lactate, Whole Blood 1.0 mmol/L Normal 0.5-1.6 [facility] Comment on above: Performed By: #### G AS5L ####[facility] (DEFAULT)[address] [facility] [place] [address] pCO2 44 mm Hg Normal 32-48 [facility] Comment on above: Performed By: #### G AS5L ####[facility] (DEFAULT)[address] [place] [address], [place] [address] pH (Bld) 7.39 [pH] Normal 7.35-7.45 [facility] Comment on above: Performed By: #### G AS5L ####[facility] (DEFAULT)[address] [place] [address], [place] [address] pO2 97 mm Hg Normal 83-108 [facility] Comment on above: Performed By: #### G AS5L ####[facility] (DEFAULT)[address] [place] [address], [place] [address] sO2 99 % High 94-98 [facility] Comment on above: Performed By: #### G AS5L ####[facility] (DEFAULT)[address] [place] [address], [place] [address] Specimen type Nom (Spec) Arterial Normal [facility] Comment on above: Performed By: #### G AS5L ####[facility] (DEFAULT)[address] [place] [address], [place] [address] CALCIUMon 05-23-2022 Calcium [Mass/Vol] 7.4 mg/dL Low 8.6-10.5 [facility] Comment on above: Performed By: #### M GO, IPB, CHM7, CA ####[facility] (DEFAULT)[address] [place] [address] CBC AND ELECTRONIC DIFFon Abs Baso Auto < Normal 0.00-0.09 [facility] Comment on above: Performed By: #### L AB980 ####[facility] (DEFAULT)[address] [facility] [place] [address] Basophils/100 WBC (Bld) 0.2 % Normal [facility] Comment on above: Performed By: #### L AB980 ####[facility] (DEFAULT)[address] [facility] [place] [address] DIFF STATUS Electronic Differential Normal [facility] Comment on above: Performed By: #### L AB980 ####[facility] (DEFAULT)[address] [facility] [place] [address] Eosinophils (Bld) [#/Vol] 0.04 10*3/uL Normal 0.00-0.48 [facility] Comment on above: Performed By: #### L AB980 ####[facility] (DEFAULT)[address] [facility] [place] [address] Eosinophils/100 WBC (Bld) 0.3 % Normal [facility] Comment on above: Performed By: #### L AB980 ####[facility] (DEFAULT)[address] [facility] [place] [address] Hematocrit (Bld) [Volume fraction] 39.2 % Low 39.6-48.8 [facility] Comment on above: Performed By: #### L AB980 ####[facility] (DEFAULT)[address] [facility] [place] [address] Hemoglobin (Bld) [Mass/Vol] 13.2 g/dL Low 13.4-16.8 [facility] Comment on above: Result Comment: Resu lts inconsistent with previous results Performed By: #### L AB980 ####[facility] (DEFAULT)[address] [facility] [place] [address] Immature Grans % 0.3 % Normal [facility] Comment on above: Performed By: #### L AB980 ####[facility] (DEFAULT)[address] [facility] [place] [address] Immature Grans Absolute 0.04 K/uL Normal <=0.07 [facility] Comment on above: Performed By: #### L AB980 ####[facility] (DEFAULT)[address] [facility] [place] [address] Lymphocytes (Bld) [#/Vol] 1.47 10*3/uL Normal 0.83-3.57 [facility] Comment on above: Performed By: #### L AB980 ####[facility] (DEFAULT)[address] [facility] [place] [address] Lymphocytes/100 WBC (Bld) 12.7 % Normal [facility] Comment on above: Performed By: #### L AB980 ####[facility] (DEFAULT)[address] [facility] [place] [address] MCV (RBC) [Entitic vol] 86.3 fL Normal 79.0-94.5 [facility] Comment on above: Performed By: #### L AB980 ####[facility] (DEFAULT)[address] [facility] [place] [address] Mean Cell Hgb 29.1 pg Normal 26.1-33.3 [facility] Comment on above: Performed By: #### L AB980 ####[facility] (DEFAULT)[address] [place] [address] Mean Cell Hgb Conc 33.7 g/dL Normal 31.9-36.5 [facility] Comment on above: Performed By: #### L AB980 ####[facility] (DEFAULT)[address] [place] [address] Monocytes (Bld) [#/Vol] 0.89 10*3/uL Normal 0.24-0.93 [facility] Comment on above: Performed By: #### L AB980 ####[facility] (DEFAULT)[address] [place] [address] Monocytes/100 WBC (Bld) 7.7 % Normal [facility] Comment on above: Performed By: #### L AB980 ####[facility] (DEFAULT)[address] [place] [address] Nucleated RBC 0.0 /100 WBC Normal <=0.2 [facility] Comment on above: Performed By: #### L AB980 ####[facility] (DEFAULT)[address] [facility] [place] [address] Platelet mean volume (Bld) [Entitic vol] 9.0 fL Normal 8.7-12.3 [facility] Comment on above: Performed By: #### L AB980 ####[facility] (DEFAULT)[address] [facility] [place] [address] Platelets (Bld) [#/Vol] 218 10*3/uL Normal 146-337 [facility] Comment on above: Performed By: #### L AB980 ####[facility] (DEFAULT)[address] [facility] [place] [address] RBC (Bld) [#/Vol] 4.54 10*6/uL Normal 4.38-5.83 [facility] Comment on above: Performed By: #### L AB980 ####[facility] (DEFAULT)[address] [facility] [place] [address] RBC Distribution 12.9 % Normal 10.9-14.3 [facility] Comment on above: Performed By: #### L AB980 ####[facility] (DEFAULT)[address] [facility] [place] [address] Segs + Bands Auto 78.8 % Normal [facility] Comment on above: Performed By: #### L AB980 ####[facility] (DEFAULT)[address] [facility] [place] [address] Segs + Bands,Absolute Auto 9.16 K/uL High 1.57-6.19 [facility] Comment on above: Performed By: #### L AB980 ####[facility] (DEFAULT)[address] [facility] [place] [address] WBC (Bld) [#/Vol] 11.62 10*3/uL High 3.73-10.10 [facility] Comment on above: Performed By: #### L AB980 ####[facility] (DEFAULT)[address] [facility] [place] [address] CBC,PLATELETSon 05-23-2022 Hematocrit (Bld) [Volume fraction] 38.8 % Low 39.6-48.8 [facility] Comment on above: Performed By: #### H EMOGC ####[facility] (DEFAULT)[address] [facility] [place] [address] Hemoglobin (Bld) [Mass/Vol] 13.1 g/dL Low 13.4-16.8 [facility] Comment on above: Performed By: #### H EMOGC ####[facility] (DEFAULT)[address] [facility] [place] [address] MCV (RBC) [Entitic vol] 85.8 fL Normal 79.0-94.5 [facility] Comment on above: Performed By: #### H EMOGC ####[facility] (DEFAULT)[address] [facility] [place] [address] Mean Cell Hgb 29.0 pg Normal 26.1-33.3 [facility] Comment on above: Performed By: #### H EMOGC ####[facility] (DEFAULT)[address] [facility] [place] [address] Mean Cell Hgb Conc 33.8 g/dL Normal 31.9-36.5 [facility] Comment on above: Performed By: #### H EMOGC ####[facility] (DEFAULT)[address] [facility] [place] [address] Platelet mean volume (Bld) [Entitic vol] 8.8 fL Normal 8.7-12.3 [facility] Comment on above: Performed By: #### H EMO ####[facility] (DEFAULT)[address] [facility] [place] [address] Platelets (Bld) [#/Vol] 223 10*3/uL Normal 146-337 [facility] Comment on above: Performed By: #### H EMO ####[facility] (DEFAULT)[address] [facility] [place] [address] RBC (Bld) [#/Vol] 4.52 10*6/uL Normal 4.38-5.83 [facility] Comment on above: Performed By: #### H EMO ####[facility] (DEFAULT)[address] [facility] [place] [address] RBC Distribution 13.0 % Normal 10.9-14.3 [facility] Comment on above: Performed By: #### H EMO ####[facility] (DEFAULT)[address] [facility] [place] [address] WBC (Bld) [#/Vol] 15.03 10*3/uL High 3.73-10.10 [facility] Comment on above: Performed By: #### H EMOGC ####[facility] (DEFAULT)[address] [facility] [place] [address] CHEM 7 (LYTES,BUN,CREA,GLUC) on 05-23-2022 Anion gap [Moles/Vol] 12 mmol/L Normal 7-17 [facility] Comment on above: Performed By: #### M GO, IPB, CHM7, CA ####[facility] (DEFAULT)[address] [facility] [place] [address] Chloride [Moles/Vol] 103 mmol/L Normal 98-108 [facility] Comment on above: Performed By: #### M GO, IPB, CHM7, CA ####[facility] (DEFAULT)[address] [place] [address] CO2 [Moles/Vol] 27 mmol/L Normal 21-31 [facility] Comment on above: Performed By: #### DAYANA PRATT CHM7, CA ####[facility] (DEFAULT)[address] [place] [address] Creatinine [Mass/Vol] 1.04 mg/dL Normal 0.70-1.30 [facility] Comment on above: Performed By: #### DAYANA PRATT CHM7, CA ####[facility] (DEFAULT)[address] [facility] [address] eGFR, CKD-EPI, Male > Normal >=60 [facility] Comment on above: Result Comment: Repo rted eGFR is based on the CKD-EPI 2020 equation using creatinine, age, and sex. Performed By: #### DAYANA PRATT CHM7, CA ####[facility] (DEFAULT)[address] [facility] [place] [address] Glucose [Mass/Vol] 148 mg/dL High 70-99 [facility] Comment on above: Performed By: #### DAYANA PRATT CHM7, CA ####[facility] (DEFAULT)[address] [place] [address] Osmolality [Osmolality] 292 mosm/kg Normal 278-305 [facility] Comment on above: Performed By: #### DAYANA PRATT CHM7, CA ####[facility] (DEFAULT)[address] [facility] [place] [address] Potassium [Moles/Vol] 4.1 mmol/L Normal 3.5-5.0 [facility] Comment on above: Performed By: #### DAYANA PRATT CHM7, CA ####[facility] (DEFAULT)[address] [place] [address] Sodium [Moles/Vol] 138 mmol/L Normal 135-145 [facility] Comment on above: Performed By: #### M GO, IPB, CHM7, CA ####[facility] (DEFAULT)[address] [facility] [place] [address] Urea nitrogen [Mass/Vol] 11 mg/dL Normal 7-25 [facility] Comment on above: Performed By: #### M GO, IPB, CHM7, CA ####[facility] (DEFAULT)[address] [facility] [place] [address] Urea nitrogen/Creatinine [Mass ratio] 11 mg/mg Normal [facility] Comment on above: Performed By: #### M GO, IPB, CHM7, CA ####[facility] (DEFAULT)[address] [place] [address] CKon 05-23-2022 CK [Catalytic activity/Vol] 387 U/L High 30-220 [facility] Comment on above: Performed By: #### T RIG, CKB ####U [facility] (DEFAULT)[address] [place] [address] [address] ANGIO BRAINon 05-23-2022 CT ANGIO BRAIN Normal [facility] CT HEAD WITHOUT CONTRASTon 0 05-23-2022 CT HEAD WITHOUT CONTRAST Normal [facility] CT HEAD WITHOUT CONTRAST Normal [facility] CT HEAD WITHOUT CONTRAST Normal [facility] CT STROKE HEAD-STROKE ALERT ONLYon 05-23-2022 CT STROKE HEAD-STROKE ALERT ONLY Normal [facility] HEMOGLOBIN A1Con 05-23-2022 Glucose [Mass/Vol] 108 mg/dL Normal [facility] Comment on above: Performed By: #### A 1CB ####[facility] (DEFAULT)[address] [place] [address] HbA1c (Bld) [Mass fraction] 5.4 % Normal 4.7-5.6 [facility] Comment on above: Performed By: #### A 1CB ####[facility] (DEFAULT)[address] [place] [address] IONIZED CALCIUM, WHOLE BLOOD on 05-23-2022 ICA 4.13 mg/dL Low 4.60-5.30 [facility] Comment on above: Performed By: #### I CA ####[facility] (DEFAULT)[address] [place] [address] MAGNESIUMon 05-23-2022 Magnesium [Mass/Vol] 2.0 mg/dL Normal 1.6-2.6 [facility] Comment on above: Performed By: #### M GO, IPB, CHM7, CA ####[facility] (DEFAULT)[address] [place] [address] PHOSPHATE, INORGANICon 05-23 Phosphorous 5.1 mg/dL High 2.2-4.6 [facility] Comment on above: Performed By: #### M GO, IPB, CHM7, CA ####[facility] (DEFAULT)[address] [facility] [place] [address] PT,INR,PTTon 05-23-2022 aPTT Coag (Bld) [Time] 27.6 s Normal 24.0-34.3 [facility] Comment on above: Performed By: #### P TPTT ####[facility] (DEFAULT)[address] [place] [address] INR Coag (PPP) [Relative time] 1.1 {INR} Normal 0.9-1.1 [facility] Comment on above: Performed By: #### P TPTT ####[facility] (DEFAULT)[address] [place] [address] PT Coag (PPP) [Time] 14.7 s High 11.9-14.2 [facility] Comment on above: Performed By: #### P TPTT ####[facility] (DEFAULT)[address] [place] [address] SODIUMon 05-23-2022 Sodium [Moles/Vol] 139 mmol/L Normal 135-145 [facility] Comment on above: Order Comment: While on 3% Hypertonic Saline. Performed By: #### N AO ####[facility] (DEFAULT)[address] [facility] [place] [address] Sodium [Moles/Vol] 138 mmol/L Normal 135-145 [facility] Comment on above: Order Comment: Previ ous NA level not consistent Performed By: #### N AO ####[facility] (DEFAULT)[address] [facility] [place] [address] Sodium [Moles/Vol] 150 mmol/L High 135-145 [facility] Comment on above: Order Comment: While on 3% Hypertonic Saline. Result Comment: Resu lts inconsistent with previous results Performed By: #### N AO ####[facility] (DEFAULT)[address] [facility] [place] [address] [facility] S[facility] Bar[facility]urates Negative Normal Cutoff: 200 ng/mL [facility] Comment on above: Order Comment: For M edical Purposes Only. Nonforensic screen results are considered presumptive and no confirmatory testing will follow. Drugs are detected by immunoassay or Liquid Chromatography Mass Spectrometry (LC-MS/MS). The LC-MS/MS test was developed and its performance characteristics determined by the Toxicology Laboratory at [facility]. It has not been cleared or approved by the FDA. The laboratory is regulated under CLIA as qualified to perform high-complexity testing. This test is used for clinical purposes and should not be regarded as investigational or for research.The following drugs with their lowest level of detection in ng/ml(LOD) are included in this screen:6 Monoacetylmorphine(300), 7 Aminoflunitrazepam(25), 7 Aminoclonazepam(50),7 hydroxymitragynine (100),Alphahydroxymidazolam (200), Alphahydrozyalprazolam(200), Alprazolam(50), Amitriptyline(50), Amphetamine(250), Atenolol(500),Benzoylecgonine(50), Buprenorphine(100), Bupropion(25),Caffeine([address]),Chlordiazepoxide(50), Chlorpheniramine(100), Chlorpromazine(50), Citalopram(100), Clonazepam(200), Cocaine(25),Codeine(200), Cotinine(500),Desipramine(50), Desmethyldoxepin(100), Dextromethorphan(100), Diazepam(100), Dihydrocodeine(100), Diltazem(50), Diphenhydramine(100),Doxepin(100),EDDP/methadone(100), Ephedrine/Pseudoephedrine(100),Fentanyl(25),Flunitrazepam(100),F luoxetine(200), Flurazepam(50),Gabapentin(1500), Haloperidol(25), Hydrocodone(100), Hydromorphone(200), Imipramine(50), Ketamine(25), Lidocaine(25),Lorazepam(100), Lysergide(LSD)(25),Maprotiline(200), MDA(250), MDMA(250), Meperidine(50),Midazolam (200),Methadone(50), Methamphetamine(500), Methylphenidate(50), Metoprolol(50), Morphine(200),Nalbuphine(50), Naloxone(200), Norbuprenorphine(300), Nordiazepam(100), Norfentanyl(50),Noroxycodone (100), Norpropoxyphene(50), Nortriptyline(50), Olanzapine(200),Oxazepam(200),Oxycodone(100),Oxymorphone(200), Phencyclidine(PCP)(25), Pheniramine(25), Pregabalin(1500), Promethazine(50), Propoxyphene(100), Propanolol(50), Quetiapine(25), Quinidine(500), Ranitidine(500), Risperidone(100), Sertraline(50),Temazepam(100), Thioridazine(100), Tramadol(50), Trazodone(25), Triazolam(100), Trifluoperazine (100),Venlafaxine(50), Verapamil(100), Zolpidem(200) Performed By: #### U DRG ####[facility] (DEFAULT)[address] [place] [address] Cannabinoids Screen Ql (U) Negative Normal Cutoff: 50 ng/mL [facility] Comment on above: Order Comment: For M edical Purposes Only. Nonforensic screen results are considered presumptive and no confirmatory testing will follow. Drugs are detected by immunoassay or Liquid Chromatography Mass Spectrometry (LC-MS/MS). The LC-MS/MS test was developed and its performance characteristics determined by the Toxicology Laboratory at [facility]. It has not been cleared or approved by the FDA. The laboratory is regulated under CLIA as qualified to perform high-complexity testing. This test is used for clinical purposes and should not be regarded as investigational or for research.The following drugs with their lowest level of detection in ng/ml(LOD) are included in this screen:6 Monoacetylmorphine(300), 7 Aminoflunitrazepam(25), 7 Aminoclonazepam(50),7 hydroxymitragynine (100),Alphahydroxymidazolam (200), Alphahydrozyalprazolam(200), Alprazolam(50), Amitriptyline(50), Amphetamine(250), Atenolol(500),Benzoylecgonine(50), Buprenorphine(100), Bupropion(25),Caffeine(74[address]),Chlordiazepoxide(50), Chlorpheniramine(100), Chlorpromazine(50), Citalopram(100), Clonazepam(200), Cocaine(25),Codeine(200), Cotinine(500),Desipramine(50), Desmethyldoxepin(100), Dextromethorphan(100), Diazepam(100), Dihydrocodeine(100), Diltazem(50), Diphenhydramine(100),Doxepin(100),EDDP/methadone(100), Ephedrine/Pseudoephedrine(100),Fentanyl(25),Flunitrazepam(100),F luoxetine(200), Flurazepam(50),Gabapentin(1500), Haloperidol(25), Hydrocodone(100), Hydromorphone(200), Imipramine(50), Ketamine(25), Lidocaine(25),Lorazepam(100), Lysergide(LSD)(25),Maprotiline(200), MDA(250), MDMA(250), Meperidine(50),Midazolam (200),Methadone(50), Methamphetamine(500), Methylphenidate(50), Metoprolol(50), Morphine(200),Nalbuphine(50), Naloxone(200), Norbuprenorphine(300), Nordiazepam(100), Norfentanyl(50),Noroxycodone (100), Norpropoxyphene(50), Nortriptyline(50), Olanzapine(200),Oxazepam(200),Oxycodone(100),Oxymorphone(200), Phencyclidine(PCP)(25), Pheniramine(25), Pregabalin(1500), Promethazine(50), Propoxyphene(100), Propanolol(50), Quetiapine(25), Quinidine(500), Ranitidine(500), Risperidone(100), Sertraline(50),Temazepam(100), Thioridazine(100), Tramadol(50), Trazodone(25), Triazolam(100), Trifluoperazine (100),Venlafaxine(50), Verapamil(100), Zolpidem(200) Performed By: #### U DRG ####[facility] (DEFAULT)[address] [place] [address] Drugs Detected Urine Tox Abnormal Negative [facility] Comment on above: Order Comment: For M edical Purposes Only. Nonforensic screen results are considered presumptive and no confirmatory testing will follow. Drugs are detected by immunoassay or Liquid Chromatography Mass Spectrometry (LC-MS/MS). The LC-MS/MS test was developed and its performance characteristics determined by the Toxicology Laboratory at [facility]. It has not been cleared or approved by the FDA. The laboratory is regulated under CLIA as qualified to perform high-complexity testing. This test is used for clinical purposes and should not be regarded as investigational or for research.The following drugs with their lowest level of detection in ng/ml(LOD) are included in this screen:6 Monoacetylmorphine(300), 7 Aminoflunitrazepam(25), 7 Aminoclonazepam(50),7 hydroxymitragynine (100),Alphahydroxymidazolam (200), Alphahydrozyalprazolam(200), Alprazolam(50), Amitriptyline(50), Amphetamine(250), Atenolol(500),Benzoylecgonine(50), Buprenorphine(100), Bupropion(25),Caffeine(90407),Chlordiazepoxide(50), Chlorpheniramine(100), Chlorpromazine(50), Citalopram(100), Clonazepam(200), Cocaine(25),Codeine(200), Cotinine(500),Desipramine(50), Desmethyldoxepin(100), Dextromethorphan(100), Diazepam(100), Dihydrocodeine(100), Diltazem(50), Diphenhydramine(100),Doxepin(100),EDDP/methadone(100), Ephedrine/Pseudoephedrine(100),Fentanyl(25),Flunitrazepam(100),F luoxetine(200), Flurazepam(50),Gabapentin(1500), Haloperidol(25), Hydrocodone(100), Hydromorphone(200), Imipramine(50), Ketamine(25), Lidocaine(25),Lorazepam(100), Lysergide(LSD)(25),Maprotiline(200), MDA(250), MDMA(250), Meperidine(50),Midazolam (200),Methadone(50), Methamphetamine(500), Methylphenidate(50), Metoprolol(50), Morphine(200),Nalbuphine(50), Naloxone(200), Norbuprenorphine(300), Nordiazepam(100), Norfentanyl(50),Noroxycodone (100), Norpropoxyphene(50), Nortriptyline(50), Olanzapine(200),Oxazepam(200),Oxycodone(100),Oxymorphone(200), Phencyclidine(PCP)(25), Pheniramine(25), Pregabalin(1500), Promethazine(50), Propoxyphene(100), Propanolol(50), Quetiapine(25), Quinidine(500), Ranitidine(500), Risperidone(100), Sertraline(50),Temazepam(100), Thioridazine(100), Tramadol(50), Trazodone(25), Triazolam(100), Trifluoperazine (100),Venlafaxine(50), Verapamil(100), Zolpidem(200) Result Comment: Hydr omorphoneEphedrine - PseudoephedrineLidocaine Performed By: #### U DRG ####[facility] (DEFAULT)[address] [place] [address] TRIGLYCERIDEon 05-23-2022 Triglyceride [Mass/Vol] 178 mg/dL High <150 [facility] Comment on above: Order Comment: While on Propofol. Result Comment: [<15 0 mg/dL: Desirable][150-199 mg/dL: Borderline][200-499 mg/dL: High][>500 mg/dL: Very High] Performed By: #### T RIG, CKB ####[facility] (DEFAULT)[address] [place] [address] URINE DIPSTICK; REFLEX MICRO SCOPY; REFLEX CULTURE PERFORMABLEon 05-23-2022 Appearance (U) Clear Normal Clear [facility] Comment on above: Performed By: #### L [id number] ####[facility] (DEFAULT)[address] [facility] [place] [address] Blood Urine Trace Abnormal Negative [facility] Comment on above: Performed By: #### L [id number], [id number] ####[facility] (DEFAULT)[address] [place] [address] Color (U) Yellow Normal Yellow [facility] Comment on above: Performed By: #### Ar KIMBLE [id number] ####[facility] (DEFAULT)[address] [place] [address] Glucose Ql (U) Negative Normal Negative [facility] Comment on above: Performed By: #### Ar KIMBLE [id number] ####[facility] (DEFAULT)[address] [place] [address] Ketones Ql (U) Negative Normal Negative [facility] Comment on above: Performed By: #### Ar KIMBLE [id number] ####[facility] (DEFAULT)[address] [facility] [place] [address] Leukocyte esterase Test strip Ql (U) Negative Normal Negative [facility] Comment on above: Performed By: #### Ar KIMBLE [id number] ####[facility] (DEFAULT)[address] [place] [address] Nitrites Urine Negative Normal Negative [facility] Comment on above: Performed By: #### Ar KIMBLE [id number] ####[facility] (DEFAULT)[address] [place] [address] pH (U) 6.0 [pH] Normal 5.0-7.0 [facility] Comment on above: Performed By: #### Ar KIMBLE [id number] ####[facility] (DEFAULT)[address] [facility] [place] [address] Protein Urine Trace Abnormal Negative [facility] Comment on above: Performed By: #### Ar [id number], [id number] ####[facility] (DEFAULT)[address] [facility] [place] [address] Specific [place] Urine > High 1.001-1.035 [facility] Comment on above: Performed By: #### L [id number], [id number] ####[facility] (DEFAULT)[address] [facility] [place] [address] Urobilinogen Urine 1.0 E.U./dL Normal 0.2 E.U/d L, 1.0 E.U/dL [facility] Comment on above: Performed By: #### L [id number], [id number] ####[facility] (DEFAULT)[address] [facility] [place] [address] URINE MICROSCOPIC WITH REFLE X TO CULTUREon 05-23-2022 Bacteria ABSENT Normal ABSENT [facility] Comment on above: Performed By: #### L [id number], [id number] ####[facility] (DEFAULT)[address] [facility] [place] [address] RBC Urine 3-5 Abnormal 0-2 [facility] Comment on above: Performed By: #### L [id number], [id number] ####[facility] (DEFAULT)[address] [facility] [place] [address] Squamous/Epithelial Cells ABSENT Normal 1/hpf = 1+, 2-5/hpf = 2+, 0/hpf = 0+, ABSENT [facility] Comment on above: Performed By: #### L [id number], [id number] ####[facility] (DEFAULT)[address] [facility] [place] [address] WBC Urine 0-5 Normal 0-5 [facility] Comment on above: Performed By: #### L [id number], [id number] ####[facility] (DEFAULT)[address] [facility] [place] [address] XR ABDOMEN 1 VIEWon 05-23-19 23 XR ABDOMEN 1 VIEW Normal [facility] XR CHEST PORTABLEon 05-23-19 23 XR CHEST PORTABLE Normal [facility] ABORH TYPE RECONFIRMATIONon 05-22-2022 ABO/RH(D) TYPE Positive Normal [facility] Comment on above: Performed By: #### T YPEC ####[facility] (DEFAULT)[address] [facility] [place] [address] ALCOHOL (ETHANOL),BLOODon Alcohol, Serum <10 Normal <10 [facility] Comment on above: Performed By: #### A LCOSU ####[facility] (DEFAULT)[address] [place] [address] ARTERIAL BLOOD GAS (FULL COLLAZO EL)on 05-22-2022 Base Excess 0.0 mmol/L Normal -3.0-3.0 [facility] Comment on above: Performed By: #### Kassandra ELENA ####[facility] (DEFAULT)[address] [place] [address], [place] [address] Carboxyhemoglobin 1.1 % Normal <=1.5 [facility] Comment on above: Performed By: #### Kassandra ELENA ####[facility] (DEFAULT)[address] [place] [address] [place] [address] Glucose [Mass/Vol] 132 mg/dL High 70-99 [facility] Comment on above: Performed By: #### Kassandra ELENA ####[facility] (DEFAULT)[address] [place] [address], [place] [address] HCO3 (Bld) [Moles/Vol] 24 mmol/L Normal 22-28 [facility] Comment on above: Performed By: #### Kassandra ELENA ####[facility] (DEFAULT)[address] [place] [address], [place] [address] Hematocrit (Bld) [Volume fraction] 43.7 % Normal 40.2-50.4 [facility] Comment on above: Performed By: #### Kassandra ELENA ####[facility] (DEFAULT)[address] [place] [address] Hemoglobin (Bld) [Mass/Vol] 14.2 g/dL Normal 13.4-16.8 [facility] Comment on above: Performed By: #### Kassandra ELENA ####[facility] (DEFAULT)[address] [place] [address] Ionized Calcium, Whole Blood 4.10 mg/dL Low 4.60-5.30 [facility] Comment on above: Performed By: #### G ASALL ####[facility] (DEFAULT)[address] [place] [address] Lactate, Whole Blood 2.3 mmol/L High 0.5-1.6 [facility] Comment on above: Performed By: #### G ULICES ####[facility] (DEFAULT)[address] [place] [address] Methemoglobin 0.9 % Normal <=1.5 [facility] Comment on above: Performed By: #### G ULICES ####[facility] (DEFAULT)[address] [facility] [place] [address] Oxyhemoglobin 98 % Normal 94-98 [facility] Comment on above: Performed By: #### Kassandra ELENA ####[facility] (DEFAULT)[address] [facility] [place] [address] pCO2 36 mm Hg Normal 32-48 [facility] Comment on above: Performed By: #### G ULICES ####[facility] (DEFAULT)[address] [place] [address] pH (Bld) 7.43 [pH] Normal 7.35-7.45 [facility] Comment on above: Performed By: #### G ULICES ####[facility] (DEFAULT)[address] [place] [address] pO2 257 mm Hg High 83-108 [facility] Comment on above: Performed By: #### G ASAARCENIO ####[facility] (DEFAULT)[address] [place] [address] Potassium [Moles/Vol] 3.7 mmol/L Normal 3.5-5.0 [facility] Comment on above: Performed By: #### G GERALDOLL ####[facility] (DEFAULT)[address] [facility] [place] [address] sO2 100 % High 94-98 [facility] Comment on above: Performed By: #### G GERALDOLL ####[facility] (DEFAULT)[address] [facility] [place] [address] Sodium [Moles/Vol] 138 mmol/L Normal 135-145 [facility] Comment on above: Performed By: #### G GERALDOLL ####[facility] (DEFAULT)[address] [facility] [place] [address] Specimen type Nom (Spec) Arterial Normal [facility] Comment on above: Performed By: #### G ULICES ####[facility] (DEFAULT)[address] [facility] [place] [address] Absolute lymphocyte countOrd ered By: Dr. Alexis on 05-22-2022 Lymphocytes Auto (Unsp spec) [#/Vol] 1.79 10*3/uL 0.83-4.51 [facility] Basophil percentageOrdered B y: Dr. Alexis on 05-22-2022 Basophils/100 WBC (Bld) 0.8 % 0-1 [facility] Chloride [Moles/Vol] 106 mmol/L 98-107 [facility] Eosinophils/100 WBC (Bld) 2.1 % 0-5 [facility] Glucose [Mass/Vol] 121 mg/dL 74-106 [facility] Comment on above: Fasting Glucose resu lt from 100 to 125 mg/dL suggests IMPAIRED HOMEOSTASIS per A.D.A. criteria. Neutrophils (Bld) [#/Vol] 4.9 10*3/uL 2.0-7.7 [facility] Neutrophils/100 WBC (Bld) 64.8 % 47-70 [facility] Potassium [Moles/Vol] 4.4 mmol/L 3.5-5.1 [facility] Sodium [Moles/Vol] 139 mmol/L 136-145 [facility] WBC (Bld) [#/Vol] 7.6 10*3/uL 4.4-11.0 [facility] Blood erythrocytes count (nu mber/volume)Ordered By: Dr. Alexis on 05-22-2022 RBC (Bld) [#/Vol] 5.72 10*6/uL 4.6-6.2 [facility] Blood hemoglobin measurement (mass/volume)Ordered By: Dr. Alexis on 05-22-2022 Hemoglobin (Bld) [Mass/Vol] 16.8 g/dL 13.0-16.5 [facility] Blood lymphocytes/100 leukoc ytesOrdered By: Dr. Alexis on 05-22-2022 Lymphocytes/100 WBC (Bld) 23.7 % 19-41 [facility] Blood monocytes/100 leukocyt esOrdered By: Dr. Alexis on 05-22-2022 Monocytes/100 WBC (Bld) 8.3 % 0-10 [facility] Blood platelet mean volumeOr dered By: Dr. Alexis on 05-22-2022 Platelet mean volume (Bld) [Entitic vol] 9.0 fL 6.2-12.0 [facility] CBC AND ELECTRONIC DIFFon Basophils (Bld) [#/Vol] 0.07 10*3/uL Normal 0.00-0.09 [facility] Comment on above: Performed By: #### A 1CB, [id number] ####[facility] (DEFAULT)[address] [facility] [place] [address] Basophils/100 WBC (Bld) 0.4 % Normal [facility] Comment on above: Performed By: #### Rosa 1CB, [id number] ####[facility] (DEFAULT)[address] [facility] [place] [address] DIFF STATUS Electronic Differential Normal [facility] Comment on above: Performed By: #### A 1CB, [id number] ####[facility] (DEFAULT)[address] [facility] [place] [address] Eosinophils (Bld) [#/Vol] 0.07 10*3/uL Normal 0.00-0.48 [facility] Comment on above: Performed By: #### A 1CB, [id number] ####[facility] (DEFAULT)[address] [place] [address] Eosinophils/100 WBC (Bld) 0.4 % Normal [facility] Comment on above: Performed By: #### A 1CB, [id number] ####[facility] (DEFAULT)[address] [place] [address] Hematocrit (Bld) [Volume fraction] 48.2 % Normal 39.6-48.8 [facility] Comment on above: Performed By: #### A 1CB, [id number] ####[facility] (DEFAULT)[address] [facility] [place] [address] Hemoglobin (Bld) [Mass/Vol] 16.6 g/dL Normal 13.4-16.8 [facility] Comment on above: Performed By: #### Rosa 1CB, [id number] ####[facility] (DEFAULT)[address] [place] [address] Immature Grans % 0.3 % Normal [facility] Comment on above: Performed By: #### Rosa 1CB, [id number] ####[facility] (DEFAULT)[address] [place] [address] Immature Grans Absolute 0.04 K/uL Normal <=0.07 [facility] Comment on above: Performed By: #### Rosa 1CB, [id number] ####[facility] (DEFAULT)[address] [facility] [place] [address] Lymphocytes (Bld) [#/Vol] 1.33 10*3/uL Normal 0.83-3.57 [facility] Comment on above: Performed By: #### A 1CB, [id number] ####[facility] (DEFAULT)[address] [place] [address] Lymphocytes/100 WBC (Bld) 8.4 % Normal [facility] Comment on above: Performed By: #### Rosa 1CB, [id number] ####[facility] (DEFAULT)[address] [facility] [place] [address] MCV (RBC) [Entitic vol] 84.6 fL Normal 79.0-94.5 [facility] Comment on above: Performed By: #### A 1CB, [id number] ####[facility] (DEFAULT)[address] [facility] [place] [address] Mean Cell Hgb 29.1 pg Normal 26.1-33.3 [facility] Comment on above: Performed By: #### A 1CB, [id number] ####[facility] (DEFAULT)[address] [facility] [place] [address] Mean Cell Hgb Conc 34.4 g/dL Normal 31.9-36.5 [facility] Comment on above: Performed By: #### Rosa 1CB, [id number] ####[facility] (DEFAULT)[address] [facility] [place] [address] Monocytes (Bld) [#/Vol] 0.71 10*3/uL Normal 0.24-0.93 [facility] Comment on above: Performed By: #### Rosa 1CB, [id number] ####[facility] (DEFAULT)[address] [facility] [place] [address] Monocytes/100 WBC (Bld) 4.5 % Normal [facility] Comment on above: Performed By: #### Rosa 1CB, [id number] ####[facility] (DEFAULT)[address] [facility] [place] [address] Nucleated RBC 0.0 /100 WBC Normal <=0.2 [facility] Comment on above: Performed By: #### Rosa 1CB, [id number] ####[facility] (DEFAULT)[address] [facility] [place] [address] Platelet mean volume (Bld) [Entitic vol] 9.0 fL Normal 8.7-12.3 [facility] Comment on above: Performed By: #### Rosa 1CB, [id number] ####[facility] (DEFAULT)[address] [place] [address] Platelets (Bld) [#/Vol] 304 10*3/uL Normal 146-337 [facility] Comment on above: Performed By: #### A 1CB, [id number] ####[facility] (DEFAULT)[address] [place] [address] RBC (Bld) [#/Vol] 5.70 10*6/uL Normal 4.38-5.83 [facility] Comment on above: Performed By: #### A 1CB, [id number] ####[facility] (DEFAULT)[address] [place] [address] RBC Distribution 12.8 % Normal 10.9-14.3 [facility] Comment on above: Performed By: #### A 1CB, [id number] ####[facility] (DEFAULT)[address] [facility] [place] [address] Segs + Bands Auto 86.0 % Normal [facility] Comment on above: Performed By: #### Rosa 1CB, [id number] ####[facility] (DEFAULT)[address] [place] [address] Segs + Bands,Absolute Auto 13.54 K/uL High 1.57-6.19 [facility] Comment on above: Performed By: #### Rosa 1CB, [id number] ####[facility] (DEFAULT)[address] [place] [address] WBC (Bld) [#/Vol] 15.76 10*3/uL High 3.73-10.10 [facility] Comment on above: Performed By: #### A 1CB, [id number] ####[facility] (DEFAULT)[address] [place] [address] CHM 7 - EDon 05-22-2022 Anion gap [Moles/Vol] 13 mmol/L Normal 7-17 [facility] Comment on above: Performed By: #### L IPDR, HFP, C7ED, LABHSTI1 ####[facility] (DEFAULT)[address] [facility] [place] [address] Chloride [Moles/Vol] 102 mmol/L Normal 98-108 [facility] Comment on above: Performed By: #### L IPDR, HFP, C7ED, LABHSTI1 ####[facility] (DEFAULT)[address] [facility] [place] [address] CO2 [Moles/Vol] 25 mmol/L Normal 21-31 [facility] Comment on above: Performed By: #### L IPDR, HFP, C7ED, LABHSTI1 ####[facility] (DEFAULT)[address] [facility] [place] [address] Creatinine [Mass/Vol] 1.08 mg/dL Normal 0.70-1.30 [facility] Comment on above: Performed By: #### L IPDR, HFP, C7ED, LABHSTI1 ####[facility] (DEFAULT)[address] [facility] [place] [address] GFR/1.73 sq M.predicted among non-blacks MDRD (S/P/Bld) [Vol rate/Area] 90 mL/min/{1.73_m2} Normal >=60 [facility] Comment on above: Result Comment: Repo rted eGFR is based on the CKD-EPI 2020 equation using creatinine, age, and sex. Performed By: #### L IPDR, HFP, C7ED, LABHSTI1 ####[facility] (DEFAULT)[address] [facility] [place] [address] Glucose [Mass/Vol] 160 mg/dL High 70-99 [facility] Comment on above: Performed By: #### L IPDR, HFP, C7ED, LABHSTI1 ####[facility] (DEFAULT)[address] [facility] [place] [address] Osmolality [Osmolality] 290 mosm/kg Normal 278-305 [facility] Comment on above: Performed By: #### L IPDR, HFP, C7ED, LABHSTI1 ####[facility] (DEFAULT)[address] [place] [address] Potassium [Moles/Vol] 4.9 mmol/L Normal 3.5-5.0 [facility] Comment on above: Result Comment: Slig htly hemolyzed Performed By: #### L IPDR, HFP, C7ED, LABHSTI1 ####[facility] (DEFAULT)[address] [place] [address] Sodium [Moles/Vol] 135 mmol/L Normal 135-145 [facility] Comment on above: Performed By: #### L IPDR, HFP, C7ED, LABHSTI1 ####[facility] (DEFAULT)[address] [place] [address] Urea nitrogen [Mass/Vol] 16 mg/dL Normal 7-25 [facility] Comment on above: Performed By: #### L IPDR, HFP, C7ED, LABHSTI1 ####[facility] (DEFAULT)[address] [facility] [place] [address] Urea nitrogen/Creatinine [Mass ratio] 15 mg/mg Normal [facility] Comment on above: Performed By: #### L IPDR, HFP, C7ED, LABHSTI1 ####[facility] (DEFAULT)[address] [facility] [place] [address] COVID-19 virus antigen assay Ordered By: Dr. Alexis on 05-22-2022 SARS-CoV-2 (COVID-19) Ag IA.rapid Ql (Resp) [facility] Determination of erythrocyte mean corpuscular volume (MCV)Ordered By: Dr. Alexis on 05-22-2022 MCV (RBC) [Entitic vol] 86.5 fL 80-94 [facility] Glucose Glucometer (BldC) [M ass/Vol]Ordered By: Dr. Alexis on 05-22-2022 Glucose [Mass/Vol] 117 mg/dL 74-106 [facility] Comment on above: MANAGEMENT OF PATIEN T CARE PER NURSING PROTOCOL HEMOGLOBIN A1Con 05-22-2022 Glucose [Mass/Vol] 111 mg/dL Normal [facility] Comment on above: Performed By: #### A 1CB, [id number] ####[facility] (DEFAULT)[address] [place] [address] HbA1c (Bld) [Mass fraction] 5.5 % Normal 4.7-5.6 [facility] Comment on above: Performed By: #### A 1CB, [id number] ####[facility] (DEFAULT)[address] [facility] [place] [address] HEPATIC FUNCTION PANELon Albumin [Mass/Vol] 4.6 g/dL Normal 3.5-5.0 [facility] Comment on above: Performed By: #### L IPDR, HFP, C7ED, LABHSTI1 ####[facility] (DEFAULT)[address] [place] [address] ALP [Catalytic activity/Vol] 77 U/L Normal 32-126 [facility] Comment on above: Performed By: #### L IPDR, HFP, C7ED, LABHSTI1 ####[facility] (DEFAULT)[address] [place] [address] ALT [Catalytic activity/Vol] 31 U/L Normal 10-52 [facility] Comment on above: Result Comment: Slig htly hemolyzed Performed By: #### L IPDR, HFP, C7ED, LABHSTI1 ####[facility] (DEFAULT)[address] [place] [address] AST [Catalytic activity/Vol] 25 U/L Normal 10-39 [facility] Comment on above: Result Comment: Slig htly hemolyzed Performed By: #### L IPDR, HFP, C7ED, LABHSTI1 ####[facility] (DEFAULT)[address] [facility] [place] [address] Bilirubin [Mass/Vol] 1.3 mg/dL Normal <1.5 [facility] Comment on above: Result Comment: Slig htly hemolyzed Performed By: #### L IPDR, HFP, C7ED, LABHSTI1 ####[facility] (DEFAULT)[address] [facility] [place] [address] Bilirubin.indirect [Mass/Vol] 0.2 mg/dL Normal <0.3 [facility] Comment on above: Result Comment: Slig htly hemolyzed Performed By: #### L IPDR, HFP, C7ED, LABHSTI1 ####[facility] (DEFAULT)[address] [facility] [place] [address] Protein [Mass/Vol] 7.7 g/dL Normal 6.4-8.3 [facility] Comment on above: Performed By: #### L IPDR, HFP, C7ED, LABHSTI1 ####[facility] (DEFAULT)[address] [place] [address], [place] [address] HIGH SENSITIVITY TROPONIN I - SINGLE ORDERon 05-22-2022 hs-Troponin I <3 Normal <53 [facility] Comment on above: Order Comment: Acute Coronary Syndrome (ACS): Initial Evaluation and Management:[email or web address] [email or web address]%[email or web address] Performed By: #### L IPDR, HFP, C7ED, LABHSTI1 ####[facility] (DEFAULT)[address] [place] [id number] Hematocrit Auto (Bld) [Volum e fraction]Ordered By: Dr. Alexis on 05-22-2022 Hematocrit (Bld) [Volume fraction] 49.5 % 40-54 [facility] INR in Blood by Coagulation assayOrdered By: Dr. Alexis on 05-22-2022 INR Coag (Bld) [Relative time] 1.1 {INR} [facility] LIPID PANEL WITH REFLEX TO M EASURED LDLon 05-22-2022 Calculated LDL Cholesterol 127 mg/dL High 0-99 [facility] Comment on above: Result Comment: [<10 0 mg/dL: Optimal][100-129 mg/dL: Near Optimal][130-159 mg/dL: Borderline High][160-189 mg/dL: High][>189 mg/dL: Very High] Performed By: #### L IPDR, HFP, C7ED, LABHSTI1 ####[facility] (DEFAULT)[address] [place] [id number] Cholesterol [Mass/Vol] 189 mg/dL Normal <200 [facility] Comment on above: Result Comment: [<20 0 mg/dL: Desirable][200-239 mg/dL: Borderline High][>239 mg/dL: High] Performed By: #### L IPDR, HFP, C7ED, LABHSTI1 ####[facility] (DEFAULT)[address] [place] [address] Cholesterol in HDL [Mass/Vol] 39 mg/dL Low >=40 [facility] Comment on above: Result Comment: [<40 mg/dL: Low (High Risk)][>59 mg/dL: High (Low Risk)] Performed By: #### L IPDR, HFP, C7ED, LABHSTI1 ####[facility] (DEFAULT)[address] [place] [address], [place] [address] Non HDL Cholesterol 150 mg/dL High <130 [facility] Comment on above: Performed By: #### L IPDR, HFP, C7ED, LABHSTI1 ####[facility] (DEFAULT)[address] [place] [address], [place] [address] Total Cholesterol/HDL Ratio 4.8 High <4.5 [facility] Comment on above: Performed By: #### L IPDR, HFP, C7ED, LABHSTI1 ####[facility] (DEFAULT)[address] [place] [address] Triglyceride [Mass/Vol] 114 mg/dL Normal <150 [facility] Comment on above: Result Comment: [<15 0 mg/dL: Desirable][150-199 mg/dL: Borderline][200-499 mg/dL: High][>500 mg/dL: Very High] Performed By: #### L IPDR, HFP, C7ED, LABHSTI1 ####[facility] (DEFAULT)[address] [place] [address] Laboratory - Chemistry and C hemistry - challengeOrdered By: Dr. Alexis on 05-22-2022 CO2 [Moles/Vol] 30.0 mmol/L 21.0-32.0 [facility] Urea nitrogen/Creatinine [Mass ratio] 15.2 mg/mg 10-20 [facility] Laboratory - CoagulationOrde red By: Dr. Alexis on 05-22-2022 aPTT Coag (Bld) [Time] 31.9 s 24.1-36.2 [facility] PT Coag (PPP) [Time] 13.5 s 11.7-14.9 [facility] Laboratory - Hematology and Cell countsOrdered By: Dr. Alexis on 05-22-2022 Erythrocyte distribution width (RBC) [Entitic vol] 38.9 fL 35.1-43.9 [facility] Erythrocyte distribution width (RBC) [Ratio] 12.4 % 11.6-14.6 [facility] Immature granulocytes/100 WBC (Bld) 0.300 % 0.0-0.9 [facility] Comment on above: IG% - Immature Granu locytes (promyelocytes, myelocytes and metamyelocytes) > 1% indicates that a LEFT SHIFT is Present. MCH (RBC) [Entitic mass] 29.4 pg 27.0-32.0 [facility] Nucleated RBC/100 WBC (Bld) [Ratio] 0 % 0-5 [facility] MCHC Auto (RBC) [Mass/Vol]Or dered By: Dr. Alexis on 05-22-2022 MCHC (RBC) [Mass/Vol] 33.9 g/dL 32-36 [facility] No Panel InformationOrdered By: Dr. Alexis on 05-22-2022 Estimated Creatinine Clearance Calc 86.08 ml/min [facility] Estimated GFR (MDRD) Amer 101 mL/min >60 [facility] Comment on above: GFR Calc Estimated GFR (MDRD) Non-Af Amer 84 mL/min >60 [facility] Comment on above: Non- GFR Calc Troponin I High Sensitivity 7 pg/mL 3.0-78.0 [facility] Comment on above: Please Note: New Bree t Units and Gender Specific Reference Ranges. For more information see Policy Stat Procedure [place] High Sensitivity Troponin (TNIH) and attachments. PTINR-STROKEon 05-22-2022 INR Coag (PPP) [Relative time] 1.1 {INR} Normal 0.9-1.1 [facility] Comment on above: Performed By: #### P TT, PTISTR ####[facility] (DEFAULT)[address] [facility] [place] [address] PT Coag (PPP) [Time] 14.1 s Normal 11.9-14.2 [facility] Comment on above: Performed By: #### P TT, PTISTR ####[facility] (DEFAULT)[address] [facility] [place] [address] PTTon 05-22-2022 aPTT Coag (Bld) [Time] 29.2 s Normal 24.0-34.3 [facility] Comment on above: Performed By: #### P TT, PTISTR ####[facility] (DEFAULT)[address] [facility] [place] [address] Platelets bldOrdered By: Dr. Alexis on 05-22-2022 Platelets (Bld) [#/Vol] 272 10*3/uL 150-450 [facility] Serum or plasma calcium crystal urement (mass/volume)Ordered By: Dr. Alexis on 05-22-2022 Calcium [Mass/Vol] 9.4 mg/dL 8.5-10.1 [facility] Serum or plasma creatinine m easurement (mass/volume)Ordered By: Dr. Alexis on 05-22-2022 Creatinine [Mass/Vol] 1.05 mg/dL 0.70-1.30 [facility] Comment on above: The validity of the calculated GFR & GFRAA in patients over 70 years has not been determined. Clinical correlation is essential. Serum or plasma urea nitroge n measurement (mass/volume)Ordered By: Dr. Alexis on 05-22-2022 Urea nitrogen [Mass/Vol] 16 mg/dL 7-18 [facility] TYPE AND SCREENon 05-22-2022 ABO/RH(D) TYPE Positive Normal [facility] Comment on above: Performed By: #### X M ####[facility] (DEFAULT)[address] [place] [address] Thin prep Papanicolaou smear with manual screeningOrdered By: Dr. Alexis on 05-22-2022 Thin prep Papanicolaou smear with manual screening 3 5-15 [facility] COVID-19 virus antigen assay SARS-CoV-2 (COVID-19) Ag IA.rapid Ql (Resp) [facility] Work Phone: Vital Signs Date Time Vital Sign Value Performing Clinician Facility 10-29-2024 09:00-0400 Body temperature 97.4 [degF] Dr. Ander Nicholson DO Work Phone: [facility] 10-29-2024 09:00-0400 Diastolic blood pressure 94 mm[Hg] Dr. Ander Nicholson DO Work Phone: [facility] 10-29-2024 09:00-0400 Heart rate 91 /min Dr. Ander Nicholson DO Work Phone: [facility] 10-29-2024 09:00-0400 Respiratory rate 16 /min Dr. Ander Nicholson DO Work Phone: [facility] 10-29-2024 09:00-0400 SaO2% (BldA) [Mass fraction] 95 % Dr. Ander Nicholson DO Work Phone: [facility] 10-29-2024 09:00-0400 Systolic blood pressure 128 mm[Hg] Dr. Ander Nicholson DO Work Phone: [facility] 10-27-2024 14:32-0400 Body height 167.[address] Ander Nicholson DO Work Phone: [facility] 10-27-2024 14:32-0400 Body mass index (BMI) [Ratio] 36.3 kg/m2 Dr. Ander Nicholson DO Work Phone: [facility] 10-27-2024 14:32-0400 Body weight 102.[address] Ander Nicholson DO Work Phone: [facility] 10-09-2024 17:51-0400 Body temperature 98.1 [degF] Dr. Ander Nicholson DO Work Phone: [facility] 10-09-2024 17:51-0400 Diastolic blood pressure 78 mm[Hg] Dr. Ander Nicholson DO Work Phone: [facility] 10-09-2024 17:51-0400 Heart rate 98 /min Dr. Ander Nicholson DO Work Phone: [facility] 10-09-2024 17:51-0400 Respiratory rate 16 /min Dr. Ander Nicholson DO Work Phone: [facility] 10-09-2024 17:51-0400 SaO2% (BldA) [Mass fraction] 99 % Dr. Ander Nicholson DO Work Phone: [facility] 10-09-2024 17:51-0400 Systolic blood pressure 125 mm[Hg] Dr. Ander Nicholson DO Work Phone: [facility] 10-09-2024 16:22-0400 Body mass index (BMI) [Ratio] 35.4 kg/m2 Dr. Ander Nicholson DO Work Phone: [facility] 10-09-2024 16:22-0400 Body weight 99.[address] Ander Nicholson DO Work Phone: [facility] 10-09-2024 16:13-0400 Body height 167.[address] Ander Nicholson DO Work Phone: [facility] 04-08-2023 19:25-0500 Diastolic blood pressure 91 mm[Hg] [facility] 04-08-2023 19:25-0500 SaO2% (BldA) [Mass fraction] 97 % [facility] 04-08-2023 19:25-0500 Systolic blood pressure 132 mm[Hg] [facility] 04-08-2023 17:27-0500 Body mass index (BMI) [Ratio] 35.5 kg/m2 [facility] 04-08-2023 17:27-0500 Body weight 99.97 kg [facility] 04-08-2023 16:58-0500 Body height 167.64 cm [facility] 04-08-2023 16:58-0500 Body temperature 98.6 [degF] [facility] 04-08-2023 16:58-0500 Heart rate 92 /min [facility] 04-08-2023 16:58-0500 Respiratory rate 18 /min [facility] 12-14-2022 03:39-0400 Body height 167.[address] Ander Nicholson Work Phone: [facility] 12-14-2022 03:39-0400 Body mass index (BMI) [Ratio] 35.3 kg/m2 Dr. Ander Nicholson Work Phone: [facility] 12-14-2022 03:39-0400 Body temperature 98.2 [degF] Dr. Ander Nicholson Work Phone: [facility] 12-14-2022 03:39-0400 Body weight 99.[address] Ander Nicholson Work Phone: [facility] 12-14-2022 03:39-0400 Diastolic blood pressure 85 mm[Hg] Dr. Ander Nicholson Work Phone: [facility] 12-14-2022 03:39-0400 Heart rate 83 /min Dr. Ander Nicholson Work Phone: [facility] 12-14-2022 03:39-0400 Respiratory rate 18 /min Dr. Ander Nicholson Work Phone: [facility] 12-14-2022 03:39-0400 SaO2% (BldA) [Mass fraction] 98 % Dr. Ander Nicholson Work Phone: [facility] 12-14-2022 03:39-0400 Systolic blood pressure 111 mm[Hg] Dr. Ander Nicholson Work Phone: [facility] 09-17-2022 13:17-0400 Body height 167.6 cm Tiffanierosa Ronquillo FISCAL ASSISTANT-CONCIERGE MANAGER Work Phone: [facility] 09-17-2022 13:17-0400 Body mass index (BMI) [Ratio] 37.93 kg/m2 Tiffanierosa Ronquillo FISCAL ASSISTANT-CONCIERGE MANAGER Work Phone: [facility] 09-17-2022 13:17-0400 Body temperature 98.71 [degF] Tiffaniehazel Ronquillo FISCAL ASSISTANT-CONCIERGE MANAGER Work Phone: [facility] 09-17-2022 13:17-0400 Body weight 106.59 kg Tiffanie Westfalljesus FISCAL ASSISTANT-CONCIERGE MANAGER Work Phone: [facility] 09-17-2022 13:17-0400 Diastolic blood pressure 81 mm[Hg] Tiffanierosa Ronquillo FISCAL ASSISTANT-CONCIERGE MANAGER Work Phone: [facility] 09-17-2022 13:17-0400 Heart rate 83 /min Tiffanierosa Ronquillo FISCAL ASSISTANT-CONCIERGE MANAGER Work Phone: [facility] 09-17-2022 13:17-0400 SaO2% (BldA) [Mass fraction] 97 % Tiffanie Ronquillo FISCAL ASSISTANT-CONCIERGE MANAGER Work Phone: [facility] 09-17-2022 13:17-0400 Systolic blood pressure 120 mm[Hg] Tiffanie Ronquillo FISCAL ASSISTANT-CONCIERGE MANAGER Work Phone: [facility] 08-24-2022 10:15-0400 Body temperature 97.9 [degF] Dr. Ander Nicholson Work Phone: [facility] 08-24-2022 10:15-0400 Diastolic blood pressure 79 mm[Hg] Dr. Ander Nicholson Work Phone: [facility] 08-24-2022 10:15-0400 Heart rate 88 /min Dr. Ander Nicholson Work Phone: [facility] 08-24-2022 10:15-0400 Respiratory rate 18 /min Dr. Ander Nicholson Work Phone: [facility] 08-24-2022 10:15-0400 SaO2% (BldA) [Mass fraction] 99 % Dr. Ander Nicholson Work Phone: [facility] 08-24-2022 10:15-0400 Systolic blood pressure 113 mm[Hg] Dr. Ander Nicholson Work Phone: [facility] 08-24-2022 08:40-0400 Body mass index (BMI) [Ratio] 34.2 kg/m2 Dr. Ander Nicholson Work Phone: [facility] 08-22-2022 17:01-0400 Body height 167.[address] Ander Nicholson Work Phone: [facility] 08-22-2022 17:01-0400 Body weight 96.[address] Ander Nicholson Work Phone: [facility] 08-05-2022 11:56-0400 Body temperature 98.01 [degF] Eyad Mujica MD, PhD Work Phone: [facility] 08-05-2022 11:56-0400 Diastolic blood pressure 77 mm[Hg] Eyad Mujica MD, PhD Work Phone: [facility] 08-05-2022 11:56-0400 Heart rate 89 /min Eyad Mujica MD, PhD Work Phone: 5(355)349-069845 [place] [address] 08-05-2022 11:56-0400 Respiratory rate 16 /min Eyad Mujica MD, PhD Work Phone: 9(438)621-868145 [place] [address] 08-05-2022 11:56-0400 SaO2% (BldA) [Mass fraction] 98 % Eyad Mujica MD, PhD Work Phone: 5(943)557-170745 [place] [address] 08-05-2022 11:56-0400 Systolic blood pressure 123 mm[Hg] Eyad Mujica MD, PhD Work Phone: 8(396)345-719945 [place] [address] 08-01-2022 06:53-0400 Body height 167.6 cm Eyad Mujica MD, PhD Work Phone: 2(681)466-083545 [place] [address] 08-01-2022 06:53-0400 Body mass index (BMI) [Ratio] 36.32 kg/m2 Eyad Mujica MD, PhD Work Phone: 5(445)585-672245 [place] [address] 08-01-2022 06:53-0400 Body weight 102.06 kg Eyad Mujica MD, PhD Work Phone: 4(790)328-760745 [place] [address] Comment on above: Patient stated. 07-30-2022 13:01-0400 Body height 167.6 cm Eyad Mujica MD, PhD Work Phone: 4(077)[phone] [place] [address] 07-30-2022 13:01-0400 Body mass index (BMI) [Ratio] 39.22 kg/m2 Eyad Mujica MD, PhD Work Phone: 0(202)400-204945 [place] [address] 07-30-2022 13:01-0400 Body weight 110.22 kg Eyad Mujica MD, PhD Work Phone: 5(248)[phone] [place] [address] 07-30-2022 13:01-0400 Diastolic blood pressure 89 mm[Hg] Eyad Mujica MD, PhD Work Phone: 0(268)744-943945 [place] [address] 07-30-2022 13:01-0400 Heart rate 92 /min Eyad Mujica MD, PhD Work Phone: [facility] 07-30-2022 13:01-0400 Systolic blood pressure 128 mm[Hg] Eyad Mujica MD, PhD Work Phone: [facility] 07-19-2022 13:30-0500 Body temperature 98.1 [degF] Dr. Ander Nicholson Work Phone: [facility] 07-19-2022 13:30-0500 Diastolic blood pressure 82 mm[Hg] Dr. Ander Nicholson Work Phone: [facility] 07-19-2022 13:30-0500 Heart rate 89 /min Dr. Ander Nicholson Work Phone: [facility] 07-19-2022 13:30-0500 Respiratory rate 16 /min Dr. Ander Nicholson Work Phone: [facility] 07-19-2022 13:30-0500 SaO2% (BldA) [Mass fraction] 96 % Dr. Ander Nicholson Work Phone: [facility] 07-19-2022 13:30-0500 Systolic blood pressure 118 mm[Hg] Dr. Ander Nicholson Work Phone: [facility] 07-19-2022 05:05-0500 Body mass index (BMI) [Ratio] 34.1 kg/m2 Dr. Ander Nicholson Work Phone: [facility] 07-19-2022 05:05-0500 Body weight [address] Ander Nicholson Work Phone: [facility] 05-22-2022 11:20-0500 Diastolic blood pressure 81 mm[Hg] [facility] 05-22-2022 11:20-0500 Heart rate 78 /min [facility] 05-22-2022 11:20-0500 Respiratory rate 16 /min [facility] 05-22-2022 11:20-0500 SaO2% (BldA) [Mass fraction] 98 % [facility] 05-22-2022 11:20-0500 Systolic blood pressure 123 mm[Hg] [facility] 05-22-2022 08:47-0500 Body height 167.64 cm [facility] Work Phone: 05-22-2022 08:47-0500 Body mass index (BMI) [Ratio] 37.7 kg/m2 [facility] 05-22-2022 08:47-0500 Body weight 106 kg [facility] 05-22-2022 08:09-0500 Body temperature 98.2 [degF] [facility] Encounters Encounter Date Encounter Type Care Provider Facility Start: 10-29-2024 Non-patient / [facility] Start: 10-27-2024 Encounter for other preprocedural examination Adonay Alexander [facility] Start: 10-27-2024 Non-patient / Non-visit Dr. Ha FISH [facility] Work Phone: Start: 10-27-2024 ambulatory Jerry Lujan [facility] ility:[facility] Start: 10-27-2024 End: 10-29-2024 Evaluation and management of inpatient Dr. Adonay Alexander MD -[facility] 3 Work Phone: Start: 10-27-2024 End: 10-29-[address] Ander Nicholson DO Work Phone: [facility] Work Phone: Start: 10-27-2024 ambulatory Ander Nicholson Facility: [facility] Start: 10-27-2024 Non-patient / Non-visit [facility] Start: 10-14-2024 End: 10-14-[address] Adonay [facility] MD -[facility] Work Phone: Start: 10-14-2024 End: 10-14-[address] Ander Nicholson DO Work Phone: [facility] Work Phone: Start: 10-09-2024 ambulatory Ander Nicholson Facility: [facility] Start: 10-09-2024 Non-patient / Non-visit Dr. Jarett Alexander MD -[facility] Start: 10-09-2024 End: 10-09-2024 Emergency department patient visit Dr. Ander Nicholson DO Work Phone: -Emergency Department Work Phone: Start: 02-14-2024 End: 02-14-2024 ambulatory [facility] Facility:[facility] Start: 01-27-2024 Encounter for genera l adult medical examination without abnormal findings [facility] Start: 01-01-2024 End: 01-01-2024 ambulatory [facility] Facility:[facility] Start: 09-10-2023 End: 09-10-2023 ambulatory [facility] Work Phone: Start: 09-10-2023 End: 09-10-2023 Discharged Recurring [facility]-Physical Therapy Work Phone: Start: 05-07-2023 End: 05-07-2023 ambulatory [facility] Work Phone: Start: 05-07-2023 End: 05-07-2023 Patient encounter procedure [facility] Work Phone: Start: 04-08-2023 End: 04-08-2023 Emergency department patient visit [facility]-Emergency Department Work Phone: Start: 03-27-2023 End: 03-27-2023 Patient encounter procedure [facility]-Radiology, [place] Work Phone: Start: 02-17-2023 End: 02-17-2023 Patient encounter procedure [facility] Start: 02-12-2023 End: 02-12-2023 ambulatory [facility] Work Phone: Start: 02-12-2023 End: 02-12-2023 Discharged Recurring [facility]-Speech Therapy Work Phone: Start: 12-14-2022 End: 12-14-2022 Emergency department patient visit Dr. Ander Nicholson Work Phone: [facility]-Emergency Department Work Phone: Start: 12-13-[address] Ander Nicholson Work Phone: [facility]-Speech Therapy Work Phone: Start: 10-24-[address] Ander Nicholson Work Phone: [facility]-Occupational Therapy Start: 10-19-2022 End: 10-19-[address] Ander Nicholson Work Phone: [facility] Work Phone: Start: 10-19-2022 End: 10-19-[address] Ander Nicholson Work Phone: [facility]-Laboratory Start: 09-17-2022 ambulatory ANDER NICHOLSON [facility] y:[facility] Start: 09-17-2022 End: 09-17-2022 Office outpatient visit 25 minutes Eyad Mujica MD, PhD Work Phone: [facility] Comment on above: Acquired skull defec t (Primary Dx) Start: 09-05-[address] Ander Nicholson Work Phone: [facility]-Physical Therapy Start: 09-03-2022 Non-patient / Non-visit Dr. Bassam Nicholson Work Phone: [facility] Start: 09-02-2022 Non-patient / Non-visit Dr. Bassam Nicholson Work Phone: [facility] Start: 09-02-2022 End: 09-02-[address] Ander Nicholson Work Phone: [facility] Work Phone: Start: 09-02-2022 End: 09-02-[address] Ander Nicholson Work Phone: [facility]-Cardiovascular Services Start: 08-23-2022 Non-patient / Non-visit Dr. Bassam Nicholson Work Phone: [facility] Start: 08-22-2022 Non-patient / Non-visit Dr. Bassam Nicholson Work Phone: [facility] Start: 08-19-2022 Non-patient / Non-visit Dr. Bassam Nicholson Work Phone: [facility] Start: 08-15-2022 Non-patient / Non-visit Dr. Bassam Nicholson Work Phone: [facility] Start: 08-14-2022 Non-patient / Non-visit Dr. Bassam Nicholson Work Phone: [facility] Start: 08-08-2022 Non-patient / Non-visit Dr. Bassam Nicholson Work Phone: [facility] Start: 08-06-2022 Non-patient / Non-visit Dr. Bassam Nicholson Work Phone: [facility] Start: 08-05-2022 End: 08-24-2022 Evaluation and management of inpatient Dr. Ander Nicholson Work Phone: [facility]-Rehab Unit Start: 08-01-2022 End: 08-05-2022 Evaluation and management of inpatient SELF SELF Facility:[facility] Start: 08-01-2022 End: 08-05-2022 Evaluation and management of inpatient Eyad Mujica MD, PhD Work Phone: [facility] Comment on above: Acquired skull defec t Start: 07-30-2022 ambulatory LORRAINE Nunez y:[facility] Start: 07-30-2022 End: 07-30-2022 Postop follow up visit related to original px Eyad Mujica MD, PhD Work Phone: [facility] Comment on above: Acquired skull defec t (Primary Dx) Start: 07-30-2022 ambulatory TIFFANIE RONQUILLO Facil ity:[facility] Start: 07-30-2022 End: 07-30-2022 Subsequent hospital visit by physician Tiffanie Ronquillo FISCAL ASSISTANT-CONCIERGE MANAGER Work Phone: [facility] [place] Comment on above: Arrived Start: 07-24-2022 ambulatory KRISTYN WALLACE DO Facility:[facility] Start: 07-24-2022 End: 07-24-[address] Ander Nicholson Work Phone: [facility] Start: 07-19-2022 Non-patient / Non-visit Dr. Bassam Nicholson Work Phone: [facility] Start: 07-18-2022 Non-patient / Non-visit Dr. Bassam Nicholson Work Phone: [facility] Start: 07-16-2022 Non-patient / Non-visit Dr. Bassam Nicholson Work Phone: [facility] Start: 07-15-2022 Non-patient / Non-visit Dr. Bassam Nicholson Work Phone: [facility] Start: 07-11-2022 Non-patient / Non-visit Dr. Bassam Nicholson Work Phone: [facility] Start: 07-10-2022 Non-patient / Non-visit Dr. Bassam Nicholson Work Phone: [facility] Start: 07-08-2022 Non-patient / Non-visit Dr. Bassam Nicholson Work Phone: [facility] Start: 07-04-2022 Non-patient / Non-visit Dr. Bassam Nicholson Work Phone: [facility] Start: 07-02-2022 Non-patient / Non-visit Dr. Bassam Nicholson Work Phone: [facility] Start: 07-01-2022 Non-patient / Non-visit Dr. Bassam Nicholson Work Phone: [facility] Start: 06-27-2022 Non-patient / Non-visit Dr. Bassam Nicholson Work Phone: [facility] Start: 06-24-2022 Non-patient / Non-visit Dr. Bassam Nicholson Work Phone: [facility] Start: 06-20-2022 Non-patient / Non-visit Dr. Bassam Nicholson Work Phone: [facility] Start: 06-19-2022 Non-patient / Non-visit Dr. Bassam Nicholson Work Phone: [facility] Start: 06-17-2022 Non-patient / Non-visit Dr. Bassam Nicholson Work Phone: [facility] Inpatient Physicians Start: 06-13-2022 Non-patient / Non-visit Dr. Bassam Nicholson Work Phone: [facility] Inpatient Physicians Start: 06-11-2022 Non-patient / Non-visit Dr. Bassam Nicholson Work Phone: [facility] Inpatient Physicians Start: 06-10-2022 Non-patient / Non-visit Dr. Bassam Nicholson Work Phone: [facility] Inpatient Physicians Start: 06-08-2022 Non-patient / Non-visit Dr. Bassam Nicholson Work Phone: [facility] Inpatient Physicians Start: 06-07-2022 End: 07-19-2022 Evaluation and management of inpatient Dr. Ander Nicholson Work Phone: [facility] Start: 05-22-2022 End: 06-07-2022 Evaluation and management of inpatient EYAD MUJICA Facility:[facility] Start: 05-22-2022 End: 05-22-2022 Emergency department patient visit [facility] Procedures Date Procedure Procedure Detail Performing Clinician Start: 10-28-[address] Ander Nicholson DO Work Phone: Start: 10-27-2024 Open reduction of fr acture of patella with internal fixation Dr. Ander Nicholson DO Work Phone: Start: 10-27-2024 Fluoroscopic guidance Landen Nicholson DO Work Phone: Start: 10-27-2024 X-ray of knee, one o r two views Dr. Ander Nicholson DO Work Phone: Start: 10-09-2024 X-ray of ankle, thre e or more views Dr. Ander Nicholson DO Work Phone: Start: 10-09-2024 Plain x-ray of hand Dr. Ander Nicholson DO Work Phone: Start: 10-09-2024 X-ray of knee, one o r two views Dr. Ander Nicholson DO Work Phone: Start: 05-07-2023 Magnetic resonance angiography of head without contrast Start: 04-08-2023 CT of head without contrast Start: 03-27-2023 Plain x-ray of wrist Start: 03-27-2023 X-ray of radius and ulna Start: 03-27-2023 Plain x-ray of humerus Start: 12-14-2022 Computed tomography of abdomen and pelvis with intravenous contrast Dr. Ander Nicholson Work Phone: Start: 08-05-2022 Ct head/brain w/o co ntrast material Aviva Aragon MD Work Phone: Start: 08-05-2022 Assay of magnesium Lynda Mujica MD, PhD Work Phone: Start: 08-05-2022 CBC AND ELECTRONIC DIFF Eyad Mujica MD, PhD Work Phone: Start: 08-05-2022 Complete blood count with white cell differential, automated Eyad Mujica MD, PhD Work Phone: Start: 08-04-2022 Assay of magnesium Lynda Mujica MD, PhD Work Phone: Start: 08-04-2022 CBC AND ELECTRONIC DIFF Eyad Mujica MD, PhD Work Phone: Start: 08-04-2022 Complete blood count with white cell differential, automated Eyad Mujica MD, PhD Work Phone: Start: 08-03-2022 Assay of magnesium Lynda Mujica MD, PhD Work Phone: Start: 08-03-2022 CBC AND ELECTRONIC DIFF Eyad Mujica MD, PhD Work Phone: Start: 08-03-2022 Complete blood count with white cell differential, automated Eyad Mujica MD, PhD Work Phone: Start: 08-02-2022 Assay of magnesium Lynda Mujica MD, PhD Work Phone: Start: 08-02-2022 CBC AND ELECTRONIC DIFF Eyad Mujica MD, PhD Work Phone: Start: 08-02-2022 Complete blood count with white cell differential, automated Eyad Mujica MD, PhD Work Phone: Start: 08-01-2022 Assay of magnesium Lynda Mujica MD, PhD Work Phone: Start: 08-01-2022 CBC AND ELECTRONIC DIFF Eyad Mujica MD, PhD Work Phone: Start: 08-01-2022 Complete blood count with white cell differential, automated Eyad Mujica MD, PhD Work Phone: Start: 08-01-2022 Ct head/brain w/o co ntrast material Eyad Mujica MD, PhD Work Phone: Start: 08-01-2022 End: 08-01-2022 Antibody screen Eyad Mujica MD, PhD Work Phone: Comment on above: Performed By: #### X M ####[facility] (DEFAULT)[address] [place] [id number] Start: 08-01-2022 End: 08-01-2022 Cranioplasty skull defect >5 cm diameter Eyad Mujica MD, PhD Work Phone: Start: 08-01-2022 Glucose measurement, blood Eyad Mujica MD, PhD Work Phone: Start: 08-01-2022 Basic metabolic pane l calcium total Pierre Cabrales MD Work Phone: Start: 08-01-2022 Blood typing serologic abo Pierre Cabrales MD Work Phone: Start: 08-01-2022 CBC AND ELECTRONIC DIFF Pierre Cabrales MD Work Phone: Start: 08-01-2022 Complete blood count with white cell differential, automated Pierre Cabrales MD Work Phone: Start: 08-01-2022 Iadna s aureus ampli fied probe tq Pierre Cabrales MD Work Phone: Start: 07-30-2022 Follow-up visit Follow-up EYAD MUJICA Start: 07-30-2022 CARDIAC RHYTHM Other Ot her Start: 06-21-[address] Ander rodriguez Work Phone: Start: 05-25-2022 Echocardiography SELF S ELF Start: 05-22-2022 Antibody screen SELF SE LF Comment on above: Performed By: #### X M ####[facility] (DEFAULT)[address] [place] [id number] Start: 05-22-2022 CT angiography of he ad and neck Start: 05-22-2022 Plain chest X-ray Start: 05-22-2022 CT of head without contrast History of operative procedure on knee Status post open reduction and internal fixation (ORIF) of fracture of right patella Dr. Ander Nicholson DO Work Phone: History of operative procedure on knee Status post open reduction and internal fixation (ORIF) of fracture of righ Dr. Adonay Alexander MD Investigation of transfusion reaction Dr. Ander Nicholson Work Phone: Microbial culture, routine D lopez Nicholson Work Phone: Viral antigen assay Viral antigen assay Dr. Ander Nicholson Work Phone: Plan of Treatment Date Care Activity Detail Author Start: 10-29-2024 Patient discharge [facility] Start: 10-27-2024 Application of intermittent pneumatic compression device [facility] Start: 10-27-2024 Referral to occupati onal therapist [facility] Start: 10-27-2024 Referral to service [facility] Start: 10-27-2024 Following clinical pathway protocol [facility] Start: 10-27-2024 Consultation [facility] Start: 10-27-2024 Elevation of affecte d extremity [facility] Start: 10-27-2024 Admission procedure [facility] Start: 10-27-2024 Verification routine [facility] Start: 10-27-2024 End: 10-27-2024 Application of ice collar, cap or bag [facility] Start: 10-27-2024 Assessment of risk o f venous thromboembolism [facility] Start: 10-27-2024 End: 10-27-2024 Catheterization of vein [facility] Start: 10-27-2024 End: 10-27-2024 Following clinical pathway protocol [facility] Start: 10-27-2024 Incentive spirometry [facility] Start: 10-27-2024 End: 10-27-2024 Introduction of urinary catheter [facility] Start: 10-27-2024 End: 10-27-2024 Provision of activity privileges [facility] Start: 10-27-2024 Vital signs measurements [facility] Start: 10-27-2024 End: 10-27-2024 [facility] Start: 10-09-2024 [facility] Start: 04-08-2023 [facility] Start: 01-17-2023 Influenza vaccination INFLUENZ A VACCINE (Season Ended) [facility] Start: 09-17-2022 End: 09-17-2022 Patient encounter procedure 09/17/2022 Office Visit Neurologic Surgery Eyad Mujica MD, PhD [address] [place] [address] [facility] Start: 08-24-2022 Patient discharge [facility] Start: 08-23-2022 US.doppler Lower extremity vein [facility] Start: 08-08-2022 Application of intermittent pneumatic compression device [facility] Start: 08-06-2022 Recommendation to continue with treatment [facility] Start: 08-05-2022 Urinary bladder training [facility] Start: 08-05-2022 Referral to service [facility] Start: 08-05-2022 Admission procedure [facility] Start: 08-05-2022 Patient referral to dietitian [facility] Start: 08-05-2022 Referral to occupati onal therapist [facility] Start: 08-05-2022 Vital signs measurements [facility] Start: 08-05-2022 End: 08-05-2022 [facility] Start: 08-05-2022 Speech therapy assessment [facility] Start: 08-01-2022 End: 08-01-2022 Cranioplasty skull defect >5 cm diameter CRANIOPLASTY FOR SKULL DEFECT Acquired skull defect 08/01/2022 8:30 AM EDT [facility] Start: 08-01-2022 End: 08-01-2022 Evaluation and management of inpatient ROSARIO Comment on above: Acquired skull defec t LEFT CRANIOPLASTY Start: 07-19-2022 Patient discharge [facility] Start: 07-15-2022 Referral to service [facility] Start: 07-09-2022 [facility] Start: 06-23-2022 Wound care [facility] Start: 06-19-2022 [facility] Start: 06-07-2022 Wound care [facility] Start: 06-07-2022 [facility] Start: 06-07-2022 [facility] Start: 06-07-2022 Following clinical pathway protocol [facility] Start: 06-07-2022 Urinary bladder training [facility] Start: 06-07-2022 Referral to service [facility] Start: 06-07-2022 Admission procedure [facility] Start: 06-07-2022 Patient referral to dietitian [facility] Start: 06-07-2022 Referral to occupati onal therapist [facility] Start: 06-07-2022 Vital signs measurements [facility] Start: 06-07-2022 [facility] Start: 06-07-2022 Recommendation to continue with treatment [facility] Start: 06-07-2022 Wound care [facility] Start: 06-07-2022 Incentive spirometry [facility] Start: 06-07-2022 Speech therapy assessment [facility] Start: 05-22-2022 Aspiration precautions [facility] Start: 05-22-2022 Oxygen therapy [facility] Start: 05-22-2022 End: 05-22-2022 [facility] Start: 01-17-2022 Influenza vaccination INFLUENZA VACC INE (#1) [facility] Start: 11-30-2002 Third diphtheria, te tanus and acellular pertussis (DTaP) vaccination TDAP (ADULT) [facility] Start: 11-30-1998 HIV screening HIV SCREENING DISCUSSION [facility] Start: 06-02-1984 COVID-19 VACCINE (#1) COVID-19 VACCI NE (#1) [facility] Start: 1985 Hepatitis C screening HEPATITI S C VIRUS SCREENING [facility] Start: 1985 Tetanus vaccination TETANUS [facility] CT Head WO contrast [facility] WITHOUT CONTRAST Imaging Routine Acquired skull defect 07/30/2022 11:07 AM EDT [facility] Patient Education [facility] Work Phone: Patient referral [facility] Work Phone: Immunizations Immunization Date Immunization Notes Care Provider Fa cility 10-09-2024 tetanus toxoid, redu nazario diphtheria toxoid, and acellular pertussis vaccine, adsorbed Dr. Ander Nicholson DO Work Phone: [facility] Payers Date Payer Category Payer Self-pay 2022 Unknown [employer] PPO POS [id number] 2022-Present [address] [place] [address] [id number] 2004 Unknown [id number] 2004 Unknown [facility] [id number] 2004 Unknown [id number] 1983 Unknown [id number] 1983 Unknown [id number] 1983 Unknown [id number] 1983 Unknown [id number] 1983 Unknown [id number] 1983 Unknown [id number] Unknown [facility] PACKAGE PLAN [id number] Unknown [id number] Unknown [id number] Unknown [id number] Unknown [id number] Unknown [id number] Unknown [id number] Unknown [id number] Unknown [id number] Social History Date Type Detail Facility Start: 05-22-2022 End: 04-08-2023 Tobacco smoking status NHIS Unknown if ever smoked [facility] Start: 1985 Sex Assigned At Male [facility] Start: 07-30-2022 End: 10-20-2024 Tobacco smoking status NHIS Never smoked tobacco [facility] Start: 07-30-2022 Tobacco use and exposure Smokeless tobacco non-user [facility] Start: 07-30-2022 End: 09-17-2022 Alcohol intake Lifetime non-drinker (finding) [facility] Start: 1985 Sex Assigned At Not on file [facility] Start: 05-25-2022 End: 06-04-2022 Exposure to SARS-CoV-2 (event) Unable to assess [facility] Start: 08-24-2022 Non-smoker [facility] Medical Equipment Procedure Code Equipment Code Equipment Original Text Equipment Identifier Dates ORIF, fracture, patella 4.0 CANNULATED SCREW FDA Start: 10-27-2024 ORIF, fracture, patella 4.0 CANNULATED SCREW FDA Start: 10-27-2024 ORIF, fracture, patella FIBER TAPE CIRCLAGE REF# [id number] FDA Start: 10-27-2024 Matrix Tissue 3x 3in Duragen Plus Dural Bovine Collagen Patch - [id number] Start: 05-22-2022 Patch Dural 7x5i n Thk3.5mm Craniomaxillofacial - [id number] Start: 05-24-2022 Plate Bone .6mm Craniomaxillofacial 2x2 Hole Low Profile - [id number] Start: 08-01-2022 Goals Date Patient Goal Desired Activity /State Functional Status Date Assessment Result Facility 10-29-2024 Functional status Bathroom Privilege [facility] Work Phone: 08-24-2022 Functional status Activity Abili ty With Assist of 1;With Assist of 2 [facility] Work Phone: 08-22-2022 Functional status Bedrest [facility] Work Phone: 07-19-2022 Functional status Activity Abili ty With Assist of 2 [facility] Work Phone: 07-18-2022 Functional status Bedrest [facility] Work Phone: Mental Status Date Assessment Result Facility 10-29-2024 Cognitive function Demonstrates ability to follow instructions/comprehend [facility] Work Phone: 10-28-2024 Cognitive function Voice/Name [facility] Work Phone: 08-24-2022 Cognitive function Voice/Name [facility] Work Phone: 07-19-2022 Cognitive function Voice/Name [facility] Work Phone: 05-22-2022 Cognitive function Voice/Name [facility] Work Phone: Clinical Notes 07-30-2022 to 10-29-2024 Note Date & Type Note Facility 10-29-2024 Discharge summary Note Date/Time October 29, 2024 9:00am [facility] Medical Records Department [address] [place] [address] Discharge Summary 10/29/24 0859 MR#: [id number] Acct: [id number] Name: ROMEO GONZALES Rep #:[id number] : 1985 38 From: Adonay Alexander MD PCP: Dr. Ander Nicholson DO Status:ADM REINA Location: [facility] WH395-0 Providers Date of Admission: 10/27/24 Primary Care Physician: Dr. Ander Nicholson DO Consultations 10/27/24 12:40 Consult: Hospitalist Routine Consulting Provider: Jerry Lujan Reason for Consult: medical management post op EMERGENT Consult: No MD Notified: Yes Date Notified: 10/27/24 Time Notified: 12:40 Method of Notification: Verbal Reason For Visit: Right patella open reduction internal fixation Diagnosis Discharge Diagnosis (1) Status post open reduction and internal fixation (ORIF) of fracture of rightpatella: Status: Acute Code(s): Z98.890 - Other specified postprocedural states; Z87.81 - Personal history of (healed) traumatic fracture Medications at Discharge Home Medications acetaminophen 500 mg tablet (Acetaminophen Pain Relief) 500 mg PO Q6H PRN fever or pain #90 tabs 07/18/22 ipratropium bromide 42 mcg (0.06 %) nasal spray 2 spray NASAL BID airway 08/05/22 cholecalciferol (vitamin D3) 125 mcg (5,000 unit) capsule 125 mcg PO QDAY 10/14/24 omega 0-dnf-rro-fish oil 60 mg-90 mg-500 mg capsule (Fish Oil) 1 cap PO QDAY 10/14/24 FOUR LIFE 2 tab PO DAILY 10/20/24 TRANSFACTOR 1 tab PO DAILY 10/20/24 multivitamin (Daily Multi-Vitamin tablet) 1 tab PO DAILY 10/20/24 Hospital Course Summary of Care Provided Minutes Spent on Discharge: 15 Hospital Course: benign Physical Exam Narrative no concerns Weight / BMI Weight Weight: 225 lb Body Mass Index (BMI) 36.3 ABG / Lab / Microbiology Data 10/28/24 05:50 10/28/24 05:50 D/C Instructions Discharge Diet: No restrictions Weight Bearing Status: Weight bearing as tolerated Keep extremity elevated above heart level: Operative Extremity Additional Activity Instructions: OK for passive ROM 0-30 week 0-2, then increase by 15 degrees a week Call your doctor if your incision/area has: Continuous Slow Oozing, Sudden Increased Bleeding, Increased Pain/ Swelling, Increased Redness, Foul Smelling Discharge and Swelling at the incision site Call your doctor if you observe: Fever of 101 or Higher, Coldness, Increased Pain and Numbness or Tingling Cleanse incision/area with: Do not get Incision Wet DC O2, CPAP, BIPAP Needs Home O2 Discharge instructions: No Please Follow Up With: Adonay Alexander MD When: 2 weeks Meaningful Use Info Meaningful Use Meaningful Use Diagnoses (Choose all that apply): None applicable Ischemic Stroke Statin Dosing Therapy Reference: STATIN DOSE THERAPY REFERENCE: * Patients > 75 years receive moderate or high dose statin therapy. * Patients 75 years or YOUNGER should receive HIGH intensity statin dose unless contraindicated. You will be required to document reason for non-treatment if statin daily dose does not meet guidelines. HIGH DOSE STATIN THERAPY DAILY Atorvastatin > than or = to 40 mg Rosuvastatin > than or = to 20 mg Amlodipine + Atorvastatin > than or = to 2.5/40 mg Ezetimibe + Simvastatin 10/80 mg Simvastatin 80mg Discharge Plan Admission Admit Date/Time: 10/27/24 12:37 Primary Reason for Your Visit: post op patella ORIF needs rehab bed Attending Provider: Adonay Alexander Primary Care Provider: Ander Nicholson Consulting Providers: Vinnie Felder; Jerry Lujan Discharge Orders/Prescriptions Prescriptions: No Action omega 4-fkn-yrq-fish oil [Fish Oil] 60-90-500 mg capsule 1 cap PO QDAY cholecalciferol (vitamin D3) 125 mcg (5,000 unit) capsule 125 mcg PO QDAY acetaminophen [Acetaminophen Pain Relief] 500 mg tablet 500 mg PO Q6H PRN (Reason: fever or pain) Qty: 90 6RF Rx Instructions: 1-2 tabs PO every 6 hours as needed for pain or fever ipratropium bromide 42 mcg (0.06 %) spray,non-aerosol 2 spray NASAL BID multivitamin [Daily Multi-Vitamin] Tablet 1 tab PO DAILY TRANSFACTOR 1 tab PO DAILY FOUR LIFE 2 tab PO DAILY Referrals / Follow Up: Ander Nicholson DO [Primary Care Provider] - Adonay Alexander MD [Med Staff - Active Staff] - Disposition Disposition (needs filled in before D/C Order can be placed): [facility] 10/29/24 0900 <Electronically signed by Adonay Alexander MD> Cosigner Signature (if applicable): CC: Dr. Ander Nicholson DO; Dr. Adonay Alexander MD~ Signed [facility] Work Phone: 1(709) 705-394806-13-2025 Discharge summary Author Adonay Alexander [facility] Note Date/Time October 29, 2024 8:59 am [facility] Medical Records Department [address] [place] [address] Instructions for Home/Discharge Instructions 10/29/24 0853 MR#: [id number] Acct: [id number] Name: ROMEO GONZALES Rep #:[id number] : 1985 38 From: Adonay Alexander MD PCP: Dr. Ander Nicholson DO Status:ADM REINA Discharge Instructions Diet Discharge Diet: No restrictions DC O2, CPAP, BIPAP needs Home O2 Discharge instructions: No Dressing / Incision Discharge Activity: Use Crutches Weight Bearing Status: Weight bearing as tolerated Lifting Restrictions: weight bearing as tolerated with knee straight (in full extension in brace) Keep extremity elevated above heart level: Operative Extremity Additional Activity Instructions:: OK for passive ROM 0-30 week 0-2, then increase by 15 degrees a week Dressing / Incision Call your doctor if your incision/area has: Continuous Slow Oozing, Sudden Increased Bleeding, Increased Pain/ Swelling, Increased Redness, Foul Smelling Discharge and Swelling at the incision site Call your doctor if you observe: Fever of 101 or Higher, Coldness, Increased Pain and Numbness or Tingling Change Dressing in: 2 days Cleanse incision/area with: Do not get Incision Wet Follow Up Care Please Follow Up With: Adonay Alexander MD When: 2 weeks Test Results: Test results from this visit will be discussed in further detail at your follow- up appointment, if applicable. Discharge Plan Admission Admit Date/Time: 10/27/24 12:37 Primary Reason for Your Visit: post op patella ORIF needs rehab bed Attending Provider: Adonay Alexander Primary Care Provider: Ander Nicholson Consulting Providers: Vinnie Felder; Jerry Lujan Discharge Orders/Prescriptions Prescriptions: No Action omega 1-yyj-fpt-fish oil [Fish Oil] 60-90-500 mg capsule 1 cap PO QDAY cholecalciferol (vitamin D3) 125 mcg (5,000 unit) capsule 125 mcg PO QDAY acetaminophen [Acetaminophen Pain Relief] 500 mg tablet 500 mg PO Q6H PRN (Reason: fever or pain) Qty: 90 6RF Rx Instructions: 1-2 tabs PO every 6 hours as needed for pain or fever ipratropium bromide 42 mcg (0.06 %) spray,non-aerosol 2 spray NASAL BID multivitamin [Daily Multi-Vitamin] Tablet 1 tab PO DAILY TRANSFACTOR 1 tab PO DAILY FOUR LIFE 2 tab PO DAILY Referrals / Follow Up: Ander Nicholson DO [Primary Care Provider] - Adonay Alexander MD [Med Staff - Active Staff] - Disposition Disposition (needs filled in before D/C Order can be placed): [facility] 10/29/24 0859<Electronically signed by Adonay Alexander MD>Adonay Alexander MD CC: Dr. Jerry Lujan DO; Dr. Vinnie Felder MD; Dr. Ander Nicholson DO ~ Signed [facility] Work Phone: 1(765) 180-415506-13-2025 Discharge summary [facility] Medical Records Department [address] [place] [address] Discharge Summary 10/29/24 0859 MR#: [id number] Acct: [id number] Name: ROMEO GONZALES Rep #:[id number] : 1985 38 From: Adonay Alexander MD PCP: Dr. Ander Nicholson DO Status:ADM REINA Location: [place] [id number] Providers Date of Admission: 10/27/24 Primary Care Physician: Dr. Ander Nicholson DO Consultations 10/27/24 12:40 Consult: Hospitalist Routine Consulting Provider: Jerry Lujan Reason for Consult: medical management post op EMERGENT Consult: No MD Notified: Yes Date Notified: 10/27/24 Time Notified: 12:40 Method of Notification: Verbal Reason For Visit: Right patella open reduction internal fixation Diagnosis Discharge Diagnosis (1) Status post open reduction and internal fixation (ORIF) of fracture of rightpatella: Status: Acute Code(s): Z98.890 - Other specified postprocedural states; Z87.81 - Personal history of (healed) traumatic fracture Medications at Discharge Home Medications acetaminophen 500 mg tablet (Acetaminophen Pain Relief) 500 mg PO Q6H PRN fever or pain #90 tabs 03/02/23 ipratropium bromide 42 mcg (0.06 %) nasal spray 2 spray NASAL BID airway 08/05/22 cholecalciferol (vitamin D3) 125 mcg (5,000 unit) capsule 125 mcg PO QDAY 10/14/24 omega 3-hlu-ivb-fish oil 60 mg-90 mg-500 mg capsule (Fish Oil) 1 cap PO QDAY 10/14/24 FOUR LIFE 2 tab PO DAILY 10/20/24 TRANSFACTOR 1 tab PO DAILY 10/20/24 multivitamin (Daily Multi-Vitamin tablet) 1 tab PO DAILY 10/20/24 Hospital Course Summary of Care Provided Minutes Spent on Discharge: 15 Hospital Course: benign Physical Exam Narrative no concerns Weight / BMI Weight Weight: 225 lb Body Mass Index (BMI) 36.3 ABG / Lab / Microbiology Data 10/28/24 05:50 10/28/24 05:50 D/C Instructions Discharge Diet: No restrictions Weight Bearing Status: Weight bearing as tolerated Keep extremity elevated above heart level: Operative Extremity Additional Activity Instructions: OK for passive ROM 0-30 week 0-2, then increase by 15 degrees a week Call your doctor if your incision/area has: Continuous Slow Oozing, Sudden Increased Bleeding, Increased Pain/ Swelling, Increased Redness, Foul Smelling Discharge and Swelling at the incision site Call your doctor if you observe: Fever of 101 or Higher, Coldness, Increased Pain and Numbness or Tingling Cleanse incision/area with: Do not get Incision Wet DC O2, CPAP, BIPAP Needs Home O2 Discharge instructions: No Please Follow Up With: Adonay Alexander MD When: 2 weeks Meaningful Use Info Meaningful Use Meaningful Use Diagnoses (Choose all that apply): None applicable Ischemic Stroke Statin Dosing Therapy Reference: STATIN DOSE THERAPY REFERENCE: * Patients > 75 years receive moderate or high dose statin therapy. * Patients 75 years or YOUNGER should receive HIGH intensity statin dose unless contraindicated. You will be required to document reason for non-treatment if statin daily dose does not meet guidelines. HIGH DOSE STATIN THERAPY DAILY Atorvastatin > than or = to 40 mg Rosuvastatin > than or = to 20 mg Amlodipine + Atorvastatin > than or = to 2.5/40 mg Ezetimibe + Simvastatin 10/80 mg Simvastatin 80mg Discharge Plan Admission Admit Date/Time: 10/27/24 12:37 Primary Reason for Your Visit: post op patella ORIF needs rehab bed Attending Provider: Adonay Alexander Primary Care Provider: Ander Nicholson Consulting Providers: Vinnie Felder; Jerry Lujan Discharge Orders/Prescriptions Prescriptions: No Action omega 0-rwc-hyx-fish oil [Fish Oil] 60-90-500 mg capsule 1 cap PO QDAY cholecalciferol (vitamin D3) 125 mcg (5,000 unit) capsule 125 mcg PO QDAY acetaminophen [Acetaminophen Pain Relief] 500 mg tablet 500 mg PO Q6H PRN (Reason: fever or pain) Qty: 90 6RF Rx Instructions: 1-2 tabs PO every 6 hours as needed for pain or fever ipratropium bromide 42 mcg (0.06 %) spray,non-aerosol 2 spray NASAL BID multivitamin [Daily Multi-Vitamin] Tablet 1 tab PO DAILY TRANSFACTOR 1 tab PO DAILY FOUR LIFE 2 tab PO DAILY Referrals / Follow Up: Ander Nicholson DO [Primary Care Provider] - Adonay Alexander MD [Med Staff - Active Staff] - Disposition Disposition (needs filled in before D/C Order can be placed): [facility] 10/29/24 0900 Cosigner Signature (if applicable): CC: Dr. Ander Nicholson DO; Dr. Adonay Alexander MD~ Signed [facility]06-13-2025 Discharge summary [facility] Medical Records Department [address] [place] [address] Instructions for Home/Discharge Instructions 10/29/24 0853 MR#: [id number] Acct: [id number] Name: ROMEO GONZALES Rep #:[id number] : 1985 38 From: Adonay Alexander MD PCP: Dr. Ander Nicholson DO Status:ADM REINA Discharge Instructions Diet Discharge Diet: No restrictions DC O2, CPAP, BIPAP needs Home O2 Discharge instructions: No Dressing / Incision Discharge Activity: Use Crutches Weight Bearing Status: Weight bearing as tolerated Lifting Restrictions: weight bearing as tolerated with knee straight (in full extension in brace) Keep extremity elevated above heart level: Operative Extremity Additional Activity Instructions:: OK for passive ROM 0-30 week 0-2, then increase by 15 degrees a week Dressing / Incision Call your doctor if your incision/area has: Continuous Slow Oozing, Sudden Increased Bleeding, Increased Pain/ Swelling, Increased Redness, Foul Smelling Discharge and Swelling at the incision site Call your doctor if you observe: Fever of 101 or Higher, Coldness, Increased Pain and Numbness or Tingling Change Dressing in: 2 days Cleanse incision/area with: Do not get Incision Wet Follow Up Care Please Follow Up With: Adonay Alexander MD When: 2 weeks Test Results: Test results from this visit will be discussed in further detail at your follow- up appointment, if applicable. Discharge Plan Admission Admit Date/Time: 10/27/24 12:37 Primary Reason for Your Visit: post op patella ORIF needs rehab bed Attending Provider: Adonay Alexander Primary Care Provider: Ander Nicholson Consulting Providers: Vinnie Felder; Jerry Lujan Discharge Orders/Prescriptions Prescriptions: No Action omega 5-vfk-evu-fish oil [Fish Oil] 60-90-500 mg capsule 1 cap PO QDAY cholecalciferol (vitamin D3) 125 mcg (5,000 unit) capsule 125 mcg PO QDAY acetaminophen [Acetaminophen Pain Relief] 500 mg tablet 500 mg PO Q6H PRN (Reason: fever or pain) Qty: 90 6RF Rx Instructions: 1-2 tabs PO every 6 hours as needed for pain or fever ipratropium bromide 42 mcg (0.06 %) spray,non-aerosol 2 spray NASAL BID multivitamin [Daily Multi-Vitamin] Tablet 1 tab PO DAILY TRANSFACTOR 1 tab PO DAILY FOUR LIFE 2 tab PO DAILY Referrals / Follow Up: Ander Nicholson DO [Primary Care Provider] - Adonay Alexander MD [Med Staff - Active Staff] - Disposition Disposition (needs filled in before D/C Order can be placed): [facility] 10/29/24 0859Adonay Alexander MD CC: Dr. Jerry Lujan DO; Dr. Vinnie Felder MD; Dr. Ander Nicholson DO ~ Signed [facility]06-12-2025 Radiology Diagnostic study note [facility] Imaging Services [address] [place], [place] [id number] Knee 1 or 2 Views MR#: [id number] Acct: [id number] Name: ROMEO GONZALES Rep #: [id number] : 1985 M 38 From: Chucky Blair MD PCP: Dr. Ander Nicholson DO Status: ADM REINA Study:Knee 1 or 2 Views Date of Exam: Exam# [id number] Ordering Dr: Adonay Alexander MD PROCEDURE: KNEE 1 OR 2 VIEWS 10/27/2024 REASON FOR EXAM: RT PATELLA ORIF TECHNIQUE: 6 fluoroscopic views. Fluoroscopy time: 70.2 seconds. Radiation: 2.18 mGy. COMPARISON: 10/09/2024. FINDINGS: Fluoroscopic images are provided. Open reduction internal fixation of patellar fracture in good alignment. Unremarkable metallic hardware. RAD/Knee 1 or 2 Views IMPRESSION: Open reduction internal fixation of patellar fracture in good alignment. Reading Location: [place] [address] CC: Dr. Ander Nicholson DO; Dr. Adonay Alexander MD ~ Instructor Military Science: Signed [facility]06-12-2025 Consult note Author Jerry [facility] Note Date/Time October 27, 2024 11:0 6pm [facility] Medical Records Department [address] [place] [address] Consultation - Hospitalist 10/27/24 1242 MR#: [id number] Acct: [id number] Name: ROMEO GONZALES Rep #:[id number] : 1985 38 From: Jerry wang DO PCP: Dr. Ander Nicholson DO Status:ADM REINA Location: [facility] JO509-0 Assessment & Plan Assessment/Plan (1) Status post open reduction and internal fixation (ORIF) of fracture of rightpatella: PLAN: Plan Patient is a 38-year-old male who presented [facility] on 10/27/2024 for planned patellar fracture repair. Medicine consulted postoperatively for medical management. 1. Right patellar fracture ? Orthopedic surgery primary. Recent mechanical fall with right patella fracture. S/p right patella ORIF with Dr. Alexander on 10/27. Tolerated procedure well, no intraoperative complications. Pain control, DVT prophylaxis and other postoperative management per orthopedics. PT/OT/case management following. 2. 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 Per history. Currently stable at baseline. Complicates hospital course, careand prognosis. 3. Class II obesity ? BMI 36. Complicates hospital course, care and prognosis. DVT prophylaxis: Defer to orthopedics Total clinical time spent by myself addressing the patient's medical issues, reviewing all the data, and collaborating with patient's care team: 35 minutes. HPI Consult Data Date of Consult: 10/27/24 HPI Narrative Reason for Consultation: Postoperative medical management HPI Narrative: ROMEO GONZALES, is a 38 M who presented to [facility] on 10/27/2024 for planned patellar fracture repair. Medicine consulted postoperatively for medical management. S/p right patella ORIF with Dr. Alexander today. Patient tolerated well, no intraoperative complications noted. Saw patient at bedside this afternoon, mother and father present. Patient was sitting up comfortably in bedside chair, conversing normally and in no acute distress. Reported very mild knee pain currently and otherwise reported generalized weakness but no other pain or discomfort. Had just eaten a good late lunch when I saw him and tolerated this without issue. No other acute concerns at this time. 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 DVT (deep venous thrombosis) Subarachnoid hemorrhage Dissection of cerebral artery Obesity (BMI 30-39.9) Arterial ischemic stroke, MCA (middle cerebral artery), left, acute Stroke/cerebrovascular accident Hypertension Home Medications ?Medication ?Instructions ?Recorded ?Last Taken ?Type acetaminophen 500 mg tablet 500 mg PO Q6H PRN fever or pain 07/18/22 10/26/24 18:00 Rx (Acetaminophen Pain Relief) #90 tabs ipratropium bromide 42 mcg (0.06 [address] 08/05/22 10/27/24 History %) nasal spray cholecalciferol (vitamin D3) 125 125 mcg PO QDAY 10/1410/26/24 History mcg (5,000 unit) capsule omega 7-zth-qzj-fish oil 60 mg-90 1 cap PO QDAY 10/26/24 History mg-500 mg capsule (Fish Oil) FOUR LIFE 2 tab PO DAILY 10/20/2410/17 History TRANSFACTOR 1 tab PO DAILY 10/20/2410/17 History multivitamin (Daily Multi-Vitamin 1 tab PO DAILY 10/2010/26/24 History tablet) Allergy/AdvReac Type Severity Reaction Status Date / Time No Known Allergies Allergy Verified 10/27/24 09:33 Surgical History History of cholecystectomy History of appendectomy Status post craniectomy Status post aneurysm repair Status post craniotomy Social History adopted: No household members: family housing: house number of children: 0 current occupational status: disabled Smoking Status: Never smoker alcohol intake: never substance use type: does not use ROS Constitutional Constitutional: Denies chills, fatigue, fever(s) or weakness Eyes Eyes: Denies change in vision Cardiovascular Cardiovascular: Denies chest pain Respiratory/Chest Respiratory/Chest: Denies shortness of breath at rest Gastrointestinal Gastrointestinal: Denies abdominal pain Musculoskeletal Musculoskeletal: Denies arthralgias or myalgias Physical Exam Const alert, oriented x3 and no apparent distress Constitutional Narrative: Pleasant middle-age male, sitting up comfortably in bedside chair, answering questions appropriately, in no acute distress. General Appearance: cooperative and comfortable HEENT normocephalic, head/scalp atraumatic, hearing grossly normal bilaterally, nasal mucous membranes and turbinates normal and moist oral mucous membranes Eyes PERRL, EOMs intact bilaterally and conjunctivae normal Neck full ROM Chest inspection of chest normal Resp normal respiratory effort, normal air movement, no use of accessory muscles and clear to auscultation bilaterally Cardio regular rate, regular rhythm, no murmurs and peripheral pulses 2+ throughout GI normal to inspection, nondistended, normoactive bowel sounds, soft to palpation,non-tender and non-distended Skin no rashes or lesions noted Neuro Neuro Narrative: Chronic right-sided hemiparesis noted. Psych mental status grossly normal Lab / Micro Data 10/26/24 09:10 10/26/24 09:10 Charges/Coding Visit Charges Inpatient E&M: 57856 Subs Hosp L2 10/27/24 2306 <Electronically signed by Jerry Lujan DO> Cosigner Signature (if applicable): CC: Dr. Ander Nicholson DO; Dr. Adonay Alexander MD~ Signed [facility] Work Phone: 1(751) 361-128706-11-2025 Consult note [facility] Medical Records Department [address] [place] [address] Consultation - Hospitalist 10/27/24 1242 MR#: [id number] Acct: [id number] Name: ROMEO GONZALES Rep #:[id number] : 1985 38 From: Jerry wang DO PCP: Dr. Ander Nicholson DO Status:ADM REINA Location: [facility] VM828-0 Assessment & Plan Assessment/Plan (1) Status post open reduction and internal fixation (ORIF) of fracture of rightpatella: PLAN: Plan Patient is a 38-year-old male who presented [facility] on 10/27/2024 for planned patellar fracture repair. Medicine consulted postoperatively for medical management. 1. Right patellar fracture ? Orthopedic surgery primary. Recent mechanical fall with right patella fracture. S/p right patellaORIF with Dr. Alexander on 10/27. Tolerated procedure well, no intraoperative complications. Pain control, DVT prophylaxis and other postoperative management per orthopedics. PT/OT/case management following. 2. 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 Per history. Currently stable at baseline. Complicates hospital course, careand prognosis. 3. Class II obesity ? BMI 36. Complicates hospital course, care and prognosis. DVT prophylaxis: Defer to orthopedics Total clinical time spent by myself addressing the patient's medical issues, reviewing all the data, and collaborating with patient's care team: 35 minutes. HPI Consult Data Date of Consult: 10/27/24 HPI Narrative Reason for Consultation: Postoperative medical management HPI Narrative: ROMEO GONZALES, is a 38 M who presented to [facility] on 10/27/2024 for planned patellar fracture repair. Medicine consulted postoperatively for medical management. S/p right patella ORIFwith Dr. Alexander today. Patient tolerated well, no intraoperative complications noted. Saw patientat bedside this afternoon, mother and father present. Patient was sitting up comfortably in bedsidechair, conversing normally and in no acute distress. Reported very mild knee pain currently and otherwise reported generalized weakness but no other pain or discomfort. Had just eaten a good late lunch when I saw him and tolerated this without issue. No other acute concerns at this time. 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 DVT (deep venous thrombosis) Subarachnoid hemorrhage Dissection of cerebral artery Obesity (BMI 30-39.9) Arterial ischemic stroke, MCA (middle cerebral artery), left, acute Stroke/cerebrovascular accident Hypertension Home Medications ?Medication ?Instructions ?Recorded ?Last Taken ?Type acetaminophen 500 mg tablet 500 mg PO Q6H PRN fever or pain 07/18/22 10/26/24 18:00 Rx (Acetaminophen Pain Relief) #90 tabs ipratropium bromide 42 mcg (0.06 [address] air way 08/05/22 10/27/24 History %) nasal spray cholecalciferol (vitamin D3) 125 125 mcg PO QDAY 10/1410/26/24 History mcg (5,000 unit) capsule omega 7-cot-rxt-fish oil 60 mg-90 1 cap PO QDAY 10/26/24 History mg-500 mg capsule (Fish Oil) FOUR LIFE 2 tab PO DAILY 10/20/2410/17 History TRANSFACTOR 1 tab PO DAILY 10/20/2410/17 History multivitamin (Daily Multi-Vitamin 1 tab PO DAILY 10/2010/26/24 History tablet) Allergy/AdvReac Type Severity Reaction Status Date / Time No Known Allergies Allergy Verified 10/27/24 09:33 Surgical History History of cholecystectomy History of appendectomy Status post craniectomy Status post aneurysm repair Status post craniotomy Social History adopted: No household members: family housing: house number of children: 0 current occupational status: disabled Smoking Status: Never smoker alcohol intake: never substance use type: does not use ROS Constitutional Constitutional: Denies chills, fatigue, fever(s) or weakness Eyes Eyes: Denies change in vision Cardiovascular Cardiovascular: Denies chest pain Respiratory/Chest Respiratory/Chest: Denies shortness of breath at rest Gastrointestinal Gastrointestinal: Denies abdominal pain Musculoskeletal Musculoskeletal: Denies arthralgias or myalgias Physical Exam Const alert, oriented x3 and no apparent distress Constitutional Narrative: Pleasant middle-age male, sitting up comfortably in bedside chair, answering questions appropriately, in no acute distress. General Appearance: cooperative and comfortable HEENT normocephalic, head/scalp atraumatic, hearing grossly normal bilaterally, nasal mucous membranes and turbinates normal and moist oral mucous membranes Eyes PERRL, EOMs intact bilaterally and conjunctivae normal Neck full ROM Chest inspection of chest normal Resp normal respiratory effort, normal air movement, no use of accessory muscles and clear to auscultation bilaterally Cardio regular rate, regular rhythm, no murmurs and peripheral pulses 2+ throughout GI normal to inspection, nondistended, normoactive bowel sounds, soft to palpation,non-tender and non-distended Skin no rashes or lesions noted Neuro Neuro Narrative: Chronic right-sided hemiparesis noted. Psych mental status grossly normal Lab / Micro Data 10/26/24 09:10 10/26/24 09:10 Charges/Coding Visit Charges Inpatient E&M: 99402 Subs Hosp L2 10/27/24 2306 Cosigner Signature (if applicable): CC: Dr. Ander Nicholson DO; Dr. Adonay Alexander MD~ Signed [facility]06-11-2025 Consult note Author Ridge pratibha [facility] Note Date/Time October 27, 2024 1:55 pm [facility] Medical Records Department [address] [place] [address] Anesthesia Postop Eval II 10/27/24 1355 MR#: [id number] Acct: [id number] Name: ROMEO GONZALES Rep #:[id number] : 1985 38 From: Ridge Kirby MD PCP: Dr. 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.TNES Spontaneous unlabored Yes 10/27/24 12:30 BEAD FORMING MACHINE OPERATOR.TNES respirations Mental status nausea No 10/27/24 12:30 BEAD FORMING MACHINE OPERATOR.TNES Vomiting No 10/27/24 12:30 BEAD FORMING MACHINE OPERATOR.TNES Anesthesia Postop Eval I: Fluid Summary Crystalloid volume administer ,100 10/27/24 12:30 BEAD FORMING MACHINE OPERATOR.TNES (ml) Colloids volume administered ( ml) Blood Product volume administered (ml) Total IV fluid infused ,100 10/27/24 12:30 BEAD FORMING MACHINE OPERATOR.TNES Anesthesia Postop Eval I: Summary Notes Anesthesia Complication No 10/27/24 12:30 BEAD FORMING 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.TNES Anesthesia Complication Comment: Post-operative progress note Anesthesia: Postop Eval II Evaluation Mental status: Awake Pain Level: 2 nausea: No Vomiting: No 10/27/24 5832 <Electronically signed by Ridge Kirby MD > Date _ Ridge Kirby MD Cosigner Signature: Date CC: ~ Signed [facility] Work Phone: 1(719) 237-203206-11-2025 Consult note Author Jason Eduardo [facility] Note Date/Time October 27, 2024 12:3 0pm [facility] Medical Records Department [address] [place] [address] Anesthesia Postop Eval I 10/27/24 1230 MR#: [id number] Acct: [id number] Name: ROMEO GONZALES Rep #:[id number] : 1985 38 From: Jason HARMON PCP: Dr. Ander Nicholson, DO Status:REG SDC Y Race: C Location: [place] [address] Anesthesia: Postop Eval I Current Vital Signs Temperature: 97.8 F Pulse Rate: 82 Blood Pressure: 129/90 Respiratory Rate: 16 Pulse Ox: 96 Assessment Airway patent: Yes Spontaneous unlabored respirations: Yes nausea: No Vomiting: No Anesthesia Complication: No Fluid Hydration Crystalloid volume administer (ml): 1,100 Total IV fluid infused: 1,100 Progress Note Anesthesia document: Postop Eval 1 completed: Yes 10/27/24 1230 <Electronically signed by Jason Eduardo CRNA> Date _ Jason Eduardo CRNA Cosigner Signature: Date CC: ~ Signed [facility] Work Phone: 1(748) 965-586706-11-2025 Consult note [facility] Medical Records Department [address] [place] [address] Anesthesia Postop Eval II 10/27/24 1355 MR#: [id number] Acct: [id number] Name: ROMEO GONZALES Rep #:[id number] : 1985 38 From: Ridge Kirby MD PCP: Dr. 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.TNES Spontaneous unlabored Yes 10/27/24 12:30 BEAD FORMING MACHINE OPERATOR.TNES respirations Mental status nausea No 10/27/24 12:30 BEAD FORMING MACHINE OPERATOR.TNES Vomiting No 10/27/24 12:30 BEAD FORMING MACHINE OPERATOR.TNES Anesthesia Postop Eval I: Fluid Summary Crystalloid volume administer 1,100 10/27/24 12:30 BEAD FORMING MACHINE OPERATOR.TNES (ml) Colloids volume administered ( ml) Blood Product volume administered (ml) Total IV fluid infused 1,100 10/27/24 12:30 BEAD FORMING MACHINE OPERATOR.TNES Anesthesia Postop Eval I: Summary Notes Anesthesia Complication No 10/27/24 12:30 BEAD FORMING MACHINE OPERATOR.TNES Anesthesia Complication Comment: Post-operative progress note Anesthesia: Postop Eval II Evaluation Mental status: Awake Pain Level: 2 nausea: No Vomiting: No 10/27/24 1355 > Date _ Ridge Kirby MD Cosigner Signature: Date CC: ~ Signed [facility]06-11-2025 Consult note [facility] Medical Records Department [address] [place] [address] Anesthesia Postop Eval I 10/27/24 1230 MR#: [id number] Acct: [id number] Name: ROMEO GONZALES Rep #:[id number] : 1985 38 From: Jason HARMON PCP: Dr. Ander Nicholson, DO Status:REG SDC Y Race: C Location: [place] [address] Anesthesia: Postop Eval I Current Vital Signs Temperature: 97.8 F Pulse Rate: 82 Blood Pressure: 129/90 Respiratory Rate: 16 Pulse Ox: 96 Assessment Airway patent: Yes Spontaneous unlabored respirations: Yes nausea: No Vomiting: No Anesthesia Complication: No Fluid Hydration Crystalloid volume administer (ml): 1,100 Total IV fluid infused: 1,100 Progress Note Anesthesia document: Postop Eval 1 completed: Yes 10/27/24 1230 BEAD FORMING MACHINE OPERATOR> Date _ Jason Eduardo CRNA Cosigner Signature: Date CC: ~ Signed [facility]06-11-2025 Procedure note [facility] Medical Records Department [address] [place] [address] Operative Report 10/27/24 1223 MR#: [id number] Acct: [id number] Name: ROMEO GONZALES Rep #:[id number] : 1985 38 From: Adonay Alexander MD PCP: Dr. Ander Nicholson, DO Status:[facility] Location: [place] [address] Problems Associated Problem List Diagnoses (1) Patella fracture: Procedures Musculoskeletal 20xxx-29xxx: Other Procedure See Report Operative Report (Standard) Operative Information Date of Procedure: 10/27/24 Pre-Operative Diagnosis: Right patella fracture Post-Operative Diagnosis: Same Surgery/Procedure Performed: Right patella open reduction internal fixation, knee arthroscopy diagnostic custodial supervisor: Yes Wire Rope Sales Representative: yajaira Tasks completed by assistant credit manager: Retracting Additional legal support assistant?: No Type of Anesthesia: Block,Regional and General RN Documented Start/Stop Times: Operation Date: 10/27/24 11:00 Case Time Into Pre-Op 10/27/24 09:32 Anesthesia Start 10/27/24 10:45 Into Room 10/27/24 10:45 Procedure Start 10/27/24 11:05 Procedure End 10/27/24 12:17 Procedure Start Time: 11:05 Procedure Stop Time: 12:17 Select all DRAINS/GRAFTS/IMPLANTS that apply: Implanted device Implanted device details: Arthrex 46mm long patella screws 4.0 mm with suture cerclage tape x 2 Estimated Blood Loss: 50 Specimen collected: No Description of surgery: Patient brought to the operating room theater. Placed supine on table. Generalanesthesia induced. 2g IV Ancef administered prior to the start of the case. Bump under the right hip. Tourniquet applied the right thigh appropriately padded. All bony prominences padded. SCD on the nonoperative leg. Lower extremity prepped and draped in the usual sterile fashion with chlorhexidine- based prep solutionallowing over 3 minutes drying time prior to draping. Preoperative timeout performed to confirm thesite patient and the surgery. Began by limiting limb inflated the tourniquet to 250 mmHg. Made a standard anterior midline incision. The dissection down through skin and subcutaneous tissue to meticulous hemostasis. Dissected down to the level of the patella fracture. Removed any interposed hematoma and fracture periosteal tissue. Thoroughly irrigated the joint. Extended the knee used 2 fracture reduction clamps with the kneein full extension. Took AP lateral and oblique x-rays to ensure appropriate reduction of the articular surface of the patella. The next passed 2 wires from the Arthrex set from inferior to superior pole co-linear through the mid aspect of the patella. Used the Arthrex Itzel scope intra- articularly did a thorough washout irrigation exam of the fracture site this appeared to have no steps or gaps. Next I overdrilled the wires and then passed 2 46 mm long 4.0 mm diameter screwsfrom inferior to superior ensure that they were not overly long and that they achieve good compression of the fracture site. Next use the Arthrex cerclage suture tape 1 through each screw with the suture stack knot at the proximal end of the quads tendon. Appropriately tensioned the sutures using the intraoperative tensioner to 2 landon lines. Final radiographs were taken AP and lateral. Fracture appropriately reduced with good hardware placement. Tourniquet let down meticulous hemostasis achieved. The retinaculum closed with2-0 Vicryl sutures as well as the split in the quadriceps tendon and the patellar tendon areas were closed. Subcutaneoustissue closed with 2-0 Vicryl suture and skin with 3-0 Monocryl. Skin cleaned with wet dry dressingfollowed application of Steri-Strips Adaptic 4 x 4 gauze ABD dressing and Jett wrap with ahinged knee brace locked in full extension. Patient woken up from the general anesthetic transferred off the operating tabletaken to postanesthetic care unit in stable condition. All sponge and measured counts were correct no complications found the patient likely to be admitted forinpatient rehabilitation due to difficulties with care in the chronic hemiplegicweakness. PLAN WBAT in full extension with brace locked. CPT 61090, 29448 Surgical Findings: As above Complications Complications: No Admit VTE Documentation VTE Present on Admission: Yes VTE Mechan Device Prophylaxis: SCD's VTE Pharm Prophylaxis ordered?: No Reason prophylaxis not ordered: Treatment Not Indicated 10/27/24 1230 Cosigner Signature (if applicable): CC: Dr. Vinnie Felder MD; Dr. Ander Nicholson, DO; Dr. Adonay Alexander MD~ Signed [facility]06-11-2025 History and physical note Author Adonay Alexander [facility] Note Date/Time October 27, 2024 10:1 9am [facility] Medical Records Department [address] [place] [address] History & Physical Exam 10/27/24 1018 MR#: [id number] Acct: [id number] Name: ROMEO GONZALES Rep #:[id number] : 1985 38 From: Adonay Alexander MD PCP: Dr. Ander Nicholson DO Status:REG [facility] [place] Location: [place] [address] HPI - General HPI Narrative ROMEO GONZALES, is a 38 M who presents for right patella open reduction internal fixation. no change to h and p. here with mom and dad. rab, post op instructionsand narcotic counselling. tends to avoid narcotics. getting SW involved they want to do inpatient rehab / PT since very familiar with them. pending full postop plan regarding coming into hospital. right knee marked. ok to proceed. MR#: [id number] Acct: [id number] Name: ROMEO GONZALES Rep #: [id number] : 1985 Provider: Dr. Adonay Alexander MD Age/Sex: 38/M Location: [facility] [place] Status: Signed Intake Vital Signs 10/10/2515:13 Height 5 ft 6 in BP 138/104 H Respiration 15 Pulse 89 Temp 97.5 F L Temp Source Temporal Pulse Oximetry (%) 96 Intake Visit Reasons: RIGHT KNEE Chief Complaint: Right Knee ER Follow-Up Is patient in pain?: Yes Pain scale (1-10): 6 Allergies No Known Allergies Allergy (Verified 10/14/24 13:33) Medications ?Medication ?Instructions ?Recorded ?Confirmed ?Type acetaminophen 500 mg tablet 500 mg PO Q6H PRN fever or pain 07/18/22 10/14/24 Rx (Acetaminophen Pain Relief) #90 tabs ipratropium bromide 42 mcg (0.06 2 spray NASAL BID airway 08/05/22 History %) nasal spray cholecalciferol (vitamin D3) 125 125 mcg PO QDAY 10/14/24 10/14/24 Histor y mcg (5,000 unit) capsule multivitamin combination no.56 tab PO DAILY 10/14/24 10/14/24 History omega 3-vpm-ulp-fish oil 60 mg-90 1 cap PO QDAY 10/14/24 10/14/24 History mg-500 mg capsule (Fish Oil) PFSH Medical History Patella fracture Aphasia as late effect of stroke Hemiparesis affecting right side as late effect of cerebrovascular accident Generalized weakness Hyperlipidemia Ischemic cerebrovascular accident (CVA) Fecal incontinence Urinary incontinence Debility Current use of retirement anticoagulation DVT (deep venous thrombosis) Subarachnoid hemorrhage Dissection of cerebral artery Obesity (BMI 30-39.9) Arterial ischemic stroke, MCA (middle cerebral artery), left, acute Stroke/cerebrovascular accident Hypertension Surgical History History of cholecystectomy History of appendectomy Status post craniectomy Status post aneurysm repair Status post craniotomy Social History adopted: No household members: family housing: house number of children: 0 current occupational status: disabled Smoking Status: Never smoker alcohol intake: never substance use type: does not use HPI RIGHT KNEE Details: This documentation accurately reflects the service provided and the decisions made by me, Dr. Adonay Alexander MD 10/14/24 0900. Part of today?s visit was documented by [ ], acting as scribe. ROMEO GONAZLES is a 38 year old M here today for right patella fracture. Patient fell. He has right-sided weakness. He normally walks with a cane here with hisdad who is his power of claims attorney. He normally uses a ankle brace. Patient continues to have the ankle pain as well as signficant knee pain. per ED 38-year-old male with history of cerebral aneurysm status post rupture with secondary stroke with right sided deficits presenting from home after what sounds like mechanical fall. Patient was doing his daily exercises of walking up and down the driveway. Family found him kneeling on the driveway trying to get up. It seems like he slipped and fell. Patient does not remember exactly why he fell but states he just fell really fast. He denies hitting his head. He did not scratch his glasses or break them. He initially was complaining mostly of pain in his right ankle but since then hehas had pain in his right knee as well. Addition he has some pain to his right hand and abrasion/milder pain to his left knee. Supplemental Info [facility] Imaging Services [address] [place] [address] Knee 1 or 2 Views MR#: [id number] Acct: [id number] Name: ROMEO GONZALES Rep #: [id number] : 1985 M 38 From: Sarika Boucher MD PCP: Dr. Ander Nicholson DO Status: REG ER Study: Knee 1 or 2 Views Date of Exam: 10/09/24 Exam# [id number] Ordering Dr: Fadia Warren DO PROCEDURE: KNEE 1 OR 2 VIEWS 10/09/2024 REASON FOR EXAM: INJURY/PAIN TECHNIQUE: 2 view(s) of the right knee COMPARISON: None. FINDINGS: Bones: Acute horizontal fracture of the patella with mild distraction of the fracture fragments. No suspicious osseous lesion. Joints: Normal alignment. Mild degenerative changes. Effusion: Moderate joint effusion. Soft tissues: Mild soft tissue swelling. RAD/Knee 1 or 2 Views IMPRESSION: Acute horizontal fracture of the patella. Moderate joint effusion. Reading Location: [facility] I independently reviewed the imaging. Concur with radiologist report. Coding Level of Care Code Off vis,new,level 4 Diagnoses Closed fracture of right patella S82.001A Assessment and Plan Assessment and Plan (1) Closed fracture of right patella: Status: Acute Plan: 38-year-old man with a R knee transverse displaced right patella fracture. Given the disruption of the extensor mechanism this is recommended for surgical fixation. Conservative management nonoperative treatment not typically recommended this would be in the form of a extension brace or long-leg cast. Typically without surgery result in delayed or nonunion or weakness of the extensor mechanism. Higher chance of osteoarthritis that being said surgery hasits own set of risks as well. There would be a higher chance of complications as this patient has chronic weakness on the right side from a hemorrhagic stroke. Not on any blood thinners. The his dad does want to go ahead with and signed the consent form for right patella open reduction internal fixation. Remain in the knee immobilizer until then he can be weightbearing as tolerated he can remove the knee immobilizer at rest and will get a preoperative clearanceto go ahead with the surgery. Pros and cons risks and benefits were discussed with the patient including but not limited to infection, pain, stiffness, bleeding, damage to surrounding structures, neurovascular injury, recurrence or retear, failure or wear of hardware or fixation, instability, fracture, deep vein thrombosis and pulmonary embolism, anesthetic risks, , patient dissatisfaction, need for further surgery and other risks. Patient understood and wished to proceed with surgery,and signed the informed consent documentation. Ortho Exam General General: Yes no acute distress Neurologic: Yes alert and Yes oriented x3 Psychologic: Yes reasonable and appropriate Right Knee Skin/Wound: Yes CDI, No erythema, No ecchymosis and Yes swelling Examination: Yes Med jt line tenderness, Yes Lat jt line tenderness, Yes TTP inf pole patella and Yes TTP Patellar tendon Quad Atrophy: No Stability: NML: Anterior Drawer, NML: Valgus 0, NML: Valgus 30, NML: Varus 0 and NML: Varus 30 Patellar Tilt Normal: Yes KNEE: NVI, using a knee immobilizer wears an ankle brace. He is able to just have a flicker of motion at the ankle. 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 DVT (deep venous thrombosis) Subarachnoid hemorrhage Dissection of cerebral artery Obesity (BMI 30-39.9) Arterial ischemic stroke, MCA (middle cerebral artery), left, acute Stroke/cerebrovascular accident Hypertension Home Medications ?Medication ?Instructions ?Recorded ?Last Taken ?Type acetaminophen 500 mg tablet 500 mg PO Q6H PRN fever or pain 07/18/22 10/26/24 18:00 Rx (Acetaminophen Pain Relief) #90 tabs ipratropium bromide 42 mcg (0.06 [address] 08/05/22 10/27/24 History %) nasal spray cholecalciferol (vitamin D3) 125 125 mcg PO QDAY 10/1410/26/24 History mcg (5,000 unit) capsule omega 9-luw-cwy-fish oil 60 mg-90 1 cap PO QDAY 10/26/24 History mg-500 mg capsule (Fish Oil) FOUR LIFE 2 tab PO DAILY 10/20/2410/17 History TRANSFACTOR 1 tab PO DAILY 10/20/2410/17 History multivitamin (Daily Multi-Vitamin 1 tab PO DAILY 10/2010/26/24 History tablet) Allergy/AdvReac Type Severity Reaction Status Date / Time No Known Allergies Allergy Verified 10/27/24 09:33 Surgical History History of cholecystectomy History of appendectomy Status post craniectomy Status post aneurysm repair Status post craniotomy Social History adopted: No household members: family housing: house number of children: 0 current occupational status: disabled Smoking Status: Never smoker alcohol intake: never substance use type: does not use Vital Signs Vital Signs Vital Signs: 10/27/24 09:35 10/27/24 09:42 10/27/24 09:52 Temperature 98.8 F 98.8 F Temperature Source Temporal Pulse Rate 77 77 Respiratory Rate 18 18 Respiratory Pattern Normal Blood Pressure 126/85 H 126/85 H Blood Pressure Mean 98 Blood Pressure Source Monitor Blood Pressure Position Semi-Fowlers Blood Pressure Location Left Arm Pulse Ox 98 98 Oxygen Delivery Method Room Air Weight Weight: 225 lb Body Mass Index (BMI) 36.3 Results Lab / Micro Data 10/26/24 09:10 10/26/24 09:10 10/27/24 1019 <Electronically signed by Adonay Alexander MD> Cosigner Signature (if applicable): CC: Dr. Ander Nicholson DO; Dr. Adonay Alexander MD~ Signed [facility] Work Phone: 1(326) 207-654806-11-2025 Consult note Author Ridge Kirby [facility] Note Date/Time October 27, 2024 9:52 am [facility] Medical Records Department [address] [place] [address] Pre-Anesthesia Evaluation 10/27/24 0951 MR#: [id number] Acct: [id number] Name: ROMEO GONZALES Rep #:[id number] : 1985 38 From: Ridge Kirby MD PCP: Dr. Ander Nicholson, DO Status:REG [facility] Y Race: C Location: [place] [address] ASA Classification* ASA Classification ASA Classification: 3 Assessment & Plan Anesthesia* Anesthesia Assessment Anesthesia Assessment: Discussed sedation and/or anesthesia options, risks, benefits, and alternatives with patient/parents/legal guardian/POA. Questions invited. The patient/parents/legal guardian/POA seems to understand and agrees to proceedwith anesthesia plan. Reviewed the physical assessment, medical history, allergy history and patient home medications list prior to surgery/procedure/anesthetic and documented any changes. Performed airway and anesthesia risk assessments. Anesthesia Type Anesthesia Type: General (Block if requested by surgeon) Anesthesia Focused Assessment* Temperature: 98.8 F Pulse Rate: 77 Blood Pressure: 126/85 Respiratory Rate: 18 Pulse Ox: 98 Airway Assessment Mouth opens: >3 cm Mallampati Score: II Labs Anesthesia Preop lab: CBC WBC 8.6 K/mm3 (4.4-11.0) 10/26/24 09:10 10/26/24 RBC 5.53 M/mm3 (4.6-6.2) 10/26/24 09:10 10/26/24 Hgb 16.2 g/dL (13.0-16.5) 10/26/24 09:10 10/26/24 Hct 47.6 % (40-54) 10/26/24 09:10 10/26/24 Plt Count 271 K/mm3 (150-450) 10/26/24 09:10 10/26/24 CHEMISTRY Potassium 4.0 mmol/L (3.3-5.1) 10/26/24 09:10 10/26/24 Sodium 141 mmol/L (133-145) 10/26/24 09:10 10/26/24 Magnesium 2.2 mg/dL (1.6-2.6) 08/06/22 05:43 08/06/22 Phosphorus 4.8 mg/dL (2.5-4.9) 08/06/22 05:43 08/06/22 BUN 16 mg/dL (4-19) 10/26/24 09:10 10/26/24 Creatinine 0.93 mg/dL (0.70-1.20) 10/26/24 09:10 10/26/24 Glucose 82 mg/dL (70-99) 10/26/24 09:10 10/26/24 POC Glucose 117 mg/dL (74-106) H 05/22/22 08:42 05/22/22 COAG PT 13.5 SECONDS (11.7-14.9) 05/22/22 08:42 Pre-Assessment Diagnosis/Proposed Procedure Planned Operative Procedure(s): RIGHT PATELLA ORIF Anesthesia History Anesthesia History - residential mortgage manager: Anesthesia History - residential mortgage manager Hx Hospitalization No 10/20/24 10:55 Any Problems With Anesthesia No 10/20/24 10:55 Cholinesterase deficiency No 10/20/24 10:55 You/Your Family Experience No 10/20/24 10:55 fever (hyperthermia) with Relationship Recent Exposure to Contagious No 10/27/24 09:35 Disease Does patient have nerve No 10/20/24 10:55 stimulator Patient instructed to have device shut off --Does patient have Pacemaker or ICD? When Was Last Pacemaker Check QUESTION #4 FULL TEXT: You/Your Family Experience fever (hyperthermia) with Anesthesia Last Oral Intake Last Oral intake: Last Oral Intake NPO since Meds taken in AM with sips of water? Meds patient instructed to take am of surgery PONV PONV - residential mortgage manager: PONV - residential mortgage manager Female No 10/20/24 10:55 HX of Motion Sickness No 10/20/24 10:55 HX of N/V After Surgery No 10/20/24 10:55 Non-Smoker Yes 10/20/24 10:55 Duration of Surgery greater Yes 10/20/24 10:55 than 60 minutes Number of Risk Factors 2 10/20/24 10:55 PONV Score Moderate Risk 10/20/24 10:55 Height & Weight Height & Weight: Anesthesia: Height & Weight Height 5 ft 6 in 10/27/24 09:42 Weight: 102.058 kg 10/27/24 09:42 Body Mass Index (BMI) 36.3 10/27/24 09:42 Respiratory Assessment Respiratory Assessment - residential mortgage manager: Respiratory Tract Infection Hx - residential mortgage manager Hx Respiratory Tract Infection No 10/20/24 10:55 STOP Sleep Apnea STOP Sleep Apnea - residential mortgage manager: STOP Sleep Apnea - residential mortgage manager Hx Hypertension Yes: NO MEDS FOR 1 YR 10/20/24 10:55 Hx Sleep Apnea No 10/20/24 10:55 CPAP BIPAP Do you snore loudly (louder No 10/20/24 10:55 than talking or can be heard Do you often feel tired/ Yes 10/20/24 10:55 fatigued/ sleepy during daytime? Has anyone observed you stop No 10/20/24 10:55 breathing during sleep? STOP Results Positive 10/20/24 10:55 QUESTION #5 FULL TEXT : Do you snore loudly (louder than talking or can be heard through closed doors)? Tobacco Use History Tobacco Use History - residential mortgage manager: Tobacco Use History - residential mortgage manager Tobacco Use Non-smoker 08/24/22 08:40 Smoking Status Never smoker 10/20/24 10:55 Hx Tobacco Use No 10/20/24 10:55 Years Smoking Packs Smoked per Day Smoking Cessation Date was within the last 15 years Hx Smoking Cessation Date Hx Smoking Cessation Counseling Hematologic Medial History Hematologic Hx - residential mortgage manager: Hematologic Medical Hx - accident examiner Hx of Blood Transfusion No 10/20/24 10:55 Hx of Transfusion in last 3 No 10/20/24 10:55 Months Date of Last Transfusion (if within last 3 months) Ever experience any problems No 10/20/24 10:55 with transfusion(s)? Specify any problems Hx of Preganancy in last 3 N/A 10/20/24 10:55 Months Nurse Filling Out Transfusion DSCHRIBER 10/20/24 10:55 & Questions: Date: 10/20/24 10/20/24 10:55 Time: 10:58 10/20/24 10:55 Patient unable to answer at this time (ie. confused, unrespo /Reproduction History /Reproductive History - residential mortgage manager: /Reproductive Hx- residential mortgage manager Hx Now No 10/20/24 10:55 Gestational Age (in weeks): EDC: Hx Hx Para Hx Section SAB No 10/20/24 10:55 Active Medications Active Medications: Current Medications Generic Name Dose Route Start Last Admin Trade Name Freq PRN Reason Stop Dose Admin Cefazolin Sodium 2 gm/ Sodium 110 mls @ 150 mls/hr 10/27/24 11:00 Chloride IV 10/27/24 11:43 INTRAOP ONE Lactated Ringer's 1,000 mls @ 15 mls/hr 10/27/24 09:45 IV .Q48H [facility] PFSH Medical History Wears glasses Anxiety Abrasion High cholesterol Pulmonary embolism Migraine headache Non-smoker History of pain when walking History of edema Ambulates with cane Patella fracture Aphasia as late effect of stroke Hemiparesis affecting right side as late effect of cerebrovascular accident Generalized weakness Hyperlipidemia Ischemic cerebrovascular accident (CVA) Fecal incontinence Urinary incontinence Debility 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 DVT (deep venous thrombosis) Subarachnoid hemorrhage Dissection of cerebral artery Obesity (BMI 30-39.9) Arterial ischemic stroke, MCA (middle cerebral artery), left, acute Stroke/cerebrovascular accident Hypertension Home Medications ?Medication ?Instructions ?Recorded ?Last Taken ?Type acetaminophen 500 mg tablet 500 mg PO Q6H PRN fever or pain 07/18/22 10/26/24 18:00 Rx (Acetaminophen Pain Relief) #90 tabs ipratropium bromide 42 mcg (0.06 [address] 08/05/22 10/27/24 History %) nasal spray cholecalciferol (vitamin D3) 125 125 mcg PO QDAY 10/1410/26/24 History mcg (5,000 unit) capsule omega 4-snu-imp-fish oil 60 mg-90 1 cap PO QDAY 10/26/24 History mg-500 mg capsule (Fish Oil) FOUR LIFE 2 tab PO DAILY 10/20/2410/17 History TRANSFACTOR 1 tab PO DAILY 10/20/2410/17 History multivitamin (Daily Multi-Vitamin 1 tab PO DAILY 10/2010/26/24 History tablet) Allergy/AdvReac Type Severity Reaction Status Date / Time No Known Allergies Allergy Verified 10/27/24 09:33 Surgical History History of cholecystectomy History of appendectomy Status post craniectomy Status post aneurysm repair Status post craniotomy Social History adopted: No household members: family housing: house number of children: 0 current occupational status: disabled Smoking Status: Never smoker alcohol intake: never substance use type: does not use Review of Systems (Anesthesia) ROS Narrative System reviewed and no additional complaints, except as documented. 10/27/24 0952 <Electronically signed by Ridge Kirby MD > Date _ Ridge Kirby MD Cosigner Signature: Date CC: ~ Signed [facility] Work Phone: 1(269) 726-469206-11-2025 History and physical note [facility] Medical Records Department [address] [place] [address] History & Physical Exam 10/27/24 1018 MR#: [id number] Acct: [id number] Name: ROMEO GONZALES Rep #:[id number] : 1985 38 From: Adonay Alexander MD PCP: Dr. Ander Nicholson, Status:[facility] Location: [place] [address] HPI - General HPI Narrative ROMEO GONZALES, is a 38 M who presents for right patella open reduction internal fixation. no change to h and p. here with mom and dad. rab, post op instructionsand narcotic counselling. tends to avoid narcotics. getting SW involved they want to do inpatient rehab / PT since very familiar with them. pe nding full postop plan regarding coming into hospital. right knee marked. ok to proceed. MR#: [id number] Acct: [id number] Name: ROMEO GONZALES Rep #: [id number] : 1985 Provider: Dr. Adonay Alexander MD Age/Sex: 38/M Location: [facility] Status: Signed Intake Vital Signs 10/10/2515:13 Height 5 ft 6 in BP 138/104 H Respiration 15 Pulse 89 Temp 97.5 F L Temp Source Temporal Pulse Oximetry (%) 96 Intake Visit Reasons: RIGHT KNEE Chief Complaint: Right Knee ER Follow-Up Is patient in pain?: Yes Pain scale (1-10): 6 Allergies No Known Allergies Allergy (Verified 10/14/24 13:33) Medications ?Medication ?Instructions ?Recorded ?Confirmed ?Type acetaminophen 500 mg tablet 500 mg PO Q6H PRN fever or pain 07/18/22 10/14/24 Rx (Acetaminophen Pain Relief) #90 tabs ipratropium bromide 42 mcg (0.06 2 spray NASAL BID airway 08/05/22 History %) nasal spray cholecalciferol (vitamin D3) 125 125 mcg PO QDAY 10/14/24 10/14/24 Histor y mcg (5,000 unit) capsule multivitamin combination no.56 tab PO DAILY 10/14/24 10/14/24 History omega 4-aze-ung-fish oil 60 mg-90 1 cap PO QDAY 10/14/24 10/14/24 History mg-500 mg capsule (Fish Oil) PFSH Medical History Patella fracture Aphasia as late effect of stroke Hemiparesis affecting right side as late effect of cerebrovascular accident Generalized weakness Hyperlipidemia Ischemic cerebrovascular accident (CVA) Fecal incontinence Urinary incontinence Debility Current use of retirement anticoagulation DVT (deep venous thrombosis) Subarachnoid hemorrhage Dissection of cerebral artery Obesity (BMI 30-39.9) Arterial ischemic stroke, MCA (middle cerebral artery), left, acute Stroke/cerebrovascular accident Hypertension Surgical History History of cholecystectomy History of appendectomy Status post craniectomy Status post aneurysm repair Status post craniotomy Social History adopted: No household members: family housing: house number of children: 0 current occupational status: disabled Smoking Status: Never smoker alcohol intake: never substance use type: does not use HPI RIGHT KNEE Details: This documentation accurately reflects the service provided and the decisions made by me, Dr. Cal MD 10/14/24 9278. Part of today?s visit was documented by [ ], acting as scribe. ROMEO GONZALES is a 38 year old M here today for right patella fracture. Patient fell. He has right-sided weakness. He normally walks with a cane here with hisdad who is his power of claims attorney. He normally uses a ankle brace. Patient continues to have the ankle pain as well as signficant knee pain. per ED 38-year-old male with history of cerebral aneurysm status post rupture with secondary stroke with right sided deficits presenting from home after what sounds like mechanical fall. Patient wasdoing his daily exercises of walking up and down the driveway. Family found him kneeling on the driveway trying to get up. It seems like he slipped and fell. Patient does not remember exactly why he fell but states he just fell really fast. He denies hitting his head. He did not scratch his glassesor break them. He initially was complaining mostly of pain in his right ankle but since then hehas had pain in hisright knee as well. Addition he has some pain to his right hand and abrasion/milder pain to his left knee. Supplemental Info [facility] Imaging Services [address] [place] [address] Knee 1 or 2 Views MR#: [id number] Acct: [id number] Name: RMOEO GONZALES Rep #: [id number] : 1985 M 38 From: Sarika Boucher MD PCP: Dr. Ander Nicholson, Status: REG ER Study: Knee 1 or 2 Views Date of Exam: 10/09/24 Exam# [id number] Ordering Dr: Fadia Warren DO PROCEDURE: KNEE 1 OR 2 VIEWS 10/09/2024 REASON FOR EXAM: INJURY/PAIN TECHNIQUE: 2 view(s) of the right knee COMPARISON: None. FINDINGS: Bones: Acute horizontal fracture of the patella with mild distraction of the fracture fragments. No suspicious osseous lesion. Joints: Normal alignment. Mild degenerative changes. Effusion: Moderate joint effusion. Soft tissues: Mild soft tissue swelling. RAD/Knee 1 or 2 Views IMPRESSION: Acute horizontal fracture of the patella. Moderate joint effusion. Reading Location: [facility] I independently reviewed the imaging. Concur with radiologist report. Coding Level of Care Code Off vis,new,level 4 Diagnoses Closed fracture of right patella S82.001A Assessment and Plan Assessment and Plan (1) Closed fracture of right patella: Status: Acute Plan: 38-year-old man with a R knee transverse displaced right patella fracture. Given the disruption of the extensor mechanism this is recommended for surgical fixation. Conservative management nonoperative treatment not typically recommended this would be in the form of a extension brace or long-leg cast. Typically without surgery result in delayed or nonunion or weakness of the extensor mechanism. Higher chance of osteoarthritis that being said surgery hasits own set of risks as well. There would be a higher chance of complications as this patient has chronic weakness onthe right side from a hemorrhagic stroke. Not on any blood thinners. The his dad does want to go ahead with and signed the consent form for right patella open reduction internal fixation. Remain in the knee immobilizer until then he can be weightbearing as tolerated he can remove the knee immobilizer at rest and will get a preoperative clearanceto go ahead with the surgery. Pros and cons risks and benefits were discussed with the patient including but not limited to infection, pain, stiffness, bleeding, damage to surrounding structures, neurovascular injury, recurrence or retear, failure or wear of hardware or fixation, instability, fracture, deepvein thrombosis and pulmonary embolism, anesthetic risks, , patient dissatisfaction, need for further surgery and other risks. Patient understood and wished to proceed with surgery,and signed the informed consent documentation. Ortho Exam General General: Yes no acute distress Neurologic: Yes alert and Yes oriented x3 Psychologic: Yes reasonable and appropriate Right Knee Skin/Wound: Yes CDI, No erythema, No ecchymosis and Yes swelling Examination: Yes Med jt line tenderness, Yes Lat jt line tenderness, Yes TTP inf pole patella and Yes TTP Patellar tendon Quad Atrophy: No Stability: NML: Anterior Drawer, NML: Valgus 0, NML: Valgus 30, NML: Varus 0 and NML: Varus 30 Patellar Tilt Normal: Yes KNEE: NVI, using a knee immobilizer wears an ankle brace. He is able to just have a flicker of motion at the ankle. [facility] Medical History Wears glasses Anxiety Abrasion High cholesterol Pulmonary embolism Migraine headache Non-smoker History of pain when walking History of edema Ambulates with cane Patella fracture Aphasia as late effect of stroke Hemiparesis affecting right side as late effect of cerebrovascular accident Generalized weakness Hyperlipidemia Ischemic cerebrovascular accident (CVA) Fecal incontinence Urinary incontinence Debility Current use of retirement anticoagulation DVT (deep venous thrombosis) Subarachnoid hemorrhage Dissection of cerebral artery Obesity (BMI 30-39.9) Arterial ischemic stroke, MCA (middle cerebral artery), left, acute Stroke/cerebrovascular accident Hypertension Home Medications ?Medication ?Instructions ?Recorded ?Last Taken ?Type acetaminophen 500 mg tablet 500 mg PO Q6H PRN fever or pain 07/18/22 10/26/24 18:00 Rx (Acetaminophen Pain Relief) #90 tabs ipratropium bromide 42 mcg (0.06 [address] air [address] 08/05/22 10/27/24 History %) nasal spray cholecalciferol (vitamin D3) 125 125 mcg PO QDAY 10/1410/26/24 History mcg (5,000 unit) capsule omega 0-rpi-rso-fish oil 60 mg-90 1 cap PO QDAY 10/26/24 History mg-500 mg capsule (Fish Oil) FOUR LIFE 2 tab PO DAILY 10/20/2410/17 History TRANSFACTOR 1 tab PO DAILY 10/20/2410/17 History multivitamin (Daily Multi-Vitamin 1 tab PO DAILY 10/2010/26/24 History tablet) Allergy/AdvReac Type Severity Reaction Status Date / Time No Known Allergies Allergy Verified 10/27/24 09:33 Surgical History History of cholecystectomy History of appendectomy Status post craniectomy Status post aneurysm repair Status post craniotomy Social History adopted: No household members: family housing: house number of children: 0 current occupational status: disabled Smoking Status: Never smoker alcohol intake: never substance use type: does not use Vital Signs Vital Signs Vital Signs: 10/27/24 09:35 10/27/24 09:42 10/27/24 09:52 Temperature 98.8 F 98.8 F Temperature Source Temporal Pulse Rate 77 77 Respiratory Rate 18 18 Respiratory Pattern Normal Blood Pressure 126/85 H 126/85 H Blood Pressure Mean 98 Blood Pressure Source Monitor Blood Pressure Position Semi-Fowlers Blood Pressure Location Left Arm Pulse Ox 98 98 Oxygen Delivery Method Room Air Weight Weight: 225 lb Body Mass Index (BMI) 36.3 Results Lab / Micro Data 10/26/24 09:10 10/26/24 09:10 10/27/24 1019 Cosigner Signature (if applicable): CC: Dr. Ander Nicholson, DO; Dr. Adonay Alexander MD~ Signed [facility]06-11-2025 [facility] Medical Records Department [address] [place] [address] History Physical Exam 10/27/24 1018 MR#: [id number] Acct: [id number] Name: ROMEO GONZALES Rep #: [id number] : 1985 38 From: Adonay Alexander MD PCP: Dr. Ander Nicholson DO Status:[facility] Location: [place] [address] HPI - General HPI Narrative ROMEO GONZALES, is a 38 M who presents for right patella open reduction internal fixation. no change to h and p. here with mom and dad. rab, post op instructions and narcotic counselling. tends to avoid narcotics. getting SW involved they want to do inpatient rehab / PT since very familiar with them. pending full post op plan regarding coming into hospital. right knee marked. ok to proceed. MR#: [id number] Acct: [id number] Name: ROMEO GONZALES Rep #: [id number] : 1985 Provider: Dr. Adonay Alexander MD Age/Sex: 38/M Location: [facility] [place] Status: Signed Intake Vital Signs 10/10/2515:13 Height 5 ft 6 in BP 138/104 H Respiration 15 Pulse 89 Temp 97.5 F L Temp Source Temporal Pulse Oximetry (%) 96 Intake Visit Reasons: RIGHT KNEE Chief Complaint: Right Knee ER Follow-Up Is patient in pain?: Yes Pain scale (1-10): 6 Allergies No Known Allergies Allergy (Verified 10/14/24 13:33) Medications ???Medication ???Instructions ???Recorded ???Confirmed ???Type acetaminophen 500 mg tablet 500 mg PO Q6H PRN fever or pain 07/18/22 10/14/24 Rx (Acetaminophen Pain Relief) #90 tabs ipratropium bromide 42 mcg (0.06 2 spray NASAL BID airway 08/05/22 10/14/24 History %) nasal spray cholecalciferol (vitamin D3) 125 125 mcg PO QDAY 10/14/24 10/14/24 History mcg (5,000 unit) capsule multivitamin combination no.56 tab PO DAILY 10/14/24 10/14/24 History omega 8-zdi-eoi-fish oil 60 mg-90 1 cap PO QDAY 10/14/24 10/14/24 History mg-500 mg capsule (Fish Oil) PFSH Medical History Patella fracture Aphasia as late effect of stroke Hemiparesis affecting right side as late effect of cerebrovascular accident Generalized weakness Hyperlipidemia Ischemic cerebrovascular accident (CVA) Fecal incontinence Urinary incontinence Debility 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 DVT (deep venous thrombosis) Subarachnoid hemorrhage Dissection of cerebral artery Obesity (BMI 30-39.9) Arterial ischemic stroke, MCA (middle cerebral artery), left, acute Stroke/cerebrovascular accident Hypertension Surgical History History of cholecystectomy History of appendectomy Status post craniectomy Status post aneurysm repair Status post craniotomy Social History adopted: No household members: family housing: house number of children: 0 current occupational status: disabled Smoking Status: Never smoker alcohol intake: never substance use type: does not use HPI RIGHT KNEE Details: This documentation accurately reflects the service provided and the decisions made by me, Dr. Adonay Alexander MD 10/14/24 0945. Part of today???s visit was documented by [ ], acting as scribe. ROMEO GONZALES is a 38 year old M here today for right patella fracture. Patient fell. He has right- sided weakness. He normally walks with a cane here with his dad who is his power of claims attorney. He normally uses a ankle brace. Patient continues to have the ankle pain as well as signficant knee pain. per ED 38-year-old male with history of cerebral aneurysm status post rupture with secondary stroke with right sided deficits presenting from home after what sounds like mechanical fall. Patient was doing his daily exercises of walking up and down the driveway. Family found him kneeling on the driveway trying to get up. It seems like he slipped and fell. Patient does not remember exactly why he fell but states he just fell really fast. He denies hitting his head. He did not scratch his glasses or break them. He initially was complaining mostly of pain in his right ankle but since then he has had pain in his right knee as well. Addition he has some pain to his right hand and abrasion/milder pain to his left knee. Supplemental Info [facility] Imaging Services [address] [place] [address] Knee 1 or 2 Views MR#: [id number] Acct: [id number] Name: ROMEO GONZALES Rep #: [id number] : 1985 M 38 From: Sarika Boucher MD PCP: Dr. Ander Nicholson, DO Status: REG ER Study: Knee 1 or 2 Views Date of Ex (more content not included)...[facility]06-11-2025 Consult note [facility] Medical Records Department [address] [place] [address] Pre-Anesthesia Evaluation 10/27/24 0951 MR#: [id number] Acct: [id number] Name: ROMEO GONZALES Rep #:[id number] : 1985 38 From: Ridge Kirby MD PCP: Dr. Ander Nicholson, DO Status:REG [facility] [place] [place] Y Race: C Location: [place] [address] ASA Classification* ASA Classification ASA Classification: 3 Assessment & Plan Anesthesia* Anesthesia Assessment Anesthesia Assessment: Discussed sedation and/or anesthesia options, risks, benefits, and alternatives with patient/parents/legal guardian/POA. Questions invited. The patient/parents/legal guardian/POA seems to understand and agrees to proceedwith anesthesia plan. Reviewed the physical assessment, medical history, allergy history and patient home medications list prior to surgery/procedure/anesthetic and documented any changes. Performed airway and anesthesia risk assessments. Anesthesia Type Anesthesia Type: General (Block if requested by surgeon) Anesthesia Focused Assessment* Temperature: 98.8 F Pulse Rate: 77 Blood Pressure: 126/85 Respiratory Rate: 18 Pulse Ox: 98 Airway Assessment Mouth opens: >3 cm Mallampati Score: II Labs Anesthesia Preop lab: CBC WBC 8.6 K/mm3 (4.4-11.0) 10/26/24 09:10 10/26/24 RBC 5.53 M/mm3 (4.6-6.2) 10/26/24 09:10 10/26/24 Hgb 16.2 g/dL (13.0-16.5) 10/26/24 09:10 10/26/24 Hct 47.6 % (40-54) 10/26/24 09:10 10/26/24 Plt Count 271 K/mm3 (150-450) 10/26/24 09:10 10/26/24 CHEMISTRY Potassium 4.0 mmol/L (3.3-5.1) 10/26/24 09:10 10/26/24 Sodium 141 mmol/L (133-145) 10/26/24 09:10 10/26/24 Magnesium 2.2 mg/dL (1.6-2.6) 08/06/22 05:43 08/06/22 Phosphorus 4.8 mg/dL (2.5-4.9) 08/06/22 05:43 08/06/22 BUN 16 mg/dL (4-19) 10/26/24 09:10 10/26/24 Creatinine 0.93 mg/dL (0.70-1.20) 10/26/24 09:10 10/26/24 Glucose 82 mg/dL (70-99) 10/26/24 09:10 10/26/24 POC Glucose 117 mg/dL (74-106) H 05/22/22 08:42 05/22/22 COAG PT 13.5 SECONDS (11.7-14.9) 05/22/22 08:42 Pre-Assessment Diagnosis/Proposed Procedure Planned Operative Procedure(s): RIGHT PATELLA ORIF Anesthesia History Anesthesia History - residential mortgage manager: Anesthesia History - residential mortgage manager Hx Hospitalization No 10/20/24 10:55 Any Problems With Anesthesia No 10/20/24 10:55 Cholinesterase deficiency No 10/20/24 10:55 You/Your Family Experience No 10/20/24 10:55 fever (hyperthermia) with Relationship Recent Exposure to Contagious No 10/27/24 09:35 Disease Does patient have nerve No 10/20/24 10:55 stimulator Patient instructed to have device shut off --Does patient have Pacemaker or ICD? When Was Last Pacemaker Check QUESTION #4 FULL TEXT: You/Your Family Experience fever (hyperthermia) with Anesthesia Last Oral Intake Last Oral intake: Last Oral Intake NPO since Meds taken in AM with sips of water? Meds patient instructed to take am of surgery PONV PONV - residential mortgage manager: PONV - residential mortgage manager Female No 10/20/24 10:55 HX of Motion Sickness No 10/20/24 10:55 HX of N/V After Surgery No 10/20/24 10:55 Non-Smoker Yes 10/20/24 10:55 Duration of Surgery greater Yes 10/20/24 10:55 than 60 minutes Number of Risk Factors 2 10/20/24 10:55 PONV Score Moderate Risk 10/20/24 10:55 Height & Weight Height & Weight: Anesthesia: Height & Weight Height 5 ft 6 in 10/27/24 09:42 Weight: 102.058 kg 10/27/24 09:42 Body Mass Index (BMI) 36.3 10/27/24 09:42 Respiratory Assessment Respiratory Assessment - residential mortgage manager: Respiratory Tract Infection Hx - residential mortgage manager Hx Respiratory Tract Infection No 10/20/24 10:55 STOP Sleep Apnea STOP Sleep Apnea - residential mortgage manager: STOP Sleep Apnea - residential mortgage manager Hx Hypertension Yes: NO MEDS FOR 1 YR 10/20/24 10:55 Hx Sleep Apnea No 10/20/24 10:55 CPAP BIPAP Do you snore loudly (louder No 10/20/24 10:55 than talking or can be heard Do you often feel tired/ Yes 10/20/24 10:55 fatigued/ sleepy during daytime? Has anyone observed you stop No 10/20/24 10:55 breathing during sleep? STOP Results Positive 10/20/24 10:55 QUESTION #5 FULL TEXT : Do you snore loudly (louder than talking or can be heard through closeddoors)? Tobacco Use History Tobacco Use History - residential mortgage manager: Tobacco Use History - residential mortgage manager Tobacco Use Non-smoker 04/08/23 08:40 Smoking Status Never smoker 10/20/24 10:55 Hx Tobacco Use No 10/20/24 10:55 Years Smoking Packs Smoked per Day Smoking Cessation Date was within the last 15 years Hx Smoking Cessation Date Hx Smoking Cessation Counseling Hematologic Medial History Hematologic Hx - residential mortgage manager: Hematologic Medical Hx - accident examiner Hx of Blood Transfusion No 10/20/24 10:55 Hx of Transfusion in last 3 No 10/20/24 10:55 Months Date of Last Transfusion (if within last 3 months) Ever experience any problems No 10/20/24 10:55 with transfusion(s)? Specify any problems Hx of Preganancy in last 3 N/A 10/20/24 10:55 Months Nurse Filling Out Transfusion DSCHRIBER 10/20/24 10:55 & Questions: Date: 10/20/24 10/20/24 10:55 Time: 10:58 10/20/24 10:55 Patient unable to answer at this time (ie. confused, unrespo /Reproduction History /Reproductive History - residential mortgage manager: /Reproductive Hx- residential mortgage manager Hx Now No 10/20/24 10:55 Gestational Age (in weeks): EDC: Hx Hx Para Hx Section SAB No 10/20/24 10:55 Active Medications Active Medications: Current Medications Generic Name Dose Route Start Last Admin Trade Name Freq PRN Reason Stop Dose Admin Cefazolin Sodium 2 gm/ Sodium 110 mls @ 150 mls/hr 10/27/24 11:00 Chloride IV 10/27/24 11:43 INTRAOP ONE Lactated Ringer's 1,000 mls @ 15 mls/hr 10/27/24 09:45 IV .Q48H FRANKLYN PFSH Medical History Wears glasses Anxiety Abrasion High cholesterol Pulmonary embolism Migraine headache Non-smoker History of pain when walking History of edema Ambulates with cane Patella fracture Aphasia as late effect of stroke Hemiparesis affecting right side as late effect of cerebrovascular accident Generalized weakness Hyperlipidemia Ischemic cerebrovascular accident (CVA) Fecal incontinence Urinary incontinence Debility 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 DVT (deep venous thrombosis) Subarachnoid hemorrhage Dissection of cerebral artery Obesity (BMI 30-39.9) Arterial ischemic stroke, MCA (middle cerebral artery), left, acute Stroke/cerebrovascular accident Hypertension Home Medications ?Medication ?Instructions ?Recorded ?Last Taken ?Type acetaminophen 500 mg tablet 500 mg PO Q6H PRN fever or pain 07/18/22 10/26/24 18:00 Rx (Acetaminophen Pain Relief) #90 tabs ipratropium bromide 42 mcg (0.06 [address] air way 08/05/22 10/27/24 History %) nasal spray cholecalciferol (vitamin D3) 125 125 mcg PO QDAY 10/1410/26/24 History mcg (5,000 unit) capsule omega 5-eph-tjw-fish oil 60 mg-90 1 cap PO QDAY 10/26/24 History mg-500 mg capsule (Fish Oil) FOUR LIFE 2 tab PO DAILY 10/20/2410/17 History TRANSFACTOR 1 tab PO DAILY 10/20/2410/17 History multivitamin (Daily Multi-Vitamin 1 tab PO DAILY 10/2010/26/24 History tablet) Allergy/AdvReac Type Severity Reaction Status Date / Time No Known Allergies Allergy Verified 10/27/24 09:33 Surgical History History of cholecystectomy History of appendectomy Status post craniectomy Status post aneurysm repair Status post craniotomy Social History adopted: No household members: family housing: house number of children: 0 current occupational status: disabled Smoking Status: Never smoker alcohol intake: never substance use type: does not use Review of Systems (Anesthesia) ROS Narrative System reviewed and no additional complaints, except as documented. 10/27/2452 > Date _ Ridge Kirby MD Cosigner Signature: Date CC: ~ Signed [facility]05-29-2025 Evaluation note* Diagnosis Onset Date Resolution Status Admit Date Closed fracture of right patella inactive October 14, 2024 1 :26pm Patella fracture acute October 12:37pm Status post open reduction a nd internal fixation (ORIF) of fracture of righ acute October 27, 2024 12:37pm [facility] Work Phone: 1(450) 376-983204-24-2024 Discharge summary Author Fabian Conrad [facility] September 10, 2023 10:57am Note Date/Time September 10, 2023 10: 57am [facility] Physical Therapy [facility] [facility] [place] [address] / REHABILITATION SERVICES DISCHARGE SUMMARY MR#: [id number] Acct: [id number] Name: ROMEO GONZALES Rep #: [id number] : 1985 37 From: Fabian Conrad PT, ATC Referring Dr.: Dr. Ander Nicholson DO Status: REG RCR Insurance: [facility] [employer] Discharge Summary D/C summary: It has been my pleasure to treat ROMEO GONZALES referred by Dr. Ander Nicholson, , with the diagnosis of R hemiparesis for a total of 8 visit(s). Discharge Date: Please see the following information for a summary of their discharge status. Subjective Subjective: Pt feels like he is ready to be finished with PT Overall Improvement % Improvement: 85 Objective Objective/Function: Pt is now I with HEP Pt is able to ambulate greater than 1000 feet with SBA and cane without difficulty Pt is able to perform 9 sit to stand transfers in 30 sec R LE strength 3/5 Goals Goal 1:: Increase R LE strength x 1/2 muscle grade to aid with sit to stand transfers Goal Progress: Not Progressing Goal 2:: Pt will perform 12 sit to stand transfers in 30 seconds Goal Progress: Not Progressing Goal 3:: Pt will be able to ambulate greater than 1000' with LRD to aid with community ambulation Goal Progress: Goal Met Goal 4:: I with HEP Goal Progress: Goal Met Plan Plan: Discontinue to HEP D/C Information d/c sentence: If there are questions or concerns regarding this patient's physical therapy, please feel free to call me at [phone]. Thank you for the referral of thispatient. Sincerely, Fabian Conrad, PT, ATC Balance/Gait/Functional tests Balance/Special Test Scores Lower Extremity Functional Score: 32 Improvement % Improvement: 85 <Electronically signed by Fabian Conrad PT, ATC> 09/10/23 1057 CC: Dr. Ander Nicholson, ~ [facility] Signed [facility] Work Phone: 1(775) 472-268707-29-2023 Discharge summary Author Armen Alexis [facility] December 14, 2022 6:10am Note Date/Time December 14, 2022 3:59 am [facility] Medical Records Department [address] [place] [address] Emergency Department Summary 12/14/22 MR#: [id number] Acct: [id number] Name: ROMEO GONZALES Rep #:[id number] : 1985 37 From: Armen Alexis MD PCP: Dr. Ander Nicholson DO Status:REG ER Location: ED HPI HPI - GI History of Present Illness Chief Complaint: Abd Pain Informant: patient Narrative Narrative: Patient with 1.5 hours of upper abdominal pain, nausea, dry heaving. Woke him up in the middle the night. He was sweaty. He states his abdomen is not hurting him anymore. Family concerned, he has a history of a stroke from a subarachnoid hemorrhage/ruptured cerebral aneurysm that was clipped, he is at baseline neurologically. History of cholecystectomy and appendectomy, some of the history is from the patient but most is from family. [facility] Medical History (Updated 12/14/22 @ 06:[address] Armen Alexis MD) Aphasia as late effect of stroke Arterial ischemic stroke, MCA (middle cerebral artery), left, acute Current use of retirement anticoagulation Debility Dissection of cerebral artery DVT (deep venous thrombosis) Fecal incontinence Generalized weakness Hemiparesis affecting right side as late effect of cerebrovascular accident Hyperlipidemia Hypertension Ischemic cerebrovascular accident (CVA) Obesity (BMI 30-39.9) Stroke/cerebrovascular accident Subarachnoid hemorrhage Urinary incontinence Home Medications acetaminophen 500 mg tablet (Acetaminophen Pain Relief) 500 mg PO Q6H PRN fever or pain #90 tabs 07/18/22 [Rx Last Taken Unknown] apixaban 5 mg tablet 5 mg PO BID Blood clots 03/20/23 [History Last Taken Unknown] atorvastatin 20 mg tablet 20 mg PO QHS cholesterol 08/05/22 [History Last Taken Unknown] ipratropium bromide 42 mcg (0.06 %) nasal spray 2 spray NASAL BID airway 08/05/22 [History Last Taken Unknown] menthol-zinc oxide 0.5 %-20.65 % topical ointment (DermaSeptin) See Rx Instructions .ROUTE .COMPLEX redness 08/05/22 [History Last Taken Unknown] Arthritis Pain Compound 3 click topical TID #2 BOTTLES 08/23/22 [Rx Last Taken Unknown] apixaban 5 mg (74 tabs) tablets in a dose pack (EliquNunook Interactive DVT-PE Treat 30D Start) 5 mg PO BID #74 tabs 12/14/22 [Rx Last Taken Unknown] dicyclomine 10 mg capsule 20 mg (2 x 10 mg) PO Q6H PRN PRN abdominal pain #20 CAPSULES 12/14/22 [Rx Last Taken Unknown] ondansetron 4 mg disintegrating tablet 8 mg (2 x 4 mg) PO Q8H PRN PRN Nausea #20tabs 12/14/22 [Rx Last Taken Unknown] Allergy/AdvReac Type Severity Reaction Status Date / Time No Known Allergies Allergy Verified 12/14/22 03:41 Surgical History (Updated 12/14/22 @ 03:[address] Armen Alexis MD) History of appendectomy History of cholecystectomy Status post aneurysm repair Status post craniectomy Status post craniotomy Social History adopted: No household members: family housing: house number of children: 0 current occupational status: disabled Smoking Status: Never smoker alcohol intake: never substance use type: does not use ROS ROS ED Constitutional Constitutional ED: Reports sweats; Denies chills or fever(s) Eyes Eyes: Denies change in vision ENT ENT ED: Denies sore throat Cardiovascular Cardiovascular: Denies chest pain or palpitations Respiratory/Chest Respiratory/Chest: Denies cough or dyspnea Gastrointestinal Gastrointestinal: Reports abdominal pain, nausea and vomiting; Denies diarrhea Genitourinary Genitourinary ED: Denies dysuria or hematuria Musculoskeletal Musculoskeletal: Denies back pain or neck pain Integumentary Denies abscess or rash Neurologic Neurologic: Reports as per HPI and weakness; Denies headache(s) Psychiatric Psychiatric: Denies anxiety or suicidal thoughts EXAM Physical Exam Const Vital Signs: 12/14/22 03:39 Temperature 98.2 F Temperature Source Temporal Pulse Rate 83 Respiratory Rate 18 Blood Pressure 111/85 H Blood Pressure Mean 93 Pulse Ox 98 Oxygen Delivery Method Room Air Positive well nourished and well developed General Appearance ED: well developed and NAD HEENT Reports moist mucous membranes normocephalic and atraumatic Eyes PERRL and EOMs intact bilaterally Neck full ROM and supple Resp normal respiratory effort and clear to auscultation bilaterally Cardio regular rate, regular rhythm and no murmurs Rate: Negative for tachycardic GI GI Narrative: No distention. Subjectively tender throughout, nonfocal. No objective tenderness or wincing/guarding or rebound tenderness. Normal inspection no Kee sign or Waller Fuentes sign. Auscultation: normoactive bowel sounds Palpation: soft Back/Spine no CVA tenderness General Back: other FROM Extremity normal to inspection General Extremety ED: Negative for edema, pulses abnormal or tenderness General Extremity: Negative for edema or pulses abnormal Neuro CN's II-XII intact bilaterally Neuro Narrative: Weak throughout right side worse in the arm than the leg, some trouble speaking,at baseline according to family. Sensorium / Orientation: awake and alert Skin no rashes or lesions noted and no wounds MDM MDM MDM Narrative Medical decision making narrative: Patient difficult to evaluate given his history of cognitive dysfunction from his stroke from subarachnoid hemorrhage, family in agreement. Subjectively tender diffusely with vomiting, which is apparently unusual for him. Labs obtained he does have a leukocytosis with a leftward trend/shift, no bandemia, and the rest of his labs are unremarkable including urinalysis. Sent him for CTof the abdomen/pelvis with IV contrast, bowel obstruction and differential as ismultiple causes of intestinal pain, pancreatitis ruled out with normal lipase, hernias, etc. I reviewed the images of the CT as well as the radiologist's report, and I discussed with the radiologist and agree with him. Basically the abdomen/pelvis is unremarkable for anything acute, but incidentally he has luminal defects in branches of pulmonary arteries in both lower lobes, and radiology was able to confirm that there is no sign of any right heart strain. In discussing with the patient and family, he had a history of blood clots in the right upper extremity due to it being paralyzed, a couple months ago he had a negative ultrasound showing resolution of the clot and so his Eliquis was discontinued, and he no longer is on it. Given this, and the fact that we already gave him contrast for CT abdomen/pelvis, I am not obtaining an emergent CTA, however we have enough information with his normal vital signs, pulse ox 98% on room air, lack of any pulmonary symptoms even, and lack of any right heart strain that I think it would be reasonable to simply anticoagulate him andhave him follow-up regarding this. Regarding his abdomen/pelvis, he was treatedhere with IV fluids, Zofran, dicyclomine. He felt better and rested the majority of the rest of his stay without any vomiting. Likely functional cause of his abdominal pain, constipation is a possibility as well as infectious gastroenteritis. Supportive care advised for now close a patient follow-up, he was given a 1.5 mg/kg subcutaneous injection of Lovenox anticoagulate him now, and that we will give them the day to get his Eliquis and start that tomorrow morning. Also given prescriptions for Zofran and dicyclomine to use as needed, we discussed reasons to return they are comfortable with that plan of following up. History & Record Review Discussion w/independent historian: Patient and Family Lab Data Attestation: I reviewed the patient's lab results. Labs: Laboratory Results - last 24 hr 12/14/22 12/14/22 04:12 04:28 WBC 15.1 H RBC 5.50 Hgb 14.9 Hct 46.0 MCV 83.6 MCH 27.1 MCHC 32.4 RDW Std Deviation 40.9 RDW Coeff of Jordi 13.4 Plt Count 325 MPV 8.7 Immature Gran % (Auto) 0.300 Neut % (Auto) 81.1 H Lymph % (Auto) 11.4 L [place] % (Auto) 5.4 Eos % (Auto) 1.3 Baso % (Auto) 0.5 Absolute Neuts (auto) 12.3 H Absolute Lymphs (auto) 1.72 Nucleated RBC % 0 Sodium 139 Potassium 4.2 Chloride 106 Carbon Dioxide 28.0 Anion Gap 5 BUN 15 Creatinine 1.03 Estim Creat Clear Calc 86.89 Est GFR (MDRD) Af Amer 103 Est GFR (MDRD) Non-Af 85 BUN/Creatinine Ratio 14.6 Glucose 147 H Calcium 9.4 Total Bilirubin 0.40 AST 12 L ALT 38 Alkaline Phosphatase 139 H Total Protein 7.9 Albumin 3.5 Globulin 4.4 H Albumin/Globulin Ratio 0.8 L Lipase 39 Urine Color Yellow Urine Clarity Clear Urine pH 5.0 Ur Specific [place] 1.030 Urine Protein 30 H Urine Glucose (UA) Normal Urine Ketones 5 H Urine Occult Blood Negative Urine Nitrite Negative Urine Bilirubin Negative Urine Urobilinogen 1 H Ur Leukocyte Esterase 25 H Urine RBC 0-5 SEEN Urine WBC 0 SEEN Ur Squamous Epith Cells 0 SEEN Urine Bacteria 1+ Urine Mucus 1+ Radiography Diagnostic Testing: Clinical Impression(s) from Imaging Studies Abdomen/Pelvis CT 12/14/22 03:55 IMPRESSION: 1. Findings of pulmonary thromboembolic disease identified within the right middle lobe and both lower lobes. No right ventricular strain. 2. No acute intra-abdominal abnormality identified. Nonstandard communication protocol initiated. Electronically Signed: Luis Jimenez MD at 5:43 EDT , ADDENDUM: 12/14/22 0602 IMPRESSION: 1. Findings of pulmonary thromboembolic disease identified within the right middle lobe and both lower lobes. No right ventricular strain. 2. No acute intra-abdominal abnormality identified. Nonstandard communication protocol initiated. N.B. : The above Results were Read Back by Luis Jimenez MD to Armen Alexis MD, and understanding confirmed on 12/14/2022 05:56:02 (ET). Electronically Signed: Luis Jimenez MD at 5:43 EDT , Discharge Plan Triage Chief Complaint: Abd Pain ED Provider: Armen Alexis Dx/Rx/DC Orders Clinical Impression: Abdominal pain, diffuse, Pulmonary embolism, Vomiting Instructions: Embolism Pulmonary Dc, ED Vomiting (Adult) Prescriptions: New Eliquis DVT-PE Treat 30D Start 5 mg (74 tabs) tablets,dose pack 5 mg PO BID Qty: 74 0RF Rx Instructions: use as directed dicyclomine 10 mg capsule 20 mg PO Q6H PRN PRN (Reason: abdominal pain) Qty: 20 0RF ondansetron [ondansetron] 4 mg tablet,disintegrating 8 mg PO Q8H PRN PRN (Reason: Nausea) Qty: 20 0RF No Action acetaminophen [Acetaminophen Pain Relief] 500 mg tablet 500 mg PO Q6H PRN (Reason: fever or pain) Qty: 90 6RF Rx Instructions: 1-2 tabs PO every 6 hours as needed for pain or fever atorvastatin 20 mg tablet 20 mg PO QHS ipratropium bromide 42 mcg (0.06 %) spray,non-aerosol 2 spray NASAL BID DermaSeptin 0.5-20.65 % ointment See Rx Instructions .ROUTE .COMPLEX Rx Instructions: apply topically to the verena-rectal area BID and after BM's apixaban 5 mg tablet 5 mg PO BID Rx Instructions: 1 tab every 12 hours. Arthritis Pain Compound 3 click topical TID Qty: 2 3RF Primary Care Provider: Ander Nicholson Referrals: Ander Nicholson DO [Primary Care Provider] - As soon as possible (call Friday ajmal appt) Activity Restrictions/Additional Instructions: Start Eliquis tomorrow morning, 12/15 Disposition Disposition: Home, Self Care What to do if you have Problems For any increased pain, shortness of breath, bleeding, nausea or vomiting, chestpain, or any unexpected problems, contact your Primary Care Provider. Call [facility] ([phone]) or report to the closest Emergency Room. Call 911 if necessary. 12/14/22 0610 <Electronically signed by Armen Alexis MD> Cosigner Signature (if applicable): CC: Dr. Ander Nicholson DO ~ Signed [facility] Work Phone: 1(980) 354-149405-02-2023 History of Present illness Narrative* Eyad Mujica MD, PhD - 09/17/2022 1:00 PM EDT Mr. Gonzales is a 36-year-old man who returns for follow up after autologous left cranioplasty on August 01. He had originally suffered a malignant left MCA stroke as a result of attempted treatment ofa giant aneurysm. He did well after the cranioplasty and went home. He comes in today doing well. He has had no new neurologic symptoms or wound problems. On physical exam he is awake and alert, oriented to self and situation, but not location. He names simple objects correctly. He has a dense right upper extremity plegia. He has excellent strength in his left arm and legs. His eyes move normally. His incision is healing well. I am happy he continues to recover. He doesn't need to wear the helmet. He will need a follow up head CT at six months. * Tiffanie Ronquillo, FISCAL ASSISTANT-CONCIERGE MANAGER - 09/17/2022 1:00 PM EDT Romeo Gonzales is a 36 year old male who returns to vascular neurosurgery clinic with his mom and sister for hospital follow up following elective cranioplasty. In brief, he suffered ICH in May 2022secondary to left MCA fusiform aneurysm. We attempted to reconstruct the MCA and he suffered a dissected MCA. We ended up wrapping the aneurysm and leaving the flap off. He also needed PEG placement.He went to rehab for recovery and was able to regain a significant amount of speech and function. He returned for cranioplasty on 07/30/2022. We removed the PEG at that time and transferred him to [facility] rehab to complete his therapy. He returned home on 08/23/2022. Since being home, he goes to Outpatient PT and OT. Speech has not been approved. He can do 75% effort laying to sitting, 90% effort sitting to standing. He can walk with a hemiwalker and gait belt upto 100 ft supervised. He can control his bowels consistently, but remains urine incontinent even with bladder training. He has not had any seizures. He is napping during the day. He does not sleep thr ough the night yet. He denies any headache or pain. He can feed himself regular textures, but cannot do meal prep. No problems with PEG site. He cannot read well, but he can identify words correctly.He went to the case planner, he has right visual field cut. Family denies anxiety or depression,although every once inawhile he will have some tearfulness. He has reduced sensation in the right up per and lower. He remains right hemiparetic, but his sister said they noted some involuntary movement of his right forearm/biopsy yesterday in therapy. Medications/allergies reviewed and updated in chart. He has seen his PCP and his family stopped hisblood pressure meds, apixiban and cholesterol meds. Medical comorbidities: obesity, hypertension, hyperlipidemia, aphasia, right hemianopsia, right hemiparesis, urine incontinence. Medications reviewed and updated in chart. Lives with parents and sister. No smoking, alcohol, drugs. Applied for disability and has not had ruling yet. ROS: 12 point as above. PE: Vitals: 09/17/22 1317 BP: 120/81 Pulse: 83 Temp: 98.7 degrees F (37.1 degrees C) TempSrc: Temporal SpO2: 97% Weight: 106.6 kg (235 lb) Height: 1.676 m (5' 6) Alert and oriented x 3. Pleasant. Slight dysarthria. Can slowly follow simple commands, but not twostep commands. Self-corrects. Can name simple objects. Cannot read. Can write with his left hand. He is right handed. Face symmetric. Tongue midline. Right upper and lower visual field deficit. Rightface sensation decreased compared to left. Neck ROM intact. Breathing unlabored on room air. Pulsespresent in periphery. Abd PEG site healed. Abd soft, non tender. AFO to right leg. Right hand is slightly swollen and slightly mottled. Sensation to light touch decreased right upper and lower. Left upper and lower full strength/ROM/sensation. No drift. Incision to head well-approximated. I removed some small dissolvable sutures through the defect without any drainage. A/P 1. Acquired skull defect. Discussed wound healing and concerns for any infection or thinning of skin. WIll plan reimage with MRI brain in 6 months to eval bone healing. 2. Left MCA stroke secondary to ruptured fusiform aneurysm. Discussed continued aggressive efforts at therapies to regain independence. He has made tremendous progress already. We discussed his personal risk factors of hyperlipidemia, obesity, and hypertension, but his family would prefer him to not be on these medications. PCP will need to continue to monitor. Will plan MRI brain to evaluate brain health as well as MRA brain to evaluate wrapped aneurysm in 6 months, locally in [place]. Monitor for depression and anxiety. SUpportive counseling given for caregiver stress as well. 3. Aphasia. Will send them to [facility] where they train therapists andhe could get some treatments for free. [phone]. 4. Right hemiparesis. Agree that applying for disability is appropriate due to both the cognitive and movement limitations. We discussed that there is likely not as significant a role for neurology at this point and that the majority of the recovery should be managed by PMR. I spent 35 minutes with patient and family independent of global care: chart review/abstract, discussion of plan of care, discussion of stroke risks and modification, coordination with community services, answering questions and supportive counseling. [facility] Instructions* Patient Instructions* ROJELIO Leone - 09/17/2022 1:00 PM EDT MRI brain in 01/2023 in [place] to eval bone and brain MRA brain in 01/2023 to eval aneurysm. Call with results. documented in this encounter[facility] Wallace [facility] September 03, 2022 10:58am Note Date/Time September 03, 2022 10: 58am [facility] Medical Records Department [address] [place] [address] Progress Note 09/03/22 1056 MR#: [id number] Acct: [id number] Name: ROMEO GONZALES Rep #:[id number] : 1985 36 From: Kristyn Wallace DO PCP: Dr. Ander Nicholson, DO Status:REG CLI Location: [facility] Progress Note Romeo had a venous US of the R arm yesterday and it is negative for clot. I called Gege and told her that Romeo can discontinue the Eliquis now. She told me that Romeo is now letting them know when he has to use the restroom now......more often than not. He is being more verbal. 09/03/22 1058 <Electronically signed by Kristyn Wallace DO> Kristyn Wallace DO Cosigner Signature (if applicable): CC: ~ Signed [facility] Work Phone: 1(969) 713-178304-07-[address] Wallace [facility] August 23, 2022 11:13am Note Date/Time August 23, 2022 10:3 2am [facility] Medical Records Department [address] [place] [address] Instructions for Home/Discharge Instructions 08/23/22 1027 MR#: [id number] Acct: [id number] Name: ORMEO GONZALES Rep #:[id number] : 1985 36 From: Kristyn Wallace DO PCP: Dr. Ander Nicholson, DO Status:ADM IN Discharge Instructions Diet Discharge Diet: - (2,000-2,200 calorie diet, carb consistent, low salt and low fat. ) Activity Discharge Activity: Return to Normal Activity, May Not Drive, May Shower and UseWalker (Use hemiwalker.) Weight Bearing Status: Full weight bearing Keep extremity elevated above heart level: Right Arm Dressing / Incision Call your doctor if your incision/area has: Increased Pain/ Swelling, Increased Redness, Foul Smelling Discharge and Swelling at the incision site Call your doctor if you observe: Fever of 101 or Higher, Inability to urinate, Inability to have a bowel movement, Shortness of breath, Dizziness, Fainting spells, Chest pain, Increased palpitations (irregular heartbeat), Calf discomfort, Uncontrolled pain and - (STROKE symptoms: facial droop, slurred speech, inability to get words out, weakness on 1 side of the body and not the other, numbness on 1 side of the body and not the other, inability to maintain your balance sitting or standing, vertigo. ) Suture Line Care: Avoid Pulling/Pushing and Avoid Pinching/Bending Change Dressing in: do not change dressing (No dressing needed on the incision. Change the Mepilex dressing on the abrasion of the R Buttock every 3 days and as needed for soiling) Cleanse incision/area with: Soap & Water and Keep Dressing Clean & Dry Follow Up Care Please Follow Up With: Ander Nicholson DO When: 1-2 weeks Test Results: Test results from this visit will be discussed in further detail at your follow- up appointment, if applicable. Pending Tests Upon Discharge: none Discharge Plan Admission Admit Date/Time: 08/05/22 16:30 Primary Reason for Your Visit: Debility post craniotomy to replace bone flap. Attending Provider: Kristyn Wallace Primary Care Provider: Ander Nicholson Instructions Additional Instructions / Restrictions: 1. It has been a pleasure getting to see you and your family again. You have done very well in therapy and we all look forward to your great smile. With stroke improvement takes time and is a gradual process with baby step improvement but, You are doing better all the time. I love your positive attitude. 2. Since you do need a significant amount of assistance for certain activities yet and Gege is a small person I would like you to try and lose some weight. Weight loss will also help with keep you off blood pressure medication and help prevent you from having diabetes since it does run in your family. It will alsohelp control the cholesterol to consume a low fat diet. 3. You have a very mild elevation in your liver tests. I suspect this may be related to Atorvastatin. It is not so elevated that I would stop Atorvastatin but, it needs to be monitored every 3 months for the next year and if it continues to increase I would consider changing to another lipid lowering agent. 4. We have been using a compounded cream the pharmacist mixes up to help with the neck pain and muscle spasms. This cream contains a medication for pain control, a muscle relaxer and an anesthetic. Unfortunately insurance usually does not pay for this. I sent a prescription to the retail pharmacy for the cream. If you can not afford the medication you could use Voltaren Gel which isavailable over the counter at any pharmacy. 5. I am giving you a requisition to get an ultrasound of the R arm to see if the clot is still there or it has resolved. If there is no longer any clot you can stop the Eliquis. 6. Take care Romeo and Karan Coombs to you and your wonderful family. Please do not hesitate to call me with any questions after you leave rehab. I will send Dr. Nicholson a copy of my discharge summary so he will know what progress you have made in rehab and some of the things we are still working on. OFFICE: [phone] CELL: [phone] Discharge Orders/Prescriptions Prescriptions: New Arthritis Pain Compound 3 click topical TID Qty: 2 3RF Continued acetaminophen [Acetaminophen Pain Relief] 500 mg tablet 500 mg PO Q6H PRN (Reason: fever or pain) Qty: 90 6RF Rx Instructions: 1-2 tabs PO every 6 hours as needed for pain or fever atorvastatin 20 mg tablet 20 mg PO QHS ipratropium bromide 42 mcg (0.06 %) spray,non-aerosol 2 spray NASAL BID DermaSeptin 0.5-20.65 % ointment See Rx Instructions .ROUTE .COMPLEX Rx Instructions: apply topically to the verena-rectal area BID and after BM's apixaban 5 mg tablet 5 mg PO BID Rx Instructions: 1 tab every 12 hours. Discontinued sennosides-docusate sodium [Lax Stool Softener With Senna] 8.6-50 mg tablet 1 tab-cap PO BID Qty: 60 0RF sodium chloride 1,000 mg Tablet,Soluble 1,000 mg PO DAILY Qty: 30 0RF acetaminophen [Tylenol] 325 mg Tablet 650 mg PO Q4H PRN (Reason: Pain) oxycodone-acetaminophen 5-325 mg Tablet 1 tab PO Q6H PRN (Reason: Pain) menthol-zinc oxide [Calmoseptine] 0.44-20.6 % Ointment 1 applic TOPICAL BID carvedilol 3.125 mg tablet 3.125 mg PO BIDCM Other Ambulatory Orders: Venous Duplex US, Unilateral (Routine) Facility: [facility] - Location: [facility] Ordered By: Dr. Kristyn Wallace Referrals / Follow Up: Eyad Mujica-Neuro [Other] - 09/17/22 1:00 pm Ander Nicholson DO [Primary Care Provider] - Disposition Disposition (needs filled in before D/C Order can be placed): Home, Self Care 08/23/22 1113<Electronically signed by Kristyn Wallace DO>Kristyn Wallace DO CC: Dr. Ander Nicholson DO ~ Signed [facility] Work Phone: 1(391) 396-417204-07-[address] Wallace [facility] August 23, 2022 10:58am Note Date/Time August 22, 2022 12:0 7pm [facility] Medical Records Department [address] [place] [address] Progress Note 08/22/22 1204 MR#: [id number] Acct: [id number] Name: ROMEO GONZALES Rep #:[id number] : 1985 36 From: Kristyn Wallace DO PCP: Dr. Ander Nicholson, DO Status:ADM IN Location: [place] [address] Subjective Subjective Romeo was seen on team rounds today. His Sister Gege was present in the room and has been coming in all week for family training. Afebrile VSS-blood pressure has remained within goal 1 week after discontinuing Coreg. Maintaining appropriate oxygen saturation on RA Oral intake is good Discussed with nursing - no problems that need addressed Reviewed the PT/OT/ST notes Medication list reviewed. All labs from 08/21/2022 was personally reviewed. The CBC is normal. The BMP is unremarkable with the exception of an elevated BUN at 20 with a creatinine of 0.97. The BUN/creatinine ratio is 20.6. Hemoglobin A1c is 5.7 which is consistent with glucose intolerance. He is currently on a regular diet. No complaints from Romeo. He appears comfortable and is smiling. Has had a few BM's on the toilet! Remains incontinent of urine. Objective Data Objective Data Vital Signs: Vital Signs Temp Pulse Resp BP Pulse Ox O2 Del Method 97.5 F L 69 14 124/83 H 97 Room Air 08/22/22 07:19 08/22/22 07:19 08/21/22 21:00 08/22/22 07:19 08/22/22 07:19 08/22/22 07:19 Oxygen Delivery Method Room Air Weight: 212 lb 15.465 oz Body Mass Index (BMI) 34.2 Intake & Output: Intake and Output for Last 24 Hours 08/20/22 08/21/22 08/22/22 23:59 23:59 23:59 Intake Total 340 / 340 820 / 820 Output Total 350 / 350 250 / 250 Balance -10 / -10 570 / 570 Lab / Micro Data Result Diagrams: 08/21/22 05:26 08/21/22 05:26 Physical Exam Const alert, oriented x3 and no apparent distress General Appearance: cooperative Eyes PERRL and EOMs intact bilaterally Neck Neck Narrative: more supple than at admission. Still wants to hold his head SB R and rotated L. Therapists have been doing daily massage and taught Gege what to do. Family plans on taking Romeo to a chiropractor after DC and I think this is an excellent idea. Resp normal respiratory effort, normal air movement and clear to auscultation bilaterally Effort and Inspection: Negative for tachypneic or labored Cardio regular rate, regular rhythm, no murmurs, no rub and no gallops GI normal to inspection, nondistended, normoactive bowel sounds, soft to palpation and non-tender GI Narrative: No guarding with palpation. No suprapubic pain. Denies dysuria. Extremity no calf tenderness General Extremity: Negative for edema Skin Rashes: no rashes Wound Narrative: The abrasion on the R buttock is smaller and healing. There is no erythema around the abrasion and there is no purulent drainage. There is a small amount of serosanguineous drainage on the dressing. He denies pain. Neuro Neuro Narrative: Still with facial droop. No drooling. No visual deficits. RUE flaccid. RLE weak but he is ambulating and requiring only minimal assistance with advancing the R LE. Yesterday he ambulated 72'. Can dress his UE's with supervision/st up. Max assist for lower body dressing. He requires only moderate assistance for showering and/bathing now. He is min assist with toilet transfer but total assist with toileting. Psych cooperative and affect normal Appearance: appropriate Assessment & Plan Assessment/Plan (1) Debility: (2) Status post craniectomy: (3) Generalized weakness: (4) Hemiparesis affecting right side as late effect of cerebrovascular accident: (5) Urinary incontinence: (6) Fecal incontinence: (7) Cognitive dysfunction due to stroke: (8) Kaylene-inattention: (9) Aphasia as late effect of stroke: (10) Hyperlipidemia: (11) DVT (deep venous thrombosis): (12) Current use of retirement anticoagulation: (13) Hypertension: (14) Torticollis, acquired: PLAN: Plan 1. Continue therapy. 2. the HGBA1C is elevated at 5.7. Romeo is not very mobile due to the stroke and he is in bed a lot. He has glucose intolerance and his wt is gradually increasing. He is on Lipitor but, he is not on a low fat, low salt diet. Will discuss with the team coordinator changing the diet order and ask that she educate Gilmarfito what Romeo should be eating. 3. Plan DC home Friday. 4. No antihypertensives needed at discharge but his Sister Gege will take his blood pressure at home and keep a record to take to his primary care doctor. Charges/Coding Visit Charges Inpatient E&M: 42143 Subs Hosp L2 08/23/22 1027 <Electronically signed by Kristyn Wallace DO> Kristyn Wallace DO Cosigner Signature (if applicable): CC: ~ Signed ADDENDUM by Dr. Kristyn Wallace DO on 08/23/22 at 1058 Addendum Elevated HGBA1C to be added to the diagnoses. 08/23/22 1058 <Electronically signed by Kristyn figueredo DO> Date _ Kristyn Wallace DO Cosstaci Signature (if applicable): Date cc: ~* Signed [facility] Work Phone: 1(740) 836-735604-04-[address] Wallace [facility] August 20, 2022 4:04pm Note Date/Time August 19, 2022 11:5 4am [facility] Medical Records Department [address] [place] [address] Progress Note 08/19/22 1151 MR#: [id number] Acct: [id number] Name: ROMEO GONZALES Rep #:[id number] : 1985 36 From: Kristyn Wallace DO PCP: Dr. Ander Bharat, DO Status:ADM IN Location: [facility] MH963-3 Subjective Subjective Afebrile VSS-blood pressure has remained within goal with the discontinuation of Coreg. Heart rate is within normal limits. Maintaining appropriate oxygen saturation on RA Oral intake is very good Discussed with nursing - I am told he has an open area on the buttocks now. Reviewed the PT/OT/ST notes Medication list reviewed. Romeo is answering all my questions with the answer a little bit today. Expressive aphasia is worse than the receptive. He does not appear to be in anypain. He is not having labored breathing, he is not coughing and is not restless in the bed. He is smiling and in a good mood. Objective Data Objective Data Vital Signs: Vital Signs Temp Pulse Resp BP Pulse Ox O2 Del Method 97.4 F L 77 16 119/86 H 95 Room Air 08/19/22 07:38 08/19/22 07:38 08/19/22 07:38 08/19/22 07:38 08/19/22 07:38 08/19/22 07:38 Oxygen Delivery Method Room Air Weight: 212 lb 8.41 oz Body Mass Index (BMI) 34.1 Intake & Output: Intake and Output for Last 24 Hours 08/17/22 08/18/22 08/19/22 23:59 23:59 23:59 Intake Total 60 / 60 1520 / 1520 530 / 530 Output Total 500 / 500 750 / 750 200 / 200 Balance -440 / -440 770 / 770 330 / 330 Lab / Micro Data Result Diagrams: 08/06/22 05:43 08/06/22 05:43 Physical Exam Const alert, no apparent distress and well nourished Resp clear to auscultation bilaterally Cardio regular rate, regular rhythm and no gallops GI normal to inspection, nondistended, normoactive bowel sounds, soft to palpation and non-tender GI Narrative: No guarding with palpation Inspection: Negative for abdominal distention Extremity no calf tenderness General Extremity: Negative for edema Skin Rashes: no rashes Wound Narrative: He has an abrasion on the left buttock......more of an abrasion rather than a decub. It is more likely than not due to friction from pulling him up in bed. There is no erythema around the area and it is not swollen. There is an linear eschar present and there is no discharge. The wound is linear. Neuro Neuro Narrative: R arm is still flaccid. He is able to move his R leg forward while ambulating now. Facial droop is still present. He is able to pull himself over onto his Rside by grabbing onto the bed rail with his left hand and pulling. He is able to get his shirt on without assist. Psych cooperative and affect normal Psych Narrative: Romeo does not look stressed or depressed. He is always smiling and attempts everything the therapists ask of him. He does not initiate activities on his own. Assessment & Plan Assessment/Plan (1) Debility: (2) Status post craniectomy: (3) Generalized weakness: PLAN: much improved since admission. 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 Romeo Sister Gege came in for family training today and she was taught therapeutic massage by the physical therapist. Romeo prefers to keep his head SB to the R and rotated to the left........Gege will try and get him to straighten his neck at home and avoid the SB and rotation. PLAN: Plan 1. Continue therapy 2. Plan discharge for this Friday to home with his family. 3. Gege had several questions for me. a. Can Romeo go to a chiropracter to help with his neck......YES b. Should he be put back on an antihypertensive when he is going home because she feels that he might be more stressed. I explained to her that Suryonexhibits no signs of anxiety. Since the stroke he has lost the ability to initiate activity but is able to follow instructions. His blood pressure off Coreg for the past 4 days has ranged from 110/77 to 123/83. I asked her to obtain a BP cuff and start taking Romeo's BP a few times a day and then take therecord to his next visit with his PCP. If the systolic is consistently > 130 orthe diastolic > 80 she will call me. The goal for Romeo's BP is < 130/80. c. Can Romeo have the US of his R arm to see if the DVT has resolved whilehe is in rehab. NO but, I did tell her I will give him a requisition to obtain an venous US as an OP following DC from rehab. d. I explained to Gege that she needs to let Romeo do the things he can dofor himself to maintain his strength and function or he will decline. She is not to help with the things Romeo is able to do. This was explained by PT as well today. Charges/Coding Visit Charges Inpatient E&M: 32789 Subs Hosp L2 08/20/22 1601 <Electronically signed by Kristyn Wallace DO> Kristyn Wallace DO Cosigner Signature (if applicable): CC: ~ Signed ADDENDUM by Dr. Kristyn Wallace DO on 08/20/22 at 1604 Addendum Gege also wanted to know if they should be giving Romeo Ensure shakes at home tokeep up his nutrition. I told her I do not think he needs supplements at this point. He is a good eater and as long as he stays on a low-fat low-salt diet with some carb control he should be fine. Romeo's FBS's are sometimes high but,HGBA1C in May was 5.5. I explained it would not be good for Romeo to gain weight.....he may become glucose intolerant or diabetic and it would also make it harder for family to care for him. 08/20/22 160 <Electronically signed by Kristyn figueredo DO> Date _ Kristyn Wallace DO Cosigner Signature (if applicable): Date cc: ~* Signed [facility] Work Phone: 1(399) 496-767903-30-[address] Wallace [facility] August 15, 2022 3:43pm Note Date/Time August 15, 2022 3:4 3pm [facility] Medical Records Department [address] [place] [address] Progress Note 08/15/22 1533 MR#: [id number] Acct: [id number] Name: ROMEO GONZALES Rep #:[id number] : 1985 36 From: Kristyn Wallace DO PCP: Dr. Ander Nicholson, DO Status:ADM IN Location: [place] [address] Subjective Subjective Romeo was seen on team rounds today. His mother and his Sister Gege were present in the room and his Sister Joan participated by phone. All questions were answered. Afebrile VSS Maintaining appropriate oxygen saturation on RA Oral intake is good Discussed with nursing - no problems that need addressed Reviewed the PT/OT/ST notes - Romeo had a BM on the toilet today and told the OT he could of feel something while he was going. He has walked up to 60 ft andtoday he was able to do a step. Medication list reviewed. Romeo tells me that his neck still hurts but it is better with Baclofen. The arthritis cream helps. He still has some torticollis and the head is SB R and rotated L at rest. He is restricted ROM with rotation to the R and SB to the left. There is a lot of paracervical spasm in the neck.....amberly on the R. HRRR L - CTA ABD -soft, NT, ND, regular bowel function no calf tenderness with palpation and no edema Incision remains intact with no dehiscence, no erythema and no discharge. Impressions 1. Debility due to recent craniotomy to replace the bone flap from the craniectomy in June for ruptured L MCA aneurysm. 2. aphasia Expressive> receptive. 3. Fecal and urinary incontinence. He was able to have a bowel movement on thetoilet today and said that he could feel something. 4. Right upper extremity is flaccid. Right lower extremity is weak but he is ambulating much better now and was able to do 1 step today. 5. He is progressing with speech therapy and the speech therapist discussed using a board so that Romeo could communicate with his family better because he is able to read. 6. Massage to the cervical area and the trapezius muscles BL and gentle stretching. Following tx his neck was straight and the chin was on the midline. Will re- evaluate in the AM. Objective Data Objective Data Vital Signs: Vital Signs Temp Pulse Resp BP Pulse Ox O2 Del Method 98.2 F 74 15 110/75 95 Room Air 08/15/22 07:58 08/15/22 07:58 08/15/22 07:58 08/15/22 07:58 08/15/22 07:58 08/15/22 07:58 Oxygen Delivery Method Room Air Weight: 212 lb 8.41 oz Body Mass Index (BMI) 34.1 Intake & Output: Intake and Output for Last 24 Hours 08/13/22 08/14/22 08/15/22 23:59 23:59 23:59 Intake Total 50 / 50 960 / 960 1230 / 1230 Output Total 450 / 450 450 / 450 250 / 250 Balance -400 / -400 510 / 510 980 / 980 Lab / Micro Data Result Diagrams: 08/06/22 05:43 08/06/22 05:43 Charges/Coding Visit Charges Inpatient E&M: 38145 Subs Hosp L2 08/15/22 1543 <Electronically signed by Kristyn Wallace DO> Kristyn Wallace DO Cosigner Signature (if applicable): CC: ~ Signed [facility] Work Phone: 1(350) 331-509503-30-[address] Wallace [facility] August 15, 2022 11:58am Note Date/Time August 14, 2022 10: 48pm [facility] Medical Records Department [address] [place] [address] Progress Note 08/14/222246 MR#: [id number] Acct: [id number] Name: ROMEO GONZALES Rep #:[id number] : 1985 36 From: Kristyn Wallace DO PCP: Dr. Ander Nicholson, Status:ADM IN Location: [id number] Subjective Subjective Afebrile VSS Maintaining appropriate oxygen saturation on RA Oral intake is good Discussed with nursing - no problems that need addressed Reviewed the PT/OT/ST notes Medication list reviewed. Romeo's only complaint continues to be some stiffness in his neck and some neck discomfort. He continues to hold his head side bent to the right and mildly rotated to the right. It is not as bad as it was at admission. He denies lightheadedness, chest pain, shortness of breath, cough, abdominal pain, dysuria, calf pain and he is sleeping well. Objective Data Objective Data Vital Signs: Vital Signs Temp Pulse Resp BP Pulse Ox O2 Del Method 98.0 F 74 17 128/79 H 97 Room Air 08/14/22 08:02 08/14/22 08:02 08/14/22 08:02 08/14/22 08:02 08/14/22 08:02 08/14/22 08:02 Oxygen Delivery Method Room Air Weight: 212 lb 8.41 oz Body Mass Index (BMI) 34.1 Intake & Output: Intake and Output for Last 24 Hours 08/12/22 08/13/22 08/14/22 23:59 23:59 23:59 Intake Total 1710 / 1710 50 / 50 960 / 960 Output Total 300 / 300 450 / 450 450 / 450 Balance 1410 / 1410 -400 / -400 510 / 510 Lab / Micro Data Result Diagrams: 08/06/22 05:43 08/06/22 05:43 Physical Exam Const alert General Appearance: cooperative Resp clear to auscultation bilaterally Cardio regular rate, regular rhythm, no murmurs and no gallops GI normal to inspection, nondistended, normoactive bowel sounds, soft to palpation and non-tender Extremity no calf tenderness General Extremity: Negative for edema Skin General Skin Exam: no breakdown Rashes: no rashes Wound Narrative: The sutures have been removed and the incision remains intact with no erythema, no swelling and no purulent discharge. Assessment & Plan Assessment/Plan (1) Debility: (2) Status post craniectomy: (3) Generalized weakness: (4) Hemiparesis affecting right side as late effect of cerebrovascular accident: (5) Urinary incontinence: (6) Fecal incontinence: (7) Cognitive dysfunction due to stroke: (8) Kaylene-inattention: (9) Aphasia as late effect of stroke: (10) Hyperlipidemia: (11) DVT (deep venous thrombosis): (12) Current use of retirement anticoagulation: (13) Hypertension: (14) Torticollis, acquired: PLAN: Plan 1. Continue therapy 2. Change baclofen to 5 mg nightly for muscle spasms 3. Prescribe arthritis compounded formula containing baclofen, lidocaine and Voltaren 3 times daily to the trapezius muscles and in the posterior cervical area to help with muscle spasm/pain/torticollis. I am okay with the baclofen atnight but it makes him sleepy during the day and I think it affects his cognition. Would like to be able to control the torticollis/muscle spasm/pain with topical medications only. We are far enough away from the intracerebral hemorrhage that he should be able to tolerate a topical nonsteroidal anti-inflammatory without adverse side effects. Charges/Coding Visit Charges Inpatient E&M: 82871 [facility] Hosp L1 08/15/22 1158 <Electronically signed by Kristyn Wallace DO> Kristyn Wallace DO Cosigner Signature (if applicable): CC: ~ Signed [facility] Work Phone: 1(673) 600-330503-30-[address] Wallace [facility] August 15, 2022 11:52am Note Date/Time August 14, 2022 1:1 6pm [facility] Medical Records Department [address] [place] [address] Progress Note 08/14/22 1313 MR#: [id number] Acct: [id number] Name: ROMEO GONZALES Rep #:[id number] : 1985 36 From: Kristyn Wallace DO PCP: Dr. Ander Nicholson DO Status:ADM IN Location: [id number] Progress Note This is a late entry note from 08/12/22......The note was documented on the wrongchart. Romeo has a low-grade increase in temperature occasionally and it usually occursin the evenings. He has no evidence of infection. Blood pressure is well controlled. Currently he is only taking carvedilol 3.125mg BID for HTN. Family asked if is able to come off this medication. Will DC while he is in rehab so that I can observe his BP's daily and restart if the BP shoots up. Romeo's only complaint today is neck pain/spasm. Denies shortness of breath, chest pain, lightheadedness, racing heart, painful urination, nausea/vomiting/abdominal pain and calf pain. Physical Exam Const alert Constitutional Narrative: Romeo is pleasant and smiling. He is always cooperative. Neck Neck Narrative: He has trapezius muscle spasms, R>L. He has decrease ROM with cervical rotationL and SB left. The head is side bent to the right although not as much as it was at admission. He has some tenderness to palpation of the R trap. Resp clear to auscultation bilaterally Cardio regular rate, regular rhythm, no murmurs, no rub and no gallops GI normal to inspection, nondistended, normoactive bowel sounds, soft to palpation and non-tender GI Narrative: No guarding with palpation. No suprapubic pain with palpation. Extremity no calf tenderness and no pedal edema Skin General Skin Exam: no breakdown Rashes: no rashes Wound Narrative: The cranial incision is intact with no significant swelling, no verena-incisional erythema and no purulent discharge. 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 Continue therapy 2. Add baclofen 5 mg BID for muscle spasms 3. Discuss a topical cream containing muscle relaxers only with the retail pharmacist in the a.m. Visit Charges Inpatient E&M: 82610 Subs Hosp L2 08/15/22 1152 <Electronically signed by Kristyn Wallace DO> Kristyn Wallace DO Cosigner Signature (if applicable): CC: ~ Signed [facility] Work Phone: 1(866) 508-214203-27-[address] Wallace [facility] August 12, 2022 10:56am Note Date/Time August 08, 2022 12: 25pm [facility] Medical Records Department [address] [place] [address] Progress Note 08/08/22 1225 MR#: [id number] Acct: [id number] Name: ROMEO GONZALES Rep #:[id number] : 1985 36 From: Kristyn Wallace DO PCP: Dr. Ander Nicholson, DO Status:ADM IN Location: [place] [address] Subjective Subjective Romeo was seen on team rounds today. His family was present in the room. Afebrile VSS-blood pressure is within goal. Maintaining appropriate oxygen saturation on RA Oral intake is good Discussed with nursing - no problems that need addressed Reviewed the PT/OT/ST notes Medication list reviewed. Romeo is complaining of some pain in the neck......torticollis is improving but,he still has some rotation to the R and side bending to the R. PT is utilizing massage. Romeo denies shortness of breath, chest pain, extremity pain, dysuria and lightheadedness. Objective Data Objective Data Vital Signs: Vital Signs Temp Pulse Resp BP Pulse Ox O2 Del Method 98.5 F 84 16 116/81 H 96 Room Air 08/08/22 07:32 08/08/22 07:32 08/08/22 07:32 08/08/22 07:32 08/08/22 07:32 08/08/22 07:32 Oxygen Delivery Method Room Air Weight: 211 lb 13.828 oz Body Mass Index (BMI) 34.0 Intake & Output: Intake and Output for Last 24 Hours 08/06/22 08/07/22 08/08/22 23:59 23:59 23:59 Intake Total 1590 / 1590 980 / 980 480 / 480 Output Total 250 / 250 400 / 400 350 / 350 Balance 1340 / 1340 580 / 580 130 / 130 Lab / Micro Data Result Diagrams: 08/06/22 05:43 08/06/22 05:43 Physical Exam Const alert and no apparent distress General Appearance: cooperative HEENT normocephalic Eyes PERRL and EOMs intact bilaterally Neck Neck Narrative: He has torticollis of the neck and his head is rotated and side bent to the R. Resp normal respiratory effort, normal air movement and clear to auscultation bilaterally Effort and Inspection: Negative for tachypneic Cardio regular rate, regular rhythm, no murmurs, no rub and no gallops Cardio Narrative: No ectopy GI normal to inspection, nondistended, normoactive bowel sounds, soft to palpation and non-tender GI Narrative: No guarding with palpation Extremity no calf tenderness General Extremity: Negative for edema Skin Skin Narrative: The incision in the left side of the skull is intact with no discharge, no verena-incisional erythema and no significant increased warmth to touch. There is a small amount of edema around the incision. General Skin Exam: Negative for no breakdown Rashes: no rashes Assessment & Plan Assessment/Plan (1) Debility: (2) Status post craniectomy: (3) Generalized weakness: (4) Hemiparesis affecting right side as late effect of cerebrovascular accident: (5) Urinary incontinence: (6) Fecal incontinence: (7) Cognitive dysfunction due to stroke: (8) Kaylene-inattention: (9) Aphasia as late effect of stroke: (10) Hyperlipidemia: (11) DVT (deep venous thrombosis): (12) Current use of retirement anticoagulation: (13) Hypertension: (14) Torticollis, acquired: PLAN: Improving with massage. does not look to be in that much discomfort. Hasonly taking one dose of Oxy since admission and that was on the 21rst. PLAN: Plan 1. Continue therapy 2. Atrovent nasal spray has been restarted and he has less rhinorrhea. He is not coughing. 3. No changes to the drug regimen at this time. 4. Recheck LFTs and a lipid panel prior to discharge. Charges/Coding Visit Charges Inpatient E&M: 07206 Subs Hosp L2 08/12/22 1056 <Electronically signed by Kristyn Wallace DO> Kristyn Wallace DO Cosigner Signature (if applicable): CC: ~ Signed [facility] Work Phone: 1(260) [phone] History and physical note Author Dr. Wallace [facility] August 12, 2022 10:47am Note Date/Time August 06, 2022 10: 07am [facility] Medical Records Department [address] [place] [address] History & Physical Exam 08/06/22 1005 MR#: [id number] Acct: [id number] Name: ROMEO GONZALES Rep #:[id number] : 1985 36 From: Kristyn Wallace DO PCP: Dr. Ander Nicholson, DO Status:ADM IN Location: [place] [address] HPI - General General Date of Admission: 08/05/22 Date of Service: 08/06/22 Chief Complaint: post stroke debility HPI Narrative ROMEO GONZALES, is a 36 YO M well known to me from a recent admission to acuterehab following a hemorrhagic CVA/SAH due to a ruptured L MCA aneurysm. Romeo returned to [facility] and had an elective surgery on 08/01/2022 to replace the bone flap and remove the PEG tube. Romeo's past medical history is significant for hypertension, obesity, hyperlipidemia, incontinence of urine and stool, right upper extremity DVT, chronic anticoagulation with Eliquis for DVT and aphasia. Post op course was unremarkable but, Romeo had declined since being discharged from rehab on 07/19/22. He had been ambulating and he was no longer doing that. His family did not feel that they could care for him at home without further PT/OT. They requested he be transferred from [facility] to [facility] acute rehab and PT/OT at [facility] was in agreement. Romeo was transferred to the acute inpt rehab unit at [facility] on 08/05/22 for 3 hours of therapy daily to restore function at his level prior to the recent cranioplasty to replace the bone flap. Lab at DC from [facility] showed a normal white blood cell count and hemoglobin of13.4. Platelets were within normal limits. Sodium was 136 and the potassium was 4.1. Creatinine was 0.65 with a BUN of 14. LFTs were normal. Eliquis was restarted prior to discharge. All DC paperwork from [facility] was personally reviewed, including the therapy notes. All lab drawn this morning was personally reviewed. White blood cell countand platelets are within normal limits and the hemoglobin is 13. Sodium was 136and the potassium was 4.1. BUN is 15 with a creatinine of 0.92. Phosphorus andmagnesium are within normal limits. LFTs show an elevated ALT at 72 with a normal AST of 26 and an elevated alkaline phosphatase of 148. Interesting that the ALT and AP were elevated when they were normal at [facility] 1 day prior? [facility] Medical History (Updated 08/12/22 @ 10:[address] Kristyn Wallace DO) Aphasia as late effect of stroke Arterial ischemic stroke, MCA (middle cerebral artery), left, acute Current use of retirement anticoagulation Debility Dissection of cerebral artery DVT (deep venous thrombosis) Fecal incontinence Hemiparesis affecting right side as late effect of cerebrovascular accident Hyperlipidemia Hypertension Ischemic cerebrovascular accident (CVA) Obesity (BMI 30-39.9) Stroke/cerebrovascular accident Subarachnoid hemorrhage Urinary incontinence Home Medications acetaminophen 500 mg tablet (Acetaminophen Pain Relief) 500 mg PO Q6H PRN fever or pain #90 tabs 07/18/22 [Rx Last Taken Unknown] sennosides 8.6 mg-docusate sodium 50 mg tablet (Laxative Stool Softener With Senna) 1 tab-cap PO BID #60 tabs 07/18/22 [Rx Last Taken Unknown] sodium chloride 1,000 mg soluble tablet 1,000 mg PO DAILY #30 tabs 07/18/22 [Rx Last Taken Unknown] acetaminophen 325 mg tablet (Tylenol) 650 mg PO Q4H PRN Pain 08/05/22 [History Last Taken Unknown] apixaban 5 mg tablet 5 mg PO BID Blood clots 08/05/22 [History Last Taken Unknown] atorvastatin 20 mg tablet 20 mg PO QHS cholesterol 08/05/22 [History Last Taken Unknown] carvedilol 3.125 mg tablet 3.125 mg PO BIDCM blood pressure 08/05/22 [History Last Taken Unknown] ipratropium bromide 42 mcg (0.06 %) nasal spray 2 spray NASAL BID airway 08/05/22 [History Last Taken Unknown] menthol 0.44 %-zinc oxide 20.6 % topical ointment (Calmoseptine) 1 applic topical BID redness 08/05/22 [History Last Taken Unknown] menthol-zinc oxide 0.5 %-20.65 % topical ointment (DermaSeptin) See Rx Instructions .ROUTE .COMPLEX redness 08/05/22 [History Last Taken Unknown] oxycodone-acetaminophen 5 mg-325 mg tablet 1 tab PO Q6H PRN Pain 08/05/22 [History Last Taken Unknown] Allergy/AdvReac Type Severity Reaction Status Date / Time No Known Allergies Allergy Verified 05/22/22 08:08 no significant family history Surgical History (Updated 08/12/22 @ 10:[address] Kristyn Wallace DO) Status post aneurysm repair Status post craniectomy Status post craniotomy Social History (Updated 08/12/22 @ 10:[address] Kristyn Wallace DO) adopted: No household members: family housing: house number of children: 0 current occupational status: disabled Smoking Status: Never smoker alcohol intake: never substance use type: does not use ROS Review of Systems ROS Unobtainable: other Details: Limited due to aphasia Constitutional Constitutional: Reports weakness; Denies anorexia, chills or fever(s) Eyes Eyes: Denies change in vision, double vision or eye pain ENT HEENT: Reports nasal discharge; Denies headache(s) Cardiovascular Cardiovascular: Denies chest pain Respiratory/Chest Respiratory/Chest: Denies cough or shortness of breath at rest Gastrointestinal Gastrointestinal: Reports other Details: Chronic fecal incontinence ; Denies abdominal pain, nausea or vomiting Musculoskeletal Musculoskeletal: Reports neck pain Integumentary Integumentary: Reports other Details: He has an incision Left cranium from the craniectomy to replace the bone flap on 08/01/22 ; Denies jaundice or rash Neurologic Neurologic: Reports abnormal speech and weakness; Denies headache(s) or seizures Psychiatric Psychiatric: Reports other; Denies anxiety or depression Endocrine Endocrinology: Denies change in body appearance Hematologic/Lymphatic Hematologic/Lymphatic: Reports easy bleeding and easy bruising Vital Signs Vital Signs Vital Signs: 08/05/22 16:50 08/05/22 18:56 08/05/22 19:28 Temperature 98.9 F 98.8 F Temperature Source Oral Temporal Pulse Rate 88 84 Respiratory Rate 16 16 Respiratory Effort Normal Non-Labored Respiratory Depth Normal Respiratory Pattern Normal Blood Pressure 130/91 H 131/84 H Blood Pressure Mean 104 99 Blood Pressure Source Monitor Monitor Blood Pressure Position Semi-Fowlers Semi-Fowlers Blood Pressure Location Left Arm Left Arm Pulse Ox 99 98 Oxygen Delivery Method Room Air Room Air Room Air 08/05/22 21:45 08/06/22 01:27 08/06/22 09:50 Temperature 98.5 F Temperature Source Temporal Pulse Rate 86 Respiratory Rate 16 Respiratory Effort Normal Non-Labored Respiratory Depth Respiratory Pattern Blood Pressure 128/88 H Blood Pressure Mean 101 Blood Pressure Source Blood Pressure Position Blood Pressure Location Pulse Ox 98 98 Oxygen Delivery Method Room Air Room Air Indicators for Scoring Admitted with or Primary Diagnosis of CVA/Stroke: No (Admitted for debility following left craniectomy to replace bone flap.) Hx of CVA/Stroke: Yes Modified Price Score MRS Score at time of Evaluation: 4-Moderate/severe disability NIHSS NIHSS 1a. Level of Consciousness: Alert; keenly responsive 1b. LOC Questions: Answers BOTH questions correctly. 1c. LOC Commands: Performs both tasks correctly. 2. Best Gaze: Normal 3. Visual: No visual loss 4. Facial Palsy: Minor paralysis (flattened nasolabial fold, asymmetry on smiling) 5a. Left Arm: No drift; arm holds 90 (or 45) degrees for full 10 seconds 5b. Right Arm: No effort against gravity; arm falls 6a. Left Leg: No drift; leg holds 30-degree position for full 5 seconds 6b. Right Leg: Some effort against gravity; 7. Limb Ataxia: Absent 8. Sensory: Uohu-eb-xiusfwyf sensory loss; 9. Best Language: [id number]-lr-eaxhyqoh aphasia; 10. Dysarthria: Normal 11. Extinction and Inattention: Visual, tactile, auditory, spatial, or personal inattention Total: 9 Stroke Questions Stroke Team Activated: No Physical Exam Const alert and no apparent distress Constitutional Narrative: Lying in bed and his father is at the bedside and he is able to answer some of my questions when Romeo is not. euthymic, pleasant, smiling and tearful. General Appearance: cooperative and well developed HEENT normocephalic HEENT Narrative: There is an incision on the left side of the skull from the recent craniectomy to replace the bone flap. Having rhinorrhea........[facility] at [facility] and Romeo has seasonal allergies. Mouth: dry mucous membranes Eyes PERRL and EOMs intact bilaterally Eyes Narrative: The conjunctiva is clear and he has no discharge from the eyes. There is no mattering of the eyelids. Neck Neck Narrative: He has torticollis of the neck and his head is rotated and side bent to the R. General: trachea midline; Negative for lymphadenopathy Resp normal respiratory effort, normal air movement and clear to auscultation bilaterally Effort and Inspection: Negative for tachypneic Cardio regular rate, regular rhythm, S1 normal heart sound, S2 normal heart sound, no murmurs, no rub and no gallops Cardio Narrative: No ectopy GI normal to inspection, nondistended, normoactive bowel sounds, soft to palpation and non-tender GI Narrative: No guarding with palpation Extremity no calf tenderness General Extremity: Negative for edema Skin No no jaundice Skin Narrative: The incision in the left side of the skull is intact with no discharge, no verena-incisional erythema and no significant increased warmth to touch. There is a small amount of edema around the incision. General Skin Exam: Negative for no breakdown Rashes: no rashes Neuro Neuro Narrative: Mild right facial droop. Persistent aphasia but more verbal than at his initialpresentation to acute rehab. He is appropriate. Flaccid right upper extremity and right lower extremity with some effort against gravity. Sensory loss on theright side and still with some right-sided neglect. No visual loss. PERRLA andthe EOMI Speech: speech abnormal Psych cooperative and denies suicidal ideation Appearance: appropriate Attitude: No agitated Mood & Affect: Negative for depressed, anxious or flat affect Results Lab / Micro Data Result Diagrams: 08/06/22 05:43 08/06/22 05:43 Labs: Laboratory Results - last 24 hr 08/06/22 05:43: WBC 7.8, RBC 4.59 L, Hgb 13.0, Hct 40.3, MCV 87.8, MCH 28.3, MCHC 32.3, RDW Std Deviation 38.9, RDW Coeff of Jordi 12.1, Plt Count 324, MPV 8.4, Immature Gran % (Auto) 0.300, Neut % (Auto) 60.9, Lymph % (Auto) 21.1, [place]% (Auto) 13.4 H, Eos % (Auto) 3.7, Baso % (Auto) 0.6, Absolute Neuts (auto) 4.8,Absolute Lymphs (auto) 1.65, Nucleated RBC % 0 08/06/22 05:43: Sodium 136, Potassium 4.1, Chloride 100, Carbon Dioxide 30.0, Anion Gap 6, BUN 15, Creatinine 0.92, Est GFR (MDRD) Af Amer 118, Est GFR (MDRD) Non- Af 98, BUN/Creatinine Ratio 16.3, Glucose 106, Calcium 9.2, Phosphorus 4.8, Magnesium 2.2, Total Bilirubin 0.40, AST 26, ALT 72 H, Alkaline Phosphatase 148 H, Total Protein 7.2, Albumin 3.1 L, Globulin 4.1, Albumin/Globulin Ratio 0.8 L Assessment & Plan Assessment/Plan (1) Debility: (2) Status post craniectomy: (3) Generalized weakness: (4) Hemiparesis affecting right side as late effect of cerebrovascular accident: (5) Urinary incontinence: (6) Fecal incontinence: (7) Cognitive dysfunction due to stroke: (8) Kaylene-inattention: (9) Aphasia as late effect of stroke: (10) Hyperlipidemia: (11) DVT (deep venous thrombosis): (12) Current use of retirement anticoagulation: (13) Hypertension: (14) Torticollis, acquired: PLAN: Plan PLAN PT for gait stability OT for ADL's ST for evaluation Analgesics as needed Bowel protocol Fall precautions Assess for Anxiety/Depression GI prophylaxis not necessary at this time. He has no history of peptic ulcer disease and he denies nausea, epigastric pain, vomiting. DVT prophylaxis -he is currently on Eliquis 5 mg p.o. twice daily for treatment of a right upper extremity deep vein thrombosis of the brachial vein. Follow up with Dr. Ander Nicholson and neurosurgery at [facility] following DC from [facility] Re[facility] AM lab including CMP, CBC, Mag and Phos-personally reviewed Charges/Coding Visit Charges Inpatient E&M: 50972 Init Hosp L3 08/12/22 1047 <Electronically signed by Kristyn Wallace DO> Cosigner Signature (if applicable): CC: Dr. Ander Nicholson DO; Dr. Kristyn Wallace DO~ Signed [facility] Work Phone: [phone] 972-847903-23-2023 History and physical note Author Dr. Wallace [facility] August 08, 2022 6:22pm Note Date/Time August 06, 2022 10: 08am [facility] Medical Records Department [address] [place] [address] Post Admission Physician Mega 08/06/22 1007 MR#: [id number] Acct: [id number] Name: ROMEO GONZALES Rep #:[id number] : 1985 36 From: Kristyn Wallace DO PCP: Dr. Ander Nicholson, DO Status:[facility]M [id number] Information Primary Diagnosis:: Post stroke debility. Status Changes from Prescreening?: No changes Identified Actual Problem List:: Cognitve Impr/Memory Loss, Bladder Incontinence, Bowel, Incontinence, Mobility Impaired, Self Care Deficit, Ineffective Communication, BP, Hypertension and Alteration-Leisure Activ. Potential Problem List:: DVT, Bleeding, Infection, UTI, Aspiration, Falls, Skin Integrity and Depression Risk of Complications DVT: ABNER Hose and Sequential Compression Device Bleeding: Monitor Lab Values, Nursing to Teach Precautions for anti-coagulation therapy., Wound, if applicable, to be assessed every shift. and Stroke patients assessed for lethargy or change in status. Infection: Clinical Staff to Monitor for S/S of infection: and S/S of infection include fever, redness, warmth, etc. Urinary Tract Infection: Monitor for frequency, burning, discomfort, or incontinence. and Nursing will obtain urine sample for urinalysis and C&S when ordered. Aspiration: Clinical staff will monitor for coughing, drooling, congestion., Speech will evaluate swallowing and dsyphasia. and Nursing will monitor patient swallowing during meals. Falls: Patient will be evaluated for Fall Precautions and Patient will be placedon Fall Precautions as indicated per protocol. Skin Breakdown: Nursing will assess skin daily using assessment tool. and Nursing will place on Skin Breakdown Precautions as indicated. Pain: Clinical staff will assess patient's pain level per protocol., Medicationswill be given, if needed, and the pain level reassessed. and Other methods: Massage, distraction, decrease stimulus, etc. used PRN. Plan of Care Patient requires physician specializing in physical medicine and rehab oversightto provide close medical supervision of rehab issues including: Pain Management,Sleep Problems, Bowel and Bladder, Medical and co-morbidity Management, DVT prophylaxis, Rehabilitation Leadership and Coordination of treatment team Patient needs Physical Therapy: For a minimum of 1 hour and At least 5 out of 7 days Patient needs Physical Therapy to improve:: Mobility, Strengthening, Transfers, Stretching, ROM, Endurance, Stairs, Gait and Balance Patient needs Occupational Therapy: For a minimum of 1 hour and At least 5 out of 7 days Patient needs Occupational Therapy to improve ADL's incl.: Eating, Grooming, Bathing, Dressing, Toileting, Toilet transfers, Community Reintegration, Higher functioning activities, Household tasks, Adaptive Equipment, Splinting and Otheractivities as determined Patient requires speech therapy: For a minimum of 1 hour and At least 5 out of 7days Patient requires speech therapy for: Swallowing, Cognition, Language Skills and Compensatory Strategies Patient requires 24/7 Rehabilitation Nursing for: Pain Issues, Identifying and preventing risk factors, Monitoring and reporting current medical conditions, Assisting with ambulation, transfer, and all ADL's, Teaching patients about disease process and medications, Family teaching, Providing safe environment, Bowel and Bladder Issues, Skin integrity and Medication Management Patient needs Screening Specialist/ Case Management for: Discharge Planning, Arranging Home Equipment or Services and Family Interventions Patient needs Dietary and Nutrition Services for: Adequate Nutrition, Nutritional Supplements and Nutritional Education Goals Patient will remain: free from falls Patient will perform bed mobility at: MOD I level of assist. Patient will complete transfers from bed to chair at: - (Contact-guard assist/standby assist) Patient will ambulate: 100 feet (With least restrictive device at contact-guard assist on various surfaces.) Patient will complete upper body dressing at: - (Minimal assistance) Patient will complete lower body dressing at: - (Moderate assistance with adaptive equipment as necessary.) Patient will complete toileting at: - (He is incontinent of both stool and urineand this is likely not going to change) Patient will perform bathing at: - (min assist) Patient will complete grooming at: - (Supervision/set up) Patient will achieve: - (1 curb step with least restrictive device at min assist) Patient will have pain level of: of 3 or less Patient's skin will: remain intact Patient will receive: adequate nutrition. Discharge Planning Pt Prognosis for Sig. Practical Improv. w/in Reasonable Time: Good Estimated Length of stay (days): 21 Anticipated D/C Destination: Home w/ family or friends Was Preadmission Assessment Accurate?: Yes 08/08/221821 <Electronically signed by Kristyn Wallace DO> Cosigner Signature (if applicable): CC: ~ Signed [facility] Work Phone: [phone] 765-432603-20-2023 Miscellaneous Notes* Plan of Care - Ann Finn RN - 08/05/2022 2:29 PM EDT Problem: OT - Dressing Goal: Upper Body Dressing Description: Pt will complete UE dressing task Edge of bed with supervision for improved ability tocomplete self-care activities. Outcome: Adequate for Discharge Goal: Lower Body Dressing Description: Pt will complete LE dressing tasks with supervision for improved ability to complete self-care activities. Outcome: Adequate for Discharge Problem: OT - Dressing Goal: Upper Body Dressing Description: Pt will complete UE dressing task Edge of bed with supervision for improved ability tocomplete self-care activities. Outcome: Adequate for Discharge Goal: Lower Body Dressing Description: Pt will complete LE dressing tasks with supervision for improved ability to complete self-care activities. Outcome: Adequate for Discharge Problem: OT - Cognition Goal: Cognition simple ADL Description: Pt will demonstrate improved cognition, completing simple ADL task for 8 minutes with no cues required to maintain attention, for improved safety and success at discharge destination. Outcome: Adequate for Discharge Problem: OT - Balance Goal: Balance - Standing Description: Pt will perform 6-8 minutes of functional ADL task in standing with a balance level ofcontact guard to promote safety and improved balance required for self-care activities. Outcome: Adequate for Discharge Problem: OT - Transfers Goal: Transfers Toilet/Bedside Commode Description: Pt will transfer to/from toilet/BSC with standby assistance for improved ability to safely complete ADLs. Outcome: Adequate for Discharge Problem: PT - Mobility Goal: Ambulation Description: Pt will ambulate 45 feet with hemiwalker with minimal assistance to improve ability tonavigate home environment. Outcome: Adequate for Discharge Problem: PT - Transfers Goal: Supine <-> Sit Description: Pt will perform bed mobility with HOB raised and use of rail with supervision in orderto improve functional mobility and safety. Outcome: Adequate for Discharge Goal: Sit <-> Stand Description: Pt will perform sit to/from stand transfers with standby assistance with hemiwalker inorder to improve functional mobility and safety. Outcome: Adequate for Discharge Problem: BEADING SAWYER - Language Goal: Command Following Description: Patient will complete simple 1-step commands (minimum of x10) to 80% success with max cues as needed in order to improve direction following for functional gains in ability to participate more independently in care. Outcome: Adequate for Discharge Goal: Yes/No Response Description: Patient will answer y/n questions (minimum of x15) related to current situation/environment, to 100% success with min cues, after 2-3 sessions in order to improve ability to answer medical questions/questions related to care. Outcome: Adequate for Discharge Goal: Names Basic Objects/Pictures Description: Patient will name basic objects/pictures with 80% accuracy, across 1-2 session(s) given min assist to improve word-finding and functional communication. Outcome: Adequate for Discharge * Nursing Notes - Ann Finn RN - 08/05/2022 1:54 PM EDT Patient discharged. AVS reviewed with patient and family at bedside. PIV removed per policy. All patient belongings packed and with patient. Family to transport patient to [facility] facility. AVS DELORIS and DC summary faxed and paper copies provided to family. Report called to accepting facility and all questions answered. Nursing staff assisted patient to car. * Nursing Notes - Aftab Gasca RN - 08/04/2022 7:10 PM EDT Brayan Jay MD 8B RM [address] Patient has a temp of 100.7 Aftab RN #[id number] Aftab Gasca RN * Plan of Care - KARIN Ku - 08/03/2022 11:48 AM EDT Problem: BEADING SAWYER - Language Goal: Command Following Description: Patient will complete simple 1-step commands (minimum of x10) to 80% success with max cues as needed in order to improve direction following for functional gains in ability to participate more independently in care. Outcome: Ongoing Goal: Yes/No Response Description: Patient will answer y/n questions (minimum of x15) related to current situation/environment, to 100% success with min cues, after 2-3 sessions in order to improve ability to answer medical questions/questions related to care. Outcome: Ongoing Goal: Names Basic Objects/Pictures Description: Patient will name basic objects/pictures with 80% accuracy, across 1-2 session(s) given min assist to improve word-finding and functional communication. Outcome: Ongoing * Plan of Care - Kiara Ariza PT - 08/02/2022 9:42 AM EDT Problem: PT - Mobility Goal: Ambulation Description: Pt will ambulate 45 feet with hemiwalker with minimal assistance to improve ability tonavigate home environment. Outcome: Ongoing Problem: PT - Transfers Goal: Supine <-> Sit Description: Pt will perform bed mobility with HOB raised and use of rail with supervision in orderto improve functional mobility and safety. Outcome: Ongoing Goal: Sit <-> Stand Description: Pt will perform sit to/from stand transfers with standby assistance with hemiwalker inorder to improve functional mobility and safety. Outcome: Ongoing * Plan of Care - Natalia Khalil OT - 08/02/2022 8:50 AM EDT Problem: OT - Dressing Goal: Upper Body Dressing Description: Pt will complete UE dressing task Edge of bed with supervision for improved ability tocomplete self-care activities. Outcome: Ongoing Goal: Lower Body Dressing Description: Pt will complete LE dressing tasks with supervision for improved ability to complete self-care activities. Outcome: Ongoing Problem: OT - Cognition Goal: Cognition simple ADL Description: Pt will demonstrate improved cognition, completing simple ADL task for 8 minutes with no cues required to maintain attention, for improved safety and success at discharge destination. Outcome: Ongoing Problem: OT - Balance Goal: Balance - Standing Description: Pt will perform 6-8 minutes of functional ADL task in standing with a balance level ofcontact guard to promote safety and improved balance required for self-care activities. Outcome: Ongoing Problem: OT - Transfers Goal: Transfers Toilet/Bedside Commode Description: Pt will transfer to/from toilet/BSC with standby assistance for improved ability to safely complete ADLs. Outcome: Ongoing * Plan of Care - Chapo Xavier RN - 08/02/2022 4:36 AM EDT Problem: Patient Care Overview Goal: Plan of Care Review Outcome: Ongoing Goal: Individualization & Mutuality Outcome: Ongoing Goal: Discharge Needs Assessment Outcome: Ongoing * Nursing Notes - Britni Craig RN - 08/01/2022 6:54 PM EDT [facility] admission to [facility], from OR a dual RN initial assessment of skin condition was performed by WILL Roche and Doron Seaman Rn. Skin Assessment: Skin not within defined limits. - Pressure Injury suspected: Yes Nate Score: 12 LDA Added:Yes Britni Craig RN * Op Note - Eyad Mujica MD, PhD - 08/01/2022 11:09 AM EDT Operative Report DATE PERFORMED: 08/01/2022 PREOPERATIVE DIAGNOSIS: Left skull defect. POSTOPERATIVE DIAGNOSIS: Left skull defect. PROCEDURE: Autologous left cranioplasty measuring 15 x 17 cm. SURGEON(S): Eyad Mujica MD, PhD. ANESTHESIA: General anesthesia. COMPLICATIONS: None. SPECIMEN: None. Dr. Taj Osorio was available should I have needed his help. BRIEF CLINICAL HISTORY: Mr. Gonzales is an unfortunate 36-year-old man who suffered a malignant left MCA infarction after attempted aneurysm treatment approximately two months ago. He has made a fair neurologic recovery and other than some mild confusion and right hand weakness is doing fairly well. His edema has resolved and he comes back now for cranioplasty. PROCEDURE IN DETAIL: After obtaining written informed consent, the patient was brought to the operating room and positioned supine on the OR table. All pressure points were padded. After induction of general anesthesia, his head was shaved with clippers and the left shoulder bump placed. His head was placed into a horseshoe. The skin on the left side of the scalp was then shaved, cleaned prepped and draped in usual fashion. A time-out was performed. I retrieved the patient's bone flap from the freezer and spent 20 minutes scrubbing it. There were actually two pieces. I scrubbed in chlorhexidine in a sterile fashion and scraped off all the soft tissue. I then placed it into the back table in a basin of iodine. We turned our attention to the skull defect. The prior incision was opened using scissors to spread the skin and cut the galea. These were two C-shaped incisions first with a typical aneurysm approach and then the second that extended more posteriorly. The skin and muscle elevated as a single flap. There was an excellent plane between the galea and the underlying dura. Hemostasis obtained with bipolar electrocautery and FloSeal. The wound was copiously irrigated. Satisfied with the hemostasis, the bone flap was reassembled using titanium plates and screws and then reattached to the skull. It fit in quite nicely. There really was no significant brain edema or need for brain relaxation techniques. The wound was again irrigated. A 10-[place] PVC drain was tunneled through a separate stab incision and placed underneath the temporalis muscle. The muscle was then closed with a layer of Vicryl stitches. The galea was closed with a layer of Vicryl stitches and skin closed with mariano. A sterile dressing was applied. The patient's PEG tube was removed. I had discussed this with the patient and his family, as well as Dr. Elena who had placed original tube and since the patient no longer needs it seemed like a good time to take it out while he was still asleep. A sterile dressing was applied. Anesthesia was reversed, and Mr. Gonzales was extubated without difficulty. He was transferred to recovery in satisfactory condition. All sponge and needle counts were correct. 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] PROCEDURE PERFORMED Procedure(s) (LRB): LEFT CRANIOPLASTY (Left) PRIMARY CLOSURE Yes INTRAOPERATIVE FINDINGS 15 x 17 cm left skull defect SURGEON Surgeon(s) and Role: * Eyad Mujica MD, PhD - Primary ANESTHESIOLOGIST Anesthesiologist: Jorge Starr MD BEAD FORMING MACHINE OPERATOR: Nate Peck APRN-BEAD FORMING MACHINE OPERATOR Drum Drier: VIKTORIA Johnson SURGICAL STAFF Industrial Mechanic: Alicia Nassar RN; Nate Pearl RN Scrub Person: Alecia Shields Resident Assisting: Harsha Persaud MD COMPLICATIONS None ESTIMATED BLOOD LOSS 200 ml SPECIMENS No specimen sent * No specimens in log * Eyad Mujica MD, PhD August 01, 2022 10:21 AM * Certification - Pierre Cabrales MD - 07/31/2022 8:23 PM EDT I certify that this patient requires inpatient services at this time. I anticipate the expected length of stay will include at least two midnights. Current treatment plan includes cranioplasty. Plans for post hospitalization care will be discharge to inpatient rehab facility. [facility]* Plan of Care - Ann Finn RN - 08/05/2022 2:29 PM EDT Problem: OT - Dressing Goal: Upper Body Dressing Description: Pt will complete UE dressing task Edge of bed with supervision for improved ability tocomplete self-care activities. Outcome: Adequate for Discharge Goal: Lower Body Dressing Description: Pt will complete LE dressing tasks with supervision for improved ability to complete self-care activities. Outcome: Adequate for Discharge Problem: OT - Dressing Goal: Upper Body Dressing Description: Pt will complete UE dressing task Edge of bed with supervision for improved ability tocomplete self-care activities. Outcome: Adequate for Discharge Goal: Lower Body Dressing Description: Pt will complete LE dressing tasks with supervision for improved ability to complete self-care activities. Outcome: Adequate for Discharge Problem: OT - Cognition Goal: Cognition simple ADL Description: Pt will demonstrate improved cognition, completing simple ADL task for 8 minutes with no cues required to maintain attention, for improved safety and success at discharge destination. Outcome: Adequate for Discharge Problem: OT - Balance Goal: Balance - Standing Description: Pt will perform 6-8 minutes of functional ADL task in standing with a balance level ofcontact guard to promote safety and improved balance required for self-care activities. Outcome: Adequate for Discharge Problem: OT - Transfers Goal: Transfers Toilet/Bedside Commode Description: Pt will transfer to/from toilet/BSC with standby assistance for improved ability to safely complete ADLs. Outcome: Adequate for Discharge Problem: PT - Mobility Goal: Ambulation Description: Pt will ambulate 45 feet with hemiwalker with minimal assistance to improve ability tonavigate home environment. Outcome: Adequate for Discharge Problem: PT - Transfers Goal: Supine <-> Sit Description: Pt will perform bed mobility with HOB raised and use of rail with supervision in orderto improve functional mobility and safety. Outcome: Adequate for Discharge Goal: Sit <-> Stand Description: Pt will perform sit to/from stand transfers with standby assistance with hemiwalker inorder to improve functional mobility and safety. Outcome: Adequate for Discharge Problem: BEADING SAWYER - Language Goal: Command Following Description: Patient will complete simple 1-step commands (minimum of x10) to 80% success with max cues as needed in order to improve direction following for functional gains in ability to participate more independently in care. Outcome: Adequate for Discharge Goal: Yes/No Response Description: Patient will answer y/n questions (minimum of x15) related to current situation/environment, to 100% success with min cues, after 2-3 sessions in order to improve ability to answer medical questions/questions related to care. Outcome: Adequate for Discharge Goal: Names Basic Objects/Pictures Description: Patient will name basic objects/pictures with 80% accuracy, across 1-2 session(s) given min assist to improve word-finding and functional communication. Outcome: Adequate for [facility]charge [facility] of Present illness Narrative* Natalia Khalil, OT - 08/05/2022 2:26 PM EDT Occupational Therapy Attempt Note 08/05/2022 OT Therapy Completed: Attempted Attempted Reason: Other (see comments); upon attempt, pt actively discharging Natalia Khalil OT * NEREYDA Pope - 08/05/2022 1:11 PM EDT Social Work Final Discharge Plan and Transportation Final Discharge Planning Discharge Disposition: Inpatient Rehab Facility Services at Discharge: Residential, Occupational Therapy, Physical Therapy Community Agency Name(s) For Handoff: [facility] Phone For Handoff: [phone] Fax For Handoff: [phone] Selected Continued Care - Admitted Since 08/01/2022 Destination Coordination complete. Service Provider Selected Services Address Phone Fax Patient Preferred [facility] Inpatient Rehabilitation [address] [facility] [id number] -- -- Plan Plan: Patient to discharge to inpatient rehab hospital Patient/Family In Agreement With Plan: yes Transportation Transfer Mode: wheelchair Mode of Transfer: private vehicle Accompanied By: family member Transfer/Transport Equipment: copy of patient Records Patient medically stable for discharge per physician/medical team. SW confirmed with IPR that they are able to accept the patient this date. Insurance pre- certification has been obtained. SW arrangedtransport as indicated above, ETA is 2pm. The patient has no specialized equipment needs for transportation. AVS/DELORIS completed from a SW standpoint. SW updated the bedside RN, CCM, facility and patient/life assurance representative of the discharge plan and transport time. Patient/Director Of Direct Marketing remain in agreement with the discharge plan. Bedside RN to call report and fax AVS/DELORIS. Ambulance form left at the community service coordinator desk with a request for a printed transfer report. Discharge Instruction for Bedside RN: 1. Confirm the Ambulatory Order is in the DELORIS. 2. Print the DELORIS and AVS. 3. Print the Discharge Summary for facilities (if available). 4. Fax DELORIS, AVS and Discharge Summary (when applicable) to agency or facility. 5. Call the agency or facility for report. NEREYDA Serrano Ultrasound Supervisor [facility] 8th floor [phone] * NEREYDA Pope - 08/05/2022 8:58 AM EDT Placement Plan Expected Discharge Date: 08/07/2022 Referred Level of Care: IPR Patient Choice for Post-Acute Providers Resumption of care?: No Establishing care?: Yes Level of care for choice: Inpatient Rehab Preferred geographic region: Discussed and honored Source of list: Aidin List was provided to: Mother, Father Method of delivery: Phone Call Review Is the provider part of a joint venture or have a financial relationship with discharging hospital?: No Barriers: precert Current Referrals and Status 1. [facility] IPR - RESERVED DRUG SAFETY PHYSICIAN sent clinical updates to SNF via AIDIN. Precert is pending. Family to transport to [facility] once precert is approved. DRUG SAFETY PHYSICIAN to continue following. ADDENDUM 11:32AM: IPR confirmed they are still awaiting precert. NEREYDA Serrano Ultrasound Supervisor [facility] 8th floor [phone] * Demetrius Schultz MD - 08/05/2022 7:24 AM EDT NEUROSURGERY PROGRESS NOTE: 08/05/22 S: VICTORIANO O: PE: NAD AOxname, place, requiring significant prompting for year today PERRL EOMI FS TM Follows commands 5/5 LUE/LLE 0/5 RUE/RLE SILT Incision c/d/i Temp: [98.7 F (37.1 C)-100.7 F (38.2 C)] 98.7 F (37.1 C) Pulse (Heart Rate): [86-99] 86 Resp Rate: [16-17] 16 BP: (118-139)/(68-83) 121/81 O2 Sat (%): [95 %-97 %] 96 % O2 Sat (%): 96 % (08/054) O2 Device: room air (08/05 031) I/O last 3 completed shifts: In: 240 [P.O.:240] Out: 1000 [Urine:1000] ICP: No data recorded WBC/Hgb/Hct/Plts: 7.57/13.4/39.6/320 (08/06 443) Na/K+/Phos/Mg/Ca: 136/4.1/4.3/1.9/9.3 (08/06 443) Bun/Creat/Cl/CO2/Glucose: 14/0.65/102/23/98 (08/06 443) Imaging: post op CTH stable A/P: Romeo Gonzales is a 36 y.o. male hx L MCA aneurysm c/b L MCA infarct requiring a left DHC 05/24/22 presents for L cranioplast 08/01. PEG also removed in OR as po intake has improved and patient no longer requiring it after discussion with Dr. Elena and family. Neuro: neuro checks - aaat - adat - CTH follow up read Cards: SBP<160 Resp: ra ID: no concerns FEN/GI: DIET REGULAR PPX: SCDs, Pharm DVT ppx Dispo: IPR, precert pending Please page NS2 ([id number]) with questions. Active Problems: Acquired skull defect Present on Admission: Acquired skull defect * Alisha Alvarado MD - 08/04/2022 6:30 AM EDT NEUROSURGERY PROGRESS NOTE: 08/04/22 S: NAEON O: PE: NAD AOxname, year, requiring significant prompting for location PERRL EOMI FS TM Follows commands 5/5 LUE/LLE 0/5 RUE/RLE SILT Incision c/d/i Drain out Temp: [97.2 F (36.2 C)-99.7 F (37.6 C)] 97.3 F (36.3 C) Pulse (Heart Rate): [86-96] 86 Resp Rate: [16-20] 16 BP: (119-134)/(74-84) 127/74 O2 Sat (%): [95 %-97 %] 97 % O2 Sat (%): 97 % (08/04 449) O2 Device: room air (08/04 449) I/O last 3 completed shifts: In: 340 [P.O.:340] Out: 2800 [Urine:2800] ICP: No data recorded WBC/Hgb/Hct/Plts: 11.00/13.1/39.7/303 (08/04 102) Na/K+/Phos/Mg/Ca: 136/4.1/3.7/1.9/9.3 (08/04 102) Bun/Creat/Cl/CO2/Glucose: 14/0.69/102/25/114 (08/04 102) Imaging: post op CTH stable A/P: Romeo Gonzales is a 36 y.o. male hx L MCA aneurysm c/b L MCA infarct requiring a left DHC 05/24/22 presents for L cranioplast 08/01. PEG also removed in OR as po intake has improved and patient no longer requiring it after discussion with Dr. Elena and family. Neuro: neuro checks - aaat - adat Cards: SBP<160 Resp: ra ID: no concerns FEN/GI: DIET REGULAR PPX: SCDs, Pharm DVT ppx Dispo: IPR, precert pending Please page NS2 ([id number]) with questions. Active Problems: Acquired skull defect Present on Admission: Acquired skull defect * Bety Cooper - 08/03/2022 6:16 PM EDT Discharge Planning Patient Assessment Admission Assessment Patient Assessment Completed: Initial Anticipated discharge disposition: Inpatient Rehab Facility Reason for Admission: L Cranioplasty Is the patient able to participate in the assessment?: Yes Information source: Patient, Other Explanation of Other: Patient, Father, and family member Adonay Information Source Name/Contact: Pelon Gonzales [phone] Demographics Verified and Updated: Yes Advanced Care Planning Has the patient completed Advance Directives?: Completed, Not Available in Medical Record Copy of Advance Directives was requested?: Yes Advance Directives Requested From: Parents/Patient Legal Next of Kin Does the patient have a Guardian?: No Spouse: No Parent(s) - List All Living Parents: Yes Name and Contact information: Deana Christian [phone] Would you like to add additional parents?: Yes Name and Contact information: Pelon Gonzales [phone] Adult Sibling(s), List All Adult Siblings: Yes Name and Contact information: Joan Gonzales [phone] Would you like to add additional adult siblings?: Yes Name and Contact information: Gege Gonzales [phone] Referral to Social Work to Identify Legal Next of Kin?: No Reviewed and Updated in Demographics? : Yes Outpatient Providers Does patient have a primary care physician? : Yes When was the patient's last PCP visit?: < 30 days Does the patient follow any specialists?: Yes Reviewed and updated Care Team?: Yes Patient Care Team: Ander Nicholson, DO as PCP - General (Family Medicine) Environment/Caregivers Is the patient from a facility or nursing home?: No Patient lives with: Parent(s) (sister and Dad) Living Environment: House (Ranch style Home) How many steps does the patient have to navigate to enter or inside the home? : 0 (ramp per Dad) Does the patient have a first floor set-up with bed and bathroom?: Yes Patient Caregiving Responsibilities: Self Patient-identified caregiver/support network: Family, Home Care Staff Who does the patient identify as a teachable caregiver(s)?: Parent(s) Services Does the patient use a home health or hospice agency?: Yes - home health Agency Name and Contact : [facility] Current Home Services: Residential, PT, OT, Nursing Does patient use DME? : walker, wheelchair, hospital bed, bedside commode (ramp,kaylene walker) Does the patient use oxygen?: No Does patient use medical supplies? : none Anticipated Changes Related to Illness/Injury? : Unknown at this time Initial ADLs Prior to Arrival What is the patient's baseline physical functioning prior to this acute illness?: assist with ADLs Are there therapy or specialists consults?: Yes Select consult type: PT, OT, BEADING SAWYER Does the patient's home require any home modifications for discharge? : No CM to recommend therapy or other consults? : No Medication Management Does the patient have prescription insurance coverage? : Yes Is the patient on Anticoagulation? : No [id number] [place] [address] - [address] [facility] [address] [facility] [id number] [employer] Does the patient or life assurance representative express financial concerns? : No Employed?: No Coping/Stress Concerns about patient s coping and stress?: No Concerns about patient s caregiver s coping and stress?: No Values and Beliefs Cultural or zoroastrian practices that may impact discharge planning and/or medical care?: No Initial Discharge Planning Anticipated discharge disposition: Inpatient Rehab Facility Transportation Available for Discharge: Ambulance Anticipated DME: unknown at this time Anticipated Services at Discharge: Physical Therapy, Occupational Therapy, Outpatient follow up, Outpatient clinical services (ie: lab draws, transfusions, injectables), Residential Patient Assessment Completed: Initial Risk of Readmission: 8.8 Category Reference: High:16-100 Mod-High:10-16 Mod-Low: 5-10 Low: 0-5 Expected Discharge Date: 08/08/2022 Discharge Planning Summary Met with patient and family at bedside to complete initial assessment, introduced self and role. Patient received Home Health services at Home prior to admission via [facility]. Patientand Family aware of recommended discharge disposition and have requested/reserved placement at [facility] as the Patient has been here in the past. Anticipated discharge level of care: Inpatient Rehabilitation Internal Consultations: PT/OT/BEADING SAWYER Case Management Plan :Interventions and Strategies Will continue to follow with medical team to monitor hospital course to identify any post acute services and medical follow up. No additional needs identified at this time. Bety REED,RN Brain [facility] Weekend Clinical Hide Examiner Available on secure chat. * KARIN Ku - 08/03/2022 11:48 AM EDT Acute Care BEADING SAWYER Speech/Language/Cognitive Evaluation Best mode of Communication: spoken language (regular speech), single word responses, responds to short questions Discharge Recommendations: Based on the below outcome measures/assessment score(s) and BEADING SAWYER clinicaljudgment, discharge destination recommendation is: Inpatient Rehab Facility Supporting factors for discharge setting: Impaired speech and language skills limiting ability to communicate basic wants/needs Acute BEADING SAWYER Outcomes Tracking Communicate basic wants and needs?: yes Demo insight/appreciation of deficits?: no Complete basic problem solving?: no Current therapy frequency recommendation in acute: Speech/Lang/Cog Therapy Frequency: 3 times a week Clinical Impression: 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 Inconsistent object naming, noted to perseverate throughout as well as semantic and phonemic paraphasias. Repetition intact. Able to answer basic yes/no questions, increased difficulty with increased complexity. Inconsistent command following, but this may be due to decreased effort. Pt's family report he is able to communicate his wants/needs however has difficulty doing so. They are hopeful pt can continue to improve with further BEADING SAWYER services. Pt would benefit from ongoing BEADING SAWYER services to address noted deficits and assist in communicating wants/needs. Patient Instruction/Education this session: role of BEADING SAWYER, provided Aphasia handout to family members Plan for next session: initiate POC Subjective: Pleasant and agreeable to evaluation, required encouragement to keep his eyes open throughout. Family members at bedside who report he progressed well with BEADING SAWYER services in IPR, however upon returning home his speech has declined. Pain: General Pain Documentation (Adult, OB, Peds) Presence of Pain: non-verbal indicator of pain/discomfort not present DVPRS (Defense and Veterans Pain Rating Scale) DVPRS: Rest: 5- moderate pain DVPRS: Activity: 5- moderate pain Lines/Drains/Tubes: Lines/Tubes/Drains (Rehab Status): (ARVIND X1) Patient History Comments: Romeo Gonzales is a 36 y.o. male who presents per chart with history of hypertension and left MCA aneurysm who comes in for discussion of left cranioplasty. He required a left hemicraniectomy for a malignant left MCA infarct suffered after attempted treatment of a symptomatic left MCA aneurysm. He did fairly well and after PEG placement went to a SNF. He was also diagnosed with a right brachial DVT and started on apixaban prior to discharge. He had a follow up CT head today that shows expected encephalomalacia and a sunken flap on the left. Of note, pt's family report he has progressed to a regular diet and thin liquids during IPR and is having no trouble swallowing. CT Head 08/01/2022: IMPRESSION: 1. Postoperative changes are seen following left-sided cranioplasty. Good reapproximation of the calvarium across the prior craniectomy defect. 2. Interval development of a subcentimeter oblong hyperdensity along the anterior margin of the chronic left MCA infarct, possibly a small volume of postoperative blood products. Recommend close attention on follow-up imaging. 3. No significant extra axial fluid collection adjacent to the cranioplasty. Prior BEADING SAWYER services: BEADING SAWYER Treatment note 06/05/2022: Romeo Gonzales presents with significant improvement in verbal speech, spontaneously responding to BEADING SAWYER questions with yes, no, ok. Noted semantic and phonemic paraphasias with naming and in conversation. Intact automatic speech. Accurate yes/no responses for basic con tent. Above most consistent with mixed aphasia (inconsistent fluency, +comprehension for basic, +repetition this date). Also noted improved scanning right of midline as compared to prior sessions, inconsistent right neglect in identifying items in horizontal plane. Family entering room at end of session, education provided for above improvements in participation and communication, encouraged yes/no questions for pain and wants/needs as well as extended processing time. All questions answered. Pt's family member reported he received BEADING SAWYER services 5x/week in [facility], and has been receiving BEADING SAWYER services at home 1-2x/week. Prior Level of Function: Residence: House Lives With: (lives with sister and dad) IADL History IADLs: needs assist IADL Comments: family assists with IADLs Respiratory Status: Room Air EXPRESSIVE LANGUAGE: Impaired Task: Automatic Speech Intact Phrase Completion Functional Confrontation Naming Functional Answering 'wh' Questions Impaired Repetition Intact Verbalize Basic Wants and Needs Functional Functional Participation in Conversation Impaired Expressive Language Characteristics: Non-Fluent RECEPTIVE LANGUAGE: Impaired Task: Follow 1-Step Commands Functional Answers Basic Y/N Questions Functional Answers Complex Y/N Questions Impaired Conversational Comprehension Functional READING: Impaired Task: Functional Environmental Reading Impaired WRITING: Unable to assess SOCIAL INTERACTION/PRAGMATICS: Impaired COGNITION: Impaired Task: Arousal/Alertness Delayed responses to stimuli Orientation Level Oriented to person CRANIAL NERVE EXAMINATION: Cranial Nerve Exam CN V (Trigeminal) weakness of either masseter or temporal muscles or both CN VII (Facial) unilateral or bilateral weakness of upper or lower face or both CN IX (glossopharyngeal) voice quality strong and clear CN X (Vagus) uvula is midline CN XI (Accessory) not tested CN XII (Hypoglossal) tongue midline with strong equal strength MOTOR SPEECH TASKS: Functional Task: Imitate Motor Movements Impaired Imitate Sounds and Words Functional Rapid Alternating Movements Functional Speech Intelligibility Functional Fluency Functional Saliva Management Functional VOCAL PARAMETERS: Intact Task: Vocal Quality WDL Subjective Voice Evaluation Grade of dysphonia (G): 0 Roughness (R): 0 Breathiness (B): 0 Asthenia (A): 0 Strain (S): 0 BEADING SAWYER Outcomes: The [place] Aphasia Screening Test (MAST) was developed as a brief, repeatable screening measure for individuals with impaired communication/language skills. The MAST was designed to be used for serial assessments to detect changes in language abilities over time. Patient scored the following on the 9 subtests: Expressive Index Naming Expressive Index: 5/10 Automatic Speech Expressive Index: 8/10 Repetition Expressive Index: 10/10 Writing Expressive Index: 0/10 (did not administer due to pt not able to use right hand) Verbal Fluency Expressive Index: 5/10 (Based on Cookie Theft Picture) Receptive Index Yes/No Accuracy Receptive Index: Object Recognition Receptive Index: 0/10 (did not administer due to pt requesting not to use hands) Following Instructions Receptive Index: 0/10 (suspect due to decreased effort) Reading Instructions Receptive Language Index: 210 Expressive Index Subscale: 28/50 Receptive Index Subscale: 16/50 Total Index Score: 44/100 Acute BEADING SAWYER Goals Plan of Care by KARIN Ku at 08/03/2022 11:48 AM Version 1 of 1 Problem: BEADING SAWYER - Language Goal: Command Following Description: Patient will complete simple 1-step commands (minimum of x10) to 80% success with max cues as needed in order to improve direction following for functional gains in ability to participate more independently in care. Outcome: Ongoing Goal: Yes/No Response Description: Patient will answer y/n questions (minimum of x15) related to current situation/environment, to 100% success with min cues, after 2-3 sessions in order to improve ability to answer medical questions/questions related to care. Outcome: Ongoing Goal: Names Basic Objects/Pictures Description: Patient will name basic objects/pictures with 80% accuracy, across 1-2 session(s) given min assist to improve word-finding and functional communication. Outcome: Ongoing I used facemask, protective eye shield, and gloves in today's patient interaction. Speech Language Pathologist: KARIN Ku Time In: 1148 Time Out: 1216 Total Visit Time: 28 minutes Total Treatment Time (skilled, billable minutes): 28 minutes Patient location at end of session: bed with head of bed elevated Alarms on at end of session: Family at bedside Needs in reach. BEADING SAWYER Evaluation and Treatment Time Speech Sound Production Eval W/ Lang Comp and Exp Time Entry: 28 Upon discontinuation of Acute Care Speech Therapy Services or patient discharge from the hospital this note represents the current Speech Therapy Discharge Summary * Jeanine Turner MD - 08/03/2022 5:00 AM EDT NEUROSURGERY PROGRESS NOTE: S: NAEON O: PE: NAD Alert, orientedname, year, not location PERRL EOMI R face weakness, TM FCx4 RUE 0/5 LUE 5 RLE w/d LLE 5 SILT Incision c/d/i Temp: [97.3 F (36.3 C)-99.7 F (37.6 C)] 99.6 F (37.6 C) Pulse (Heart Rate): [86-99] 99 Resp Rate: [16-20] 16 BP: (118-128)/(68-82) 118/68 O2 Sat (%): [95 %-97 %] 95 % O2 Sat (%): 95 % (08/04 1200) O2 Device: room air (08/04 08) I/O last 3 completed shifts: In: 340 [P.O.:340] Out: 2100 [Urine:2100] ICP: No data recorded WBC/Hgb/Hct/Plts: 11.00/13.1/39.7/303 (08/04 102) Na/K+/Phos/Mg/Ca: 136/4.1/3.7/1.9/9.3 (08/04 102) Bun/Creat/Cl/CO2/Glucose: 14/0.69/102/25/114 (08/04 102) Imaging: post op CTH stable A/P: Romeo Gonzales is a 36 y.o. male hx L MCA aneurysm c/b L MCA infarct requiring a left DHC 05/24/22 presents for L cranioplasty 08/01. PEG also removed in OR as po intake has improved and patient no longer requiring it after discussion with Dr. Elena and family. HCT with expected post op changes Neuro: neuro checks - aaat - adat -dc drain Cards: SBP<160 Resp: ra ID: [id number] FEN/GI: DIET REGULAR PPX: SCDs, Pharm DVT ppx Dispo: IPR Please page [email or web address] ([phone]) with questions. Active Problems: Acquired skull defect Present on Admission: Acquired skull defect * NEREYDA Pope - 08/02/2022 3:25 PM EDT Placement Plan Expected Discharge Date: 08/06/2022 Referred Level of Care: IPR Patient Choice for Post-Acute Providers Resumption of care?: No Establishing care?: Yes Level of care for choice: Inpatient Rehab Preferred geographic region: Discussed and honored Source of list: Aidin List was provided to: Mother, Father Method of delivery: Phone Call Review Is the provider part of a joint venture or have a financial relationship with discharging hospital?: No Barriers: precert Current Referrals and Status 1. [facility] IPR - RESERVED IPR liaison confirmed ability to accept patient. Precert has been initiated. DRUG SAFETY PHYSICIAN updated patients parents. DRUG SAFETY PHYSICIAN to continue following. NEREYDA Serrano Ultrasound Supervisor [facility] 8th floor [phone] For Social Work assistance for the weekend, please contact for assistance as needed (8:00am - 4:30pm): [facility]: [phone] Johanne: [phone] Kirit: [phone] Homero/REZA/CHANTALEU Jai: [phone] * NEREYDA Pope - 08/02/2022 1:44 PM EDT Reason for Consult: discharge planning Consulted By: Treatment Team Level(s) of Care Discussed: IPR Patient's Preferred Geographic Area for Discharge: Patient's preference for providers to include? 1.[facility] Patient's preference for providers to exclude? 1. Patient and/or Director Of Direct Marketing Discussion Discussed referral process with the patient (and/or life assurance representative). Patient is agreeable to have placement referral initiated. NEREYDA Serrano Ultrasound Supervisor [facility] 8th floor [phone] For Social Work assistance for the weekend, please contact SW for assistance as needed (8:00am - 4:30pm): [facility]: [phone] Johanne: [phone] Kirit: [phone] Homero/MICU/PCU Jai: [phone] * Sri Randi - 08/02/2022 9:44 AM EDT Acute Occupational Therapy Evaluation Prior to Admission AM-PAC Score: PRIOR LEVEL AM-PAC Activity Raw Score: 21 Current AM-PAC score(s): CURRENT AM-PAC Activity Raw Score: 12 Based on the above AM-PAC score(s) and OT clinical judgment, discharge destination recommendation is: Inpatient Rehab Facility Barriers to discharge home: Patient needs assistance with functional mobility, Patient needs assistance with ADLs, Patient needs assistance with IADLs (see note below) Supporting Factors (would benefit from skilled therapy services): Impaired functional status, Impaired balance, Impaired self-care abilities, Patient has appropriate assistance and setup at home for ultimate discharge to home once patient has progressed functionally following inpatient rehab Mobility equipment available at home: manual wheelchair (kaylene-walker) ADL equipment available at home: bedside commode, shower bench Equipment recommendations for discharge: to be determined Current therapy frequency recommendation(s) in acute: 5 times a week Precautions and Weightbearing Status: OT Existing Precautions/Restrictions: fall (ARVIND X1) Patient Safety Communication Prior to Visit: Nursing Subjective: Pt agreeable to participate in therapy session. Family members bedside throughout session. Pain: General Pain Documentation (Adult, OB, Peds) Presence of Pain: complains of pain/discomfort Pain Location: abdomen Home Setting Residence: House Lives With: (lives with sister and dad) First floor setup: bedroom, tub shower Number of stairs to enter home: ramp Mobility Equipment Available: manual wheelchair (kaylene-walker) ADL Equipment Available: bedside commode, shower bench Previous Level of Function Prior level ADL Overview: Needs assist Bathing: needs assist Upper Body Dressing: independent Lower Body Dressing: needs assist Grooming: independent Toileting: needs assist Eating: independent (with plate guards) Bed Mobility/Transfers: needs device and assist Ambulation Skills: needs device and assist Assistive Device: kaylene walker Level of Ambulation: (household since recent discharge from rehab, community prior) Prior Level of Function Details: per family report, since discharge from rehab facility and being home, was using a kaylene-walker and 1 person assist to ambulate at home, ADLs reflective of status in past few weeks since rehab discharge, previously independent IADL History IADLs: needs assist IADL Comments: family assists with IADLs Objective/Observation: Vitals/Vitals Responses to Treatment: WFL, slight dizziness upon sitting EOB, resolves quickly withheel pumps O2 Device: room air Vision Screen Currently wearing corrective lenses: Yes Subjective Patient Complaints: (pt's family reports potential field cut in R eye as they have noticed his reaction at home however baseline prior to current surgery) Visual Impairments Observed?: Yes (limited assessment this date due to decreased command following;jerky pursuits unclear whether due to visual or cognitive deficits) Ocular (Smooth) Pursuits - Descripton: Jerky Further visual assessment recommended: yes Speech Speech: word-finding difficulties Hearing Hearing: decreased left (potentially due to dressing surrounding L ear) Cognition Overall Cognitive Status: Impaired Arousal/Alertness: Delayed responses to stimuli Orientation Level: Oriented to person (stating place as [facility], corrected to appropriate date and place; able to state month and year) Following Commands: Follows one step commands with increased time, Follows one step commands with repetition, Follows commands 50-75% of the time Safety Judgment: Decreased awareness of need for assistance, Decreased awareness of need for safety Attention Span: Attends with cues to redirect Cognition Comments: delayed responses, requiring one step cues with approx 50- 75% command following ADLs: ADL Assessment: Eating Deficit, Grooming Deficit, Bathing Deficit, UE Dressing Deficit, LE DressingDeficit, Toileting Deficit ADL Anticipated Performance (ADLs not directly observed this session): Eating, Grooming, Bathing, UE Dressing, LE Dressing, Toileting Eating Assistance: Maximal Grooming Assistance: Moderate Bathing Assistance: Maximal UE Dressing Assistance: Maximal LE Dressing Assistance: Maximal Toilet Assistance: Maximal Extremity Assessments: RUE Assessment RUE Assessment: PROM WFL (no AROM noted) LUE Assessment LUE Assessment: AROM WFL, Strength WFL Balance: Sitting Balance Static Sitting-Level of Assistance: (SBA-CGA) Dynamic Sitting-Level of Assistance: Contact guard Skilled Rationale: Positioning, Sequencing, Hand placement, Verbal cues, Finding/maintaining midline positioning Sitting Balance Skilled Intervention/Details: pt demonstrated retro and R leaning while seated EOB,able to correct with cues, able to scoot hips to EOB with increased time and cues for positioning Standing Balance Static Standing-Level of Assistance: (Mod-Max) Standing-Balance Support: Gait belt (kaylene walker on L side) Skilled Rationale: Positioning, Hand placement, Verbal cues, Sequencing, Finding/maintaining midline positioning Standing Balance Skilled Intervention/Details: cues for LE positioning, pt demonstrating difficultyto maintain wider stance for larger base of support Neuro: Sensation Overall Sensation: Impaired Sensation Comments: (pt and family report RUE sensation baseline prior to surgery however impaired) Fine Motor Coordination Additional Documentation: Yes Fine Motor Coordination Left Hand, Finger To Nose: mild impairment Right Hand, Finger To Nose: unable to perform Left Hand Thumb/Finger Opposition Skills: mild impairment Right Hand Thumb/Finger Opposition Skills: unable to perform Mobility Assessment: Supine to Sit Mobility [place] Level: Supine->Sit: moderate assist (50% patient effort) Bed Features/Set-up: Supine->Sit: Head of bed elevated, Use of bed rail Skilled Rationale: Positioning, Sequencing, Hand placement, Verbal cues Skilled Intervention/Details: Supine->Sit: one step cues for positioning, pt able to advance LEsoff EOB, with assist for trunk and scooting with cues for positioning Transfer Assessment: Sit to Stand Transfer Canadian Level: Sit->Stand: (mod-max) Assistive Device: Sit->Stand: gait belt, kaylene walker Skilled Rationale: Positioning, Sequencing, Hand placement, Verbal cues, Technique of activity Skilled Intervention/Details: Sit->Stand: x2 trials from EOB, cues for upright posture, max cuesfor LE positioning, and hand positioning on kaylene-walker Functional Mobility: Functional Mobility Canadian Level: Functional Mobility/Gait: (Mod A for body, Max A to advance LLE) Physical Assist: Functional Mobility/Gait: 2 person assist Assistive Device: Functional Mobility/Gait: kaylene walker, gait belt Functional Mobility Distance: Distance needed to access BSC/chair Functional Mobility Deficits: Balance, Decreased step length, Narrow base of support, Generalized weakness Functional Mobility Skilled Rationale: Verbal cues, Walker management/safety, Facilitate positioning, Finding/maintaining midline positioning, Facilitate postural control Outcome Score(s): CURRENT [facility] Daily Activity Inpatient Short Form Putting on/Taking Off Lower Body Clothin - A Lot of Assistance Bathin - A Lot of Assistance Toiletin - A Lot of Assistance Putting on/Taking Off Upper Body Clothin - A Lot of Assistance Groomin - A Lot of Assistance Eatin - A Lot of Assistance CURRENT [facility] Activity Raw Score: 12 CURRENT [facility] Activity Functional Limitation/Modifier: 66.57% Currently Impaired in Daily Activity- CL Assessment & Plan: Patient was admitted for history of hypertension and left MCA aneurysm who comes in s/p left cranioplasty and seen for therapy evaluation related to ADL and functional mobility deficits. Exam findings include impairments in: balance, cognitive impairments, coordination, transfers, ROM,sensation, strength. These impairments contribute to occupational performance limitations includingbathing, dressing, grooming, toileting, functional mobility, ADL transfers. 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 left Acute deep vein thrombosis (DVT) of brachial vein of right upper extremity 06/05/2022 Aneurysm of middle cerebral artery 05/22/2022 left 1.8 x 1.2 cm M1 aneurysm Aphasia as late effect of cerebrovascular accident 05/22/2022 Current use of retirement anticoagulation 06/05/2022 right acute brachial DVT Dysphagia as late effect of cerebrovascular accident (CVA) 05/22/2022 06/04/2022 PEG placed by [facility] Hemiparesis affecting right side as late effect of stroke 05/22/2022 Hyperlipidemia 05/22/2022 05/22/2022 LDL 126, started on statin Hypertension Obesity (BMI 30-39.9) Subarachnoid hemorrhage from middle cerebral artery aneurysm, left 05/22/2022 attempted left MCA clipping. Aneurysm wrapped. Left MCA dissection. Psychosocial Factors Positive indicators for performance: Adequate support system Patient will benefit from skilled occupational therapy to address these impairments, occupational performance limitations, and participation restrictions. Patient's rehab potential is: good, to achieve stated therapy goals. Planned Therapy Interventions (OT Eval): ADL retraining, balance training, cognitive training, transfer training, neuromuscular re-education Patient Instruction/Education this session: Patient Instruction: OT role, plan of care Plan for next session: functional transfers, ADL routines (family and pt requested UE and LE dressing techniques), command following Acute OT Goals Plan of Care by Natalia Khalil OT at 08/02/2022 8:50 AM Version 1 of 1 Problem: OT - Dressing Goal: Upper Body Dressing Description: Pt will complete UE dressing task Edge of bed with supervision for improved ability tocomplete self-care activities. Outcome: Ongoing Goal: Lower Body Dressing Description: Pt will complete LE dressing tasks with supervision for improved ability to complete self-care activities. Outcome: Ongoing Problem: OT - Cognition Goal: Cognition simple ADL Description: Pt will demonstrate improved cognition, completing simple ADL task for 8 minutes with no cues required to maintain attention, for improved safety and success at discharge destination. Outcome: Ongoing Problem: OT - Balance Goal: Balance - Standing Description: Pt will perform 6-8 minutes of functional ADL task in standing with a balance level ofcontact guard to promote safety and improved balance required for self-care activities. Outcome: Ongoing Problem: OT - Transfers Goal: Transfers Toilet/Bedside Commode Description: Pt will transfer to/from toilet/BSC with standby assistance for improved ability to safely complete ADLs. Outcome: Ongoing OT treatment consisted of the following to work and progress towards the above goal(s): OT Evaluation and Treatment Time OT Evaluation (High) Time Entry: Evaluating Therapist: Sri Bryan Additional Details: Co-evaluation/co-treatment performed?: Yes, simultaneous billable skilled care This co-evaluation session performed between OT and PT was beneficial, necessary and provided distinct services in establishing this person's individual plan of care. Medical complexity with functional deficits necessitated two skilled therapy disciplines working concurrently to determine each discipline's goals. This co-treatment was medically necessary due to patient's: Cognitive issues and Postural control I used gloves and facemask in today's patient interaction. OT Evaluation Complexity Occupational Profile and Client History: High - extensive history Assessment of Occupational Performance: High (5 or more performance deficits) Clinical Decision/Performance Deficits: High (comprehensive assessments w/multiple treatment options) Time In: 916 Time Out: 943 Total Visit Time: 27 minutes Total Treatment Time (skilled, billable minutes): 27 minutes Patient location at end of session: chair Alarms on at end of session: chair alarm Needs in reach. Upon discontinuation of Acute Care Occupational Therapy Services or patient discharge from the hospital this note represents the current Occupational Therapy Discharge Summary. Associated attestation - Natalia Khalil OT - 08/02/2022 1:41 PM EDT I, Natalia Khalil, OT, provided direct guidance in the room during this patient care session. I attest that all documentation reflects accurate skilled clinical decisions and judgements. * Kiara Ariza, PT - 08/02/2022 9:17 AM EDT Acute Physical Therapy Evaluation Prior to Admission [facility] score(s): PRIOR LEVEL AM-PAC Mobility Raw Score: 17 Current AM-PAC score(s): CURRENT AM-PAC Mobility Raw Score: 14 Based on the above AM-PAC score(s) and PT clinical judgment, patient is a good candidate for discharge to Inpatient Rehab Facility Family is hopeful for return to IRF d/t decline in mobility s/p this OR for more training prior to return home. Barriers to discharge home: Patient needs assistance with functional mobility Supporting Factors (would benefit from skilled therapy services): Patient status is anticipated to be appropriate to tolerate inpatient rehab therapy requirements at time of discharge from acute care, Assistance needed with functional mobility, Patient has appropriate assistance and setup at home for ultimate discharge to home once patient has progressed functionally following inpatient rehab Mobility equipment available at home: manual wheelchair (kaylene-walker) ADL equipment available at home: bedside commode, shower bench Equipment needed for discharge: none Current therapy frequency recommendation in acute: Therapy Frequency: 5 times a week Precautions and Weightbearing Status: Existing Precautions/Restrictions: fall (ARVIND X1) Patient Safety Communication Prior to Visit: Nursing Subjective: Happy to not have helmet anymore Pain: General Pain Documentation (Adult, OB, Peds) Presence of Pain: complains of pain/discomfort Pain Location: head, abdomen DVPRS (Defense and Veterans Pain Rating Scale) DVPRS: Rest: 0- no pain DVPRS: Activity: 5- moderate pain Home Setting Residence: House Lives With: (lives with sister and dad) First floor setup: bedroom, tub shower Number of stairs to enter home: ramp Mobility Equipment Available: manual wheelchair (kaylene-walker) ADL Equipment Available: bedside commode, shower bench Hospital bed AFO Ambulation Skills: needs device and assist Assistive Device: kaylene walker Level of Ambulation: (household since recent discharge from rehab- 45 ft bouts generally) Prior Level of Function Details: per family report, since discharge from rehab facility and being home, was using a kaylene-walker and 1 person assist to ambulate at home Objective/Observation: Vitals/Vitals Responses to Treatment: Not assessed; no S/S of intolerance O2 Device: room air Cognition Overall Cognitive Status: Impaired Arousal/Alertness: Delayed responses to stimuli Orientation Level: Oriented to person, Oriented to place Following Commands: Follows one step commands with increased time, Follows commands greater than 75% of the time Safety Judgment: Decreased awareness of need for safety, Decreased awareness of need for assistance Vision Screen Currently wearing corrective lenses: Yes Visual Impairments Observed?: (baseline rt visual cue) Speech Speech: (delayed; functional) Hearing Hearing: no gross deficits noted Extremity Assessments: RLE Assessment RLE Assessment: (ROM WFL; 0/5 noted, mild inc tone) LLE Assessment LLE Assessment: Within Functional Limits Sensation Overall Sensation: Impaired (dec but intact to light touch to rt extremities) Mobility Assessment: Supine to Sit Mobility Canadian Level: Supine->Sit: minimum assist (75% patient effort) Bed Features/Set-up: Supine->Sit: Head of bed elevated Balance: Sitting Balance Static Sitting-Level of Assistance: Standby Dynamic Sitting-Level of Assistance: Contact guard Standing Balance Static Standing-Level of Assistance: Minimum assistance Dynamic Standing-Level of Assistance: Moderate assistance Standing-Balance Support: (hemiwalker lt) Transfer Assessment: Sit to Stand Transfer Canadian Level: Sit->Stand: moderate assist (50% patient effort) Assistive Device: Sit->Stand: kaylene walker Stand to Sit Transfer Canadian Level: Stand->Sit: moderate assist (50% patient effort) Assistive Device: Stand->Sit: kaylene walker Gait/Functional Mobility: Gait Assessment Canadian Level: Gait: (mod to body, max to RLE) Assistive Device: Gait: kaylene walker Ambulation Distance (Feet): 7 Stairs: Outcome Score(s): CURRENT AM-PAC Basic Mobility Inpatient Short Form Turning over in bed: 3 - A Little Assistance Sitting/standing from chair: 2 - A Lot of Assistance Moving from lying on back to sittin - A Little Assistance Moving to and from bed to chair: 3 - A Little Assistance Walk in hospital room: 2 - A Lot of Assistance Climbing 3-5 steps with a railin - Total Assistance CURRENT [facility] Mobility Raw Score: 14 CURRENT [facility] Mobility Functional Limitation/Modifier: 61.29% Currently Impaired in Basic Mobility- CL Interventions: 1. AFO wrapped to rt ankle d/t typical wear of AFO but not in the room with him; family is familiarwith this 2. Supine to sit with assist as noted above Cues for logroll; crossing midline to rail with UE; sequencing LE- pt able to hook to assist 3. Sit<>stand with assist as noted above Cues for hand push from sitting surface and reach to hemiwalker; x 3 attempts d/t rt lean 4. Gait distance and assist as noted above Cues during gait for placement of kaylene walker, weight shift, posture, stance width and assist throughout to midline trunk and RLE advancement and locking Assessment & Plan: Patient was admitted for hx L MCA aneurysm c/b L MCA infarct requiring a left DHC 05/24/22 presents for L cranioplast 08/01. PEG also removed in OR as po intake has improved and patient no longer requiring it after discussion with Dr. Elena and family and seen for therapy evaluation related to post po mobility progression Family is hopeful for return to IRF d/t decline in mobility d/t this OR for more training prior to return home. Exam findings include impairments in: Strength, Balance, Sensation, ROM (range of motion), Coordination, Transfers, Gait/Locomotion, Tone/Spasticity/Clonus, Aerobic capacity/endurance, Cognition/Arousal/Attention. These impairments contribute to functional limitations including Decreased functionalmobility. Current clinical presentation is Evolving - changing/inconsistent clinical characteristics (Moderate). Patient history factors impacting Plan Of Care include none. Patient will benefit from skilled physical therapy to address these impairments, functional limitations, and participation restrictionsand has good rehab potential to achieve therapy goals. Planned Therapy Interventions: balance training, bed mobility training, endurance, functional activity tolerance, gait training, strengthening, transfer training, neuromuscular re-education, motor coordination training Patient Instruction/Education this session: mobility Plan for next session: gait progression Acute PT Goals Plan of Care by Kiara Ariza PT at 08/02/2022 9:42 AM Version 1 of 1 Problem: PT - Mobility Goal: Ambulation Description: Pt will ambulate 45 feet with hemiwalker with minimal assistance to improve ability tonavigate home environment. Outcome: Ongoing Problem: PT - Transfers Goal: Supine <-> Sit Description: Pt will perform bed mobility with HOB raised and use of rail with supervision in orderto improve functional mobility and safety. Outcome: Ongoing Goal: Sit <-> Stand Description: Pt will perform sit to/from stand transfers with standby assistance with hemiwalker inorder to improve functional mobility and safety. Outcome: Ongoing PT treatment consisted of the following to progress towards the above goal(s): PT Evaluation and Treatment Time PT Evaluation (Moderate) Time Entry: 10 Gait Training Time Entry: 15 Evaluating Therapist: Kiara Ariza PT Additional Details: Co-evaluation/co-treatment performed?: Yes, simultaneous billable skilled care This co-evaluation session performed between PT and OT was beneficial, necessary and provided distinct services in establishing this person's individual plan of care. Medical complexity with functional deficits necessitated two skilled therapy disciplines working concurrently to determine each discipline's goals. This co-treatment was medically necessary due to patient's: safety with initial mobility assessment I used facemask in today's patient interaction. Evaluation Complexity Components History: High (3 personal factors and/or comorbidities) Body Systems Review: High (Addressing a total of 4 or more elements) Clinical Presentation: Evolving - changing/inconsistent clinical characteristics (Moderate) Clinical Decision Making: Moderate Time In: 916 Time Out: 941 Total Visit Time: 25 minutes Total Treatment Time (skilled, billable minutes): 25 minutes Patient location at end of session: chair Alarms on at end of session: chair alarm, RN aware and family presnet Needs in reach. Upon discontinuation of Acute Care Physical Therapy Services or patient discharge from the hospitalthis note represents the current Physical Therapy Discharge Summary. * Demetrius Schultz MD - 08/02/2022 7:29 AM EDT NEUROSURGERY PROGRESS NOTE: 08/02/22 S: VICTORIANO O: PE: NAD AOxname, year, requiring significant prompting for location PERRL EOMI FS TM FCx4 5/5 BUE 0/5 BLE SILT Incision c/d/i Drain ss Temp: [97.6 F (36.4 C)-98.5 F (36.9 C)] 98 F (36.7 C) Pulse (Heart Rate): [81-95] 87 Resp Rate: [8-21] 16 BP: (121-179)/(80-100) 135/90 O2 Sat (%): [95 %-100 %] 97 % O2 Sat (%): 97 % (08/02 350) O2 Device: room air (08/02 350) I/O last 3 completed shifts: In: 1600 [P.O.:300; I.V.:1200; IV Piggyback:100] Out: 390 [Other:190] ICP: No data recorded WBC/Hgb/Hct/Plts: 11.39/12.9/38.6/319 (08/02 14) Na/K+/Phos/Mg/Ca: 137/4.2/4.1/1.8/8.8 (08/02 14) Bun/Creat/Cl/CO2/Glucose: 14/0.62/105/23/112 (08/02 14) Imaging: post op CTH stable A/P: Romeo Gonzales is a 36 y.o. male hx L MCA aneurysm c/b L MCA infarct requiring a left DHC 05/24/22 presents for L cranioplast 08/01. PEG also removed in OR as po intake has improved and patient no longer requiring it after discussion with Dr. Elena and family. Neuro: neuro checks - aaat - adat Cards: SBP<160 Resp: ra ID: [id number] FEN/GI: DIET REGULAR PPX: SCDs, Pharm DVT ppx Dispo: IPR Please page NS2 ([email or web address]) with questions. Active Problems: Acquired skull defect Present on Admission: Acquired skull defect [facility]* Nursing Notes - Ann Finn RN - 08/05/2022 1:54 PM EDT Patient discharged. AVS reviewed with patient and family at bedside. PIV removed per policy. All patient belongings packed and with patient. Family to transport patient to IPR facility. AVS DELORIS and DC summary faxed and paper copies provided to family. Report called to accepting facility and all questions answered. Nursing staff assisted patient to car. [facility]03-20-[facility]23 Hospital Discharge instructions* Discharge Instructions* ROJELIO Leone - 08/05/2022 1:26 PM EDT Reason for hospitalization: Romeo Gonzales Is a 36 year old male being electively admitted for evaluation and treatmetn of left acquired skull defect. Hospital Course: Romeo Gonzales is a 36 year old male with medical comorbidities including obesity, hypertension, hyperlipidemia who suffered a SAH secondary to ruptured left MCA aneurysm in May 21, 2022. He underwent subtotal clipping of the left MCA due to MCA dissection. We left the bone flap off due to left MCAdistribution stroke. He was started on aspirin. Family declared him DNRCCA. He developed a right upp er extremity DVT and was started on apixiban. A PEG was placed during that hospitalization. He was discharged to inpatient acute rehab and eventually to home. We discussed replacement of his bone flap and removal of the PEG during next hospitalization. We held his apixiban for 2 days prior. He was brought to the OR on 08/01/2022 for left cranioplasty. While sedated, we also removed his PEG. He tolerated both procedure and there were no complications. Transferred to the floor where we engaged therapies. Drain removed on POD #1. He was receiving enoxaparin for DVT prophylaxis. Family leonel red for him to return to inpatient rehab to continue therapies to improve mobility and speech. Insurance authorized this on 08/05/2022. Discharge plan: Romeo Gonzales is being dishcarged to [facility] where he can continue therapies for strength, mobility and speech. The facility may remove the mariano and drain stitch on or after 08/15/2022. He willreturn to clinic in 6 weeks for wound check and also to discuss re-evaluation of the MCA aneurysm. He may restart the apixiban for his DVT on 08/05/2022. Duration for this therapy will be determined by his PCP. * Medications* ROJELIO Leone - 08/05/2022 1:27 PM EDT Education Regarding your Medication: Restart apixiban for DVT on 08/05/2022 evening dose. Unless approved by your surgeon, do not take any non-steroidal anti-inflammatory drugs, called NSAIDs. These medicines include ibuprofen (Motrin or Advil), naprosyn (Naproxen or Aleve), and arthritismedications such as Celebrex for several weeks following surgery. Please discuss with your neurosurgeon prior to taking any of these medications. PAIN MEDICATION: As first line pain medication, please use: Tylenol Extra-strength/Acetaminophen, 2 tablets every 4-6 hours as needed for mild pain. DO NOT TAKE MORE THAN 4000MG PER DAY. A prescription for a stronger pain medicine has been sent home with you. Please use this as needed as a second pain medication for breakthrough pain between Tylenol doses. Pain medication is typically not refilled by your neurosurgeon. If your pain continues for longer than 1-2 weeks after surgery, please see your primary care physician for ongoing pain management. Narcotic pain medication may cause constipation. Be sure to take stool softeners or laxatives whileyou are on narcotic pain medication. Take pain medication with food to prevent nausea. Wean yourself off narcotics as soon as you are able. These can cause rebound headaches and may evenmake headaches worse. Do not drink any alcoholic beverages until approved by your surgeon. This may thin your blood and increase your risk of bleeding. * Discharge Instr - Activity* ROJELIO Leone - 08/05/2022 1:29 PM EDT Activity: To protect your health, follow these guidelines from your surgeon: Walk as you are able. Start with short distances and work up to longer times standing and walking. Tell your surgeon about your progress at your follow-up visit. Use the hand railing for support when going up and down stairs. It is normal for your energy level and sleep patterns to change after surgery. These things slowly return to normal as you start your usual activities. Get extra sleep at night and take naps during the day while you heal. Remember, everyone s recovery is different, so don t get discouraged. You may do light housework, such as dusting, but not vacuuming. Do not drive or operative power tools or machinery until approved by your surgeon. For one month following surgery, do not sit in a car for more than 45 minutes. If you take a longertrip than 60 minutes, stop every hour and get out and walk around for a few minutes. Avoid all tub baths, hot tubs and swimming pools until your surgeon has given approval to soak the incision in water. Your surgeon will instruct you when it is safe to return to work. * Discharge Instr - Notify* ROJELIO Leone - 08/05/2022 1:26 PM EDT When to call your Surgeon's Office: If you have one or more of these signs call your surgeon s office. The phone number will be under the follow up section of your discharge instructions: Temperature of 100.4 degrees Fahrenheit or greater (38 degrees Celsius) Drainage from your incision Skin around the incision becomes red, warm, swollen or painful Feeling any fluid dripping from your nose or your ears When to go to the Emergency Department: If you have any of these signs go to the nearest emergency department or call 911 right away: Any change in alertness; feel more sleepy than usual, restless and/or confused Breathing problems Chest pain (including chest pressure or tightness) Vision problems or a change in vision New problems with weakness, numbness, balance, walking or inability to move an arm or leg. Problemsmay be only on one side of the body. Change in face appearance, such as drooping on one side of the face Not able to speak or problems when talking Trouble swallowing Seizures Nausea and vomiting that continues or gets worse Severe headache or headache with a stiff neck Contact Information: Eyad Mujica MD, PhD Tiffanie Ronquillo, MYRON, RN, SHAR-MAURI [address] [place] [address] You may call your neurosurgeon s office, , Friday through Friday between 8:30am and 4:30pm if you have questions. The outpatient nurse may also be available to answer questions at that time. For after hours or the weekend, you may call the office which will take you to the answering service. Patient experience survey reminder You may receive a survey in the mail within a few weeks regarding your hospitalization. This helps us to improve the care and services we provide at [facility]. We truly appreciate you taking the time to fill this out. We particularly welcome any specific comments you may have (positive or constructive regarding yourexperience at [facility] so that we may continue to strive towards excellence for our patients. * Discharge Instr - Wound Care* ROJELIO Leone - 08/05/2022 1:28 PM EDT Staple/stitches Removal: FACILITY may remove mariano and drain stitch on or after 08/15/2022 Incision Care: Check your incision every day for redness or drainage. It is normal to have some bruising, swellingor tenderness around the incision. NEVER leave a wet or dirty dressing on your incision. If your incision is damp or dirty it can delay healing and lead to infection. Do not scratch or pick at the incision as it heals. Protect your incision by: Cleaning the area around the wound and putting on a new dressing Taking a shower if it has been 3 or more days after surgery Do not take a tub bath or submerge your incision under water Dry the wound completely Do not apply any of these products to the wound unless told to do so by your surgeon: lotions, creams, ointments (such as Neosporin), alcohol, hydrogen peroxide, powder, or sunscreen Protect your wound from sun exposure and avoid all sun if possible. If you do go out in the sun, wear a CLEAN, very loose fitting hat or scarf and immediately remove if when you are inside. Showering: Beginning the third day after surgery: If you are sent home with a dressing covering your incision, you may remove the dressing once you are home. Your wound may be left open to air after that. You may take a shower and wash your hair. Do not take a tub bath. Use baby shampoo and gently wash your hair and the incision. Then rinse it well with water. When drying off, use a clean towel. Very gently pat the wound dry. Do not rub with a towel. It is also okay to let the wound air dry. You can use a examining chair assembler on the lowest, coolest setting to help dry your incision after showering. Do not use a high heat setting to avoid burning the skin. [facility]* Nursing Notes - Aftab Gasca RN - 08/04/2022 7:10 PM EDT Brayan Jay MD 8B RM [address] Patient has a temp of 100.7 Aftab RN #[id number] Aftab Gasca RN [facility]03-18-2023 Note* Plan of Care - KARIN Ku - 08/03/2022 11:48 AM EDT Problem: BEADING SAWYER - Language Goal: Command Following Description: Patient will complete simple 1-step commands (minimum of x10) to 80% success with max cues as needed in order to improve direction following for functional gains in ability to participate more independently in care. Outcome: Ongoing Goal: Yes/No Response Description: Patient will answer y/n questions (minimum of x15) related to current situation/environment, to 100% success with min cues, after 2-3 sessions in order to improve ability to answer medical questions/questions related to care. Outcome: Ongoing Goal: Names Basic Objects/Pictures Description: Patient will name basic objects/pictures with 80% accuracy, across 1-2 session(s) given min assist to improve word-finding and functional communication. Outcome: Ongoing [facility]03-17-2023 Note* Plan of Care - Kiara Ariza PT - 08/02/2022 9:42 AM EDT Problem: PT - Mobility Goal: Ambulation Description: Pt will ambulate 45 feet with hemiwalker with minimal assistance to improve ability tonavigate home environment. Outcome: Ongoing Problem: PT - Transfers Goal: Supine <-> Sit Description: Pt will perform bed mobility with HOB raised and use of rail with supervision in orderto improve functional mobility and safety. Outcome: Ongoing Goal: Sit <-> Stand Description: Pt will perform sit to/from stand transfers with standby assistance with hemiwalker inorder to improve functional mobility and safety. Outcome: Ongoing [facility]03-17-2023 Note* Plan of Care - Natalia Khalil OT - 08/02/2022 8:50 AM EDT Problem: OT - Dressing Goal: Upper Body Dressing Description: Pt will complete UE dressing task Edge of bed with supervision for improved ability tocomplete self-care activities. Outcome: Ongoing Goal: Lower Body Dressing Description: Pt will complete LE dressing tasks with supervision for improved ability to complete self-care activities. Outcome: Ongoing Problem: OT - Cognition Goal: Cognition simple ADL Description: Pt will demonstrate improved cognition, completing simple ADL task for 8 minutes with no cues required to maintain attention, for improved safety and success at discharge destination. Outcome: Ongoing Problem: OT - Balance Goal: Balance - Standing Description: Pt will perform 6-8 minutes of functional ADL task in standing with a balance level ofcontact guard to promote safety and improved balance required for self-care activities. Outcome: Ongoing Problem: OT - Transfers Goal: Transfers Toilet/Bedside Commode Description: Pt will transfer to/from toilet/BSC with standby assistance for improved ability to safely complete ADLs. Outcome: Ongoing [facility]03-17-2023 Note* Plan of Care - Chapo Xavier RN - 08/02/2022 4:36 AM EDT Problem: Patient Care Overview Goal: Plan of Care Review Outcome: Ongoing Goal: Individualization & Mutuality Outcome: Ongoing Goal: Discharge Needs Assessment Out[facility]* Nursing Notes - Britni Craig RN - 08/01/2022 6:54 PM EDT On admission to [facility], from [place] a dual RN initial assessment of skin condition was performed by WILL Roche and Doron Seaman Rn. Skin Assessment: Skin not within defined limits. - Pressure Injury suspected: Yes Nate Score: 12 LDA Added:Yes Britni Craig RN [facility]03-16-2023 Note* Op Note - Eyad Mujica MD, PhD - 08/01/2022 11:09 AM EDT Operative Report DATE PERFORMED: 08/01/2022 PREOPERATIVE DIAGNOSIS: Left skull defect. POSTOPERATIVE DIAGNOSIS: Left skull defect. PROCEDURE: Autologous left cranioplasty measuring 15 x 17 cm. SURGEON(S): Eyad Mujica MD, PhD. ANESTHESIA: General anesthesia. COMPLICATIONS: None. SPECIMEN: None. Dr. Taj Osorio was available should I have needed his help. BRIEF CLINICAL HISTORY: Mr. Gonzales is an unfortunate 36-year-old man who suffered a malignant left MCA infarction after attempted aneurysm treatment approximately two months ago. He has made a fair neurologic recovery and other than some mild confusion and right hand weakness is doing fairly well. His edema has resolved and he comes back now for cranioplasty. PROCEDURE IN DETAIL: After obtaining written informed consent, the patient was brought to the operating room and positioned supine on the OR table. All pressure points were padded. After induction of general anesthesia, his head was shaved with clippers and the left shoulder bump placed. His head was placed into a horseshoe. The skin on the left side of the scalp was then shaved, cleaned prepped and draped in usual fashion. A time-out was performed. I retrieved the patient's bone flap from the freezer and spent 20 minutes scrubbing it. There were actually two pieces. I scrubbed in chlorhexidine in a sterile fashion and scraped off all the soft tissue. I then placed it into the back table in a basin of iodine. We turned our attention to the skull defect. The prior incision was opened using scissors to spread the skin and cut the galea. These were two C-shaped incisions first with a typical aneurysm approach and then the second that extended more posteriorly. The skin and muscle elevated as a single flap. There was an excellent plane between the galea and the underlying dura. Hemostasis obtained with bipolar electrocautery and FloSeal. The wound was copiously irrigated. Satisfied with the hemostasis, the bone flap was reassembled using titanium plates and screws and then reattached to the skull. It fit in quite nicely. There really was no significant brain edema or need for brain relaxation techniques. The wound was again irrigated. A 10-[place]ian PVC drain was tunneled through a separate stab incision and placed underneath the temporalis muscle. The muscle was then closed with a layer of Vicryl stitches. The galea was closed with a layer of Vicryl stitches and skin closed with mariano. A sterile dressing was applied. The patient's PEG tube was removed. I had discussed this with the patient and his family, as well as Dr. Elena who had placed original tube and since the patient no longer needs it seemed like a good time to take it out while he was still asleep. A sterile dressing was applied. Anesthesia was reversed, and Mr. Gonzales was extubated without difficulty. He was transferred to recovery in satisfactory condition. All sponge and needle counts were correct. Dictated By: Eyad Mujica MD, PhD Eyad Mujica MD, PhD ATTENDING CJP/MedQ JOB: [id number] DOC: [id number] [facility]03-16-2023 Note* Brief Op Note - Eyad Mjuica MD, PhD - 08/01/2022 10:21 AM EDT Romeo Gonzales ([id number]) PRE OPERATIVE DIAGNOSIS 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] POST OPERATIVE DIAGNOSIS Post-Op Diagnosis Codes: * 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] PROCEDURE PERFORMED Procedure(s) (LRB): LEFT CRANIOPLASTY (Left) PRIMARY CLOSURE Yes INTRAOPERATIVE FINDINGS 15 x 17 cm left skull defect SURGEON Surgeon(s) and Role: * Eyad Mujica MD, PhD - Primary ANESTHESIOLOGIST Anesthesiologist: Jorge Starr MD BEAD FORMING MACHINE OPERATOR: Nate Peck APRN-BEAD FORMING MACHINE OPERATOR Drum Drier: VIKTORIA Johnson SURGICAL STAFF Industrial Mechanic: Alicia Nassar RN; Nate Pearl RN Scrub Person: Alecia Shields Resident Assisting: Harsha Persaud MD COMPLICATIONS None ESTIMATED BLOOD LOSS 200 ml SPECIMENS No specimen sent * No specimens in log * Eyad Mujica MD, PhD August 01, 2022 10:21 AM [facility]03-16-2023 History and physical note* Eyad Mujica MD, PhD - 08/01/2022 8:18 AM EDT PERIOPERATIVE SURGICAL HISTORY AND PHYSICAL UPDATE Pre-op Diagnoses: 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] Procedure(s): LEFT CRANIOPLASTY Surgeon(s): Surgeon(s) and Role: * Eyad Mujica MD, PhD - Primary History and Physical Update: Blood pressure 130/88, pulse 77, temperature 98 F (36.7 C), temperature source Infrared, resp. rate18, height 1.676 m (5' 6), weight 102.1 kg (225 lb), SpO2 99 %. I have reviewed Romeo Gonzales's medical, surgical and other pertinent history, and I have updated the medication and allergy information in the computerized patient record. I have examined the patient, reviewed the previous H&P completed on date (07/30/2022) and there are no changes. Today's surgical history and physical update was completed by Eyad Mujica MD, PhD, 08/01/2022, 8:18 AM. 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 rate18, height 1.676 m (5' 6), weight 102.1 kg (225 lb), SpO2 99 %. I have reviewed Romeo Gonzales's medical, surgical and other pertinent history, and I have updated the medication and allergy information in the computerized patient record. I have examined the patient, reviewed the previous H&P completed on date (07/30/2022) and there are no changes. Today's surgical history and physical update was completed by Eyad Mujica MD, PhD, 08/01/2022, 8:18 AM. [facility] this [facility]* Certification - Pierre Cabrales MD - 07/31/2022 8:23 PM EDT I certify that this patient requires inpatient services at this time. I anticipate the expected length of stay will include at least two midnights. Current treatment plan includes cranioplasty. Plans for post hospitalization care will be discharge to inpatient rehab facility. [facility]03-14-2023 History and physical note* Eyad Mujica MD, PhD - 07/30/2022 1:00 PM EDT Mr. Gonzales is a 36-year-old man with history of hypertension and left MCA aneurysm who comes in for discussion of left cranioplasty. He required a left hemicraniectomy for a malignant left MCA infarctsuffered after attempted treatment of a symptomatic left MCA aneurysm. He did fairly well and afterPEG placement went to a SNF. He was also diagnosed with a right brachial DVT and started on apixaban prior to discharge. He had a follow up CT head today that shows expected encephalomalacia and a sunken flap on the left. The 12 point review of systems is negative except as noted in the history of present illness. His past medical history is remarkable for hypertension and stroke. He has no drug allergies. He is taking apixaban, atorvastatin, carvedilol, and lisinopril. He doesn t smoke cigarettes, drink alcohol, or use recreational drugs. His family history is not contributory. On physical exam he is awake and alert, oriented to self and situation, but not location. He names simple objects correctly. He has a dense right upper extremity plegia. He has excellent strength in his left arm and legs. His eyes move normally. His chest is clear to auscultation. His heart has a regular rate and rhythm. His abdomen is soft and non tender. His incision has healed. His scalp is sunken. We will proceed with left cranioplasty on . He won't need to continue wearing the helmet after the surgery. He should hold the apixiban starting today and I hope to restart that as soon as possible after the surgery. [facility]03-14-2023 History and physical note* Eyad Mujica MD, PhD - 07/30/2022 1:00 PM EDT Mr. Gonzales is a 36-year-old man with history of hypertension and left MCA aneurysm who comes in for discussion of left cranioplasty. He required a left hemicraniectomy for a malignant left MCA infarctsuffered after attempted treatment of a symptomatic left MCA aneurysm. He did fairly well and afterPEG placement went to a SNF. He was also diagnosed with a right brachial DVT and started on apixaban prior to discharge. He had a follow up CT head today that shows expected encephalomalacia and a sunken flap on the left. The 12 point review of systems is negative except as noted in the history of present illness. His past medical history is remarkable for hypertension and stroke. He has no drug allergies. He is taking apixaban, atorvastatin, carvedilol, and lisinopril. He doesn t smoke cigarettes, drink alcohol, or use recreational drugs. His family history is not contributory. On physical exam he is awake and alert, oriented to self and situation, but not location. He names simple objects correctly. He has a dense right upper extremity plegia. He has excellent strength in his left arm and legs. His eyes move normally. His chest is clear to auscultation. His heart has a regular rate and rhythm. His abdomen is soft and non tender. His incision has healed. His scalp is sunken. We will proceed with left cranioplasty on . He won't need to continue wearing the helmet after the surgery. He should hold the apixiban starting today and I hope to restart that as soon as possible after the surgery. documented in this encounterOS[facility] noteNo assessment information availableWWexner Medical Center Work Phone: Evaluation note* Diagnosis Acquired skull defect- Primary Other specified acquired deformity of head Acquired skull defect Other specified acquired deformity of head [facility] encounter [facility]* Diagnosis Aphasia as late effect of cerebrovascular accident- Primary Aphasia, late effect of cerebrovascular disease Aphasia as late effect of cerebrovascular accident Aphasia, late effect of cerebrovascular disease Acquired skull defect Other specified acquired deformity of head Cerebrovascular accident (CVA), unspecified mechanism Acquired skull defect Other specified acquired deformity of head Acute deep vein thrombosis (DVT) of brachial vein of right upper extremity Aneurysm of middle cerebral artery Cerebral aneurysm, nonruptured Dysphagia as late effect of cerebrovascular accident (CVA) Hemiparesis affecting right side as late effect of stroke Hemiplegia affecting unspecified side, late effect of cerebrovascular disease Hypertension Unspecified essential hypertension Hyperlipidemia Other and unspecified hyperlipidemia 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 of 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 Obesity (BMI 30-39.9) Obesity, unspecified Urinary incontinence without sensory awareness Incontinence without sensory awareness Full incontinence of feces [facility] Diagnosis Onset Date Resolution Status Cognitive dysfunction due to stroke acute Debility acute Kaylene-inattention acute Right foot drop acute 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 chronic DVT (deep venous thrombosis) chronic Fecal incontinence chronic Hypertension chronic Urinary incontinence chronic Acquired skull defect resolv ed Acute blood loss anemia reso lved Cerebral edema resolved Conjunctivitis resolved Dysphagia resolved Elevated blood sugar resolve d Hyponatremia resolved Presence of externally remov able percutaneous endoscopic gastrostomy (PEG) tube resolv ed Thrombocytosis resolved Torticollis, acquired resolv ed Abnormal LFTs acute Aphasia as late effect of stroke acute Cognitive dysfunction due to stroke acute Debility acute Elevated hemoglobin A1c acut e Generalized weakness acute Kaylene-inattention acute Hemiparesis affecting right side as late effect of cerebrovascular accident acute Obesity (BMI 30.0-34.9) acut e Torticollis, acquired acute 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 chronic DVT (deep venous thrombosis) chronic Fecal incontinence chronic Hyperlipidemia chronic Hypertension chronic Urinary incontinence chronic [facility] Work Phone: Evaluation note* Diagnosis Onset Date Resolution Status Cognitive dysfunction due to stroke acute Debility acute Kaylene-inattention acute Right foot drop acute 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 chronic Fecal incontinence chronic Urinary incontinence chronic Acquired skull defect resolv ed Acute blood loss anemia reso lved Cerebral edema resolved Conjunctivitis resolved Dysphagia resolved Elevated blood sugar resolve d Hypertension resolved Hyponatremia resolved Presence of externally remov able percutaneous endoscopic gastrostomy (PEG) tube resolv ed Thrombocytosis resolved Torticollis, acquired resolv ed Abnormal LFTs acute Aphasia as late effect of stroke acute Cognitive dysfunction due to stroke acute Debility acute Elevated hemoglobin A1c acut e Kaylene-inattention acute Hemiparesis affecting right side as late effect of cerebrovascular accident acute Obesity (BMI 30.0-34.9) acut e Torticollis, acquired acute Current use of retirement anticoagulation chronic Fecal incontinence chronic Urinary incontinence chronic Hypertension resolved [facility] Work Phone: Evaluation note* Diagnosis Acquired skull defect- Primary Other specified acquired deformity of head [facility] Diagnosis Onset Date Resolution Status Abnormal LFTs acute Aphasia as late effect of stroke acute Cognitive dysfunction due to stroke acute Debility acute Elevated hemoglobin A1c acut e Kaylene-inattention acute Hemiparesis affecting right side as late effect of cerebrovascular accident acute Obesity (BMI 30.0-34.9) acut e Torticollis, acquired acute Current use of retirement anticoagulation chronic Fecal incontinence chronic Urinary incontinence chronic Hypertension resolved [facility] Work Phone: Evaluation note* Diagnosis Onset Date Resolution Status Admit Date Closed fracture of right patella acu te October 14, 2024 1:26pm [facility] Work Phone: Hospital Discharge instructions Additional Instructions [facility] Reason for referral (narrative)No reason for referral [facility] Reason for visit Narrative* Auth/Cert Specialty Diagnoses / Procedures Referred By Adam menjivar Referred To Contact Diagnoses Acquired skull defect 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] Procedures VA REPAIR SKULL DEFECT,>5CM CRANIOPLASTY FOR SKULL DEFECT Eyad Mujica MD, PhD [address] [place] [phone] [facility] [address] [place] [id number] Referral ID Status Reason Start Date Expiration Date Visits Re quested Visits Authorized [id number] 1 1 [facility] Chief Complaint and Reason for Visit Chief Complaint WEAKNESS Chief Complaint WEAKNESS STROKE STROKE STROKE STROKE STROKE STROKE STROKE STROKE STROKE STROKE STROKE STROKE STROKE STROKE STROKE STROKE STROKE STROKE STROKE STROKE Debility due to craniotomy to replace bone flap AQUIRED SKULL DEFECT AQUIRED SKULL DEFECT AQUIRED SKULL DEFECT AQUIRED SKULL DEFECT AQUIRED SKULL DEFECT AQUIRED SKULL DEFECT Reason for Visit Cognitive dysfunctio n due to stroke Debility Kaylene-inattention Right foot drop Current use of retirement anticoagulation DVT (deep venous thrombosis) Fecal incontinence Hypertension Urinary incontinence Acquired skull defect Acute blood loss anemia Cerebral edema Conjunctivitis Dysphagia Elevated blood sugar Hyponatremia Presence of externally removable percutaneous endoscopic gastrostomy (PEG) tube Thrombocytosis Torticollis, acquired Abnormal LFTs Aphasia as late effect of stroke Cognitive dysfunction due to stroke Debility Elevated hemoglobin A1c Generalized weakness Kaylene-inattention Hemiparesis affecting right side as late effect of cerebrovascular accident Obesity (BMI 30.0-34.9) Torticollis, acquired 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 DVT (deep venous thrombosis) Fecal incontinence Hyperlipidemia Hypertension Urinary incontinence Chief Complaint WEAKNESS STROKE STROKE STROKE STROKE STROKE STROKE STROKE STROKE STROKE STROKE STROKE STROKE STROKE STROKE STROKE STROKE STROKE STROKE STROKE STROKE Debility due to craniotomy to replace bone flap AQUIRED SKULL DEFECT AQUIRED SKULL DEFECT AQUIRED SKULL DEFECT AQUIRED SKULL DEFECT AQUIRED SKULL DEFECT AQUIRED SKULL DEFECT Debility due to craniotomy to replace bone flap DVT R BRACHIAL VEIN DVT R BRACHIAL VEIN ACQUIRED SKULL DEFECT/RX HERE Reason for Visit Cognitive dysfunctio n due to stroke Debility Kaylene-inattention Right foot drop Current use of retirement anticoagulation Fecal incontinence Urinary incontinence Acquired skull defect Acute blood loss anemia Cerebral edema Conjunctivitis Dysphagia Elevated blood sugar Hypertension Hyponatremia Presence of externally removable percutaneous endoscopic gastrostomy (PEG) tube Thrombocytosis Torticollis, acquired Abnormal LFTs Aphasia as late effect of stroke Cognitive dysfunction due to stroke Debility Elevated hemoglobin A1c Kaylene-inattention Hemiparesis affecting right side as late effect of cerebrovascular accident Obesity (BMI 30.0-34.9) Torticollis, acquired Current use of retirement anticoagulation Fecal incontinence Urinary incontinence Hypertension Chief Complaint STROKE STROKE STROKE STROKE STROKE STROKE STROKE STROKE STROKE STROKE STROKE STROKE Debility due to craniotomy to replace bone flap AQUIRED SKULL DEFECT AQUIRED SKULL DEFECT AQUIRED SKULL DEFECT AQUIRED SKULL DEFECT AQUIRED SKULL DEFECT AQUIRED SKULL DEFECT Debility due to craniotomy to replace bone flap DVT R BRACHIAL VEIN DVT R BRACHIAL VEIN Encounter for general adult medical examination wi ACQUIRED SKULL DEFECT/RX HERE Reason for Visit Cognitive dysfunctio n due to stroke Debility Kaylene-inattention Right foot drop Current use of retirement anticoagulation Fecal incontinence Urinary incontinence Acquired skull defect Acute blood loss anemia Cerebral edema Conjunctivitis Dysphagia Elevated blood sugar Hypertension Hyponatremia Presence of externally removable percutaneous endoscopic gastrostomy (PEG) tube Thrombocytosis Torticollis, acquired Abnormal LFTs Aphasia as late effect of stroke Cognitive dysfunction due to stroke Debility Elevated hemoglobin A1c Kaylene-inattention Hemiparesis affecting right side as late effect of cerebrovascular accident Obesity (BMI 30.0-34.9) Torticollis, acquired 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 Fecal incontinence Urinary incontinence Hypertension Chief Complaint Debility due to cran iotomy to replace bone flap AQUIRED SKULL DEFECT AQUIRED SKULL DEFECT Debility due to craniotomy to replace bone flap DVT R BRACHIAL VEIN DVT R BRACHIAL VEIN Encounter for general adult medical examination wi ACQUIRED SKULL DEFECT/RX HERE abd pain Reason for Visit Abnormal LFTs Aphasia as late effect of stroke Cognitive dysfunction due to stroke Debility Elevated hemoglobin A1c Kaylene-inattention Hemiparesis affecting right side as late effect of cerebrovascular accident Obesity (BMI 30.0-34.9) Torticollis, acquired 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 Fecal incontinence Urinary incontinence Hypertension Chief Complaint abd pain ACQUIRED SKULL DEFECT/RX HERE Chief Complaint abd pain ACQUIRED SKULL DEFECT/RX HERE FALL, TRAUMA Chief Complaint abd pain ACQUIRED SKULL DEFECT/RX HERE FALL, TRAUMA head injury Chief Complaint ACQUIRED SKULL DEFEC T/RX HERE FALL, TRAUMA head injury I67.1 Cerebral aneurysm, nonruptured Chief Complaint HEMIPARESIS. RX HERE Chief Complaint Admit Date FALL October 09, 2024 4:12p m FALL October 09, 2024 5:33p m RIGHT KNEE October 14, 2024 1:26p m Reason for Visit Admit Date Closed fracture of right patella September 1:26pm Chief Complaint Admit Date FALL October 09, 2024 4:12p m FALL October 09, 2024 5:33p m RIGHT KNEE October 14, 2024 1:26p m Right patella open reduction internal fi xation October 27, 2024 10:18am Right patella open reduction internal fi xation October 27, 2024 12:37pm Right patella open reduction internal fi xation October 27, 2024 12:42pm Right patella open reduction internal fi xation October 29, 2024 8:59am Reason for Visit Admit Date Closed fracture of right patella September 1:26pm Patella fracture October 27, 2024 12:3 7pm Status post open reduction a nd internal fixation (ORIF) of fracture of righ October 27, 2024 12:37pm Advance Directives Advance Directive Response Recorded Date/ Time Living Will Yes May 22 8:40am Power of Package Wrapper Yes May 22, 2 023 8:40am Name of Medical Power of Package Wrapper JOAN- SISTER May 22, 2022 8:40am Latest Code Status on File Code Status Date Activated Date Inactivated Comments DNRCC-ARREST 06/07/2022 11:30 AM DNR-CCA e stablished on 05/30/2022 Suspended for PEG on 06/04/2022. Discussed with family at bedside on 06/07/2022 and they have made no decision to change at this time. Question Answer Comments Collaborating Physician: EYAD MUJICA Code Status History Code Status Date Activated Date Inactivated Comments DNR Suspension 06/04/2022 9:13 AM 06/07/2022 11:30 AM DN R suspension obtained through mother (POA) DNRCC-ARREST 05/30/2022 1:20 PM 06/04/2022 9:13 AM I hav e discussed Romeo E Christian's Do Not Resuscitate wishes with Parents and siblings. They are in agreement with this code status. Question Answer Comments Collaborating Physician: DAVID KUO Full Code 05/22/2022 2:15 PM 05/30/2022 1:20 PM Latest Code Status on File Code Status Date Activated Date Inactivated Comments DNRCC-ARREST 06/07/2022 11:30 AM DNR-CCA e stablished on 05/30/2022 Suspended for PEG on 06/04/2022. Discussed with family at bedside on 06/07/2022 and they have made no decision to change at this time. Question Answer Comments Collaborating Physician: EYAD MUJICA Code Status History Code Status Date Activated Date Inactivated Comments DNR Suspension 06/04/2022 9:13 AM 06/07/2022 11:30 AM DN R suspension obtained through mother (POA) DNRCC-ARREST 05/30/2022 1:20 PM 06/04/2022 9:13 AM I hav e discussed Romeo E Christian's Do Not Resuscitate wishes with Parents and siblings. They are in agreement with this code status. Question Answer Comments Collaborating Physician: DAVID KUO Full Code 05/22/2022 2:15 PM 05/30/2022 1:20 PM Latest Code Status on File Code Status Date Activated Date Inactivated Comments DNRCC-ARREST 08/02/2022 7:29 AM I have dis cussed Romeo E Christian's Do Not Resuscitate wishes with family. They are in agreement with this code status. Code Status History Code Status Date Activated Date Inactivated Comments Full Code 08/01/2022 6:45 AM 08/01/2022 3:29 PM DNRCC-ARREST 06/07/2022 11:30 AM 08/01/2022 6:45 AM DNR- CCA established on 05/30/2022 Suspended for PEG on 06/04/2022. Discussed with family at bedside on 06/07/2022 and they have made no decision to change at this time. Question Answer Comments Collaborating Physician: EYAD MUJICA DNR Suspension 06/04/2022 9:13 AM 06/07/2022 11:30 AM DN R suspension obtained through mother (POA) DNRCC-ARREST 05/30/2022 1:20 PM 06/04/2022 9:13 AM I hav e discussed Romeo Gonzales's Do Not Resuscitate wishes with Parents and siblings. They are in agreement with this code status. Question Answer Comments Collaborating Physician: DAVID KUO Advance Directive Response Recorded Date/ Time Name of Medical Power of Package Wrapper JOAN- SISTER May 22, 2022 9:40am Name of Medical Power of Package Wrapper Pelon Gonzales, father June 10, 2022 11:49am Name of Medical Power of Package Wrapper Pelon Christian, Deana Lopezy, [facility] Tha/Deana-finance August 05, 2022 4:50pm Living Will No August 06, 2022 4:19pm Power of Package Wrapper No August 06 4:19pm Latest Code Status on File Code Status Date Activated Date Inactivated Comments DNRCC-ARREST 08/02/2022 7:29 AM I have dis cussed Romeo Gonzales's Do Not Resuscitate wishes with family. They are in agreement with this code status. Code Status History Code Status Date Activated Date Inactivated Comments Full Code 08/01/2022 6:45 AM 08/01/2022 3:29 PM DNRCC-ARREST 06/07/2022 11:30 AM 08/01/2022 6:45 AM DNR- CCA established on 05/30/2022 Suspended for PEG on 06/04/2022. Discussed with family at bedside on 06/07/2022 and they have made no decision to change at this time. Question Answer Comments Collaborating Physician: EYAD MUJICA DNR Suspension 06/04/2022 9:13 AM 06/07/2022 11:30 AM DN R suspension obtained through mother (POA) DNRCC-ARREST 05/30/2022 1:20 PM 06/04/2022 9:13 AM I rafat e discussed Romeo Gonzales's Do Not Resuscitate wishes with Parents and siblings. They are in agreement with this code status. Question Answer Comments Collaborating Physician: DAVID KUO Advance Directive Response Recorded Date/ Time Name of Medical Power of Package Wrapper Pelon Gonzales, father June 10, 2022 11:49am Name of Medical Power of Package Wrapper Pelon Gonzales, Deana Christian, and Gege Christian-healthcare. Tha/Deana-finance August 05, 2022 4:50pm Living Will No August 06, 2022 4:19pm Power of Package Wrapper No August 06 4:19pm Advance Directive Response Recorded Date/ Time Name of Medical Power of Package Wrapper Pelon Gonzales, Deana Christian, and Gege Christian-healthcare. Tha/Deana-finance August 05, 2022 4:50pm Name of Medical Power of Package Wrapper pelon gonzales December 14, 2022 3:42am Living Will Yes December 14, 2022 3:42am Power of Package Wrapper Yes December 14 3:42am Advance Directive Response Recorded Date/ Time Name of Medical Power of Package Wrapper pelon gonzales December 14, 2022 3:42am Living Will Yes December 14, 2022 3:42am Power of Package Wrapper Yes December 14 3:42am Advance Directive Response Recorded Date/ Time Name of Medical Power of Package Wrapper pelon gonzales December 14, 2022 2:42am Living Will Yes December 14, 2022 2:42am Power of Package Wrapper Yes December 14 2:42am Advance Directive Response Recorded Date/ Time Name of Medical Power of Package Wrapper pelon gonzales December 14, 2022 2:42am Name of Medical Power of Package Wrapper Pelon Gonzales April 08, 2023 5:27pm Living Will Yes April 08, 2 023 5:27pm Power of Package Wrapper Yes April 08, 2023 5:27pm Advance Directive Response Recorded Date/ Time Name of Medical Power of Package Wrapper Pelon Gonzales April 08, 2023 5:27pm Living Will Yes April 08, 2 023 5:27pm Power of Package Wrapper Yes April 08, 2023 5:27pm Advance Directive Response Recorded Date/ Time Living Will Yes April 08, 2 023 6:27pm Power of Package Wrapper Yes April 08, 2023 6:27pm Advance Directive Response Recorded Date/ Time Do you have a Healthcare Power of Package Wrapper? Yes October 09, 2024 4:23pm Advance Directive Response Recorded Date/ Time Do you have a Healthcare Power of Package Wrapper? Yes October 09, 2024 4:23pm Do you have a Healthcare Power of Package Wrapper? Yes October 27, 2024 2:32pm Summary Purpose Family History No Family History Records FoundNo Family History Records FoundNo Family History Records Found Reason for Referral Specialty Diagnoses / Procedures Referred By Adam menjivar Referred To Contact Social Work Diagnoses Aphasia as late effect of cerebrovascular accident Acquired skull defect Tiffanie Ronquillo, FISCAL ASSISTANT-CONCIERGE MANAGER [address] [place] [address] Referral ID Status Reason Start Date Expiration Date V isits Requested Visits Authorized [id number] New Request 08/05/2022 08/30/2023 1 1 Additional Source Comments Goals (unrecognized section and content) Goals may be documented in a n alternate sectionGoals may be documented in an alternate sectionGoals may be documented in an alternate sectionGoals may be documented in an alternate sectionGoals may be documented in an alternate sectionGoals may be documented in an alternate sectionGoals may be documented in an alternate sectionGoals may be documented in an alternate section (unrecognized sect ion and content) No Status Records FoundNo Status Records FoundNo Status Records Found INFORMATION SOURCE (unrecogn ized section and content) DATE CREATED AUTHOR 07/26/2022 [facility] ([place]) DATE CREATED AUTHOR AUTHOR'S ORGANIZ ATION 04/15/2023 [facility] DATE CREATED AUTHOR AUTHOR'S OR[facility]IZ ATION [facility] Reason for Visit (unrecogniz ed section and content) Reason Comments Follow-up Specialty Diagnoses / Procedures Referred By Contac t Referred To Contact Diagnoses Acquired skull defect Procedures CT STEALTH HEAD WITHOUT CONTRAST CT HEAD WITHOUT CONTRAST [facility] CT SCAN,HEAD/BRAIN,W/O CONTRAST Tiffanie Hayden, FISCAL ASSISTANT-CONCIERGE MANAGER [address] [place] [address] Referral ID Status Reason Start Date Expiration Date Visits Re quested Visits Authorized [id number] Closed 05/30/2022 06/24/2023 1 1 Care Teams (unrecognized sec tion and content) Director [employer] Relationship Specialty Start Date End Date Ander Nicholson DO [address] [place] [address] [place] [address] PCP - General Family Medicine 07/22/22 Director [employer] Relationship Specialty Start Date End Date Ander Nicholson DO [address] [place] [address] [place] [address] PCP - General Family Medicine 07/22/22 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 Ander Nicholson DO Family Provider Active Dr. Ander Nicholson DO Primary Care Provider Active Team Status: Active Member Role Status Dates Dr. Ander Nicholson DO Primary Care Provider Active Dr. Kristyn Wallace , DO Admit Pr ovider, Attending Provider, Other Provider Active Team Status: Inactive Member Role Status Dates Dr. Ander Nicholson DO Primary Care Provider Active Dr. Armen Alexis MD Attending Provider, Emergency Provider Active Team Status: Inactive Member Role Status Dates Dr. Ander Nicholson DO Primary Care Provider Active Dr. Kristyn Wallace , DO Admit Provider, Attend ing Provider Active Team Status: Inactive Member Role Status Dates Dr. Ander Nicholson DO Primary Care Provider, Attendin g Provider Active Team Status: Active Member Role Status Dates Dr. Ander Nicholson DO Primary Care Provider Active Dr. Yovany Hadley MD Attending Provider Active Team Status: Active Member Role Status Dates Dr. Ander Nicholson DO Primary Care Provider Active Dr. Kristyn Wallace DO Attendin g Provider, Referring Provider, Other Provider Active Team Status: Active Member Role Status Dates Dr. Ander Nicholson DO Primary Care Provider Active Dr. Kristyn Wallace , DO Attending Provider, Re ferring Provider Active Team Status: Inactive Member Role Status Dates Dr. Ander Nicholson DO Primary Care Provider Active Dr. 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 Ander Nicholson DO Primary Care Provider Active Dr. Yovany Hadley MD Attending Provider Active Dr. Kristyn Wallace DO Referring Provider Act tadeo Team Status: Inactive Member Role Status Dates Dr. Ander Nicholson DO Primary Care Prov ider, Attending Provider, Referring Provider Active Team Status: Inactive Member Role Status Dates Dr. Ander Nicholson DO Primary Care Provider Active Dr. Armen Alexis MD Emergency Provider Active Team Status: Active Member Role Status Dates Dr. Ander Nicholson DO Primary Care Prov ider, Attending Provider, Referring Provider Active Team Status: Inactive Member Role Status Dates Dr. Ander Nicholson DO Primary Care Provider Active Dr. Yovany Wheeler , DO Emergency Provider Active Team Status: Inactive Member Role Status Dates Dr. Ander Nicholson DO Primary Care Provider Active Dr. Yovany Wheeler , DO Attending Provider, Emergency P axel Active Team Status: Inactive Member Role Status Dates Dr. Ander Nicholson DO Primary Care Provider Active FABRIZIO MORENO Attending Provider Active Team Status: Active Member Role Status Dates Dr. Ander Nicholson DO Primary Care Provider Active Team Status: Inactive Member Role Status Dates Dr. Ander Nicholson DO Primary Care Provider Active Start: October 09, 2024 End: October 09, 2024 Dr. Fadia Warren DO Emergency Provider Active Start: October 09, 2024 End: October 09, 2024 Team Status: Active Member Role Status Dates Dr. Ander Nicholson DO Primary Care Provider Active Start: October 09, 2024 Dr. Fadia Warren DO Emergency Provider Active Start: October 09, 2024 Adonay Alexander MD Attending Provider Active St art: October 09, 2024 Team Status: Inactive Member Role Status Dates Dr. Ander Nicholson DO Primary Care Provider Active Start: October 14, 2024 End: October 14, 2024 Dr. Ander Nicholson DO Referring Provider Active Start: October 14, 2024 End: October 14, 2024 Adonay Alexander MD Attending Provider Active St art: October 14, 2024 End: October 14, 2024 Team Status: Inactive Member Role Status Dates Dr. Ander Nicholson DO Primary Care Provider Active Start: October 09, 2024 End: October 09, 2024 Dr. Fadia Warren DO Attending Provider Active Start: October 09, 2024 End: October 09, 2024 Dr. Fadia Warren DO Emergency Provider Active Start: October 09, 2024 End: October 09, 2024 Team Status: Active Member Role Status Dates Dr. Ander Nicholson DO Primary Care Provider Active Start: October 27, 2024 Adonay Alexander MD Attending Provider Active St art: October 27, 2024 Adonay Alexander MD Referring Provider Active St art: October 27, 2024 Adonay Alexander MD Other Provider Active Start: October 27, 2024 Dr. Vinnie Felder MD Other Provider Active Star t: October 27, 2024 Team Status: Inactive Member Role Status Dates Dr. Ander Nicholson DO Primary Care Provider Active Start: October 27, 2024 End: October 29, 2024 Adonay Alexander MD Admit Provider Active Start: October 27, 2024 End: October 29, 2024 Adonay Alexander MD Attending Provider Active St art: October 27, 2024 End: October 29, 2024 Adonay Alexander MD Referring Provider Active St art: October 27, 2024 End: October 29, 2024 Dr. Vinnie Felder MD Other Provider Active Star t: October 27, 2024 End: October 29, 2024 Dr. Jerry Lujan DO Other Provider Active Start: October 27, 2024 End: October 29, 2024 Team Status: Active Member Role Status Dates Dr. Ander Nicholson DO Primary Care Provider Active Start: October 27, 2024 Adonay Alexander MD Admit Provider Active Start: October 27, 2024 Adonay Alexander MD Referring Provider Active St art: October 27, 2024 Adonay Alexander MD Other Provider Active Start: October 27, 2024 Dr. Vinnie Felder MD Other Provider Active Star t: October 27, 2024 Dr. Jerry Lujan DO Attending Provider Active Start: October 27, 2024 Dr. Jerry Lujan DO Other Provider Active Start: October 27, 2024 Team Status: Active Member Role Status Dates Dr. Ander Nicholson DO Primary Care Provider Active Start: October 29, 2024 Adonay Alexander MD Admit Provider Active Start: October 29, 2024 Adonay Alexander MD Attending Provider Active St art: October 29, 2024 Adonay Alexander MD Referring Provider Active St art: October 29, 2024 Adonay Alexander MD Other Provider Active Start: October 29, 2024 Dr. Vinnie Felder MD Other Provider Active Star t: October 29, 2024 Dr. Jerry Lujan DO Other Provider Active Start: October 29, 2024 Scheduled Active and Recently Administ ered Medications (unrecognized section and content) Medication Order 08/03/2022 08/04/2022 08/05/2022 apixaban (ELIQUIS) tablet 5 mg 5 mg, Per G Tube, EVERY 12 HOURS, First dose (after last modification) on Fri08/05/22 at 2100, Until Discontinued, Due to the rapid onset of action of apixaban, no overlap is needed with other anticoagulants (e.g. enoxaparin, heparin)., Indications: Venous Thromboembolism Atorvastatin (LIPITOR) tablet 20 mg 20 mg, Oral, DAILY AT BEDTIME, First dose on Carie 08/01/22 at 2100, Until Discontinued, Post-op/Post-Proc 2047 (Given - Provider: Aftab Gasca RN) 2014 (Given - Provider: Aftab Gasca RN) carveDILOL (COREG) tablet 3.125 mg 3.125 mg, Oral, EVERY 12 HOURS, First dose on Carie 08/01/22 at 2100, Until Discontinued, , Post-op/Post-Proc 0838 (Given - Provider: Praveena Goff RN)204 (Given - Provider: Aftab Gasca RN) 0814 (Given - Provider: Justina Saunders RN)2014 (Given - Provider: Aftab Gasca RN) 0906 (Given - Provider: Ann Finn RN) Docusate (COLACE) capsule 100 mg 100 mg, Oral, 2 TIMES DAILY, First dose on Carie 08/01/22 at 1700, Until Discontinued, Post-op/Post-Proc 0845 (Not Given - Provider: Praveena Goff RN - Reason: Other - Comment: Pt not able to swallow)1628 (Not Given - Provider: Praveena Goff RN - Reason: Patient/family refused - Comment: Patient not able to swallow) 0814 (Given - Provider: Justina Saunders RN)174 (Given - Provider: Aftab Gasca RN) 09 (Given - Provider: Ann Finn RN) Enoxaparin Sodium (LOVENOX) injection 40 mg (CANCELED) 40 mg, Subcutaneous, EVERY 24 HOURS, First dose on Fri08/02/22 at 0900, Until Discontinued, , Indications: DVT/PE prophylaxis, Post-op/Post-Proc 0837 (Given - Provider: Praveena Goff RN) 0814 (Given - Provider: Justina Saunders RN) 0906 (Given - Provider: Ann Finn, WILL) magnesium oxide (MAG-OX) tablet 400 mg (COMPLETED) 400 mg, Oral, ONCE, 1 dose, On 08/03/22 at 0645 0614 (Given - Provider: Aftab Gasca RN) magnesium oxide (MAG-OX) tablet 400 mg (COMPLETED) 400 mg, Oral, ONCE, 1 dose, On 08/04/22 at 0645 0632 (Given - Provider: Aftab Gasca RN) Polyethylene glycol (MIRALAX) packet 17 g 17 g, Oral, DAILY, First dose on 08/04/22 at 1300, Until Discontinued 1314 (Given - Provider: Justina Saunders RN) 09 (Given - Provider: Ann Freedman, RN) Senna (SENOKOT) tablet 8.6 mg 8.6 mg, Oral, DAILY, First dose on Fri08/02/22 at 0900, Until Discontinued, Post-op/Post-Proc 0838 (Given - Provider: Praveena Goff RN) 0814 (Given - Provider: Justina Saunders, WILL) 09 (Given - Provider: Ann Finn, WILL) PRN Medication Order 08/03/2022 08/04/2022 08/05/2022 Acetaminophen (TYLENOL) oral solution 650 mg(Linked Group 1) 650 mg, Oral, EVERY 4 HOURS NEEDED, Starting on Carie 08/01/22 at 1527, Until 08/05/22 at 1629, Mild Pain, Maximum dose of acetaminophen is 4000 mg from all sources in 24 hours., Post-op/Post-Proc 816 (See Alternative - Provider: Justina Saunders RN)2014 (See Alternative - Provider: Aftab Gasca, WILL) Acetaminophen (TYLENOL) oral solution 650 mg(Linked Group 1) 650 mg, Per NG tube, EVERY 4 HOURS NEEDED, Starting on Carie 08/01/22 at 1527, Until 08/05/22 at 1629, Mild Pain, Maximum dose of acetaminophen is 4000 mg from all sources in 24 hours., Post-op/Post-Proc 816 (See Alternative - Provider: Justina Saunders RN)2014 (See Alternative - Provider: Aftab Gasca, WILL) Acetaminophen (TYLENOL) tablet 650 mg(Linked Group 1) 650 mg, Oral, EVERY 4 HOURS NEEDED, Starting on Carie 08/01/22 at 1527, Until 08/05/22 at 1629, Mild Pain, Maximum dose of acetaminophen is 4000 mg from all sources in 24 hours., Post-op/Post-Proc 816 (Given - Provider: Justina Saunders, WILL)2014 (Given - Provider: Aftab Gasca, WILL) Ondansetron (ZOFRAN) tablet 4 mg(Linked Group 2) 4 mg, Oral, EVERY 6 HOURS NEEDED, Starting on Carie 08/01/22 at 1527, Until 08/05/22 at 1629, Nausea / Vomiting, Post-op/Post-Proc Ondansetron 4mg/2ml (ZOFRAN) injection 4 mg(Linked Group 2) 4 mg, Intravenous, EVERY 6 HOURS NEEDED, Starting on Carie 08/01/22 at 1527, Until 08/05/22 at 1629, Nausea / Vomiting, Post-op/Post-Proc oxyCODONE-acetaminophen (PERCOCET) 5-325 MG per tablet 1 tablet(Linked Group 3) 1 tablet, Oral, EVERY 6 HOURS NEEDED, Starting on Carie 08/01/22 at 1527, Until 08/05/22 at 1629, Moderate Pain, Use as initial dose. Higher dose may be administered if lower dose was previously documented as ineffective and did not result in adverse effects (RR<10, decrease in level of consciousness). Tablet (s) may be crushed and dissolved in liquid for oral solution if patient cannot swallow tablets., Post-op/Post-Proc 2047 (Given - Provider: Aftab Gasca RN) oxyCODONE-acetaminophen (PERCOCET) 5-325 MG per tablet 1 tablet(Linked Group 3) 1 tablet, Per NG tube, EVERY 6 HOURS NEEDED, Starting on Carie 08/01/22 at 1527, Until 08/05/22 at 1629, Moderate Pain, Use as initial dose. Higher dose may be administered if lower dose was previously documented as ineffective and did not result in adverse effects (RR<10, decrease in level of consciousness). Tablet(s) may be crushed and dissolved in liquid for NG administration., Post-op/Post-Proc 2047 (See Alternative - Provider: Aftab Gasca RN) oxyCODONE-acetaminophen (PERCOCET) 5-325 MG per tablet 2 tablet(Linked Group 3) 2 tablet, Oral, EVERY 6 HOURS NEEDED, Starting on Carie 08/01/22 at 1527, Until 08/05/22 at 1629, Moderate Pain, Higher dose may be administered if lower dose was previously documented as ineffective and did not result in adverse effects (RR<10, decrease in level of consciousness). Decrease back to lower dose if patient has adverse effects, or no PRN used in previous 12 hours. Tablet (s) may be crushed and dissolved in liquid for oral solution if patient cannot swallow tablets., Post-op/Post-Proc 2047 (See Alternative - Provider: Aftab Gasca RN) oxyCODONE-acetaminophen (PERCOCET) 5-325 MG per tablet 2 tablet(Linked Group 3) 2 tablet, Per NG tube, EVERY 6 HOURS NEEDED, Starting on Carie 08/01/22 at 1527, Until 08/05/22 at 1629, Moderate Pain, Higher dose may be administered if lower dose was previously documented as ineffective and did not result in adverse effects (RR<10, decrease in level of consciousness). Decrease back to lower dose if patient has adverse effects, or no PRN used in previous 12 hours. Tablet(s) may be crushed and dissolved in liquid for NG administration., Post-op/Post-Proc 2047 (See Alternative - Provider: Aftab Gasca RN) Sodium chloride 0.9% IV solution 250 mL Intravenous, at 20 mL/hr, NEEDED, Starting on Carie 08/01/22 at 1527, Until Fri08/05/22 at 1629, Carrier Fluid - See Admin. Inst, 250mL 0.9NS to be used as carrier fluid for intermittent small volume or piggyback medication administration as needed. Infusion rate of the carrier fluid should be set at 20 mL/hr unless the rate as the intermittent medication is less than 20 mL/hr. For intermittent medications with a rate less than 20 mL/hr set the carrier fluid at that rate of the intermittent or piggy back medication., Post-op/Post-Proc Linked Groups Order Group 1: Acetaminophen (TYLENOL) tablet 650 mgJump to med 650 mg, Oral, EVERY 4 HOURS NEEDED, Starting on Carie 08/01/22 at 1527, Until 08/05/22 at 1629, Mild Pain
Maximum dose of acetaminophen is 4000 mg from all sources in 24 hours.
Post-op/Post-Proc Or Acetaminophen (TYLENOL) oral solution 650 mgJump to med 650 mg, Oral, EVERY 4 HOURS NEEDED, Starting on Carie 08/01/22 at 1527, Until 08/05/22 at 1629, Mild Pain
Maximum dose of acetaminophen is 4000 mg from all sources in 24 hours.
Post-op/Post-Proc Or Acetaminophen (TYLENOL) oral solution 650 mgJump to med 650 mg, Per NG tube, EVERY 4 HOURS NEEDED, Starting on Carie 08/01/22 at 1527, Until Fri08/05/22 at 1629, Mild Pain
Maximum dose of acetaminophen is 4000 mg from all sources in 24 hours.
Post-op/Post-Proc Group 2: Ondansetron 4mg/2ml (ZOFRAN) injection 4 mgJump to med 4 mg, Intravenous, EVERY 6 HOURS NEEDED, Starting on Carie 08/01/22 at 1527, Until 08/05/22 at 1629, Nausea / Vomiting, Post-op/Post-Proc Or Ondansetron (ZOFRAN) tablet 4 mgJump to med 4 mg, Oral, EVERY 6 HOURS NEEDED, Starting on Carie 08/01/22 at 1527, Until 08/05/22 at 1629, Nausea / Vomiting, Post-op/Post-Proc Group 3: oxyCODONE-acetaminophen (PERCOCET) 5-325 MG per tablet 1 tabletJump to med 1 tablet, Oral, EVERY 6 HOURS NEEDED, Starting on Carie 08/01/22 at 1527, Until 08/05/22 at 1629, Moderate Pain
Use as initial dose. Higher dose may be administered if lower dose was previously documented as ineffective and did not result in adverse effects (RR<10, decrease in level of consciousness). Tablet (s) may be crushed and dissolved in liquid for oral solution if patient cannot swallow tablets.
Post-op/Post-Proc Or oxyCODONE-acetaminophen (PERCOCET) 5-325 MG per tablet 2 tabletJump to med 2 tablet, Oral, EVERY 6 HOURS NEEDED, Starting on Carie 08/01/22 at 1527, Until Fri08/05/22 at 1629, Moderate Pain
Higher dose may be administered if lower dose was previously documented as ineffective and did not result in adverse effects (RR<10, decrease in level of consciousness). Decrease back to lower dose if patient has adverse effects, or no PRN used in previous 12 hours. Tablet (s) may be crushed and dissolved in liquid for oral solution if patient cannot swallow tablets.
Post-op/Post-Proc Or oxyCODONE-acetaminophen (PERCOCET) 5-325 MG per tablet 1 tabletJump to med 1 tablet, Per NG tube, EVERY 6 HOURS NEEDED, Starting on Carie 08/01/22 at 1527, Until 08/05/22 at 1629, Moderate Pain
Use as initial dose. Higher dose may be administered if lower dose was previously documented as ineffective and did not result in adverse effects (RR<10, decrease in level of consciousness). Tablet(s) may be crushed and dissolved in liquid for NG administration.
Post-op/Post-Proc Or oxyCODONE-acetaminophen (PERCOCET) 5-325 MG per tablet 2 tabletJump to med 2 tablet, Per NG tube, EVERY 6 HOURS NEEDED, Starting on Carie 08/01/22 at 1527, Until 08/05/22 at 1629, Moderate Pain
Higher dose may be administered if lower dose was previously documented as ineffective and did not result in adverse effects (RR<10, decrease in level of consciousness). Decrease back to lower dose if patient has adverse effects, or no PRN used in previous 12 hours. Tablet(s) may be crushed and dissolved in liquid for NG administration.
Post-op/Post-Proc FOR RECORDS PERTAINING TO PATIENTS WHO ARE OR HAVE BEEN ENROLLED IN A CHEMICAL DEPENDENCY/SUBSTANCEABUSE PROGRAM, SOME INFORMATION MAY BE OMITTED. This clinical summary was aggregated from multiple sources. Caution should be exercised in using it in the provision of clinical care. This summary normalizes information from multiple sources, and as a consequence, information in this document may materially change the coding, format and clinical context of patient data. In addition, data may be omitted in some cases. CLINICAL DECISIONS SHOULD BE BASED ON THE PRIMARY CLINICAL RECORDS. [employer] provides no warranty or guarantee of the accuracy or completeness of information in this document.
[2024-10-29 19:55] VITALS: BMI 36.2
[2024-10-29 20:40] VITALS: BMI 36.2
[2024-10-29 20:50] VITALS: BP 134/85; PULSE 94; RESP 20; TEMP 36.8; O2SAT 97
[2024-10-29] MEDS: Aspirin 81 MG TAB.CHEW PO (20:59)
[2024-10-29] MEDS: Senna/Docusate Sodium 1 Tablet 2 TABLET PO (21:01)
[2024-10-29] MEDS: Acetaminophen 500 MG Tablet 1000 MG PO (21:01)
[2024-10-29] MEDS: tiZANidine HCl 2 MG Tablet PO (21:02)
[2024-10-30] MEDS: Acetaminophen 500 MG Tablet 1000 MG PO ×3 (05:42→22:00)
[2024-10-30] MEDS: tiZANidine HCl 2 MG Tablet PO ×3 (05:42→22:00)
[2024-10-30 06:00] VITALS: BP 116/88; PULSE 77; RESP 16; TEMP 36.7; O2SAT 95
[2024-10-30] MEDS: Magnesium Hydroxide 30 ML UDC PO (06:35)
[2024-10-30 06:46] LABS: Absolute Lymphocyte Count 2.42 X10^3/uL (0.83-4.51); Absolute Neutrophil Count 5.9 X10^3/uL (2.0-7.7); Basophil# 0.07 X10^3/uL; Basophil% 0.7 % (0-1); Eosinophil# 0.25 X10^3/uL; Eosinophils% 2.6 % (0-5); Hematocrit 43.4 % (40-54); Hemoglobin 14.7 g/dL (13.0-16.5); Lymphocyte # 2.42 X10^3/ul (0.83-4.51); Lymphocyte % 25.4 % (19-41); Mean Corp Hgb Conc 33.9 g/dL (32-36); Mean Corpuscular Hgb 29.3 pg (27.0-32.0); Mean Corpuscular Volume 86.6 fL (80-94); Mean Platelet Vol. 8.9 fl (6.2-12.0); Monocyte# 0.92 X10^3/uL; Monocyte% 9.7 % (0-10); NRBC Flagged by Analyzer 0 % (0-5); Neutrophil # 5.85 X10^3/uL (2.7-7.7); Neutrophil % 61.4 % (47-70); Platelet Count 277 K/mm3 (150-450); RBC Distribution Width CV 13.4 % (11.6-14.6); RBC Distribution Width SD 41.8 fl (35.1-43.9); Red Blood Count 5.01 M/mm3 (4.6-6.2); White Blood Count 9.5 K/mm3 (4.4-11.0)
[2024-10-30 06:59] LABS: ALB/GLOB Ratio 1.3 RATIO (0.9-2.4); AST(SGOT) 22 U/L (<=37); Alanine Aminotransfer ALT/SGPT 58 U/L (<=46); Alkaline Phosphatase 98 U/L (40-129); Anion Gap 11 (5-15); BUN 17 mg/dL (4-19); BUN/Creat Ratio 18.4 RATIO (10-20); Calcium,Total 9.2 mg/dL (7.6-11.0); Carbon Dioxide 24.7 mmol/L (21.0-32.0); Chloride 105 mmol/L (98-108); Creatinine, Serum 0.93 mg/dL (0.70-1.20); EST Glomerular Filtration Rate 106 (>60); Estimated Creatinine Clearance 118.28 ml/min (50-250); Globulin 3.1 g/dL (2.2-4.2); Glucose 109 mg/dL (70-99); Magnesium 2.2 mg/dL (1.5-2.2); Sodium Level 140 mmol/L (133-145); Total Bilirubin 0.66 mg/dL (0.00-1.30)
[2024-10-30] MEDS: Aspirin 81 MG TAB.CHEW PO ×2 (08:20→16:58)
[2024-10-30] MEDS: Multivitamins,Therapeutic Tablet 1 TABLET PO (08:21)
[2024-10-30] MEDS: Senna/Docusate Sodium 1 Tablet 2 TABLET PO ×2 (08:21→22:00)
[2024-10-30] MEDS: Ipratropium Bromide 0.06% NASAL SPRAY 2 SPRAY NASAL ×2 (08:22→21:59)
[2024-10-30] MEDS: Omega-3 Acid Ethyl Esters 1 GM Capsule PO (08:22)
[2024-10-30] MEDS: Cholecalciferol (Vit D3) 125 MCG CAPSULE (5,000 UNITS) PO (08:22)
[2024-10-30 14:26] VITALS: BMI 36.2
[2024-10-30 18:00] VITALS: BP 132/87; PULSE 84; RESP 16; TEMP 36.9; O2SAT 96
[2024-10-30 22:00] VITALS: PULSE 84; RESP 16; O2SAT 96
[2024-10-30 22:57] VITALS: BMI 36.2
[2024-10-31] MEDS: tiZANidine HCl 2 MG Tablet PO ×3 (05:01→20:32)
[2024-10-31] MEDS: Acetaminophen 500 MG Tablet 1000 MG PO ×3 (05:01→20:33)
[2024-10-31 06:00] VITALS: BP 140/94; PULSE 79; RESP 16; TEMP 36.3; O2SAT 96
[2024-10-31] MEDS: Ipratropium Bromide 0.06% NASAL SPRAY 2 SPRAY NASAL ×2 (08:22→20:33)
[2024-10-31] MEDS: Senna/Docusate Sodium 1 Tablet 2 TABLET PO ×2 (08:23→20:32)
[2024-10-31] MEDS: Multivitamins,Therapeutic Tablet 1 TABLET PO (08:23)
[2024-10-31] MEDS: Aspirin 81 MG TAB.CHEW PO ×2 (08:23→17:12)
[2024-10-31] MEDS: Omega-3 Acid Ethyl Esters 1 GM Capsule PO (08:23)
[2024-10-31] MEDS: Cholecalciferol (Vit D3) 125 MCG CAPSULE (5,000 UNITS) PO (08:23)
[2024-10-31 14:22] VITALS: BMI 36.2
[2024-10-31 18:00] VITALS: BP 135/90; PULSE 81; RESP 16; TEMP 37.1; O2SAT 94
[2024-10-31 19:26] VITALS: BMI 36.2
[2024-10-31 19:29] VITALS: PULSE 81; RESP 16; O2SAT 94
[2024-11-01] MEDS: Acetaminophen 500 MG Tablet 1000 MG PO ×3 (05:34→20:29)
[2024-11-01] MEDS: tiZANidine HCl 2 MG Tablet PO ×3 (05:34→20:29)
[2024-11-01 05:44] VITALS: BP 122/72; PULSE 77; RESP 16; TEMP 36.9; O2SAT 97
--- NOTE | 2024-11-01 08:58 | PN_ITS ---
Subjective Subjective Afebrile VSS -blood pressure since arrival on rehab have ranged from 122/72 to 140/94. Heart rate is within normal limits. Maintaining appropriate oxygen saturation on RA Oral intake - FOOD good FLUIDS good No bowel movements recorded since admission to rehab. Discussed with nursing -incontinent of urine. Reviewed the THERAPY notes Medication list reviewed. Has not taken any oxycodone since arrival in rehab. He is getting tizanidine 2 mg 3 times daily. Romeo tells me the pain in the RLE is better today. PT tells me that the hypertonicity in the RLE is better today and he did better with therapy. No CP, SOB, cough, palpitations, N/V/D/abd pain, no dysuria and no calf pain. Objective Data Objective Data Vital Signs: Vital Signs Temp Pulse Resp BP Pulse Ox O2 Del Method 98.5 F 77 16 122/72 H 97 Room Air 11/01/24 05:44 11/01/24 05:44 11/01/24 05:44 11/01/24 05:44 11/01/24 05:44 11/01/24 05:44 Oxygen Delivery Method Room Air Weight: 225 lb 8.526 oz Body Mass Index (BMI) 36.2 Intake & Output: Intake and Output for Last 24 Hours 10/30/24 10/31/24 11/01/24 23:59 23:59 23:59 Intake Total 1280 / 1280 1710 / 1710 120 / 120 Output Total 150 / 150 Balance 1130 / 1130 1710 / 1710 120 / 120 Lab / Micro Data 10/30/24 06:21 10/30/24 06:21 Physical Exam Const alert and no apparent distress Constitutional Narrative: pleasant General Appearance: cooperative HEENT moist oral mucous membranes Resp normal respiratory effort, normal air movement and clear to auscultation bilaterally Resp Narrative: No cough Effort and Inspection: Negative for tachypneic or respiratory distress Cardio regular rate, regular rhythm, no murmurs, no rub and no gallops Cardio Narrative: No ectopy GI normal to inspection, nondistended, normoactive bowel sounds and soft to palpation GI Narrative: No guarding with palpation. Denies nausea/vomiting/abdominal pain. No BM ssince arriving on rehab and told me that he had not had a BM for 2 days prior to arriving on rehab. Extremity no calf tenderness Extremity Narrative: No ankle edema. TROM brace is in place RLE. the brace was removed. the incision is intact with no dehiscence. Steri strips are in place. There is no lorenza-incisional erythema and there is no DC.......no DC on the dressing either. the is some swelling of the thigh above the knee and of the knee itself. some ankle edema on the R. General Extremity: Negative for cyanosis Skin no jaundice General Skin Exam: no breakdown Rashes: no rashes Neuro moves all extremities Neuro Narrative: Persistent R hemiparesis since the CVA/intracerebral bleed in May. Alert and pleasant. Speech is slow but, easy to understand. Sensorium / Orientation: oriented to person and oriented to place Psych cooperative, affect normal and denies suicidal ideation Psych Narrative: Not tearful today when doing therapy. Pain is better Appearance: grossly normal, appropriate and well kempt Attitude: calm and engaged Activity / Motor Behavior: appropriate eye contact Speech: slow Mood & Affect: tearful; Negative for depressed, anxious or constricted affect Assessment & Plan Assessment/Plan (1) Physical debility: (2) Patella fracture: QUALIFIERS: Encounter type: subsequent encounter Fracture type: c losed Fracture morphology: unspecified fracture morphology Fracture alignment: nondisplaced Laterality: right (3) Status post open reduction and internal fixation (ORIF) of fracture of right patella: (4) Other acute postprocedural pain: (5) Cognitive dysfunction due to stroke: (6) Obesity (BMI 30.0-34.9): (7) Urinary incontinence as sequela of cerebrovascular accident (CVA): (8) Hemiparesis affecting right side as late effect of cerebrovascular accident: (9) Urinary incontinence: (10) Right foot drop: PLAN: Plan 1. Continue therapy 2. Laxative cocktail today. 3. Continue stool softeners. Charges/Coding Visit Charges Inpatient E&M: 04199 [facility] Hosp L1
[2024-11-01] MEDS: Cholecalciferol (Vit D3) 125 MCG CAPSULE (5,000 UNITS) PO (09:02)
[2024-11-01] MEDS: Senna/Docusate Sodium 1 Tablet 2 TABLET PO ×2 (09:02→20:29)
[2024-11-01] MEDS: Ipratropium Bromide 0.06% NASAL SPRAY 2 SPRAY NASAL ×2 (09:02→20:28)
[2024-11-01] MEDS: Aspirin 81 MG TAB.CHEW PO ×2 (09:02→17:25)
[2024-11-01] MEDS: Omega-3 Acid Ethyl Esters 1 GM Capsule PO (09:02)
[2024-11-01] MEDS: Multivitamins,Therapeutic Tablet 1 TABLET PO (09:02)
[2024-11-01] MEDS: Magnesium Hydroxide 30 ML UDC 60 ML PO (09:31)
[2024-11-01 13:02] VITALS: BMI 36.2
[2024-11-01 17:55] VITALS: BP 112/80; PULSE 95; RESP 18; TEMP 37.2; O2SAT 97
[2024-11-01 23:21] VITALS: BMI 36.2
[2024-11-02 06:00] VITALS: BP 136/86; PULSE 76; RESP 16; TEMP 36.8; O2SAT 93
[2024-11-02] MEDS: Acetaminophen 500 MG Tablet 1000 MG PO ×3 (06:44→20:36)
[2024-11-02] MEDS: tiZANidine HCl 2 MG Tablet PO ×3 (07:02→20:37)
[2024-11-02] MEDS: Multivitamins,Therapeutic Tablet 1 TABLET PO (08:35)
[2024-11-02] MEDS: Aspirin 81 MG TAB.CHEW PO ×2 (08:35→16:56)
[2024-11-02] MEDS: Omega-3 Acid Ethyl Esters 1 GM Capsule PO (08:35)
[2024-11-02] MEDS: Cholecalciferol (Vit D3) 125 MCG CAPSULE (5,000 UNITS) PO (08:35)
[2024-11-02] MEDS: Ipratropium Bromide 0.06% NASAL SPRAY 2 SPRAY NASAL ×2 (08:36→20:36)
--- NOTE | 2024-11-02 11:00 | PCM.PROGNOTE ---
Subjective Subjective Afebrile VSS - Maintaining appropriate oxygen saturation on RA Oral intake - FOOD good FLUIDS good Having regular BM's now.....1 yesterday and 2 this AM........he has a routine at home. He had a GI cocktail yesterday for lack of BM for 5 days. He gets on the toilet every morning after breakfast for BM. Discussed with nursing - no problems that need addressed. Slept well last night. Very cooperative. Reviewed the THERAPY notes Medication list reviewed. Not requiring any Oxycodone. Pain control is adequate with Muscle relaxers and scheduled Tylenol. Denies pain when I am seeing him today. No ANGUIANO, lightheadedness, CP, SOB, chills. He is pleasant and does not appear to be in any distress. Objective Data Objective Data Vital Signs: Vital Signs Temp Pulse Resp BP Pulse Ox O2 Del Method 98.2 F 76 16 136/86 H 93 Room Air 11/02/24 06:00 11/02/24 06:00 11/02/24 06:00 11/02/24 06:00 11/02/24 06:00 11/02/24 06:00 Oxygen Delivery Method Room Air Weight: 225 lb 8.526 oz Body Mass Index (BMI) 36.2 Intake & Output: Intake and Output for Last 24 Hours 10/31/24 11/01/24 11/02/24 23:59 23:59 23:59 Intake Total 1710 / 1710 950 / 950 240 / 240 Output Total 300 / 300 150 / 150 Balance 1710 / 1710 650 / 650 90 / 90 Lab / Micro Data 10/30/24 06:21 10/30/24 06:21 Physical Exam Const alert and no apparent distress Constitutional Narrative: pleasant General Appearance: cooperative HEENT moist oral mucous membranes Resp normal respiratory effort, normal air movement and clear to auscultation bilaterally Resp Narrative: No cough Cardio regular rate and no murmurs Cardio Narrative: No ectopy GI normal to inspection, nondistended, normoactive bowel sounds and soft to palpation Extremity no calf tenderness Skin Rashes: no rashes Assessment & Plan Assessment/Plan (1) Physical debility: (2) Patella fracture: QUALIFIERS: Encounter type: subsequent encounter Fracture type: closed Fracture morphology: unspecified fracture morphology Fracture alignment: nondisplaced Laterality: right (3) Status post open reduction and internal fixation (ORIF) of fracture of right patella: (4) Other acute postprocedural pain: (5) Cognitive dysfunction due to stroke: (6) Obesity (BMI 30.0-34.9): (7) Urinary incontinence as sequela of cerebrovascular accident (CVA): (8) Hemiparesis affecting right side as late effect of cerebrovascular accident: (9) Urinary incontinence: QUALIFIERS: Urinary Incontinence type: urinary incontinence without sensory awareness Qualified Code(s): N39.42 - Incontinence without sensory awareness (10) Right foot drop: PLAN: Plan 1. Continue therapy. 2. Hav nursing get him on the toilet every day between 8 and 8:30 to help prevent incontinence during therapy sessions. Charges/Coding Visit Charges Inpatient E&M: 66108 [facility] Hosp L1
[2024-11-02 14:36] VITALS: BMI 36.2
[2024-11-02 17:59] VITALS: BP 112/83; PULSE 78; RESP 16; TEMP 36.7; O2SAT 96
[2024-11-02] MEDS: Menthol/Lanolin/Calamine/Znox 113 GM Tube 1 APPLIC TOPICAL (22:22)
[2024-11-03 02:41] VITALS: BMI 36.2
[2024-11-03 06:00] VITALS: BP 140/94; PULSE 74; RESP 17; TEMP 36.6; O2SAT 98; BMI 35.7
[2024-11-03] MEDS: tiZANidine HCl 2 MG Tablet PO ×3 (06:20→22:35)
[2024-11-03] MEDS: Acetaminophen 500 MG Tablet 1000 MG PO ×3 (06:20→22:35)
--- NOTE | 2024-11-03 07:05 | PCM.PN.ORT ---
Subjective Subjective well. no concerns. Post op 1 week right patella ORIF. inpatient rehab unit. Objective Data Objective Data Vital Signs: Vital Signs Temp Pulse Resp BP Pulse Ox O2 Del Method 97.8 F 74 17 140/94 H 98 Room Air 11/03/24 06:00 11/03/24 06:00 11/03/24 06:00 11/03/24 06:00 11/03/24 06:00 11/03/24 06:00 Oxygen Delivery Method Room Air Weight: 221 lb 9.033 oz Body Mass Index (BMI) 35.7 Intake & Output: Intake and Output for Last 24 Hours 11/01/24 11/02/24 11/03/24 23:59 23:59 23:59 Intake Total 950 / 950 1100 / 1100 100 / 100 Output Total 300 / 300 300 / 300 675 / 675 Balance 650 / 650 800 / 800 -575 / -575 Lab / Micro Data 10/30/24 06:21 10/30/24 06:21 Physical Exam Const alert, oriented x3, no apparent distress and well nourished Extremity Extremity Narrative: closed, no swelling, steri stips in place, no incision concerns, covered, dry, nvi Assessment & Plan Assessment/Plan (1) Status post open reduction and internal fixation (ORIF) of fracture of right patella: PLAN: 38 yr M post op 1 week right patella ORIF. doing well. no concerns. WBAT in full extension with brace. starting 2 weeks after surgery ok to increase ROM 15-20 degrees a week. OK to accept higher risk of stiffness given poor bone quality / ambulatory status so go slow on knee ROM / rehab. FU in office at 2 weeks post op for wound check and xrays. Unsure at this point about next steps but patient states plan to go back home after rehab. I asked him to let his parents know I was by to see him as they had contacted the office this week. Call with concern.
[2024-11-03] MEDS: Aspirin 81 MG TAB.CHEW PO ×2 (07:52→17:01)
[2024-11-03] MEDS: Ipratropium Bromide 0.06% NASAL SPRAY 2 SPRAY NASAL ×2 (07:52→22:34)
[2024-11-03] MEDS: Omega-3 Acid Ethyl Esters 1 GM Capsule PO (07:52)
[2024-11-03] MEDS: Cholecalciferol (Vit D3) 125 MCG CAPSULE (5,000 UNITS) PO (07:52)
[2024-11-03] MEDS: Multivitamins,Therapeutic Tablet 1 TABLET PO (07:52)
[2024-11-03] MEDS: Menthol/Lanolin/Calamine/Znox 113 GM Tube 1 APPLIC TOPICAL ×2 (07:53→22:33)
[2024-11-03 16:07] VITALS: BMI 35.7
[2024-11-03 16:50] VITALS: BP 127/82; PULSE 81; RESP 17; TEMP 36.8; O2SAT 100
[2024-11-03 22:30] VITALS: BP 130/90; PULSE 79; RESP 16; TEMP 37.6; O2SAT 96; BMI 35.7
[2024-11-03] MEDS: Senna/Docusate Sodium 1 Tablet 2 TABLET PO (22:34)
[2024-11-04 06:00] VITALS: BP 126/85; PULSE 76; RESP 16; TEMP 36.3; O2SAT 97
[2024-11-04] MEDS: Acetaminophen 500 MG Tablet 1000 MG PO ×3 (06:02→22:43)
[2024-11-04] MEDS: tiZANidine HCl 2 MG Tablet PO ×3 (06:02→22:43)
--- NOTE | 2024-11-04 08:33 | PN_ITS ---
Subjective Subjective Romeo was seen on team rounds today. Family was present in the room. Afebrile VSS -blood pressures over the past 24 hours have ranged from 127/82 to 140/94. Diastolics were consistently above 80. Heart rate is within normal limits. He is not on an antihypertensive. Maintaining appropriate oxygen saturation on RA Oral intake - FOOD good FLUIDS good He had 2 bowel movements yesterday and 3 bowel movements on 11/02/2024. Discussed with nursing - no problems that need addressed Reviewed the THERAPY notes Medication list reviewed. Tameka denies pain, insomnia, lightheadedness, shortness of breath, nausea/vomiting, dysuria and calf tenderness. He is making excellent progress with therapy. Objective Data Objective Data Vital Signs: Vital Signs Temp Pulse Resp BP Pulse Ox O2 Del Method 97.4 F L 76 16 126/85 H 97 Room Air 11/04/24 06:00 11/04/24 06:00 11/04/24 06:00 11/04/24 06:00 11/04/24 06:00 11/04/24 06:00 Oxygen Delivery Method Room Air Weight: 221 lb 9.033 oz Body Mass Index (BMI) 35.7 Intake & Output: Intake and Output for Last 24 Hours 11/02/24 11/03/24 11/04/24 23:59 23:59 23:59 Intake Total 1100 / 1100 940 / 1180 520 / 520 Output Total 300 / 300 675 / 675 380 / 380 Balance 800 / 800 265 / 505 140 / 140 Lab / Micro Data 10/30/24 06:21 10/30/24 06:21 Physical Exam Const alert and no apparent distress Constitutional Narrative: pleasant General Appearance: cooperative HEENT moist oral mucous membranes Resp normal respiratory effort, normal air movement and clear to auscultation bilaterally Resp Narrative: No cough Cardio regular rate and no murmurs Cardio Narrative: No ectopy GI normal to inspection, nondistended, normoactive bowel sounds and soft to palpation Extremity no calf tenderness Skin Skin Narrative: Incision is intact, Steri-Strips are in place, no lorenza-incisional erythema and no purulent discharge. Rashes: no rashes Assessment & Plan Assessment/Plan (1) Physical debility: (2) Patella fracture: QUALIFIERS: Encounter type: subsequent encounter Fracture type: c losed Fracture morphology: unspecified fracture morphology Fracture alignment: nondisplaced Laterality: right (3) Status post open reduction and internal fixation (ORIF) of fracture of right patella: (4) Other acute postprocedural pain: (5) Cognitive dysfunction due to stroke: (6) Obesity (BMI 30.0-34.9): (7) Urinary incontinence as sequela of cerebrovascular accident (CVA): (8) Hemiparesis affecting right side as late effect of cerebrovascular accident: (9) Urinary incontinence: QUALIFIERS: Urinary Incontinence type: urinary incontinence without sensory awareness Qualified Code(s): N39.42 - Incontinence without sensory awareness (10) Right foot drop: PLAN: Plan 1. Continue therapy 2 Decrease senna to 1 tablet twice daily 3. Blood pressures are mildly elevated but this may be secondary to pain. No tx at this time......will have family check the BP's at home and if it stays midly elevated consider adding and antihypertensive. 4. Will follow-up with Dr. Alexander postdischarge. Charges/Coding Visit Charges Inpatient E&M: 22041 Subs Hosp L2
[2024-11-04] MEDS: Senna/Docusate Sodium 1 Tablet PO ×2 (09:24→22:43)
[2024-11-04] MEDS: Omega-3 Acid Ethyl Esters 1 GM Capsule PO (09:25)
[2024-11-04] MEDS: Multivitamins,Therapeutic Tablet 1 TABLET PO (09:25)
[2024-11-04] MEDS: Cholecalciferol (Vit D3) 125 MCG CAPSULE (5,000 UNITS) PO (09:25)
[2024-11-04] MEDS: Ipratropium Bromide 0.06% NASAL SPRAY 2 SPRAY NASAL ×2 (09:25→22:40)
[2024-11-04] MEDS: Aspirin 81 MG TAB.CHEW PO ×2 (09:25→16:57)
[2024-11-04] MEDS: Menthol/Lanolin/Calamine/Znox 113 GM Tube 1 APPLIC TOPICAL ×2 (09:29→22:41)
--- NOTE | 2024-11-04 12:51 | CASEMGMT ---
Social Work Team meeting held with pt and pt's mother present and pt's sister Gege on speaker phone. PT/OT/SN/Physician provided updates. Pt is progressing well with therapy. RAMSEY educated pt and family that Ирина mckenzie approved stay with [facility] on 11/08. Pt's family is requesting discharge home on 11/09 between 9 and 10 as pt has a follow up appointment with orthopedics on Friday. Team is agreeable with dc plan. PT will need to follow up with orthopedic doctor on Friday and discuss with this physician if continued outpatient therapy is needed. Pt's family is aware and will talk to the ortho physician about this. Pt has needed DME. Discharge Date: 11/09 Discharge plan: Home with family assist. Pt to follow up with orthopedic physician regarding continuing outpatient PT NEREYDA Conley
[2024-11-04 12:57] VITALS: BMI 35.7
[2024-11-04 18:00] VITALS: BP 118/80; PULSE 73; RESP 16; TEMP 36.9; O2SAT 97
[2024-11-04 22:30] VITALS: BP 131/86; PULSE 82; RESP 18; TEMP 37.1
[2024-11-05 03:57] VITALS: BMI 35.7
[2024-11-05] MEDS: tiZANidine HCl 2 MG Tablet PO ×3 (05:38→20:53)
[2024-11-05] MEDS: Acetaminophen 500 MG Tablet 1000 MG PO ×3 (05:38→20:53)
[2024-11-05 06:00] VITALS: BP 119/85; PULSE 68; RESP 16; TEMP 36.7; O2SAT 95
[2024-11-05] MEDS: Cholecalciferol (Vit D3) 125 MCG CAPSULE (5,000 UNITS) PO (08:53)
[2024-11-05] MEDS: Aspirin 81 MG TAB.CHEW PO ×2 (08:53→17:14)
[2024-11-05] MEDS: Senna/Docusate Sodium 1 Tablet PO (08:53)
[2024-11-05] MEDS: Multivitamins,Therapeutic Tablet 1 TABLET PO (08:53)
[2024-11-05] MEDS: Omega-3 Acid Ethyl Esters 1 GM Capsule PO (08:53)
[2024-11-05] MEDS: Ipratropium Bromide 0.06% NASAL SPRAY 2 SPRAY NASAL ×2 (08:54→20:53)
[2024-11-05] MEDS: Menthol/Lanolin/Calamine/Znox 113 GM Tube 1 APPLIC TOPICAL ×2 (08:55→20:53)
[2024-11-05 11:52] VITALS: BMI 35.7
[2024-11-05 17:36] VITALS: BP 123/83; PULSE 82; RESP 16; TEMP 36.3; O2SAT 97
[2024-11-06 06:00] VITALS: BP 134/89; PULSE 71; RESP 16; TEMP 36.8; O2SAT 95
[2024-11-06] MEDS: Acetaminophen 500 MG Tablet 1000 MG PO ×3 (06:09→21:05)
[2024-11-06] MEDS: tiZANidine HCl 2 MG Tablet PO ×3 (06:09→21:06)
[2024-11-06] MEDS: Aspirin 81 MG TAB.CHEW PO ×2 (07:51→16:48)
[2024-11-06] MEDS: Cholecalciferol (Vit D3) 125 MCG CAPSULE (5,000 UNITS) PO (07:51)
[2024-11-06] MEDS: Omega-3 Acid Ethyl Esters 1 GM Capsule PO (07:52)
[2024-11-06] MEDS: Multivitamins,Therapeutic Tablet 1 TABLET PO (07:53)
[2024-11-06] MEDS: Menthol/Lanolin/Calamine/Znox 113 GM Tube 1 APPLIC TOPICAL ×2 (07:53→21:08)
[2024-11-06] MEDS: Ipratropium Bromide 0.06% NASAL SPRAY 2 SPRAY NASAL ×2 (07:53→21:05)
[2024-11-06 17:11] VITALS: BP 117/77; PULSE 80; RESP 17; TEMP 37.2; O2SAT 97
[2024-11-07 03:23] VITALS: BMI 35.7
[2024-11-07] MEDS: Acetaminophen 500 MG Tablet 1000 MG PO ×3 (05:54→22:17)
[2024-11-07] MEDS: tiZANidine HCl 2 MG Tablet PO ×3 (05:55→22:16)
[2024-11-07 05:56] VITALS: BP 123/87; PULSE 74; RESP 17; TEMP 36.7; O2SAT 99
[2024-11-07] MEDS: Ipratropium Bromide 0.06% NASAL SPRAY 2 SPRAY NASAL ×2 (08:44→22:18)
[2024-11-07] MEDS: Aspirin 81 MG TAB.CHEW PO ×2 (08:45→16:37)
[2024-11-07] MEDS: Omega-3 Acid Ethyl Esters 1 GM Capsule PO (08:45)
[2024-11-07] MEDS: Cholecalciferol (Vit D3) 125 MCG CAPSULE (5,000 UNITS) PO (08:46)
[2024-11-07] MEDS: Multivitamins,Therapeutic Tablet 1 TABLET PO (08:46)
[2024-11-07] MEDS: Menthol/Lanolin/Calamine/Znox 113 GM Tube 1 APPLIC TOPICAL ×2 (08:46→22:18)
[2024-11-07 14:43] VITALS: BMI 35.7
[2024-11-07 18:00] VITALS: BP 120/93; PULSE 82; RESP 16; TEMP 37.2; O2SAT 96
[2024-11-07] MEDS: Senna/Docusate Sodium 1 Tablet PO (22:16)
[2024-11-08 05:14] VITALS: BP 115/77; PULSE 73; RESP 15; TEMP 36.3; O2SAT 97
[2024-11-08] MEDS: Acetaminophen 500 MG Tablet 1000 MG PO ×3 (05:16→21:30)
[2024-11-08] MEDS: tiZANidine HCl 2 MG Tablet PO ×3 (05:16→21:31)
[2024-11-08] MEDS: Senna/Docusate Sodium 1 Tablet PO (07:53)
[2024-11-08] MEDS: Ipratropium Bromide 0.06% NASAL SPRAY 2 SPRAY NASAL ×2 (07:53→21:29)
[2024-11-08] MEDS: Omega-3 Acid Ethyl Esters 1 GM Capsule PO (07:54)
[2024-11-08] MEDS: Multivitamins,Therapeutic Tablet 1 TABLET PO (07:54)
[2024-11-08] MEDS: Aspirin 81 MG TAB.CHEW PO ×2 (07:54→16:57)
[2024-11-08] MEDS: Cholecalciferol (Vit D3) 125 MCG CAPSULE (5,000 UNITS) PO (07:54)
[2024-11-08] MEDS: Menthol/Lanolin/Calamine/Znox 113 GM Tube 1 APPLIC TOPICAL ×2 (07:54→21:32)
--- NOTE | 2024-11-08 14:58 | DCINST_ITS ---
Discharge Instructions DC O2, CPAP, BIPAP needs Home O2 Discharge instructions: No Dressing / Incision Weight Bearing Status: Weight bearing as tolerated Keep extremity elevated above heart level: Right Leg Dressing / Incision Call your doctor if your incision/area has: Continuous Slow Oozing, Sudden Increased Bleeding, Increased Pain/ Swelling, Increased Redness, Foul Smelling Discharge and Swelling at the incision site Call your doctor if you observe: Fever of 101 or Higher, Inability to urinate, Inability to have a bowel movement, Shortness of breath, Fainting spells, Sw elling in the ankles, Chest pain, Increased palpitations (irregular heartbeat), Calf discomfort, Uncontrolled pain and - (STROKE symptoms: facial droop, slurred speech, inability to get words out, weakness on 1 side of the body and not the other, numbness on 1 side of the body and not the other, inability to maintain your balance sitting or standing, vertigo. ) Suture Line Care: Avoid Pulling/Pushing and Avoid Pinching/Bending Change Dressing in: 1 day Cleanse incision/area with: Soap & Water and Keep Dressing Clean & Dry Follow Up Care Please Follow Up With: Adonay Alexander MD When: you will also need to follow up with Dr. Alexander. Test Results: Test results from this visit will be discussed in further detail at your follow- up appointment, if applicable. Discharge Plan Admission Admit Date/Time: 10/29/24 14:42 Primary Reason for Your Visit: Debility due to ORIF R patella fx Attending Provider: Kristyn Wallace Primary Care Provider: Mario Moreira Instructions Patient Instructions: Caring for Your Incision Additional Instructions / Restrictions: 1. Do not soak the incision. You may shower and then dry the incision. If there is redness around the incision or increased drainage, increased pain or increased swelling call Dr. Alexander. Also call for fevers, sweats or shaking chills. 2. Romeo has not been taking anything for pain other than Tylenol and a muscle relaxer. I am giving you a small amount of Oxycodone to have at home in case the pain would be worse. Sometimes people tend to overdo at home and they have more pain. Discharge Orders/Prescriptions Prescriptions: New tizanidine 2 mg Tablet 2 mg PO TID Qty: 30 0RF Rx Instructions: Take 1 tab every 8 hours as needed for muscle spasms. aspirin 81 mg Tablet,Chewable 81 mg PO BIDCM Qty: 1 0RF Rx Instructions: You can stop the aspirin on 11/26/24. It is to help prevent blood clots for 1 month after surgery. oxycodone 5 mg Tablet 5 - 10 mg PO Q4H PRN PRN (Reason: Pain Score 1-10) 7 Days Qty: 20 0RF Rx Instructions: Take 1 or 2 tabs every 4 -6 hours as needed for pain not controlled with Tylenol or Tizanidine. Continued omega 0-gnh-uqb-fish oil [Fish Oil] 60-90-500 mg capsule 1 cap PO QDAY cholecalciferol (vitamin D3) 125 mcg (5,000 unit) capsule 125 mcg PO QDAY ipratropium bromide 42 mcg (0.06 %) spray,non-aerosol 2 spray NASAL BID acetaminophen [Acetaminophen Pain Relief] 500 mg tablet 1,000 mg PO Q8 multivitamin [Daily Multi-Vitamin] Tablet 1 tab PO DAILY TRANSFACTOR 1 tab PO DAILY FOUR LIFE capsule 2 tab PO DAILY Referrals / Follow Up: Mario Moreira DO [Primary Care Provider] - 11/17/24 9:00 am () Disposition Disposition (needs filled in before D/C Order can be placed): Home, Self Care
[2024-11-08 15:24] VITALS: BMI 35.7
--- NOTE | 2024-11-08 15:24 | CHAPLAIN ---
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 ___ Other (describe below) Sacrament/Intervention _x__ Active listening ___ Anointing ___ Anabaptism ___ Bereavement ___ Communion _x__ Jada exploration ___ _x__ Life review _x__ Prayer ___ Reconciliation ___ Sacrament of Sick ___ Supportive presence ___ Wedding __x_ Other (describe below) Pastoral Comments patient was sitting in his chair listening to rastafarian ensemble music; pt is welcoming and acceptable to time to talk and for a prayer; pt acknowledges self as an apostolic person; pt gives review of his work situation and his rastafarian connection; pt is pleasant but mostly answers questions and does not make own conversation; explored some about his family and his rastafarian; prayer welcomed
--- NOTE | 2024-11-08 15:28 | PCM.DC.SUM ---
Providers Date of Admission: 10/29/24 Date of Discharge: 11/09/24 Primary Care Physician: Dr. Mario Moreira DO Reason For Visit: RIGHT KNEE ORIF Diagnosis Discharge Diagnosis (1) Physical debility: Status: Acute Code(s): R53.81 - Other malaise (2) Patella fracture: Status: Acute Code(s): S82.009A - Unspecified fracture of unspecified patella, initial encounter for closed fracture Qualifiers: Encounter type: subsequent encounter Fracture alignment: nondisplaced Fracture morphology: unspecified fracture morphology Fracture type: closed Laterality: right (3) Status post open reduction and internal fixation (ORIF) of fracture of right patella: Status: Acute Code(s): Z98.890 - Other specified postprocedural states; Z87.81 - Personal history of (healed) traumatic fracture (4) Other acute postprocedural pain: Status: Acute Code(s): G89.18 - Other acute postprocedural pain Plan: Pain is controlled with tizanidine 2 mg 3 times daily and Tylenol 1 g p.o. every 8 hours at the time of discharge from rehab. He did not take oxycodone while he was a patient on rehab but was given a prescription for a small amount to have at home should he have pain that is not adequately controlled with Tylenol or tizanidine. (5) Cognitive dysfunction due to stroke: Status: Chronic (6) Obesity (BMI 30.0-34.9): Status: Chronic Code(s): E66.9 - Obesity, unspecified (7) Urinary incontinence as sequela of cerebrovascular accident (CVA): Status: Chronic Code(s): I69.398 - Other sequelae of cerebral infarction; R32 - Unspecified urinary incontinence (8) Hemiparesis affecting right side as late effect of cerebrovascular accident: Status: Chronic Code(s): I69.351 - Hemiplegia and hemiparesis following cerebral infarction affecting right dominant side Plan: Romeo always has hypertonicity of the right lower extremity secondary to previous stroke. Flexion at the knee is limited due to this. (9) Urinary incontinence: Status: Chronic Code(s): R32 - Unspecified urinary incontinence Qualifiers: Urinary Incontinence type: urinary incontinence without sensory awareness Qualified Code(s): N39.42 - Incontinence without sensory awareness (10) Right foot drop: Status: Chronic Code(s): M21.371 - Foot drop, right foot Plan 1. Discharge home on 11/09/[address] Alexander to determine whether parents should have home health care for therapy or he can be outpatient. He will also determine when this starts. Romeo has followed up at [facility] in the past and done quite well. 3. Follow-up appointments have been scheduled with Dr. Alexander and with Dr. Mario Moreira. 4. New prescriptions were faxed to [facility] in [place]. Medications at Discharge Home Medications ipratropium bromide 42 mcg (0.06 %) nasal spray 2 spray NASAL BID airway 08/05/22 cholecalciferol (vitamin D3) 125 mcg (5,000 unit) capsule 125 mcg PO QDAY supplement 10/14/24 omega 7-lnu-rhp-fish oil 60 mg-90 mg-500 mg capsule (Fish Oil) 1 cap PO QDAY supplement 10/14/24 FOUR LIFE 2 tab PO DAILY supplement 10/20/24 TRANSFACTOR 1 tab PO DAILY supplement 10/20/24 multivitamin (Daily Multi-Vitamin tablet) 1 tab PO DAILY supplement 10/20/24 acetaminophen 500 mg tablet (Acetaminophen Pain Relief) 1,000 mg PO Q8 apin 10/29/24 aspirin 81 mg chewable tablet 81 mg PO BIDCM #1 TAB 11/08/24 oxycodone 5 mg tablet 5 - 10 mg (1 - 2 x 5 mg) PO Q4H PRN PRN Pain Score 1-10 1 week #20 tabs 11/08/24 tizanidine 2 mg tablet 2 mg PO TID #30 tabs 11/08/24 Hospital Course Operations - (Open reduction with internal fixation of right patellar fracture on 10/27/[address] 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 He returned to rehab in August 2022 following replacement of the bone flap that was removed at the time of the initial craniectomy. 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 Romeo was seen in the emergency room on 10/09/2024 after a mechanical ground-level fall at home while walking up and down his driveway. The right ankle showed severe diffuse osseous demineralization with no obvious fracture or dislocation. He was placed in a knee immobilizer and instructed to follow-up as an outpatient with Dr. Alexander. There was disruption of the extensor mechanism in the right knee and Dr. Alexander recommended surgical fixation. Romeo was admitted to [facility] on 10/27/2024 and underwent open reduction internal fixation of the right patella fracture. Romeo was transferred to the acute inpatient rehab unit at [facility] on 10/29/2024 for 3 hours of therapy daily to restore function/independence at or near his level prior to the recent fracture. Romeo initially had severe pain in the RLE with hypertonicity. Tizanidine 2 mg TID was added to the drug regimen and since that time his pain has been adequately controlled with just Tizanidine and Tylenol. He has been sleeping well at night and has a good appetite. He is very cooperative and has made good progress with therapy. At the time of discharge from rehab he is able to ascend/descend two 6 inch steps with 1 handrail at min assist. He ascends forward and descends backwards. He is able to do 7 sit to stands in 30 seconds using his upper extremities to push up. He has completed the TUG test and 27.8 seconds using a cane at standby assist. He has ambulated up to 165 feet with a cane at [facility] on various surfaces. He can complete toilet transfer at contact-guard assist and toileting tasks at min assist. He requires moderate assistance for upper body bathing to bathe the left upper extremity. He is min assist for lower body bathing below the knees. He requires maximum assistance for lower body dressing and he is set up for upper body dressing. He is able to stand at the sink to complete oral care, hand hygiene and shaving at standby assist. Romeo has a very supportive family and they assist him at home. On the day of DC the incision is intact with no dehiscence and no purulent DC. There is no lorenza-incisional erythema and the swelling has decreased considerably since admission to rehab. Romeo was discharged on 11/09/24 and has an appt with Dr. Alexander on that day. He has an appointment with Dr. Mario Moreira on 11/17/2024 at 9 AM. Weight / BMI Weight Weight: 221 lb 9.033 oz Body Mass Index (BMI) 35.7 ABG / Lab / Microbiology Data 10/30/24 06:21 10/30/24 06:21 D/C Instructions Weight Bearing Status: Weight bearing as tolerated Keep extremity elevated above heart level: Right Leg Call your doctor if your incision/area has: Continuous Slow Oozing, Sudden Increased Bleeding, Increased Pain/ Swelling, Increased Redness, Foul Smelling Discharge and Swelling at the incision site Call your doctor if you observe: Fever of 101 or Higher, Inability to urinate, Inability to have a bowel movement, Shortness of breath, Fainting spells, Swelling in the ankles, Chest pain, Increased palpitations (irregular heartbeat), Calf discomfort, Uncontrolled pain and - (STROKE symptoms: facial droop, slurred speech, inability to get words out, weakness on 1 side of the body and not the other, numbness on 1 side of the body and not the other, inability to maintain your balance sitting or standing, vertigo. ) Suture Line Care: Avoid Pulling/Pushing and Avoid Pinching/Bending Cleanse incision/area with: Soap & Water and Keep Dressing Clean & Dry DC O2, CPAP, BIPAP Needs Home O2 Discharge instructions: No Please Follow Up With: Adonay Alexander MD When: you will also need to follow up with Dr. Alexander. Meaningful Use Info Meaningful Use Meaningful Use Diagnoses (Choose all that apply): None applicable Ischemic Stroke Statin Dosing Therapy Reference: STATIN DOSE THERAPY REFERENCE: * Patients > 75 years receive moderate or high dose statin therapy. * Patients 75 years or YOUNGER should receive HIGH intensity statin dose unless contraindicated. You will be required to document reason for non-treatment if statin daily dose does not meet guidelines. HIGH DOSE STATIN THERAPY DAILY Atorvastatin > than or = to 40 mg Rosuvastatin > than or = to 20 mg Amlodipine + Atorvastatin > than or = to 2.5/40 mg Ezetimibe + Simvastatin 10/80 mg Simvastatin 80mg Discharge Plan Admission Admit Date/Time: 10/29/24 14:42 Primary Reason for Your Visit: Debility due to ORIF R patella fx Attending Provider: Kristyn Wallace Primary Care Provider: Mario Moreira Instructions Patient Instructions: Caring for Your Incision Additional Instructions / Restrictions: 1. Do not soak the incision. You may shower and then dry the incision. If there is redness around the incision or increased drainage, increased pain or increased swelling call Dr. Alexander. Also call for fevers, sweats or shaking chills. 2. Romeo has not been taking anything for pain other than Tylenol and a muscle relaxer. I am giving you a small amount of Oxycodone to have at home in case the pain would be worse. Sometimes people tend to overdo at home and they have more pain. Discharge Orders/Prescriptions Prescriptions: New tizanidine 2 mg Tablet 2 mg PO TID Qty: 30 0RF Rx Instructions: Take 1 tab every 8 hours as needed for muscle spasms. aspirin 81 mg Tablet,Chewable 81 mg PO BIDCM Qty: 1 0RF Rx Instructions: You can stop the aspirin on 11/26/24. It is to help prevent blood clots for 1 month after surgery. oxycodone 5 mg Tablet 5 - 10 mg PO Q4H PRN PRN (Reason: Pain Score 1-10) 7 Days Qty: 20 0RF Rx Instructions: Take 1 or 2 tabs every 4 -6 hours as needed for pain not controlled with Tylenol or Tizanidine. Continued omega 5-oay-kof-fish oil [Fish Oil] 60-90-500 mg capsule 1 cap PO QDAY cholecalciferol (vitamin D3) 125 mcg (5,000 unit) capsule 125 mcg PO QDAY ipratropium bromide 42 mcg (0.06 %) spray,non-aerosol 2 spray NASAL BID acetaminophen [Acetaminophen Pain Relief] 500 mg tablet 1,000 mg PO Q8 multivitamin [Daily Multi-Vitamin] Tablet 1 tab PO DAILY TRANSFACTOR 1 tab PO DAILY FOUR LIFE capsule 2 tab PO DAILY Referrals / Follow Up: Mario Moreira DO [Primary Care Provider] - 11/17/24 9:00 am () Disposition Disposition (needs filled in before D/C Order can be placed): Home, Self Care Charges/Coding Visit Charges Inpatient E&M: 52007 Disch Hosp
[2024-11-08 18:00] VITALS: BP 121/79; PULSE 84; RESP 17; TEMP 36.6; O2SAT 98
[2024-11-08 21:00] VITALS: BMI 35.7
[2024-11-08 22:00] VITALS: PULSE 80; O2SAT 98
[2024-11-09] MEDS: tiZANidine HCl 2 MG Tablet PO (06:03)
[2024-11-09] MEDS: Acetaminophen 500 MG Tablet 1000 MG PO (06:03)
[2024-11-09 06:29] VITALS: BP 128/85; PULSE 75; RESP 16; TEMP 36.6; O2SAT 98
[2024-11-09] MEDS: Omega-3 Acid Ethyl Esters 1 GM Capsule PO (07:52)
[2024-11-09] MEDS: Cholecalciferol (Vit D3) 125 MCG CAPSULE (5,000 UNITS) PO (07:52)
[2024-11-09] MEDS: Ipratropium Bromide 0.06% NASAL SPRAY 2 SPRAY NASAL (07:52)
[2024-11-09] MEDS: Multivitamins,Therapeutic Tablet 1 TABLET PO (07:53)
[2024-11-09] MEDS: Aspirin 81 MG TAB.CHEW PO (07:53)
[2024-11-09 09:09] VITALS: BMI 35.7
[2024-11-09 09:30] VITALS: BP 128/85; PULSE 75; RESP 16; TEMP 36.6; O2SAT 98
--- NOTE | 2024-11-09 09:31 | NURSING ---
discharged home with parents. discharge instructions, medications and appointments reviewed with pt and family, denies questions or concerns
== END 2024-11-09 09:32 | disposition home or self-care (01) | DRG 560 ==
PROVIDERS: Admitting Provider Internal Medicine; PCP Family Medicine; Referring Provider Internal Medicine; Visit Provider Internal Medicine
DX: S82.001D Unspecified fracture of right patella, subsequent encounter for closed fracture with routine healing (principal); I69.351 Hemiplegia and hemiparesis following cerebral infarction affecting right dominant side; I69.319 Unspecified symptoms and signs involving cognitive functions following cerebral infarction; I10 Essential (primary) hypertension; E66.9 Obesity, unspecified; E78.00 Pure hypercholesterolemia, unspecified; W18.30XD Fall on same level, unspecified, subsequent encounter; I69.398 Other sequelae of cerebral infarction; M21.371 Foot drop, right foot; Z86.718 Personal history of other venous thrombosis and embolism; N39.42 Incontinence without sensory awareness; G89.18 Other acute postprocedural pain; Z86.711 Personal history of pulmonary embolism; Z79.01 Long term (current) use of anticoagulants; Z79.899 Other long term (current) drug therapy; Z68.36 Body mass index [BMI] 36.0-36.9, adult
CPT/HCPCS: 36415; 80053; 83735; 84100; 85025; 97110; 97112; 97116; 97162; 97166; 97530; 97535; 97542; 97802; A4216

== ENCOUNTER 2024-12-06 13:41 | Outpatient (RCR) | payer MEDICARE, SELFPAY ==
--- NOTE | 2024-12-06 14:50 | HP.PTEVAL ---
Patient's Visit Information Visit Information Visit Information: ANAND MARTÍNEZ is a 39 year old M referred to Physical Therapy by Dr. Adonay Alexander MD with a diagnosis of R patellar fracture. Date of Evaluation: 12/06/24 Physical Therapist: Fabian Conrad, PT, ATC Visit Plan Frequency: 1x/Week Duration: 1 Week Plan: Pt has returned to his premorbid level of function since sustaining his R patellar fracture. Pt will continue independently with R knee stretching and strengthening at this time. Pt is discharged. Subjective Subjective: DOS 10/27/24. Pt had an ORIF performed at that time to fix a fractured R patella. Pt was walking in his driveway when he fell and landed on his R knee. This resulted in a fracture to his R patella. Pt was treated on the rehab floor for 2 weeks after his surgery where he was treated by PT. Pt notes he had to learn how to walk again after his surgery. Pt notes he is walking well now. Pt feels like his walking is about back to where it was previously. Pt works at [employer] in [place] which he hopes to be able to return to tomorrow. Pt reports he is not in any pain today. Pt reports he has not been in pain for a week now. Pt denies any new tingling or numbness in his R LE other than the numbness he had from a previous stroke. Pt denies sleep at this time. Pt reports he has not been given a HEP at this time. 0/10 pain at this time. Pt has 13 steps to his basement that he has to negotiate to get to his puzzle room. Pt has not attempted them yet. Pain R knee: Pain Intensity (Out of 10): 0 Objective Objective: Neuro: B LE sensation is WNL to light touch. TU seconds ROM: R knee 0-20-85 degrees ; L knee 0-10-120 degrees MMT: R knee flex= 8, ext= 4 #F; L knee flex= 46, ext= 40 #F Stairs: Pt is able to negotiate 10 stairs with one handrail, one step at a time, without difficulty Goals Goal 1:: NA Rehabilitation Potential Physical Therapy Diagnosis: Pt has R knee pain, R LE weakness, and limited R knee ROM secondary to R patellar fracture Rehabilitation Potential: Good Anticipated Interventions Patient/Client Instruction: Educate patient on: Condition and Plan of Care For the Purpose of:: To improve self management Therapeutic Exercise to Include: Strength training, Endurance training, Passive ROM and Active ROM For the Purpose of:: To increase ROM and To improve muscle performance and motor function Text: Thank you for the opportunity to evaluate your patient. For Medicare and Medicare HMO plans, please review the plan of care and approve it. It will need to be FAXED BACK to us at [phone] for Medicare purposes. For Medicare only, by signing this I certify the plan of care. Please let me know if there are questions or concerns regarding this plan of care. Physician Signature: Date:
--- NOTE | 2024-12-06 14:51 | HP.PT.NRP ---
Patient Information Patient Information: ANAND MARTÍNEZ was seen in my office for initial evaluation on 12/06/24. The following Plan of Care was established for this patient: POC Established Initial Frequency: 1x/Week Initial Duration: 1 Week Anticipated Interventions Patient/Client Instruction: Educate patient on: Condition and Plan of Care For the Purpose of:: To improve self management Therapeutic Exercise to Include: Strength training, Endurance training, Passive ROM and Active ROM For the Purpose of:: To increase ROM and To improve muscle performance and motor function Last Seen Last Seen: This patient was last seen in our office . Pertinent comments regarding their Physical therapy will appear below: Pt is discharged at this time. At this point I will be discontinuing this patient from physical therapy. I would be happy to see this patient again in the future if found appropriate by the physician. Thank you! Fabian Conrad, PT, ATC
== END 2024-12-06 19:00 | disposition home or self-care (01) ==
LOC: PT 13:41
PROVIDERS: PCP Family Medicine; Referring Provider Orthopaedic Surgery Sports Medicine; Visit Provider Orthopaedic Surgery Sports Medicine
DX: Z98.890 Other specified postprocedural states (principal); Z87.81 Personal history of (healed) traumatic fracture
CPT/HCPCS: 97161